=== PATIENT | female | born 1980 | race Caucasian/White ===

== ENCOUNTER 2016-08-12 03:42 | Emergency (ER) | payer MEDICAID, OTHER ==
[2016-08-12] MEDS ORDERED: NORCO 5/325MG TABLET (BULK) As Ordered ONE (04:49)
[2016-08-12] MEDS ORDERED: predniSONE 20 MG TAB As Ordered ONE (04:49)
--- NOTE | 2016-08-12 04:58 | EDDOCDS ---
Nurse's Notes [facility] Name: Angela Garcia Age: 36 yrs Sex: Female : 1980 Arrival Date: 08/12/2016 Time: 03:42 Bed 15 Private MD: No Pcp Diagnosis: Low back pain Presentation: 08/12 03:46 Presenting complaint: Patient states: out of allergy medication, states has been sls1 sneezing and thinks she pulled a muscle, reports pain to center of her back. Acute neurological deficits are not present. Mechanism of Injury: No Mechanism of Injury. Adult Sepsis Screening: The patient does not have new or worsening altered mentation. Patient's respiratory rate is less than 22. Systolic blood pressure is greater than 100. Patient has a qSOFA score of 0- Negative Sepsis Screen. Suicide/Homicide risk assessment- the patient denies having any suicidal and/or homicidal ideations and does not present with any other emotional, behavioral or mental health complaints. 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 Transition of care: patient was not received from another setting of care. 03:46 Acuity: EVERETTE Level 4 sls1 03:46 Method Of Arrival: Walkin/Carried/Asstd sls1 Triage Assessment: 03:50 General: Appears in no apparent distress, Behavior is appropriate for age, cooperative. sls1 Pain: Location: back Pain currently is 8 out of 10 on a pain scale. Pt Declines HIV testing. Neurological: No deficits noted. Respiratory: No deficits noted. 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 tyelnol as needed (Last dose: 08/12/2016 00:00) - PMHx: Seizures; PTSD; Schizophrenia; Depression; - PSHx: Hysterectomy; - Social history: Smoking status: Patient uses tobacco products, current every day smoker. No barriers to communication noted, The patient speaks fluent British. - Family history: Not pertinent. - : The pt / caregiver states he / she is not on anticoagulants. Home medication list is obtained from the patient. 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 Screenin:35 Screening information is obtained from the patient. Fall risk: No risks identified. tm5 Assistance ADL's: requires no assistance with activities of daily living. Abuse/DV Screen: The patient / caregiver reports he/she is: not in a situation that causes fear, pain or injury. Nutritional screening: No deficits noted. Advance Directives: Currently, there is no health care proxy. There is no active DNR order. home support is adequate. Assessment: 04:36 General: Appears in no apparent distress, Behavior is appropriate for age, cooperative. tm5 Pain: Location: left low back, left mid back, right mid back and right low back Pain currently is 9 out of 10 on a pain scale. Quality of pain is described as shooting, throbbing. Neurological: Level of Consciousness is awake, alert, Oriented to person, place, time. Respiratory: Airway is patent Respiratory effort is even, unlabored, Respiratory pattern is regular, symmetrical. GI: No deficits noted. : No deficits noted. Derm: Skin is pink, warm & dry. normal. Musculoskeletal: Reports pain in lumbar area, left low back, left mid back, right mid back and right low back. Vital Signs: 03:50 Pulse 86; Resp 20; Temp 97.8; Pulse Ox 99% ; Weight 68.04 kg (R); Height 5 ft. 5 in. sls1 (165.10 cm); Pain 8/10; 03:54 BP 140 / 93; sls1 03:50 Body Mass Index 24.96 (68.04 kg, 165.10 cm) [facility] Vitals: 03:50 Log In Time: August 12, 2016 at 03:42. [facility] ED Course: 03:44 Patient visited by Shan Simon Reg. pm4 03:44 Patient moved to Waiting pm4 03:45 No Pcp is Private Physician. pm4 03:47 Triage Initiated sls1 03:52 Patient moved to 15 sls1 04:15 Lj Torrez DO is Attending Physician. mm11 04:15 Patient visited by Lj Torrez DO. mm11 04:35 ED physician to see patient. tm5 04:36 The patient / caregiver is instructed regarding the plan of care and ED course. tm5 04:39 Patient visited by Lj Torrez DO. mm11 04:44 [facility] is Referral Physician. mm11 04:57 No IV's were initiated during this patient's visit. No procedures done that require tm5 assistance. Administered Medications: 04:55 Drug: predniSONE 40 mg [prednisone 20 mg tablet (2 tabs)] Route: PO; tm5 04:56 Follow up: Response: Pt left department before re-evaluation is appropriate tm5 04:56 Drug: HYDROcodone-acetaminophen 4 pack- 1 packets [hydrocodone 5 mg-acetaminophen 325 tm5 mg tablet (1 tabs)] {Co-Signature: sls1 (Sabrina Haines RN).} Route: PO; 04:56 Follow up: Response: Med's dispensed home tm5 Order Results: There are currently no results for this order. Outcome: 04:44 Discharge ordered by Provider. mm11 04:57 Discharge Assessment: Patient awake, alert and oriented x 3. No cognitive and/or tm5 functional deficits noted. Patient verbalized understanding of disposition instructions. patient administered narcotics - no. The following High Risk Discharge criteria are identified: None. Discharged to home ambulatory. Condition: good Condition: stable. Discharge instructions given to patient, Instructed on discharge instructions, follow up and referral plans. medication usage, no driving heavy equipment, Demonstrated understanding of instructions, medications, Pt was receptive of discharge instructions/ teaching. Prescriptions given X 3. No special radiology studies were completed. Property :Personal belongings accompany Pt. 04:57 Patient left the ED. tm5 Signatures: Lj Torrez DO DO mm11 Sabrina Haines RN RN sls1 Raquel Bustos RN RN tm5 Shan Simon, Reg Reg pm4 Sabrina Haines RN sls1 JUNIOR
--- NOTE | 2016-08-12 04:58 | EDDOCDS ---
Physician Documentation [facility] Name: Angela Garcia Age: 36 yrs Sex: Female : 1980 Arrival Date: 08/12/2016 Time: 03:42 Bed 15 Private MD: No Pcp Disposition: 08/12/16 04:44 Discharged to Home/Self Care. Impression: Low back pain. - Condition is Stable. - Discharge Instructions: Back Pain, Adult, Musculoskeletal Pain, Back Pain, Adult, [id number]. - Prescriptions for [place] 5- 325 mg Oral Tablet - take 1 tablet by ORAL route every 6 hours As needed MDD: 4 tabs; 6 tablet. Prednisone 20 mg Oral Tablet - take 2 tablet by ORAL route once daily for 5 days; 10 tablet. Cyclobenzaprine 10 mg Oral Tablet - take 1 tablet by ORAL route 3 times per day As needed; 15 tablet. - Medication Reconciliation, Local Pharmacy Hours form. - Follow up: [facility]; When: Call to arrange an appointment; Reason: To establish care. - Problem is an acute exacerbation. - Symptoms have improved. Historical: - Allergies: Amoxicillin; Bactrim; Sudafed; Ibuprofen; Penicillins; Pyridium; - Home Meds: 1. tyelnol as needed (Last dose: 08/12/2016 00:00) - PMHx: Seizures; PTSD; Schizophrenia; Depression; - PSHx: Hysterectomy; - Social history: Smoking status: Patient uses tobacco products, current every day smoker. No barriers to communication noted, The patient speaks fluent Malay. - Family history: Not pertinent. - : The pt / caregiver states he / she is not on anticoagulants. Home medication list is obtained from the patient. 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 5 in. (165.10 cm); Pain 8/10; 03:54 BP 140 / 93; sls1 03:50 Body Mass Index 24.96 (68.04 kg, 165.10 cm) sls1 MDM: 04:45 predniSONE 40 mg PO once; administer with food or milk ordered. mm11 04:45 HYDROcodone-acetaminophen 4 pack- 5 mg-325 mg 1 packets PO Per package directions; mm11 Dispense with patient. 1 po q4h prn for pain ordered. 04:55 Financial registration complete. hs2 Administered Medications: 04:55 Drug: predniSONE 40 mg [prednisone 20 mg tablet (2 tabs)] Route: PO; tm5 04:56 Follow up: Response: Pt left department before re-evaluation is appropriate tm5 04:56 Drug: HYDROcodone-acetaminophen 4 pack- 1 packets [hydrocodone 5 mg-acetaminophen 325 tm5 mg tablet (1 tabs)] {Co-Signature: henny1 (Sabrina Haines RN).} Route: PO; 04:56 Follow up: Response: Med's dispensed home tm5 Signatures: Lj Torrez, DO mm11 Sabrina Haines RN RN sls1 Isabel Kyle, Reg Reg hs2 Raquel Bustos RN RN tm5 Sabrina Haines RN sls1 MTDD
--- NOTE | 2016-08-14 05:58 | EDDOCDS ---
Physician Documentation [facility] Name: Angela Garcia Age: 36 yrs Sex: Female : 1980 Arrival Date: 08/12/2016 Time: 03:42 Bed 15 Private MD: No Pcp Disposition: 08/12/16 04:44 Discharged to Home/Self Care. Impression: Low back pain. - Condition is Stable. - Discharge Instructions: Back Pain, Adult, Musculoskeletal Pain, Back Pain, Adult, [id number]. - Prescriptions for [place] 5- 325 mg Oral Tablet - take 1 tablet by ORAL route every 6 hours As needed MDD: 4 tabs; 6 tablet. Prednisone 20 mg Oral Tablet - take 2 tablet by ORAL route once daily for 5 days; 10 tablet. Cyclobenzaprine 10 mg Oral Tablet - take 1 tablet by ORAL route 3 times per day As needed; 15 tablet. - Medication Reconciliation, Local Pharmacy Hours form. - Follow up: [facility]; When: Call to arrange an appointment; Reason: To establish care. - Problem is an acute exacerbation. - Symptoms have improved. Historical: - Allergies: Amoxicillin; Bactrim; Sudafed; Ibuprofen; Penicillins; Pyridium; - Home Meds: 1. tyelnol as needed (Last dose: 08/12/2016 00:00) - PMHx: Seizures; PTSD; Schizophrenia; Depression; - PSHx: Hysterectomy; - Social history: Smoking status: Patient uses tobacco products, current every day smoker. No barriers to communication noted, The patient speaks fluent Spanish. - Family history: Not pertinent. - : The pt / caregiver states he / she is not on anticoagulants. Home medication list is obtained from the patient. 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 5 in. (165.10 cm); Pain 8/10; 03:54 BP 140 / 93; sls1 03:50 Body Mass Index 24.96 (68.04 kg, 165.10 cm) sls1 MDM: 04:45 predniSONE 40 mg PO once; administer with food or milk ordered. mm11 04:45 HYDROcodone-acetaminophen 4 pack- 5 mg-325 mg 1 packets PO Per package directions; mm11 Dispense with patient. 1 po q4h prn for pain ordered. 04:55 Financial registration complete. hs2 05:03 [facility] Payment Agreement was scanned into [employer] and attached to record. hs2 12:29 T-Sheet-- Draft Copy was scanned into [employer] and attached to record. gb Administered Medications: 04:55 Drug: predniSONE 40 mg [prednisone 20 mg tablet (2 tabs)] Route: PO; tm5 04:56 Follow up: Response: Pt left department before re-evaluation is appropriate tm5 04:56 Drug: HYDROcodone-acetaminophen 4 pack- 1 packets [hydrocodone 5 mg-acetaminophen 325 tm5 mg tablet (1 tabs)] {Co-Signature: igor (Sabrina Haines RN).} Route: PO; 04:56 Follow up: Response: Med's dispensed home tm5 Signatures: Tamela Mariee, Reg Reg gb Lj Torrez, DO mm11 Sabrina Haines RN RN sls1 Isabel Kyle, Reg Reg hs2 Raquel Bustos RN RN tm5 Sabrina Haines RN sls1 The chart was reviewed and I authenticate all verbal orders and agree with the evaluation and treatment provided.Attachments: 05:03 [facility] Payment Agreement hs2 12:29 T-Sheet-- Draft Copy gb Chart Complete MTDD
--- NOTE | 2016-08-14 05:58 | EDDOCDS ---
Nurse's Notes [facility] Name: Angela Garcia Age: 36 yrs Sex: Female : 1980 Arrival Date: 08/12/2016 Time: 03:42 Bed 15 Private MD: No Pcp Diagnosis: Low back pain Presentation: 08/12 03:46 Presenting complaint: Patient states: out of allergy medication, states has been sls1 sneezing and thinks she pulled a muscle, reports pain to center of her back. Acute neurological deficits are not present. Mechanism of Injury: No Mechanism of Injury. Adult Sepsis Screening: The patient does not have new or worsening altered mentation. Patient's respiratory rate is less than 22. Systolic blood pressure is greater than 100. Patient has a qSOFA score of 0- Negative Sepsis Screen. Suicide/Homicide risk assessment- the patient denies having any suicidal and/or homicidal ideations and does not present with any other emotional, behavioral or mental health complaints. 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 Transition of care: patient was not received from another setting of care. 03:46 Acuity: EVERETTE Level 4 sls1 03:46 Method Of Arrival: Walkin/Carried/Asstd sls1 Triage Assessment: 03:50 General: Appears in no apparent distress, Behavior is appropriate for age, cooperative. sls1 Pain: Location: back Pain currently is 8 out of 10 on a pain scale. Pt Declines HIV testing. Neurological: No deficits noted. Respiratory: No deficits noted. 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 tyelnol as needed (Last dose: 08/12/2016 00:00) - PMHx: Seizures; PTSD; Schizophrenia; Depression; - PSHx: Hysterectomy; - Social history: Smoking status: Patient uses tobacco products, current every day smoker. No barriers to communication noted, The patient speaks fluent Rwandan. - Family history: Not pertinent. - : The pt / caregiver states he / she is not on anticoagulants. Home medication list is obtained from the patient. 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 Screenin:35 Screening information is obtained from the patient. Fall risk: No risks identified. tm5 Assistance ADL's: requires no assistance with activities of daily living. Abuse/DV Screen: The patient / caregiver reports he/she is: not in a situation that causes fear, pain or injury. Nutritional screening: No deficits noted. Advance Directives: Currently, there is no health care proxy. There is no active DNR order. home support is adequate. Assessment: 04:36 General: Appears in no apparent distress, Behavior is appropriate for age, cooperative. tm5 Pain: Location: left low back, left mid back, right mid back and right low back Pain currently is 9 out of 10 on a pain scale. Quality of pain is described as shooting, throbbing. Neurological: Level of Consciousness is awake, alert, Oriented to person, place, time. Respiratory: Airway is patent Respiratory effort is even, unlabored, Respiratory pattern is regular, symmetrical. GI: No deficits noted. : No deficits noted. Derm: Skin is pink, warm & dry. normal. Musculoskeletal: Reports pain in lumbar area, left low back, left mid back, right mid back and right low back. Vital Signs: 03:50 Pulse 86; Resp 20; Temp 97.8; Pulse Ox 99% ; Weight 68.04 kg (R); Height 5 ft. 5 in. sls1 (165.10 cm); Pain 8/10; 03:54 BP 140 / 93; sls1 03:50 Body Mass Index 24.96 (68.04 kg, 165.10 cm) [facility] Vitals: 03:50 Log In Time: August 12, 2016 at 03:42. [facility] ED Course: 03:44 Patient visited by Shan Simon Reg. pm4 03:44 Patient moved to Waiting pm4 03:45 No Pcp is Private Physician. pm4 03:47 Triage Initiated sls1 03:52 Patient moved to 15 sls1 04:15 Lj Torrez DO is Attending Physician. mm11 04:15 Patient visited by Lj Torrez DO. mm11 04:35 ED physician to see patient. tm5 04:36 The patient / caregiver is instructed regarding the plan of care and ED course. tm5 04:39 Patient visited by Lj Torrez DO. mm11 04:44 [facility] is Referral Physician. mm11 04:57 No IV's were initiated during this patient's visit. No procedures done that require tm5 assistance. 05:03 [facility] Payment Agreement was scanned into [employer] and attached to record. hs2 12:29 T-Sheet-- Draft Copy was scanned into [employer] and attached to record. gb Administered Medications: 04:55 Drug: predniSONE 40 mg [prednisone 20 mg tablet (2 tabs)] Route: PO; tm5 04:56 Follow up: Response: Pt left department before re-evaluation is appropriate tm5 04:56 Drug: HYDROcodone-acetaminophen 4 pack- 1 packets [hydrocodone 5 mg-acetaminophen 325 tm5 mg tablet (1 tabs)] {Co-Signature: sls1 (Sabrina Haines RN).} Route: PO; 04:56 Follow up: Response: Med's dispensed home tm5 Order Results: There are currently no results for this order. Outcome: 04:44 Discharge ordered by Provider. mm11 04:57 Discharge Assessment: Patient awake, alert and oriented x 3. No cognitive and/or tm5 functional deficits noted. Patient verbalized understanding of disposition instructions. patient administered narcotics - no. The following High Risk Discharge criteria are identified: None. Discharged to home ambulatory. Condition: good Condition: stable. Discharge instructions given to patient, Instructed on discharge instructions, follow up and referral plans. medication usage, no driving heavy equipment, Demonstrated understanding of instructions, medications, Pt was receptive of discharge instructions/ teaching. Prescriptions given X 3. No special radiology studies were completed. Property :Personal belongings accompany Pt. 04:57 Patient left the ED. tm5 Signatures: Tamela Mariee, Reg Reg gb Lj Torrez, DO mm11 Sabrina Haines RN RN sls1 Isabel Kyle, Reg Reg hs2 Raquel Bustos RN RN tm5 Shan Simon, Reg Reg pm4 Sabrina Haines RN sls1 Chart Complete MTDD
--- NOTE | 2016-08-14 05:58 | EDDOCDS ---
Physician Documentation [facility] Name: Angela Garcia Age: 36 yrs Sex: Female : 1980 Arrival Date: 08/12/2016 Time: 03:42 Bed 15 Private MD: No Pcp Disposition: 08/12/16 04:44 Discharged to Home/Self Care. Impression: Low back pain. - Condition is Stable. - Discharge Instructions: Back Pain, Adult, Musculoskeletal Pain, Back Pain, Adult, [id number]. - Prescriptions for [place] 5- 325 mg Oral Tablet - take 1 tablet by ORAL route every 6 hours As needed MDD: 4 tabs; 6 tablet. Prednisone 20 mg Oral Tablet - take 2 tablet by ORAL route once daily for 5 days; 10 tablet. Cyclobenzaprine 10 mg Oral Tablet - take 1 tablet by ORAL route 3 times per day As needed; 15 tablet. - Medication Reconciliation, Local Pharmacy Hours form. - Follow up: [facility]; When: Call to arrange an appointment; Reason: To establish care. - Problem is an acute exacerbation. - Symptoms have improved. Historical: - Allergies: Amoxicillin; Bactrim; Sudafed; Ibuprofen; Penicillins; Pyridium; - Home Meds: 1. tyelnol as needed (Last dose: 08/12/2016 00:00) - PMHx: Seizures; PTSD; Schizophrenia; Depression; - PSHx: Hysterectomy; - Social history: Smoking status: Patient uses tobacco products, current every day smoker. No barriers to communication noted, The patient speaks fluent Greek. - Family history: Not pertinent. - : The pt / caregiver states he / she is not on anticoagulants. Home medication list is obtained from the patient. 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 5 in. (165.10 cm); Pain 8/10; 03:54 BP 140 / 93; sls1 03:50 Body Mass Index 24.96 (68.04 kg, 165.10 cm) sls1 MDM: 04:45 predniSONE 40 mg PO once; administer with food or milk ordered. mm11 04:45 HYDROcodone-acetaminophen 4 pack- 5 mg-325 mg 1 packets PO Per package directions; mm11 Dispense with patient. 1 po q4h prn for pain ordered. 04:55 Financial registration complete. hs2 05:03 [facility] Payment Agreement was scanned into [employer] and attached to record. hs2 12:29 T-Sheet-- Draft Copy was scanned into [employer] and attached to record. gb Administered Medications: 04:55 Drug: predniSONE 40 mg [prednisone 20 mg tablet (2 tabs)] Route: PO; tm5 04:56 Follow up: Response: Pt left department before re-evaluation is appropriate tm5 04:56 Drug: HYDROcodone-acetaminophen 4 pack- 1 packets [hydrocodone 5 mg-acetaminophen 325 tm5 mg tablet (1 tabs)] {Co-Signature: igor (Sabrina Haines RN).} Route: PO; 04:56 Follow up: Response: Med's dispensed home tm5 Signatures: Tamela Mariee, Reg Reg gb Lj Torrez, DO mm11 Sabrina Haines RN RN sls1 Isabel Kyle, Reg Reg hs2 Raquel Bustos RN RN tm5 Sabrina Haines RN sls1 The chart was reviewed and I authenticate all verbal orders and agree with the evaluation and treatment provided.Attachments: 05:03 [facility] Payment Agreement hs2 12:29 T-Sheet-- Draft Copy gb Chart Complete MTDD
== END 2016-08-12 04:57 | disposition home or self-care (01) ==
LOC: M ED 03:42
DX: K52.9 Noninfective gastroenteritis and colitis, unspecified (principal)

== ENCOUNTER 2016-08-18 23:38 | Emergency (ER) | payer OTHER ==
[2016-08-19] MEDS ORDERED: ONDANSETRON 4 MG ORAL DISINTEGRATING TAB (S0181) As Ordered ONE (00:03)
--- NOTE | 2016-08-19 00:11 | EDDOCDS ---
Nurse's Notes [facility] Name: Angela Garcia Age: 36 yrs Sex: Female : 1980 Arrival Date: 08/18/2016 Time: 23:38 Bed I5 / M5 Private MD: No PCP Diagnosis: Low back pain-recheck Presentation: 08/18 23:48 Presenting complaint: Patient states: Back pain that began on 08/12 . Pt reports she was lf1 diagnosed with back sprain after moving heavy furniture and given pain meds and muscle relaxers. Pt. states she has not taken the pain meds because they make her nauseated. Pt states pain is currently 7/10. Acute neurological deficits are not present. Mechanism of Injury: Bending. Adult Sepsis Screening: The patient does not have new or worsening altered mentation. Patient's respiratory rate is less than 22. Systolic blood pressure is greater than 100. Patient has a qSOFA score of 0- Negative Sepsis Screen. Suicide/Homicide risk assessment- the patient denies having any suicidal and/or homicidal ideations and does not present with any other emotional, behavioral or mental health complaints. Status: Patient is not a environmental services attendant or dependent. Transition of care: patient was not received from another setting of care. 23:48 Acuity: EVERETTE Level 4 lf1 23:48 Method Of Arrival: Walkin/Carried/Asstd lf1 Triage Assessment: 23:54 General: Appears uncomfortable, Behavior is anxious, restless. Pain: Location: back lf1 Pain currently is 7 out of 10 on a pain scale. HIV screening NA for this visit Offered previously. Neurological: Level of Consciousness is awake, alert, Oriented to person, place, time. Respiratory: Respiratory effort is even, unlabored. GI: Denies nausea, vomiting. Derm: Skin is normal. 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 Tylenol 325 mg Oral tab 2 tabs every 4-6 hours - PMHx: Depression; PTSD; Schizophrenia; Seizures; - PSHx: Hysterectomy; - Social history: Smoking status: Patient uses tobacco products, current every day smoker. No barriers to communication noted, The patient speaks fluent German, Speaks appropriately for age, Preferred Language: German. - Family history: Not pertinent. - : The pt / caregiver states he / she is not on anticoagulants. Home medication list is obtained from the patient. 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 Screenin/25 00:09 Screening information is obtained from the patient. Fall risk: No risks identified. ko2 Assistance ADL's: requires no assistance with activities of daily living. Abuse/DV Screen: The patient / caregiver reports he/she is: not in a situation that causes fear, pain or injury. Nutritional screening: No deficits noted. Advance Directives: Currently, there is no health care proxy. There is no active DNR order. There is no living will. There is no Power of Jumpbasting Machine Operator. home support is adequate. Assessment: 00:08 General: Appears in no apparent distress, comfortable, Behavior is appropriate for age, ko2 cooperative. Pain: Location: back. Neurological: Level of Consciousness is awake, alert. Respiratory: Airway is patent Respiratory effort is even, unlabored. Derm: Skin is normal. Vital Signs: 08/18 23:39 BP 127 / 68; Pulse 88; Resp 18 S; Temp 98.0(O); Pulse Ox 96% on R/A; Weight 88.45 kg dd6 (R); Height 5 ft. 5 in. (165.10 cm) (R); 23:39 Body Mass Index 32.45 (88.45 kg, 165.10 cm) dd6 Vitals: 23:39 Log In Time: August 18, 2016 at 23:37. dd6 ED Course: 23:39 Patient visited by Zachariah Dorsey PCA. dd6 23:39 No PCP is Private Physician. dd6 23:39 Patient moved to Waiting dd6 23:41 Patient moved to Pre RCE dd6 23:53 Triage Initiated lf1 23:54 Gonzalez Waldron PA-C is PHCP. cc10 23:54 Jesus Mccord MD is Attending Physician. cc10 23:55 Patient moved to I5 / lf1 23:58 Patient visited by Gonzalez Waldron PA-C. cc10 23:58 Patient visited by Gonzalez Waldron PA-C. cc10 08/19 00:02 [facility] is Referral Physician. cc10 00:09 The patient / caregiver is instructed regarding the plan of care and ED course. ko2 00:10 No IV's were initiated during this patient's visit. No procedures done that require ko2 assistance. Administered Medications: 00:07 Drug: Ondansetron ODT 4 mg [ondansetron 4 mg disintegrating tablet (1 tabs)] Route: PO; ko2 Order Results: There are currently no results for this order. Outcome: 00:02 Discharge ordered by Provider. cc10 00:10 Discharge Assessment: Patient awake, alert and oriented x 3. No cognitive and/or ko2 functional deficits noted. Patient verbalized understanding of disposition instructions. patient administered narcotics - no. The following High Risk Discharge criteria are identified: None. Discharged to home ambulatory. Condition: stable. Discharge instructions given to patient, Instructed on discharge instructions, follow up and referral plans. medication usage, Demonstrated understanding of instructions, medications, Pt was receptive of discharge instructions/ teaching. Prescriptions given X 1. No special radiology studies were completed. Property sent home with patient. 00:11 Patient left the ED. ko2 Signatures: Amy Gomez,RN RN lf1 Zachariah Dorsey, BIOCHEMISTRY TECHNOLOGIST BIOCHEMISTRY TECHNOLOGIST dd6 Gonzalez Waldron PABaljinderC PA-C cc10 Lisa Lassiter,RN RN ko2 MTDD
--- NOTE | 2016-08-19 00:11 | EDDOCDS ---
Physician Documentation [facility] Name: Angela Garcia Age: 36 yrs Sex: Female : 1980 Arrival Date: 08/18/2016 Time: 23:38 Bed I5 / M5 Private MD: No PCP Disposition: 08/19/16 00:02 Discharged to Home/Self Care. Impression: Low back pain - recheck. - Condition is Stable. - Prescriptions for ZOFRAN ODT 4 mg - dissolve 1 tablet by ORAL route 4 times per day As needed do not chew, do not swallow whole; 10 tablet. - Medication Reconciliation form. - Follow up: Emergency Department; When: As needed. [facility]; When: Call to arrange an appointment; Reason: Recheck today's complaints, Continuance of care, To establish care. - Problem is chronic. - Symptoms are unchanged. Historical: - Allergies: Amoxicillin; Bactrim; Ibuprofen; PENICILLINS; Pyridium; Sudafed; - Home Meds: 1. Tylenol 325 mg Oral tab 2 tabs every 4-6 hours - PMHx: Depression; PTSD; Schizophrenia; Seizures; - PSHx: Hysterectomy; - Social history: Smoking status: Patient uses tobacco products, current every day smoker. No barriers to communication noted, The patient speaks fluent Yi, Speaks appropriately for age, Preferred Language: Yi. - Family history: Not pertinent. - : The pt / caregiver states he / she is not on anticoagulants. Home medication list is obtained from the patient. 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 5 in. (165.10 cm) (R); 23:39 Body Mass Index 32.45 (88.45 kg, 165.10 cm) dd6 MDM: 08/19 00:01 Ondansetron ODT Oral Disintegrating Tablet 4 mg PO once ordered. cc10 Administered Medications: 00:07 Drug: Ondansetron ODT 4 mg [ondansetron 4 mg disintegrating tablet (1 tabs)] Route: PO; ko2 Signatures: Amy GomezRN RN lf1 Gonzalez Waldron, BRADYC PABaljinderC cc10 Lisa Lassiter,SCARLETT RN ko2 MTDD
--- NOTE | 2016-08-21 01:12 | EDDOCDS ---
Nurse's Notes [facility] Name: Angela Garcia Age: 36 yrs Sex: Female : 1980 Arrival Date: 08/18/2016 Time: 23:38 Bed I5 / M5 Private MD: No PCP Diagnosis: Low back pain-recheck Presentation: 08/18 23:48 Presenting complaint: Patient states: Back pain that began on 08/12 . Pt reports she was lf1 diagnosed with back sprain after moving heavy furniture and given pain meds and muscle relaxers. Pt. states she has not taken the pain meds because they make her nauseated. Pt states pain is currently 7/10. Acute neurological deficits are not present. Mechanism of Injury: Bending. Adult Sepsis Screening: The patient does not have new or worsening altered mentation. Patient's respiratory rate is less than 22. Systolic blood pressure is greater than 100. Patient has a qSOFA score of 0- Negative Sepsis Screen. Suicide/Homicide risk assessment- the patient denies having any suicidal and/or homicidal ideations and does not present with any other emotional, behavioral or mental health complaints. Status: Patient is not a business services tech or dependent. Transition of care: patient was not received from another setting of care. 23:48 Acuity: EVERETTE Level 4 lf1 23:48 Method Of Arrival: Walkin/Carried/Asstd lf1 Triage Assessment: 23:54 General: Appears uncomfortable, Behavior is anxious, restless. Pain: Location: back lf1 Pain currently is 7 out of 10 on a pain scale. HIV screening NA for this visit Offered previously. Neurological: Level of Consciousness is awake, alert, Oriented to person, place, time. Respiratory: Respiratory effort is even, unlabored. GI: Denies nausea, vomiting. Derm: Skin is normal. 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 Tylenol 325 mg Oral tab 2 tabs every 4-6 hours - PMHx: Depression; PTSD; Schizophrenia; Seizures; - PSHx: Hysterectomy; - Social history: Smoking status: Patient uses tobacco products, current every day smoker. No barriers to communication noted, The patient speaks fluent Yakut, Speaks appropriately for age, Preferred Language: Yakut. - Family history: Not pertinent. - : The pt / caregiver states he / she is not on anticoagulants. Home medication list is obtained from the patient. 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 Screenin/25 00:09 Screening information is obtained from the patient. Fall risk: No risks identified. ko2 Assistance ADL's: requires no assistance with activities of daily living. Abuse/DV Screen: The patient / caregiver reports he/she is: not in a situation that causes fear, pain or injury. Nutritional screening: No deficits noted. Advance Directives: Currently, there is no health care proxy. There is no active DNR order. There is no living will. There is no Power of Business Office Assistant. home support is adequate. Assessment: 00:08 General: Appears in no apparent distress, comfortable, Behavior is appropriate for age, ko2 cooperative. Pain: Location: back. Neurological: Level of Consciousness is awake, alert. Respiratory: Airway is patent Respiratory effort is even, unlabored. Derm: Skin is normal. Vital Signs: 08/18 23:39 BP 127 / 68; Pulse 88; Resp 18 S; Temp 98.0(O); Pulse Ox 96% on R/A; Weight 88.45 kg dd6 (R); Height 5 ft. 5 in. (165.10 cm) (R); 23:39 Body Mass Index 32.45 (88.45 kg, 165.10 cm) dd6 Vitals: 23:39 Log In Time: August 18, 2016 at 23:37. dd6 ED Course: 23:39 Patient visited by Zachariah Dorsey PCA. dd6 23:39 No PCP is Private Physician. dd6 23:39 Patient moved to Waiting dd6 23:41 Patient moved to Pre RCE dd6 23:53 Triage Initiated lf1 23:54 Gonzalez Waldron PA-C is PHCP. cc10 23:54 Jesus Mccord MD is Attending Physician. cc10 23:55 Patient moved to I5 / lf1 23:58 Patient visited by Gonzalez Waldron PA-C. cc10 23:58 Patient visited by Gonzalez Waldron PA-C. cc10 08/19 00:02 [facility] is Referral Physician. cc10 00:09 The patient / caregiver is instructed regarding the plan of care and ED course. ko2 00:10 No IV's were initiated during this patient's visit. No procedures done that require ko2 assistance. 00:36 Patient name changed from Angela\S\L\S\Garcia\S\ to Angela\S\Chapin\S\Garcia. EDMS 00:37 [facility] Payment Agreement was scanned into [employer] and attached to record. pm4 02:22 T-Sheet-- Draft Copy was scanned into [employer] and attached to record. hs2 Administered Medications: 00:07 Drug: Ondansetron ODT 4 mg [ondansetron 4 mg disintegrating tablet (1 tabs)] Route: PO; ko2 Order Results: There are currently no results for this order. Outcome: 00:02 Discharge ordered by Provider. cc10 00:10 Discharge Assessment: Patient awake, alert and oriented x 3. No cognitive and/or ko2 functional deficits noted. Patient verbalized understanding of disposition instructions. patient administered narcotics - no. The following High Risk Discharge criteria are identified: None. Discharged to home ambulatory. Condition: stable. Discharge instructions given to patient, Instructed on discharge instructions, follow up and referral plans. medication usage, Demonstrated understanding of instructions, medications, Pt was receptive of discharge instructions/ teaching. Prescriptions given X 1. No special radiology studies were completed. Property sent home with patient. 00:11 Patient left the ED. ko2 Signatures: [facility] Amy Gomez RN RN lf1 Zachariah Dorsey, PATIENT SITTER PATIENT SITTER dd6 Gonzalez Waldron, PA-C PA-C cc10 Lisa Lassiter RN RN ko2 Isabel Kyle, Reg Reg hs2 Shan Simon, Reg Reg pm4 Chart Complete MTDD
--- NOTE | 2016-08-21 01:12 | EDDOCDS ---
Physician Documentation [facility] Name: Angela Garcia Age: 36 yrs Sex: Female : 1980 Arrival Date: 08/18/2016 Time: 23:38 Bed I5 / M5 Private MD: No PCP Disposition: 08/19/16 00:02 Discharged to Home/Self Care. Impression: Low back pain - recheck. - Condition is Stable. - Prescriptions for ZOFRAN ODT 4 mg - dissolve 1 tablet by ORAL route 4 times per day As needed do not chew, do not swallow whole; 10 tablet. - Medication Reconciliation form. - Follow up: Emergency Department; When: As needed. Follow [facility]: [facility]; When: Call to arrange an appointment; Reason: Recheck today's complaints, Continuance of care, To establish care. - Problem is chronic. - Symptoms are unchanged. Historical: - Allergies: Amoxicillin; Bactrim; Ibuprofen; PENICILLINS; Pyridium; Sudafed; - Home Meds: 1. Tylenol 325 mg Oral tab 2 tabs every 4-6 hours - PMHx: Depression; PTSD; Schizophrenia; Seizures; - PSHx: Hysterectomy; - Social history: Smoking status: Patient uses tobacco products, current every day smoker. No barriers to communication noted, The patient speaks fluent Arabic, Speaks appropriately for age, Preferred Language: Arabic. - Family history: Not pertinent. - : The pt / caregiver states he / she is not on anticoagulants. Home medication list is obtained from the patient. 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 5 in. (165.10 cm) (R); 23:39 Body Mass Index 32.45 (88.45 kg, 165.10 cm) dd6 MDM: 08/19 00:01 Ondansetron ODT Oral Disintegrating Tablet 4 mg PO once ordered. cc10 00:37 [facility] Payment Agreement was scanned into [employer] and attached to record. pm4 02:22 T-Sheet-- Draft Copy was scanned into [employer] and attached to record. hs2 Administered Medications: 00:07 Drug: Ondansetron ODT 4 mg [ondansetron 4 mg disintegrating tablet (1 tabs)] Route: PO; ko2 Signatures: Amy Gomez RN RN lf1 Gonzalez Waldron, SEDA PAErin cc10 Lisa Lassiter RN RN ko2 Isabel Kyle, Reg Reg hs2 Shan Simon, Reg Reg pm4 The chart was reviewed and I authenticate all verbal orders and agree with the evaluation and treatment provided.Attachments: 00:37 [facility] Payment Agreement pm4 02:22 T-Sheet-- Draft Copy hs2 Chart Complete MTDD
--- NOTE | 2016-08-21 01:12 | EDDOCDS ---
Physician Documentation [facility] Name: Angela Garcia Age: 36 yrs Sex: Female : 1980 Arrival Date: 08/18/2016 Time: 23:38 Bed I5 / M5 Private MD: No PCP Disposition: 08/19/16 00:02 Discharged to Home/Self Care. Impression: Low back pain - recheck. - Condition is Stable. - Prescriptions for ZOFRAN ODT 4 mg - dissolve 1 tablet by ORAL route 4 times per day As needed do not chew, do not swallow whole; 10 tablet. - Medication Reconciliation form. - Follow up: Emergency Department; When: As needed. [facility]: [facility]; When: Call to arrange an appointment; Reason: Recheck today's complaints, Continuance of care, To establish care. - Problem is chronic. - Symptoms are unchanged. Historical: - Allergies: Amoxicillin; Bactrim; Ibuprofen; PENICILLINS; Pyridium; Sudafed; - Home Meds: 1. Tylenol 325 mg Oral tab 2 tabs every 4-6 hours - PMHx: Depression; PTSD; Schizophrenia; Seizures; - PSHx: Hysterectomy; - Social history: Smoking status: Patient uses tobacco products, current every day smoker. No barriers to communication noted, The patient speaks fluent Romanian, Speaks appropriately for age, Preferred Language: Romanian. - Family history: Not pertinent. - : The pt / caregiver states he / she is not on anticoagulants. Home medication list is obtained from the patient. 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 5 in. (165.10 cm) (R); 23:39 Body Mass Index 32.45 (88.45 kg, 165.10 cm) dd6 MDM: 08/19 00:01 Ondansetron ODT Oral Disintegrating Tablet 4 mg PO once ordered. cc10 00:37 [facility] Payment Agreement was scanned into [employer] and attached to record. pm4 02:22 T-Sheet-- Draft Copy was scanned into [employer] and attached to record. hs2 Administered Medications: 00:07 Drug: Ondansetron ODT 4 mg [ondansetron 4 mg disintegrating tablet (1 tabs)] Route: PO; ko2 Signatures: Amy Gomez RN RN lf1 Gonzalez Waldron, SEDA PAErin cc10 Lisa Lassiter RN RN ko2 Isabel Kyle, Reg Reg hs2 Shan Simon, Reg Reg pm4 The chart was reviewed and I authenticate all verbal orders and agree with the evaluation and treatment provided.Attachments: 00:37 [facility] Payment Agreement pm4 02:22 T-Sheet-- Draft Copy hs2 Chart Complete MTDD
== END 2016-08-19 00:11 | disposition home or self-care (01) ==
LOC: M ED 23:38
DX: M54.5 Low back pain (principal); F32.9 Major depressive disorder, single episode, unspecified; F43.10 Post-traumatic stress disorder, unspecified; F20.9 Schizophrenia, unspecified; R56.9 Unspecified convulsions; F17.210 Nicotine dependence, cigarettes, uncomplicated; Z88.0 Allergy status to penicillin; Z88.2 Allergy status to sulfonamides; Z88.6 Allergy status to analgesic agent; Z88.8 Allergy status to other drugs, medicaments and biological substances

== ENCOUNTER 2016-09-01 03:57 | Emergency (ER) | payer OTHER | END 2016-09-01 05:39 | disposition left against medical advice (07) | LOC: M ED 03:57 | DX: M54.6 Pain in thoracic spine (principal); F32.9 Major depressive disorder, single episode, unspecified; F43.10 Post-traumatic stress disorder, unspecified; F20.9 Schizophrenia, unspecified; R56.9 Unspecified convulsions; Z85.41 Personal history of malignant neoplasm of cervix uteri; F17.210 Nicotine dependence, cigarettes, uncomplicated; Z79.3 Long term (current) use of hormonal contraceptives; Z88.0 Allergy status to penicillin; Z88.2 Allergy status to sulfonamides; Z88.6 Allergy status to analgesic agent; Z88.8 Allergy status to other drugs, medicaments and biological substances; Z53.21 Procedure and treatment not carried out due to patient leaving prior to being seen by health care provider ==

== ENCOUNTER 2016-09-18 17:59 | Emergency (ER) | payer OTHER ==
[2016-09-18] MEDS ORDERED: NORCO, ANEXSIA 5/325MG TABLET (HYDROcodone/ACETAMINOPHEN) As Ordered ONE (18:19)
[2016-09-18] MEDS ORDERED: ONDANSETRON 4 MG ORAL DISINTEGRATING TAB (S0181) As Ordered ONE (18:19)
--- NOTE | 2016-09-18 18:37 | REP ---
Clinical: Trauma. Technique: AP, lateral, bilateral oblique views right second and third digits . Findings: The osseous structures and joint spaces are intact and normal. There is no evidence for acute fracture or dislocation. Surrounding soft tissues are unremarkable. No subcutaneous emphysema or radiodense foreign body. Impression: No acute fracture or dislocation. Signed by Miguel Merida MD 09/18/2016 06:29 P
[2016-09-18] MEDS ORDERED: NORCO 5/325MG TABLET (BULK) As Ordered ONE (18:40)
--- NOTE | 2016-09-18 18:58 | EDDOCDS ---
Nurse's Notes [facility] Name: Angela Garcia Age: 36 yrs Sex: Female : 1980 Arrival Date: 09/18/2016 Time: 17:59 Bed TR7 Private MD: No PCP Diagnosis: Crushing injury of right index finger;Abrasion of right index finger Presentation: 09/18 18:09 Presenting complaint: Patient states: right index finger got stuck between metal runner srm pole and and metal piece of leash. abrasion to first knuckle. Adult Sepsis Screening: The patient does not have new or worsening altered mentation. Patient's respiratory rate is less than 22. Systolic blood pressure is greater than 100. Patient has a qSOFA score of 0- Negative Sepsis Screen. Suicide/Homicide risk assessment- the patient denies having any suicidal and/or homicidal ideations and does not present with any other emotional, behavioral or mental health complaints. 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 Transition of care: patient was not received from another setting of care. 18:09 Acuity: EVERETTE Level 4 srm 18:09 Method Of Arrival: Walkin/Carried/Asstd [facility] Triage Assessment: 18:12 General: Appears in no apparent distress, Behavior is anxious, appropriate for age, srm cooperative. Pain: Pain currently is 10 out of 10 on a pain scale. HIV screening NA for this visit Offered previously. Musculoskeletal: Reports pain right index finger. 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 Depo-Provera IM 2. Tylenol 325 mg Oral tab 2 tabs every 4-6 hours - PMHx: cervical cancer; Depression; PTSD; Schizophrenia; Seizures; oral cancer; - PSHx: Partial Hysterectomy; two tumors removed from roof of mouth; - Social history: Smoking status: Patient uses tobacco products, current every day smoker. No barriers to communication noted, The patient speaks fluent Upper Sorbian, Speaks appropriately for age. - Family history: No immediate family members are acutely ill. - : The pt / caregiver states he / she is not on anticoagulants. Home medication list is obtained from family members. 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 Screenin:47 Screening information is obtained from the patient. Fall risk: No risks identified. mb9 Assistance ADL's: requires no assistance with activities of daily living. Abuse/DV Screen: The patient / caregiver reports he/she is: not in a situation that causes fear, pain or injury. Nutritional screening: No deficits noted. Advance Directives: There is no active DNR order. home support is adequate. Assessment: 18:47 General: Appears in no apparent distress, Behavior is cooperative, inappropriate for mb9 age. Pain: Location: dorsal aspect of middle phalanx of right index finger and dorsal aspect of middle phalanx of right middle finger Pain currently is 5 out of 10 on a pain scale. Injury Description: Abrasion sustained to dorsal aspect of middle phalanx of right index finger and dorsal aspect of middle phalanx of right middle finger is was sustained 30-60 minutes ago. Vital Signs: 18:01 BP 138 / 83; Pulse 72; Resp 18; Temp 97.2; Pulse Ox 100% on R/A; Weight 79.38 kg; dem1 Height 5 ft. 5 in. (165.10 cm); Pain 9/10; 18:01 Body Mass Index 29.12 (79.38 kg, 165.10 cm) [facility] Vitals: 18:01 Log In Time: September 18, 2016 at 17:56. [facility] ED Course: 18:00 Patient visited by Constantino Abdul. dem1 18:00 No PCP is Private Physician. dem1 18:00 Patient moved to Waiting dem1 18:02 Patient moved to Pre RCE dem1 18:10 Triage Initiated srm 18:12 Patient moved to Triage 1 srm 18:13 Sergio Yanes PA is PHCP. mo1 18:13 Tony Yu MD is Attending Physician. mo1 18:19 Patient visited by Sergio Yanes PA. mo1 18:24 Patient moved to PR2 / 26 srm 18:24 Patient moved to Radiology srm 18:29 Patient moved to PR2 / 26 mb9 18:30 Wound care to abrasion, was soaked in Hibiclens solution, Patient tolerated poorly. jb5 screamed. 18:31 Patient visited by Nola Giron PCA. jb5 18:36 [facility] is Referral Physician. mo1 18:47 The patient / caregiver is instructed regarding the plan of care and ED course. mb9 18:47 No IV's were initiated during this patient's visit. No procedures done that require mb9 assistance. 18:50 Patient moved to TR7 mb9 18:55 Fingers Returned. EDMS Administered Medications: 18:22 Drug: HYDROcodone-acetaminophen 1 tabs [hydrocodone 5 mg-acetaminophen 325 mg tablet (1 mb9 tabs)] Route: PO; 18:50 Follow up: Response: Confirmed pt not driving.; Pain is decreased mb9 18:22 Drug: Ondansetron ODT 4 mg [ondansetron 4 mg disintegrating tablet (1 tabs)] Route: PO; mb9 18:56 Drug: HYDROcodone-acetaminophen 4 pack- 1 packets [hydrocodone 5 mg-acetaminophen 325 mb9 mg tablet (1 tabs)] {Co-Signature: srm (Sheri Denson RN).} Route: PO; Order Results: Radiology Order: Fingers Test: Fingers REASON FOR EXAMINATION: trauma, right 2-3rd; Clinical: Trauma.; ; Technique: AP, lateral, bilateral oblique views right second and third digits .; ; Findings: The osseous structures and joint spaces are intact and normal. There; is no evidence for acute fracture or dislocation. Surrounding soft tissues are; unremarkable. No subcutaneous emphysema or radiodense foreign body.; ; Impression:; No acute fracture or dislocation.; ; ; Signed by; Miguel Merida MD 09/18/2016 06:29 P; Outcome: 18:37 Discharge ordered by Provider. mo1 18:47 Discharge Assessment: Patient awake, alert and oriented x 3. No cognitive and/or mb9 functional deficits noted. Patient verbalized understanding of disposition instructions. patient administered narcotics - yes. Pt provided with safe discharge. The following High Risk Discharge criteria are identified: None. Discharged to home ambulatory. Condition: good Condition: stable Condition: improved. Discharge instructions given to patient, Instructed on discharge instructions, follow up and referral plans. medication usage, no driving heavy equipment, wound care, Demonstrated understanding of instructions, medications, Pt was receptive of discharge instructions/ teaching. No special radiology studies were completed. Property :Personal belongings accompany Pt. 18:56 Patient left the ED. mb9 Signatures: Dispatcher [employer] EDMS Sheri Denson, RN RN srm Giron, Nola, SUPERVISOR CORE SHOP SUPERVISOR CORE SHOP jb5 Constantino Abdul1 Sergio Yanes PA PA mo1 Sergio Beckman,SCARLETT RN mb9 Sheri Denson RN srm JACQUESD
--- NOTE | 2016-09-18 18:58 | EDDOCDS ---
Physician Documentation [facility] Name: Angela Garcia Age: 36 yrs Sex: Female : 1980 Arrival Date: 09/18/2016 Time: 17:59 Bed TR7 Private MD: No PCP Disposition: 09/18/16 18:37 Discharged to Home/Self Care. Impression: Crushing injury of right index finger, Abrasion of right index finger. - Condition is Stable. - Discharge Instructions: Abrasion, Crush Injury, Fingers or Toes, [id number]. - Medication Reconciliation, Local Pharmacy Hours form. - Follow up: [facility]; When: Call to arrange an appointment; Reason: Recheck today's complaints, Continuance of care. - Problem is new. - Symptoms are unchanged. Historical: - Allergies: Amoxicillin (Swelling); Bactrim (Swelling); Ibuprofen (Hives); Pyridium (Unknown); PENICILLINS (Hives); Sudafed (Unknown); - Home Meds: 1. Depo-Provera IM 2. Tylenol 325 mg Oral tab 2 tabs every 4-6 hours - PMHx: cervical cancer; Depression; PTSD; Schizophrenia; Seizures; oral cancer; - PSHx: Partial Hysterectomy; two tumors removed from roof of mouth; - Social history: Smoking status: Patient uses tobacco products, current every day smoker. No barriers to communication noted, The patient speaks fluent Canadian, Speaks appropriately for age. - Family history: No immediate family members are acutely ill. - : The pt / caregiver states he / she is not on anticoagulants. Home medication list is obtained from family members. 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 5 in. (165.10 cm); Pain 9/10; 18:01 Body Mass Index 29.12 (79.38 kg, 165.10 cm) dem1 MDM: 18:17 HYDROcodone-acetaminophen 5 mg-325 mg 1 tabs PO once ordered. mo1 18:17 Ondansetron ODT Oral Disintegrating Tablet 4 mg PO once ordered. mo1 18:17 Dressing ordered. mo1 18:18 Fingers Ordered. EDMS 18:36 HYDROcodone-acetaminophen 4 pack- 5 mg-325 mg 1 packets PO Per package directions; mo1 Dispense with patient. 1 po q4h prn for pain ordered. 18:48 Financial registration complete. kf3 Administered Medications: 18:22 Drug: HYDROcodone-acetaminophen 1 tabs [hydrocodone 5 mg-acetaminophen 325 mg tablet (1 mb9 tabs)] Route: PO; 18:50 Follow up: Response: Confirmed pt not driving.; Pain is decreased mb9 18:22 Drug: Ondansetron ODT 4 mg [ondansetron 4 mg disintegrating tablet (1 tabs)] Route: PO; 9 18:56 Drug: HYDROcodone-acetaminophen 4 pack- 1 packets [hydrocodone 5 mg-acetaminophen 325 mb9 mg tablet (1 tabs)] {Co-Signature: srm (Sheri Denson RN).} Route: PO; Signatures: Dispatcher [employer] EDSheri Yadav, SCARLETT RN srm FiddlerFrank, Reg Reg kf3 Sergio Yaens PA PA mo1 Sergio Beckman RN RN mb9 Sheri Denson RN srm MTDD
--- NOTE | 2016-09-20 19:57 | EDDOCDS ---
Physician Documentation [facility] Name: Angela Garcia Age: 36 yrs Sex: Female : 1980 Arrival Date: 09/18/2016 Time: 17:59 Bed TR7 Private MD: No PCP Disposition: 09/18/16 18:37 Discharged to Home/Self Care. Impression: Crushing injury of right index finger, Abrasion of right index finger. - Condition is Stable. - Discharge Instructions: Abrasion, Crush Injury, Fingers or Toes, [id number]. - Medication Reconciliation, Local Pharmacy Hours form. - Follow up: [facility]; When: Call to arrange an appointment; Reason: Recheck today's complaints, Continuance of care. - Problem is new. - Symptoms are unchanged. Historical: - Allergies: Amoxicillin (Swelling); Bactrim (Swelling); Ibuprofen (Hives); Pyridium (Unknown); PENICILLINS (Hives); Sudafed (Unknown); - Home Meds: 1. Depo-Provera IM 2. Tylenol 325 mg Oral tab 2 tabs every 4-6 hours - PMHx: cervical cancer; Depression; PTSD; Schizophrenia; Seizures; oral cancer; - PSHx: Partial Hysterectomy; two tumors removed from roof of mouth; - Social history: Smoking status: Patient uses tobacco products, current every day smoker. No barriers to communication noted, The patient speaks fluent Indian, Speaks appropriately for age. - Family history: No immediate family members are acutely ill. - : The pt / caregiver states he / she is not on anticoagulants. Home medication list is obtained from family members. 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 5 in. (165.10 cm); Pain 9/10; 18:01 Body Mass Index 29.12 (79.38 kg, 165.10 cm) dem1 MDM: 18:17 HYDROcodone-acetaminophen 5 mg-325 mg 1 tabs PO once ordered. mo1 18:17 Ondansetron ODT Oral Disintegrating Tablet 4 mg PO once ordered. mo1 18:17 Dressing ordered. mo1 18:18 Fingers Ordered. EDMS 18:36 HYDROcodone-acetaminophen 4 pack- 5 mg-325 mg 1 packets PO Per package directions; mo1 Dispense with patient. 1 po q4h prn for pain ordered. 18:48 Financial registration complete. kf3 19:01 [facility] Payment Agreement was scanned into [employer] and attached to record. kf3 21:00 T-Sheet-- Draft Copy was scanned into [employer] and attached to record. klr Administered Medications: 18:22 Drug: HYDROcodone-acetaminophen 1 tabs [hydrocodone 5 mg-acetaminophen 325 mg tablet (1 mb9 tabs)] Route: PO; 18:50 Follow up: Response: Confirmed pt not driving.; Pain is decreased mb9 18:22 Drug: Ondansetron ODT 4 mg [ondansetron 4 mg disintegrating tablet (1 tabs)] Route: PO; mb9 18:56 Drug: HYDROcodone-acetaminophen 4 pack- 1 packets [hydrocodone 5 mg-acetaminophen 325 mb9 mg tablet (1 tabs)] {Co-Signature: srm (Sheri Denson RN).} Route: PO; Signatures: Dispatcher [employer] EDMS Sheri Denson RN RN srm Frank Noe, Reg Reg kf3 Sergio Yanes PA PA mo1 Sergio Beckman RN RN mb9 Rosa Jin klr Sheri avalos The chart was reviewed and I authenticate all verbal orders and agree with the evaluation and treatment provided.Attachments: 19:01 [facility] Payment Agreement kf3 21:00 T-Sheet-- Draft Copy klr Chart Complete MTDD
--- NOTE | 2016-09-20 19:57 | EDDOCDS ---
Physician Documentation [facility] Name: Angela Garcia Age: 36 yrs Sex: Female : 1980 Arrival Date: 09/18/2016 Time: 17:59 Bed TR7 Private MD: No PCP Disposition: 09/18/16 18:37 Discharged to Home/Self Care. Impression: Crushing injury of right index finger, Abrasion of right index finger. - Condition is Stable. - Discharge Instructions: Abrasion, Crush Injury, Fingers or Toes, [id number]. - Medication Reconciliation, Local Pharmacy Hours form. - Follow up: [facility]; When: Call to arrange an appointment; Reason: Recheck today's complaints, Continuance of care. - Problem is new. - Symptoms are unchanged. Historical: - Allergies: Amoxicillin (Swelling); Bactrim (Swelling); Ibuprofen (Hives); Pyridium (Unknown); PENICILLINS (Hives); Sudafed (Unknown); - Home Meds: 1. Depo-Provera IM 2. Tylenol 325 mg Oral tab 2 tabs every 4-6 hours - PMHx: cervical cancer; Depression; PTSD; Schizophrenia; Seizures; oral cancer; - PSHx: Partial Hysterectomy; two tumors removed from roof of mouth; - Social history: Smoking status: Patient uses tobacco products, current every day smoker. No barriers to communication noted, The patient speaks fluent Bruneian, Speaks appropriately for age. - Family history: No immediate family members are acutely ill. - : The pt / caregiver states he / she is not on anticoagulants. Home medication list is obtained from family members. 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 5 in. (165.10 cm); Pain 9/10; 18:01 Body Mass Index 29.12 (79.38 kg, 165.10 cm) dem1 MDM: 18:17 HYDROcodone-acetaminophen 5 mg-325 mg 1 tabs PO once ordered. mo1 18:17 Ondansetron ODT Oral Disintegrating Tablet 4 mg PO once ordered. mo1 18:17 Dressing ordered. mo1 18:18 Fingers Ordered. EDMS 18:36 HYDROcodone-acetaminophen 4 pack- 5 mg-325 mg 1 packets PO Per package directions; mo1 Dispense with patient. 1 po q4h prn for pain ordered. 18:48 Financial registration complete. kf3 19:01 [facility] Payment Agreement was scanned into [employer] and attached to record. kf3 21:00 T-Sheet-- Draft Copy was scanned into [employer] and attached to record. klr Administered Medications: 18:22 Drug: HYDROcodone-acetaminophen 1 tabs [hydrocodone 5 mg-acetaminophen 325 mg tablet (1 mb9 tabs)] Route: PO; 18:50 Follow up: Response: Confirmed pt not driving.; Pain is decreased mb9 18:22 Drug: Ondansetron ODT 4 mg [ondansetron 4 mg disintegrating tablet (1 tabs)] Route: PO; mb9 18:56 Drug: HYDROcodone-acetaminophen 4 pack- 1 packets [hydrocodone 5 mg-acetaminophen 325 mb9 mg tablet (1 tabs)] {Co-Signature: srm (Sheri Denson RN).} Route: PO; Signatures: Dispatcher [employer] EDMS Sheri Denson RN RN srm Frank Noe, Reg Reg kf3 Sergio Yanes PA PA mo1 Sergio Beckman RN RN mb9 Rosa Jin klr Sheri avalos The chart was reviewed and I authenticate all verbal orders and agree with the evaluation and treatment provided.Attachments: 19:01 [facility] Payment Agreement kf3 21:00 T-Sheet-- Draft Copy klr Chart Complete MTDD
--- NOTE | 2016-09-20 19:57 | EDDOCDS ---
Nurse's Notes [facility] Name: Angela Garcia Age: 36 yrs Sex: Female : 1980 Arrival Date: 09/18/2016 Time: 17:59 Bed TR7 Private MD: No PCP Diagnosis: Crushing injury of right index finger;Abrasion of right index finger Presentation: 09/18 18:09 Presenting complaint: Patient states: right index finger got stuck between metal runner srm pole and and metal piece of leash. abrasion to first knuckle. Adult Sepsis Screening: The patient does not have new or worsening altered mentation. Patient's respiratory rate is less than 22. Systolic blood pressure is greater than 100. Patient has a qSOFA score of 0- Negative Sepsis Screen. Suicide/Homicide risk assessment- the patient denies having any suicidal and/or homicidal ideations and does not present with any other emotional, behavioral or mental health complaints. 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 Transition of care: patient was not received from another setting of care. 18:09 Acuity: EVERETTE Level 4 srm 18:09 Method Of Arrival: Walkin/Carried/Asstd [facility] Triage Assessment: 18:12 General: Appears in no apparent distress, Behavior is anxious, appropriate for age, srm cooperative. Pain: Pain currently is 10 out of 10 on a pain scale. HIV screening NA for this visit Offered previously. Musculoskeletal: Reports pain right index finger. 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 Depo-Provera IM 2. Tylenol 325 mg Oral tab 2 tabs every 4-6 hours - PMHx: cervical cancer; Depression; PTSD; Schizophrenia; Seizures; oral cancer; - PSHx: Partial Hysterectomy; two tumors removed from roof of mouth; - Social history: Smoking status: Patient uses tobacco products, current every day smoker. No barriers to communication noted, The patient speaks fluent Hebrew, Speaks appropriately for age. - Family history: No immediate family members are acutely ill. - : The pt / caregiver states he / she is not on anticoagulants. Home medication list is obtained from family members. 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 Screenin:47 Screening information is obtained from the patient. Fall risk: No risks identified. mb9 Assistance ADL's: requires no assistance with activities of daily living. Abuse/DV Screen: The patient / caregiver reports he/she is: not in a situation that causes fear, pain or injury. Nutritional screening: No deficits noted. Advance Directives: There is no active DNR order. home support is adequate. Assessment: 18:47 General: Appears in no apparent distress, Behavior is cooperative, inappropriate for mb9 age. Pain: Location: dorsal aspect of middle phalanx of right index finger and dorsal aspect of middle phalanx of right middle finger Pain currently is 5 out of 10 on a pain scale. Injury Description: Abrasion sustained to dorsal aspect of middle phalanx of right index finger and dorsal aspect of middle phalanx of right middle finger is was sustained 30-60 minutes ago. Vital Signs: 18:01 BP 138 / 83; Pulse 72; Resp 18; Temp 97.2; Pulse Ox 100% on R/A; Weight 79.38 kg; dem1 Height 5 ft. 5 in. (165.10 cm); Pain 9/10; 18:01 Body Mass Index 29.12 (79.38 kg, 165.10 cm) [facility] Vitals: 18:01 Log In Time: September 18, 2016 at 17:56. [facility] ED Course: 18:00 Patient visited by Constantino Abdul. dem1 18:00 No PCP is Private Physician. dem1 18:00 Patient moved to Waiting dem1 18:02 Patient moved to Pre RCE dem1 18:10 Triage Initiated srm 18:12 Patient moved to Triage 1 srm 18:13 Sergio Yanes PA is PHCP. mo1 18:13 Tony Yu MD is Attending Physician. mo1 18:19 Patient visited by Sergio Yanes PA. mo1 18:24 Patient moved to PR2 / 26 srm 18:24 Patient moved to Radiology srm 18:29 Patient moved to PR2 / 26 mb9 18:30 Wound care to abrasion, was soaked in Hibiclens solution, Patient tolerated poorly. jb5 screamed. 18:31 Patient visited by Nola Giron PCA. jb5 18:36 [facility] is Referral Physician. mo1 18:47 The patient / caregiver is instructed regarding the plan of care and ED course. mb9 18:47 No IV's were initiated during this patient's visit. No procedures done that require mb9 assistance. 18:50 Patient moved to TR7 mb9 18:55 Fingers Returned. EDMS 19:01 [facility] Payment Agreement was scanned into [employer] and attached to record. kf3 21:00 T-Sheet-- Draft Copy was scanned into [employer] and attached to record. klr Administered Medications: 18:22 Drug: HYDROcodone-acetaminophen 1 tabs [hydrocodone 5 mg-acetaminophen 325 mg tablet (1 mb9 tabs)] Route: PO; 18:50 Follow up: Response: Confirmed pt not driving.; Pain is decreased mb9 18:22 Drug: Ondansetron ODT 4 mg [ondansetron 4 mg disintegrating tablet (1 tabs)] Route: PO; mb9 18:56 Drug: HYDROcodone-acetaminophen 4 pack- 1 packets [hydrocodone 5 mg-acetaminophen 325 mb9 mg tablet (1 tabs)] {Co-Signature: srm (Sheri Denson RN).} Route: PO; Order Results: Radiology Order: Fingers Test: Fingers REASON FOR EXAMINATION: trauma, right 2-3rd; Clinical: Trauma.; ; Technique: AP, lateral, bilateral oblique views right second and third digits .; ; Findings: The osseous structures and joint spaces are intact and normal. There; is no evidence for acute fracture or dislocation. Surrounding soft tissues are; unremarkable. No subcutaneous emphysema or radiodense foreign body.; ; Impression:; No acute fracture or dislocation.; ; ; Signed by; Miguel Merida MD 09/18/2016 06:29 P; Outcome: 18:37 Discharge ordered by Provider. mo1 18:47 Discharge Assessment: Patient awake, alert and oriented x 3. No cognitive and/or mb9 functional deficits noted. Patient verbalized understanding of disposition instructions. patient administered narcotics - yes. Pt provided with safe discharge. The following High Risk Discharge criteria are identified: None. Discharged to home ambulatory. Condition: good Condition: stable Condition: improved. Discharge instructions given to patient, Instructed on discharge instructions, follow up and referral plans. medication usage, no driving heavy equipment, wound care, Demonstrated understanding of instructions, medications, Pt was receptive of discharge instructions/ teaching. No special radiology studies were completed. Property :Personal belongings accompany Pt. 18:56 Patient left the ED. [place] Signatures: Dispatcher [employer] EDSheri Yadav RN RN srm Baker, Janet, PCA SIDE BOSS jb5 Frank Noe, Reg Reg kf3 Constantino Abdul1 Sergio Yanes PA PA mo1 Sergio Beckman RN RN mb9 Redder, Kathie klr Staci Michelson RN [facility] Chart Complete [facility]
== END 2016-09-18 18:56 | disposition home or self-care (01) ==
LOC: M ED 17:59
DX: S60.410A Abrasion of right index finger, initial encounter (principal); S60.412A Abrasion of right middle finger, initial encounter; W23.1XXA Caught, crushed, jammed, or pinched between stationary objects, initial encounter; Y92.018 Other place in single-family (private) house as the place of occurrence of the external cause; Y93.K9 Activity, other involving animal care; Y99.8 Other external cause status; F31.9 Bipolar disorder, unspecified; F43.10 Post-traumatic stress disorder, unspecified; F20.9 Schizophrenia, unspecified; Z85.41 Personal history of malignant neoplasm of cervix uteri; Z85.819 Personal history of malignant neoplasm of unspecified site of lip, oral cavity, and pharynx; R56.9 Unspecified convulsions; Z79.3 Long term (current) use of hormonal contraceptives; Z88.0 Allergy status to penicillin; Z88.1 Allergy status to other antibiotic agents; Z88.6 Allergy status to analgesic agent; Z88.8 Allergy status to other drugs, medicaments and biological substances; F17.210 Nicotine dependence, cigarettes, uncomplicated

== ENCOUNTER 2016-09-20 23:17 | Emergency (ER) | payer OTHER ==
[2016-09-21] MEDS ORDERED: METHOCARBAMOL 500 MG TAB As Ordered ONE (00:04)
--- NOTE | 2016-09-21 00:54 | REP ---
Clinical: Trauma. Technique: AP, lateral, bilateral oblique views right hand . Findings: The osseous structures and joint spaces are intact and normal. There is no evidence for acute fracture or dislocation. Surrounding soft tissues are unremarkable. No subcutaneous emphysema or radiodense foreign body. Impression: No acute fracture or dislocation. Signed by Miguel Merida MD 09/21/2016 12:45 A
--- NOTE | 2016-09-21 00:55 | REP ---
Clinical: Trauma. Deformity/swelling. Technique: AP, lateral, flexion/extension, bilateral oblique, and open-mouth views. Findings: Alignment and lordosis is maintained. There is no evidence for acute fracture / compression injury or subluxation. Minimal age-related changes at the C3-4 and C4-5 levels suggested. Oblique views demonstrate patent neural foramen. Open mouth view demonstrates normal C1-C2 articulation and odontoid process. Impression: Essentially age-appropriate cervical spine series. No acute fracture / compression injury or subluxation. Signed by Miguel Merida MD 09/21/2016 12:47 A
--- NOTE | 2016-09-21 01:18 | EDDOCDS ---
Physician Documentation [facility] Name: Angela Garcia Age: 36 yrs Sex: Female : 1980 Arrival Date: 09/20/2016 Time: 23:17 Bed PR Private MD: Disposition: 09/21/16 00:31 Discharged to Home/Self Care. Impression: Contusion of finger without damage to nail - RIGHT INDEX, Radiculopathy, cervical region. - Condition is Stable. - Discharge Instructions: Contusion, Cervical Radiculopathy. - Prescriptions for Robaxin 500 mg Oral Tablet - take 2 tablet by ORAL route every 6 hours As needed; 40 tablet. Tramadol 50 mg Oral Tablet - take 0.5 tablet by ORAL route 4 times per day MDD: 2 tabs; 12 tablet. - Medication Reconciliation, Local Pharmacy Hours form. - Follow up: [facility]; When: 1 - 2 days; Reason: Recheck today's complaints, Continuance of care. - Problem is new. - Symptoms have improved. - Notes: CONTINUE WITH ULTRAM AT HOME, START ROBAXIN, USE ICE TO THE FINGERS, FOLLOW UP WITH [facility], CALL TOMORROW FOR AN APPOINTMENT Historical: - Allergies: Amoxicillin (Swelling); Bactrim (Swelling); Ibuprofen (Hives); PENICILLINS (Hives); Pyridium (Unknown); Sudafed (Unknown); - Home Meds: 1. Depo-Provera IM 2. 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 - Family history: Not pertinent. - : The pt / caregiver states he / she is not on anticoagulants. Home medication list is obtained from the patient. 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 5 in. (165.10 cm) (R); Pain 04/04; 09/21 00:57 BP 136 / 72; Pulse 80; Resp 18; Temp 98.4; Pulse Ox 97% ; jlm 09/20 23:19 Body Mass Index 33.28 (90.72 kg, 165.10 cm) lr2 MDM: 00:00 Methocarbamol 1 grams PO once ordered. ck7 00:01 Spine, Cervical Ordered. EDMS 00:02 Hand, Complete Ordered. EDMS Administered Medications: 00:09 Drug: Methocarbamol 1 grams [methocarbamol 500 mg tablet (2 tabs)] Route: PO; lf1 Signatures: Dispatcher [employer] EDDenisse PorrasRN RN jo3 Amy Gomez RN RN lf1 Brady Mcmillan, RPA-C RPA-Cck7 JACQUESD
--- NOTE | 2016-09-21 01:18 | EDDOCDS ---
Nurse's Notes [facility] Name: Angela Garcia Age: 36 yrs Sex: Female : 1980 Arrival Date: 09/20/2016 Time: 23:17 Bed PR Private MD: Diagnosis: Contusion of finger without damage to nail-RIGHT INDEX;Radiculopathy, cervical region Presentation: 09/20 23:25 Presenting complaint: Patient states: Pt injured right index and middle fingers on 09/18 jo3 and had XR done here. Pt initially stated that she couldn't feel her fingers but when this field underwriter asked her to take off bandage so that this field underwriter could assess fingers she screamed stating that it hurt when this field underwriter scarcely touched middle finger. This field underwriter then stated, "I thought they were numb". She then stated that the other finger is numb. Pt continued that she is is pain from her neck to her fingers. Adult Sepsis Screening: The patient does not have new or worsening altered mentation. Patient's respiratory rate is less than 22. Systolic blood pressure is greater than 100. Patient has a qSOFA score of 0- Negative Sepsis Screen. Suicide/Homicide risk assessment- the patient denies having any suicidal and/or homicidal ideations and does not present with any other emotional, behavioral or mental health complaints. Status: Patient is not a telephone answering service operator or dependent. Transition of care: patient was not received from another setting of care. 23:25 Acuity: EVERETTE Level 5 jo3 23:25 Method Of Arrival: Walkin/Carried/Asstd jo3 Triage Assessment: 23:31 General: Appears in no apparent distress, Behavior is anxious, cooperative. Pain: Pain jo3 currently is 10 out of 10 on a pain scale. HIV screening NA for this visit. Neurological: Level of Consciousness is awake, alert. 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 Depo-Provera IM 2. 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 - Family history: Not pertinent. - : The pt / caregiver states he / she is not on anticoagulants. Home medication list is obtained from the patient. 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 Screenin/27 01:14 Screening information is obtained from the patient. Fall risk: No risks identified. lf1 Assistance ADL's: requires no assistance with activities of daily living. Abuse/DV Screen: The patient / caregiver reports he/she is: not in a situation that causes fear, pain or injury. Nutritional screening: No deficits noted. Advance Directives: Currently, there is no health care proxy. home support is adequate. Assessment: 00:06 Adult Sepsis Screening: The patient does not have new or worsening altered mentation. lf1 Patient's respiratory rate is less than 22. Systolic blood pressure is greater than 100. Patient has a qSOFA score of 0- Negative Sepsis Screen. General: Appears in no apparent distress, comfortable, Behavior is cooperative. Pain: Location: right neck and right hand Pain currently is 9 out of 10 on a pain scale. Neurological: Level of Consciousness is awake, alert, Oriented to person, place, time. EENT: No deficits noted. Cardiovascular: Chest pain is denied. Respiratory: Respiratory effort is even, unlabored. GI: Denies nausea, vomiting. Derm: Reports pain that is 8 out of 10 on a pain scale. Musculoskeletal: Reports pain in right neck and right hand. 01:14 General: Appears in no apparent distress, comfortable, Behavior is cooperative. Pain: lf1 Location: right neck and right hand Pain currently is 10 out of 10 on a pain scale. Neurological: Level of Consciousness is awake, alert. Respiratory: Respiratory effort is even, unlabored. GI: Denies nausea, vomiting. Derm: Skin is normal. Vital Signs: 09/20 23:19 BP 156 / 93; Pulse 47; Resp 18; Temp 96.5; Pulse Ox 100% ; Weight 90.72 kg (R); Height lr2 5 ft. 5 in. (165.10 cm) (R); Pain 9/10; 09/21 00:57 BP 136 / 72; Pulse 80; Resp 18; Temp 98.4; Pulse Ox 97% ; jlm 09/20 23:19 Body Mass Index 33.28 (90.72 kg, 165.10 cm) lr2 Vitals: 09/20 23:19 Log In Time: September 20, 2016 at 23:17. lr2 ED Course: 23:19 Patient visited by Alondra Lamb. lr2 23:19 Patient moved to Waiting lr2 23:20 Patient moved to Pre RCE lr2 23:30 Triage Initiated jo3 23:32 Patient visited by Denisse Hodge RN. jo3 23:45 Patient moved to Triage 3 jo3 23:56 Brady Mcmillan RPA-C is PHCP. ck7 23:56 Phillip Vivas DO is Attending Physician. ck7 23:56 Patient visited by Brady Mcmillan RPA-C. ck7 09/21 00:06 Patient visited by Amy Gomez RN. lf1 00:09 Patient visited by Amy Gomez RN. lf1 00:11 Patient moved to TR1 jo3 00:31 [facility] is Referral Physician. ck7 00:50 Patient moved to PR1 / 25 jo3 01:01 Hand, Complete Returned. EDMS 01:01 Spine, Cervical Returned. EDMS 01:14 The patient / caregiver is instructed regarding the plan of care and ED course. lf1 01:14 No IV's were initiated during this patient's visit. No procedures done that require lf1 assistance. Administered Medications: 00:09 Drug: Methocarbamol 1 grams [methocarbamol 500 mg tablet (2 tabs)] Route: PO; lf1 Order Results: Radiology Order: Spine, Cervical Test: Spine, Cervical REASON FOR EXAMINATION: Deformity/Swelling; Clinical: Trauma. Deformity/swelling.; ; Technique: AP, lateral, flexion/extension, bilateral oblique, and open-mouth; views.; ; Findings:; Alignment and lordosis is maintained. There is no evidence for acute fracture /; compression injury or subluxation. Minimal age-related changes at the C3-4 and; C4-5 levels suggested. Oblique views demonstrate patent neural foramen. Open; mouth view demonstrates normal C1-C2 articulation and odontoid process.; ; Impression:; Essentially age-appropriate cervical spine series.; No acute fracture / compression injury or subluxation.; ; ; Signed by; Miguel Merida MD 09/21/2016 12:47 A; Radiology Order: Hand, Complete Test: Hand, Complete REASON FOR EXAMINATION: Deformity/Swelling; Clinical: Trauma.; ; Technique: AP, lateral, bilateral oblique views right hand .; ; Findings: The osseous structures and joint spaces are intact and normal. There; is no evidence for acute fracture or dislocation. Surrounding soft tissues are; unremarkable. No subcutaneous emphysema or radiodense foreign body.; ; Impression:; No acute fracture or dislocation.; ; ; Signed by; Miguel Merida MD 09/21/2016 12:45 A; Outcome: 00:31 Discharge ordered by Provider. ck7 01:14 Discharge Assessment: Patient awake, alert and oriented x 3. No cognitive and/or lf1 functional deficits noted. Patient verbalized understanding of disposition instructions. Patient awake and alert. Oriented to person, place and time. Patient verbalized understanding of disposition instructions. Patient has no functional deficits. patient administered narcotics - no. The following High Risk Discharge criteria are identified: None. Discharged to home ambulatory. Condition: unchanged. Discharge instructions given to patient, Instructed on discharge instructions, follow up and referral plans. medication usage, Demonstrated understanding of instructions, medications, Pt was receptive of discharge instructions/ teaching. Prescriptions given X 2. No special radiology studies were completed. Property :Personal belongings accompany Pt. 01:17 Patient left the ED. lf1 Signatures: Dispatcher [employer] EDDenisse PorrasRN Amy Gomez RN RN lf1 Brady Mcmillan, JULIET-C RPA-Cck7 Rosey George, Stretching Press Operator Unit Alondra Zaman JUNIOR
--- NOTE | 2016-09-23 02:19 | EDDOCDS ---
Physician Documentation [facility] Name: Angela Garcia Age: 36 yrs Sex: Female : 1980 Arrival Date: 09/20/2016 Time: 23:17 Bed PR Private MD: Disposition: 09/21/16 00:31 Discharged to Home/Self Care. Impression: Contusion of finger without damage to nail - RIGHT INDEX, Radiculopathy, cervical region. - Condition is Stable. - Discharge Instructions: Contusion, Cervical Radiculopathy. - Prescriptions for Robaxin 500 mg Oral Tablet - take 2 tablet by ORAL route every 6 hours As needed; 40 tablet. Tramadol 50 mg Oral Tablet - take 0.5 tablet by ORAL route 4 times per day MDD: 2 tabs; 12 tablet. - Medication Reconciliation, Local Pharmacy Hours form. - Follow up: [facility]; When: 1 - 2 days; Reason: Recheck today's complaints, Continuance of care. - Problem is new. - Symptoms have improved. - Notes: CONTINUE WITH ULTRAM AT HOME, START ROBAXIN, USE ICE TO THE FINGERS, FOLLOW UP WITH [facility], CALL TOMORROW FOR AN APPOINTMENT Historical: - Allergies: Amoxicillin (Swelling); Bactrim (Swelling); Ibuprofen (Hives); PENICILLINS (Hives); Pyridium (Unknown); Sudafed (Unknown); - Home Meds: 1. Depo-Provera IM 2. 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 - Family history: Not pertinent. - : The pt / caregiver states he / she is not on anticoagulants. Home medication list is obtained from the patient. 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 5 in. (165.10 cm) (R); Pain 04/04; 09/21 00:57 BP 136 / 72; Pulse 80; Resp 18; Temp 98.4; Pulse Ox 97% ; jlm 09/20 23:19 Body Mass Index 33.28 (90.72 kg, 165.10 cm) lr2 MDM: 00:00 Methocarbamol 1 grams PO once ordered. ck7 00:01 Spine, Cervical Ordered. EDMS 00:02 Hand, Complete Ordered. EDMS 01:25 [facility] Payment Agreement was scanned into [employer] and attached to record. hs2 10:15 T-Sheet-- Draft Copy was scanned into [employer] and attached to record. gb Administered Medications: 00:09 Drug: Methocarbamol 1 grams [methocarbamol 500 mg tablet (2 tabs)] Route: PO; lf1 Signatures: Dispatcher [employer] EDMS Tamela Mariee, Reg Reg gb Denisse HodgeRN SCARLETT jo3 Amy Gomez RN RN lf1 Brady Mcmillan, RPA-C RPA-Cck7 Isabel Kyle, Reg Reg hs2 The chart was reviewed and I authenticate all verbal orders and agree with the evaluation and treatment provided.Attachments: 01:25 [facility] Payment Agreement hs2 10:15 T-Sheet-- Draft Copy gb Chart Complete MTDD
--- NOTE | 2016-09-23 02:19 | EDDOCDS ---
Physician Documentation [facility] Name: Angela Garcia Age: 36 yrs Sex: Female : 1980 Arrival Date: 09/20/2016 Time: 23:17 Bed PR Private MD: Disposition: 09/21/16 00:31 Discharged to Home/Self Care. Impression: Contusion of finger without damage to nail - RIGHT INDEX, Radiculopathy, cervical region. - Condition is Stable. - Discharge Instructions: Contusion, Cervical Radiculopathy. - Prescriptions for Robaxin 500 mg Oral Tablet - take 2 tablet by ORAL route every 6 hours As needed; 40 tablet. Tramadol 50 mg Oral Tablet - take 0.5 tablet by ORAL route 4 times per day MDD: 2 tabs; 12 tablet. - Medication Reconciliation, Local Pharmacy Hours form. - Follow up: [facility]; When: 1 - 2 days; Reason: Recheck today's complaints, Continuance of care. - Problem is new. - Symptoms have improved. - Notes: CONTINUE WITH ULTRAM AT HOME, START ROBAXIN, USE ICE TO THE FINGERS, FOLLOW UP WITH [facility], CALL TOMORROW FOR AN APPOINTMENT Historical: - Allergies: Amoxicillin (Swelling); Bactrim (Swelling); Ibuprofen (Hives); PENICILLINS (Hives); Pyridium (Unknown); Sudafed (Unknown); - Home Meds: 1. Depo-Provera IM 2. 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 - Family history: Not pertinent. - : The pt / caregiver states he / she is not on anticoagulants. Home medication list is obtained from the patient. 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 5 in. (165.10 cm) (R); Pain 04/04; 09/21 00:57 BP 136 / 72; Pulse 80; Resp 18; Temp 98.4; Pulse Ox 97% ; jlm 09/20 23:19 Body Mass Index 33.28 (90.72 kg, 165.10 cm) lr2 MDM: 00:00 Methocarbamol 1 grams PO once ordered. ck7 00:01 Spine, Cervical Ordered. EDMS 00:02 Hand, Complete Ordered. EDMS 01:25 [facility] Payment Agreement was scanned into [employer] and attached to record. hs2 10:15 T-Sheet-- Draft Copy was scanned into [employer] and attached to record. gb Administered Medications: 00:09 Drug: Methocarbamol 1 grams [methocarbamol 500 mg tablet (2 tabs)] Route: PO; lf1 Signatures: Dispatcher [employer] EDMS Tamela Mariee, Reg Reg gb Denisse HodgeRN SCARLETT jo3 Amy Gomez RN RN lf1 Brady Mcmillan, RPA-C RPA-Cck7 Isabel Kyle, Reg Reg hs2 The chart was reviewed and I authenticate all verbal orders and agree with the evaluation and treatment provided.Attachments: 01:25 [facility] Payment Agreement hs2 10:15 T-Sheet-- Draft Copy gb Chart Complete MTDD
--- NOTE | 2016-09-23 02:20 | EDDOCDS ---
Nurse's Notes [facility] Name: Angela Garcia Age: 36 yrs Sex: Female : 1980 Arrival Date: 09/20/2016 Time: 23:17 Bed PR Private MD: Diagnosis: Contusion of finger without damage to nail-RIGHT INDEX;Radiculopathy, cervical region Presentation: 09/20 23:25 Presenting complaint: Patient states: Pt injured right index and middle fingers on 09/18 jo3 and had XR done here. Pt initially stated that she couldn't feel her fingers but when this junior technical writer asked her to take off bandage so that this junior technical writer could assess fingers she screamed stating that it hurt when this junior technical writer scarcely touched middle finger. This junior technical writer then stated, "I thought they were numb". She then stated that the other finger is numb. Pt continued that she is is pain from her neck to her fingers. Adult Sepsis Screening: The patient does not have new or worsening altered mentation. Patient's respiratory rate is less than 22. Systolic blood pressure is greater than 100. Patient has a qSOFA score of 0- Negative Sepsis Screen. Suicide/Homicide risk assessment- the patient denies having any suicidal and/or homicidal ideations and does not present with any other emotional, behavioral or mental health complaints. Status: Patient is not a resident services manager or dependent. Transition of care: patient was not received from another setting of care. 23:25 Acuity: EVERETTE Level 5 jo3 23:25 Method Of Arrival: Walkin/Carried/Asstd jo3 Triage Assessment: 23:31 General: Appears in no apparent distress, Behavior is anxious, cooperative. Pain: Pain jo3 currently is 10 out of 10 on a pain scale. HIV screening NA for this visit. Neurological: Level of Consciousness is awake, alert. PATIENT FINANCIAL COORDINATOR: 23:31 LMP N/A - control method jo3 Historical: - Allergies: Amoxicillin (Swelling); Bactrim (Swelling); Ibuprofen (Hives); PENICILLINS (Hives); Pyridium (Unknown); Sudafed (Unknown); - Home Meds: 1. Depo-Provera IM 2. Tylenol 325 mg Oral tab 2 tabs every 4-6 hours - PMHx: cervical cancer; Depression; oral cancer; PTSD; Schizophrenia; Seizures; - PSHx: Partial Hysterectomy; two tumors removed from roof of mouth; - Social history: No barriers to communication noted, The patient speaks fluent Luxembourgish, Speaks appropriately for age, Smoking status: Patient uses tobacco products, heavy tobacco smoker. - Family history: Not pertinent. - : The pt / caregiver states he / she is not on anticoagulants. Home medication list is obtained from the patient. 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 Screenin/27 01:14 Screening information is obtained from the patient. Fall risk: No risks identified. lf1 Assistance ADL's: requires no assistance with activities of daily living. Abuse/DV Screen: The patient / caregiver reports he/she is: not in a situation that causes fear, pain or injury. Nutritional screening: No deficits noted. Advance Directives: Currently, there is no health care proxy. home support is adequate. Assessment: 00:06 Adult Sepsis Screening: The patient does not have new or worsening altered mentation. lf1 Patient's respiratory rate is less than 22. Systolic blood pressure is greater than 100. Patient has a qSOFA score of 0- Negative Sepsis Screen. General: Appears in no apparent distress, comfortable, Behavior is cooperative. Pain: Location: right neck and right hand Pain currently is 9 out of 10 on a pain scale. Neurological: Level of Consciousness is awake, alert, Oriented to person, place, time. EENT: No deficits noted. Cardiovascular: Chest pain is denied. Respiratory: Respiratory effort is even, unlabored. GI: Denies nausea, vomiting. Derm: Reports pain that is 8 out of 10 on a pain scale. Musculoskeletal: Reports pain in right neck and right hand. 01:14 General: Appears in no apparent distress, comfortable, Behavior is cooperative. Pain: lf1 Location: right neck and right hand Pain currently is 10 out of 10 on a pain scale. Neurological: Level of Consciousness is awake, alert. Respiratory: Respiratory effort is even, unlabored. GI: Denies nausea, vomiting. Derm: Skin is normal. Vital Signs: 09/20 23:19 BP 156 / 93; Pulse 47; Resp 18; Temp 96.5; Pulse Ox 100% ; Weight 90.72 kg (R); Height lr2 5 ft. 5 in. (165.10 cm) (R); Pain 9/10; 09/21 00:57 BP 136 / 72; Pulse 80; Resp 18; Temp 98.4; Pulse Ox 97% ; jlm 09/20 23:19 Body Mass Index 33.28 (90.72 kg, 165.10 cm) lr2 Vitals: 09/20 23:19 Log In Time: September 20, 2016 at 23:17. lr2 ED Course: 23:19 Patient visited by Alondra Lamb. lr2 23:19 Patient moved to Waiting lr2 23:20 Patient moved to Pre RCE lr2 23:30 Triage Initiated jo3 23:32 Patient visited by Denisse Hodge RN. jo3 23:45 Patient moved to Triage 3 jo3 23:56 Brady Mcmillan RPA-C is PHCP. ck7 23:56 Phillip Vivas DO is Attending Physician. ck7 23:56 Patient visited by Brady Mcmillan RPA-C. ck7 09/21 00:06 Patient visited by Amy Gomez RN. lf1 00:09 Patient visited by Amy Gomez RN. lf1 00:11 Patient moved to TR1 jo3 00:31 [facility] is Referral Physician. ck7 00:50 Patient moved to PR1 / 25 jo3 01:01 Hand, Complete Returned. EDMS 01:01 Spine, Cervical Returned. EDMS 01:14 The patient / caregiver is instructed regarding the plan of care and ED course. lf1 01:14 No IV's were initiated during this patient's visit. No procedures done that require lf1 assistance. 01:25 [facility] Payment Agreement was scanned into [employer] and attached to record. hs2 10:15 T-Sheet-- Draft Copy was scanned into [employer] and attached to record. gb Administered Medications: 00:09 Drug: Methocarbamol 1 grams [methocarbamol 500 mg tablet (2 tabs)] Route: PO; lf1 Order Results: Radiology Order: Spine, Cervical Test: Spine, Cervical REASON FOR EXAMINATION: Deformity/Swelling; Clinical: Trauma. Deformity/swelling.; ; Technique: AP, lateral, flexion/extension, bilateral oblique, and open-mouth; views.; ; Findings:; Alignment and lordosis is maintained. There is no evidence for acute fracture /; compression injury or subluxation. Minimal age-related changes at the C3-4 and; C4-5 levels suggested. Oblique views demonstrate patent neural foramen. Open; mouth view demonstrates normal C1-C2 articulation and odontoid process.; ; Impression:; Essentially age-appropriate cervical spine series.; No acute fracture / compression injury or subluxation.; ; ; Signed by; Miguel Merida MD 09/21/2016 12:47 A; Radiology Order: Hand, Complete Test: Hand, Complete REASON FOR EXAMINATION: Deformity/Swelling; Clinical: Trauma.; ; Technique: AP, lateral, bilateral oblique views right hand .; ; Findings: The osseous structures and joint spaces are intact and normal. There; is no evidence for acute fracture or dislocation. Surrounding soft tissues are; unremarkable. No subcutaneous emphysema or radiodense foreign body.; ; Impression:; No acute fracture or dislocation.; ; ; Signed by; Miguel Merida MD 09/21/2016 12:45 A; Outcome: 00:31 Discharge ordered by Provider. ck7 01:14 Discharge Assessment: Patient awake, alert and oriented x 3. No cognitive and/or lf1 functional deficits noted. Patient verbalized understanding of disposition instructions. Patient awake and alert. Oriented to person, place and time. Patient verbalized understanding of disposition instructions. Patient has no functional deficits. patient administered narcotics - no. The following High Risk Discharge criteria are identified: None. Discharged to home ambulatory. Condition: unchanged. Discharge instructions given to patient, Instructed on discharge instructions, follow up and referral plans. medication usage, Demonstrated understanding of instructions, medications, Pt was receptive of discharge instructions/ teaching. Prescriptions given X 2. No special radiology studies were completed. Property :Personal belongings accompany Pt. 01:17 Patient left the ED. lf1 Signatures: Dispatcher [employer] EDMS Tamela Mariee, Reg Reg gb Denisse HodgeRN RN Amy Wade RN RN lf1 Brady Mcmillan, RPA-C RPA-Cck7 Rosey George, Marketing Underwriter Unit Isabel Garcia, Reg Reg hs2 Alondra Lamb2 Chart Complete MTDD
== END 2016-09-21 01:17 | disposition home or self-care (01) ==
LOC: M ED 23:17
DX: M54.12 Radiculopathy, cervical region (principal); S60.021A Contusion of right index finger without damage to nail, initial encounter; X58.XXXA Exposure to other specified factors, initial encounter; Y92.018 Other place in single-family (private) house as the place of occurrence of the external cause; Y93.89 Activity, other specified; Y99.8 Other external cause status; F32.9 Major depressive disorder, single episode, unspecified; F43.10 Post-traumatic stress disorder, unspecified; F20.9 Schizophrenia, unspecified; R56.9 Unspecified convulsions; Z85.41 Personal history of malignant neoplasm of cervix uteri; Z85.819 Personal history of malignant neoplasm of unspecified site of lip, oral cavity, and pharynx; Z79.3 Long term (current) use of hormonal contraceptives; Z88.0 Allergy status to penicillin; Z88.1 Allergy status to other antibiotic agents; Z88.6 Allergy status to analgesic agent; Z88.8 Allergy status to other drugs, medicaments and biological substances; F17.210 Nicotine dependence, cigarettes, uncomplicated

== ENCOUNTER 2016-10-05 20:25 | Emergency (ER) | payer OTHER ==
[~2016-10-05] VITALS: Ht 165.1 cm; Wt 87.1 kg
[2016-10-05 20:27] VITALS: BP 135/82
== END 2016-10-05 21:55 | disposition left against medical advice (07) ==
LOC: M ED 21:34
DX: N39.0 Urinary tract infection, site not specified (principal); Z53.21 Procedure and treatment not carried out due to patient leaving prior to being seen by health care provider

== ENCOUNTER 2016-10-13 23:23 | Emergency (ER) | payer OTHER ==
[~2016-10-13] VITALS: Ht 165.1 cm; Wt 86.2 kg
[2016-10-13] MEDS ORDERED: CLON0.5T (23:54)
[2016-10-13] MEDS ORDERED: TRAM50TA2 (23:54)
[2016-10-14] MEDS ORDERED: diazePAM 5 MG TAB PO ONE (00:15)
[2016-10-14] MEDS ORDERED: NORCO 5/325MG TABLET (BULK) PO ONE (00:15)
[2016-10-14 00:25] VITALS: BP 125/81
== END 2016-10-14 00:40 | disposition home or self-care (01) ==
LOC: M ED 10-14 00:24
DX: G89.29 Other chronic pain (principal); R56.9 Unspecified convulsions; F17.210 Nicotine dependence, cigarettes, uncomplicated; Z88.8 Allergy status to other drugs, medicaments and biological substances; Z88.2 Allergy status to sulfonamides; Z88.0 Allergy status to penicillin

== ENCOUNTER 2016-10-20 10:00 | Outpatient (RCR) | payer OTHER ==
[~2016-10-20 10:00] MED LIST: CLON0.5T; TRAM50TA2
== END 2016-10-23 ==
LOC: M PT 10:00
PROVIDERS: ATTEND Orthopaedic Surgery
DX: Z51.89 Encounter for other specified aftercare (principal); M54.2 Cervicalgia

== ENCOUNTER 2016-11-05 23:55 | Emergency (ER) | payer OTHER ==
[~2016-11-05] VITALS: Ht 165.1 cm; Wt 88.5 kg
[2016-11-06] MEDS ORDERED: RISP0.5T3 PO (00:10)
[2016-11-06] MEDS ORDERED: CITA20TA4 PO ×2 (00:10→01:19)
[2016-11-06] MEDS ORDERED: KLON0.5T PO ×2 (01:19→01:21)
[2016-11-06 01:45] VITALS: BP 123/70
== END 2016-11-06 02:08 | disposition home or self-care (01) ==
LOC: M ED 11-06 01:17
DX: Z76.0 Encounter for issue of repeat prescription (principal); F43.10 Post-traumatic stress disorder, unspecified; F17.200 Nicotine dependence, unspecified, uncomplicated; Z79.899 Other long term (current) drug therapy; Z88.6 Allergy status to analgesic agent; Z88.0 Allergy status to penicillin; Z88.8 Allergy status to other drugs, medicaments and biological substances

== ENCOUNTER → 2016-11-06 | Outpatient (REF) | payer OTHER ==
[~2016-11-06] MED LIST changes: +CITA20TA4 PO; +KLON0.5T PO; +RISP0.5T3 PO
[2016-11-06 15:33] LABS: BASO % 0.7 % (0.0-1.0); EOS # 0.1 K/mm3 (0.0-0.50); LARGE UNSTAINED CELL # 0.1 K/mm3 (0.0-0.4); LYMPH # 1.9 K/mm3 (1.5-4.5); LYMPH % 38.9 % (24.0-44.0); MEAN CORPUSCULAR HGB CONC 35.4 g/dl (32.0-36.5); MEAN CORPUSCULAR VOLUME 90.3 fl (80.0-96.0); MONO # 0.2 K/mm3 (0.0-0.8); NEUTROPHILS # 2.5 K/mm3 (1.8-7.7); NEUTROPHILS % 52.4 % (36.0-66.0); PLATELET COUNT, AUTOMATED 179 k/mm3 (150-450); RED CELL DISTRIBUTION WIDTH 12.8 % (11.5-14.5); WHITE BLOOD COUNT 4.7 K/mm3 (4.0-10.0)
[2016-11-06 15:49] LABS: ALBUMIN 3.9 GM/DL (3.2-5.2); ALBUMIN/GLOBULIN RATIO 1.39 (1.00-1.93); ALKALINE PHOSPHATASE 64 U/L (45-117); ALT/SGPT 19 U/L (12-78); ANION GAP 7 MEQ/L (8-16); AST/SGOT 9 U/L (15-37); BILIRUBIN,TOTAL 0.6 MG/DL (0.2-1.0); BLOOD UREA NITROGEN 7 MG/DL (7-18); CALCIUM LEVEL 8.7 MG/DL (8.5-10.1); CARBON DIOXIDE LEVEL 28 MEQ/L (21-32); CHLORIDE LEVEL 107 MEQ/L (98-107); CHOLESTEROL LEVEL 225 MG/DL (<200); CREATININE FOR GFR 0.85 MG/DL (0.55-1.02); GLOMERULAR FILTRATION RATE > 60.0 (>60); GLUCOSE, FASTING 122 MG/DL (70-105); POTASSIUM SERUM 4.2 MEQ/L (3.5-5.1); SODIUM LEVEL 142 MEQ/L (136-145); TOTAL PROTEIN 6.7 GM/DL (6.4-8.2); TRIGLYCERIDES LEVEL 122 MG/DL (<150)
== END ==
LOC: M SFHCPLAZ 12:38
PROVIDERS: ATTEND Physician Assistant Medical
DX: M50.30 Other cervical disc degeneration, unspecified cervical region (principal); E66.9 Obesity, unspecified

== ENCOUNTER 2016-12-06 22:56 | Emergency (ER) | payer OTHER ==
[~2016-12-06] VITALS: Ht 165.1 cm; Wt 88.0 kg
[2016-12-06 22:57] VITALS: BP 104/63
[2016-12-06] MEDS ORDERED: GABA-283 PO (23:15)
[2016-12-06] MEDS ORDERED: TIZA2CAP3 PO (23:15)
== END 2016-12-07 02:29 | disposition left against medical advice (07) ==
LOC: M ED 12-07 02:20
DX: Z53.21 Procedure and treatment not carried out due to patient leaving prior to being seen by health care provider (principal)

== ENCOUNTER → 2017-01-12 | Outpatient (CLI) | payer OTHER ==
[~2017-01-12] MED LIST changes: +GABA-283 PO; +TIZA2CAP3 PO
== END ==
LOC: M RAD 13:29
PROVIDERS: ATTEND Physician Assistant Medical
DX: M54.41 Lumbago with sciatica, right side (principal)

== ENCOUNTER 2017-11-19 23:40 | Emergency (ER) | payer OTHER, SELFPAY ==
[2017-11-20 01:36] LABS: KETONE, URINE AUTO RFX NEGATIVE (NEGATIVE); MUCUS, URINE RFX SMALL (NEGATIVE); NITRITE, URINE AUTO RFX NEGATIVE (NEGATIVE); RBC, URINE AUTO RFX 59 /HPF (0-3); SPECIFIC GRAVITY UR AUTO RFX 1.009 (1.002-1.035); SQUAM EPITHELIAL CELL UR AURFX 8 /HPF (0-6)
[2017-11-20 01:42] LABS: BASO % 0.5 % (0.0-1.0); EOS # 0.1 10^3/uL (0.0-0.50); HEMATOCRIT 38.9 % (36.0-47.0); HEMOGLOBIN 13.9 g/dl (12.0-15.5); IMMATURE GRANULOCYTE % 0.1 % (0-3.0); LYMPH % 34.4 % (24.0-44.0); MEAN CORPUSCULAR HGB CONC 35.7 g/dl (32.0-36.5); MEAN CORPUSCULAR VOLUME 86.8 fl (80.0-96.0); MONO # 0.5 10^3/uL (0.0-0.8); MONO % 6.2 % (0.0-5.0); NEUTROPHILS # 5.1 10^3/uL (1.8-7.7); NEUTROPHILS % 57.8 % (36.0-66.0); PLATELET COUNT, AUTOMATED 187 10^3/uL (150-450); RED BLOOD COUNT 4.48 10^6/uL (4.00-5.40); RED CELL DISTRIBUTION WIDTH 12.9 % (11.5-14.5); WHITE BLOOD COUNT 8.8 10^3/uL (4.0-10.0)
[2017-11-20] MEDS: ACETAMINOPHEN TAB 650MG DOSE (2X325MG) PO ×2 (01:43)
[2017-11-20 01:52] LABS: CONTROL LINE HCG INT CTR LINE PRESENT; HCG, SERUM QUALITATIVE NEGATIVE (NEGATIVE)
[2017-11-20 02:00] LABS: ALBUMIN 3.8 GM/DL (3.2-5.2); ALBUMIN/GLOBULIN RATIO 1.12 (1.00-1.93); ALKALINE PHOSPHATASE 62 U/L (45-117); ALT/SGPT 15 U/L (12-78); ANION GAP 5 MEQ/L (8-16); AST/SGOT 10 U/L (7-37); BILIRUBIN,DIRECT < 0.1 MG/DL (0.0-0.2); BILIRUBIN,TOTAL 0.4 MG/DL (0.2-1.0); BLOOD UREA NITROGEN 8 MG/DL (7-18); CALCIUM LEVEL 8.6 MG/DL (8.5-10.1); CARBON DIOXIDE LEVEL 27 MEQ/L (21-32); CHLORIDE LEVEL 108 MEQ/L (98-107); GLOMERULAR FILTRATION RATE > 60.0 (>60); GLUCOSE, FASTING 93 MG/DL (70-100); LIPASE 112 U/L (73-393); POTASSIUM SERUM 3.6 MEQ/L (3.5-5.1); SODIUM LEVEL 140 MEQ/L (136-145); TOTAL PROTEIN 7.2 GM/DL (6.4-8.2)
[2017-11-20 02:08] LABS: LEUKOCYTE ESTERASE UR AUTO RFX 3+ (NEGATIVE); WBC, URINE AUTO RFX 119 /HPF (0-3)
[2017-11-20 02:59] LABS: CHLAMYDIA DNA AMPLIFICATION NEGATIVE (NEGATIVE); GC DNA AMPLIFICATION NEGATIVE (NEGATIVE)
[2017-11-20] MEDS: KETOROLAC 30 MG/ML VIAL (J1885) IV ×2 (03:00)
[2017-11-20] MEDS: metroNIDAZOLE (FLAGYL) 500 MG TAB PO ×2 (03:51)
[2017-11-20] MEDS: CIPROFLOXACIN 500 MG TAB PO ×2 (03:51)
[2017-11-20] MEDS: NORCO, ANEXSIA 5/325MG TABLET (HYDROcodone/ACETAMINOPHEN) PO ×2 (03:52)
== END 2017-11-20 04:51 | disposition home or self-care (01) ==
LOC: M ED 23:40
DX: N39.0 Urinary tract infection, site not specified (principal); A59.01 Trichomonal vulvovaginitis; F17.210 Nicotine dependence, cigarettes, uncomplicated; Z88.8 Allergy status to other drugs, medicaments and biological substances; Z88.0 Allergy status to penicillin; Z79.899 Other long term (current) drug therapy
CPT/HCPCS: 83690

== ENCOUNTER 2017-12-06 23:57 | Emergency (ER) | payer OTHER ==
[2017-12-07] MEDS: ACETAMINOPHEN 325 MG TAB PO ×2 (03:31)
== END 2017-12-07 04:00 | disposition home or self-care (01) ==
LOC: M ED 23:57
DX: S39.012A Strain of muscle, fascia and tendon of lower back, initial encounter (principal); W10.9XXA Fall (on) (from) unspecified stairs and steps, initial encounter; Y92.89 Other specified places as the place of occurrence of the external cause; G89.29 Other chronic pain; F17.200 Nicotine dependence, unspecified, uncomplicated; Z88.8 Allergy status to other drugs, medicaments and biological substances; Z88.1 Allergy status to other antibiotic agents; Z88.2 Allergy status to sulfonamides; Z88.0 Allergy status to penicillin
CPT/HCPCS: 72100

== ENCOUNTER 2018-01-06 21:39 | Inpatient (IN) | payer OTHER, SELFPAY ==
[2018-01-06 22:54] LABS: HEMATOCRIT 38.2 % (36.0-47.0); HEMOGLOBIN 13.9 g/dl (12.0-15.5); MEAN CORPUSCULAR HEMOGLOBIN 30.9 pg (27.0-33.0); MEAN CORPUSCULAR HGB CONC 36.4 g/dl (32.0-36.5); MEAN CORPUSCULAR VOLUME 84.9 fl (80.0-96.0); PLATELET COUNT, AUTOMATED 159 10^3/uL (150-450); RED CELL DISTRIBUTION WIDTH 12.6 % (11.5-14.5); WHITE BLOOD COUNT 6.2 10^3/uL (4.0-10.0)
[2018-01-06 23:12] LABS: CONTROL LINE HCG INT CTR LINE PRESENT; HCG, SERUM QUALITATIVE NEGATIVE (NEGATIVE)
[2018-01-06 23:29] LABS: ALBUMIN 3.5 GM/DL (3.2-5.2); ALKALINE PHOSPHATASE 71 U/L (45-117); ALT/SGPT 16 U/L (12-78); ANION GAP 6 MEQ/L (8-16); AST/SGOT 6 U/L (7-37); BILIRUBIN,DIRECT < 0.1 MG/DL (0.0-0.2); BILIRUBIN,TOTAL 0.3 MG/DL (0.2-1.0); BLOOD UREA NITROGEN 9 MG/DL (7-18); CARBON DIOXIDE LEVEL 24 MEQ/L (21-32); CHLORIDE LEVEL 111 MEQ/L (98-107); CREATININE FOR GFR 0.78 MG/DL (0.55-1.30); ETHYL ALCOHOL (ETHANOL) < 0.003 % (0.000-0.010); GLOMERULAR FILTRATION RATE > 60.0 (>60); GLUCOSE, FASTING 106 MG/DL (70-100); POTASSIUM SERUM 3.8 MEQ/L (3.5-5.1); SALICYLATE LEVEL 3.2 MG/DL (5.0-30.0); SODIUM LEVEL 141 MEQ/L (136-145); TOTAL PROTEIN 6.2 GM/DL (6.4-8.2)
[2018-01-06 23:32] LABS: ACETAMINOPHEN LEVEL < 2.0 UG/ML (10.0-30.0)
[2018-01-07] MEDS ORDERED: traZODone 50 MG TAB PO (02:00)
[2018-01-07] MEDS ORDERED: MAALOX 30 ML SUSP *UDC PO (02:00)
[2018-01-07 02:03] LABS: AMPHETAMINES LEVEL URINE NEGATIVE (NEGATIVE); BARBITURATES URINE NEGATIVE (NEGATIVE); BENZODIAZEPINES URINE NEGATIVE (NEGATIVE); CANNABINOIDS URINE NEGATIVE (NEGATIVE); COCAINE METABOLITE URINE NEGATIVE (NEGATIVE); METHADONE URINE NEGATIVE (NEGATIVE); OPIATES URINE NEGATIVE (NEGATIVE); PHENCYCLIDINE URINE NEGATIVE (NEGATIVE)
[2018-01-07] MEDS: ACETAMINOPHEN TAB 650MG DOSE (2X325MG) PO ×2 (09:53→20:42)
[2018-01-07 09:55] LABS: KETONE, URINE AUTO RFX NEGATIVE (NEGATIVE); LEUKOCYTE ESTERASE UR AUTO RFX NEGATIVE (NEGATIVE); MUCUS, URINE RFX SMALL (NEGATIVE); NITRITE, URINE AUTO RFX NEGATIVE (NEGATIVE); RBC, URINE AUTO RFX 3 /HPF (0-3); SPECIFIC GRAVITY UR AUTO RFX 1.017 (1.002-1.035); SQUAM EPITHELIAL CELL UR AURFX 9 /HPF (0-6); WBC, URINE AUTO RFX 1 /HPF (0-3)
[2018-01-07] MEDS: ESCITALOPRAM OXALATE 10 MG TAB (LEXAPRO) PO (12:20)
[2018-01-07] MEDS: busPIRone 5 MG TAB PO ×3 (12:20→20:42)
[2018-01-07] MEDS: NICOTINE 21MG/24HR 1 EA TRANSDERMAL TD (12:21)
[2018-01-07] MEDS: DOXEPIN 10 MG CAP PO (20:42)
[2018-01-07] MEDS: ALBUTEROL 90 MCG/ACT 8GM HFA INHALER INH (21:46)
[2018-01-08] MEDS: NICOTINE 21MG/24HR 1 EA TRANSDERMAL TD (08:32)
[2018-01-08] MEDS: ACETAMINOPHEN TAB 650MG DOSE (2X325MG) PO ×2 (08:32→20:06)
[2018-01-08] MEDS: busPIRone 5 MG TAB PO ×3 (08:33→20:06)
[2018-01-08] MEDS: ESCITALOPRAM OXALATE 10 MG TAB (LEXAPRO) PO (08:33)
[2018-01-08] MEDS: ALBUTEROL 90 MCG/ACT 8GM HFA INHALER INH (10:31)
[2018-01-08] MEDS: DOXEPIN 10 MG CAP PO (20:05)
[2018-01-09] MEDS: ACETAMINOPHEN TAB 650MG DOSE (2X325MG) PO (06:45)
[2018-01-09] MEDS: ESCITALOPRAM OXALATE 10 MG TAB (LEXAPRO) PO (08:02)
[2018-01-09] MEDS: NICOTINE 21MG/24HR 1 EA TRANSDERMAL TD (08:02)
[2018-01-09] MEDS: busPIRone 5 MG TAB PO ×3 (08:02→20:52)
[2018-01-09] MEDS: ALBUTEROL 90 MCG/ACT 8GM HFA INHALER INH (09:00)
[2018-01-09] MEDS: MOM 30ML SUSPENSION UDC PO (20:19)
[2018-01-09] MEDS: DOXEPIN 10 MG CAP PO (20:52)
[2018-01-10] MEDS: busPIRone 5 MG TAB PO (08:21)
[2018-01-10] MEDS: ESCITALOPRAM OXALATE 10 MG TAB (LEXAPRO) PO (08:21)
[2018-01-10] MEDS: NICOTINE 21MG/24HR 1 EA TRANSDERMAL TD (08:21)
== END 2018-01-10 11:20 | disposition home or self-care (01) | DRG 755 ==
LOC: M ED INP 01-07 01:50 → M PSY 01-08 19:55 → M ED 21:39
DX: F43.10 Post-traumatic stress disorder, unspecified (principal); F32.2 Major depressive disorder, single episode, severe without psychotic features; F20.0 Paranoid schizophrenia; Z79.899 Other long term (current) drug therapy; Z88.0 Allergy status to penicillin; Z88.1 Allergy status to other antibiotic agents; Z88.6 Allergy status to analgesic agent; Z88.8 Allergy status to other drugs, medicaments and biological substances; M51.36 Other intervertebral disc degeneration, lumbar region; M54.2 Cervicalgia; M79.7 Fibromyalgia; F17.200 Nicotine dependence, unspecified, uncomplicated

== ENCOUNTER 2018-01-16 21:05 | Inpatient (IN) | payer OTHER ==
[2018-01-16] MEDS: DOXEPIN 10 MG CAP PO (21:00)
[2018-01-16 21:52] LABS: HEMOGLOBIN 14.1 g/dl (12.0-15.5); MEAN CORPUSCULAR HEMOGLOBIN 30.7 pg (27.0-33.0); MEAN CORPUSCULAR HGB CONC 36.2 g/dl (32.0-36.5); MEAN CORPUSCULAR VOLUME 84.8 fl (80.0-96.0); PLATELET COUNT, AUTOMATED 192 10^3/uL (150-450); RED CELL DISTRIBUTION WIDTH 12.9 % (11.5-14.5); WHITE BLOOD COUNT 6.4 10^3/uL (4.0-10.0)
[2018-01-16 21:54] LABS: KETONE, URINE AUTO RFX NEGATIVE (NEGATIVE); MUCUS, URINE RFX SMALL (NEGATIVE); NITRITE, URINE AUTO RFX NEGATIVE (NEGATIVE); RBC, URINE AUTO RFX 4 /HPF (0-3); SPECIFIC GRAVITY UR AUTO RFX 1.016 (1.002-1.035); SQUAM EPITHELIAL CELL UR AURFX 7 /HPF (0-6)
[2018-01-16 21:55] LABS: LEUKOCYTE ESTERASE UR AUTO RFX 2+ (NEGATIVE); WBC, URINE AUTO RFX 17 /HPF (0-3)
[2018-01-16 22:06] LABS: CONTROL LINE HCG INT CTR LINE PRESENT; HCG, SERUM QUALITATIVE NEGATIVE (NEGATIVE)
[2018-01-16 22:11] LABS: AMPHETAMINES LEVEL URINE NEGATIVE (NEGATIVE); BARBITURATES URINE NEGATIVE (NEGATIVE); BENZODIAZEPINES URINE NEGATIVE (NEGATIVE); CANNABINOIDS URINE NEGATIVE (NEGATIVE); COCAINE METABOLITE URINE NEGATIVE (NEGATIVE); METHADONE URINE NEGATIVE (NEGATIVE); OPIATES URINE NEGATIVE (NEGATIVE); PHENCYCLIDINE URINE NEGATIVE (NEGATIVE)
[2018-01-16 22:26] LABS: ALBUMIN 3.7 GM/DL (3.2-5.2); ALBUMIN/GLOBULIN RATIO 1.23 (1.00-1.93); ALKALINE PHOSPHATASE 74 U/L (45-117); ALT/SGPT 16 U/L (12-78); ANION GAP 7 MEQ/L (8-16); AST/SGOT 7 U/L (7-37); BILIRUBIN,DIRECT < 0.1 MG/DL (0.0-0.2); BILIRUBIN,TOTAL 0.4 MG/DL (0.2-1.0); BLOOD UREA NITROGEN 8 MG/DL (7-18); CALCIUM LEVEL 8.2 MG/DL (8.5-10.1); CARBON DIOXIDE LEVEL 27 MEQ/L (21-32); CHLORIDE LEVEL 108 MEQ/L (98-107); CREATININE FOR GFR 0.91 MG/DL (0.55-1.30); ETHYL ALCOHOL (ETHANOL) < 0.003 % (0.000-0.010); GLOMERULAR FILTRATION RATE > 60.0 (>60); GLUCOSE, FASTING 92 MG/DL (70-100); POTASSIUM SERUM 4.2 MEQ/L (3.5-5.1); SALICYLATE LEVEL 2.3 MG/DL (5.0-30.0); SODIUM LEVEL 142 MEQ/L (136-145); TOTAL PROTEIN 6.7 GM/DL (6.4-8.2)
[2018-01-16 22:28] LABS: ACETAMINOPHEN LEVEL < 2.0 UG/ML (10.0-30.0)
[2018-01-16] MEDS: NITROFURANTOIN (MACROBID) 100 MG CAP PO (23:12)
[2018-01-16] MEDS: FLUCONAZOLE 50MG TABLET PO (23:12)
[2018-01-16 23:31] LABS: CHLAMYDIA DNA AMPLIFICATION NEGATIVE (NEGATIVE); GC DNA AMPLIFICATION NEGATIVE (NEGATIVE)
[2018-01-16] MEDS ORDERED: MOM 30ML SUSPENSION UDC PO (23:45)
[2018-01-17] MEDS: traZODone 50 MG TAB PO (01:23)
[2018-01-17] MEDS: CLOTRIMAZOLE 1% TOPICAL CREAM 30GM TOP ×2 (10:50→20:30)
[2018-01-17] MEDS: ACETAMINOPHEN TAB 650MG DOSE (2X325MG) PO ×2 (11:36→21:32)
[2018-01-17] MEDS: NICOTINE 21MG/24HR 1 EA TRANSDERMAL TD (11:37)
[2018-01-17] MEDS: ARIPiprazole 10 MG TAB PO ×2 (13:50→20:32)
[2018-01-17] MEDS: ESCITALOPRAM OXALATE 10 MG TAB (LEXAPRO) PO (13:50)
[2018-01-17] MEDS: busPIRone 5 MG TAB PO ×2 (16:26→20:32)
[2018-01-17] MEDS: CIPROFLOXACIN 500 MG TAB PO (17:44)
[2018-01-17] MEDS: DOXEPIN 10 MG CAP PO (20:32)
[2018-01-18] MEDS: CIPROFLOXACIN 500 MG TAB PO ×2 (06:15→17:28)
[2018-01-18] MEDS: ESCITALOPRAM OXALATE 10 MG TAB (LEXAPRO) PO (09:39)
[2018-01-18] MEDS: CLOTRIMAZOLE 1% TOPICAL CREAM 30GM TOP ×2 (09:39→20:13)
[2018-01-18] MEDS: busPIRone 5 MG TAB PO ×3 (09:39→20:12)
[2018-01-18] MEDS: ARIPiprazole 10 MG TAB PO ×2 (09:39→20:12)
[2018-01-18] MEDS: NICOTINE 21MG/24HR 1 EA TRANSDERMAL TD (12:22)
[2018-01-18] MEDS: ARIPiprazole MONOHYDRATE 400 MG INJ (ABILIFY)(J0401) IM (15:37)
[2018-01-18] MEDS: ALBUTEROL 90 MCG/ACT 8GM HFA INHALER INH (20:13)
[2018-01-18] MEDS: DOXEPIN 10 MG CAP PO (20:13)
[2018-01-18] MEDS: hydrOXYzine 50 MG TAB PO (22:00)
[2018-01-18] MEDS: MAALOX 30 ML SUSP *UDC PO (22:01)
[2018-01-19] MEDS: CIPROFLOXACIN 500 MG TAB PO (06:02)
[2018-01-19] MEDS: CLOTRIMAZOLE 1% TOPICAL CREAM 30GM TOP (08:23)
[2018-01-19] MEDS: busPIRone 5 MG TAB PO (08:26)
[2018-01-19] MEDS: ESCITALOPRAM OXALATE 10 MG TAB (LEXAPRO) PO (08:26)
[2018-01-19] MEDS: NICOTINE 21MG/24HR 1 EA TRANSDERMAL TD (08:26)
[2018-01-19] MEDS: ARIPiprazole 10 MG TAB PO (08:26)
== END 2018-01-19 10:30 | disposition home or self-care (01) | DRG 751 ==
LOC: M ED INP 21:53 → M PSY 01-17 00:48 → M ED 21:05 → M PSY 01-17 16:17
DX: F32.2 Major depressive disorder, single episode, severe without psychotic features (principal); B35.8 Other dermatophytoses; F20.0 Paranoid schizophrenia; F43.10 Post-traumatic stress disorder, unspecified; F17.200 Nicotine dependence, unspecified, uncomplicated; B37.3 Candidiasis of vulva and vagina; Z79.899 Other long term (current) drug therapy; Z88.0 Allergy status to penicillin; Z88.5 Allergy status to narcotic agent; Z88.6 Allergy status to analgesic agent; Z88.2 Allergy status to sulfonamides; J45.909 Unspecified asthma, uncomplicated; M79.7 Fibromyalgia; M54.2 Cervicalgia

== ENCOUNTER 2018-02-09 01:19 | Emergency (ER) | payer MEDICAID, OTHER ==
[2018-02-09 04:34] LABS: BASO % 0.4 % (0.0-1.0); EOS # 0.1 10^3/uL (0.0-0.50); EOS % 1.5 % (0.0-3.0); HEMATOCRIT 43.3 % (36.0-47.0); HEMOGLOBIN 15.2 g/dl (12.0-15.5); IMMATURE GRANULOCYTE % 0.3 % (0-3.0); LYMPH # 2.5 10^3/uL (1.5-4.5); LYMPH % 37.8 % (24.0-44.0); MEAN CORPUSCULAR HEMOGLOBIN 30.8 pg (27.0-33.0); MEAN CORPUSCULAR HGB CONC 35.1 g/dl (32.0-36.5); MEAN CORPUSCULAR VOLUME 87.8 fl (80.0-96.0); MONO # 0.4 10^3/uL (0.0-0.8); MONO % 5.5 % (0.0-5.0); NEUTROPHILS # 3.6 10^3/uL (1.8-7.7); NEUTROPHILS % 54.5 % (36.0-66.0); PLATELET COUNT, AUTOMATED 187 10^3/uL (150-450); RED BLOOD COUNT 4.93 10^6/uL (4.00-5.40); RED CELL DISTRIBUTION WIDTH 13.1 % (11.5-14.5); WHITE BLOOD COUNT 6.7 10^3/uL (4.0-10.0)
[2018-02-09 04:38] LABS: APPEARANCE, URINE HAZY (CLEAR); BACTERIA, URINE AUTO NEGATIVE (NEGATIVE); BILIRUBIN, URINE AUTO NEGATIVE (NEGATIVE); BLOOD, URINE BLOOD 1+ (NEGATIVE); COLOR, URINE YELLOW (YELLOW); GLUCOSE, URINE (UA) AUTO NEGATIVE (NEGATIVE); KETONE, URINE AUTO NEGATIVE (NEGATIVE); LEUKOCYTE ESTERASE, URINE AUTO NEGATIVE (NEGATIVE); NITRITE, URINE AUTO NEGATIVE (NEGATIVE); PROTEIN, URINE AUTO NEGATIVE (NEGATIVE); RBC, URINE AUTO 4 /HPF (0-3); SPECIFIC GRAVITY URINE AUTO 1.009 (1.002-1.035); SQUAMOUS EPITHELIAL CELL UR AU 7 /HPF (0-6); UROBILINOGEN, URINE AUTO 0.2 mg/dL (0.0-2.0); WBC, URINE AUTO 2 /HPF (0-3)
[2018-02-09] MEDS: GASTROGRAFIN SOLUTION 30ML PO ×2 (04:48→05:10)
[2018-02-09 04:51] LABS: CONTROL LINE HCG INT CTR LINE PRESENT; HCG, SERUM QUALITATIVE NEGATIVE (NEGATIVE)
[2018-02-09 04:58] LABS: ALBUMIN 3.7 GM/DL (3.2-5.2); ALBUMIN/GLOBULIN RATIO 1.06 (1.00-1.93); ALKALINE PHOSPHATASE 77 U/L (45-117); ALT/SGPT 25 U/L (12-78); ANION GAP 5 MEQ/L (8-16); AST/SGOT 20 U/L (7-37); BILIRUBIN,DIRECT < 0.1 MG/DL (0.0-0.2); BILIRUBIN,TOTAL 0.3 MG/DL (0.2-1.0); BLOOD UREA NITROGEN 11 MG/DL (7-18); CALCIUM LEVEL 8.5 MG/DL (8.5-10.1); CARBON DIOXIDE LEVEL 27 MEQ/L (21-32); CHLORIDE LEVEL 109 MEQ/L (98-107); CREATININE FOR GFR 0.83 MG/DL (0.55-1.30); GLOMERULAR FILTRATION RATE > 60.0 (>60); GLUCOSE, FASTING 100 MG/DL (70-100); LIPASE 90 U/L (73-393); POTASSIUM SERUM 4.1 MEQ/L (3.5-5.1); SODIUM LEVEL 141 MEQ/L (136-145); TOTAL PROTEIN 7.2 GM/DL (6.4-8.2)
[2018-02-09] MEDS: KETOROLAC 30 MG/ML VIAL (J1885) IV (05:46)
[2018-02-09] MEDS ORDERED: ISOVUE-370 76% 100ML VIAL (Q9967) As Ordered (05:58)
== END 2018-02-09 06:52 | disposition home or self-care (01) ==
LOC: M ED 01:19
DX: N83.202 Unspecified ovarian cyst, left side (principal); F31.9 Bipolar disorder, unspecified; F10.10 Alcohol abuse, uncomplicated; F19.10 Other psychoactive substance abuse, uncomplicated; G89.29 Other chronic pain; Z79.899 Other long term (current) drug therapy; Z88.0 Allergy status to penicillin; Z88.2 Allergy status to sulfonamides; Z88.5 Allergy status to narcotic agent; Z88.8 Allergy status to other drugs, medicaments and biological substances; Z91.018 Allergy to other foods; F17.210 Nicotine dependence, cigarettes, uncomplicated
CPT/HCPCS: Q9963

== ENCOUNTER 2018-02-13 03:11 | Emergency (ER) | payer MEDICAID ==
[2018-02-13] MEDS: ONDANSETRON 4 MG ORAL DISINTEGRATING TAB (Q0162 PER 1MG) PO (06:17)
[2018-02-13] MEDS: PERCOCET 5MG/325MG TAB PO (06:17)
[2018-02-13 06:43] LABS: KETONE, URINE AUTO RFX NEGATIVE (NEGATIVE); LEUKOCYTE ESTERASE UR AUTO RFX NEGATIVE (NEGATIVE); NITRITE, URINE AUTO RFX NEGATIVE (NEGATIVE); RBC, URINE AUTO RFX 2 /HPF (0-3); SPECIFIC GRAVITY UR AUTO RFX 1.013 (1.002-1.035); SQUAM EPITHELIAL CELL UR AURFX 1 /HPF (0-6); WBC, URINE AUTO RFX 0 /HPF (0-3)
== END 2018-02-13 07:53 | disposition home or self-care (01) ==
LOC: M ED 03:11
DX: N83.292 Other ovarian cyst, left side (principal); I10 Essential (primary) hypertension; E66.9 Obesity, unspecified; Z72.0 Tobacco use; Z79.899 Other long term (current) drug therapy; Z88.6 Allergy status to analgesic agent; Z88.0 Allergy status to penicillin; Z88.5 Allergy status to narcotic agent; Z88.8 Allergy status to other drugs, medicaments and biological substances; Z91.018 Allergy to other foods
CPT/HCPCS: Q0162

== ENCOUNTER 2018-02-24 16:02 | Inpatient (IN) | payer MEDICAID ==
[2018-02-24 17:22] LABS: HEMATOCRIT 40.8 % (36.0-47.0); HEMOGLOBIN 14.6 g/dl (12.0-15.5); MEAN CORPUSCULAR HEMOGLOBIN 31.1 pg (27.0-33.0); MEAN CORPUSCULAR HGB CONC 35.8 g/dl (32.0-36.5); MEAN CORPUSCULAR VOLUME 86.8 fl (80.0-96.0); PLATELET COUNT, AUTOMATED 198 10^3/uL (150-450); RED CELL DISTRIBUTION WIDTH 12.6 % (11.5-14.5); WHITE BLOOD COUNT 6.5 10^3/uL (4.0-10.0)
[2018-02-24 17:44] LABS: CONTROL LINE HCG INT CTR LINE PRESENT; HCG, SERUM QUALITATIVE NEGATIVE (NEGATIVE)
[2018-02-24 18:01] LABS: ALBUMIN 3.8 GM/DL (3.2-5.2); ALBUMIN/GLOBULIN RATIO 1.19 (1.00-1.93); ALKALINE PHOSPHATASE 71 U/L (45-117); ALT/SGPT 18 U/L (12-78); ANION GAP 8 MEQ/L (8-16); AST/SGOT 9 U/L (7-37); BILIRUBIN,DIRECT 0.1 MG/DL (0.0-0.2); BILIRUBIN,TOTAL 0.5 MG/DL (0.2-1.0); BLOOD UREA NITROGEN 9 MG/DL (7-18); CALCIUM LEVEL 8.6 MG/DL (8.5-10.1); CARBON DIOXIDE LEVEL 26 MEQ/L (21-32); CHLORIDE LEVEL 107 MEQ/L (98-107); CREATININE FOR GFR 0.85 MG/DL (0.55-1.30); ETHYL ALCOHOL (ETHANOL) < 0.003 % (0.000-0.010); GLOMERULAR FILTRATION RATE > 60.0 (>60); GLUCOSE, FASTING 100 MG/DL (70-100); POTASSIUM SERUM 3.9 MEQ/L (3.5-5.1); SALICYLATE LEVEL 3.1 MG/DL (5.0-30.0); SODIUM LEVEL 141 MEQ/L (136-145)
[2018-02-24 18:24] LABS: ACETAMINOPHEN LEVEL < 2.0 UG/ML (10.0-30.0)
[2018-02-24 18:44] LABS: AMPHETAMINES LEVEL URINE NEGATIVE (NEGATIVE); BARBITURATES URINE NEGATIVE (NEGATIVE); BENZODIAZEPINES URINE NEGATIVE (NEGATIVE); CANNABINOIDS URINE NEGATIVE (NEGATIVE); COCAINE METABOLITE URINE NEGATIVE (NEGATIVE); METHADONE URINE NEGATIVE (NEGATIVE); OPIATES URINE NEGATIVE (NEGATIVE); PHENCYCLIDINE URINE NEGATIVE (NEGATIVE)
[2018-02-24] MEDS ORDERED: MOM 30ML SUSPENSION UDC PO (19:30)
[2018-02-24] MEDS ORDERED: MAALOX 30 ML SUSP *UDC PO (19:30)
[2018-02-24] MEDS ORDERED: hydrOXYzine 50 MG TAB PO (19:30)
[2018-02-24] MEDS: ARIPiprazole 10 MG TAB PO (21:00)
[2018-02-24] MEDS: traZODone 50 MG TAB PO (21:15)
[2018-02-24] MEDS: busPIRone 5 MG TAB PO (21:15)
[2018-02-25] MEDS: ARIPiprazole 10 MG TAB PO (07:59)
[2018-02-25] MEDS: busPIRone 5 MG TAB PO (08:00)
[2018-02-25] MEDS: ESCITALOPRAM OXALATE 10 MG TAB (LEXAPRO) PO (08:00)
[2018-02-25] MEDS: METAMUCIL (PSYLLIUM) PACKET PO (09:00)
[2018-02-25] MEDS: NICOTINE 21MG/24HR 1 EA TRANSDERMAL TD (09:29)
[2018-02-25] MEDS ORDERED: ALBUTEROL 90 MCG/ACT 8GM HFA INHALER INH (10:00)
[2018-02-25] MEDS ORDERED: tiZANidine 4 MG TAB PO (10:00)
[2018-02-25] MEDS: ARIPiprazole MONOHYDRATE 400 MG INJ (ABILIFY)(J0401) IM (13:32)
== END 2018-02-25 13:50 | disposition home or self-care (01) | DRG 885 ==
LOC: M ED 16:02 → M ED INP 19:29 → M PSY 20:13
DX: F32.2 Major depressive disorder, single episode, severe without psychotic features (principal); R45.851 Suicidal ideations; F43.10 Post-traumatic stress disorder, unspecified; F70 Mild intellectual disabilities; Z91.5 Personal history of self-harm; Z79.899 Other long term (current) drug therapy; Z88.1 Allergy status to other antibiotic agents; Z88.0 Allergy status to penicillin; Z88.2 Allergy status to sulfonamides; Z88.6 Allergy status to analgesic agent; Z91.048 Other nonmedicinal substance allergy status; Z88.8 Allergy status to other drugs, medicaments and biological substances; J45.909 Unspecified asthma, uncomplicated; M54.2 Cervicalgia; M54.5 Low back pain; M79.7 Fibromyalgia; K59.09 Other constipation; F17.210 Nicotine dependence, cigarettes, uncomplicated; N83.202 Unspecified ovarian cyst, left side

== ENCOUNTER 2018-03-27 01:25 | Emergency (ER) | payer OTHER, MEDICAID ==
[2018-03-27 02:16] LABS: CONTROL LINE HCG INT CTR LINE PRESENT; HCG, SERUM QUALITATIVE NEGATIVE (NEGATIVE)
[2018-03-27 02:21] LABS: HEMATOCRIT 40.1 % (36.0-47.0); HEMOGLOBIN 14.4 g/dl (12.0-15.5); MEAN CORPUSCULAR HEMOGLOBIN 31.2 pg (27.0-33.0); MEAN CORPUSCULAR HGB CONC 35.9 g/dl (32.0-36.5); MEAN CORPUSCULAR VOLUME 86.8 fl (80.0-96.0); PLATELET COUNT, AUTOMATED 191 10^3/uL (150-450); RED BLOOD COUNT 4.62 10^6/uL (4.00-5.40); RED CELL DISTRIBUTION WIDTH 12.3 % (11.5-14.5); WHITE BLOOD COUNT 7.1 10^3/uL (4.0-10.0)
[2018-03-27 02:26] LABS: AMPHETAMINES LEVEL URINE NEGATIVE (NEGATIVE); BARBITURATES URINE NEGATIVE (NEGATIVE); BENZODIAZEPINES URINE NEGATIVE (NEGATIVE); CANNABINOIDS URINE NEGATIVE (NEGATIVE); COCAINE METABOLITE URINE NEGATIVE (NEGATIVE); METHADONE URINE NEGATIVE (NEGATIVE); OPIATES URINE NEGATIVE (NEGATIVE); PHENCYCLIDINE URINE NEGATIVE (NEGATIVE)
[2018-03-27 02:33] LABS: ALBUMIN 3.8 GM/DL (3.2-5.2); ALBUMIN/GLOBULIN RATIO 1.15 (1.00-1.93); ALKALINE PHOSPHATASE 70 U/L (45-117); ALT/SGPT 18 U/L (12-78); ANION GAP 6 MEQ/L (8-16); AST/SGOT 11 U/L (7-37); BILIRUBIN,DIRECT < 0.1 MG/DL (0.0-0.2); BILIRUBIN,TOTAL 0.3 MG/DL (0.2-1.0); BLOOD UREA NITROGEN 10 MG/DL (7-18); CALCIUM LEVEL 8.8 MG/DL (8.5-10.1); CARBON DIOXIDE LEVEL 24 MEQ/L (21-32); CHLORIDE LEVEL 110 MEQ/L (98-107); CREATININE FOR GFR 0.75 MG/DL (0.55-1.30); ETHYL ALCOHOL (ETHANOL) 0.003 % (0.000-0.010); GLOMERULAR FILTRATION RATE > 60.0 (>60); GLUCOSE, FASTING 103 MG/DL (70-100); POTASSIUM SERUM 3.9 MEQ/L (3.5-5.1); SALICYLATE LEVEL 3.5 MG/DL (5.0-30.0); SODIUM LEVEL 140 MEQ/L (136-145); TOTAL PROTEIN 7.1 GM/DL (6.4-8.2)
[2018-03-27 02:36] LABS: ACETAMINOPHEN LEVEL < 2.0 UG/ML (10.0-30.0)
== END 2018-03-27 05:02 | disposition home or self-care (01) ==
LOC: M ED 01:25
DX: F43.9 Reaction to severe stress, unspecified (principal); F17.200 Nicotine dependence, unspecified, uncomplicated
CPT/HCPCS: 80320

== ENCOUNTER 2018-04-15 16:29 | Inpatient (IN) | payer MEDICAID, OTHER ==
[2018-04-15 17:13] LABS: HEMATOCRIT 38.7 % (36.0-47.0); HEMOGLOBIN 13.7 g/dl (12.0-15.5); MEAN CORPUSCULAR HEMOGLOBIN 30.8 pg (27.0-33.0); MEAN CORPUSCULAR HGB CONC 35.4 g/dl (32.0-36.5); PLATELET COUNT, AUTOMATED 197 10^3/uL (150-450); RED BLOOD COUNT 4.45 10^6/uL (4.00-5.40); RED CELL DISTRIBUTION WIDTH 12.4 % (11.5-14.5); WHITE BLOOD COUNT 7.1 10^3/uL (4.0-10.0)
[2018-04-15 17:29] LABS: CONTROL LINE HCG INT CTR LINE PRESENT; HCG, SERUM QUALITATIVE NEGATIVE (NEGATIVE)
[2018-04-15 17:47] LABS: ACETAMINOPHEN LEVEL < 2.0 UG/ML (10.0-30.0); ALBUMIN 3.6 GM/DL (3.2-5.2); ALBUMIN/GLOBULIN RATIO 1.29 (1.00-1.93); ALKALINE PHOSPHATASE 59 U/L (45-117); ALT/SGPT 19 U/L (12-78); ANION GAP 7 MEQ/L (8-16); AST/SGOT 8 U/L (7-37); BILIRUBIN,DIRECT < 0.1 MG/DL (0.0-0.2); BILIRUBIN,TOTAL 0.3 MG/DL (0.2-1.0); BLOOD UREA NITROGEN 6 MG/DL (7-18); CALCIUM LEVEL 8.1 MG/DL (8.5-10.1); CARBON DIOXIDE LEVEL 25 MEQ/L (21-32); CHLORIDE LEVEL 110 MEQ/L (98-107); CREATININE FOR GFR 0.86 MG/DL (0.55-1.30); ETHYL ALCOHOL (ETHANOL) < 0.003 % (0.000-0.010); GLOMERULAR FILTRATION RATE > 60.0 (>60); GLUCOSE, FASTING 86 MG/DL (70-100); POTASSIUM SERUM 3.7 MEQ/L (3.5-5.1); SALICYLATE LEVEL 2.6 MG/DL (5.0-30.0); SODIUM LEVEL 142 MEQ/L (136-145); TOTAL PROTEIN 6.4 GM/DL (6.4-8.2)
[2018-04-15 18:03] LABS: AMPHETAMINES LEVEL URINE NEGATIVE (NEGATIVE); BARBITURATES URINE NEGATIVE (NEGATIVE); BENZODIAZEPINES URINE NEGATIVE (NEGATIVE); CANNABINOIDS URINE NEGATIVE (NEGATIVE); COCAINE METABOLITE URINE NEGATIVE (NEGATIVE); METHADONE URINE NEGATIVE (NEGATIVE); OPIATES URINE NEGATIVE (NEGATIVE); PHENCYCLIDINE URINE NEGATIVE (NEGATIVE)
[2018-04-15] MEDS ORDERED: MAALOX 30 ML SUSP *UDC PO (19:00)
[2018-04-15] MEDS ORDERED: traZODone 50 MG TAB PO (19:00)
[2018-04-16] MEDS: ESCITALOPRAM OXALATE 10 MG TAB (LEXAPRO) PO (11:30)
[2018-04-16] MEDS: busPIRone 5 MG TAB PO ×3 (11:30→21:22)
[2018-04-16] MEDS: ARIPiprazole MONOHYDRATE 400 MG INJ (ABILIFY)(J0401) IM (11:34)
[2018-04-16] MEDS: ACETAMINOPHEN TAB 650MG DOSE (2X325MG) PO (12:17)
[2018-04-16] MEDS: NICOTINE 21MG/24HR 1 EA TRANSDERMAL TD (12:18)
[2018-04-16] MEDS ORDERED: tiZANidine 4 MG TAB PO (22:00)
[2018-04-17] MEDS: ESCITALOPRAM OXALATE 10 MG TAB (LEXAPRO) PO (08:06)
[2018-04-17] MEDS: busPIRone 5 MG TAB PO ×3 (08:06→21:58)
[2018-04-17] MEDS: NICOTINE 21MG/24HR 1 EA TRANSDERMAL TD (08:07)
[2018-04-17] MEDS: MIRALAX *UNIT DOSE* 17GM PACKET PO (08:08)
[2018-04-17] MEDS: hydrOXYzine 50 MG TAB PO (12:17)
[2018-04-17] MEDS: MOM 30ML SUSPENSION UDC PO (15:57)
[2018-04-17] MEDS: ACETAMINOPHEN TAB 650MG DOSE (2X325MG) PO (15:57)
[2018-04-18] MEDS: NICOTINE 21MG/24HR 1 EA TRANSDERMAL TD (08:02)
[2018-04-18] MEDS: busPIRone 5 MG TAB PO ×3 (08:02→21:06)
[2018-04-18] MEDS: ESCITALOPRAM OXALATE 10 MG TAB (LEXAPRO) PO (08:03)
[2018-04-18] MEDS: MOM 30ML SUSPENSION UDC PO (08:03)
[2018-04-18] MEDS: MIRALAX *UNIT DOSE* 17GM PACKET PO (08:03)
[2018-04-18] MEDS: hydrOXYzine 50 MG TAB PO (13:01)
[2018-04-18] MEDS: ACETAMINOPHEN TAB 650MG DOSE (2X325MG) PO (13:01)
[2018-04-18] MEDS: PRAZOSIN 1 MG CAP PO (21:06)
[2018-04-19] MEDS: NICOTINE 21MG/24HR 1 EA TRANSDERMAL TD (08:00)
[2018-04-19] MEDS: busPIRone 5 MG TAB PO (08:00)
[2018-04-19] MEDS: ESCITALOPRAM OXALATE 10 MG TAB (LEXAPRO) PO (08:00)
[2018-04-19] MEDS: MIRALAX *UNIT DOSE* 17GM PACKET PO (08:01)
== END 2018-04-19 10:10 | disposition home or self-care (01) | DRG 751 ==
LOC: M ED 16:29 → M ED INP 18:53 → M PSY 19:36
DX: F32.3 Major depressive disorder, single episode, severe with psychotic features (principal); R45.851 Suicidal ideations; F17.210 Nicotine dependence, cigarettes, uncomplicated; F41.9 Anxiety disorder, unspecified; J45.909 Unspecified asthma, uncomplicated; F43.10 Post-traumatic stress disorder, unspecified; M54.2 Cervicalgia; M54.5 Low back pain; M79.7 Fibromyalgia; K59.09 Other constipation; N83.202 Unspecified ovarian cyst, left side; Z88.0 Allergy status to penicillin; Z88.5 Allergy status to narcotic agent; Z88.6 Allergy status to analgesic agent; Z88.1 Allergy status to other antibiotic agents; Z88.2 Allergy status to sulfonamides; Z91.018 Allergy to other foods; Z79.899 Other long term (current) drug therapy

== ENCOUNTER → 2018-05-02 | Outpatient (CLI) | payer OTHER ==
[~2018-05-02] MED LIST changes: -CITA20TA4 PO; -CLON0.5T; -GABA-283 PO; -KLON0.5T PO; +PROHANCE 279.3MG/ML 15ML VIAL (A9576) As Ordered; +PROHANCE 279.3MG/ML 5ML VIAL (A9576) As Ordered; -RISP0.5T3 PO; -TIZA2CAP3 PO; -TRAM50TA2
== END ==
LOC: M RAD 15:45
DX: D35.02 Benign neoplasm of left adrenal gland (principal)
CPT/HCPCS: A9576

== ENCOUNTER 2018-05-15 00:27 | Emergency (ER) | payer OTHER, MEDICAID ==
[2018-05-15] MEDS: BENZONATATE 100 MG CAP PO (03:09)
[2018-05-15] MEDS: ALBUTEROL 90 MCG/ACT 8GM HFA INHALER INH (03:09)
[2018-05-15] MEDS: predniSONE 20 MG TAB PO (03:09)
== END 2018-05-15 03:14 | disposition home or self-care (01) ==
LOC: M ED 00:27
DX: J20.8 Acute bronchitis due to other specified organisms (principal); Z79.899 Other long term (current) drug therapy; F17.210 Nicotine dependence, cigarettes, uncomplicated
CPT/HCPCS: 99284

== ENCOUNTER 2018-07-06 05:28 | Emergency (ER) | payer OTHER, MEDICAID ==
[2018-07-06] MEDS: IPRATROPIUM 0.5MG/ALBUTEROL 2.5MG INH SOL UD 3ML (DUONEB)(J7620) NEB (07:13)
== END 2018-07-06 08:05 | disposition home or self-care (01) ==
LOC: M ED 05:28
DX: J20.9 Acute bronchitis, unspecified (principal); J44.0 Chronic obstructive pulmonary disease with (acute) lower respiratory infection; J45.909 Unspecified asthma, uncomplicated; R56.9 Unspecified convulsions; M79.7 Fibromyalgia; F33.9 Major depressive disorder, recurrent, unspecified; F41.9 Anxiety disorder, unspecified; F43.10 Post-traumatic stress disorder, unspecified; F20.0 Paranoid schizophrenia; Z79.899 Other long term (current) drug therapy; Z88.0 Allergy status to penicillin; Z88.5 Allergy status to narcotic agent; Z88.8 Allergy status to other drugs, medicaments and biological substances; Z91.018 Allergy to other foods
CPT/HCPCS: 71046

== ENCOUNTER 2018-07-19 20:55 | Inpatient (IN) | payer OTHER ==
[~2018-07-19] VITALS: Ht 165.1 cm; Wt 106.6 kg
[~2018-07-19 20:55] MED LIST changes: +ABIL400I IM; +ARIP5TA PO; +BENZ200C70 PO; +BUSP5TA PO; +CHAN1PAK11 PO; +CIPR-249 PO; +CITA20TA4 PO; +CLON0.5T8; +CYCL10TA PO; +DOXE10CA PO; +ESCI10TA2 PO; +ESCI20TA PO; +FLAG500T PO; +GABA-845 PO; +HYDR50TA70 PO; +HYDRO50TAB PO; +KETO10TAB PO; +KLON0.5T PO; +META0.52 PO; +META28.32 PO; +MINI1CAP PO; +MUCI600T37 PO; +NICO21PAT TD; +OXYC1TAB23 PO; +POLY33502 PO; +PRED20TA PO; -PROHANCE 279.3MG/ML 15ML VIAL (A9576) As Ordered; -PROHANCE 279.3MG/ML 5ML VIAL (A9576) As Ordered; +RISP0.5T3 PO; +SERO50TA PO; +TESS100C PO; +TIZA2CAP PO; +TIZA4CAP PO; +TRAM50TA2; +TRAZO50TA PO; +VENTAER INH; +ZOFR4TAB14 PO
[2018-07-19 22:18] LABS: HEMATOCRIT 40.4 % (36.0-47.0); HEMOGLOBIN 14.4 g/dl (12.0-15.5); MEAN CORPUSCULAR HEMOGLOBIN 30.8 pg (27.0-33.0); MEAN CORPUSCULAR HGB CONC 35.6 g/dl (32.0-36.5); MEAN CORPUSCULAR VOLUME 86.3 fl (80.0-96.0); PLATELET COUNT, AUTOMATED 174 10^3/uL (150-450); RED BLOOD COUNT 4.68 10^6/uL (4.00-5.40); WHITE BLOOD COUNT 6.7 10^3/uL (4.0-10.0)
[2018-07-19 22:35] LABS: HCG, SERUM QUALITATIVE NEGATIVE (NEGATIVE)
[2018-07-19 22:37] LABS: ACETAMINOPHEN LEVEL < 2.0 UG/ML (10.0-30.0); ALBUMIN 3.7 GM/DL (3.2-5.2); ALT/SGPT 17 U/L (12-78); BILIRUBIN,DIRECT < 0.1 MG/DL (0.0-0.2); BILIRUBIN,TOTAL 0.4 MG/DL (0.2-1.0); BLOOD UREA NITROGEN 8 MG/DL (7-18); CALCIUM LEVEL 8.1 MG/DL (8.5-10.1); CARBON DIOXIDE LEVEL 27 MEQ/L (21-32); CHLORIDE LEVEL 107 MEQ/L (98-107); CREATININE FOR GFR 0.86 MG/DL (0.55-1.30); ETHYL ALCOHOL (ETHANOL) < 0.003 % (0.000-0.010); GLOMERULAR FILTRATION RATE > 60.0 (>60); GLUCOSE, FASTING 94 MG/DL (70-100); POTASSIUM SERUM 4.4 MEQ/L (3.5-5.1); SALICYLATE LEVEL 2.8 MG/DL (5.0-30.0); SODIUM LEVEL 139 MEQ/L (136-145); TOTAL PROTEIN 6.3 GM/DL (6.4-8.2)
[2018-07-19 22:41] LABS: AMPHETAMINES LEVEL URINE NEGATIVE (NEGATIVE); BARBITURATES URINE NEGATIVE (NEGATIVE); BENZODIAZEPINES URINE NEGATIVE (NEGATIVE); CANNABINOIDS URINE POSITIVE (NEGATIVE); COCAINE METABOLITE URINE NEGATIVE (NEGATIVE); METHADONE URINE NEGATIVE (NEGATIVE); OPIATES URINE NEGATIVE (NEGATIVE); PHENCYCLIDINE URINE NEGATIVE (NEGATIVE)
[2018-07-19] MEDS ORDERED: VENTAER INH (23:13)
[2018-07-19] MEDS ORDERED: PHEN15CA PO (23:13)
[2018-07-19] MEDS ORDERED: SERO50TA PO (23:13)
[2018-07-19] MEDS ORDERED: TIZA-208 PO (23:13)
[2018-07-19] MEDS ORDERED: ESCI10TA2 PO (23:13)
[2018-07-19] MEDS ORDERED: BUSP10TA PO (23:13)
[2018-07-19] MEDS ORDERED: PRAZ2CAP PO (23:13)
[2018-07-19] MEDS ORDERED: MAALOX 30 ML SUSP *UDC PO PRN (23:15)
[2018-07-20 00:16] VITALS: BP 134/85
[2018-07-20 06:33] VITALS: BP 114/57
[2018-07-20] MEDS: busPIRone 10 MG TAB PO SCH ×3 (12:06→21:09)
[2018-07-20] MEDS ORDERED: NICOTINE 21MG/24HR 1 EA TRANSDERMAL TD ONE (13:00)
[2018-07-20] MEDS: OLANZapine ORAL DISINTEGRATING TAB 5MG PO PRN (15:20)
[2018-07-20 18:17] VITALS: BP 118/66
[2018-07-20] MEDS: PRAZOSIN 1 MG CAP PO SCH (21:09)
[2018-07-20] MEDS: PALIPERIDONE 3 MG ER TAB (INVEGA) PO SCH (21:09)
[2018-07-21 06:52] VITALS: BP 106/54
[2018-07-21] MEDS: busPIRone 10 MG TAB PO SCH ×3 (09:13→19:59)
[2018-07-21] MEDS: NICOTINE 21MG/24HR 1 EA TRANSDERMAL TD SCH (09:13)
--- NOTE | 2018-07-21 10:26 | HPEPDOC ---
[facility] Medical History & Physical Date of Admission Jul 20, 2018 History and Physical PCP: Merissa MESA ATTENDING: Dr. Thelma Flaherty HPI: 38yoF admitted to [facility] for schizophrenia, being medically examined today. Patient denies any recent medical issues. Patient reports no dysuria, hematuria, urgency, abdominal pain, fevers or chills. Denies any weakness, fatigue, LUTZ, CP, SOB, cough, palpitations, N/V/D or changes in bowel habits. PMHx: Anxiety Depression Asthma Paranoid schizophrenia PTSD Chronic neck pain/chronic low back pain/degenerative disc disease Fibromyalgia Ovarian cyst Chronic constipation PSHX: Denies SOCHX: Resides in: [facility]. Marital Status: Kids: 2 Employment: Unemployed Tobacco use: One pack per day ETOH: Denies Illicit Drugs: States he does not use any substances and 11 years, previous history of cocaine IV Drug Use: Denies Tattoos done unprofessionally: Denies FAMHX: Mother: Alive, diabetes, hypertension, heart disease Father: Unknown Siblings: 6 sisters, 2 brothers Alive, unknown Children: Alive, well Unexpected deaths due to medical reasons: None. ROS: As noted in HPI, otherwise 11pt ROS of systems reviewed and remarkable only for LMP unknown. PE: GEN: 38 yo F, appears stated age. Appears unkept. No acute distress. Alert and oriented x 3. Avoids eye contact, provide short 1-2 word answers. HEENT: Normocephalic, atraumatic. Pupils are equal, round, and reactive to light. Extraocular movements are intact. No nystagmus appreciated. Sclera are nonicteric. Conjunctiva without injection. Nose midline. Nasal turbinates without bogginess. EACs both patent BL. TMs both visualized and gandhi with good cone of light, no bulging or erythema. No facial asymmetry. Moist mucous membranes. Edentulous. Pharynx pink and moist, no cobblestoning. Neck supple, trachea midline. No lymphadenopathy or thyromegaly appreciated. CHEST: Regular rate and rhythm, +S1, +S2 LUNGS: Clear to auscultation bilaterally. No wheezes, rales, or rhonchi. Breathing appears symmetric and easy. Patient is speaking in full sentences. No accessory muscle use. ABD: Round, soft, non-tender, non-distended. +Bowel sounds throughout. No rebound or guarding. No costovertebral angle tenderness. EXT: Pulses 2+ bilaterally dorsalis pedis and radial. No lower extremity edema appreciated. SKIN: [place], dry, warm. Capillary refill <2sec. no rashes noted. NEURO: Alert and oriented x 3. Cranial nerves III-XII are intact. No focal deficits appreciated. EKG: SINUS RHYTHM STTW ABN NO PRIOR Electronically Signed On 01-07-2018 17:50:13 EDT by Georgette Tadeo A&P: 38yoF admitted to [facility] for schizophrenia. 1. Psych. Plan per Psychiatry. EKG on file. 2. Nicotine dependence. Patch available. 3. Follow up with PCP on discharge. 4. Fibromyalgia/chronic pain. Tylenol 650 mg every 6 hours as needed. 5. Asthma. Continue albuterol 2 puffs every 4 hours as needed. 6. Obesity. PMI noted to be 41.5. Complicates care. Blood sugar noted within normal limits on admission. TSH noted within normal limits. 7. Staff member Keily PANTOJA present throughout exam. Vital Signs Vital Signs Date Time Temp Pulse Resp B/P (MAP) Pulse Ox O2 Delivery O2 Flow Rate FiO2 07/21/18 06:52 97.6 78 14 106/54 (71) Room Air 07/19/18 20:56 96 Laboratory Data Labs 24H Item Value Date Time White Blood Count 6.7 10^3/uL 07/19/182201 Red Blood Count 4.68 10^6/uL 07/19/182201 Hemoglobin 14.4 g/dl 07/19/182201 Hematocrit 40.4 % 07/19/182201 Mean Corpuscular Volume 86.3 fl 07/19/182201 Mean Corpuscular Hemoglobin 30.8 pg 07/19/182201 Mean Corpuscular Hemoglobin Concent 35.6 g/dl 07/19/182201 Red Cell Distribution Width 12.5 % 07/19/182201 Platelet Count 174 10^3/uL 07/19/182201 Sodium Level 139 MEQ/L 07/19/182201 Potassium Level 4.4 MEQ/L 07/19/182201 Chloride Level 107 MEQ/L 07/19/182201 Carbon Dioxide Level 27 MEQ/L 12/25/18 2202 Anion Gap 5 MEQ/L L 07/19/182201 Blood Urea Nitrogen 8 MG/DL 07/19/182201 Creatinine 0.86 MG/DL 07/19/182201 Glomerular Filtration Rate > 60.0 07/19/182201 Fasting Glucose 94 MG/DL 07/19/182201 Calcium Level 8.1 MG/DL L 07/19/182201 Total Bilirubin 0.4 MG/DL 07/19/182201 Direct Bilirubin < 0.1 MG/DL 07/19/182201 Aspartate Amino Transf (AST/SGOT) 9 U/L 07/19/182201 Alanine Aminotransferase (ALT/SGPT) 17 U/L 07/19/182201 Alkaline Phosphatase 60 U/L 07/19/182201 Total Protein 6.3 GM/DL L 07/19/182201 Albumin 3.7 GM/DL 07/19/182201 Albumin/Globulin Ratio 1.42 07/19/182201 Thyroid Stimulating Hormone (TSH) 1.690 uIU/ML 07/19/182201 Human Chorionic Gonadotropin, Qual NEGATIVE 07/19/182201 Salicylates Level 2.8 MG/DL L 07/19/182201 Urine Opiates Screen NEGATIVE 07/19/182201 Urine Methadone Screen NEGATIVE 07/19/182201 Acetaminophen Level < 2.0 UG/ML L 07/19/182201 Urine Barbiturates Screen NEGATIVE 07/19/182201 Urine Phencyclidine Screen NEGATIVE 07/19/182201 Urine Amphetamines Screen NEGATIVE 07/19/182201 Urine Benzodiazepines Screen NEGATIVE 07/19/182201 Urine Cocaine Metabolite Screen NEGATIVE 07/19/182201 Urine Cannabinoids Screen POSITIVE H 07/19/182201 Ethyl Alcohol Level < 0.003 % 07/19/182201 Home Medications Scheduled (Phentermine HCl) 15 Mg Cap, 15 MG PO DAILY Buspirone HCl (Buspirone HCl) 10 Mg Tab, 10 MG PO TID Escitalopram Oxalate (Escitalopram Oxalate) 10 Mg Tab, 15 MG PO DAILY Prazosin Hcl (Prazosin HCl) 2 Mg Cap, 2 MG PO QHS Quetiapine Fumerate (Seroquel) 50 Mg Tab, 50 MG PO QHS Scheduled PRN Albuterol Sulfate (Ventolin Hfa) 108 Mcg/Act Aer, 2 PUFFS INH Q4H PRN for SHORTNESS OF BREATH Tizanidine Hydrochloride (Tizanidine Hydrochloride) 4 Mg Tab, 8 MG PO TID PRN for MUSCLE SPASMS Allergies Coded Allergies: PICKLES (Verified Allergy, Severe, anaphylaxis, 04/15/18) Amoxicillin (Verified Allergy, Intermediate, hives, 04/15/18) Ibuprofen (Verified Allergy, Intermediate, hives, 04/15/18) Penicillins (Verified Allergy, Intermediate, SWELLING/HIVES, 04/15/18) Penicillins Cross Reactors (Verified Allergy, Intermediate, SWELLING/HIVES, 04/15/18) Phenazopyridine (Verified Allergy, Intermediate, swelling, 04/15/18) Sulfamethoxazole w/Trimethoprim (Verified Allergy, Intermediate, swelling, 04/15/18) Acetaminophen (Verified Allergy, Unknown, 07/06/18) Pseudoephedrine (Verified Allergy, Unknown, doesn't know, 04/15/18) Hydrocodone (Verified Adverse Reaction, Mild, vomiting, 04/15/18) Natalie Kwon Jul 21, 2018 10:26
[2018-07-21] MEDS ORDERED: ALBUTEROL 90 MCG/ACT 8GM HFA INHALER INH PRN (10:30)
[2018-07-21] MEDS: OLANZapine ORAL DISINTEGRATING TAB 5MG PO PRN ×2 (11:24→20:00)
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
[2018-07-21 18:00] VITALS: BP 98/52
[2018-07-21] MEDS: tiZANidine 4 MG TAB PO PRN (19:58)
[2018-07-21] MEDS: PALIPERIDONE 3 MG ER TAB (INVEGA) PO SCH (19:59)
[2018-07-21] MEDS: PRAZOSIN 1 MG CAP PO SCH (19:59)
[2018-07-22 06:28] VITALS: BP 96/49
[2018-07-22] MEDS: tiZANidine 4 MG TAB PO PRN ×2 (08:17→18:06)
[2018-07-22] MEDS: busPIRone 10 MG TAB PO SCH ×3 (08:17→20:29)
[2018-07-22] MEDS: NICOTINE 21MG/24HR 1 EA TRANSDERMAL TD SCH (08:17)
--- NOTE | 2018-07-22 09:47 | MHIPN ---
DATE: 07/21/2018 SUBJECTIVE: "I am doing fine. I am not depressed". OBJECTIVE: She is a 38-year-old female who has a history of schizoaffective disorder, became noncompliant with her medication and slowly started getting depressed and came to the hospital for medications. Initially, patient was on Abilify Maintena. Her medication was changed to Risperidone Consta, which she became noncompliant with and we are in the process of placing her on Invega Sustenna. The patient currently is on oral Invega type medication. After a couple of days, I will place her on injection. She has been improving. MENTAL STATUS EXAMINATION: Casually dressed with good personal hygiene. Cooperative. Made good eye contact. Psychomotor activity is normal. Speech rate, rhythm and volume are good. Mood is mildly depressed. Affect is appropriate for mood. Thought process: Linear, goal directed. Though content: Denied any suicidal or homicidal ideas. Denied any delusions. Insight and judgment are fair. Cognition and memory intact. VITAL SIGNS: Temperature 97.6, pulse 78, respiration 14, blood pressure 106/54. REVIEW OF SYSTEMS: Denies chest pain, palpitation. Denied abdominal pain, dysuria. Denied cough or shortness of breath. Denied tingling, numbness, dizziness and her gait is normal. LABS: CBC, CMP within normal limits. HCG is negative. Toxicology was positive for cannabis. ASSESSMENT: Schizoaffective disorder. PLAN: The plan is to continue current medication and consider placing her on Invega Sustenna. Continue individual and group therapy. The coordination of care was done with nursing staff and social service. Estimated length of stay 2-3 days.
[2018-07-22] MEDS ORDERED: PALIPERIDONE PALMITATE 234 MG/1.5 ML INJ (INVEGA SUSTENNA)(J2426) IM ONE (13:00)
[2018-07-22] MEDS: guaiFENesin DM LIQ 10ML UD PO PRN ×2 (13:01→20:31)
[2018-07-22] MEDS: OLANZapine ORAL DISINTEGRATING TAB 5MG PO PRN (14:35)
[2018-07-22 18:00] VITALS: BP 129/77
[2018-07-22] MEDS: PRAZOSIN 1 MG CAP PO SCH (20:30)
[2018-07-22] MEDS: QUEtiapine FUMARATE 50 MG TAB PO PRN (21:46)
[2018-07-22] MEDS: MOM 30ML SUSPENSION UDC PO PRN (23:02)
[2018-07-23 06:33] VITALS: BP 110/55
[2018-07-23] MEDS: busPIRone 10 MG TAB PO SCH ×3 (09:15→20:13)
[2018-07-23] MEDS: NICOTINE 21MG/24HR 1 EA TRANSDERMAL TD SCH (09:15)
[2018-07-23] MEDS: tiZANidine 4 MG TAB PO PRN ×2 (09:29→20:12)
--- NOTE | 2018-07-23 09:31 | MHIPN ---
DATE: 07/22/2018 SUBJECTIVE: "I am doing fine, I want to go home." OBJECTIVE: She is a 38-year-old female who has a history of schizoaffective disorder, became noncompliant with her medication and slowly started getting depressed. Came to the hospital with suicidal thoughts, initially the patient was on Abilify Maintena. Her medication was changed to Risperdal Consta, which she became noncompliant with. Our plan is to place her on Invega Sustenna. Currently, she is on oral Invega. MENTAL STATUS EXAMINATION: She is dressed in hospital clothes, cooperative. Made good eye contact. Psychomotor activity is mildly retarded. Speech rate, rhythm and volume are good. Mood is mildly depressed. Affect is appropriate to the mood. Thought process is linear and goal directed. Thought conent: Denied any suicidal or homicidal ideas. Denies any delusions. Insight and judgment are fair. Cognition: Alert, oriented to time, place and person. Memory is intact. VITAL SIGNS: Temperature 98, pulse 67, respirations 16, blood pressure 96/49. CURRENT MEDICATIONS: - prazosin 2 mg at night - buspirone 10 mg three times a day - paliperidone 3 mg at night REVIEW OF SYSTEMS: Denied chest pain, palpitations. Denied abdominal pain. Denied any dysuria. Denied cough or shortness of breath. Denied tingling, numbness and dizziness. DIAGNOSIS: 1. Schizoaffective disorder, bipolar type. PLAN: Discontinue oral Invega and place her on Invega Sustenna 324 mg intramuscularly today and after first dose she will get second dose of Invega and can be discharged them. Continue individual and group therapy.
[2018-07-23] MEDS: guaiFENesin DM LIQ 10ML UD PO PRN ×2 (13:17→20:12)
--- NOTE | 2018-07-23 16:38 | MHIPN ---
DATE: 07/23/2018 SUBJECTIVE: "I'm doing fine. I don't have any hallucinations. I have no side effects from the medication." OBJECTIVE: She is a 38-year-old female who has a history of schizoaffective disorder. Became noncompliant with her medication. Slowly started getting depressed and came to the hospital for medications. Initially patient was on Abilify Maintena, which was changed to Risperdal Consta. She became noncompliant, as for Thanksgiving she was out of town. Currently patient has been placed on Invega Sustenna with no side effects of the medication. MENTAL STATUS EXAMINATION: Casually dressed with good personal hygiene, cooperative. Made good eye contact. Psychomotor activity is normal. Speech rate, rhythm, volume are good. Mood is mildly depressed. Affect is appropriate for the mood. Thought process linear, goal directed. Thought content: Denied any suicidal or homicidal ideas. Denied any delusions. Insight and judgment are fair. Cognition and memory are intact. VITAL SIGNS: Temperature 97.9, pulse is 66, respiratory rate is 16, blood pressure is 110/55. REVIEW OF SYSTEMS: Denied abdominal pain, dysuria. Denied shortness of breath or cough. Denied chest pain or palpitations. Denied tingling, numbness, dizziness. Her gait is normal. LABORATORY DATA: CBC, CMP within normal limits. HCG is negative. Toxicology was positive for cannabis. ASSESSMENT: Schizoaffective disorder. PLAN: Continue current medications. She will get her Invega Sustenna, the followup injection, on July 26. Continue individual and group therapy.
[2018-07-23 18:00] VITALS: BP 133/78
[2018-07-23] MEDS: QUEtiapine FUMARATE 50 MG TAB PO PRN (20:13)
[2018-07-23] MEDS: PRAZOSIN 1 MG CAP PO SCH (20:13)
[2018-07-24 06:36] VITALS: BP 145/65
[2018-07-24] MEDS: busPIRone 10 MG TAB PO SCH ×3 (08:15→20:11)
[2018-07-24] MEDS: NICOTINE 21MG/24HR 1 EA TRANSDERMAL TD SCH (08:15)
[2018-07-24] MEDS: guaiFENesin DM LIQ 10ML UD PO PRN (10:56)
[2018-07-24] MEDS: MOM 30ML SUSPENSION UDC PO PRN (17:13)
--- NOTE | 2018-07-24 17:21 | MHIPN ---
DATE: 07/24/2018 SUBJECTIVE: "I am doing fine, I do not hear any voices. Waiting for Wednesday to get my second injection." OBJECTIVE: She is a 38-year-old female who has a history of schizoaffective disorder became noncompliant with her medication. She slowly started getting depressed and had auditory hallucinations. The patient had her first dose of Invega Sustenna on Wednesday. She reports that she had no side effects from the medication. MENTAL STATUS EXAMINATION: Casually dressed with good personal hygiene. Cooperative. Made good eye contact. Psychomotor activity is normal. Speech rate, rhythm and volume are good. Mood is euthymic. Affect is appropriate to the mood. Thought process is linear, goal directed. Thought content: Denied any suicidal or homicidal ideas. Denied any delusions. Denied any auditory or visual hallucinations. Her insight and judgment are good. Cognition and memory are intact. VITAL SIGNS: Temperature 97.5, pulse is 68, respiratory rate is 14, blood pressure is 145/65. REVIEW OF SYSTEMS: Denied chest pain, palpitations. Denied abdominal pain, dysuria. Denied cough or shortness of breath. Denied tingling, numbness, dizziness. Gait is normal. LABORATORIES: Complete blood count (CBC) and CMP within normal limits. Toxicology is negative. DIAGNOSIS: Schizoaffective disorder, bipolar type. PLAN: Continue current medications. She will get her Invega Sustenna second injection on 07/26/2018.
[2018-07-24 18:00] VITALS: BP 126/71
[2018-07-24] MEDS: QUEtiapine FUMARATE 50 MG TAB PO PRN (20:11)
[2018-07-24] MEDS: tiZANidine 4 MG TAB PO PRN (20:11)
[2018-07-24] MEDS: PRAZOSIN 1 MG CAP PO SCH (20:11)
[2018-07-24] MEDS: OLANZapine ORAL DISINTEGRATING TAB 5MG PO PRN (20:12)
[2018-07-24] MEDS: ANUSOL HC 25MG SUPP PR SCH (20:54)
[2018-07-25 06:18] VITALS: BP 105/55
[2018-07-25] MEDS: busPIRone 10 MG TAB PO SCH ×3 (08:17→20:07)
[2018-07-25] MEDS: OLANZapine ORAL DISINTEGRATING TAB 5MG PO PRN (08:17)
[2018-07-25] MEDS: NICOTINE 21MG/24HR 1 EA TRANSDERMAL TD SCH (08:17)
[2018-07-25] MEDS: guaiFENesin DM LIQ 10ML UD PO PRN ×2 (08:42→20:07)
[2018-07-25 18:00] VITALS: BP 118/73
[2018-07-25] MEDS: tiZANidine 4 MG TAB PO PRN (18:43)
[2018-07-25] MEDS: QUEtiapine FUMARATE 50 MG TAB PO PRN (19:53)
[2018-07-25 20:07] VITALS: BP 128/82
[2018-07-25] MEDS: PRAZOSIN 1 MG CAP PO SCH (20:07)
[2018-07-25] MEDS: ANUSOL HC 25MG SUPP PR SCH (21:00)
[2018-07-26 06:40] VITALS: BP 99/59
[2018-07-26] MEDS: NICOTINE 21MG/24HR 1 EA TRANSDERMAL TD SCH (08:01)
[2018-07-26] MEDS: busPIRone 10 MG TAB PO SCH (08:01)
--- NOTE | 2018-07-26 08:14 | MHIPN ---
DATE: 07/25/2018 SUBJECTIVE: "I am doing well. I have no suicidal thoughts". OBJECTIVE: She is a 38-year-old female who has history of schizoaffective disorder who became noncompliant with her medication. She became more and more depressed. She came to the hospital for suicidal thoughts. In the hospital, she has been started on Invega and she had her first Invega Sustenna injection on Wednesday. She will have the next injection tomorrow on 07/26/2018. MENTAL STATUS EXAMINATION: She is casually dressed, cooperative, good personal hygiene, made good eye contact. Psychomotor activity is normal. Speech rate, rhythm and volume are good. Mood is euthymic. Affect is appropriate for the mood. Thought process linear and goal directed. Thought content: Denied any suicidal or homicidal ideas. Denied delusions. Insight and judgment are fair. Cognition: Alert, oriented to time, place and person. Memory remote and recent are good. VITAL SIGNS: Temperature 98.6, pulse 61, respiratory rate 14, blood pressure 105/55. DIAGNOSES: Schizophrenia. Post traumatic stress disorder. Cannabis use disorder. Fibromyalgia. Sciatica. Bulging disk of the neck. PLAN: To continue current medications. Consider discharging her tomorrow after observing her for 24 hours. She will have her next Invega injection tomorrow.
[2018-07-26] MEDS ORDERED: INVE156I IM (08:40)
[2018-07-26] MEDS ORDERED: PALIPERIDONE PALMITATE 156 MG/1ML INJ(INVEGA SUSTENNA)(J2426) IM ONE (10:00)
[2018-07-26] MEDS ORDERED: MINI1CAP PO (10:14)
[2018-07-26] MEDS ORDERED: BUSP10TA PO (10:14)
[2018-07-26] MEDS ORDERED: QUET5TAB PO (10:15)
--- NOTE | 2018-07-26 14:45 | MHDS ---
DATE OF ADMISSION: 07/19/2018 DATE OF DISCHARGE: 07/26/2018 DIAGNOSES: 1. Schizophrenia. 2. Posttraumatic stress disorder. 3. Cannabis use disorder. 4. Fibromyalgia. 5. Sciatica. 6. Bulging disc in the neck. IDENTIFYING DATA: She is a 38-year-old female living with her boyfriend, supported by Social Security Disability, was self-referred, as she became symptomatic due to noncompliance with medication. For history of present illness (HPI), past psychiatric history, personal history, family history, substance abuse history, please refer to the initial evaluation. COURSE IN THE HOSPITAL: Patient initially was depressed and she was complaining of auditory hallucinations. She became noncompliant with injection Risperdal Consta. Initially, she was placed on oral Invega and later on it was changed to Invega Sustenna. Patient made gradual recovery. She started attending groups. She was continued with individual, group and milieu therapy. She actively participated in activities. Her self-esteem improved and her isolation decreased. Her mood improved. She related well with the staff. There were no behavioral problems on the unit. There were no side effects from the medication. No current suicidal or homicidal ideas. Patient was stable at the time of discharge. MENTAL STATUS EXAMINATION: Casually dressed in clean hospital clothes and personal hygiene is good. Made good eye contact. Psychomotor activity is normal. Speech rate, rhythm, volume are good. Mood is euthymic. Affect is appropriate for the mood. Thought process linear, goal-directed. Thought content: Denied any suicidal, homicidal ideas. Denied any delusions. Cognition: Alert, oriented to time, place and person. Denied any preoccupation. Her insight and judgment are fair. VITAL SIGNS: Temperature 96.9, pulse 82, respiratory rate 18, blood pressure 99/59. REVIEW OF SYSTEMS: Denied chest pain, palpitations. Denied abdominal pain, dysuria. Denied cough, shortness of breath. Denied tingling, numbness and dizziness. Patient is ambulating on the unit. MEDICATIONS: - prazosin 2 mg at night - She is also given quetiapine 50 mg as needed for sleep, which I have continued, as patient reports she is not able to sleep without it - BuSpar 10 mg three times a day - She will have Invega Sustenna injection 156 mg on 08/24/2018 PLAN: Patient will go home, [facility]
== END 2018-07-26 10:00 | disposition home or self-care (01) | DRG 750 ==
LOC: M ED 20:55 → M ED INP 23:03 → M PSY 07-20 00:10
PROVIDERS: ADMIT Psychiatry & Neurology Psychiatry; ATTEND Psychiatry & Neurology Psychiatry
DX: F20.0 Paranoid schizophrenia (principal); Z68.41 Body mass index [BMI] 40.0-44.9, adult; F43.10 Post-traumatic stress disorder, unspecified; F12.90 Cannabis use, unspecified, uncomplicated; M79.7 Fibromyalgia; F41.9 Anxiety disorder, unspecified; J45.909 Unspecified asthma, uncomplicated; K59.00 Constipation, unspecified; M54.2 Cervicalgia; M54.5 Low back pain; M51.36 Other intervertebral disc degeneration, lumbar region; N83.299 Other ovarian cyst, unspecified side; F17.200 Nicotine dependence, unspecified, uncomplicated; E66.9 Obesity, unspecified

== ENCOUNTER → 2018-09-08 | Outpatient (REF) | payer OTHER ==
[~2018-09-08] MED LIST changes: +BUSP10TA PO; +INVE156I IM; +PHEN15CA PO; +POLY1POW38 PO; -POLY33502 PO; +PRAZ2CAP PO; +QUET5TAB PO; +TIZA-208 PO
[2018-09-08 16:11] LABS: BASO % 0.6 % (0.0-1.0); EOS # 0.1 10^3/uL (0.0-0.50); EOS % 1.5 % (0.0-3.0); HEMATOCRIT 43.1 % (36.0-47.0); HEMOGLOBIN 15.4 g/dl (12.0-15.5); LYMPH # 1.8 10^3/uL (1.5-4.5); LYMPH % 33.2 % (24.0-44.0); MEAN CORPUSCULAR HEMOGLOBIN 30.9 pg (27.0-33.0); MEAN CORPUSCULAR HGB CONC 35.7 g/dl (32.0-36.5); MEAN CORPUSCULAR VOLUME 86.4 fl (80.0-96.0); MONO # 0.4 10^3/uL (0.0-0.8); MONO % 6.5 % (0.0-5.0); NEUTROPHILS # 3.1 10^3/uL (1.8-7.7); NEUTROPHILS % 57.8 % (36.0-66.0); PLATELET COUNT, AUTOMATED 180 10^3/uL (150-450); RED BLOOD COUNT 4.99 10^6/uL (4.00-5.40); WHITE BLOOD COUNT 5.4 10^3/uL (4.0-10.0)
[2018-09-08 16:29] LABS: HEMOGLOBIN A1c 5.4 %
[2018-09-08 16:45] LABS: ALBUMIN 4.1 GM/DL (3.2-5.2); ALT/SGPT 19 U/L (12-78); BILIRUBIN,TOTAL 0.6 MG/DL (0.2-1.0); BLOOD UREA NITROGEN 7 MG/DL (7-18); CALCIUM LEVEL 8.5 MG/DL (8.5-10.1); CARBON DIOXIDE LEVEL 26 MEQ/L (21-32); CHLORIDE LEVEL 105 MEQ/L (98-107); CHOLESTEROL LEVEL 217 MG/DL (<200); CHOLESTEROL RISK RATIO 5.564 (<5); CREATININE FOR GFR 0.78 MG/DL (0.55-1.30); FREE T4 1.13 NG/DL (0.76-1.46); GLOMERULAR FILTRATION RATE > 60.0 (>60); GLUCOSE, FASTING 94 MG/DL (70-100); HDL CHOLESTEROL 39 MG/DL (>40); LDL CHOLESTEROL 152 MG/DL (<100); NON-HDL-C 178 MG/DL; POTASSIUM SERUM 4.3 MEQ/L (3.5-5.1); SODIUM LEVEL 138 MEQ/L (136-145); TRIGLYCERIDES LEVEL 131 MG/DL (<150)
== END ==
LOC: M SFHCPLAZ 14:41
PROVIDERS: ATTEND Physician Assistant Medical
DX: K21.0 Gastro-esophageal reflux disease with esophagitis (principal); E66.9 Obesity, unspecified

== ENCOUNTER → 2018-11-08 | Outpatient (REF) | payer OTHER ==
[~2018-11-08] MED LIST changes: +ARIP1TAB6 PO; -ARIP5TA PO; -CITA20TA4 PO; +CITA20TA6 PO; +OMEP40CA2 PO; -TIZA-208 PO; +TIZA4TAB4 PO
== END ==
LOC: M SFHCPLAZ 09:07
PROVIDERS: ATTEND Physician Assistant Medical
DX: R73.9 Hyperglycemia, unspecified (principal)

== ENCOUNTER 2018-11-18 02:23 | Emergency (ER) | payer OTHER ==
[~2018-11-18] VITALS: Ht 165.1 cm; Wt 113.6 kg
[2018-11-18 02:23] VITALS: BP 122/68
[2018-11-18] MEDS ORDERED: ROBA500T PO (04:19)
[2018-11-18] MEDS ORDERED: PRED20TA PO (04:19)
[2018-11-18] MEDS ORDERED: predniSONE 20 MG TAB PO ONE (04:30)
[2018-11-18] MEDS ORDERED: METHOCARBAMOL 750 MG TAB PO ONE (04:30)
== END 2018-11-18 04:39 | disposition home or self-care (01) ==
LOC: M ED 02:23
DX: M54.5 Low back pain (principal); K21.9 Gastro-esophageal reflux disease without esophagitis; F41.9 Anxiety disorder, unspecified; F32.9 Major depressive disorder, single episode, unspecified; Z72.0 Tobacco use; Z79.899 Other long term (current) drug therapy; Z88.0 Allergy status to penicillin; Z88.6 Allergy status to analgesic agent; Z88.5 Allergy status to narcotic agent; Z88.8 Allergy status to other drugs, medicaments and biological substances; Z91.018 Allergy to other foods

== ENCOUNTER → 2018-11-29 | Outpatient (REF) | payer OTHER ==
[~2018-11-29] MED LIST changes: +ROBA500T PO
[2018-11-29 10:27] LABS: ALBUMIN 3.7 GM/DL (3.2-5.2); ALT/SGPT 23 U/L (12-78); BILIRUBIN,TOTAL 0.4 MG/DL (0.2-1.0); BLOOD UREA NITROGEN 9 MG/DL (7-18); CALCIUM LEVEL 8.3 MG/DL (8.5-10.1); CARBON DIOXIDE LEVEL 28 MEQ/L (21-32); CHLORIDE LEVEL 108 MEQ/L (98-107); CHOLESTEROL LEVEL 217 MG/DL (<200); CREATININE FOR GFR 0.87 MG/DL (0.55-1.30); GLOMERULAR FILTRATION RATE > 60.0 (>60); GLUCOSE, FASTING 106 MG/DL (70-100); HDL CHOLESTEROL 31 MG/DL (>40); LDL CHOLESTEROL 132 MG/DL (<100); NON-HDL-C 186 MG/DL; POTASSIUM SERUM 4.1 MEQ/L (3.5-5.1); SODIUM LEVEL 140 MEQ/L (136-145); TOTAL PROTEIN 7.1 GM/DL (6.4-8.2); TRIGLYCERIDES LEVEL 272 MG/DL (<150)
[2018-11-29 11:11] LABS: HEMOGLOBIN A1c 5.5 %
== END ==
LOC: M SFHCPLAZ 07:58
PROVIDERS: ATTEND Physician Assistant Medical
DX: R73.9 Hyperglycemia, unspecified (principal)

== ENCOUNTER 2019-03-21 15:18 | Emergency (ER) | payer OTHER ==
[~2019-03-21] VITALS: Ht 165.1 cm; Wt 106.4 kg
[~2019-03-21 15:18] MED LIST changes: +HYDR1TAB33 PO; -HYDRO50TAB PO; +TRAZ1TAB10 PO; -TRAZO50TA PO
[2019-03-21] MEDS ORDERED: ARIP1TAB6 PO (15:31)
[2019-03-21] MEDS ORDERED: HYDR-643 (15:31)
[2019-03-21] MEDS ORDERED: METHOCARBAMOL 500 MG TAB PO ONE (17:00)
[2019-03-21 17:03] VITALS: BP 130/78
[2019-03-21] MEDS ORDERED: METH1TAB40 PO (17:13)
== END 2019-03-21 17:19 | disposition home or self-care (01) ==
LOC: M ED 15:18
DX: M62.830 Muscle spasm of back (principal); M54.5 Low back pain; Z91.81 History of falling; J44.9 Chronic obstructive pulmonary disease, unspecified; R51 Headache; R56.9 Unspecified convulsions; F43.10 Post-traumatic stress disorder, unspecified; F41.9 Anxiety disorder, unspecified; F32.9 Major depressive disorder, single episode, unspecified; Z88.0 Allergy status to penicillin; Z88.5 Allergy status to narcotic agent; Z88.6 Allergy status to analgesic agent; Z88.2 Allergy status to sulfonamides; Z91.018 Allergy to other foods; Z79.899 Other long term (current) drug therapy

== ENCOUNTER 2019-04-11 09:49 | Inpatient (IN) | payer MEDICARE, OTHER ==
[~2019-04-11] VITALS: Ht 165.1 cm; Wt 113.6 kg
[~2019-04-11 09:49] MED LIST changes: +HYDR-643; +METH1TAB40 PO
[2019-04-11] MEDS ORDERED: BACL10TA2 PO (10:00)
[2019-04-11] MEDS ORDERED: CLON-412 PO (10:00)
[2019-04-11] MEDS ORDERED: MELO7.5T35 PO (10:00)
[2019-04-11] MEDS ORDERED: MELOXICAM (MOBIC) 7.5 MG TAB PO STA (10:24)
[2019-04-11 10:29] LABS: HEMATOCRIT 40.9 % (36.0-47.0); HEMOGLOBIN 14.4 g/dl (12.0-15.5); MEAN CORPUSCULAR HEMOGLOBIN 31.1 pg (27.0-33.0); MEAN CORPUSCULAR HGB CONC 35.2 g/dl (32.0-36.5); MEAN CORPUSCULAR VOLUME 88.3 fl (80.0-96.0); PLATELET COUNT, AUTOMATED 174 10^3/uL (150-450); RED BLOOD COUNT 4.63 10^6/uL (4.00-5.40); WHITE BLOOD COUNT 5.5 10^3/uL (4.0-10.0)
[2019-04-11] MEDS ORDERED: NICOTINE 21MG/24HR 1 EA TRANSDERMAL TD ONE (10:30)
[2019-04-11] MEDS ORDERED: OMEPRAZOLE 20 MG CAP PO ONE (10:30)
[2019-04-11] MEDS ORDERED: BACLOFEN 10 MG TAB PO ONE (10:30)
[2019-04-11 10:51] LABS: AMPHETAMINES LEVEL URINE NEGATIVE (NEGATIVE); BARBITURATES URINE NEGATIVE (NEGATIVE); BENZODIAZEPINES URINE NEGATIVE (NEGATIVE); CANNABINOIDS URINE NEGATIVE (NEGATIVE); COCAINE METABOLITE URINE NEGATIVE (NEGATIVE); METHADONE URINE NEGATIVE (NEGATIVE); OPIATES URINE NEGATIVE (NEGATIVE); PHENCYCLIDINE URINE NEGATIVE (NEGATIVE)
[2019-04-11 11:00] LABS: ACETAMINOPHEN LEVEL < 2.0 UG/ML (10.0-30.0); ALBUMIN 3.6 GM/DL (3.2-5.2); ALT/SGPT 21 U/L (12-78); BILIRUBIN,DIRECT < 0.1 MG/DL (0.0-0.2); BILIRUBIN,TOTAL 0.4 MG/DL (0.2-1.0); BLOOD UREA NITROGEN 8 MG/DL (7-18); CALCIUM LEVEL 8.7 MG/DL (8.5-10.1); CARBON DIOXIDE LEVEL 24 MEQ/L (21-32); CHLORIDE LEVEL 109 MEQ/L (98-107); CREATININE FOR GFR 0.89 MG/DL (0.55-1.30); ETHYL ALCOHOL (ETHANOL) < 0.003 % (0.000-0.010); GLOMERULAR FILTRATION RATE > 60.0 (>60); GLUCOSE, FASTING 98 MG/DL (70-100); POTASSIUM SERUM 4.5 MEQ/L (3.5-5.1); SALICYLATE LEVEL 4.3 MG/DL (5.0-30.0); SODIUM LEVEL 141 MEQ/L (136-145); TOTAL PROTEIN 6.1 GM/DL (6.4-8.2)
[2019-04-11 11:08] LABS: HCG, SERUM QUALITATIVE NEGATIVE (NEGATIVE)
[2019-04-11] MEDS ORDERED: NYST10CR TOP (14:06)
[2019-04-11] MEDS ORDERED: BENA25CA4 PO (14:06)
[2019-04-11] MEDS ORDERED: LIDO1CRE2 TOP (14:06)
[2019-04-11] MEDS ORDERED: NYSTATIN CREAM 15 GM TOP PRN (15:45)
[2019-04-11] MEDS ORDERED: MAALOX 30 ML SUSP *UDC PO PRN (15:45)
[2019-04-11] MEDS ORDERED: MOM 30ML SUSPENSION UDC PO PRN (15:45)
[2019-04-11 17:22] VITALS: BP 130/84
[2019-04-11] MEDS: BACLOFEN 10 MG TAB PO SCH ×2 (17:29→21:12)
[2019-04-11] MEDS ORDERED: cloNIDine 0.2 MG TAB PO SCH (21:00)
[2019-04-11] MEDS: MELOXICAM (MOBIC) 7.5 MG TAB PO SCH (21:12)
[2019-04-11] MEDS: diphenhydrAMINE 25 MG CAP PO SCH (21:12)
[2019-04-11 21:13] VITALS: BP 134/86
[2019-04-11] MEDS: OMEPRAZOLE 20 MG CAP PO SCH (21:14)
[2019-04-12 06:30] VITALS: BP 106/62
[2019-04-12] MEDS: MELOXICAM (MOBIC) 7.5 MG TAB PO SCH (08:30)
[2019-04-12] MEDS: diphenhydrAMINE 25 MG CAP PO SCH (08:30)
[2019-04-12] MEDS: BACLOFEN 10 MG TAB PO SCH ×2 (08:30→15:06)
[2019-04-12] MEDS: OMEPRAZOLE 20 MG CAP PO SCH (08:31)
[2019-04-12] MEDS ORDERED: NICOTINE 21MG/24HR 1 EA TRANSDERMAL TD SCH (09:00)
--- NOTE | 2019-04-12 09:21 | MHHPEPDOC ---
[facility] History & Physical History and Physical Date of Service: 04/12/2019 Chief Complaint "I don't know why they admitted me." History of Present Illness Patient, a 39-year old woman with a reported history of schizophrenia and PTSD, presents to the emergency room reportedly after calling the crisis line and had noted that she was dealing with grief of a recent loss of her cousin and father. She reportedly had seen one of her friends walk in and had made a joking threat towards her. Subsequently the crisis dragline mechanic referred the patient to the ER and had the patient picked up for evaluation. She was evaluated in the ER where she denied any suicidal or homicidal ideation, by her report. The ER notes that she has had some irritability, moodiness, but she describes she was unclear as to why she was admitted, as she tried to explain the situation was merely ingest. When the patient was met with, she reported that she was doing quite well on her medications and had otherwise had no major problems. She reports that she wishes to leave as she does not feel she has a significant amount of problems to work through and that she has been doing well in her outpatient setting. Review Of Systems Depression: Notes some mild mood irritation with previous episodes of depression, but none currently. Anxiety: Previous episodes of anxiety, but none currently. Nkechi: The patient denies any episodes of euphoria/dysphoria associated with decreased need for sleep, hedonism, talkatively or impulsivity lasting longer than 5 days. Psychotic: Episodes in the past, but denies any current psychotic symptoms. Trauma: Past trauma, but no current active symptoms. Borderline: Did not screen at this juncture. Past Psychiatric History Patient has been admitted last in June 2018 where she was diagnosed with schizophrenia and PTSD. She was started on Invega Sustenna, however she reports that she has been recently changed to Abilify 5 mg, which she notes is effective for her symptoms. She reports that she has been attending her outpatient fairly regularly. She reports having suicide attempts in the past with trying to slit her wrist and going into traffic in the distant past. Allergies Please see below. Family Psychiatric History She reports she has had family members with mental health problems that have received treatment. It was unclear about the exact nature. Reports history of various substance abuse in the family, but no suicides. Social History Patient reports that she was adopted by her aunt and uncle. She does not have continuous contact with them since she left them. She reports that her biological father had recently from a terminal illness. She reports that she lives with her significant other who is employed. She receives SSI first of the month and has an IEP diploma. She currently does not work. She is from a previous and resides in home with her spouse. Has no children. Reports a history of trauma in the past. Denies any ownership of guns. Substance Abuse History Patient reports having a history of cannabis use, but has not been using recently. Denies any illicit drug use or significant alcohol use recently. Reports smoking 5 or more cigarettes a day. Medical History History of a congenital heart murmur and fibromyalgia. Mental Status Examination General: Well dressed with good hygiene Speech: Spontaneous and fluid Thought processes: Linear and logical MSK: Smooth and coordinated gait, no signs of tremors or involuntary orofacial movements Thought content: Future orientated Abstract reasoning, and computation: Intact Description of associations: Intact Description of abnormal or psychotic thoughts: Denies any suicidal or homicidal ideation. Denies any auditory or visual hallucinations. Does not appear to be responding to internal stimuli. Does not appear to be endorsing any bizarre or paranoid ideation. Judgment: fair Insight: fair Orientation: Alert and orientated 3 Cognition: Grossly normal Recent and remote memory: Intact Attention span and concentration: Intact Fund of knowledge: Adequate Mood: "okay" Affect: Euthymic with a full range Diagnoses Mental health evaluation as requested by authority. Assessment and Plan Patient, a 39-year-old woman with a history of reported schizophrenia, presents to [facility]. She reports doing quite well in her mental status. Reports that she is fairly euthymic without signs or symptoms of a major mental illness presenting. She reportedly has been admitted in the past. Her collateral information from her friend indicates that the patient likely had made an off- color joke and subsequently was referred for evaluation and admitted. I don't know of abundance of caution, however observation on our unit suggests that she's not a danger to herself or others as she has frankly denied any suicidal or homicidal ideation and appears to be able to attend to her needs well. She requests discharge and at this time does not meet involuntary criteria in my clinical judgment due to the aforementioned factors. She declines further voluntary admission and will need to be discharged in good melanie. Disposition Same-day discharge. Problem List None. Initial Treatment Plan 1. Patient was admitted on a 9.39 legal status. 2. Complete history was obtained. 3. With patients permission, family will be contacted and database will be expanded. 4. Patients medication regimen will be reviewed and changed accordingly. 5. Patient will be provided with protected environment. 6. Patient will be treated with individual, group, and milieu therapies. 7. Patient will receive supportive psych-education. 8. Discharge planning will commence immediately. 9. Outpatient follow-up treatment will be strongly recommended. 10. The initial treatment plan will focus initially on:restarting home medications Estimated Length Of Stay 1 day. Time Spent 30 minutes. Wednesday Vital Signs Vital Signs Date Time Temp Pulse Resp B/P (MAP) Pulse Ox O2 Delivery O2 Flow Rate FiO2 04/12/19 06:30 98.6 58 12 106/62 (77) 04/11/19 17:22 95 04/11/19 09:49 Room Air Laboratory Data 24H Labs Laboratory Tests 2 04/11/19 10:18: Nucleated Red Blood Cells % (auto) 0.0, Anion Gap 8, Glomerular Filtration Rate > 60.0, Calcium Level 8.7, Aspartate Amino Transf (AST/SGOT) 14, Alanine A minotransferase (ALT/SGPT) 21, Alkaline Phosphatase 67, Total Bilirubin 0.4, Direct Bilirubin < 0.1, Total Protein 6.1L, Albumin 3.6, Albumin/Globulin Ratio 1.44, Thyroid Stimulating Hormone (TSH) 2.320, Human Chorionic Gonadotropin, Qual NEGATIVE, Salicylates Level 4.3L, Urine Amphetamines Screen NEGATIVE, Urine Benzodiazepines Screen NEGATIVE, Urine Opiates Screen NEGATIVE, Urine Methadone Screen NEGATIVE, Acetaminophen Level < 2.0L, Urine Barbiturates Screen NEGATIVE, Urine Phencyclidine Screen NEGATIVE, Urine Cocaine Metabolite Screen NEGATIVE, Urine Cannabinoids Screen NEGATIVE, Ethyl Alcohol Level < 0.003 CBC/BMP Laboratory Tests 04/11/19 10:18 Red Blood Count 4.63, Mean Corpuscular Volume 88.3, Mean Corpuscular Hemoglobin 31.1, Mean Corpuscular Hemoglobin Concent 35.2, Red Cell Distribution Width 12.8 Medications Scheduled Aripiprazole (Aripiprazole) 5 Mg Tablet, 5 MG PO QHS, (Reported) Baclofen (Baclofen) 10 Mg Tablet, 10 MG PO TID, (Reported) Clonidine HCl (Clonidine HCl) 0.1 Mg Tablet, 0.2 MG PO QHS, (Reported) Diphenhydramine HCl (Benadryl) 25 Mg Capsule, 25 MG PO BID, (Reported) Meloxicam (Meloxicam) 7.5 Mg Tablet, 7.5 MG PO BID, (Reported) Nicotine (Nicotine Patch) 21 Mg Patch.td24, 1 PATCH TD DAILY for tobacco Omeprazole (Omeprazole) 40 Mg Cap, 40 MG PO BID, (Reported) Scheduled PRN Lidocaine (Lidocaine) 5 Gm Cream..g., 1 DOSE TOP TID PRN for PAIN, (Reported) APPLY TO RIGHT SHOULDER Nicotine Polacrilex (Nicotine Gum) 2 Mg Gum, 2 MG PO Q2HP PRN for NICOTINE WITHDRAWAL Nystatin (Nystatin) 15 Gm Cream..g., 1 DOSE TOP TID PRN for RASH/ITCHING, (Reported) APPLY TO ABDOMINAL FOLDS Allergies Coded Allergies: PICKLES (Verified Allergy, Unknown, 10/26/18) Penicillins (Verified Allergy, Unknown, 10/26/18) acetaminophen (Verified Allergy, Unknown, 10/26/18) amoxicillin (Verified Allergy, Unknown, 10/26/18) hydrocodone (Verified Allergy, Unknown, 10/26/18) ibuprofen (Verified Allergy, Unknown, 10/26/18) phenazopyridine (Verified Allergy, Unknown, 10/26/18) pseudoephedrine (Verified Allergy, Unknown, 10/26/18) sulfamethoxazole (Verified Allergy, Unknown, 10/26/18) trimethoprim (Verified Allergy, Unknown, 10/26/18) DELTA ALFRED DO Apr 12, 2019 09:21
[2019-04-12] MEDS ORDERED: IPRATROPIUM 0.5MG/ALBUTEROL 2.5MG INH SOL UD 3ML (DUONEB)(J7620) NEB PRN (13:15)
[2019-04-12] MEDS ORDERED: LIDOCAINE 5% OINT 30 GM TOP SCH (13:45)
[2019-04-12] MEDS ORDERED: NYSTATIN OINTMENT 15 GM TOP SCH (13:45)
[2019-04-12] MEDS ORDERED: NICOTINE POLACRILEX 2 MG GUM PO PRN (14:00)
--- NOTE | 2019-04-12 14:38 | HPE ---
DATE OF ADMISSION: 04/11/2019 CHIEF COMPLAINT: Psychotic disorder. HISTORY OF PRESENT ILLNESS: 38-year-old female with history of schizophrenia, anxiety, depression, posttraumatic stress disorder, chronic neck and low back pain, fibromyalgia, ovarian cysts and chronic constipation admitted to inpatient mental health unit for unspecified psychotic disorder to improve her condition. Hospitalist service was called for medical management of her chronic illness. The patient still complains of right shoulder pain for which she uses Lidocaine. She also complains of erythematous pruritic rash underneath her abdominal pannus. She denies any shortness of breath, wheezing with prior history of asthma, chronic obstructive pulmonary disease (COPD). She continues to smoke 5-6 cigarettes daily and is not ready for smoking cessation. She otherwise denies fever or chills, shortness of breath, chest pain, pressure tightness, nausea, vomiting, decreased appetite, changes in weight, upper or lower extremity weakness. No other issues per nursing. PAST MEDICAL HISTORY: Fibromyalgia. Anxiety. Chronic constipation. Ovarian cysts. Depression. Chronic neck, low back pain. Degenerative disc disease. Frozen shoulder on the right. Paranoid schizophrenia. Posttraumatic stress disorder (PTSD). Asthma. Chronic obstructive pulmonary disease (COPD) PAST SURGICAL HISTORY: Denies. ALLERGIES: Pickles, PENICILLIN, ACETAMINOPHEN, AMOXICILLIN, HYDROCODONE, IBUPROFEN, PHENAZOPYRIDINE, PSEUDOEPHEDRINE, SULFAMETHOXAZOLE, TRIMETHOPRIM. HOSPITAL MEDICATIONS: - DuoNeb as needed - Mylanta as needed - Abilify - Baclofen - Clonidine - diphenhydramine - lidocaine ointment - Mobic - Milk of Magnesia - nicotine patch - nystatin ointment - Prilosec SOCIAL HISTORY: Resides in [place]. Previously smoked a pack a day, currently smokes 5 cigarettes a day. Unemployed with two children. No recreational drug use currently but previously used cocaine. FAMILY HISTORY: Mother with diabetes, hypertension, heart disease, alive. REVIEW OF SYSTEMS: 10-point system negative aside from positive findings on history of present illness (HPI). PHYSICAL EXAMINATION: Vital signs: Temperature 98.6, pulse 58, respiratory rate 12, blood pressure 106/62, 95% on room air. Generally, patient is awake, alert, oriented times three answering questions appropriately. Patient has no cervical or thoracic spine tenderness. Able to flex and extend her neck without difficulty. Laterally extended both to the left and right. Patient has no weakness. Motor function is 5/5 bilateral upper extremities. No sensory changes down the arm into the hand. Deep tendon reflexes (DTRs) are intact. Patient does have some point tenderness in the right shoulder above the scapular area. She has limited external rotation. Lungs are clear to auscultation. No wheezing, rales or rhonchi. Heart: S1, S2, sinus rhythm. Abdomen is obese, soft, nontender, nondistended. Positive bowel sounds. No hepatosplenomegaly. Patient does have erythematous scaly well demarcated nonindurated lesions underneath the abdominal pannus. Extremities: No cyanosis, clubbing or pitting edema. LABORATORY DATA: 04/11/2019: White count 5.5, hemoglobin 14, hematocrit 40, platelet count 174. Sodium 141, potassium 4.5, chloride 109, bicarbonate 24, BUN 8, creatinine 0.89, glucose 98, calcium 8.7. Total bilirubin 0.4, direct bilirubin less than 0.1, AST 14, ALT 21, alkaline phosphatase 67, albumin 3.6. TSH 2.32, hCG is negative. Tox screen 4.3 salicylate, less than 2 acetaminophen, ethyl alcohol less than 0.003. Otherwise negative. IMAGING STUDIES: None. ASSESSMENT/PLAN: This is a 39-year-old female with anxiety, depression, asthma, paranoid schizophrenia, PTSD, asthma, COPD, chronic neck and back pain with degenerative disc disease, right frozen shoulder, fibromyalgia, ovarian cysts and chronic constipation admitted to the inpatient mental health unit. Current issues are as follows: 1. Abdominal fold fungal infection: Patient will be given Nystatin for 10 days. 2. Chronic obstructive pulmonary disease (COPD)/asthma: No wheezing on examination. As needed DuoNebs. 3. Right frozen shoulder: As needed lidocaine. Physical therapy, occupational therapy as outpatient for 6-8 weeks. If no significant improvement may improve from steroid injections and orthopaedic followup. 4. Anxiety/depression, paranoid schizophrenia, posttraumatic stress disorder deferred to patient psychiatrist for adjustment of medications . 5. Chronic constipation: Currently on a bowel regimen. 6. Active tobacco use: Tobacco cessation and counseling have been provided, about 10 minutes. Patent does not want to quit cigarettes at this time. She is currently on a nicotine patch with nicotine gum as needed in between. 7. Reflux disease: On Prilosec 40 mg twice a day. 8. Deep venous thrombosis (DVT) prophylaxis: Encouraged ambulation. Patient [facility] staff was present during the entire interview and physical examination. JUNIOR
[2019-04-12] MEDS ORDERED: NICO2GUM PO (15:17)
[2019-04-12] MEDS ORDERED: NICO21PAT TD (15:17)
[2019-04-12 16:38] VITALS: BP 138/71
[2019-04-12 16:42] VITALS: BP 126/78
--- NOTE | 2019-04-24 08:22 | MHDSPDOC ---
[facility] Discharge Summary Discharge Summary DATE OF ADMISSION: Apr 11, 2019 at 15:38 DATE OF DISCHARGE: Apr 12, 2019 at 17:45 Please see H/P for summary of assessment and clinical course for admission, same day d/c Medications Scheduled Aripiprazole (Aripiprazole) 5 Mg Tablet, 5 MG PO QHS, (Reported) Baclofen (Baclofen) 10 Mg Tablet, 10 MG PO TID, (Reported) Clonidine HCl (Clonidine HCl) 0.1 Mg Tablet, 0.2 MG PO QHS, (Reported) Diphenhydramine HCl (Benadryl) 25 Mg Capsule, 25 MG PO BID, (Reported) Meloxicam (Meloxicam) 7.5 Mg Tablet, 7.5 MG PO BID, (Reported) Nicotine (Nicotine Patch) 21 Mg Patch.td24, 1 PATCH TD DAILY for tobacco for 30 Days, #30 Omeprazole (Omeprazole) 40 Mg Cap, 40 MG PO BID, (Reported) Scheduled PRN Lidocaine (Lidocaine) 5 Gm Cream..g., 1 DOSE TOP TID PRN for PAIN, (Reported) APPLY TO RIGHT SHOULDER Nicotine Polacrilex (Nicotine Gum) 2 Mg Gum, 2 MG PO Q2HP PRN for NICOTINE WITHDRAWAL for 30 Days, #1 Nystatin (Nystatin) 15 Gm Cream..g., 1 DOSE TOP TID PRN for RASH/ITCHING, (Reported) APPLY TO ABDOMINAL FOLDS Allergies Coded Allergies: PICKLES (Verified Allergy, Unknown, 10/26/18) Penicillins (Verified Allergy, Unknown, 10/26/18) acetaminophen (Verified Allergy, Unknown, 10/26/18) amoxicillin (Verified Allergy, Unknown, 10/26/18) hydrocodone (Verified Allergy, Unknown, 10/26/18) ibuprofen (Verified Allergy, Unknown, 10/26/18) phenazopyridine (Verified Allergy, Unknown, 10/26/18) pseudoephedrine (Verified Allergy, Unknown, 10/26/18) sulfamethoxazole (Verified Allergy, Unknown, 10/26/18) trimethoprim (Verified Allergy, Unknown, 10/26/18) DELTA ALFRED DO Apr 24, 2019 08:22
== END 2019-04-12 17:45 | disposition home or self-care (01) | DRG 951 ==
LOC: M ED 09:49 → M ED INP 15:38 → M PSY 16:49
PROVIDERS: ADMIT Psychiatry & Neurology Addiction Medicine; ATTEND Psychiatry & Neurology Addiction Medicine
DX: Z04.6 Encounter for general psychiatric examination, requested by authority (principal); F20.0 Paranoid schizophrenia; F43.10 Post-traumatic stress disorder, unspecified; R01.1 Cardiac murmur, unspecified; F17.210 Nicotine dependence, cigarettes, uncomplicated; M79.7 Fibromyalgia; F41.9 Anxiety disorder, unspecified; K59.09 Other constipation; N83.209 Unspecified ovarian cyst, unspecified side; F32.9 Major depressive disorder, single episode, unspecified; M54.2 Cervicalgia; M54.5 Low back pain; M75.01 Adhesive capsulitis of right shoulder; J45.909 Unspecified asthma, uncomplicated; J44.9 Chronic obstructive pulmonary disease, unspecified; Z79.899 Other long term (current) drug therapy; Z88.0 Allergy status to penicillin; Z88.8 Allergy status to other drugs, medicaments and biological substances; K21.9 Gastro-esophageal reflux disease without esophagitis; Z91.018 Allergy to other foods; B37.2 Candidiasis of skin and nail

== ENCOUNTER 2019-05-05 23:18 | Emergency (ER) | payer MEDICARE, OTHER ==
[~2019-05-05] VITALS: Ht 165.1 cm; Wt 106.8 kg
[2019-05-05 23:18] VITALS: BP 117/78
[~2019-05-05 23:18] MED LIST changes: +BACL10TA2 PO; +BENA25CA4 PO; +CLON-412 PO; +LIDO1CRE2 TOP; +MELO7.5T35 PO; +NICO2GUM PO; +NYST10CR TOP
[2019-05-05] MEDS ORDERED: ARIP1TAB PO (23:40)
[2019-05-05] MEDS ORDERED: CLONI1TA PO (23:40)
[2019-05-06] MEDS ORDERED: PRED20TA PO (00:34)
[2019-05-06] MEDS ORDERED: predniSONE 20 MG TAB PO ONE (00:45)
== END 2019-05-06 00:44 | disposition home or self-care (01) ==
LOC: M ED 23:18
DX: M25.511 Pain in right shoulder (principal); F43.10 Post-traumatic stress disorder, unspecified; F20.9 Schizophrenia, unspecified; F41.9 Anxiety disorder, unspecified; F32.9 Major depressive disorder, single episode, unspecified; F60.0 Paranoid personality disorder; R51 Headache; M79.7 Fibromyalgia; M54.9 Dorsalgia, unspecified; K58.9 Irritable bowel syndrome, unspecified; K21.9 Gastro-esophageal reflux disease without esophagitis; J44.9 Chronic obstructive pulmonary disease, unspecified; Z85.41 Personal history of malignant neoplasm of cervix uteri; R01.1 Cardiac murmur, unspecified; Z79.899 Other long term (current) drug therapy; Z91.018 Allergy to other foods; Z88.0 Allergy status to penicillin; Z88.6 Allergy status to analgesic agent; Z88.5 Allergy status to narcotic agent; Z88.8 Allergy status to other drugs, medicaments and biological substances

== ENCOUNTER 2019-06-20 19:35 | Observation (INO) | payer OTHER ==
[~2019-06-20] VITALS: Ht 165.1 cm; Wt 110.0 kg
[~2019-06-20 19:35] MED LIST changes: +ARIP1TAB PO; +CLON0.5T2; -CLON0.5T8; +CLONI1TA PO; -OMEP40CA2 PO; +OMEP40CA97 PO
[2019-06-20] MEDS ORDERED: LORA-674 PO (19:45)
[2019-06-20] MEDS ORDERED: LARI1TAB PO (19:45)
[2019-06-20] MEDS ORDERED: DULO1CAP4 PO (19:45)
[2019-06-20] MEDS ORDERED: ONDANSETRON 4MG/2ML VIAL (J2405) IV ONE (21:15)
--- NOTE | 2019-06-20 21:17 | REPVR ---
PROCEDURE INFORMATION: Exam: US Duplex Left Lower Extremity Veins, Limited Exam date and time: 06/20/2019 8:51 PM Age: 39 years old Clinical history: Pain; Leg, upper and leg, lower; Left; Additional info: Left leg pain, dvt R/O TECHNIQUE: Imaging protocol: Real-time Duplex ultrasound of the Left Lower Extremity with 2-D gandhi scale, color Doppler flow and spectral waveform analysis with image documentation. Limited exam focused on the left lower extremity veins. COMPARISON: No relevant prior studies available. FINDINGS: Left deep veins: Heterogeneously hypoechoic, nonocclusive thrombus in the popliteal vein. The common femoral, proximal profunda femoral and femoral veins are patent without thrombus. Left superficial veins: Unremarkable. Saphenofemoral junction is patent without thrombus. Soft tissues: Unremarkable. IMPRESSION: Heterogeneously hypoechoic, nonocclusive thrombus in the popliteal vein. Electronically signed by: Sergio Graham On 06/20/2019 21:17:09 PM
[2019-06-20] MEDS: fentaNYL 100 MCG/2 ML INJECTION (J3010) IV ONE ×2 (21:43→21:52)
[2019-06-20 22:21] LABS: BASO % 0.3 % (0.0-1.0); EOS # 0.1 10^3/uL (0.0-0.5); EOS % 0.6 % (0.0-3.0); HEMATOCRIT 40.6 % (36.0-47.0); LYMPH # 1.9 10^3/uL (1.5-5.0); LYMPH % 19.3 % (24.0-44.0); MEAN CORPUSCULAR HEMOGLOBIN 31.3 pg (27.0-33.0); MEAN CORPUSCULAR HGB CONC 34.5 g/dl (32.0-36.5); MEAN CORPUSCULAR VOLUME 90.8 fl (80.0-96.0); MONO # 0.5 10^3/uL (0.0-0.8); MONO % 5.4 % (0.0-5.0); NEUTROPHILS # 7.3 10^3/uL (1.5-8.5); PLATELET COUNT, AUTOMATED 170 10^3/uL (150-450); RED BLOOD COUNT 4.47 10^6/uL (4.00-5.40); WHITE BLOOD COUNT 9.9 10^3/uL (4.0-10.0)
[2019-06-20 22:30] LABS: CK-MB VALUE MASS < 1.0 NG/ML (<3.6); CPK CREATINE PHOSPHOKINASE 49 U/L (26-192); MB/CK RELATIVE INDEX 2.04 (< OR =4); TROPONIN I < 0.02 NG/ML (< 0.10)
[2019-06-20] MEDS ORDERED: NS 1,000 ML IV ONE (22:30)
[2019-06-20] MEDS ORDERED: fentaNYL 100 MCG/2 ML INJECTION (J3010) IV ONE ×2 (22:30→23:45)
[2019-06-20] MEDS ORDERED: ISOVUE-370 76% 100ML VIAL (Q9967) As Ordered ONE (22:36)
--- NOTE | 2019-06-20 23:20 | REPVR ---
PROCEDURE INFORMATION: Exam: CT Angiography Chest With Contrast Exam date and time: 06/20/2019 10:49 PM Age: 39 years old Clinical history: Chest pain; Additional info: R/O pe TECHNIQUE: Imaging protocol: Computed tomographic angiography of the chest with intravenous contrast. Axial, coronal and sagittal reformatted images were created and reviewed. 3D rendering: MIP reconstructed images were created and reviewed. Radiation optimization: All CT scans at this facility use at least one of these dose optimization techniques: automated exposure control; mA and/or kV adjustment per patient size (includes targeted exams where dose is matched to clinical indication); or iterative reconstruction. Contrast material: ISOVUE 370; Contrast volume: 75 ml; Contrast route: IV; COMPARISON: CR Chest, 2 view PA, Lat 07/06/2018 7:20 AM FINDINGS: Pulmonary arteries: Contrast opacification satisfactory. Bilateral pulmonary emboli, extending from the distal main pulmonary arteries into the lobar, segmental and subsegmental branches diffusely. Aorta: Unremarkable. No aneurysm or dissection. Lungs: Minimal subsegmental consolidation in the right middle lobe and lingula, likely due to atelectasis. No mass. Pleural space: Unremarkable. No pneumothorax. No pleural effusion. Heart: Subtle leftward bowing of the interventricular septum, suggesting developing right heart strain. No cardiomegaly. No pericardial effusion. Lymph nodes: No pathologically enlarged lymph nodes. Bones/joints: No acute osseous abnormality. Soft tissues: Unremarkable. IMPRESSION: 1. Bilateral pulmonary emboli, as described above. 2. Subtle leftward bowing of the interventricular septum, suggesting developing right heart strain. 3. Additional findings, as above. Electronically signed by: Sergio Graham On 06/20/2019 23:19:37 PM
[2019-06-20 23:34] LABS: INR 1.09; PROTHROMBIN TIME 13.8 SECONDS (11.8-14.0)
[2019-06-20 23:35] LABS: PARTIAL THROMBOPLASTIN TIME 27.8 SECONDS (25.0-38.4)
[2019-06-20] MEDS ORDERED: HEPARIN DRIP 25,000 UNITS in IV 1 EA IV SCH (23:42)
[2019-06-20] MEDS ORDERED: HEPARIN SOD (PORCINE) 5000 UNITS/ML VIAL IV ONE (23:45)
[2019-06-21] MEDS ORDERED: RIVAROXABAN 15 MG TAB (XARELTO) PO ONE (00:45)
--- NOTE | 2019-06-21 00:50 | HPEPDOC ---
General Date of Admission 06/21/19 Date of Service: Jun 21, 2019 Chief Complaint The patient is a 39-year-old female admitted with a reason for visit of Extremity Pain/Injury. Source: Patient Exam Limitations: No limitations Timing/Duration: 24 hours Severity: Mild Associated Symptoms: Shortness of breath History of Present Illness Patient is 39 years old female with past medical history of unprovoked DVT in 2001, paranoid schizophrenia presented to the hospital with left leg pain, shortness of breath. Patient stated that she has been having these symptoms for past 2 days. In emergency room patient was found to have on chest CTA bilateral pulmonary emboli, subtle leftward bowing of the interventricular septum, suggesting developing right heart strain. Doppler ultrasound showed heterogeneously hypoechoic, nonocclusive thrombus in the left popliteal vein. Heparin drip started. Of note patient is active smoker and she takes control pills. Patient denied fever, chills, nausea, vomiting, palpitations, chest pain, diarrhea or dysuria Home Medications Scheduled Aripiprazole (Aripiprazole) 10 Mg Tablet, 10 MG PO QHS, (Reported) Clonidine Hcl (Clonidine HCl) 0.1 Mg Tablet, 0.2 MG PO QHS, (Reported) Duloxetine Hcl (Duloxetine HCl) 20 Mg Capsule.dr, 20 MG PO DAILY, (Reported) Loratadine (Loratadine) 10 Mg Tablet, 10 MG PO DAILY, (Reported) Norethindrone-E.estradiol-Iron (Thomas Fe 1.5-30 Tablet) 1 Each Tablet, 1 TAB PO DAILY, (Reported) Omeprazole (Omeprazole) 40 Mg Cap, 40 MG PO BID, (Reported) Allergies Coded Allergies: PICKLES (Verified Allergy, Unknown, 06/20/19) Penicillins (Verified Allergy, Unknown, 06/20/19) acetaminophen (Verified Allergy, Unknown, 06/20/19) amoxicillin (Verified Allergy, Unknown, 06/20/19) hydrocodone (Verified Allergy, Unknown, 06/20/19) ibuprofen (Verified Allergy, Unknown, 06/20/19) phenazopyridine (Verified Allergy, Unknown, 06/20/19) pseudoephedrine (Verified Allergy, Unknown, 06/20/19) sulfamethoxazole (Verified Allergy, Unknown, 06/20/19) trimethoprim (Verified Allergy, Unknown, 06/20/19) Past Medical History Medical History unprovoked DVT in 2001, paranoid schizophrenia Family History Patient was adopted, she doesn't know her family history Social History * Smoker: current smoker Alcohol: Denies Drugs: other (used crack in the past, 15 years ago) A-FIB/CHADSVASC A-FIB History Current/History of A-Fib/PAF?: No Current PO Anticoag Therapy: No Review of Systems Constitutional: Denies: Chills Eyes: Denies: Pain, Vision change ENT: Denies: Head Aches, Ear Pain Skin: Denies: Rash, Lesions Pulmonary: Reports: Dyspnea, Pleuritic Chest Pain Cardiovascular: Denies: Chest Pain, Palpitations Gastrointestinal: Denies: Nausea Genitourinary: Denies: Dysuria, Frequency Hematologic: Denies: Bruising, Bleeding Excessively Endocrine: Denies: Polydipsia, Polyphagia Musculoskeletal: Denies: Neck Pain, Back Pain Neurological: Denies: Weakness, Numbness Psych: Reports: Mood Normal Physical Examination General Exam: Positive: Alert, Cooperative Eye Exam: Positive: PERRLA ENT Exam: Positive: Atraumatic, Mucous membr. moist/pink Neck Exam: Positive: Supple; Negative: JVD Chest Exam: Positive: Clear to auscultation Heart Exam: Positive: Rate Normal Telemetry: Positive: No significant arrhythmia Abdomen Exam: Positive: Normal bowel sounds Extremity Exam: Negative: Clubbing, Cyanosis Skin Exam: Positive: Nl turgor and temperature Neuro Exam: Positive: Normal Gait Psych Exam: Positive: Mental status NL Vital Signs Vital Signs Date Time Temp Pulse Resp B/P (MAP) Pulse Ox O2 Delivery O2 Flow Rate FiO2 06/21/19 00:04 18 06/20/19 23:20 83 94 Room Air 06/20/19 23:15 116/56 (76) 06/20/19 19:36 96.3 Laboratory Data Labs 24H Laboratory Tests 2 06/20/19 21:53: Immature Granulocyte % (Auto) 0.4, Neutrophils (%) (Auto) 74.0H, Lymphocytes (%) (Auto) 19.3L, Monocytes (%) (Auto) 5.4H, Eosinophils (%) (Auto) 0.6, Basophils (%) (Auto) 0.3, Neutrophils # (Auto) 7.3, Lymphocytes # (Auto) 1.9, Monocytes # (Auto) 0.5, Eosinophils # (Auto) 0.1, Basophils # (Auto) 0.0, Nucleated Red Blood Cells % (auto) 0.0, Prothrombin Time 13.8, Prothromb Time International Ratio 1.09, Activated Partial Thromboplast Time 27.8, Total Creatine Kinase 49, Creatine Kinase MB < 1.0, Creatine Kinase MB Relative Index 2.04, Troponin I < 0.02 06/20/19 22:17: POC Glucose (Misc Panel) 121H, POC Sodium (Misc Panel) 136, POC Potassium (Misc Panel) 3.9, POC Chloride (Misc Panel) 105, POC Total CO2 (Misc Panel) 18.0L, POC Blood Urea Nitrogen (Misc Panel < 3L, POC Ionized Calcium (Misc Panel) 4.4L, POC Creatinine (Misc Panel) 0.9, POC Hematocrit (Misc Panel) 39.0 CBC/BMP Laboratory Tests 06/20/19 21:53 Assessment/Plan Patient is 39 years old female with past medical history of unprovoked DVT in 2001, paranoid schizophrenia presented to the hospital with left leg pain, shortness of breath. Patient stated that she has been having these symptoms for past 2 days. In emergency room patient was found to have on chest CTA bilateral pulmonary emboli, subtle leftward bowing of the interventricular septum, suggesting developing right heart strain. Doppler ultrasound showed heterogeneously hypoechoic, nonocclusive thrombus in the left popliteal vein. Heparin drip started. Of note patient is active smoker and she takes control pills. Problems (1) Bilateral pulmonary embolism Status: Acute Problem Text: Second episode of blood clots Patient is on control pills and she is an active smoker Recommended to stop control pills and smoking I will stop heparin drip. Xarelto 15 mg twice a day. 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
[2019-06-21 01:03] LABS: C REACTIVE PROTEIN QUANTITATIV 2.76 MG/DL (0.00-0.30)
[2019-06-21 01:26] VITALS: BP 119/71
[2019-06-21] MEDS: ARIPiprazole 10 MG TAB PO SCH ×2 (01:54→20:56)
[2019-06-21] MEDS: OMEPRAZOLE 20 MG CAP PO SCH ×3 (01:54→20:55)
[2019-06-21] MEDS: cloNIDine 0.2 MG TAB PO SCH ×2 (01:55→20:57)
[2019-06-21] MEDS: traMADol 50 MG TAB PO PRN ×4 (02:54→20:57)
[2019-06-21 06:00] VITALS: BP 103/61
[2019-06-21] MEDS: LORATADINE 10 MG TAB PO SCH (08:51)
[2019-06-21] MEDS: DULoxetine 20 MG CAP (CYMBALTA) PO SCH (08:51)
[2019-06-21] MEDS: RIVAROXABAN 15 MG TAB (XARELTO) PO SCH ×2 (08:52→20:56)
--- NOTE | 2019-06-21 08:59 | ECGEPIP ---
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
[2019-06-21 09:00] LABS: BASO % 0.5 % (0.0-1.0); EOS # 0.1 10^3/uL (0.0-0.5); EOS % 1.5 % (0.0-3.0); HEMATOCRIT 38.3 % (36.0-47.0); HEMOGLOBIN 13.3 g/dl (12.0-15.5); LYMPH # 1.7 10^3/uL (1.5-5.0); LYMPH % 29.7 % (24.0-44.0); MEAN CORPUSCULAR HEMOGLOBIN 31.6 pg (27.0-33.0); MEAN CORPUSCULAR HGB CONC 34.7 g/dl (32.0-36.5); MONO # 0.4 10^3/uL (0.0-0.8); MONO % 7.2 % (0.0-5.0); NEUTROPHILS # 3.5 10^3/uL (1.5-8.5); NEUTROPHILS % 60.6 % (36.0-66.0); PLATELET COUNT, AUTOMATED 148 10^3/uL (150-450); RED BLOOD COUNT 4.21 10^6/uL (4.00-5.40); WHITE BLOOD COUNT 5.8 10^3/uL (4.0-10.0)
--- NOTE | 2019-06-21 09:24 | IPNPDOC ---
Subjective Date Seen The patient was seen on 06/21/19. Subjective Chief Complaint/HPI PE/DVT Events since last encounter Admitted for PE/LLE DVT. C/o pain with deep inspiration. Given Tramadol with minimal relief. + CHILDERS Constitutional: Denies: Chills, Fever, Night Sweats Pulmonary: Reports: Dyspnea Cardiovascular: Denies: Chest Pain, Palpitations, Orthopnea, Paroxysmal Noc. Dyspnea, Lt Headedness Gastrointestinal: Denies: Nausea, Vomiting, Abdominal Pain, Diarrhea, Constipation Objective Physical Examination General Exam: Positive: Alert, Cooperative Eye Exam: Positive: PERRLA ENT Exam: Positive: Atraumatic, Mucous membr. moist/pink Neck Exam: Positive: Supple; Negative: JVD Chest Exam: Positive: Clear to auscultation Heart Exam: Positive: Rate Normal Telemetry: Positive: No significant arrhythmia Abdomen Exam: Positive: Normal bowel sounds Extremity Exam: Negative: Clubbing, Cyanosis Skin Exam: Positive: Nl turgor and temperature Neuro Exam: Positive: Normal Gait Psych Exam: Positive: Mental status NL Assessment /Plan Problems (1) Bilateral pulmonary embolism Status: Acute Problem Text: Most likely provoked from OCP and smoking in 39 yo female. Echo pending. She is hypoxic with exertion. Will monitor. Xarelto 15 mg po bid. PT ordered. Will provide pain control. (2) Left leg DVT Status: Acute (3) Schizoaffective disorder Status: Chronic Problem Text: Recent [facility] stay 04/2019. Moods are currently stable. Plan/VTE VTE Prophylaxis Ordered?: Yes VS, I&O, 24H, Fishbone Vital Signs/I&O Vital Signs Date Time Temp Pulse Resp B/P (MAP) Pulse Ox O2 Delivery O2 Flow Rate FiO2 06/21/19 08:52 18 06/21/19 06:00 98.9 75 103/61 (75) 93 Room Air I&O- Last 24 Hours up to 6 AM 06/21/19 06:00 Intake Total 0 ml Output Total 0 ml Balance 0 ml Laboratory Data 24H LABS Laboratory Tests 2 06/20/19 21:53: Immature Granulocyte % (Auto) 0.4, Neutrophils (%) (Auto) 74.0H, Lymphocytes (%) (Auto) 19.3L, Monocytes (%) (Auto) 5.4H, Eosinophils (%) (Auto) 0.6, Basophils (%) (Auto) 0.3, Neutrophils # (Auto) 7.3, Lymphocytes # (Auto) 1.9, Monocytes # (Auto) 0.5, Eosinophils # (Auto) 0.1, Basophils # (Auto) 0.0, Nucleated Red Blood Cells % (auto) 0.0, Prothrombin Time 13.8, Prothromb Time International Ratio 1.09, Activated Partial Thromboplast Time 27.8, Total Creatine Kinase 49, Creatine Kinase MB < 1.0, Creatine Kinase MB Relative Index 2.04, Troponin I < 0.02, C-Reactive Protein, Quantitative 2.76H 06/20/19 22:17: POC Glucose (Misc Panel) 121H, POC Sodium (Misc Panel) 136, POC Potassium (Misc Panel) 3.9, POC Chloride (Misc Panel) 105, POC Total CO2 (Misc Panel) 18.0L, POC Blood Urea Nitrogen (Misc Panel < 3L, POC Ionized Calcium (Misc Panel) 4.4L, POC Creatinine (Misc Panel) 0.9, POC Hematocrit (Misc Panel) 39.0 06/21/19 08:12: Immature Granulocyte % (Auto) 0.5, Neutrophils (%) (Auto) 60.6, Lymphocytes (%) (Auto) 29.7, Monocytes (%) (Auto) 7.2H, Eosinophils (%) (Auto) 1.5, Basophils (%) (Auto) 0.5, Neutrophils # (Auto) 3.5, Lymphocytes # (Auto) 1.7, Monocytes # (Auto) 0.4, Eosinophils # (Auto) 0.1, Basophils # (Auto) 0.0, Nucleated Red Blood Cells % (auto) 0.0 CBC/BMP Laboratory Tests 06/20/19 21:53 06/21/19 08:12 Randa Huynh [facility] Jun 21, 2019 09:24
[2019-06-21 09:31] LABS: ALBUMIN 3.1 GM/DL (3.2-5.2); ALT/SGPT 29 U/L (12-78); BILIRUBIN,TOTAL 0.7 MG/DL (0.2-1.0); BLOOD UREA NITROGEN 5 MG/DL (7-18); CALCIUM LEVEL 8.1 MG/DL (8.5-10.1); CARBON DIOXIDE LEVEL 24 MEQ/L (21-32); CHLORIDE LEVEL 108 MEQ/L (98-107); CREATININE FOR GFR 0.83 MG/DL (0.55-1.30); GLOMERULAR FILTRATION RATE > 60.0 (>60); GLUCOSE, FASTING 94 MG/DL (70-100); POTASSIUM SERUM 3.8 MEQ/L (3.5-5.1); SODIUM LEVEL 138 MEQ/L (136-145); TOTAL PROTEIN 6.9 GM/DL (6.4-8.2)
[2019-06-21] MEDS ORDERED: XARE15TA PO (11:41)
[2019-06-21 20:00] VITALS: BP 122/67
[2019-06-21 20:57] VITALS: BP 122/67
--- NOTE | 2019-06-21 21:35 | ECHO ---
DATE OF PROCEDURE: 06/21/2019 Date of : 1980 Age: 39 REFERRING PHYSICIAN: Alberto Dasilva DO PATIENT LOCATION: Room 4207 REASON FOR ECHOCARDIOGRAM: Shortness of breath. 2D MEASUREMENTS: IVS: 1.2 cm LV: 4.1 cm LVPW: 1.2 cm LA: 3.8 cm Aorta: 3.0 cm DOPPLER MEASUREMENTS: Peak velocity across the aortic valve: 1.1 m/s Peak velocity across the LVOT: 0.9 m/s Mitral E: 0.91, Mitral A: 0.57, with a ratio of 1.6 2D COMMENTS: 1. Normal left ventricular size, wall thickness, and normal global left ventricular systolic function. The estimated left ventricular systolic ejection fraction is 60-65%. 2. Normal left atrium. Normal right atrium and right ventricle. 3. The atrial septum appeared to be normal without evidence of defect or shunt. 4. Normal aortic root. 4. No pericardial effusion seen. 5. The aortic valve, mitral valve, tricuspid valve appeared to be normal. The pulmonic valve and proximal pulmonary artery branches were not well visualized. 6. The inferior vena cava was not well visualized. DOPPLER: Only trace mitral regurgitation detected. Assessment of the left ventricular diastolic function appeared to be normal. IMPRESSION 1. Normal global left ventricular systolic and diastolic function. 2. Trace mitral regurgitation. 3. The pulmonic valve and proximal pulmonary artery branches were not well visualized. The inferior vena cava as well was not visualized.
[2019-06-21 22:00] VITALS: BP 122/67
[2019-06-22] MEDS: traMADol 50 MG TAB PO PRN ×2 (04:25→11:01)
[2019-06-22 06:00] VITALS: BP 121/67
[2019-06-22 06:20] LABS: HEMATOCRIT 36.2 % (36.0-47.0); HEMOGLOBIN 12.7 g/dl (12.0-15.5); MEAN CORPUSCULAR HEMOGLOBIN 31.7 pg (27.0-33.0); MEAN CORPUSCULAR HGB CONC 35.1 g/dl (32.0-36.5); MEAN CORPUSCULAR VOLUME 90.3 fl (80.0-96.0); PLATELET COUNT, AUTOMATED 153 10^3/uL (150-450); RED BLOOD COUNT 4.01 10^6/uL (4.00-5.40); WHITE BLOOD COUNT 5.8 10^3/uL (4.0-10.0)
[2019-06-22 06:43] LABS: BLOOD UREA NITROGEN 5 MG/DL (7-18); CALCIUM LEVEL 8.3 MG/DL (8.5-10.1); CARBON DIOXIDE LEVEL 27 MEQ/L (21-32); CHLORIDE LEVEL 106 MEQ/L (98-107); CREATININE FOR GFR 0.84 MG/DL (0.55-1.30); GLOMERULAR FILTRATION RATE > 60.0 (>60); GLUCOSE, FASTING 93 MG/DL (70-100); POTASSIUM SERUM 3.9 MEQ/L (3.5-5.1); SODIUM LEVEL 137 MEQ/L (136-145)
[2019-06-22] MEDS: OMEPRAZOLE 20 MG CAP PO SCH (07:25)
[2019-06-22] MEDS: DULoxetine 20 MG CAP (CYMBALTA) PO SCH (07:25)
[2019-06-22] MEDS: RIVAROXABAN 15 MG TAB (XARELTO) PO SCH (07:25)
[2019-06-22] MEDS: LORATADINE 10 MG TAB PO SCH (07:25)
[2019-06-22] MEDS ORDERED: TRAM50TA2 PO (10:56)
--- NOTE | 2019-06-23 15:52 | DSES ---
DATE OF ADMISSION: 06/20/2019 DATE OF DISCHARGE: 06/22/2019 PRIMARY CARE PHYSICIAN: MOSHE Rondon HISTORY: This is a 39-year-old female, obese, smoker, who presented to [facility] Emergency Room with shortness of breath who has a history of unprovoked deep vein thrombosis (DVT) in 2001, paranoid schizophrenic. She also had left leg pain. Symptoms were present for 2 days prior to her presentation. In the recovery room, she was found to have bilateral pulmonary emboli, and ultrasound suggested nonocclusive thrombus of the left popliteal vein. The patient was started on heparin drip. She was admitted to the hospital for further management and monitoring. Heparin drip was ultimately discontinued. She was started on Xarelto 15 mg twice daily. Her oral control pills have been discontinued. She has been counseled on smoking cessation. Patient did require some supplemental oxygen for hypoxemia, although is doing well at this time without. She is eager to return home. Anticoagulants have been sent to the pharmacy to ensure coverage. Patient will continue Xarelto 15 mg daily times 21 days. She should them transition to 20 mg daily on day 22. She is aware of this. She will need prescription for the 20 mg from her primary. She is taking Tramadol as needed for breakthrough pain. We counseled on utilizing this only as needed. She was given a 5-days supply with 15 tablets. DISCHARGE MEDICATIONS: - Xarelto 15 mg twice daily times 21 days - tramadol 50 mg every 6 hours as needed for breakthrough pain - aripiprazole 10 mg by mouth at bedtime - clonidine 0.2 mg by mouth at bedtime - duloxetine 20 mg daily - loratadine 10 mg daily - omeprazole 40 mg by mouth twice a day DISCHARGE DIAGNOSES: 1. Pulmonary emboli. 2. Left lower extremity deep vein thrombosis. 3. Morbid obesity. 4. Nicotine dependent. 5. Schizoaffective disorder. DISCHARGE PLAN: Followup with her primary care physician (PCP) in 1 week. Activity should be as tolerated. Diet is regular. Smoking cessation counseling done.
[2019-06-27 00:07] LABS: ANTI THROMBIN 3 ANTIGEN IMMUNO 73 % (72-124); ANTI THROMBIN 3 FUNCT ACTIVITY 119 % (75-135); ANTINUCLEAR ANTIBODIES DIRECT Negative (Negative); CARDIOLIPIN IGA ANTIBODY <9 APL U/mL (0-11); CARDIOLIPIN IGG ANTIBODY <9 GPL U/mL (0-14); CARDIOLIPIN IGM ANTIBODY 13 MPL U/mL (0-12); PROTEIN C FUNCTIONAL ACTIVITY 124 % (73-180); PROTEIN S FUNCTIONAL ACTIVITY 110 % (63-140)
[2019-06-27 09:51] LABS: DRVV SCREEN 119.9 SEC
[2019-06-27 10:00] LABS: PTT LUPUS TYPE ANTICOAG SCREEN 2.9 (0-1.2)
[2019-06-27 10:07] LABS: DRVV CONFIRM 57.5 SEC; LUPUS CONFIRM RATIO 1.5
[2019-06-27 10:13] LABS: NORMALIZED RATIO 1.93 (0.00-1.20)
== END 2019-06-22 12:48 | disposition home or self-care (01) ==
LOC: M ED 19:35 → M ED INP 19:36 → M MSPAV 06-21 01:08
PROVIDERS: ADMIT Internal Medicine; ATTEND Family Medicine
DX: I26.99 Other pulmonary embolism without acute cor pulmonale (principal); I82.432 Acute embolism and thrombosis of left popliteal vein; E66.01 Morbid (severe) obesity due to excess calories; Z68.41 Body mass index [BMI] 40.0-44.9, adult; F17.210 Nicotine dependence, cigarettes, uncomplicated; F25.9 Schizoaffective disorder, unspecified; R09.02 Hypoxemia; M79.605 Pain in left leg; Z79.899 Other long term (current) drug therapy; Z79.01 Long term (current) use of anticoagulants; Z86.718 Personal history of other venous thrombosis and embolism; Z88.0 Allergy status to penicillin; Z88.6 Allergy status to analgesic agent; Z88.5 Allergy status to narcotic agent; Z88.8 Allergy status to other drugs, medicaments and biological substances; Z88.2 Allergy status to sulfonamides; Z91.018 Allergy to other foods
CPT/HCPCS: 36415; 71275; 80047; 80048; 80053; 81240; 82550; 82553; 85025; 85027; 85300; 85301; 85303; 85305; 85598; 85610; 85613; 85730; 86038; 86140; 86147; 93005; 93041; 93306; 93971; 94760; 96361; 96374; 96375; 96376; 99285; J2405; J3010; Q9967

== ENCOUNTER 2019-06-26 20:40 | Observation (INO) | payer OTHER ==
[~2019-06-26] VITALS: Ht 165.1 cm; Wt 103.7 kg
[~2019-06-26 20:40] MED LIST changes: +DULO1CAP4 PO; +LARI1TAB PO; +LORA-674 PO; +TRAM50TA2 PO; +XARE15TA PO
[2019-06-26] MEDS ORDERED: traMADol 50 MG TAB PO ONE (21:30)
[2019-06-26] MEDS ORDERED: RIVAROXABAN 15 MG TAB (XARELTO) PO ONE (21:30)
[2019-06-26 21:38] LABS: BASO % 0.5 % (0.0-1.0); EOS # 0.2 10^3/uL (0.0-0.5); EOS % 2.3 % (0.0-3.0); HEMATOCRIT 37.3 % (36.0-47.0); HEMOGLOBIN 13.3 g/dl (12.0-15.5); LYMPH # 2.4 10^3/uL (1.5-5.0); LYMPH % 29.9 % (24.0-44.0); MEAN CORPUSCULAR HEMOGLOBIN 31.8 pg (27.0-33.0); MEAN CORPUSCULAR HGB CONC 35.7 g/dl (32.0-36.5); MEAN CORPUSCULAR VOLUME 89.2 fl (80.0-96.0); MONO # 0.5 10^3/uL (0.0-0.8); NEUTROPHILS # 4.8 10^3/uL (1.5-8.5); NEUTROPHILS % 60.8 % (36.0-66.0); PLATELET COUNT, AUTOMATED 229 10^3/uL (150-450); RED BLOOD COUNT 4.18 10^6/uL (4.00-5.40); WHITE BLOOD COUNT 7.9 10^3/uL (4.0-10.0)
[2019-06-26 22:01] LABS: BLOOD UREA NITROGEN 3 MG/DL (7-18); CALCIUM LEVEL 7.2 MG/DL (8.5-10.1); CARBON DIOXIDE LEVEL 22 MEQ/L (21-32); CHLORIDE LEVEL 111 MEQ/L (98-107); CREATININE FOR GFR 0.77 MG/DL (0.55-1.30); GLOMERULAR FILTRATION RATE > 60.0 (>60); GLUCOSE, FASTING 72 MG/DL (70-100); POTASSIUM SERUM 3.3 MEQ/L (3.5-5.1); SODIUM LEVEL 141 MEQ/L (136-145)
[2019-06-26 22:02] LABS: INR 1.05; PROTHROMBIN TIME 13.4 SECONDS (11.8-14.0)
[2019-06-26 22:03] LABS: PARTIAL THROMBOPLASTIN TIME 26.4 SECONDS (25.0-38.4)
[2019-06-26] MEDS ORDERED: TRAM50TA2 PO (22:19)
[2019-06-26] MEDS ORDERED: NICO2GUM MT (22:19)
[2019-06-26] MEDS ORDERED: NICO21DI9 TD (22:19)
[2019-06-26] MEDS ORDERED: ISOVUE-370 76% 100ML VIAL (Q9967) As Ordered ONE (22:33)
--- NOTE | 2019-06-26 23:36 | REPVR ---
PROCEDURE INFORMATION: Exam: CT Angiography Chest With Contrast Exam date and time: 06/26/2019 11:07 PM Age: 39 years old Clinical history: Chest pain; Additional info: Increased pain, known pes TECHNIQUE: Imaging protocol: Computed tomographic angiography of the chest with intravenous contrast. 3D rendering: MIP reconstructed images were created and reviewed. Radiation optimization: All CT scans at this facility use at least one of these dose optimization techniques: automated exposure control; mA and/or kV adjustment per patient size (includes targeted exams where dose is matched to clinical indication); or iterative reconstruction. Contrast material: ISOVUE 370; Contrast volume: 75 ml; Contrast route: IV; COMPARISON: CT ANGIO CHEST 2019-06-20 22:39 FINDINGS: Pulmonary arteries: Mildly improved burden of pulmonary emboli since the recent comparison study. Aorta: Unremarkable. No aortic aneurysm. No aortic dissection. Lungs: Slightly larger small focal opacity in the lingula adjacent to the fissure, question small pulmonary infarct or atelectasis. Pleural space: Unremarkable. No pneumothorax. No pleural effusion. Heart: Unremarkable. No cardiomegaly. No pericardial effusion. Liver: Hepatic steatosis. Pancreas: Pancreatic calcifications compatible with chronic pancreatitis. Spleen: Splenomegaly. Lymph nodes: Unremarkable. No enlarged lymph nodes. Bones/joints: Unremarkable. No acute fracture. Soft tissues: Unremarkable. IMPRESSION: 1. Mildly improved burden of pulmonary emboli since the recent comparison study. 2. Slightly larger small focal opacity in the lingula adjacent to the fissure, question small pulmonary infarct or atelectasis. Electronically signed by: Jeremías Vazquez On 06/26/2019 23:36:09 PM
--- NOTE | 2019-06-26 23:57 | HPEPDOC ---
[facility] Medical History & Physical Date of Admission Jun 26, 2019 Date of Service: Jun 26, 2019 Primary Care Physician: Fatimah De La Garza Attending Physician: Margarito Dillard MD History and Physical TIME OF SERVICE: 11:59 PM CHIEF COMPLAINT: Chest pain HISTORY OF PRESENT ILLNESS: This is a 39 year old female who presents with complaints of 10 /10 in severity chest pain that is made worse by breathing & didn't improve despite receiving tramadol. Associated symptoms include vomiting which she attributes to the chest pain. She was diagnosed bilateral PE and left lower extremity DVT last week and started on Xarelto. Because of insurance issues, she was unable to get the m edications. She last took Xarelto on Wednesday and was given a dose in the ER. Due to the risk that she may not follow-up because of her psychiatric history the requested admission pending completion of the prior authorization paperwork. REVIEW OF SYSTEMS: 12 point review of systems negative except as listed in HPI PAST MEDICAL/ SURGICAL HISTORY: Provoked DVT in 2001 Bilateral PE/left lower extremity DVT diagnosed on June 21 Paranoid schizophrenia SOCIAL HISTORY: Current smoker. Remote history of crack cocaine use FAMILY HISTORY: Unknown because patient was adopted ALLERGIES: Please see below. HOME MEDICATIONS: Please see below. PHYSICAL EXAMINATION: VITAL SIGNS: Please see below. GENERAL APPEARANCE: Well nourished, well-developed, slightly anxious HEENT: Normocephalic, atraumatic. Mucous membranes moist and pink CARDIOVASCULAR: Rate and rhythm. No murmurs, rubs or gallops LUNGS: Clear to auscultation bilaterally on room air MUSCULOSKELETAL:.Motion intact in all 4 extremities. Left lower extremity swollen and tender with palpation NEUROLOGICAL: Cranial nerves II-12 are grossly intact. Speech is not dysarthric PSYCHIATRIC: Alert and oriented, able to understand and follow commands LABORATORY DATA: See below. IMAGING: CT chest " IMPRESSION: 1. Mildly improved burden of pulmonary emboli since the recent comparison study. 2. Slightly larger small focal opacity in the lingula adjacent to the fissure, question small pulmonary infarct or atelectasis" Chest x-ray report pending ASSESSMENT: is a 39-year-old with a past medical paranoid schizophrenia, recurrent DVTs and PE will be admitted for management of hypokalemia and resumption of her NOAC pending completion prior authorization paper work. PLAN: 1. Chest pain likely secondary to DVT/PE. This was initially diagnosed on June 21. Her risk factors for DVT and PE include obesity, OCP use, and smoking. The patient has not taken her medication since Wednesday. CT report reviewed. Today, her blood pressure and heart rate are within normal limits. EKG showed sinus rhythm with a heart rate of 78 without S1, Q 3, or T3 or ST elevation or depression Plan: Admit to medical floor/telemetry / follow-up troponin & BNP /continue Xarelto 15mg Q12H / Tramadol for chest pain 2. Hypokalemia secondary to emesis Plan: Replete potassium/ Follow-up electrolytes & bHCG / PO Zofran PRN 3. Tobacco abuse. Plan: Smoking cessation education/nicotine patch 4 Obesity BMI is 38.8 Plan: Follow-up A1c/ She can f/u w PCP for STOP BANG questionnaire hardware test engineer consult / recommend cardiovascular exercise for 40 min 4-5 days a week 5. Paranoid schizophrenia. Plan: Resume home meds DVT prophylaxis as she is on Xarelto Disposition likely home after less than one midnight stay / PFS consult has be en placed Vital Signs Vital Signs Date Time Temp Pulse Resp B/P (MAP) Pulse Ox O2 Delivery O2 Flow Rate FiO2 06/26/19 22:30 73 20 110/69 (83) 96 Room Air 06/26/19 20:52 97.3 Laboratory Data Labs 24H Laboratory Tests 2 06/26/19 21:18: Immature Granulocyte % (Auto) 0.5, Neutrophils (%) (Auto) 60.8, Lymphocytes (%) (Auto) 29.9, Monocytes (%) (Auto) 6.0H, Eosinophils (%) (Auto) 2.3, Basophils (%) (Auto) 0.5, Neutrophils # (Auto) 4.8, Lymphocytes # (Auto) 2.4, Monocytes # (Auto) 0.5, Eosinophils # (Auto) 0.2, Basophils # (Auto) 0.0, Nucleated Red Blood Cells % (auto) 0.0, Anion Gap 8, Glomerular Filtration Rate > 60.0, Calcium Level 7.2L 06/26/19 21:23: Prothrombin Time 13.4, Prothromb Time International Ratio 1.05, Activated Partial Thromboplast Time 26.4 CBC/BMP Laboratory Tests 06/26/19 21:18 Home Medications Scheduled Apixaban (Eliquis) 5 Mg Tablet, 10 MG PO BID Apixaban (Eliquis) 5 Mg Tablet, 5 MG PO BID Aripiprazole (Aripiprazole) 10 Mg Tablet, 10 MG PO QHS Clonidine Hcl (Clonidine HCl) 0.1 Mg Tablet, 0.2 MG PO QHS Duloxetine Hcl (Duloxetine HCl) 20 Mg Capsule.dr, 20 MG PO DAILY Loratadine (Loratadine) 10 Mg Tablet, 10 MG PO DAILY Nicotine (Nicotine Patch) 21 Mg/24 Hr Patch.td24, 21 MG TD DAILY Omeprazole (Omeprazole) 40 Mg Cap, 40 MG PO BID Scheduled PRN Nicotine Polacrilex (Nicotine Gum) 2 Mg Gum, 2 MG MT Q2H PRN for NICOTINE WITHDRAWAL Tramadol HCl (Tramadol HCl) 50 Mg Tablet, 50 MG PO Q6H PRN for PAIN Allergies Coded Allergies: PICKLES (Verified Allergy, Unknown, 06/26/19) Penicillins (Verified Allergy, Unknown, 06/26/19) acetaminophen (Verified Allergy, Unknown, 06/26/19) amoxicillin (Verified Allergy, Unknown, 06/26/19) ibuprofen (Verified Allergy, Unknown, 06/26/19) phenazopyridine (Verified Allergy, Unknown, 06/26/19) pseudoephedrine (Verified Allergy, Unknown, 06/26/19) sulfamethoxazole (Verified Allergy, Unknown, 06/26/19) trimethoprim (Verified Allergy, Unknown, 06/26/19) A-FIB/CHADSVASC A-FIB History Current/History of A-Fib/PAF?: No Current PO Anticoag Therapy: No ETHAN DOSHI MD Jun 26, 2019 23:57
[2019-06-27] MEDS ORDERED: POTASSIUM CHLORIDE 10 MEQ SR TABLET PO ONE
[2019-06-27 00:10] LABS: NT-PRO BNP 105 PG/ML (<125)
[2019-06-27] MEDS ORDERED: ONDANSETRON 4MG/2ML VIAL (J2405) IV PRN (00:30)
[2019-06-27] MEDS ORDERED: traMADol ER 100MG TABLET (ULTRAM ER) PO PRN (00:30)
[2019-06-27] MEDS ORDERED: ONDANSETRON 4 MG TAB (S0181) PO PRN (00:30)
[2019-06-27 00:46] LABS: URINE PREG TEST NEGATIVE (NEGATIVE)
[2019-06-27 00:50] LABS: TROPONIN I < 0.02 NG/ML (< 0.10)
[2019-06-27 01:25] VITALS: BP 133/76
[2019-06-27 01:28] LABS: HEMOGLOBIN A1c 5.2 %
[2019-06-27] MEDS ORDERED: ARIPiprazole 10 MG TAB PO SCH (02:00)
[2019-06-27 06:00] VITALS: BP 127/74
[2019-06-27 06:19] LABS: MEAN CORPUSCULAR HEMOGLOBIN 31.8 pg (27.0-33.0); MEAN CORPUSCULAR HGB CONC 36.1 g/dl (32.0-36.5); PLATELET COUNT, AUTOMATED 220 10^3/uL (150-450); RED BLOOD COUNT 4.09 10^6/uL (4.00-5.40); WHITE BLOOD COUNT 6.2 10^3/uL (4.0-10.0)
[2019-06-27 06:35] LABS: POTASSIUM SERUM 3.9 MEQ/L (3.5-5.1)
--- NOTE | 2019-06-27 07:49 | REP ---
Clinical: Chest pain . Comparison: 07/06/2018 . Findings: The mediastinum and cardiac silhouette are stable and within normal limits for portable technique. The lung starkey are clear without acute consolidation, effusion, or pneumothorax. Skeletal structures are intact. Impression: No acute cardiopulmonary process appreciated. Electronically Signed by Miguel Merida MD 06/27/2019 07:40 A
--- NOTE | 2019-06-27 08:46 | IPNPDOC ---
Subjective Date Seen The patient was seen on 06/27/19. Subjective Chief Complaint/HPI Pt states that she wasn't able to get a hold of anyone on Wednesday when the pharmacy told her that her prior auth wasn't completed. This was submitted on Wed. She called the office on Wednesday but hadn't heard back from anyone when she went to the ED. She states that her last dose of medication was Wednesday morning. General: Denies: Fatigue Constitutional: Denies: Fever Pulmonary: Reports: Dyspnea Cardiovascular: Reports: Chest Pain Gastrointestinal: Denies: Nausea, Vomiting, Diarrhea Neurological: Denies: Weakness Psych: Reports: Mood Normal Objective Physical Examination General Exam: Positive: Alert, No Acute Distress ENT Exam: Positive: Mucous membr. moist/pink Neck Exam: Positive: Supple Chest Exam: Positive: Clear to auscultation, Normal air movement Heart Exam: Positive: Rate Normal, Normal S1, Normal S2 Abdomen Exam: Positive: Normal bowel sounds, Soft; Negative: Tenderness Extremity Exam: Negative: Edema Skin Exam: Positive: Nl turgor and temperature Neuro Exam: Positive: Normal Speech Assessment /Plan Problems (1) Bilateral pulmonary embolism Status: Acute Response to Treatment: Stable, Controlled Discussed With: Nurse, Patient Problem Specific Plan: Monitor Clinically Problem Text: Pt was d/c on , I spoke with her nurse that day who had spoke with the pharmacy and with the Charge nurse from the day before and reported to me that the auth had been submitted and would likely hear a response on Wednesday. Her insurance in my experience has covered Xarelto in the past. The pt was given her dose of med for evening and Wednesday morning and d/c. She was advised that if she was unable to obtain her prescription by 12 pm on Wednesday she was to call the oncall service for the office. According to her nurse the change nurse was going to follow up on the Auth on Wednesday. I spoke with the change nurse this morning, she will be in touch with the pharmacy and find out the status of the auth, once this is completed Angela can be d/c. (2) Schizoaffective disorder Status: Chronic Plan/VTE VTE Prophylaxis Ordered?: Yes VS, I&O, 24H, Fishbone Vital Signs/I&O Vital Signs Date Time Temp Pulse Resp B/P (MAP) Pulse Ox O2 Delivery O2 Flow Rate FiO2 06/27/19 06:00 98.7 66 18 127/74 (91) 93 Room Air I&O- Last 24 Hours up to 6 AM 06/27/19 06:00 Intake Total 240 ml Output Total 600 ml Balance -360 ml Laboratory Data 24H LABS Laboratory Tests 2 06/26/19 21:18: Immature Granulocyte % (Auto) 0.5, Neutrophils (%) (Auto) 60.8, Lymphocytes (%) (Auto) 29.9, Monocytes (%) (Auto) 6.0H, Eosinophils (%) (Auto) 2.3, Basophils (%) (Auto) 0.5, Neutrophils # (Auto) 4.8, Lymphocytes # (Auto) 2.4, Monocytes # (Auto) 0.5, Eosinophils # (Auto) 0.2, Basophils # (Auto) 0.0, Nucleated Red Blood Cells % (auto) 0.0, Anion Gap 8, Glomerular Filtration Rate > 60.0, Estimated Mean Plasma Glucose 103, Hemoglobin A1c 5.2, Calcium Level 7.2L, Troponin I < 0.02, EY-Rji-M-Type Natriuretic Peptide 105 06/26/19 21:23: Prothrombin Time 13.4, Prothromb Time International Ratio 1.05, Activated Partial Thromboplast Time 26.4 06/26/19 21:42: Urine Test NEGATIVE 06/27/19 05:37: Nucleated Red Blood Cells % (auto) 0.0, Magnesium Level 2.0 CBC/BMP Laboratory Tests 06/26/19 21:18 06/27/19 05:37 LOIS SANTO PA-C Jun 27, 2019 08:46
[2019-06-27] MEDS ORDERED: RIVAROXABAN 15 MG TAB (XARELTO) PO SCH (09:00)
[2019-06-27] MEDS ORDERED: RIVAROXABAN 10 MG TAB (XARELTO) PO SCH (09:00)
[2019-06-27] MEDS ORDERED: APIXABAN 5 MG TAB (ELIQUIS) PO SCH (09:00)
[2019-06-27] MEDS ORDERED: ELIQ5TAB PO (13:28)
--- NOTE | 2019-06-27 16:44 | ECGEPIP ---
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
[2019-07-04] MEDS ORDERED: APIXABAN 5 MG TAB (ELIQUIS) PO SCH (09:00)
== END 2019-06-27 14:40 | disposition home or self-care (01) ==
LOC: M ED 20:40 → M ED INP 06-27 00:09 → M MSPAV 06-27 01:20
PROVIDERS: ADMIT Internal Medicine; ATTEND Family Medicine
DX: I26.99 Other pulmonary embolism without acute cor pulmonale (principal); F25.9 Schizoaffective disorder, unspecified; E87.6 Hypokalemia; E66.9 Obesity, unspecified; Z88.0 Allergy status to penicillin; Z88.8 Allergy status to other drugs, medicaments and biological substances; Z88.2 Allergy status to sulfonamides; F17.218 Nicotine dependence, cigarettes, with other nicotine-induced disorders; Z79.899 Other long term (current) drug therapy
CPT/HCPCS: 36415; 71045; 71275; 80048; 83036; 83735; 83880; 84132; 84703; 85025; 85027; 85610; 85730; 93005; 93041; 94760; 99285; Q9967

== ENCOUNTER 2019-07-18 00:14 | Emergency (ER) | payer OTHER ==
[~2019-07-18] VITALS: Ht 165.1 cm; Wt 111.4 kg
[~2019-07-18 00:14] MED LIST changes: +ELIQ5TAB PO; +NICO21DI9 TD; +NICO2GUM MT
[2019-07-18] MEDS ORDERED: SERO1TAB3 PO ×2 (00:51→03:42)
[2019-07-18 02:03] LABS: HEMATOCRIT 41.6 % (36.0-47.0); HEMOGLOBIN 13.8 g/dl (12.0-15.5); MEAN CORPUSCULAR HGB CONC 33.2 g/dl (32.0-36.5); MEAN CORPUSCULAR VOLUME 90.4 fl (80.0-96.0); PLATELET COUNT, AUTOMATED 185 10^3/uL (150-450); WHITE BLOOD COUNT 6.4 10^3/uL (4.0-10.0)
[2019-07-18 02:21] LABS: INR 1.1
[2019-07-18 02:22] LABS: PARTIAL THROMBOPLASTIN TIME 27.5 SECONDS (25.0-38.4)
[2019-07-18 02:27] LABS: AMPHETAMINES LEVEL URINE NEGATIVE (NEGATIVE); BARBITURATES URINE NEGATIVE (NEGATIVE); BENZODIAZEPINES URINE NEGATIVE (NEGATIVE); CANNABINOIDS URINE NEGATIVE (NEGATIVE); COCAINE METABOLITE URINE NEGATIVE (NEGATIVE); METHADONE URINE NEGATIVE (NEGATIVE); OPIATES URINE NEGATIVE (NEGATIVE); PHENCYCLIDINE URINE NEGATIVE (NEGATIVE)
[2019-07-18 02:32] LABS: HCG, SERUM QUALITATIVE NEGATIVE (NEGATIVE)
[2019-07-18 02:40] LABS: ACETAMINOPHEN LEVEL < 2.0 UG/ML (10.0-30.0); ALBUMIN 3.5 GM/DL (3.2-5.2); ALT/SGPT 17 U/L (12-78); BILIRUBIN,DIRECT < 0.1 MG/DL (0.0-0.2); BILIRUBIN,TOTAL 0.4 MG/DL (0.2-1.0); BLOOD UREA NITROGEN 8 MG/DL (7-18); CALCIUM LEVEL 8.3 MG/DL (8.5-10.1); CARBON DIOXIDE LEVEL 25 MEQ/L (21-32); CHLORIDE LEVEL 107 MEQ/L (98-107); CREATININE FOR GFR 0.92 MG/DL (0.55-1.30); ETHYL ALCOHOL (ETHANOL) < 0.003 % (0.000-0.010); GLOMERULAR FILTRATION RATE > 60.0 (>60); GLUCOSE, FASTING 105 MG/DL (70-100); POTASSIUM SERUM 3.9 MEQ/L (3.5-5.1); SALICYLATE LEVEL 2.9 MG/DL (5.0-30.0); SODIUM LEVEL 139 MEQ/L (136-145); TOTAL PROTEIN 6.6 GM/DL (6.4-8.2)
[2019-07-18] MEDS ORDERED: TRAM50TA2 PO (03:42)
[2019-07-18] MEDS ORDERED: ELIQ5TAB PO (03:42)
[2019-07-18] MEDS ORDERED: NICO21DI37 TD (03:45)
[2019-07-18] MEDS ORDERED: diphenhydrAMINE 25 MG CAP PO ONE (04:00)
--- NOTE | 2019-07-18 05:44 | ECGEPIP ---
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
[2019-07-18] MEDS ORDERED: OMEPRAZOLE 20 MG CAP PO ONE (08:15)
[2019-07-18] MEDS ORDERED: APIXABAN 5 MG TAB (ELIQUIS) PO ONE (08:15)
[2019-07-18 18:25] VITALS: BP 138/80
== END 2019-07-18 18:28 ==
LOC: M ED 00:14
DX: F20.9 Schizophrenia, unspecified (principal); F23 Brief psychotic disorder; F43.10 Post-traumatic stress disorder, unspecified; Z86.718 Personal history of other venous thrombosis and embolism; F17.200 Nicotine dependence, unspecified, uncomplicated; Z79.01 Long term (current) use of anticoagulants; Z79.899 Other long term (current) drug therapy; Z91.018 Allergy to other foods; Z88.0 Allergy status to penicillin; Z88.6 Allergy status to analgesic agent; Z88.8 Allergy status to other drugs, medicaments and biological substances
CPT/HCPCS: 80048; 80076; 80307; 81001; 84443; 84703; 85027; 85610; 85730; 93005; 99285; G0480

== ENCOUNTER 2019-10-13 20:42 | Emergency (ER) | payer OTHER ==
[~2019-10-13] VITALS: Ht 165.1 cm; Wt 107.0 kg
[~2019-10-13 20:42] MED LIST changes: +NICO21DI37 TD; +SERO1TAB3 PO
[2019-10-13] MEDS ORDERED: SERO1TAB PO (20:59)
[2019-10-13] MEDS ORDERED: FLUTISP INH (20:59)
[2019-10-13] MEDS ORDERED: ALBU8.5H INH (20:59)
[2019-10-13] MEDS ORDERED: QUET5TAB PO (20:59)
[2019-10-13] MEDS ORDERED: OMEP-221 (20:59)
[2019-10-13 21:44] LABS: BASO % 0.3 % (0.0-1.0); EOS # 0.1 10^3/uL (0.0-0.5); EOS % 1.7 % (0.0-3.0); HEMOGLOBIN 13.5 g/dl (12.0-15.5); LYMPH # 1.9 10^3/uL (1.5-5.0); LYMPH % 27.1 % (24.0-44.0); MEAN CORPUSCULAR HEMOGLOBIN 30.4 pg (27.0-33.0); MEAN CORPUSCULAR HGB CONC 34.6 g/dl (32.0-36.5); MEAN CORPUSCULAR VOLUME 87.8 fl (80.0-96.0); MONO # 0.4 10^3/uL (0.0-0.8); MONO % 5.4 % (0.0-5.0); NEUTROPHILS # 4.7 10^3/uL (1.5-8.5); NEUTROPHILS % 65.4 % (36.0-66.0); PLATELET COUNT, AUTOMATED 178 10^3/uL (150-450); RED BLOOD COUNT 4.44 10^6/uL (4.00-5.40); WHITE BLOOD COUNT 7.2 10^3/uL (4.0-10.0)
--- NOTE | 2019-10-13 22:00 | REPVR ---
PROCEDURE INFORMATION: Exam: US Duplex Right Lower Extremity Veins, Limited Exam date and time: 10/13/2019 9:49 PM Age: 39 years old Clinical indication: Pain; Leg, lower; Right; Additional info: Calf pain, HX dvt TECHNIQUE: Imaging protocol: Real-time Duplex ultrasound of the Right Lower Extremity with 2-D gandhi scale, color Doppler flow and spectral waveform analysis with image documentation. Limited exam was focused on the right lower extremity veins. COMPARISON: No relevant prior studies available. FINDINGS: Right deep veins: Unremarkable. The common femoral, femoral, proximal profunda femoral and popliteal veins are patent without thrombus. Normal Doppler waveforms. Normal compressibility and/or augmentation response. Right superficial veins: Unremarkable. Saphenofemoral junction is patent without thrombus. Soft tissues: Unremarkable. IMPRESSION: No sonographic evidence of deep vein thrombosis. Electronically signed by: Sergio Graham On 10/13/2019 21:59:27 PM
[2019-10-13] MEDS ORDERED: LIDOCAINE 4% CREAM 5GM (LMX4) TOP ONE (22:30)
[2019-10-13] MEDS ORDERED: FLUT1INH2 INH (22:33)
[2019-10-13] MEDS ORDERED: BACL10TA2 PO (22:33)
[2019-10-13] MEDS ORDERED: LARI1TAB PO (22:33)
[2019-10-13 22:41] VITALS: BP 129/72
== END 2019-10-13 22:53 | disposition home or self-care (01) ==
LOC: M ED 20:42
DX: M79.604 Pain in right leg (principal); R60.0 Localized edema; Z86.711 Personal history of pulmonary embolism; Z86.718 Personal history of other venous thrombosis and embolism; Z91.14 Patient's other noncompliance with medication regimen; J45.909 Unspecified asthma, uncomplicated; K58.9 Irritable bowel syndrome, unspecified; Z87.440 Personal history of urinary (tract) infections; M79.7 Fibromyalgia; M54.30 Sciatica, unspecified side; Z87.42 Personal history of other diseases of the female genital tract; F17.200 Nicotine dependence, unspecified, uncomplicated; Z79.899 Other long term (current) drug therapy; Z88.0 Allergy status to penicillin; Z88.6 Allergy status to analgesic agent; Z91.018 Allergy to other foods

== ENCOUNTER 2019-10-20 09:32 | Emergency (ER) | payer OTHER ==
[~2019-10-20] VITALS: Ht 165.1 cm; Wt 106.4 kg
[~2019-10-20 09:32] MED LIST changes: +ALBU8.5H INH; +FLUT1INH2 INH; +FLUTISP INH; +OMEP-221; +SERO1TAB PO
[2019-10-20] MEDS ORDERED: MORPHINE 2 MG/ML 1ML VIAL (J2270) IV ONE (10:45)
[2019-10-20 10:51] LABS: BASO % 0.3 % (0.0-1.0); EOS # 0.1 10^3/uL (0.0-0.5); HEMATOCRIT 41.6 % (36.0-47.0); HEMOGLOBIN 14.2 g/dl (12.0-15.5); LYMPH # 1.1 10^3/uL (1.5-5.0); LYMPH % 16.1 % (24.0-44.0); MEAN CORPUSCULAR HEMOGLOBIN 30.2 pg (27.0-33.0); MEAN CORPUSCULAR HGB CONC 34.1 g/dl (32.0-36.5); MEAN CORPUSCULAR VOLUME 88.5 fl (80.0-96.0); MONO # 0.4 10^3/uL (0.0-0.8); MONO % 5.7 % (0.0-5.0); NEUTROPHILS # 5.3 10^3/uL (1.5-8.5); NEUTROPHILS % 75.6 % (36.0-66.0); PLATELET COUNT, AUTOMATED 204 10^3/uL (150-450)
[2019-10-20 11:02] LABS: INR 0.95; PROTHROMBIN TIME 12.4 SECONDS (11.8-14.0)
[2019-10-20 11:03] LABS: PARTIAL THROMBOPLASTIN TIME 29.8 SECONDS (25.0-38.4)
--- NOTE | 2019-10-20 11:04 | REP ---
DUPLEX EXTREMITY VENOUS ULTRASOUND: RIGHT LOWER EXTREMITY. HISTORY: Right leg swelling. Comparison study October 13, 2019. FINDINGS: Today's study demonstrates a new finding of occlusive and extensive deep venous thrombosis in the right lower extremity from proximal femoral vein distally through the popliteal vein. Common femoral vein segment is clear. IMPRESSION: Positive study for extensive occlusive deep vein thrombosis in the right femoral vein and right popliteal vein. Electronically Signed by Rojelio Riggins MD 10/20/2019 11:33 A
[2019-10-20 11:14] LABS: BLOOD UREA NITROGEN 5 MG/DL (7-18); CALCIUM LEVEL 8.3 MG/DL (8.5-10.1); CARBON DIOXIDE LEVEL 25 MEQ/L (21-32); CHLORIDE LEVEL 107 MEQ/L (98-107); CREATININE FOR GFR 0.71 MG/DL (0.55-1.30); GLOMERULAR FILTRATION RATE > 60.0 (>60); GLUCOSE, FASTING 107 MG/DL (70-100); POTASSIUM SERUM 3.8 MEQ/L (3.5-5.1); SODIUM LEVEL 139 MEQ/L (136-145)
[2019-10-20] MEDS ORDERED: ISOVUE-370 76% 100ML VIAL (Q9967) As Ordered ONE (11:48)
--- NOTE | 2019-10-20 14:24 | REP ---
CT PULMONARY ANGIOGRAM: WITH IV CONTRAST. HISTORY: Bilateral pulmonary embolus May 2019. Right lower extremity DVT on today's sonography. Comparison CT pulmonary angiogram June 26, 2019. Contrast dose: 75 mL of Isovue [address] TECHNIQUE: Helical scanning is acquired and overlapping 1.5 mm and contiguous 3 mm axial images are reformatted. In addition, maximum intensity projection and multiplanar re-formation images are generated in sagittal and coronal imaging projections. CT PULMONARY ANGIOGRAPHIC FINDINGS: There is good opacification of the pulmonary arterial tree. There are small linear filling defects in several pulmonary arterial branches consistent with pulmonary embolism. These include right upper lobe, right middle lobe, and right lower lobe thrombi. There is a small filling defect in the in the left lower lobe pulmonary arterial tree. These are different in appearance and location when compared to the June 26, 2019 and are consistent with recurrent pulmonary emboli. There is a peripheral pleural-based infiltrate in the right lower lobe anteriorly abutting the base of the minor fissure which it is a new infiltrate compatible with small pulmonary infarction. No other pulmonary infiltrate is seen. No hilar or mediastinal mass is seen. No adenopathy is observed. No adrenal lesion is seen. Visualized upper abdominal structures are unremarkable. IMPRESSION: Findings consistent with recurrent but multiple bilateral small pulmonary emboli, new from the recent prior study of June 26, 2019. There is a small peripheral infiltrate in the right lower lobe consistent with a small pulmonary infarction. Electronically Signed by Rojelio Riggins MD 10/20/2019 02:50 P
[2019-10-20] MEDS ORDERED: ELIQ5TAB PO (15:02)
[2019-10-20] MEDS ORDERED: APIXABAN 5 MG TAB (ELIQUIS) PO ONE (15:15)
[2019-10-20 15:19] VITALS: BP 142/76
--- NOTE | 2019-10-21 08:44 | ECGEPIP ---
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
--- NOTE | 2019-10-23 07:41 | ED PDOC ---
Post-Departure Follow-Up [facility] faxed formal report of cta chest for fu Sofia Gates MD Oct 23, 2019 07:41
--- NOTE | 2019-10-23 07:46 | ED PDOC ---
Post-Departure Follow-Up us lower extremity also faxed to [facility] for fu Sofia Gates MD Oct 23, 2019 07:46
[2019-10-24] MEDS ORDERED: SERO200T PO (15:53)
== END 2019-10-20 15:25 | disposition home or self-care (01) ==
LOC: M ED 09:32
DX: I26.99 Other pulmonary embolism without acute cor pulmonale (principal); I80.201 Phlebitis and thrombophlebitis of unspecified deep vessels of right lower extremity; I80.211 Phlebitis and thrombophlebitis of right iliac vein; I80.11 Phlebitis and thrombophlebitis of right femoral vein; I80.221 Phlebitis and thrombophlebitis of right popliteal vein; Z86.711 Personal history of pulmonary embolism; F17.200 Nicotine dependence, unspecified, uncomplicated; Z79.01 Long term (current) use of anticoagulants; Z79.899 Other long term (current) drug therapy; Z88.0 Allergy status to penicillin; Z88.6 Allergy status to analgesic agent; Z88.8 Allergy status to other drugs, medicaments and biological substances; Z91.018 Allergy to other foods
CPT/HCPCS: 71275; 80048; 85025; 85610; 85730; 93005; 93971; 96374; 99284; J2270; Q9967

== ENCOUNTER 2019-10-24 23:29 | Observation (INO) | payer OTHER ==
[~2019-10-24] VITALS: Ht 165.1 cm; Wt 104.3 kg
[~2019-10-24 23:29] MED LIST changes: +SERO200T PO
[2019-10-25] VITALS (11 sets, daily range): BP systolic 103–122; BP diastolic 55–72
[2019-10-25] MEDS ORDERED: MORPHINE 4 MG/ML 1ML VIAL/SYRINGE (J2270) IV PRN (00:15)
[2019-10-25] MEDS ORDERED: ONDANSETRON 4MG/2ML VIAL (J2405) IV ONE (00:15)
[2019-10-25] MEDS ORDERED: MORPHINE 2 MG/ML 1ML VIAL (J2270) IV PRN (01:00)
[2019-10-25] MEDS ORDERED: ONDANSETRON 4MG/2ML VIAL (J2405) IV PRN (01:00)
[2019-10-25] MEDS ORDERED: NICO2GUM MT (01:06)
[2019-10-25] MEDS ORDERED: LIDO4CRE4 EXT (01:06)
[2019-10-25] MEDS ORDERED: OMEP-221 PO (01:06)
[2019-10-25] MEDS ORDERED: ELIQ5TAB PO (01:06)
[2019-10-25] MEDS ORDERED: PROAAER10 INH (01:06)
[2019-10-25] MEDS ORDERED: FLON1SPR (01:06)
[2019-10-25] MEDS ORDERED: DEXTROSE 50% 50 ML SYRINGE IV PRN (01:15)
[2019-10-25] MEDS ORDERED: GLUCOSE 4 GM CHEW TABLET PO PRN (01:15)
[2019-10-25] MEDS ORDERED: NICOTINE POLACRILEX 2 MG GUM MT PRN (01:15)
[2019-10-25] MEDS ORDERED: BACLOFEN 10 MG TAB PO PRN (01:15)
[2019-10-25] MEDS ORDERED: ALBUTEROL 90 MCG/ACT 8GM HFA INHALER INH PRN (01:15)
[2019-10-25] MEDS ORDERED: GLUCAGON FOR INJ 1 MG VIAL (J1610) SC PRN (01:15)
[2019-10-25] MEDS ORDERED: NICOTINE 21MG/24HR 1 EA TRANSDERMAL TD PRN (01:15)
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
[2019-10-25] MEDS: traMADol 50 MG TAB PO PRN ×3 (02:30→20:14)
[2019-10-25 05:48] LABS: HEMATOCRIT 37.2 % (36.0-47.0); HEMOGLOBIN 12.9 g/dl (12.0-15.5); MEAN CORPUSCULAR HEMOGLOBIN 30.5 pg (27.0-33.0); MEAN CORPUSCULAR HGB CONC 34.7 g/dl (32.0-36.5); MEAN CORPUSCULAR VOLUME 87.9 fl (80.0-96.0); PLATELET COUNT, AUTOMATED 229 10^3/uL (150-450); RED BLOOD COUNT 4.23 10^6/uL (4.00-5.40); WHITE BLOOD COUNT 5.7 10^3/uL (4.0-10.0)
[2019-10-25 06:12] LABS: BLOOD UREA NITROGEN 7 MG/DL (7-18); CALCIUM LEVEL 8.4 MG/DL (8.5-10.1); CARBON DIOXIDE LEVEL 27 MEQ/L (21-32); CHLORIDE LEVEL 107 MEQ/L (98-107); CREATININE FOR GFR 0.74 MG/DL (0.55-1.30); GLOMERULAR FILTRATION RATE > 60.0 (>60); GLUCOSE, FASTING 101 MG/DL (70-100); POTASSIUM SERUM 3.5 MEQ/L (3.5-5.1); SODIUM LEVEL 138 MEQ/L (136-145)
[2019-10-25] MEDS: HumaLOG INSULIN (NovoLOG) PER UNIT SC SCH ×3 (07:30→17:17)
[2019-10-25] MEDS: OMEPRAZOLE 20 MG CAP PO SCH ×2 (08:22→20:53)
[2019-10-25] MEDS: APIXABAN 5 MG TAB (ELIQUIS) PO SCH ×2 (08:23→20:53)
--- NOTE | 2019-10-25 11:46 | CR.PDOC ---
General Date of Consultation: Oct 25, [address] Barboza HPI: 39 year old F with a past medical history significant for DVT, PE, history of factor V Leiden, abnormal lupus anticoagulant, ongoing tobacco use and on OCP for history of menorrhagia. The patient had been prescribed Eliquis anticoagulation however according to the patient she stopped it about 2 months ago because she did not call for a refill on her prescription. The patient was seen in the emergency department 10/20/19 with imaging indicating right lower extremity DVT and CTA chest indicating pulmonary emboli. The patient was restarted on her Eliquis anticoagulation. The patient was scheduled to follow-up with her primary care provider 10/23/19 however the patient apparently no showed the appointment. The patient was scheduled with vascular surgery for IVC filter placement 10/25/[address] Barboza. The patient reported to the emergency department 10/24/19 with intractable pain and was admitted as per the hospitalist service. Vascular surgery is consulted. Denies any fevers, chills, weakness, fatigue, Headache, Chest Pain, Shortness of breath, cough, palpitations, abdominal pain, N/V/D or changes in bowel or bladder habits. PAST MEDICAL HISTORY: 1. Deep vein thrombosis and history of bilateral pulmonary embolism 2. History of factor V Leiden deficiency 3. Diabetes mellitus type 2 4. Hypertension 5. Hyperlipidemia 6. Fibromyalgia 7. Sciatica 8. Depression 9. PTSD 10. Paranoia schizophrenia 11. Anxiety. PAST SURGICAL HISTORY: 1. Salpingectomy. 2. Colposcopy 3. section. SOCIAL HISTORY: She is a current smoker. 1 pack per day. History of substance use. She stated that she used to snort cocaine. She denies any history of IV drug use. FAMILY HISTORY: Patient is adopted ROS: As noted in HPI, otherwise 11pt ROS of systems reviewed and unremarkable. States she is no longer taking OCP. PE: GEN: 39 yo F, appears stated age. Alert and oriented x 3. HEENT: Normocephalic, atraumatic. Moist mucous membranes. CHEST: Regular rate and rhythm, +S1, +S2 LUNGS: Clear to auscultation bilaterally. No wheezes, rales, or rhonchi. ABD: Round, soft, non-tender, non-distended. +Bowel sounds throughout. EXT: Pedal pulses are palpable. Good capillary refill. Mild edema noted of the right lower extremity however no erythema, tenderness, cording. No phlegmasia. NEURO: Alert and oriented x 3. No focal deficits appreciated. DUPLEX EXTREMITY VENOUS ULTRASOUND: RIGHT LOWER EXTREMITY. HISTORY: Right leg swelling. Comparison study October 13, 2019. FINDINGS: Today's study demonstrates a new finding of occlusive and extensive deep venous thrombosis in the right lower extremity from proximal femoral vein distally through the popliteal vein. Common femoral vein segment is clear. IMPRESSION: Positive study for extensive occlusive deep vein thrombosis in the right femoral vein and right popliteal vein. Electronically Signed by Rojelio Riggins MD 10/20/2019 11:33 A CTA chest IMPRESSION: Findings consistent with recurrent but multiple bilateral small pulmonary emboli, new from the recent prior study of June 26, 2019. There is a small peripheral infiltrate in the right lower lobe consistent with a small pulmonary infarction. Electronically Signed by Rojelio Riggins MD 10/20/2019 02:50 P A&P: 1. Recurrent DVT/PE. The patient is also known to have history of abnormal lupus anticoagulant and factor V Leiden. Patient is a smoker and had been on OCP related to menorrhagia. The patient is also noncompliant with anticoagulation and had apparently stopped it approximately 2 months ago stating she did not call for a refill on her prescription. The patient is currently restarted on Eliquis anticoagulation. The patient is scheduled for IVC filter placement with Dr. Barboza. The procedure, risks, benefits and alternatives are reviewed with the patient. The patient verbalizes understanding and agreement and would like to proceed. Informed consent is obtained and placed on the chart. 2. Noncompliance. The patient admits to recent noncompliance with anticoagulation. She reports to me today that she had stopped Eliquis approximately 2 months ago and did not call for refill on her prescription. I have reinforced the importance of compliance with taking Eliquis as prescribed and to not skip doses or discontinue the medication on her own. Vital Signs/I&O Vital Signs Date Time Temp Pulse Resp B/P (MAP) Pulse Ox O2 Delivery O2 Flow Rate FiO2 10/25/19 08:59 18 10/25/19 06:00 97.1 76 110/63 (79) 92 Room Air I&O- Last 24 Hours up to 6 AM 10/25/19 06:00 Intake Total 300 ml Output Total 0 ml Balance 300 ml Laboratory Data Labs 24H Laboratory Tests 2 10/25/19 02:21: Bedside Glucose (Misc Panel) 111H 10/25/19 05:37: Nucleated Red Blood Cells % (auto) 0.0, Anion Gap 4L, Glomerular Filtration Rate > 60.0, Calcium Level 8.4L 10/25/19 11:15: Bedside Glucose (Misc Panel) 108H CBC/BMP Laboratory Tests 10/25/19 05:37 Allergies Coded Allergies: PICKLES (Verified Allergy, Unknown, 10/24/19) Penicillins (Verified Allergy, Unknown, 10/24/19) acetaminophen (Verified Allergy, Unknown, 10/24/19) amoxicillin (Verified Allergy, Unknown, 10/24/19) ibuprofen (Verified Allergy, Unknown, 10/24/19) phenazopyridine (Verified Allergy, Unknown, 10/24/19) pseudoephedrine (Verified Allergy, Unknown, 10/24/19) sulfamethoxazole (Verified Allergy, Unknown, 10/24/19) trimethoprim (Verified Allergy, Unknown, 10/24/19) Home Medications Scheduled Apixaban (Eliquis) 5 Mg Tablet, 5 MG PO ASDIRECTED, (Reported) 10MG BID FOR 7 DAYS (STARTED 10/20) THEN 5MG BID FOR REMAINDER Aripiprazole (Aripiprazole) 10 Mg Tablet, 10 MG PO QHS, (Reported) Clonidine Hcl (Clonidine HCl) 0.1 Mg Tablet, 0.2 MG PO QHS, (Reported) Duloxetine Hcl (Duloxetine HCl) 20 Mg Capsule.dr, 20 MG PO QHS, (Reported) Fluticasone Propion/Salmeterol (Fluticasone-Salmeterol 113-14) 1 Each Aer.pow.ba, 1 PUFF INH BID, (Reported) Fluticasone Propionate (Flonase Allergy Relief) 9.9 Ml [place].susp, 1 SPRAY NA QHS, (Reported) Loratadine (Loratadine) 10 Mg Tablet, 10 MG PO QHS, (Reported) Omeprazole (Omeprazole) 40 Mg Capsule.dr, 40 MG PO BID, (Reported) Quetiapine Fumarate (Seroquel) 200 Mg Tablet, 200 MG PO QHS, (Reported) Scheduled PRN Albuterol Sulfate (Proair Hfa) 8.5 Gm Hfa.aer.ad, 2 PUFF INH Q4H PRN for SHORTNESS OF BREATH, (Reported) Baclofen (Baclofen) 10 Mg Tablet, 30 MG PO QHS PRN for MUSCLE SPASMS, (Reported) Lidocaine (Lidocaine) 15 Gm Cream..g., 1 DOSE EXT TID PRN for PAIN, (Reported) APPLIES TO LOWER BACK NEEDED FOR PAIN Nicotine (Nicotine Patch) 21 Mg Patch.td24, 21 MG TD DAILY PRN for SMOKING CESSATION, (Reported) Nicotine Polacrilex (Nicotine Gum) 2 Mg Gum, 2 MG MT Q2H PRN for SMOKING CESSATION, (Reported) Tramadol HCl (Tramadol HCl) 50 Mg Tablet, 50 MG PO Q6H PRN for PAIN, (Reported) Natalie Kwon Oct 25, 2019 11:46
[2019-10-25] MEDS ORDERED: LIDOCAINE 1% MDV 20ML VIAL As Ordered ONE (16:09)
[2019-10-25] MEDS ORDERED: ISOVUE-300 61% 50ML VIAL (Q9967) As Ordered ONE (16:09)
[2019-10-25] MEDS ORDERED: MIDAZOLAM INJ 2 MG/2 ML VIAL (J2250) As Ordered ONE (16:22)
[2019-10-25] MEDS ORDERED: fentaNYL 100 MCG/2 ML INJECTION (J3010) As Ordered ONE (16:22)
--- NOTE | 2019-10-25 17:28 | IPNPDOC ---
Date Seen The patient was seen on 10/25/19. Progress Note SUBJECTIVE: Pt seen and examined at beside. Patient's hip pain down to 4-5 with tramadol. Patient I am other symptoms of fevers, chills, chest pain, difficulty breathing, nausea, vomiting, abdominal pain, diarrhea, leg swelling OBJECTIVE PHYSICAL EXAMINATION: VITAL SIGNS: Please see below. GENERAL: Laying in bed in no acute distress, pleasant on interview CARDIOVASCULAR: RRR, normal S1/2, no murmur. RESPIRATORY: CTA B/L, no W/R/R. ABDOMINAL: Soft, nontender, nondistended, obese EXTREMITIES:. No edema, intact distal pulses NEUROLOGICAL:. No focal deficits, normal speech PSYCHOLOGICAL: AAO 3, appropriate LABORATORY DATA, IMAGING STUDIES, MICROBIOLOGY: Please see below. ASSESSMENT AND PLAN: he is a 39-year-old female with extensive medical history including DVT/PE, factor V Leiden deficiency, DM 2, hypertension, hyperlipidemia, fibromyalgia, sciatica, depression, PTSD, paranoid jermain izophrenia, anxiety who presented to [facility] with complaint of worsening right extremity pain with a recent diagnosis of right-sided DVT and bilateral pulmonary embolism. Patient to get IVC filter placed today. Report patient in the past has taken tramadol with good effect but ran out of pills at home PROBLEMS: 1. Right-sided extremity pain, likely secondary to fibromyalgia versus pulmonary embolism. -Patient presented complaining of right-sided extremity pain mostly located i n the hip on the right side. She was recently diagnosed with a deep vein thrombosis of the right femoral vein and right popliteal vein. She has been started on anticoagulation. Today she notes worsening pain in the hip. This is unlikely to be due to her deep vein thrombosis, more likely due to her f ibromyalgia. Patient states that she takes tramadol at home for this. However, has recently ran out of this medication -Placed on observation -Patient has received IV morphine for pain management in the emergency department provide 2 mg IV morphine every 6 hours for extreme pain. Morphine DC'd in preparation for discharge home, tramadol seems to be working Morphine every 6 when necessary, will DC with prescription 2. Deep vein thrombosis with bilateral small pulmonary emboli -Patient has deep vein thrombosis of the right femoral vein and right popliteal vein as well as small bilateral pulmonary emboli. She has been started on Eliquis outpatient. Patient is currently scheduled for IVC filter placement with vascular 10/25/2019. -She currently denies any shortness of breath or pleuritic chest pain -Will continue her Eliquis while in hospital Will likely discharge tomorrow on Eliquis 3. Hypertension -Currently stable 4. Depression, anxiety, PTSD and paranoid schizophrenia -Currently stable. Will continue patient's home medications including clonidine, Abilify, Cymbalta -Continue Seroquel 200 mg daily at bedtime 5. Fibromyalgia -Continue patient's tramadol 50 mg every 6 hours when necessary for pain -Continue Cymbalta -Continue baclofen 30 mg daily at bedtime when necessary for muscle spasms 6. Allergies -Continue Claritin 10 mg daily at bedtime -Flonase 7. Gastroesophageal reflux disease -Continue Prilosec 40 mg twice a day by mouth 8. Diabetes mellitus type 2 -Patient states she has borderline diabetes, currently not on medication. Will cover with sliding scale insulin before meals and at bedtime 9. Tobacco Abuse -Continue Patients home nicotine patch and gum 10. DVT Prophylaxis -Patient chronically on Eliquis DISPOSITION: Can likely discharge home tomorrow after IVC filter placement today. VS, I&O, 24H, Fishbone Vital Signs/I&O Vital Signs Date Time Temp Pulse Resp B/P (MAP) Pulse Ox O2 Delivery O2 Flow Rate FiO2 10/25/19 16:00 97.8 68 16 92 Room Air 10/25/19 14:00 103/55 (71) I&O- Last 24 Hours up to 6 AM 10/25/19 06:00 Intake Total 300 ml Output Total 0 ml Balance 300 ml Laboratory Data 24H LABS Laboratory Tests 2 10/25/19 02:21: Bedside Glucose (Misc Panel) 111H 10/25/19 05:37: Nucleated Red Blood Cells % (auto) 0.0, Anion Gap 4L, Glomerular Filtration Rate > 60.0, Calcium Level 8.4L 10/25/19 11:15: Bedside Glucose (Misc Panel) 108H CBC/BMP Laboratory Tests 10/25/19 05:37 CAMI DOMINGUEZ MD Oct 25, 2019 17:28
--- NOTE | 2019-10-25 19:01 | ROOPDOC ---
[facility] Report Of Operation Report of Operation DATE OF PROCEDURE: 10/25/19 PREPROCEDURE DIAGNOSES: DVT and PE, hypercoagulable state, poor compliance with anticoagulation POSTPROCEDURE DIAGNOSES: Same PROCEDURE: 1. Ultrasound-guided access right basilic vein 2. Vena cava gram 3. Placement of an option infrarenal IVC filter 4. Completion vena cava gram SURGEON: Damaris Barboza MD ANESTHESIA: Local anesthesia 7 mL lidocaine. Moderate intravenous conscious sedation was supervised by Dr. Barboza. The patient was independently monitored by a registered nurse and signed of the department of radiology using automated blood pressure, EKG, and pulse oximetry. The detailed sedation record is permanently stored in the hospital information system. The following is a brief sedation record: Start time 16:55, stop time 17:13, Versed 0.5 mg IV, fentanyl 25 g IV. INDICATION FOR PROCEDURE: This is a very pleasant 39-year-old patient with a hypercoagulable state, recurrent DVT, PE, tobacco use, taking OCP, and poor compliance with anticoagulation. She has very high risk for complications associated with DVT, including further PE, despite being on anticoagulation now. The patient has a long-standing history of being poorly compliant with her medications, and for stopping her anticoagulation due to increased bleeding during her periods in the past. She has been extensively counseled on the importance of lifelong anticoagulation, but after discussion with her primary care physician, there is a great concern that the patient will not be consistently compliant. Therefore, we discussed the risks benefits and alternat mitul to an IVC filter placement. I think it is reasonable to place a filter in this high-risk patient. She was extensively counseled also about the importance of continuing anticoagulation, the importance of smoking cessation, and general medical compliance. She is very receptive to this discussion, and says she actually did try to quit smoking and has not smoked in a few days. This is very encouraging. We made sure to give her a great deal of praise for that decision. After an extensive conversation the patient was agreeable to proceed and informed consent was obtained. INTERPRETATION: 1. The vena cava is free from thrombosis in the renal veins were identified and marked. An Option IVC filter was successfully deployed with no significant tilt infrarenal. Completion arteriogram showed the filter to be in good position, the renal veins flowing freely proximal to the filter, and no extravasation noted. REPORT OF OPERATION: we The patient was brought to the angiographic suite in stable condition. Her right upper extremity was prepped and draped in a sterile fashion. A timeout was performed. Local anesthesia was administered to the skin and subcutaneous tissue over the basilic vein. A microneedle was used to access the vein under ultrasound guidance. A wire was passed through this access in the needle was removed. A 4 [place] sheath was placed and flushed with saline. We then advanced a Glidewire and glide cath into the central system under fluoroscopic guidance. Following this, we placed the sheath for the IVC filter over the wire into the distal vena cava just above the iliac veins. A vena cava gram was performed. Please interpretation above. We then advanced the IVC filter into the distal aspect of the sheath and retracted the sheath in order to deploy the filter just below the renal veins. The filter was deployed and was in good position with no significant tilt. We then replaced the Glidewire through the sheath and advanced the sheath into the distal IVC near the iliac veins. A second vena cava gram was performed to confirm placement of the filter, and we noted the filter in good position below the renal veins with free flow from the renal veins bilaterally, no extravasation from filter placement. We then removed the sheath and held pressure for 10 minutes for good hemostasis. Sterile dressings were applied and the patient was taken back to her hospital room in stable condition. She tolerated the procedure and the sedation very well. ESTIMATED BLOOD LOSS: Approximately 2 mL. COMPLICATIONS: None. PLAN: It is okay to resume her preoperative diet and medications. It is okay to remove the dressing from the right arm after 24 hours. The patient may experience a little bruising in that area since she is on eliquis. 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 The patient should continue anticoagulation. We would be happy to see her back in clinic in 3 months with a repeat lower extremity venous duplex to follow-up her DVT, if she desires. Although this is a removable filter, we will have to have a discussion with her primary doctor and the patient to decide if it is best to leave the filter in place indefinitely due to her high risk for recurrent DVT and PE. We appreciate the opportunity to participate in the care of this patient. DAMARIS BARBOZA MD Oct 25, 2019 19:01
[2019-10-25] MEDS ORDERED: FLUTICASONE PROP 0.05% NASAL SPRAY 16 GM (FLONASE) SCH (21:00)
[2019-10-25] MEDS ORDERED: QUEtiapine FUMARATE 200 MG TAB PO SCH (21:00)
[2019-10-25] MEDS ORDERED: HumaLOG INSULIN (NovoLOG) PER UNIT SC SCH (21:00)
[2019-10-25] MEDS ORDERED: ARIPiprazole 10 MG TAB PO SCH (21:00)
[2019-10-25] MEDS ORDERED: DULoxetine 20 MG CAP (CYMBALTA) PO SCH (21:00)
[2019-10-25] MEDS ORDERED: cloNIDine 0.2 MG TAB PO SCH (21:00)
[2019-10-25] MEDS ORDERED: LORATADINE 10 MG TAB PO SCH (21:00)
[2019-10-26 02:00] VITALS: BP 109/62
[2019-10-26 06:00] VITALS: BP 106/61
[2019-10-26] MEDS: HumaLOG INSULIN (NovoLOG) PER UNIT SC SCH (07:30)
[2019-10-26] MEDS: APIXABAN 5 MG TAB (ELIQUIS) PO SCH (08:59)
[2019-10-26] MEDS: traMADol 50 MG TAB PO PRN (08:59)
[2019-10-26] MEDS: OMEPRAZOLE 20 MG CAP PO SCH (08:59)
[2019-10-26] MEDS ORDERED: TRAM50TA2 PO (09:58)
--- NOTE | 2019-10-26 10:13 | DS.PDOC ---
Discharge Summary General Date of Admission Oct 24, 2019 at 23:30 Date of Discharge 10/26/19 Attending Physician: CAMI DOMINGUEZ MD Specialist/Consultants Involve: DAMARIS CHAPARRO MD Discharge Summary PROCEDURES PERFORMED DURING STAY: IVF filter placement ADMITTING DIAGNOSES: 1. Right hip intractable pain DISCHARGE DIAGNOSES: 1. Right hip intractable pain 2. Deep vein thrombosis and history of bilateral pulmonary embolism 3. History of factor V Leiden deficiency 4. Diabetes mellitus type 2 5. Hypertension 6. Hyperlipidemia 7. Fibromyalgia 8. Sciatica 9. Depression 10. PTSD 11. Paranoia schizophrenia 12. Anxiety. COMPLICATIONS/CHIEF COMPLAINT: Intractable right hip Pain. HISTORY OF PRESENT ILLNESS: Patient is a 39-year-old female who presented to [facility], emergency department with a complaint of worsening right sided extremity pain. On 10/20/2019, the patient had originally presented to the emergency department with pleuritic chest pain and right-sided leg pain and was found to have a DVT as well as recurrent multiple bilateral small pulmonary emboli and a peripheral infiltrate in the right lower lobe consistent with a small pulmonary infarction. Patient was vitally stable in the emergency room and was discharged on Eliquis. Patient was scheduled for elective thrombectomy with interventional radiology on 10/25/2019 at 1300. She states that tonight she developed worsening pain in her right leg, but states that the pain is mostly in her hip. She denies any worsening shortness of breath. She denies any worsening of her calf pain. She states that she normally takes tramadol at home and has recently run out of that. She presented to the emergency department for management of her intractable pain In the emergency room and the patient was vitally stable. She received 4 mg of morphine and Zofran and noted improvement in her pain. Hospitalist service was consulted for further evaluation and management of the patient. HOSPITAL COURSE: Pt was started on tramadol for pain as well as morphine for breakthrough. Patient did well with tramadol and pain resolving under discharge. Due to newly diagnosed DVT with some small PEs patient had previously scheduled IVC filter placed on 10/25/19. Patient tolerated procedure well. Patient seen and examined on day of discharge doing well, only complaining of mild right hip pain. She denies other symptoms of fevers, chills, chest pain, difficulty breathing, nausea, vomiting, abdominal pain, dysuria, diarrhea, leg swelling. Patient able to ambulate on right hip. Plan for patient to go home on tramadol and a follow with primary care doctor at her previously scheduled upcoming appointment. Plan discussed with patient and she is in agreement. DISCHARGE MEDICATIONS: Please see below. ALLERGIES: Please see below. PHYSICAL EXAMINATION ON DISCHARGE: VITAL SIGNS: Please see below. GENERAL: Laying in bed in no acute distress, pleasant, eager to go home CARDIOVASCULAR: RRR, normal S1/2, no murmur. RESPIRATORY: CTA B/L, no W/R/R. ABDOMINAL: Soft, nontender, nondistended, obese EXTREMITIES:. No edema, intact distal pulses, mild pain on movement of right hip NEUROLOGICAL:. No focal deficits, normal speech PSYCHOLOGICAL: AAO 3, appropriate LABORATORY DATA: Please see below. PROGNOSIS: Good ACTIVITY: As tolerated. DIET: Diabetic cardiac DISCHARGE PLAN: Plan to discharge home with follow-up with primary care physician DISCHARGE INSTRUCTIONS: 1. Please follow-up with your primary care physician please ITEMS TO FOLLOWUP ON ON OUTPATIENT: 1. Please assess for other causes of hip pain and decide on pain control regimen DISCHARGE CONDITION: Stable. TIME SPENT ON DISCHARGE: 32 minutes. Vital Signs/I&Os Vital Signs Date Time Temp Pulse Resp B/P (MAP) Pulse Ox O2 Delivery O2 Flow Rate FiO2 10/26/19 09:29 18 10/26/19 06:00 98.6 80 106/61 (76) 96 Room Air 10/25/19 17:15 2 I&O- Last 24 Hours up to 6 AM 10/26/19 06:00 Intake Total 1365 ml Output Total 1500 ml Balance -135 ml Laboratory Data Labs 24H Laboratory Tests 2 10/25/19 11:15: Bedside Glucose (Misc Panel) 108H 10/25/19 16:37: Bedside Glucose (Misc Panel) 105 10/25/19 20:25: Bedside Glucose (Misc Panel) 185H 10/26/19 06:07: Bedside Glucose (Misc Panel) 103 FSBS Laboratory Tests Test 10/25/19 11:15 10/25/19 16:37 10/25/19 20:25 10/26/19 06:07 Range/Units Bedside Glucose (Misc Panel) 108 105 185 103 70-105 MG/DL Discharge Medications Scheduled Apixaban (Eliquis) 5 Mg Tablet, 5 MG PO ASDIRECTED, (Reported) 10MG BID FOR 7 DAYS (STARTED 10/20) THEN 5MG BID FOR REMAINDER Aripiprazole (Aripiprazole) 10 Mg Tablet, 10 MG PO QHS, (Reported) Clonidine Hcl (Clonidine HCl) 0.1 Mg Tablet, 0.2 MG PO QHS, (Reported) Duloxetine Hcl (Duloxetine HCl) 20 Mg Capsule.dr, 20 MG PO QHS, (Reported) Fluticasone Propion/Salmeterol (Fluticasone-Salmeterol 113-14) 1 Each Aer.pow.ba, 1 PUFF INH BID, (Reported) Fluticasone Propionate (Flonase Allergy Relief) 9.9 Ml [place].susp, 1 SPRAY NA QHS, (Reported) Loratadine (Loratadine) 10 Mg Tablet, 10 MG PO QHS, (Reported) Omeprazole (Omeprazole) 40 Mg Capsule.dr, 40 MG PO BID, (Reported) Quetiapine Fumarate (Seroquel) 200 Mg Tablet, 200 MG PO QHS, (Reported) Scheduled PRN Albuterol Sulfate (Proair Hfa) 8.5 Gm Hfa.aer.ad, 2 PUFF INH Q4H PRN for SHORTNESS OF BREATH, (Reported) Baclofen (Baclofen) 10 Mg Tablet, 30 MG PO QHS PRN for MUSCLE SPASMS, (Reported) Lidocaine (Lidocaine) 15 Gm Cream..g., 1 DOSE EXT TID PRN for PAIN, (Reported) APPLIES TO LOWER BACK NEEDED FOR PAIN Nicotine (Nicotine Patch) 21 Mg Patch.td24, 21 MG TD DAILY PRN for SMOKING CESSATION, (Reported) Nicotine Polacrilex (Nicotine Gum) 2 Mg Gum, 2 MG MT Q2H PRN for SMOKING CESSATION, (Reported) Tramadol HCl (Tramadol HCl) 50 Mg Tablet, 50 MG PO Q6H PRN for PAIN Allergies Coded Allergies: PICKLES (Verified Allergy, Unknown, 10/24/19) Penicillins (Verified Allergy, Unknown, 10/24/19) acetaminophen (Verified Allergy, Unknown, 10/24/19) amoxicillin (Verified Allergy, Unknown, 10/24/19) ibuprofen (Verified Allergy, Unknown, 10/24/19) phenazopyridine (Verified Allergy, Unknown, 10/24/19) pseudoephedrine (Verified Allergy, Unknown, 10/24/19) sulfamethoxazole (Verified Allergy, Unknown, 10/24/19) trimethoprim (Verified Allergy, Unknown, 10/24/19) CAMI DOMINGUEZ MD Oct 26, 2019 10:13
[2019-10-28] MEDS ORDERED: APIXABAN 5 MG TAB (ELIQUIS) PO SCH (09:00)
== END 2019-10-26 11:48 | disposition home or self-care (01) ==
LOC: M ED 23:29 → M ED INP 23:30 → ENRESERV 10-25 01:43 → M MSPAV 10-25 02:11
PROVIDERS: ADMIT Internal Medicine; ATTEND Internal Medicine
DX: I82.411 Acute embolism and thrombosis of right femoral vein (principal); I82.431 Acute embolism and thrombosis of right popliteal vein; I26.99 Other pulmonary embolism without acute cor pulmonale; M25.551 Pain in right hip; Z86.718 Personal history of other venous thrombosis and embolism; Z86.711 Personal history of pulmonary embolism; E11.9 Type 2 diabetes mellitus without complications; I10 Essential (primary) hypertension; E78.5 Hyperlipidemia, unspecified; M79.7 Fibromyalgia; M54.30 Sciatica, unspecified side; D68.61 Antiphospholipid syndrome; F32.9 Major depressive disorder, single episode, unspecified; F43.10 Post-traumatic stress disorder, unspecified; F41.9 Anxiety disorder, unspecified; F20.0 Paranoid schizophrenia; K21.9 Gastro-esophageal reflux disease without esophagitis; J30.89 Other allergic rhinitis; D68.2 Hereditary deficiency of other clotting factors; F17.210 Nicotine dependence, cigarettes, uncomplicated; Z91.14 Patient's other noncompliance with medication regimen; Z79.899 Other long term (current) drug therapy; Z79.01 Long term (current) use of anticoagulants; Z79.3 Long term (current) use of hormonal contraceptives; Z91.018 Allergy to other foods; Z88.0 Allergy status to penicillin; Z88.6 Allergy status to analgesic agent; Z88.8 Allergy status to other drugs, medicaments and biological substances; Z88.2 Allergy status to sulfonamides
CPT/HCPCS: 36415; 37191; 80048; 85027; 96374; 96375; 96376; 99152; 99153; 99284; C1769; C1880; C1887; C1894; J1644; J2250; J2270; J2405; J3010; Q9967

== ENCOUNTER → 2019-10-31 | Outpatient (REF) | payer OTHER ==
[~2019-10-31] MED LIST changes: +FLON1SPR; +LIDO4CRE4 EXT; +OMEP-221 PO; +PROAAER10 INH
== END ==
LOC: M SFHCPLAZ 10:38
PROVIDERS: ATTEND Physician Assistant Medical
DX: Z53.9 Procedure and treatment not carried out, unspecified reason (principal); I82.461 Acute embolism and thrombosis of right calf muscular vein; E66.9 Obesity, unspecified

== ENCOUNTER → 2020-01-09 | Outpatient (REF) | payer OTHER ==
[~2020-01-09] MED LIST changes: +ARIP1TAB10 PO; +CYCL-707 PO; -CYCL10TA PO; +ESCI10TA16 PO; -ESCI10TA2 PO; -ESCI20TA PO; +ESCI20TA16 PO; +METH-1164 PO; -METH1TAB40 PO; +QUET50TA3 PO; -QUET5TAB PO; +RISP-7 PO; -RISP0.5T3 PO; +ROBA750T4 PO; +ULTR50TA8 PO
[2020-01-09 18:03] LABS: BASO % 0.3 % (0.0-1.0); EOS # 0.1 10^3/uL (0.0-0.5); HEMATOCRIT 45.1 % (36.0-47.0); HEMOGLOBIN 15.5 g/dl (12.0-15.5); LYMPH % 32.9 % (24.0-44.0); MEAN CORPUSCULAR HEMOGLOBIN 30.9 pg (27.0-33.0); MEAN CORPUSCULAR HGB CONC 34.4 g/dl (32.0-36.5); MEAN CORPUSCULAR VOLUME 89.8 fl (80.0-96.0); MONO # 0.3 10^3/uL (0.0-0.8); MONO % 5.4 % (0.0-5.0); NEUTROPHILS # 3.6 10^3/uL (1.5-8.5); NEUTROPHILS % 60.2 % (36.0-66.0); PLATELET COUNT, AUTOMATED 200 10^3/uL (150-450); RED BLOOD COUNT 5.02 10^6/uL (4.00-5.40)
[2020-01-09 18:14] LABS: ALBUMIN 4.3 GM/DL (3.2-5.2); ALT/SGPT 20 U/L (12-78); BILIRUBIN,TOTAL 0.7 MG/DL (0.2-1.0); BLOOD UREA NITROGEN 7 MG/DL (7-18); CARBON DIOXIDE LEVEL 25 MEQ/L (21-32); CHLORIDE LEVEL 106 MEQ/L (98-107); CREATININE FOR GFR 0.88 MG/DL (0.55-1.30); GLOMERULAR FILTRATION RATE > 60.0 (>60); GLUCOSE, FASTING 122 MG/DL (70-100); POTASSIUM SERUM 4.5 MEQ/L (3.5-5.1); SODIUM LEVEL 136 MEQ/L (136-145); TOTAL PROTEIN 7.3 GM/DL (6.4-8.2)
[2020-01-09 18:17] LABS: HEMOGLOBIN A1c 5.3 %
[2020-01-09 19:29] LABS: APPEARANCE, URINE HAZY (CLEAR); BACTERIA, URINE AUTO NEGATIVE (NEGATIVE); BILIRUBIN, URINE AUTO NEGATIVE (NEGATIVE); BLOOD, URINE BLOOD 1+ (NEGATIVE); COLOR, URINE STRAW (YELLOW); GLUCOSE, URINE (UA) AUTO NEGATIVE (NEGATIVE); KETONE, URINE AUTO NEGATIVE (NEGATIVE); LEUKOCYTE ESTERASE, URINE AUTO TRACE (NEGATIVE); NITRITE, URINE AUTO NEGATIVE (NEGATIVE); PROTEIN, URINE AUTO NEGATIVE (NEGATIVE); RBC, URINE AUTO 1 /HPF (0-3); SPECIFIC GRAVITY URINE AUTO 1.004 (1.002-1.035); SQUAMOUS EPITHELIAL CELL UR AU 3 /HPF (0-6); UROBILINOGEN, URINE AUTO 0.2 mg/dL (0.0-2.0); WBC, URINE AUTO 2 /HPF (0-3)
== END ==
LOC: M SFHCPLAZ 14:18
PROVIDERS: ATTEND Physician Assistant Medical
DX: E66.9 Obesity, unspecified (principal); I82.461 Acute embolism and thrombosis of right calf muscular vein

== ENCOUNTER 2020-01-17 23:48 | Emergency (ER) | payer OTHER ==
[~2020-01-17] VITALS: Ht 165.1 cm; Wt 100.0 kg
[2020-01-17 23:48] VITALS: BP 121/66
[~2020-01-17 23:48] MED LIST changes: -ARIP1TAB10 PO; -ROBA750T4 PO; -ULTR50TA8 PO
[2020-01-18] MEDS ORDERED: ALPRAZolam 0.5 MG TAB PO ONE (01:00)
== END 2020-01-18 01:19 | disposition home or self-care (01) ==
LOC: M ED 23:48
DX: F41.9 Anxiety disorder, unspecified (principal)

== ENCOUNTER 2020-01-20 23:43 | Emergency (ER) | payer OTHER ==
[~2020-01-20] VITALS: Ht 165.1 cm; Wt 102.3 kg
[~2020-01-20 23:43] MED LIST changes: -ESCI10TA16 PO; +ESCI10TA2 PO; +ESCI20TA PO; -ESCI20TA16 PO; -METH-1164 PO; +METH1TAB40 PO; -QUET50TA3 PO; +QUET5TAB PO; -RISP-7 PO; +RISP0.5T3 PO
[2020-01-21 00:30] VITALS: BP 119/77
[2020-01-21] MEDS ORDERED: NS 1,000 ML IV ONE (00:30)
[2020-01-21] MEDS ORDERED: ONDANSETRON 4MG/2ML VIAL IV ONE (00:30)
[2020-01-21 00:46] LABS: BASO % 0.3 % (0.0-1.0); EOS # 0.1 10^3/uL (0.0-0.5); EOS % 1.4 % (0.0-3.0); HEMATOCRIT 40.6 % (36.0-47.0); LYMPH # 2.6 10^3/uL (1.5-5.0); LYMPH % 44.4 % (24.0-44.0); MEAN CORPUSCULAR HEMOGLOBIN 30.5 pg (27.0-33.0); MEAN CORPUSCULAR HGB CONC 34.5 g/dl (32.0-36.5); MEAN CORPUSCULAR VOLUME 88.5 fl (80.0-96.0); MONO # 0.3 10^3/uL (0.0-0.8); MONO % 5.3 % (0.0-5.0); NEUTROPHILS # 2.9 10^3/uL (1.5-8.5); NEUTROPHILS % 48.4 % (36.0-66.0); PLATELET COUNT, AUTOMATED 180 10^3/uL (150-450); RED BLOOD COUNT 4.59 10^6/uL (4.00-5.40); WHITE BLOOD COUNT 5.9 10^3/uL (4.0-10.0)
[2020-01-21 00:56] LABS: INR 0.97; PROTHROMBIN TIME 12.6 SECONDS (11.8-14.0)
[2020-01-21 00:57] LABS: PARTIAL THROMBOPLASTIN TIME 29.2 SECONDS (25.0-38.4)
[2020-01-21 01:12] LABS: ALBUMIN 3.6 GM/DL (3.2-5.2); ALT/SGPT 16 U/L (12-78); BILIRUBIN,DIRECT < 0.1 MG/DL (0.0-0.2); BILIRUBIN,TOTAL 0.2 MG/DL (0.2-1.0); LIPASE 109 U/L (73-393); TOTAL PROTEIN 6.7 GM/DL (6.4-8.2)
--- NOTE | 2020-01-21 01:14 | REPVR ---
PROCEDURE INFORMATION: Exam: CT Abdomen And Pelvis Without Contrast Exam date and time: 01/21/2020 1:00 AM Age: 40 years old Clinical indication: Abdominal pain; Flank; Left; Additional info: Left flank pain, hematuria TECHNIQUE: Imaging protocol: Computed tomography of the abdomen and pelvis without contrast. Axial, coronal and sagittal reformatted images were created and reviewed. Radiation optimization: All CT scans at this facility use at least one of these dose optimization techniques: automated exposure control; mA and/or kV adjustment per patient size (includes targeted exams where dose is matched to clinical indication); or iterative reconstruction. COMPARISON: CT ABD/PELVIS W/ & W/O CONTRAST - OUTSIDE PRIOR 03/31/2018 10:12 AM FINDINGS: Lungs: Mild peribronchial thickening, suggestive of airway inflammation. Liver: Mild hepatomegaly. Gallbladder and bile ducts: Contracted gallbladder without radiodense gallstones. Pancreas: Coarse calcifications in the pancreatic head, suggestive of chronic pancreatitis. Spleen: Unremarkable. Adrenals: Unchanged 1.2 cm low-density left adrenal nodule, compatible with a benign adenoma (no follow-up is indicated based on the imaging appearance). Kidneys and ureters: No mass. No radiodense calculi. No hydronephrosis. Stomach and bowel: Moderate amount of retained stool in the colon. No obstruction. No bowel wall thickening. No pneumatosis. Appendix: Normal. Intraperitoneal space: No free fluid. No organized fluid collection. No free air. Vasculature: IVC filter in place. No aortic aneurysm. Lymph nodes: No pathologically enlarged lymph nodes. Bladder: Unremarkable. Reproductive: Unremarkable. Bones/joints: No acute osseous abnormality. Soft tissues: Unremarkable. IMPRESSION: 1. Limited noncontrast examination without CT evidence of acute intra-abdominal or pelvic pathology. 2. Additional findings, as above. Electronically signed by: Sergio Graham On 01/21/2020 01:14:28 AM
[2020-01-21] MEDS: MORPHINE 4 MG/ML 1ML VIAL/SYRINGE (J2270) IV PRN ×2 (01:19→03:55)
[2020-01-21] MEDS ORDERED: ROBA750T4 PO (04:33)
[2020-01-21] MEDS ORDERED: methocarbamoL 750 MG TAB PO ONE (04:45)
[2020-01-21 05:57] LABS: CHLAMYDIA DNA AMPLIFICATION NEGATIVE (NEGATIVE); GC DNA AMPLIFICATION NEGATIVE (NEGATIVE)
== END 2020-01-21 04:47 | disposition home or self-care (01) ==
LOC: M ED 23:43 → EDBD 23:43 → M ED 01-21 04:47
DX: R10.9 Unspecified abdominal pain (principal); F41.1 Generalized anxiety disorder; D68.59 Other primary thrombophilia; F14.21 Cocaine dependence, in remission; Z72.0 Tobacco use; K59.00 Constipation, unspecified; E27.9 Disorder of adrenal gland, unspecified; K86.89 Other specified diseases of pancreas; Z79.01 Long term (current) use of anticoagulants; Z79.899 Other long term (current) drug therapy; Z88.0 Allergy status to penicillin; Z88.6 Allergy status to analgesic agent; Z88.8 Allergy status to other drugs, medicaments and biological substances; Z91.018 Allergy to other foods
CPT/HCPCS: 74176; 80047; 80076; 81001; 83690; 85025; 85610; 85730; 87661; 93041; 96361; 96374; 96375; 96376; 99284; J2270; J2405

== ENCOUNTER 2020-04-08 20:36 | Emergency (ER) | payer OTHER ==
[~2020-04-08] VITALS: Ht 165.1 cm; Wt 97.7 kg
[~2020-04-08 20:36] MED LIST changes: +ROBA750T4 PO
[2020-04-08] MEDS ORDERED: ARIP1TAB10 PO (21:01)
[2020-04-08 22:05] LABS: BASO % 0.4 % (0.0-1.0); EOS # 0.1 10^3/uL (0.0-0.5); EOS % 1.8 % (0.0-3.0); HEMATOCRIT 39.3 % (36.0-47.0); LYMPH # 1.8 10^3/uL (1.5-5.0); LYMPH % 36.1 % (24.0-44.0); MEAN CORPUSCULAR HEMOGLOBIN 31.9 pg (27.0-33.0); MEAN CORPUSCULAR HGB CONC 35.6 g/dl (32.0-36.5); MEAN CORPUSCULAR VOLUME 89.5 fl (80.0-96.0); MONO # 0.3 10^3/uL (0.0-0.8); MONO % 5.7 % (0.0-5.0); NEUTROPHILS # 2.8 10^3/uL (1.5-8.5); NEUTROPHILS % 55.8 % (36.0-66.0); PLATELET COUNT, AUTOMATED 191 10^3/uL (150-450); RED BLOOD COUNT 4.39 10^6/uL (4.00-5.40); WHITE BLOOD COUNT 5.1 10^3/uL (4.0-10.0)
[2020-04-08] MEDS ORDERED: traMADol 50 MG TAB PO ONE (22:15)
[2020-04-08 22:16] LABS: INR 0.98; PROTHROMBIN TIME 13.2 SECONDS (11.8-14.0)
[2020-04-08 22:17] LABS: PARTIAL THROMBOPLASTIN TIME 27.9 SECONDS (25.0-38.4)
--- NOTE | 2020-04-08 22:24 | REPVR ---
PROCEDURE INFORMATION: Exam: US Duplex Right Lower Extremity Veins, Limited Exam date and time: 04/08/2020 10:14 PM Age: 40 years old Clinical indication: Pain; Leg, upper and leg, lower; Right; Additional info: Rle pain R/O dvt TECHNIQUE: Imaging protocol: Real-time Duplex ultrasound of the Right Lower Extremity with 2-D gandhi scale, color Doppler flow and spectral waveform analysis with image documentation. Limited exam was focused on the right lower extremity veins. COMPARISON: US Duplex, Ext,LOWER veins,unilat RIGHT 10/20/2019 10:12 AM FINDINGS: Right deep veins: Nonocclusive thrombus demonstrated from the proximal femoral vein to the popliteal vein. Prior study demonstrated occlusive thrombus in these vessels suggesting finding represents early recanalization. Remaining deep vessels unremarkable. Right superficial veins: Unremarkable. Saphenofemoral junction is patent without thrombus. Soft tissues: Unremarkable. IMPRESSION: Nonocclusive thrombus demonstrated from the proximal femoral vein to the popliteal vein. Prior study demonstrated occlusive thrombus in these vessels suggesting finding represents early recanalization. Electronically signed by: Shan Rollins On 04/08/2020 22:24:33 PM
[2020-04-08 22:28] LABS: ALBUMIN 3.9 GM/DL (3.2-5.2); ALT/SGPT 19 U/L (12-78); BILIRUBIN,DIRECT < 0.1 MG/DL (0.0-0.2); BILIRUBIN,TOTAL 0.4 MG/DL (0.2-1.0); BLOOD UREA NITROGEN 7 MG/DL (7-18); CALCIUM LEVEL 8.3 MG/DL (8.5-10.1); CARBON DIOXIDE LEVEL 28 MEQ/L (21-32); CHLORIDE LEVEL 109 MEQ/L (98-107); CK-MB VALUE MASS < 1.0 NG/ML (<3.6); CPK CREATINE PHOSPHOKINASE 94 U/L (26-192); CREATININE FOR GFR 0.82 MG/DL (0.55-1.30); GLOMERULAR FILTRATION RATE > 60.0 (>58); GLUCOSE, FASTING 92 MG/DL (70-100); LIPASE 96 U/L (73-393); MB/CK RELATIVE INDEX 1.06 (< OR =4); POTASSIUM SERUM 3.9 MEQ/L (3.5-5.1); SODIUM LEVEL 139 MEQ/L (136-145); TOTAL PROTEIN 6.8 GM/DL (6.4-8.2); TROPONIN I < 0.02 NG/ML (< 0.10)
[2020-04-08] MEDS ORDERED: ISOVUE-370 76% 100ML VIAL As Ordered ONE (22:35)
--- NOTE | 2020-04-08 23:02 | REPVR ---
PROCEDURE INFORMATION: Exam: CT Angiography Chest With Contrast Exam date and time: 04/08/2020 10:51 PM Age: 40 years old Clinical indication: Chest pain; Additional info: R/O pe TECHNIQUE: Imaging protocol: Computed tomographic angiography of the chest with intravenous contrast. 3D rendering (Not supervised by radiologist): MIP and/or 3D reconstructed images were created by the technologist. Radiation optimization: All CT scans at this facility use at least one of these dose optimization techniques: automated exposure control; mA and/or kV adjustment per patient size (includes targeted exams where dose is matched to clinical indication); or iterative reconstruction. Contrast material: ISOVUE 370; Contrast volume: 75 ml; Contrast route: INTRAVENOUS (IV); COMPARISON: CT ANGIO CHEST 10/20/2019 11:59 AM FINDINGS: Pulmonary arteries: There are no pulmonary emboli. Aorta: There is no aortic dissection or aneurysm. Lungs: 3 mm noncalcified nodule left upper lobe likely postinflammatory. No follow-up suggested. Lungs otherwise clear. Pleural space: Unremarkable. No pneumothorax. No pleural effusion. Heart: Unremarkable. No cardiomegaly. No pericardial effusion. Lymph nodes: Unremarkable. No enlarged lymph nodes. Bones/joints: Unremarkable. No acute fracture. Soft tissues: Unremarkable. IMPRESSION: 1. There is no aortic dissection or aneurysm. 2. There are no pulmonary emboli. 3. No acute pulmonary parenchymal infiltrates. Electronically signed by: Shan Rollins On 04/08/2020 23:02:26 PM
[2020-04-08 23:16] VITALS: BP 103/55
--- NOTE | 2020-04-26 08:59 | ECGEPIP ---
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
== END 2020-04-08 23:51 | disposition home or self-care (01) ==
LOC: M ED 20:36
DX: I82.501 Chronic embolism and thrombosis of unspecified deep veins of right lower extremity (principal); R07.9 Chest pain, unspecified; Z86.718 Personal history of other venous thrombosis and embolism; Z86.711 Personal history of pulmonary embolism; Z95.828 Presence of other vascular implants and grafts; E11.9 Type 2 diabetes mellitus without complications; I10 Essential (primary) hypertension; M79.7 Fibromyalgia; M54.30 Sciatica, unspecified side; F32.9 Major depressive disorder, single episode, unspecified; F41.9 Anxiety disorder, unspecified; D68.51 Activated protein C resistance; F17.200 Nicotine dependence, unspecified, uncomplicated; Z79.01 Long term (current) use of anticoagulants; Z79.899 Other long term (current) drug therapy; Z88.0 Allergy status to penicillin; Z88.6 Allergy status to analgesic agent; Z88.1 Allergy status to other antibiotic agents; Z88.8 Allergy status to other drugs, medicaments and biological substances; Z91.018 Allergy to other foods
CPT/HCPCS: 71275; 80048; 80076; 82550; 82553; 83690; 85025; 85610; 85730; 93005; 93041; 93971; 94760; 99285; Q9967

== ENCOUNTER → 2020-04-10 | Outpatient (CLI) | payer OTHER ==
[~2020-04-10] MED LIST changes: +ARIP1TAB10 PO
--- NOTE | 2020-04-25 17:19 | REP ---
DIGITAL DIAGNOSTIC BILATERAL MAMMOGRAPHY WITH CAD, 3D TOMOGRAPHY AND FOCUSED OR TARGETED RIGHT BREAST ULTRASOUND: HISTORY: Right nipple cyst. The patient reports a nodule or cyst in the right nipple present times the last 2 weeks. She denies discharge. There is a positive family history of breast carcinoma in maternal grandmother and mother. COMPARISON: No comparison breast imaging. MAMMOGRAPHIC FINDINGS: Scattered fibroglandular elements are seen. Routine views of the right breast are augmented by magnified focal spot compression images. A skin marker is affixed to the nipple at the site of the nodule for two of the views. The nipples are not retracted on either side. No protruding mass or nodule is seen from the silhouette of either nipple mammographically. The subareolar tissue is unremarkable mammographically. No spiculated lesion, architectural distortion, microcalcification, mass or worrisome skin change is appreciated mammographically and no mammographically abnormality. SONOGRAPHIC FINDINGS: Targeted sonography is performed of the right nipple using Standoff Gel and the right subareolar soft tissues. There are 2 slightly hypoechoic subtle nodular areas within the right nipple. These measure 0.4 x 0.6 x0.3 cm and 0.4 x 0.3 x 0.3 cm. I do not see a contour abnormality in the edge of the nipple on any sonographic image. There is no lesion extending into or outward from the subareolar tissue visible sonographically. No other abnormality. IMPRESSION: BI-RADS category 0 incomplete evaluation. Two hypoechoic nodules are visible in the right nipple on sonography. The mammogram is negative. There may be a contribution role for breast MRI scanning and this should be considered. Small lesions within the nipple are usually benign. Abscess versus papilloma. Malignancy cannot be completely excluded. Biopsy may be warranted. Bilateral breast MRI study suggested. Patient letter M0. This patient's acoustic estimate of lifetime breast cancer risk is 19.5%. This study was read with the assistance of an FDA approved computer aided detection device. The patient reports her last clinical breast examination was more than one year ago. JACQUESD
== END ==
LOC: M WHC 07:24
PROVIDERS: ATTEND Family Medicine
DX: R92.8 Other abnormal and inconclusive findings on diagnostic imaging of breast (principal)
CPT/HCPCS: 76642; 77066; G0279

== ENCOUNTER → 2020-05-10 | Outpatient (CLI) | payer OTHER ==
[2020-05-10 14:32] LABS: BASO % 0.5 % (0.0-1.0); EOS # 0.1 10^3/uL (0.0-0.5); EOS % 1.2 % (0.0-3.0); HEMATOCRIT 43.1 % (36.0-47.0); HEMOGLOBIN 14.7 g/dl (12.0-15.5); LYMPH # 2.1 10^3/uL (1.5-5.0); LYMPH % 35.2 % (24.0-44.0); MEAN CORPUSCULAR HEMOGLOBIN 30.9 pg (27.0-33.0); MEAN CORPUSCULAR HGB CONC 34.1 g/dl (32.0-36.5); MEAN CORPUSCULAR VOLUME 90.5 fl (80.0-96.0); MONO # 0.4 10^3/uL (0.0-0.8); MONO % 5.9 % (0.0-5.0); NEUTROPHILS # 3.4 10^3/uL (1.5-8.5); NEUTROPHILS % 56.9 % (36.0-66.0); PLATELET COUNT, AUTOMATED 187 10^3/uL (150-450); RED BLOOD COUNT 4.76 10^6/uL (4.00-5.40)
[2020-05-10 15:10] LABS: HEMOGLOBIN A1c 5.1 %
[2020-05-10 15:12] LABS: ALBUMIN 3.8 GM/DL (3.2-5.2); ALT/SGPT 15 U/L (12-78); BILIRUBIN,TOTAL 0.5 MG/DL (0.2-1.0); BLOOD UREA NITROGEN 7 MG/DL (7-18); CALCIUM LEVEL 8.8 MG/DL (8.5-10.1); CARBON DIOXIDE LEVEL 27 MEQ/L (21-32); CHLORIDE LEVEL 107 MEQ/L (98-107); CHOLESTEROL LEVEL 214 MG/DL (<200); CHOLESTEROL RISK RATIO 5.944 (<5); CREATININE FOR GFR 0.86 MG/DL (0.55-1.30); FREE T4 1.08 NG/DL (0.76-1.46); GLOMERULAR FILTRATION RATE > 60.0 (>58); GLUCOSE, FASTING 96 MG/DL (70-100); HDL CHOLESTEROL 36 MG/DL (>40); LDL CHOLESTEROL 142 MG/DL (<100); NON-HDL-C 178 MG/DL; POTASSIUM SERUM 4.4 MEQ/L (3.5-5.1); SODIUM LEVEL 138 MEQ/L (136-145); TOTAL PROTEIN 6.7 GM/DL (6.4-8.2); TRIGLYCERIDES LEVEL 181 MG/DL (<150)
== END ==
LOC: M PLALAB 10:48
PROVIDERS: ATTEND Physician Assistant Medical
DX: E66.9 Obesity, unspecified (principal); F20.0 Paranoid schizophrenia; D68.61 Antiphospholipid syndrome; J45.30 Mild persistent asthma, uncomplicated; R16.1 Splenomegaly, not elsewhere classified; R73.9 Hyperglycemia, unspecified; J30.1 Allergic rhinitis due to pollen

== ENCOUNTER → 2020-05-27 | Outpatient (CLI) | payer OTHER ==
[~2020-05-27] MED LIST changes: +PROHANCE 279.3MG/ML 15ML VIAL As Ordered ONE; +PROHANCE 279.3MG/ML 5ML VIAL As Ordered ONE
--- NOTE | 2020-05-27 10:28 | REP ---
INDICATION: BREAST NODULE RIGHT FILE ROOM. COMPARISON: Mammogram and right breast ultrasound 04/10/2020. TECHNIQUE: Three Rasheeda MRI imaging was performed with a dedicated breast coil. Axial, coronal, and sagittal T1 and T2 weighted scans were obtained with and without fat saturation in the usual fashion. The study includes dynamically acquired post gadolinium-enhanced imaging with image subtraction. Maximum intensity projection and multi planar reformation imaging is included as well. This study is interpreted with the aid of [employer] The DoctorD, an FDA approved computer aided detection (CAD) software program, on a dedicated breast MRI workstation. The gadolinium enhancement dose is 20 mL of intravenous ProHance. FINDINGS: There is mild to moderate fibroglandular tissue scattered symmetrically bilaterally. There is moderate background parenchymal enhancement symmetrically bilaterally. Few tiny cysts are seen bilaterally. Largest on the right is at 12 o'clock in the mid 3rd of the right breast measuring approximately 7 mm in maximum diameter. Largest on the left is in the anterior upper outer quadrant and measures approximately the 11 mm in maximum diameter, oval in shape. No axillary adenopathy is seen. I see no suspicious enhancing mass or morphologic abnormality. On prior ultrasound of 04/10/2020, 2 subtle hypoechoic nodular areas were seen in the right nipple. On today's MRI there is a subtle 4 mm nodular structure in the medial aspect of the right nipple. It is hypointense on both T1 and T2 with a thin rim of hyperintensity on the T2 weighted images. Following the intravenous administration of gadolinium there is no central enhancement. There is thin rim enhancement which does not appear suspicious. No other nodule is seen. IMPRESSION: BI-RADS category 2 benign breast MRI. In the right nipple at the site of the prior ultrasound findings there is a 4 mm nodular structure or which is hypointense on both T1 and T2 centrally with no central enhancement. There is a thin rim of hyperintensity on T2 weighted images and there is thin rim enhancement of this structure. The imaging findings are benign, this likely represents a small complex cyst or benign solid nodule. <Electronically signed by Brad Atkins > 05/27/20 102
== END ==
LOC: M RAD 08:05
PROVIDERS: ATTEND Physician Assistant Medical
DX: N63.0 Unspecified lump in unspecified breast (principal)
CPT/HCPCS: A9576; C8908

== ENCOUNTER → 2020-06-18 | Outpatient (CLI) | payer OTHER ==
[~2020-06-18] MED LIST changes: -PROHANCE 279.3MG/ML 15ML VIAL As Ordered ONE; -PROHANCE 279.3MG/ML 5ML VIAL As Ordered ONE; +RISP-7 PO; -RISP0.5T3 PO
[2020-06-18 10:29] LABS: BASO % 0.6 % (0.0-1.0); EOS # 0.1 10^3/uL (0.0-0.5); EOS % 1.5 % (0.0-3.0); HEMATOCRIT 42.2 % (36.0-47.0); HEMOGLOBIN 14.3 g/dl (12.0-15.5); LYMPH # 2.5 10^3/uL (1.5-5.0); LYMPH % 36.4 % (24.0-44.0); MEAN CORPUSCULAR HEMOGLOBIN 30.5 pg (27.0-33.0); MEAN CORPUSCULAR HGB CONC 33.9 g/dl (32.0-36.5); MONO # 0.5 10^3/uL (0.0-0.8); MONO % 7.2 % (0.0-5.0); NEUTROPHILS # 3.7 10^3/uL (1.5-8.5); PLATELET COUNT, AUTOMATED 182 10^3/uL (150-450); RED BLOOD COUNT 4.69 10^6/uL (4.00-5.40); WHITE BLOOD COUNT 6.8 10^3/uL (4.0-10.0)
[2020-06-18 11:02] LABS: ALBUMIN 3.8 GM/DL (3.2-5.2); ALT/SGPT 18 U/L (12-78); BILIRUBIN,DIRECT 0.1 MG/DL (0.0-0.2); BILIRUBIN,TOTAL 0.5 MG/DL (0.2-1.0); BLOOD UREA NITROGEN 14 MG/DL (7-18); CALCIUM LEVEL 8.8 MG/DL (8.5-10.1); CARBON DIOXIDE LEVEL 27 MEQ/L (21-32); CHLORIDE LEVEL 106 MEQ/L (98-107); CHOLESTEROL LEVEL 234 MG/DL (<200); CREATININE FOR GFR 0.88 MG/DL (0.55-1.30); GLOMERULAR FILTRATION RATE > 60.0 (>58); GLUCOSE, FASTING 112 MG/DL (70-100); HDL CHOLESTEROL 36 MG/DL (>40); LDL CHOLESTEROL 152 MG/DL (<100); NON-HDL-C 198 MG/DL; PHOSPHORUS LEVEL 3.3 MG/DL (2.5-4.9); POTASSIUM SERUM 4.3 MEQ/L (3.5-5.1); SODIUM LEVEL 138 MEQ/L (136-145); TOTAL PROTEIN 6.8 GM/DL (6.4-8.2); TRIGLYCERIDES LEVEL 232 MG/DL (<150)
[2020-06-18 11:03] LABS: TOTAL 25(OH) VITAMIN D 22.6 NG/ML (30.0-100.0)
[2020-06-18 11:26] LABS: HEMOGLOBIN A1c 5.1 %
== END ==
LOC: M PLALAB 08:37
PROVIDERS: ATTEND Registered Nurse
DX: F20.9 Schizophrenia, unspecified (principal); Z51.81 Encounter for therapeutic drug level monitoring; Z13.9 Encounter for screening, unspecified; Z79.899 Other long term (current) drug therapy

== ENCOUNTER → 2020-07-04 | Outpatient (CLI) | payer OTHER ==
[~2020-07-04] MED LIST changes: +ULTR50TA8 PO
== END ==
LOC: M LABSMTC 11:15
PROVIDERS: ATTEND Anesthesiology
DX: Z01.812 Encounter for preprocedural laboratory examination (principal); Z20.828 Contact with and (suspected) exposure to other viral communicable diseases

== ENCOUNTER → 2020-07-05 | Outpatient (REF) | payer OTHER ==
[2020-07-05 13:02] LABS: HEMATOCRIT 43.4 % (36.0-47.0); HEMOGLOBIN 14.6 g/dl (12.0-15.5); MEAN CORPUSCULAR HEMOGLOBIN 29.9 pg (27.0-33.0); MEAN CORPUSCULAR HGB CONC 33.6 g/dl (32.0-36.5); MEAN CORPUSCULAR VOLUME 88.9 fl (80.0-96.0); PLATELET COUNT, AUTOMATED 190 10^3/uL (150-450); RED BLOOD COUNT 4.88 10^6/uL (4.00-5.40); WHITE BLOOD COUNT 5.3 10^3/uL (4.0-10.0)
[2020-07-05 13:21] LABS: BLOOD UREA NITROGEN 6 MG/DL (7-18); CALCIUM LEVEL 9.2 MG/DL (8.5-10.1); CARBON DIOXIDE LEVEL 28 MEQ/L (21-32); CHLORIDE LEVEL 107 MEQ/L (98-107); CREATININE FOR GFR 0.91 MG/DL (0.55-1.30); GLOMERULAR FILTRATION RATE > 60.0 (>58); GLUCOSE, FASTING 140 MG/DL (70-100); POTASSIUM SERUM 3.9 MEQ/L (3.5-5.1); SODIUM LEVEL 138 MEQ/L (136-145)
== END ==
LOC: M SFHCPLAZ 11:28
PROVIDERS: ATTEND Family Medicine
DX: Z01.818 Encounter for other preprocedural examination (principal)

== ENCOUNTER → 2020-07-05 | Outpatient (CLI) | payer OTHER ==
--- NOTE | 2020-07-05 14:03 | REPPI ---
INDICATION: PRE OP. COMPARISON: June 26, 2019. TECHNIQUE: Two views.. FINDINGS: The lungs are well inflated and free of infiltrate. The pleural angles are sharp. The heart size is normal. Pulmonary vasculature is not increased. No significant bony abnormality is seen. IMPRESSION: Negative chest x-ray. <Electronically signed by Fernando Riggins > 07/05/20 [id number]
== END ==
LOC: M PLAIMG 11:28
PROVIDERS: ATTEND Family Medicine
DX: Z01.818 Encounter for other preprocedural examination (principal); J45.30 Mild persistent asthma, uncomplicated

== ENCOUNTER 2020-07-09 08:02 | Day surgery (SDC) | payer OTHER ==
[~2020-07-09] VITALS: Ht 167.6 cm; Wt 104.3 kg
[~2020-07-09 08:02] MED LIST changes: +CLINDAMYCIN 900 MG in IV 1 EA IV ONE; +HEPARIN SOD (PORCINE) 5000UNITS/ML 1ML VIAL/SYRINGE SQ ONE; +LIDOCAINE 1% MDV 20ML VIAL SQ PRN; +LR 1,000 ML IV ONE; +NS 1,000 ML IV SCH; -ULTR50TA8 PO
[2020-07-09] MEDS ORDERED: dexameTHASONE 4 MG/ML 1ML VIAL (J1100 PER 1MG) As Ordered ONE (08:20)
[2020-07-09] MEDS ORDERED: LIDOCAINE 2% 100MG/5ML SDV (FOR ANES.) As Ordered ONE (08:20)
[2020-07-09] MEDS ORDERED: propofoL 200 MG/20 ML VIAL As Ordered ONE (08:20)
[2020-07-09] MEDS ORDERED: ONDANSETRON 4MG/2ML VIAL As Ordered ONE (08:20)
[2020-07-09] MEDS ORDERED: fentaNYL 100 MCG/2 ML INJECTION (J3010) As Ordered ONE ×2 (08:21→10:16)
[2020-07-09] MEDS ORDERED: MIDAZOLAM INJ 2MG/2ML VIAL (J2250 PER 1MG) As Ordered ONE (08:21)
[2020-07-09] MEDS ORDERED: BUPIVACAINE HCL 0.25% 30ML VIAL As Ordered ONE (08:49)
[2020-07-09] MEDS ORDERED: LIDOCAINE 1% SDV 30ML VIAL As Ordered ONE (08:49)
[2020-07-09] MEDS ORDERED: SCOPOLAMINE 1MG TRANSDERMAL PATCH TOP ONE (09:00)
[2020-07-09] MEDS ORDERED: ePHEDrine SULFATE 25 MG/5 ML(5MG/ML) SYRINGE As Ordered ONE (09:43)
[2020-07-09] MEDS ORDERED: ULTR50TA8 PO (10:25)
[2020-07-09] MEDS ORDERED: fentaNYL 100 MCG/2 ML INJECTION (J3010) IV PRN (11:00)
[2020-07-09] MEDS ORDERED: METOCLOPRAMIDE INJ 10MG/2ML VIAL (J2765 PER 1) IV PRN (11:00)
[2020-07-09] MEDS ORDERED: MEPERIDINE INJ 25 MG/ML VIAL (J2175) IV PRN (11:00)
[2020-07-09] MEDS ORDERED: ONDANSETRON 4MG/2ML VIAL IV PRN (11:00)
[2020-07-09] MEDS ORDERED: HYDROMORPHONE HCL 0.5 MG/ 0.5 ML SYRINGE (J1170 PER 1) IV PRN (11:00)
[2020-07-09] MEDS ORDERED: LR 1,000 ML IV SCH (11:00)
[2020-07-09 12:05] VITALS: BP 139/87
--- NOTE | 2020-07-11 14:14 | ROOPDOC ---
[facility] Report Of Operation Report of Operation DATE OF PROCEDURE: 07/09/20 PREPROCEDURE DIAGNOSES: Right nipple and right areolar abnormality. POSTPROCEDURE DIAGNOSES: same PROCEDURE: excisional biopsy of the right nipple and right areolar abnormality SURGEON: Melinda Rodriguez ANESTHESIA: general ESTIMATED BLOOD LOSS: Approximately 5 mL. COMPLICATIONS: none REMARKS: nipple nodule contained caseous material DESCRIPTION OF PROCEDURE: INDICATIONS: Ms. Garcia is a 40-year-old woman who presented with painful right nipple nodule and right areolar nodule. The complaint was evaluated with diagnostic imaging which did not show suspicious lesions. Due to pain, patient was offered excisional biopsy of right nipple nodule and right areolar nodule. Since she is on Eliquis and would not be able to tolerated the procedure in the office, the procedure was scheduled in the operating room. She was medically cleared for surgery by her primary care doctor. Risks and possible complications of surgical procedure including bleeding, infection and injury to surrounding structures were explained to the patient and she wished to proceed. Consent was signed. My initials were placed on the operative site. Right nipple nodule and right areolar nodule were marked by me and confirmed by patient preoperatively. Subcutaneous injection of 5000 units of heparin was done in intraop. DETAILS: Patient was taken to the operating room and placed on the operating room table. A sign in was called stating patients name, date of and the procedure to be done. Preoperative antibiotics were infused. Smooth induction of general anesthesia was done. Patients hands were extended on arm rests. Care was taken not to over extend the arms. Pillow was placed under the knees and a foam was placed under the heels. Sequential compression devices were placed and assured to function correctly. Next, patients right breast was prepped and draped in the usual fashion. Appropriate time out was done. Patients name, date of , and the procedure to be done were confirmed. At this time, a nipple block was done using local anesthetic using 1% lidocaine and 0.25 % Marcaine 50/50 mix. Procedure was started with excisional biopsy of the nodule in the right areola located medial to the nipple. Small elliptical incision was made with scalpel number 15. The incision was carried to subcutaneous tissues. The nodule was not entered. The specimen was labeled with patients name and right areolar excisional biopsy and sent to pathology unoriented due to very small size. Adequate hemostasis was assured. Wound was irrigated and additional local anesthetic was injected. The wound was approximated with the 3-0 Monocryl interrupted stitches. Dermabond glue was applied to the incision site at the end of the procedure. Next, my attention was turned toward the right nipple nodule. An elliptical small incision was made to incorporate the nodule. Dissection was carried into the subcutaneous tissue to allow excision of the nodule and to minimize excision of nipple tissue. Upon rotation of the nodule, the capsule was ruptured at one small area and caseous material came out. Leak was minimal and the nodule with its content was successfully excised as a whole. This specimen was called right nipple excisional biopsy and was sent to pathology after being labeled with patients information. At this time, the wound was irrigated thoroughly and adequate hemostasis was assured. Additional local anesthetic was injected into surrounding tissues. The nipple defect was repaired with 3-0 Monocryl in the interrupted fashion. The nipple edges were approximated with 5-0 Chromic suture. Dermabond glue was then placed over the incision. Patient emerged from the anesthesia without any problems. Fluffs were placed over the operative site and patients chest was wrapped snuggly in the SAMPSON wrap. Sponge and instrument counts were done and were correct. Patient tolerated procedure well and was taken to recovery unit in stable cond ition. MELINDA VENTURA DO Jul 11, 2020 14:14
== END 2020-07-09 12:09 | disposition home or self-care (01) ==
LOC: M SDC 08:02
PROVIDERS: ATTEND Surgery
DX: N60.01 Solitary cyst of right breast (principal); N64.89 Other specified disorders of breast; D68.51 Activated protein C resistance; D68.61 Antiphospholipid syndrome; E78.00 Pure hypercholesterolemia, unspecified; F17.210 Nicotine dependence, cigarettes, uncomplicated; F20.0 Paranoid schizophrenia; F32.9 Major depressive disorder, single episode, unspecified; F41.9 Anxiety disorder, unspecified; F43.10 Post-traumatic stress disorder, unspecified; G47.33 Obstructive sleep apnea (adult) (pediatric); I49.9 Cardiac arrhythmia, unspecified; J44.9 Chronic obstructive pulmonary disease, unspecified; J45.30 Mild persistent asthma, uncomplicated; N60.02 Solitary cyst of left breast; R01.1 Cardiac murmur, unspecified; Z79.01 Long term (current) use of anticoagulants; Z85.41 Personal history of malignant neoplasm of cervix uteri; Z86.711 Personal history of pulmonary embolism; Z86.718 Personal history of other venous thrombosis and embolism; Z91.89 Other specified personal risk factors, not elsewhere classified; Z92.21 Personal history of antineoplastic chemotherapy; Z92.3 Personal history of irradiation; Z98.51 Tubal ligation status
CPT/HCPCS: 11042; 36415; 81025; 86850; 86900; 86901; 88305; J1100; J1644; J2250; J2405; J3010

== ENCOUNTER 2020-07-20 23:29 | Emergency (ER) | payer OTHER ==
[~2020-07-20] VITALS: Ht 165.1 cm; Wt 109.1 kg
[~2020-07-20 23:29] MED LIST changes: -CLINDAMYCIN 900 MG in IV 1 EA IV ONE; -HEPARIN SOD (PORCINE) 5000UNITS/ML 1ML VIAL/SYRINGE SQ ONE; -LIDOCAINE 1% MDV 20ML VIAL SQ PRN; -LR 1,000 ML IV ONE; -NS 1,000 ML IV SCH; +ULTR50TA8 PO
[2020-07-21 01:15] VITALS: BP 105/77
[2020-07-21] MEDS ORDERED: TRAM50TA2 PO (02:04)
[2020-07-21] MEDS ORDERED: ULTR50TA8 PO (02:06)
[2020-07-21] MEDS ORDERED: traMADol 50 MG TAB (BULK 4 TAB ED) PO ONE (02:15)
[2020-07-21] MEDS ORDERED: LIDOCAINE 5% (LIDODERM) PATCH TD ONE (02:15)
[2020-07-21] MEDS ORDERED: **NOTE PATIENT COMMENT** MISC XX SCH (21:00)
== END 2020-07-21 02:28 | disposition home or self-care (01) ==
LOC: M ED 23:29
DX: G89.18 Other acute postprocedural pain (principal); J45.909 Unspecified asthma, uncomplicated; Z86.711 Personal history of pulmonary embolism; Z86.718 Personal history of other venous thrombosis and embolism; F17.200 Nicotine dependence, unspecified, uncomplicated; Z79.01 Long term (current) use of anticoagulants; Z79.899 Other long term (current) drug therapy; Z88.0 Allergy status to penicillin; Z88.6 Allergy status to analgesic agent; Z88.5 Allergy status to narcotic agent; Z88.8 Allergy status to other drugs, medicaments and biological substances

== ENCOUNTER → 2020-09-23 | Outpatient (REF) | payer OTHER ==
[~2020-09-23] MED LIST changes: +ESCI10TA16 PO; -ESCI10TA2 PO; -ESCI20TA PO; +ESCI20TA16 PO; +METH-1164 PO; -METH1TAB40 PO; +QUET50TA3 PO; -QUET5TAB PO
== END ==
LOC: M SFHCPLAZ 13:01
PROVIDERS: ATTEND Physician Assistant Medical
DX: J06.9 Acute upper respiratory infection, unspecified (principal)

== ENCOUNTER → 2020-09-24 | Outpatient (REF) | payer OTHER ==
[2020-09-24 15:28] LABS: APPEARANCE, URINE CLEAR (CLEAR); BACTERIA, URINE AUTO 1+ (NEGATIVE); BILIRUBIN, URINE AUTO NEGATIVE (NEGATIVE); BLOOD, URINE BLOOD 1+ (NEGATIVE); COLOR, URINE YELLOW (YELLOW); GLUCOSE, URINE (UA) AUTO NEGATIVE (NEGATIVE); KETONE, URINE AUTO NEGATIVE (NEGATIVE); LEUKOCYTE ESTERASE, URINE AUTO NEGATIVE (NEGATIVE); MUCUS, URINE SMALL (NEGATIVE); NITRITE, URINE AUTO NEGATIVE (NEGATIVE); PROTEIN, URINE AUTO NEGATIVE (NEGATIVE); RBC, URINE AUTO 2 /HPF (0-3); SPECIFIC GRAVITY URINE AUTO 1.006 (1.002-1.035); SQUAMOUS EPITHELIAL CELL UR AU 3 /HPF (0-6); UROBILINOGEN, URINE AUTO 0.2 mg/dL (0.0-2.0); WBC, URINE AUTO 1 /HPF (0-3)
== END ==
LOC: M SFHCPLAZ 14:32
PROVIDERS: ATTEND Physician Assistant Medical
DX: R30.0 Dysuria (principal)

== ENCOUNTER → 2020-10-09 | Outpatient (REF) | payer OTHER ==
[2020-10-09 13:36] LABS: HEMATOCRIT 43.4 % (36.0-47.0); HEMOGLOBIN 14.8 g/dl (12.0-15.5); MEAN CORPUSCULAR HEMOGLOBIN 30.3 pg (27.0-33.0); MEAN CORPUSCULAR HGB CONC 34.1 g/dl (32.0-36.5); MEAN CORPUSCULAR VOLUME 88.8 fl (80.0-96.0); PLATELET COUNT, AUTOMATED 193 10^3/uL (150-450); RED BLOOD COUNT 4.89 10^6/uL (4.00-5.40); WHITE BLOOD COUNT 5.7 10^3/uL (4.0-10.0)
[2020-10-09 14:43] LABS: FREE T4 1.05 NG/DL (0.76-1.46); THYROID STIMULATING HORMONE 1.68 uIU/ML (0.358-3.740)
== END ==
LOC: M PLALAB 11:08
PROVIDERS: ATTEND Advanced Practice Midwife
DX: N92.1 Excessive and frequent menstruation with irregular cycle (principal); Z11.3 Encounter for screening for infections with a predominantly sexual mode of transmission

== ENCOUNTER → 2020-11-04 | Outpatient (CLI) | payer OTHER ==
--- NOTE | 2020-11-04 10:27 | REP ---
INDICATION: N92.1 MENORRHAGIA WITH IRREGULAR CYCLE COMPARISON: 02/13/2018 TECHNIQUE: Transabdominal pelvic ultrasound with color Doppler evaluation of the ovaries. FINDINGS: Bladder is unremarkable and measures 11.7 x 10.0 x 5.8 cm (355 cc). Heterogeneous anteverted uterus measures 11.8 x 5.1 x 6.1 cm. The endometrial complex measures 6.4 mm thickness. No discrete uterine or endometrial abnormalities are appreciated. Bilateral ovaries are normal in appearance and vascularity without evidence for torsion. Right ovary measures 3.4 x 1.8 x 1.8 cm; R I = 0.45. Left ovary measures 5.8 x 4.1 x 3.5 cm with 4.1 cm septated presumed physiologic cyst; R I = 0.51. No pelvic fluid or adnexal mass lesion IMPRESSION: 1. Mildly enlarged heterogeneous uterus without discrete abnormality. 2. 4.1 cm septated left renal cyst likely physiologic. Consider follow-up examination in 4-6 weeks if the patient remains symptomatic. <Electronically signed by Miguel Merida > 11/04/20 1020
== END ==
LOC: M WHC 08:27
PROVIDERS: ATTEND Advanced Practice Midwife
DX: N92.1 Excessive and frequent menstruation with irregular cycle (principal); N83.202 Unspecified ovarian cyst, left side; N85.2 Hypertrophy of uterus

== ENCOUNTER → 2020-11-08 | Outpatient (REF) | payer OTHER | LOC: M SFHCWAGY 12:54 | PROVIDERS: ATTEND Advanced Practice Midwife | DX: N92.1 Excessive and frequent menstruation with irregular cycle (principal) ==

== ENCOUNTER 2020-11-23 21:30 | Emergency (ER) | payer OTHER ==
[2020-11-23] MEDS ORDERED: LIDOCAINE 5% (LIDODERM) PATCH TD ONE (21:50)
[2020-11-23] MEDS ORDERED: HYDR-3363 (21:53)
--- NOTE | 2020-11-23 22:38 | REPVR ---
PROCEDURE INFORMATION: Exam: XR Right Ribs with PA Chest Exam date and time: 11/23/2020 10:12 PM Age: 40 years old Clinical indication: Other: Right lateral rib pain TECHNIQUE: Imaging protocol: XR Right ribs with PA chest. Views: 3 views COMPARISON: CT ANGIO CHEST 04/08/2020 10:38 PM FINDINGS: Lungs: There is mild streaky appearance of the right infrahilar region and possibly atelectasis and infiltrate. Pleural spaces: There is no evidence of pneumothorax or pleural effusion. Heart/Mediastinum: The heart is normal in size. Bones/joints: There is no evidence of fracture. IMPRESSION: No evidence of fracture. Mild infiltrate atelectasis right lung base. Electronically signed by: Collin Merchant On 11/23/2020 22:37:43 PM
[2020-11-23] MEDS ORDERED: AZITHROMYCIN 250MG TABLET PO ONE (22:45)
[2020-11-23] MEDS ORDERED: AZIT500T5 PO (22:58)
[2020-11-23] MEDS ORDERED: TESS100C PO (22:58)
[2020-11-23] MEDS ORDERED: LIDO5DIS41 TOP (22:58)
[2020-11-23 23:02] VITALS: BP 124/72
[2020-11-24] MEDS ORDERED: **NOTE PATIENT COMMENT** MISC XX SCH (21:00)
== END 2020-11-23 23:02 | disposition home or self-care (01) ==
LOC: M ED 21:30
DX: J18.9 Pneumonia, unspecified organism (principal); R07.81 Pleurodynia; E11.9 Type 2 diabetes mellitus without complications; J44.9 Chronic obstructive pulmonary disease, unspecified; F43.10 Post-traumatic stress disorder, unspecified; F20.9 Schizophrenia, unspecified; F17.200 Nicotine dependence, unspecified, uncomplicated; Z79.01 Long term (current) use of anticoagulants; Z79.899 Other long term (current) drug therapy; Z88.0 Allergy status to penicillin; Z88.6 Allergy status to analgesic agent; Z88.2 Allergy status to sulfonamides

== ENCOUNTER 2020-12-13 14:35 | Emergency (ER) | payer OTHER ==
[~2020-12-13] VITALS: Ht 165.1 cm; Wt 107.8 kg
[2020-12-13 14:35] VITALS: BP 126/77
[~2020-12-13 14:35] MED LIST changes: +ATOR1TAB21 PO; +AZIT500T5 PO; +GABA-283 PO; -GABA-845 PO; +HYDR-3363; +LIDO5DIS41 TOP
== END 2020-12-13 16:10 | disposition left against medical advice (07) ==
LOC: M ED 14:35
DX: Z53.21 Procedure and treatment not carried out due to patient leaving prior to being seen by health care provider (principal)

== ENCOUNTER 2020-12-15 00:48 | Emergency (ER) | payer OTHER ==
[~2020-12-15] VITALS: Ht 165.1 cm; Wt 108.4 kg
[2020-12-15] MEDS ORDERED: MORPHINE 4 MG/ML 1ML VIAL/SYRINGE (J2270) IV ONE (01:50)
[2020-12-15] MEDS ORDERED: NS 1,000 ML IV ONE (01:50)
[2020-12-15] MEDS ORDERED: MORPHINE 2 MG/ML 1ML VIAL (J2270) IV ONE (01:50)
[2020-12-15 02:42] LABS: BASO % 0.4 % (0.0-1.0); EOS # 0.1 10^3/uL (0.0-0.5); EOS % 1.4 % (0.0-3.0); HEMATOCRIT 39.5 % (36.0-47.0); HEMOGLOBIN 13.8 g/dl (12.0-15.5); LYMPH # 2.6 10^3/uL (1.5-5.0); LYMPH % 35.1 % (24.0-44.0); MEAN CORPUSCULAR HEMOGLOBIN 31.1 pg (27.0-33.0); MEAN CORPUSCULAR HGB CONC 34.9 g/dl (32.0-36.5); MONO # 0.4 10^3/uL (0.0-0.8); NEUTROPHILS # 4.2 10^3/uL (1.5-8.5); NEUTROPHILS % 56.8 % (36.0-66.0); PLATELET COUNT, AUTOMATED 199 10^3/uL (150-450); RED BLOOD COUNT 4.44 10^6/uL (4.00-5.40); WHITE BLOOD COUNT 7.3 10^3/uL (4.0-10.0)
[2020-12-15 03:11] LABS: ALBUMIN 3.6 GM/DL (3.2-5.2); ALT/SGPT 16 U/L (12-78); BILIRUBIN,DIRECT < 0.1 MG/DL (0.0-0.2); BILIRUBIN,TOTAL 0.3 MG/DL (0.2-1.0); BLOOD UREA NITROGEN 12 MG/DL (7-18); CALCIUM LEVEL 8.4 MG/DL (8.5-10.1); CARBON DIOXIDE LEVEL 25 MEQ/L (21-32); CHLORIDE LEVEL 110 MEQ/L (98-107); CREATININE FOR GFR 0.84 MG/DL (0.55-1.30); GLOMERULAR FILTRATION RATE > 60.0 (>58); GLUCOSE, FASTING 98 MG/DL (70-100); LIPASE 104 U/L (73-393); POTASSIUM SERUM 3.7 MEQ/L (3.5-5.1); SODIUM LEVEL 140 MEQ/L (136-145); TOTAL PROTEIN 6.7 GM/DL (6.4-8.2)
[2020-12-15] MEDS ORDERED: ISOVUE-370 76% 100ML VIAL As Ordered ONE (03:43)
[2020-12-15] MEDS: GASTROGRAFIN SOLUTION 30ML PO SCH ×2 (03:54→04:20)
--- NOTE | 2020-12-15 04:37 | REPVR ---
PROCEDURE INFORMATION: Exam: US Duplex Artery or Vein of the Abdominal and/or Reproductive Organs, Limited Ovaries Exam date and time: 12/15/2020 2:35 AM Age: 40 years old Clinical indication: Pelvic pain; Patient HX: Dx'ed with cervical cancer 3 weeks ago, prior c section TECHNIQUE: Imaging protocol: Real-time duplex ultrasound scan of the arterial or venous flow with gandhi scale, color Doppler flow and spectral waveform analysis with image documentation. Limited duplex exam focused on the ovaries. Duplex images required to evaluate for torsion and other vascular conditions. COMPARISON: PELVIS NON-OB COMPLETE US 11/04/2020 9:38 AM FINDINGS: Right adnexa: Normal duplex of the ovary. Normal Doppler waveforms and color flow. No evidence of ovarian torsion. Peak systolic velocity of 9.4 cm/s with resistive index of 0.64 is noted to the right ovary. Left adnexa: Normal duplex of the ovary. Normal Doppler waveforms and color flow. No evidence of ovarian torsion. Peak systolic velocity of 7.4 cm/s with resistive index of 0.65 is noted the left ovary. IMPRESSION: No evidence of right or left ovarian torsion. PROCEDURE INFORMATION: Exam: US Pelvis Complete, Transabdominal and US Pelvis, Transvaginal Exam date and time: 12/15/2020 2:35 AM Age: 40 years old Clinical indication: Pelvic pain; Patient HX: Dx'ed with cervical cancer 3 weeks ago, prior c section TECHNIQUE: Imaging protocol: Real-time transabdominal and transvaginal pelvic ultrasound (complete) with image documentation. Transvaginal imaging was used for better evaluation of the endometrium, adnexa, and/or cervix. COMPARISON: PELVIS NON-OB COMPLETE US 11/04/2020 9:38 AM FINDINGS: Uterus/cervix: The uterus is anteverted measuring 10.7 x 7.6 x 5.1 centimetres. The uterine parenchyma is heterogeneous with a scar in the lower anterior uterine segment. The uterus contains 2 small intramural mildly hypoechoic lesions , 1st in the right uterine fundus posteriorly measuring 0.8 x 1.0 x 0.8 cm and the 2nd is in the lower uterine segment measuring 1.0 x 0.7 x 0.6 cm. There is a complex cystic structure in the anterior lower uterine segment measuring 1.0 x 0.5 x 0.7 centimetres. Multiple cervical nabothian cyst seen the largest measures 1.0 x 0.7 x 0.6 cm. The endometrium is normal in thickness measuring 7 mm. Right adnexa: The right ovary measures 4.3 x 2.4 x 3.2 cm containing a 2.1 x 2.0 x 1.8 cm hypoechoic lesion with internal echoes and thick vascular rim. Left adnexa: The left ovary measures 4.4 x 2.0 x 2.7 cm containing a 2.6 x 1.5 x 1.5 cm hypoechoic cyst. Intraperitoneal space: No intraperitoneal fluid. Urinary bladder: Normal. IMPRESSION: 1. Heterogeneous uterus with a see scar at the anterior lower uterine segment containing small hypoechoic lesions statistically likely fibroids. 2. Unremarkable ultrasound of the endometrium. 3. Cervical nabothian cysts some are complex with low-level internal echoes which could be secondary to internal blood products or super infection. 4. 2.1 x 2.0 x 1.8 cm complex right ovarian cyst possibly hemorrhagic cyst in addition to a 2.6 x 1.5 x 1.5 cm left ovarian follicular cyst. Electronically signed by: New Smalls On 12/15/2020 04:36:47 AM
--- NOTE | 2020-12-15 05:33 | REPVR ---
PROCEDURE INFORMATION: Exam: CT Abdomen And Pelvis With Contrast Exam date and time: 12/15/2020 5:18 AM Age: 40 years old Clinical indication: Abdominal pain; Localized; Right lower quadrant (rlq); Additional info: Rlq/pelvic pain TECHNIQUE: Imaging protocol: Computed tomography of the abdomen and pelvis with contrast. Radiation optimization: All CT scans at this facility use at least one of these dose optimization techniques: automated exposure control; mA and/or kV adjustment per patient size (includes targeted exams where dose is matched to clinical indication); or iterative reconstruction. Contrast material: ISOVUE 370; Contrast volume: 100 ml; Contrast route: INTRAVENOUS (IV); Other contrast: Oral, gastrographin; COMPARISON: CT ABD PELVIS W/O CONTRAST 01/21/2020 12:47 AM FINDINGS: Lungs: Atelectatic changes versus scarring seen in the right middle lobe and lingula. Liver: Normal. No mass. Gallbladder and bile ducts: Normal. No calcified stones. No ductal dilation. Pancreas: Multiple small calcifications seen in the pancreatic uncinate process. Spleen: The spleen is enlarged measuring up to 16.2 cm in maximum dimensions. Adrenal glands: There is 1.5 cm left adrenal gland nodule on series 201, image 36 . Kidneys and ureters: Normal. No hydronephrosis. Stomach and bowel: There is questionable mild thickening of the right colon. Appendix: No evidence of appendicitis. Intraperitoneal space: Unremarkable. No free air. No significant fluid collection. Vasculature: Unremarkable. No abdominal aortic aneurysm. Lymph nodes: There is suggestion of some small bowel fold thickening coupled with some shotty lymph nodes. Urinary bladder: Unremarkable as visualized. Reproductive: There is 2.2 cm left ovarian cyst. There is a 2 cm right ovarian cyst with mild enhancing rim. There is a nonspecific 1 cm cyst in the anterior lower uterine segment. Bones/joints: IVC filter seen with its tip at L1 vertebral body. Soft tissues: Unremarkable. IMPRESSION: 1. No CT evidence of acute appendicitis. 2. Questionable thickening of some small bowel folds in addition to questionable mild thickening of the right colonic wall coupled with shotty small mesenteric lymph nodes. Correlate clinically for mild enterocolitis. 3. Bilateral ovarian cysts with the right ovarian cyst likely hemorrhagic. Additionally seen is a small complex anterior lower uterine segment cyst measuring 1 cm. This could be the sequela of . These were seen on ultrasound performed earlier. Follow-up with of the lower uterine segment cyst with ultrasound is suggested in few months. 4. IVC filter in place. 5. Multiple small calcifications in the pancreatic uncinate process likely the sequela of old pancreatitis or chronic pancreatitis. Correlate with clinical history and symptoms. If further evaluation of the pancreas is warranted, MRI may be considered on a nonemergent basis. COMMENTS: For patients with an IVC filter, recommend assessment for a management plan for the patient's IVC filter. If there is no established management plan, recommend referral to an interventional clinician on a nonemergent basis for evaluation. Electronically signed by: New Smalls On 12/15/2020 05:33:03 AM
[2020-12-15] MEDS ORDERED: TYLE650T38 PO (05:44)
[2020-12-15 06:37] VITALS: BP 116/61
[2020-12-15] MEDS ORDERED: OXYC-517 PO (06:38)
== END 2020-12-15 06:40 | disposition home or self-care (01) ==
LOC: M ED 00:48
DX: N83.201 Unspecified ovarian cyst, right side (principal)
CPT/HCPCS: 74177; 76830; 76856; 80048; 80076; 81001; 83690; 85025; 93976; 96374; 99284; J2270; Q9963; Q9967

== ENCOUNTER → 2020-12-22 | Outpatient (CLI) | payer OTHER ==
[~2020-12-22] MED LIST changes: +OXYC-517 PO; +TYLE650T38 PO
== END ==
LOC: M LABSMTC 08:02
PROVIDERS: ATTEND Anesthesiology
DX: Z01.812 Encounter for preprocedural laboratory examination (principal); Z20.822 Contact with and (suspected) exposure to COVID-19

== ENCOUNTER 2020-12-24 19:28 | Emergency (ER) | payer OTHER ==
[~2020-12-24] VITALS: Ht 165.1 cm; Wt 107.3 kg
[2020-12-24] MEDS ORDERED: DICYCLOMINE INJ 20MG/2ML (J0500) IM ONE (21:00)
[2020-12-24 21:41] LABS: BASO % 0.5 % (0.0-1.0); EOS # 0.1 10^3/uL (0.0-0.5); EOS % 1.2 % (0.0-3.0); HEMATOCRIT 39.4 % (36.0-47.0); HEMOGLOBIN 13.8 g/dl (12.0-15.5); LYMPH # 2.1 10^3/uL (1.5-5.0); LYMPH % 35.5 % (24.0-44.0); MEAN CORPUSCULAR HEMOGLOBIN 30.7 pg (27.0-33.0); MEAN CORPUSCULAR VOLUME 87.8 fl (80.0-96.0); MONO # 0.4 10^3/uL (0.0-0.8); NEUTROPHILS # 3.4 10^3/uL (1.5-8.5); NEUTROPHILS % 56.6 % (36.0-66.0); PLATELET COUNT, AUTOMATED 185 10^3/uL (150-450); RED BLOOD COUNT 4.49 10^6/uL (4.00-5.40)
[2020-12-24 22:12] LABS: ALBUMIN 3.6 GM/DL (3.2-5.2); ALT/SGPT 17 U/L (12-78); BILIRUBIN,DIRECT 0.1 MG/DL (0.0-0.2); BILIRUBIN,TOTAL 0.6 MG/DL (0.2-1.0); BLOOD UREA NITROGEN 6 MG/DL (7-18); CALCIUM LEVEL 8.3 MG/DL (8.5-10.1); CARBON DIOXIDE LEVEL 26 MEQ/L (21-32); CHLORIDE LEVEL 109 MEQ/L (98-107); CREATININE FOR GFR 0.85 MG/DL (0.55-1.30); GLOMERULAR FILTRATION RATE > 60.0 (>58); GLUCOSE, FASTING 111 MG/DL (70-100); LIPASE 88 U/L (73-393); POTASSIUM SERUM 3.9 MEQ/L (3.5-5.1); SODIUM LEVEL 140 MEQ/L (136-145); TOTAL PROTEIN 6.4 GM/DL (6.4-8.2)
[2020-12-24 22:14] LABS: HCG, SERUM QUALITATIVE NEGATIVE (NEGATIVE)
[2020-12-24 22:15] VITALS: BP 111/66
== END 2020-12-24 22:38 | disposition home or self-care (01) ==
LOC: M ED 19:28
DX: R10.9 Unspecified abdominal pain (principal); R19.7 Diarrhea, unspecified; E11.9 Type 2 diabetes mellitus without complications; F20.9 Schizophrenia, unspecified; K58.9 Irritable bowel syndrome, unspecified; F43.10 Post-traumatic stress disorder, unspecified; Z86.718 Personal history of other venous thrombosis and embolism; F17.200 Nicotine dependence, unspecified, uncomplicated; Z88.0 Allergy status to penicillin; Z88.6 Allergy status to analgesic agent; Z88.2 Allergy status to sulfonamides; Z88.8 Allergy status to other drugs, medicaments and biological substances
CPT/HCPCS: 80048; 80076; 83690; 84703; 85025; 93041; 96372; 99284; J0500

== ENCOUNTER 2020-12-27 06:10 | Day surgery (SDC) | payer OTHER ==
[~2020-12-27] VITALS: Ht 165.1 cm; Wt 107.5 kg
[~2020-12-27 06:10] MED LIST changes: +ARIP10TA32 PO; -ARIP1TAB PO; +LIDOCAINE 1% MDV 20ML VIAL SQ PRN; +LR 1,000 ML IV ONE; +OMEP40CA4 PO; -OMEP40CA97 PO
[2020-12-27 06:46] LABS: HEMATOCRIT 41.4 % (36.0-47.0); HEMOGLOBIN 14.4 g/dl (12.0-15.5); MEAN CORPUSCULAR HEMOGLOBIN 30.6 pg (27.0-33.0); MEAN CORPUSCULAR HGB CONC 34.8 g/dl (32.0-36.5); MEAN CORPUSCULAR VOLUME 87.9 fl (80.0-96.0); PLATELET COUNT, AUTOMATED 199 10^3/uL (150-450); RED BLOOD COUNT 4.71 10^6/uL (4.00-5.40); WHITE BLOOD COUNT 6.6 10^3/uL (4.0-10.0)
[2020-12-27] MEDS ORDERED: BUPIVACAINE HCL 0.25% 10ML VIAL As Ordered ONE (07:16)
[2020-12-27] MEDS ORDERED: propofoL 200 MG/20 ML VIAL As Ordered ONE (07:28)
[2020-12-27] MEDS ORDERED: ROCURONIUM BROMIDE 50 MG/5 ML VIAL As Ordered ONE ×2 (07:28→09:24)
[2020-12-27] MEDS ORDERED: ONDANSETRON 4MG/2ML VIAL As Ordered ONE (07:28)
[2020-12-27] MEDS ORDERED: LIDOCAINE 2% 100MG/5ML SDV (FOR ANES.) As Ordered ONE (07:28)
[2020-12-27] MEDS ORDERED: dexameTHASONE 4 MG/ML 1ML VIAL (J1100 PER 1MG) As Ordered ONE (07:28)
[2020-12-27] MEDS ORDERED: MIDAZOLAM INJ 2MG/2ML VIAL (J2250 PER 1MG) As Ordered ONE (07:29)
[2020-12-27] MEDS ORDERED: fentaNYL 250 MCG/5 ML INJECTION (J3010) As Ordered ONE (07:29)
[2020-12-27] MEDS ORDERED: SEVOFLURANE INHAL SOLN 250 ML BTL As Ordered ONE (07:42)
[2020-12-27] MEDS ORDERED: KETOROLAC 60MG 2ML VIAL As Ordered ONE ×2 (07:48→09:28)
[2020-12-27] MEDS ORDERED: SUGAMMADEX SODIUM 500 MG/5 ML VIAL (BRIDION) As Ordered ONE (07:48)
[2020-12-27] MEDS ORDERED: HYDROmorphone HCL 2 MG/ML 1ML VIAL (J1170) As Ordered ONE (07:48)
[2020-12-27] MEDS ORDERED: LACRILUBE (AKWA TEARS) OPHTH OINT 3.5 GM As Ordered ONE (07:51)
[2020-12-27] MEDS ORDERED: ceFAZolin SOD 2 GM in IV 1 EA IV ONE (08:10)
[2020-12-27] MEDS ORDERED: ALBUTEROL 6.7GM INHALER **FOR ANES. CART/OMNICELL ONLY As Ordered ONE (08:51)
[2020-12-27] MEDS ORDERED: DOCUSATE SODIUM 100MG CAPSULE PO SCH (09:00)
[2020-12-27] MEDS ORDERED: METOCLOPRAMIDE INJ 10MG/2ML VIAL (J2765 PER 1) As Ordered ONE (09:34)
--- NOTE | 2020-12-27 10:22 | ROOPDOC ---
[facility] Report Of Operation Report of Operation DATE OF PROCEDURE: 12/27/20 OPERATIVE REPORT: Preoperative diagnosis: Menorrhagia. Postoperative diagnosis: Same. Procedure: Robotic-assisted laparoscopic hysterectomy, cystoscopy. Surgeon: Shane Howe M.D. Ed Transporter: Jory Salguero NP Findings: Mildly enlarged uterus, surgically absent fallopian tubes. Normal ovaries. Adhesions of the bladder to the lower uterine segment. Normal upper abdomen. EBL: 200 mL's. Urine output: 100 mL's. Operative summary: Patient was taken to the operating room where general endotracheal anesthesia was induced. She was prepped and draped in sterile fashion in the dorsal lithotomy position. A Garcia Catheter was placed. A V care uterine manipulator was placed. A Periumbilical incision was made with a scalpel. A Veress needle was placed through this incision. Intra-abdominal location of Veress needle was assessed with saline filled syringe. A pneumoperitoneum was created. The Veress needle was removed. An 8 mm trocar using the Visiport was inserted through this incision. Three 8 mm suprapubic ports were placed under direct visualization The patient was placed in Trendelenburg position. The da Daja surgical robot was docked to the ports. Using the fenestrated bipolar instrument and vessel sealer, the utero-ovarian ligaments and broad ligaments were coagulated and incised. The round ligaments were coagulated and incised. The anterior and posterior leaves of the broad ligament were . Bladder flap was created. The uterine vessels were coagulated and incised using monopolar Endo Heath. A colpotomy was created in the upper vagina at the level of the V care Cup. The specimen including the uterus and cervix was removed through the vagina. The vaginal cuff was closed with #1 V lock suture in running fashion. Cystoscopy was performed using a 70 cystoscope. Bilateral ureteral jets were identified. No evidence of injury to the bladder. The cystoscope was removed. All instruments removed. The skin was closed with 4-0 Monocryl subcuticular sutures. Jory Salguero NP assisted with all aspects of the procedure. She helped position the patient. She helped insert the ports and manipulate the uterus. She removed the specimen. SHANE HOWE MD Dec 27, 2020 10:22
[2020-12-27] MEDS ORDERED: oxyCODONE 5MG TAB PO PRN ×3 (10:30→15:10)
[2020-12-27] MEDS ORDERED: ONDANSETRON 4MG/2ML VIAL IV PRN ×2 (10:30→10:35)
[2020-12-27] MEDS ORDERED: LR 1,000 ML IV SCH ×2 (10:30→12:15)
[2020-12-27] MEDS ORDERED: METOCLOPRAMIDE INJ 10MG/2ML VIAL (J2765 PER 1) IV PRN (10:30)
[2020-12-27] MEDS ORDERED: fentaNYL 100 MCG/2 ML INJECTION (J3010) IV PRN (10:30)
[2020-12-27] MEDS ORDERED: MORPHINE 4 MG/ML 1ML VIAL/SYRINGE (J2270) IV PRN (10:35)
[2020-12-27] MEDS: HYDROMORPHONE HCL 0.5 MG/ 0.5 ML SYRINGE (J1170 PER 1) IV PRN ×2 (10:39→10:51)
[2020-12-27] MEDS ORDERED: KETOROLAC 30 MG/ML 1ML VIAL IV PRN (10:40)
[2020-12-27] MEDS ORDERED: PERCOCET 5MG/325MG TAB PO PRN ×2 (10:40)
[2020-12-27 11:30] VITALS: BP 121/69
[2020-12-27 12:00] VITALS: BP_SYST 120; BP_DIAS 60; BP_DIAS 69
[2020-12-27 13:00] VITALS: BP 118/72
[2020-12-27 14:00] VITALS: BP 117/69
[2020-12-27 15:00] VITALS: BP 115/67
[2020-12-27 16:00] VITALS: BP 138/62
[2020-12-27] MEDS ORDERED: OXYC-1 PO (17:34)
[2020-12-28] MEDS ORDERED: UNRESOLVED CLARIFICATION ENTRY XX SCH (00:01)
[2021-01-08] MEDS ORDERED: HYDR-3713 PO (18:40)
== END 2020-12-27 18:45 | disposition home or self-care (01) ==
LOC: M SDC 06:10 → M MS5PR 11:25 → M SDC 18:45
PROVIDERS: ATTEND Specialist
DX: N92.0 Excessive and frequent menstruation with regular cycle (principal); D25.9 Leiomyoma of uterus, unspecified; N72 Inflammatory disease of cervix uteri; J44.9 Chronic obstructive pulmonary disease, unspecified; E78.00 Pure hypercholesterolemia, unspecified; Z86.711 Personal history of pulmonary embolism; G47.33 Obstructive sleep apnea (adult) (pediatric); Z88.0 Allergy status to penicillin; Z88.8 Allergy status to other drugs, medicaments and biological substances; Z88.1 Allergy status to other antibiotic agents; K21.9 Gastro-esophageal reflux disease without esophagitis; F41.9 Anxiety disorder, unspecified; F32.9 Major depressive disorder, single episode, unspecified; F17.218 Nicotine dependence, cigarettes, with other nicotine-induced disorders
CPT/HCPCS: 36415; 58570; 81025; 85027; 86850; 86900; 86901; 88307; 96374; J0690; J1100; J1170; J1885; J2250; J2405; J2765; J3010; S2900

== ENCOUNTER 2020-12-29 03:05 | Emergency (ER) | payer OTHER ==
[~2020-12-29] VITALS: Ht 167.6 cm; Wt 107.7 kg
[~2020-12-29 03:05] MED LIST changes: -ARIP10TA32 PO; +ARIP1TAB PO; -LIDOCAINE 1% MDV 20ML VIAL SQ PRN; -LR 1,000 ML IV ONE; -OMEP40CA4 PO; +OMEP40CA97 PO; +OXYC-1 PO
[2020-12-29] MEDS ORDERED: ONDANSETRON 4MG/2ML VIAL IV ONE (05:55)
[2020-12-29] MEDS ORDERED: MORPHINE 4 MG/ML 1ML VIAL/SYRINGE (J2270) IV ONE (05:55)
[2020-12-29 06:44] LABS: BASO % 0.1 % (0.0-1.0); EOS # 0.1 10^3/uL (0.0-0.5); EOS % 0.9 % (0.0-3.0); HEMATOCRIT 36.9 % (36.0-47.0); HEMOGLOBIN 12.6 g/dl (12.0-15.5); LYMPH # 2.6 10^3/uL (1.5-5.0); LYMPH % 34.7 % (24.0-44.0); MEAN CORPUSCULAR HEMOGLOBIN 30.9 pg (27.0-33.0); MEAN CORPUSCULAR HGB CONC 34.1 g/dl (32.0-36.5); MEAN CORPUSCULAR VOLUME 90.4 fl (80.0-96.0); MONO # 0.4 10^3/uL (0.0-0.8); MONO % 5.9 % (2.0-8.0); NEUTROPHILS # 4.3 10^3/uL (1.5-8.5); NEUTROPHILS % 58.1 % (36.0-66.0); PLATELET COUNT, AUTOMATED 174 10^3/uL (150-450); RED BLOOD COUNT 4.08 10^6/uL (4.00-5.40); WHITE BLOOD COUNT 7.4 10^3/uL (4.0-10.0)
[2020-12-29 07:03] LABS: ALBUMIN 3.3 GM/DL (3.2-5.2); ALT/SGPT 17 U/L (12-78); BILIRUBIN,DIRECT < 0.1 MG/DL (0.0-0.2); BILIRUBIN,TOTAL 0.3 MG/DL (0.2-1.0); LIPASE 58 U/L (73-393); TOTAL PROTEIN 5.9 GM/DL (6.4-8.2)
[2020-12-29] MEDS ORDERED: MIRA3350 PO (07:11)
[2020-12-29] MEDS ORDERED: COLA100C5 PO (07:11)
[2020-12-29 07:15] VITALS: BP 101/58
== END 2020-12-29 07:36 | disposition home or self-care (01) ==
LOC: M ED 03:05
DX: K59.00 Constipation, unspecified (principal); G89.18 Other acute postprocedural pain; R10.9 Unspecified abdominal pain; J44.9 Chronic obstructive pulmonary disease, unspecified; K21.9 Gastro-esophageal reflux disease without esophagitis; F17.200 Nicotine dependence, unspecified, uncomplicated; Z88.0 Allergy status to penicillin; Z88.1 Allergy status to other antibiotic agents; Z88.8 Allergy status to other drugs, medicaments and biological substances
CPT/HCPCS: 80047; 80076; 83690; 85025; 93041; 96374; 96375; 99285; J2270; J2405

== ENCOUNTER 2021-01-05 02:12 | Emergency (ER) | payer OTHER ==
[~2021-01-05] VITALS: Ht 165.1 cm; Wt 106.4 kg
[~2021-01-05 02:12] MED LIST changes: +COLA100C5 PO; +MIRA3350 PO
[2021-01-05] MEDS ORDERED: ABIL20TA5 PO (03:19)
[2021-01-05 04:17] LABS: BASO % 0.5 % (0.0-1.0); EOS # 0.2 10^3/uL (0.0-0.5); EOS % 2.9 % (0.0-3.0); HEMATOCRIT 38.3 % (36.0-47.0); HEMOGLOBIN 13.6 g/dl (12.0-15.5); LYMPH # 2.4 10^3/uL (1.5-5.0); LYMPH % 28.2 % (24.0-44.0); MEAN CORPUSCULAR HGB CONC 35.5 g/dl (32.0-36.5); MEAN CORPUSCULAR VOLUME 87.2 fl (80.0-96.0); MONO # 0.5 10^3/uL (0.0-0.8); MONO % 6.4 % (2.0-8.0); NEUTROPHILS # 5.2 10^3/uL (1.5-8.5); NEUTROPHILS % 61.6 % (36.0-66.0); PLATELET COUNT, AUTOMATED 208 10^3/uL (150-450); RED BLOOD COUNT 4.39 10^6/uL (4.00-5.40); WHITE BLOOD COUNT 8.4 10^3/uL (4.0-10.0)
[2021-01-05 04:39] LABS: ALBUMIN 3.6 GM/DL (3.2-5.2); BILIRUBIN,DIRECT 0.1 MG/DL (0.0-0.2); BILIRUBIN,TOTAL 0.5 MG/DL (0.2-1.0); TOTAL PROTEIN 6.6 GM/DL (6.4-8.2)
[2021-01-05 05:27] VITALS: BP 123/78
[2021-01-08] MEDS ORDERED: HYDR-3713 PO (18:40)
== END 2021-01-05 06:04 | disposition left against medical advice (07) ==
LOC: M ED 02:12
DX: R10.9 Unspecified abdominal pain (principal); Z53.21 Procedure and treatment not carried out due to patient leaving prior to being seen by health care provider

== ENCOUNTER 2021-02-18 12:47 | Emergency (ER) | payer OTHER ==
[~2021-02-18] VITALS: Ht 165.1 cm; Wt 106.8 kg
[~2021-02-18 12:47] MED LIST changes: +ABIL20TA5 PO; +ARIP10TA32 PO; -ARIP1TAB PO; +HYDR-3713 PO; +OMEP40CA4 PO; -OMEP40CA97 PO
[2021-02-18 12:48] VITALS: BP 152/82
[2021-02-18] MEDS ORDERED: AZIT-12 PO (13:20)
[2021-02-18] MEDS ORDERED: METH4PACK PO (13:20)
== END 2021-02-18 13:45 | disposition left against medical advice (07) ==
LOC: M ED 12:47
DX: Z53.21 Procedure and treatment not carried out due to patient leaving prior to being seen by health care provider (principal)

== ENCOUNTER 2021-04-07 02:05 | Emergency (ER) | payer OTHER ==
[~2021-04-07] VITALS: Ht 165.1 cm; Wt 102.4 kg
[~2021-04-07 02:05] MED LIST changes: -ABIL10TA9 PO
[2021-04-07 02:06] VITALS: BP 120/66
[2021-04-07] MEDS ORDERED: ABIL10TA9 PO (02:12)
== END 2021-04-07 04:19 | disposition left against medical advice (07) ==
LOC: M ED 02:05
DX: Z53.21 Procedure and treatment not carried out due to patient leaving prior to being seen by health care provider (principal)

== ENCOUNTER → 2021-04-07 | Outpatient (REF) | payer OTHER ==
[~2021-04-07] MED LIST changes: +ABIL10TA9 PO; +AZIT-12 PO; +METH4PACK PO; -QUET50TA3 PO; +QUET50TA4 PO
[2021-04-08 12:30] LABS: GC DNA AMPLIFICATION NEGATIVE (NEGATIVE)
== END ==
LOC: M SFHCWAGY 10:10
PROVIDERS: ATTEND Obstetrics & Gynecology
DX: Z11.3 Encounter for screening for infections with a predominantly sexual mode of transmission (principal)

== ENCOUNTER 2021-04-30 17:44 | Emergency (ER) | payer OTHER ==
[~2021-04-30] VITALS: Ht 165.1 cm; Wt 113.6 kg
[2021-04-30 17:44] VITALS: BP 111/69
[~2021-04-30 17:44] MED LIST changes: +ABIL10TA9 PO
== END 2021-04-30 18:48 | disposition left against medical advice (07) ==
LOC: M ED 17:44
DX: Z53.21 Procedure and treatment not carried out due to patient leaving prior to being seen by health care provider (principal)

== ENCOUNTER 2021-05-16 01:59 | Emergency (ER) | payer OTHER ==
[~2021-05-16] VITALS: Ht 165.1 cm; Wt 104.5 kg
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
--- OUTSIDE RECORDS SUMMARY | 2021-05-16 02:04 | CCD ---
Author Author [facility] Organization [facility] Address Unknown Phone Unavailable Care Team Providers Care [employer] Emergency Services Dispatcher Name Role Phone Misty Oconnell Unavailable PROBLEMS Type Condition ICD9-CM Code XQU19-LL Code Onset Dates Condition S tatus W/U Status Risk SNOMED Code Notes Problem Degenerative disc disease, cervical M50.30 Acti ve confirmed 44783801 Problem Post traumatic stress disorder (PTSD) F43.10 Ac tive confirmed 40211730 Problem Cervical cancer screening Z12.4 Active confirmed 513411995 Problem Family history of breast cancer Z80.3 Active confi rmed 597387431 Problem Mild persistent asthma without complication J45.30 Active confirmed 699797524 Problem Factor 5 Leiden mutation, heterozygous D68.51 A ctive confirmed 586598241 Problem Gastroesophageal reflux disease with esophagitis K 21.0 Active confirmed 474672691 Problem Constipation, unspecified constipation type K59.00 Active confirmed 74408342 Problem Splenomegaly R16.1 Active confirmed 1746480 9 Problem Seasonal allergic rhinitis due to pollen J30.1 Active confirmed 16300300 Problem Anti-phospholipid syndrome D68.61 Active confirmed 21867588 Problem Adenoma of left adrenal gland D35.02 Active confirm ed 713610755 Problem Nicotine use disorder F17.200 Active confirmed 11151796 Problem Complex cyst of left ovary N83.292 Active confi rmed 98141641550940541 Problem Non-compliant behavior R46.89 Active confirmed 338351779 Problem History of pulmonary embolus (PE) Z86.711 Active confirmed 261081793 Problem Obesity (BMI 30-39.9) E66.9 Active confirmed 483294957 Problem Chronic anticoagulation Z79.01 Active confirmed 021021494 Problem Lumbago with sciatica, right side M54.41 Active confirmed 631728328 Problem Smoker F17.200 Active confirmed 65195091 Problem Paranoid schizophrenia F20.0 Active confirmed 21208312 Problem Menorrhagia with irregular cycle N92.1 Active conf irmed 477536849 Problem Hyperlipidemia, mixed E78.2 Active confirmed 620226088 Problem H/O deep venous thrombosis Z86.718 Active confirmed 474088976 Problem Mild persistent asthma with acute exacerbation J45 .31 Active confirmed 647346267413572 Problem Hx pulmonary embolism Z86.711 Active confirmed 602907768 ALLERGIES Allergen (clinical drug ingredient) Drug/Non Drug Allergy do cumented on EMR Reaction Allergy Type Onset Date Status acetaminophen Acetaminophen(ND Code:[address]-83) swelling Drug A llergy Active Penicillin (For Allergies Use Only) swelling Drug Allerg y Active Amoxicillin amoxicillin swelling Non Drug Allergy Active Sudafed([facility] Code:[address]-28) ? Drug Allergy Active Ibuprofen ibuprofen ? Non Drug Allergy Active bactrim swelling Non Drug Allergy Active gabapentin Gabapentin(ND Code:[address]-80) swelling Drug Allergy Active phenazopyridine Pyridium(ND Code:[address]-37) swelling Drug Nick rgy Active ENCOUNTERS from 1980 to 2021-04-07 Encounter Location Date Provider Diagnosis [facility] [facility] [phone] [place] [address] 13 Mar, 2021 [facility] IMMUNIZATIONS No Information SOCIAL HISTORY Tobacco Use: Social History Observation Description Date Details (start date - stop date) Current Smoker Sex Assigned At : Social History Observation Description Sex Assigned At Unknown Audit Question Answer Notes Total Score: 0 Interpretation: Alcohol Education Language: Question Answer Notes Languages spoken: Puerto Rican Adventist: Question Answer Notes Adventist 08 Gnosticism Drug and Alcohol Question Answer Notes Total [...] Notes Start Da te End Date Status May Have - cane daily daily dx m54.41 for 99 days Aug Not-Taking guaiFENesin AC 100-10 MG/5ML 10 ml as needed Orally every 4 hrs for 5 day(s) Jan, Not-Taking Heparin Sodium (Porcine) 5000 unit/mL as directed Inje ction subcuticular every 12 hrs for 3 days November, Not-Taking Clobetasol Prop Emollient Base 0.05 % apply a thin lay er to groin Externally Twice a day for 7 day(s) Sep, Not-Suman ing Eliquis 5 MG 1 tab Orally bid for 30 days Active Nystatin 273559 UNIT/GM 1 application Externally to groin Twice a day for 10 day(s) Oct, Not-Taking Methocarbamol 750 MG TAKE ONE TABLET BY MOUTH THREE TIMES A DAY for 3 0 Not-Taking Diflucan 150 MG 1 tablet Orally once for 1 days If sympt oms persist 72 hours after initial dosing, take second dose. Mar, Active HYDROcodone-Acetaminophen 5-325 MG 1 tablet as needed Orally every 6 hrs for 10 days Dec, Not-Taking Claritin 10 MG 1 tablet Orally Once a day Not-Taking Albuterol Sulfate HFA 108 (90 Base) MCG/ACT 2 puffs as needed Inhalation every 6 hrs Active HYDROcodone Bitartrate ER 10 MG 1 capsule Orally every 12 hrs fo r 5 days Dec, Not-Taking AirDuo RespiClick 113/14 113-14 MCG/ACT 1 puff Inhalation Twice a day Active Abilify 10 MG 1 tablet Orally Daily Active Atorvastatin Calcium 20 MG 1 tablet Orally Once a day for 30 Days Not-Taking Heparin Sodium (Porcine) 5000 UNIT/ML 1 ml Injection every 1 2 hrs for 5 day(s) Dec, Not-Taking Fluticasone Propionate 50 MCG/ACT 1 spray in each nost ril Nasally Once a day for 30 Not-Taking PROCEDURES No Information RESULTS No Results REASON FOR VISIT gynecology concerns MEDICAL (GENERAL) HISTORY Type Description Date Medical History Paranoid Schizophrenia, PTSD treated in [place] previously-follows c Dr. 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 for malignancy 2013 Surgical History PE Screen 10/2019 Surgical History R nipple/areola breast excisional biopsy 06/2020 Surgical History [facility] 12/27/2020 Hospitalization History [facility] 07/19/2018-07/26 [facility] Hospitalization History B PE, LLE DVT-+ apixaban, ma ed OCP, encouragedd to dc nicotine 06/20- Hospitalization History DVT, PE 10/20/2019 Goals Section No Information Health Concerns No Information MEDICAL EQUIPMENT No Information MENTAL STATUS No Information FUNCTIONAL STATUS No Information ASSESSMENTS No Information PLAN OF TREATMENT Medication Medication Name Sig Start Date Stop Date Diflucan 150 MG 1 tablet Orally once for 1 days Mar, Next Appt Details Provider Name:Fatimah De La Garza, 04-11 10:45:00 AM, [address] [facility], , [place], [address], Provider Name:Steph Roberts, 15-04-24 08:30:00 AM, [address] [facility], , [place], [address], Insurance Providers Payer Name Payer Address Payer Phone Insured Name Patient Relati onship to Insured Coverage Start Date Coverage End Date [facility] COMM[facility] PLAN [facility] [address] [facility] [phone] ELGIN KOO self
--- OUTSIDE RECORDS SUMMARY | 2021-05-16 02:04 | CCD ---
Author Author [facility] Organization [facility] Address Unknown Phone Unavailable Care Team Providers Care Automotive Engineering Teacher Name Role Phone aFtimah De La Garza Unavailable PROBLEMS Type Condition ICD9-CM Code LVB70-PX Code Onset Dates Condition S tatus W/U Status Risk SNOMED Code Notes Problem Degenerative disc disease, cervical M50.30 Acti ve confirmed 11201440 Problem Post traumatic stress disorder (PTSD) F43.10 Ac tive confirmed 38707204 Problem Cervical cancer screening Z12.4 Active confirmed 857759267 Problem Family history of breast cancer Z80.3 Active confi rmed 618867081 Problem Mild persistent asthma without complication J45.30 Active confirmed 461547625 Problem Factor 5 Leiden mutation, heterozygous D68.51 A ctive confirmed 350149414 Problem Gastroesophageal reflux disease with esophagitis K 21.0 Active confirmed 518303907 Problem Constipation, unspecified constipation type K59.00 Active confirmed 64444145 Problem Splenomegaly R16.1 Active confirmed 2112429 9 Problem Seasonal allergic rhinitis due to pollen J30.1 Active confirmed 54190253 Problem Anti-phospholipid syndrome D68.61 Active confirmed 24112557 Problem Adenoma of left adrenal gland D35.02 Active confirm ed 914995770 Problem Nicotine use disorder F17.200 Active confirmed 92363338 Problem Complex cyst of left ovary N83.292 Active confi rmed 04594223041732120 Problem Non-compliant behavior R46.89 Active confirmed 145971017 Problem History of pulmonary embolus (PE) Z86.711 Active confirmed 907309532 Problem Obesity (BMI 30-39.9) E66.9 Active confirmed 751618932 Problem Chronic anticoagulation Z79.01 Active confirmed 875315937 Problem Lumbago with sciatica, right side M54.41 Active confirmed 184675816 Problem Smoker F17.200 Active confirmed 69217146 Problem Paranoid schizophrenia F20.0 Active confirmed 33584994 Problem Menorrhagia with irregular cycle N92.1 Active conf irmed 888219337 Problem Hyperlipidemia, mixed E78.2 Active confirmed 117899726 Problem H/O deep venous thrombosis Z86.718 Active confirmed 111153919 Problem Mild persistent asthma with acute exacerbation J45 .31 Active confirmed 039198050493647 Problem Hx pulmonary embolism Z86.711 Active confirmed 167295894 ALLERGIES Allergen (clinical drug ingredient) Drug/Non Drug Allergy do cumented on EMR Reaction Allergy Type Onset Date Status acetaminophen Acetaminophen(ND Code:[address]-57) swelling Drug A llergy Active Penicillin (For Allergies Use Only) swelling Drug Allerg y Active Amoxicillin amoxicillin swelling Non Drug Allergy Active Sudafed([facility] Code:[address]-41) ? Drug Allergy Active Ibuprofen ibuprofen ? Non Drug Allergy Active bactrim swelling Non Drug Allergy Active gabapentin Gabapentin(ND Code:[address]-88) swelling Drug Allergy Active phenazopyridine Pyridium(ND Code:[address]-91) swelling Drug Nick rgy Active ENCOUNTERS from 1980 to 2021-03-12 Encounter Location Date Provider Diagnosis [place] [address] [facility] [phone] [place] [address] 18 Feb, 2021 Fatimah De La Garza IMMUNIZATIONS No Information SOCIAL HISTORY Tobacco Use: Social History Observation Description Date Details (start date - stop date) Current Smoker Sex Assigned At : Social History Observation Description Sex Assigned At Unknown Audit Question Answer Notes Total Score: 0 Interpretation: Alcohol Education Language: Question Answer Notes Languages spoken: Chadian Holiness: Question Answer Notes Holiness 08 Baptist Sexual Hx: Question Answer Notes Had sex [...] tablet Orally Once a day Active Nystatin 898648 UNIT/GM 1 application Externally to groin Twice [...] Information RESULTS No Results REASON FOR VISIT no show MEDICAL (GENERAL) HISTORY Type Description Date Medical History Paranoid Schizophrenia, PTSD treated in [place] previously-follows c Dr. Ward 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 for malignancy 2013 Surgical History PE Screen 10/2019 Surgical History R nipple/areola breast excisional biopsy 06/2020 Surgical History [facility] 12/27/2020 Hospitalization History [facility] 07/19/2018-07/26 Hospitalization History [facility] 04/2019 Hospitalization History B PE, LLE DVT-+ [...] De La Garza, 04-11 10:45:00 AM, [address] [facility], , [place], [address], Provider Name:Steph Roberts, 15-04-24 08:30:00 AM, [address] [facility], , [place], [address], Insurance Providers Payer Name Payer Address Payer Phone Insured Name Patient Relati onship to Insured Coverage Start Date Coverage End Date [facility] [employer] [address] [facility] [phone] EL[place] KOO self
--- OUTSIDE RECORDS SUMMARY | 2021-05-16 02:04 | CCD ---
Author Author [facility] Organization [facility] Address Unknown Phone Unavailable Care Team Providers Care Loom Tuner Name Role Phone Fatimah De La Garza Unavailable PROBLEMS Type Condition ICD9-CM Code [id number] Code Onset Dates Condition S tatus W/U Status Risk SNOMED Code Notes Problem Degenerative disc disease, cervical M50.30 Acti ve confirmed 19800764 Problem Post traumatic stress disorder (PTSD) F43.10 Ac tive confirmed 49873214 Problem Cervical cancer screening Z12.4 Active confirmed 180064002 Problem Family history of breast cancer Z80.3 Active confi rmed 985918716 Problem Mild persistent asthma without complication J45.30 Active confirmed 841846515 Problem Factor 5 Leiden mutation, heterozygous D68.51 A ctive confirmed 320812833 Problem Gastroesophageal reflux disease with esophagitis K 21.0 Active confirmed 636899851 Problem Constipation, unspecified constipation type K59.00 Active confirmed 57911652 Problem Splenomegaly R16.1 Active confirmed 0423260 9 Problem Seasonal allergic rhinitis due to pollen J30.1 Active confirmed 35411337 Problem Anti-phospholipid syndrome D68.61 Active confirmed 82754745 Problem Adenoma of left adrenal gland D35.02 Active confirm ed 699837249 Problem Nicotine use disorder F17.200 Active confirmed 73718820 Problem Complex cyst of left ovary N83.292 Active confi rmed 27141862899112222 Problem Non-compliant behavior R46.89 Active confirmed 047014017 Problem History of pulmonary embolus (PE) Z86.711 Active confirmed 904085321 Problem Obesity (BMI 30-39.9) E66.9 Active confirmed 207137814 Problem Chronic anticoagulation Z79.01 Active confirmed 191996552 Problem Lumbago with sciatica, right side M54.41 Active confirmed 317198844 Problem Smoker F17.200 Active confirmed 34160114 Problem Paranoid schizophrenia F20.0 Active confirmed 54768132 Problem Menorrhagia with irregular cycle N92.1 Active conf irmed 153346834 Problem Hyperlipidemia, mixed E78.2 Active confirmed 734334654 Problem H/O deep venous thrombosis Z86.718 Active confirmed 074726397 Problem Mild persistent asthma with acute exacerbation J45 .31 Active confirmed 530057217080625 Problem Hx pulmonary embolism Z86.711 Active confirmed 612598422 ALLERGIES Allergen (clinical drug ingredient) Drug/Non Drug Allergy do cumented on EMR Reaction Allergy Type Onset Date Status acetaminophen Acetaminophen(ND Code:[address]-46) swelling Drug A llergy Active Penicillin (For Allergies Use Only) swelling Drug Allerg y Active Amoxicillin amoxicillin swelling Non Drug Allergy Active Sudafed([facility] Code:[address]-73) ? Drug Allergy Active Ibuprofen ibuprofen ? Non Drug Allergy Active bactrim swelling Non Drug Allergy Active gabapentin Gabapentin(ND Code:[address]-47) swelling Drug Allergy Active phenazopyridine Pyridium(ND Code:[address]-00) swelling Drug Nick rgy Active ENCOUNTERS from 1980 to 2021-04-30 Encounter Location Date Provider Diagnosis [place] [id number] [facility] [phone] [place] [address] 05 Apr, 2021 Fatimah De La Garza IMMUNIZATIONS No Information SOCIAL HISTORY Tobacco Use: Social History Observation Description Date Details (start date - stop date) Current Smoker Sex Assigned At : Social History Observation Description Sex Assigned At Unknown Audit Question Answer Notes Total Score: 0 Interpretation: Alcohol Education Language: Question Answer Notes Languages spoken: Maltese Restorationism: Question Answer Notes Restorationism 08 Sikhism Drug and Alcohol Question Answer Notes Total [...] Orally bid for 30 days Active Nystatin 511396 UNIT/GM 1 application Externally to groin Twice [...] Information RESULTS No Results REASON FOR VISIT sore throat, upper back/side hurts MEDICAL (GENERAL) HISTORY Type Description Date Medical History Paranoid Schizophrenia, PTSD treated [place] previously-follows c Dr. 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 for malignancy 2013 Surgical History PE Screen 10/2019 Surgical History R nipple/areola breast excisional biopsy 06/2020 Surgical History [facility] 12/27/2020 Hospitalization History [facility] 07/19/2018-[facility] Hospitalization History B PE, LLE DVT-+ [...] 1 days Mar, Next Appt Details Provider Name:Steph Roberts, 20 21-11- 09:00:00 AM, [address] [facility], , [place], [place], [facility], Insurance Providers Payer Name Payer Address Payer Phone Insured Name Patient Relati onship to Insured Coverage Start Date Coverage End Date [facility] [address] [facility] [phone] ELGIN KOO self
--- OUTSIDE RECORDS SUMMARY | 2021-05-16 02:04 | CCD ---
Author Author [facility] Organization [facility] Address Unknown Phone Unavailable Care Team Providers Care Panel Fitter Name Role Phone Charlotte Holm Unavailable PROBLEMS Type Condition ICD9-CM Code TAY13-UJ Code Onset Dates Condition S tatus W/U Status Risk SNOMED Code Notes Problem Degenerative disc disease, cervical M50.30 Acti ve confirmed 34774658 Problem Post traumatic stress disorder (PTSD) F43.10 Ac tive confirmed 20947251 Problem Cervical cancer screening Z12.4 Active confirmed 372923616 Problem Family history of breast cancer Z80.3 Active confi rmed 754240849 Problem Mild persistent asthma without complication J45.30 Active confirmed 140508267 Problem Factor 5 Leiden mutation, heterozygous D68.51 A ctive confirmed 962714220 Problem Gastroesophageal reflux disease with esophagitis K 21.0 Active confirmed 865194655 Problem Constipation, unspecified constipation type K59.00 Active confirmed 30063945 Problem Splenomegaly R16.1 Active confirmed 1864537 9 Problem Seasonal allergic rhinitis due to pollen J30.1 Active confirmed 85740919 Problem Anti-phospholipid syndrome D68.61 Active confirmed 53675348 Problem Adenoma of left adrenal gland D35.02 Active confirm ed 066876691 Problem Nicotine use disorder F17.200 Active confirmed 43711782 Problem Complex cyst of left ovary N83.292 Active confi rmed 09156109843253030 Problem Non-compliant behavior R46.89 Active confirmed 767905915 Problem History of pulmonary embolus (PE) Z86.711 Active confirmed 809123784 Problem Obesity (BMI 30-39.9) E66.9 Active confirmed 613690784 Problem Chronic anticoagulation Z79.01 Active confirmed 091177534 Problem Lumbago with sciatica, right side M54.41 Active confirmed 778273538 Problem Smoker F17.200 Active confirmed 55659526 Problem Paranoid schizophrenia F20.0 Active confirmed 57692621 Problem Menorrhagia with irregular cycle N92.1 Active conf irmed 420886512 Problem Hyperlipidemia, mixed E78.2 Active confirmed 404832722 Problem H/O deep venous thrombosis Z86.718 Active confirmed 317884563 Problem Mild persistent asthma with acute exacerbation J45 .31 Active confirmed 175448991150564 Problem Hx pulmonary embolism Z86.711 Active confirmed 911133382 ALLERGIES Allergen (clinical drug ingredient) Drug/Non Drug Allergy do cumented on EMR Reaction Allergy Type Onset Date Status acetaminophen Acetaminophen(ND Code:[address]-08) swelling Drug A llergy Active Penicillin (For Allergies Use Only) swelling Drug Allerg y Active Amoxicillin amoxicillin swelling Non Drug Allergy Active Sudafed([facility] Code:[address]-15) ? Drug Allergy Active Ibuprofen ibuprofen ? Non Drug Allergy Active bactrim swelling Non Drug Allergy Active gabapentin Gabapentin(NDC Code:[address]-43) swelling Drug Allergy Active phenazopyridine Pyridium(NDC Code:[address]-31) swelling Drug Nick rgy Active ENCOUNTERS from 1980 to 2021-04-30 Encounter Location Date Provider Diagnosis [facility] [address] [facility] [phone] [place] [address] 13 Mar, 2021 Charlotte Arceonam Dysuria R30.0 ; Vagi nitis N76.0 ; Candidiasis of vulva and vagina B37.3 and Screening for STD (sexually transmitted disease) Z11.3 IMMUNIZATIONS No Information SOCIAL HISTORY Tobacco Use: Social History Observation Description Date Details (start date - stop date) Current Smoker Sex Assigned At : Social History Observation Description Sex Assigned At Unknown Audit Question Answer Notes Total Score: 0 Interpretation: Alcohol Education Language: Question Answer Notes Languages spoken: Senegalese Episcopal: Question Answer Notes Episcopal 08 Hinduism Drug and Alcohol Question Answer Notes Total [...] REASON FOR REFERRAL No Information VITAL SIGNS Weight 226 lbs Mar, Height 65.5 in Mar, BMI 37.03 kg/m2 Mar, Blood pressure systolic 122 mm Hg Mar, Blood pressure diastolic 72 mm Hg Mar, MEDICATIONS Medication SIG (Take, Route, Frequency, Duration) [...] Orally bid for 30 days Active Nystatin 569429 UNIT/GM 1 application Externally to groin Twice [...] for 30 Not-Taking PROCEDURES No Information RESULTS Component Value Reference Range CHLAMYDIA & GC DNA AMPLIFICAT Reviewed date:04/18/2021 15:55:16 Interpretation: Performing Lab:Formerly [facility], [facility] [address] [facility] [id number] , ,[place] [address] CHLAMYDIA DNA AMPLIFICATION NEGATIVE NEGATIVE GC DNA AMPLIFICATION NEGATIVE NEGATIVE REASON FOR VISIT STD testing MEDICAL (GENERAL) HISTORY Type Description Date Medical History Paranoid Schizophrenia, [place] previously-follows c Dr. 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 for malignancy 2013 Surgical History PE Screen 10/2019 Surgical History R nipple/areola breast excisional biopsy 06/2020 Surgical History [facility] 12/27/2020 Hospitalization History [facility] 07/19/2018-07/26 Hospitalization History IN[facility] 04/2019 Hospitalization History B PE, LLE DVT-+ apixaban, dc ed OCP, encouragedd to dc nicotine 06/20- Hospitalization History DVT, PE 10/20/2019 Goals Section No Information Health Concerns No Information MEDICAL EQUIPMENT No Information MENTAL STATUS No Information FUNCTIONAL STATUS No Information ASSESSMENTS Encounter Date Diagnosis Assessment Notes Treatment Notes Treatm ent Clinical Notes Mar, Dysuria (ICD-10 - R30.0) Mar, Vaginitis (ICD-10 - N76.0) Mar, Candidiasis of vulva and vagina (ICD-10 - B37.3) Mar, Screening for STD (sexually transmitted disease) (ICD-10 - Z11.3) PLAN OF TREATMENT Medication Medication Name Sig Start Date Stop Date Diflucan 150 MG 1 tablet Orally once for 1 days Mar, Treatment Notes Test Name Order Date SYPHILIS ANTIBODY (RPR SCREEN) 2021-04-07 HIV 1and2 ANTIBODY SCREEN 2021-04-07 HEPATITIS B CORE ANTIBODY IGM 2021-04-07 HEPATITIS A ANTIBODY IGM 2021-04-07 HEPATITIS B SURFACE ANTIGEN 2021-04-07 HEPATITIS C ANTIBODY INDEX 2021-04-07 UA URINALYSIS 2021-04-07 Next Appt Details Provider Name:Steph Roberts, 20 15-06-12 09:00:00 AM, [address] [facility], , [place], [address], Insurance Providers Payer Name Payer Address Payer Phone Insured Name Patient Relati onship to Insured Coverage Start Date Coverage End Date [facility] [address] [facility] [phone] ELGIN KOO self
--- OUTSIDE RECORDS SUMMARY | 2021-05-16 02:04 | CCD ---
Author Author [facility] Organization [facility] Address Unknown Phone Unavailable Care Team Providers Care Artisan Plasterer Name Role Phone Steph Roberts Unavailable PROBLEMS Type Condition ICD9-CM Code PTJ20-IV Code Onset Dates Condition S tatus W/U Status Risk SNOMED Code Notes Problem Degenerative disc disease, cervical M50.30 Acti ve confirmed 04278088 Problem Post traumatic stress disorder (PTSD) F43.10 Ac tive confirmed 52163794 Problem Cervical cancer screening Z12.4 Active confirmed 619630110 Problem Family history of breast cancer Z80.3 Active confi rmed 485320748 Problem Mild persistent asthma without complication J45.30 Active confirmed 453364012 Problem Factor 5 Leiden mutation, heterozygous D68.51 A ctive confirmed 316920440 Problem Gastroesophageal reflux disease with esophagitis K 21.0 Active confirmed 178761436 Problem Constipation, unspecified constipation type K59.00 Active confirmed 87456179 Problem Splenomegaly R16.1 Active confirmed 3888116 9 Problem Seasonal allergic rhinitis due to pollen J30.1 Active confirmed 52812782 Problem Anti-phospholipid syndrome D68.61 Active confirmed 09541444 Problem Adenoma of left adrenal gland D35.02 Active confirm ed 118411611 Problem Nicotine use disorder F17.200 Active confirmed 86397847 Problem Complex cyst of left ovary N83.292 Active confi rmed 42445512018449086 Problem Non-compliant behavior R46.89 Active confirmed 211146065 Problem History of pulmonary embolus (PE) Z86.711 Active confirmed 303035966 Problem Obesity (BMI 30-39.9) E66.9 Active confirmed 445271130 Problem Chronic anticoagulation Z79.01 Active confirmed 332234455 Problem Lumbago with sciatica, right side M54.41 Active confirmed 517340884 Problem Smoker F17.200 Active confirmed 19246278 Problem Paranoid schizophrenia F20.0 Active confirmed 51489926 Problem Menorrhagia with irregular cycle N92.1 Active conf irmed 389904755 Problem Hyperlipidemia, mixed E78.2 Active confirmed 671853937 Problem H/O deep venous thrombosis Z86.718 Active confirmed 791553136 Problem Mild persistent asthma with acute exacerbation J45 .31 Active confirmed 637331541960895 Problem Hx pulmonary embolism Z86.711 Active confirmed 823262495 ALLERGIES Allergen (clinical drug ingredient) Drug/Non Drug Allergy do cumented on EMR Reaction Allergy Type Onset Date Status acetaminophen Acetaminophen(ND Code:[address]-97) swelling Drug A llergy Active Penicillin (For Allergies Use Only) swelling Drug Allerg y Active Amoxicillin amoxicillin swelling Non Drug Allergy Active Sudafed([facility] Code:[address]-05) ? Drug Allergy Active Ibuprofen ibuprofen ? Non Drug Allergy Active bactrim swelling Non Drug Allergy Active gabapentin Gabapentin(ND Code:[address]-04) swelling Drug Allergy Active phenazopyridine Pyridium(ND Code:[address]-21) swelling Drug Nick rgy Active ENCOUNTERS from 1980 to 2021-04-17 Encounter Location Date Provider Diagnosis [facility] [address] [place] [address] [place] [address] Mar, Steph Dombrowska IMMUNIZATIONS No Information SOCIAL HISTORY Tobacco Use: Social History Observation Description Date Details (start date - stop date) Current Smoker Sex Assigned At : Social History Observation Description Sex Assigned At Unknown Audit Question Answer Notes Total Score: 0 Interpretation: Alcohol Education Language: Question Answer Notes Languages spoken: Iranian Holiness: Question Answer Notes Holiness 08 Orthodoxy Drug and Alcohol Question Answer Notes Total [...] Orally bid for 30 days Active Nystatin 561009 UNIT/GM 1 application Externally to groin Twice [...] Information RESULTS No Results REASON FOR VISIT r/s appt MEDICAL (GENERAL) HISTORY Type Description Date Medical History Paranoid Schizophrenia, PTSD treated [place] previously-follows c Dr. 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 for malignancy 2013 Surgical History PE Screen 10/2019 Surgical History R nipple/areola breast excisional biopsy 06/2020 Surgical History [facility] 12/27/2020 Hospitalization History [facility] 07/19/2018-07/26 [facility] Hospitalization History B PE, LLE DVT-+ [...] Name:Steph Roberts, 20 21-11- 09:00:00 AM, [address] [facility], , [place], [place], [facility], Insurance Providers Payer Name Payer Address Payer Phone Insured Name Patient Relati onship to Insured Coverage Start Date Coverage End Date [facility] [address] [facility] [phone] ELGIN KOO self
--- OUTSIDE RECORDS SUMMARY | 2021-05-16 02:04 | CCD ---
Author Author Angela Hayes Organization [facility] Address Unknown Phone Unavailable Care Team Providers Care Disbursing Officer Name Role Phone Leatha Hayes PCP Unavailable Allergies, Adverse Reactions, Alerts Allergy Substance Code C odeSystem Reaction Severity Critic ality Status Start Date amoxicillin (bulk) Unknown: Happened as a small child Moderate Active penicillin Unknown: Happened as a small child Moderate Active ibuprofen (bulk) lips swelled Moderate Active Bactrim DS 499769 RxNorm swellng in mouth Moderate Active Medications Medication Medication Code Medication CodeSystem Start Date Stop Date Route Dose Status Fill Instructions RxNorm Problems Problem Name Code CodeSy stem Alternate Code Alternate CodeSystem Start Date End Date Status Narrative Schizophrenia, unspecified 68056688 SNOMED- CT 2018-09-05 Active Post-traumatic stress disorder, unspecified 27117848 SNOMED-CT 2018-09-05 Active Relevant diagnostic tests/laboratory data Narrative No Information Procedures Procedure Name Code Code System Target Site Date of Procedure Status Service Delivery Location Device Cod e Device Name Device UID Psychotherapy, 45 minutes with patient [id number] SNOMED-CT () 2019-08-[address], [id number] Psychotherapy, 45 minutes with patient 66502813 SNOMED-CT () 2019-09-[address], [id number] Initial Psychiatric Evaluation 604498967 SNOMED-CT () 2018-12-[address], [id number] Health Monitoring / Risk Reduction Counseling - Brief [id number] SNOMED-CT () 2018-09-[address], 748887913 [id number] Est. Patient - E&M Intermediate 488992989 SNOMED-CT () 2019-03-[address], [id number] [phone] Est. Patient - E&M Intermediate [id number] SNOMED-CT () 2019-04-[address], 378911911 [id number] Est. Patient - E&M Intermediate 046059189 SNOMED-CT () 2019-05-[address], [id number] [id number] Est. Patient - E&M Intermediate [id number] SNOMED-CT () 2019-06-[address], [id number] [id number] Est. Patient - E&M Intermediate [id number] SNOMED-CT () 2019-08-[address], 277931896 [id number] Est. Patient - E&M Intermediate [id number] SNOMED-CT () 2019-09-[address], 236810065 [id number] Est. Patient - E&M Intermediate [id number] SNOMED-CT () 2020-10-[address], 939323926 [phone] Est. Patient - E&M Intermediate [id number] SNOMED-CT () 2021-01-[address], 863421885 [id number] Est. Patient - E&M Intermediate [id number] SNOMED-CT () 2021-03-[address], [id number] [id number] Est. Patient - E&M Brief 487752679 SNOMED-CT () 2018-12-[address], [id number] [phone] Est. Patient - E&M Brief 101472662 SNOMED-CT () 2020-01-[address], [id number] [id number] Est. Patient - E&M Brief 433243556 SNOMED-CT () 2020-03-[address], 160250345 [phone] Est. Patient - E&M Brief [id number] SNOMED-CT () 2020-04-[address], 935754973 [phone] Est. Patient - E&M Brief [id number] SNOMED-CT () 2020-06-[address], 511829981 [id number] Est. Patient - E&M Brief [id number] SNOMED-CT () 2020-08-[address], [id number] [id number] Est. Patient - E&M Brief [id number] SNOMED-CT () 2020-09-[address], 055936871 [phone] Est. Patient - E&M Expanded [id number] SNOMED-CT () 2020-11-[address], 896793558 [phone] Individual Psychotherapy [id number] SNOMED-CT () 2018-08-[address], 800621298 [id number] Individual Psychotherapy 90757489 SNOMED-CT () 2018-09-[address], 117432724 [id number] Individual Psychotherapy [id number] SNOMED-CT () 2018-11-[address], 267670092 [phone] Individual Psychotherapy [id number] SNOMED-CT () 2019-04-[address], 301978500 [phone] Individual Psychotherapy [id number] SNOMED-CT () 2019-06-[address], 647797252 [id number] Individual Psychotherapy 94035154 SNOMED-CT () 2019-07-[address], 196497238 [id number] Individual Psychotherapy 54255598 SNOMED-CT () 2021-01-[address], 070859921 [phone] Individual Psychotherapy 08596424 SNOMED-CT () 2021-03-[address], 120414533 [phone] Individual Psychotherapy [id number] SNOMED-CT () 2020-03-[address], 132841131 [phone] Individual Psychotherapy 89991084 SNOMED-CT () 2020-09-[address], 507587572 [id number] Individual Psychotherapy [id number] SNOMED-CT () 2020-09-[address], 480033224 [id number] Individual Psychotherapy 09806213 SNOMED-CT () 2020-10-[address], 366453392 [phone] Individual Psychotherapy [id number] SNOMED-CT () 2020-11-[address], 804401877 [id number] Individual Psychotherapy 11090938 SNOMED-CT () 2020-12-[address], 824388907 [id number] Individual Psychotherapy [id number] SNOMED-CT () 2019-11-[address], 502866425 [id number] Individual Psychotherapy 95646024 SNOMED-CT () 2019-12-[address], 085878368 [phone] Individual Psychotherapy [id number] SNOMED-CT () 2020-01-[address], 787777897 [phone] Individual Psychotherapy [id number] SNOMED-CT () 2020-01-[address], 598127606 [id number] Individual Psychotherapy 65818575 SNOMED-CT () 2020-02-[address], 852585713 [id number] Individual Psychotherapy 63602415 SNOMED-CT () 2020-02-[address], 827439736 [id number] Individual Psychotherapy [id number] SNOMED-CT () 2019-08-[address], 814588528 [phone] Individual Psychotherapy [id number] SNOMED-CT () 2019-09-[address], [id number] [phone] Psychiatric Diagnostic Evaluation without medical serv ices [id number] SNOMED-CT () 2018-09-[address], [id number] [phone] Encounters/Encounter Diagnoses Encounter Name Encounter Code Diagnosis Code Diagnosis Name Diagnosis CodeSystem Date of Diagnosis Service Delivery L ocation Telehealth Medication Therapy Low Complexity 58873 [id number] Schizophrenia, unspecified SNOMED-CT 2021-03-12 [facility] [address] [place] [address], [id number] Vital Signs Code CodeSystem Vitals Date Value 8480-6 [facility] Blood Press ure-Systolic 2019-09-08 86 mm[HG] 8462-4 [facility] Blood Press ure-Diastolic 2019-09-08 124 mm[HG] 15502-8 [facility] BMI 2019-09-08 38.67 (lb/in2) 8302-2 [facility] Height 2019-09-08 65.5 [in_i] 84550-5 [facility] Weight 2019-09-08 236 [lb_av] 8867-4 [facility] Heart Rate 2019-09-08 80 /min Social History Element Description Description Start Date End Date Code CodeSystem AdditionalInfo SexAssignedAtBirth Female 1980 F AdministrativeGender Hospital Discharge Instructions * Reason For Referral Medical Equipment * FDA Assessments * Goals Section Goals Planned DateTime Angela will increase ability to regulate her moods 2018-09-09
--- OUTSIDE RECORDS SUMMARY | 2021-05-16 02:05 | CCD ---
Author Author [facility] [employer] Organization [facility] [employer] [facility] [employer] Address Unknown Phone Unavailable Care Team Providers Care Cpr Ambulance Driver Name Role Phone Fatimah De La Garza Unavailable PROBLEMS ALLERGIES ENCOUNTERS from 1980 to 2021-02-20 IMMUNIZATIONS No Information SOCIAL HISTORY REASON FOR REFERRAL No Information VITAL SIGNS MEDICATIONS PROCEDURES No Information RESULTS No Results REASON FOR VISIT MEDICAL (GENERAL) HISTORY Goals Section Health Concerns MEDICAL EQUIPMENT No Information MENTAL STATUS FUNCTIONAL STATUS ASSESSMENTS PLAN OF TREATMENT Insurance Providers
--- OUTSIDE RECORDS SUMMARY | 2021-05-16 02:05 | CCD ---
Author Author [facility] [employer] Organization [facility] [employer] Address Unknown Phone Unavailable Care Team Providers Care [employer] Liqu[employer] Sales Representative Name Role Phone Steph Roberts Unavailable PROBLEMS Type Condition ICD9-CM Code BRG01-LT Code Onset Dates Condition S tatus W/U Status Risk SNOMED Code Notes Problem Degenerative disc disease, cervical M50.30 Acti ve confirmed 91979608 Problem Post traumatic stress disorder (PTSD) F43.10 Ac tive confirmed 85143573 Problem Cervical cancer screening Z12.4 Active confirmed 076465428 Problem Family history of breast cancer Z80.3 Active confi rmed 122856828 Problem Mild persistent asthma without complication J45.30 Active confirmed 819935058 Problem Factor 5 Leiden mutation, heterozygous D68.51 A ctive confirmed 690201985 Problem Gastroesophageal reflux disease with esophagitis K 21.0 Active confirmed 571848799 Problem Constipation, unspecified constipation type K59.00 Active confirmed 00709920 Problem Splenomegaly R16.1 Active confirmed 8202640 9 Problem Seasonal allergic rhinitis due to pollen J30.1 Active confirmed 80836901 Problem Anti-phospholipid syndrome D68.61 Active confirmed 81169010 Problem Adenoma of left adrenal gland D35.02 Active confirm ed 172187016 Problem Nicotine use disorder F17.200 Active confirmed 18139463 Problem Complex cyst of left ovary N83.292 Active confi rmed 40014370777195717 Problem Non-compliant behavior R46.89 Active confirmed 425964606 Problem History of pulmonary embolus (PE) Z86.711 Active confirmed 046677259 Problem Obesity (BMI 30-39.9) E66.9 Active confirmed 492040667 Problem Chronic anticoagulation Z79.01 Active confirmed 488612942 Problem Lumbago with sciatica, right side M54.41 Active confirmed 238674424 Problem Smoker F17.200 Active confirmed 21277023 Problem Paranoid schizophrenia F20.0 Active confirmed 19011996 Problem Menorrhagia with irregular cycle N92.1 Active conf irmed 763752754 Problem Hyperlipidemia, mixed E78.2 Active confirmed 142380175 Problem H/O deep venous thrombosis Z86.718 Active confirmed 276645143 Problem Mild persistent asthma with acute exacerbation J45 .31 Active confirmed 627619855975198 Problem Hx pulmonary embolism Z86.711 Active confirmed 920590630 ALLERGIES Allergen (clinical drug ingredient) Drug/Non Drug Allergy do cumented on EMR Reaction Allergy Type Onset Date Status acetaminophen Acetaminophen(ND Code:[address]-68) swelling Drug A llergy Active Penicillin (For Allergies Use Only) swelling Drug Allerg y Active Amoxicillin amoxicillin swelling Non Drug Allergy Active Sudafed([facility] Code:[address]-31) ? Drug Allergy Active Ibuprofen ibuprofen ? Non Drug Allergy Active bactrim swelling Non Drug Allergy Active gabapentin Gabapentin(NDC Code:[address]-38) swelling Drug Allergy Active phenazopyridine Pyridium(NDC Code:[address]-41) swelling Drug Nick rgy Active ENCOUNTERS from 1980 to 2021-02-27 Encounter Location Date Provider Diagnosis [facility] [address] [place] [address] [place] [address] Jan, Steph Alejandra IMMUNIZATIONS No Information SOCIAL HISTORY Tobacco Use: Social History Observation Description Date Details (start date - stop date) Current Smoker Sex Assigned At : Social History Observation Description Sex Assigned At Unknown Audit Question Answer Notes Total Score: 0 Interpretation: Alcohol Education Language: Question Answer Notes Languages spoken: Swiss Zoroastrianism: Question Answer Notes Zoroastrianism 08 Restoration Sexual Hx: Question Answer Notes Had sex [...] tablet Orally Once a day Active Nystatin 372274 UNIT/GM 1 application Externally to groin Twice [...] Information RESULTS No Results REASON FOR VISIT March appt - breast MEDICAL (GENERAL) HISTORY Type Description Date Medical History Paranoid Schizophrenia, PTSD treated in [place] previously-follows c Dr. 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 for malignancy 2013 Surgical History PE Screen 10/2019 Surgical History R nipple/areola breast excisional biopsy 06/2020 Surgical History [facility] 12/27/2020 Hospitalization History [facility] 07/19/2018-07/26 Hospitalization History [facility] 04/2019 Hospitalization History B PE, LLE DVT-+ apixaban, de ed OCP, encouragedd to dc nicotine 06/20- [...] Appt Details Provider Name:Fatimah De La Garza, 2020-02-28 10:00:00 AM, [address] [facility], , [place], [address], Provider Name:Fatimah De La Garza, 2020-0 04-11 10:45:00 AM, [address] [place] [address], , [place], [address], Provider Name:Steph Roberts, 15-04-24 08:30:00 AM, [address] [place] [address], , [place], [address], Insurance Providers Payer Name Payer Address Payer Phone Insured Name Patient Relati onship to Insured Coverage Start Date Coverage End Date [facility] [place] [address] [facility] [phone] ELGIN KOO self
--- OUTSIDE RECORDS SUMMARY | 2021-05-16 02:06 | CCD ---
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 Name Role Phone Balaji Garcia MD Unavailable Unavailable Balaji Garcia MD Unavailable Unavailable Balaji Garcia MD Unavailable Unavailable Balaji Garcia MD Unavailable Unavailable Balaji Garcia MD Unavailable Unavailable Balaji Garcia MD Unavailable Unavailable JAYCE JACQUI Unavailable Unavailable TURRIN, JACQUI Unavailable Unavailable TURRIN, JACQUI Unavailable Unavailable TURRIN, JACQUI Unavailable Unavailable Swatsworth, R Fatimah PA Unavailable Unavailable Swatsworth, R Fatimah PA Unavailable Unavailable Swatsworth, R Fatimah PA Unavailable Unavailable Swatsworth, R Fatimah PA Unavailable Unavailable Swatsworth, R Fatimah PA Unavailable Unavailable Swatsworth, R Fatimah PA Unavailable Unavailable Swatsworth, R Fatimah PA Unavailable Unavailable Swatsworth, R Fatimah PA Unavailable Unavailable Swatsworth, R Fatimah PA Unavailable Unavailable Swatsworth, R Fatimah PA Unavailable Unavailable Swatsworth, R Fatimah PA Unavailable Unavailable Swatsworth, R Fatimah PA Unavailable Unavailable Swatsworth, R Fatimah PA Unavailable Unavailable Swatsworth, R Fatimah PA Unavailable Unavailable Swatsworth, R Fatimah PA Unavailable Unavailable Swatsworth, R Fatimah PA Unavailable Unavailable Swatsworth, R Fatimah PA Unavailable Unavailable Swatsworth, R Fatimah PA Unavailable Unavailable Swatsworth, R Fatimah PA Unavailable Unavailable Swatsworth, R Fatimah PA Unavailable Unavailable Swatsworth, R Fatimah PA Unavailable Unavailable Swatsworth, R Fatimah PA Unavailable Unavailable Swatsworth, R Fatimah PA Unavailable Unavailable Swatsworth, R Fatimah PA Unavailable Unavailable Swatsworth, R Fatimah PA Unavailable Unavailable Swatsworth, R Fatimah PA Unavailable Unavailable Swatsworth, R Fatimah PA Unavailable Unavailable Swatsworth, R Fatimah PA Unavailable Unavailable Swatsworth, R Fatimah PA Unavailable Unavailable Swatsworth, R Fatimah PA Unavailable Unavailable Swatsworth, R Fatimah PA Unavailable Unavailable Swatsworth, R Fatimah PA Unavailable Unavailable Swatsworth, R Fatimah PA Unavailable Unavailable Swatsworth, R Fatimah PA Unavailable Unavailable Swatsworth, R Fatimah PA Unavailable Unavailable Swatsworth, R Fatimah PA Unavailable Unavailable Swatsworth, R Fatimah PA Unavailable Unavailable Swatsworth, R Fatimah PA Unavailable Unavailable Swatsworth, R Fatimah PA Unavailable Unavailable Swatsworth, R Fatimah PA Unavailable Unavailable Swatsworth, R Fatimah PA Unavailable Unavailable Swatsworth, R Fatimah PA Unavailable Unavailable Swatsworth, R Fatimah PA Unavailable Unavailable Swatsworth, R Fatimah PA Unavailable Unavailable Swatsworth, R Fatimah PA Unavailable Unavailable Swatsworth, R Fatimah PA Unavailable Unavailable Swatsworth, R Fatimah PA Unavailable Unavailable Swatsworth, R Fatimah PA Unavailable Unavailable Swatsworth, R Fatimah PA Unavailable Unavailable DOMINIC, L LINDA MD Unavailable Unavailable DOMINIC, L LINDA MD Unavailable Unavailable DOMINIC, L LINDA MD Unavailable Unavailable DOMINIC, L LINDA MD Unavailable Unavailable DOMINIC, L LINDA MD Unavailable Unavailable DOMINIC, L LINDA MD Unavailable Unavailable DOMINIC, L LINDA MD Unavailable Unavailable DOMINIC, L LINDA MD Unavailable Unavailable DOMINIC, L LINDA MD Unavailable Unavailable DOMINIC, L LINDA MD Unavailable Unavailable DOMINIC, L LINDA MD Unavailable Unavailable DOMINIC, L LINDA MD Unavailable Unavailable DOMINIC, L LINDA MD Unavailable Unavailable DOMINIC, L LINDA MD Unavailable Unavailable DOMINIC, L LINDA MD Unavailable Unavailable DOMINIC, L LINDA MD Unavailable Unavailable DOMINIC, L LINDA MD Unavailable Unavailable DOMINIC, L LINDA MD Unavailable Unavailable DOMINIC, L LINDA MD Unavailable Unavailable DOMINIC, L LINDA MD Unavailable Unavailable Re-disclosure Warning The records that you are about to access may contain information from federally-assisted alcohol or drug abuse programs. If such information is present, then the following federally mandated warning applies: This information has been disclosed to you from records protected by federal confidentiality rules (42 CFR part 2). The federal rules prohibit you from making any further disclosure of this information unless further disclosure is expressly permitted by the written consent of the person to whom it pertains or as otherwise permitted by 42 CFR part 2. A general authorization for the release of medical or other information is NOT sufficient for this purpose. The Federal rules restrict any use of the information to criminally investigate or prosecute any alcohol or drug abuse patient.The records that you are about to access may contain highly sensitive health information, the redisclosure of which is protected by Article 27-F of the [facility] Public Health law. If you continue you may have access to information: Regarding HIV / AIDS; Provided by facilities licensed or operated by the [facility] Office of Mental Health; or Provided by the [facility] Office for People With Developmental Disabilities. If such information is present, then the following [facility] mandated warning applies: This information has been disclosed to you from confidential records which are protected by state law. State law prohibits you from making any further disclosure of this information without the specific written consent of the person to whom it pertains, or as otherwise permitted by law. Any unauthorized further disclosure in violation of state law may result in a fine or [place] [facility] sentence or both. A general authorization for the release of medical or other information is NOT sufficient authorization for further disc losure. Allergies and Adverse Reactions Type Description Substance Reaction Status Data Source(s ) Drug allergy pyridium pyridium [facility] Drug allergy penicillin penicillin [facility] Drug allergy bactrim bactrim [facility] Drug allergy Drug allergy [id number] [facility] Propensity to adverse reactions SUDAFED PE COLD & COUGH SUDAFED PE COLD & COUGH [facility] Drug allergy AMOXICILLIN AMOXICILLIN [facility] Family History Family Member Name Family Member Gender Family Member Status Date o f Status Description Data Source(s) Unknown Male Problem [facility] ([facility]) Encounters Encounter Providers Location Date Indications Data Source(s ) Unknown [address] [facility] [id number] 04/29/2021 12:00:00 AM EDT [facility] Unknown [address] [facility] [address] 04/16/2021 12:00:00 AM EDT [facility] Outpatient [address] [facility] [place] [address] 04/07/2021 12:00:00 AM EDT eCW1 ([facility]) Unknown [address] [facility] [place] [address] 04/07/2021 12:00:00 AM EDT eCW1 ([facility]) [facility] 03/12/2021 12:00:00 AM EDT [employer] ([facility]) Unknown [address] [facility] [place] [address] 03/12/2021 12:00:00 AM EDT eCW1 ([facility]) Unknown [address] [facility] Y [address] 02/28/2021 12:00:00 AM EDT [facility]CW1 [facility]) Emergency Attender: Balaji Garcia MDConsultant: Fatimah MESA 02/18/2021 02:36:00 PM EDT - 02/18/2021 04:45:00 PM EDT [facility] Patient discharged. [place] [address] [facility] [place] [address] 02/18/2021 12:00:00 AM EDT eCW1 ([facility]) Emergency Attender: JACQUI EDUARDOConsultant: Fatimah MESA 02/17/2021 08:20:00 PM EDT - 02/17/2021 10:10:00 PM EDT [facility] Patient discharged. Emergency Attender: LINDA BLACK MDConsultant: Fatimah MESA 02/10/2021 11:55:00 PM EDT - 02/11/2021 02:57:00 AM EDT [facility] Patient discharged. 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 [address] [place] [address] 01/07/2021 12:00:00 AM EDT eCW1 (Counts include 234 beds at the [facility]) [place] [address] [facility] [place] [address] 01/02/2021 12:00:00 AM EDT eCW1 (Counts include 234 beds at the [facility]) Telehealth Physchotherapy 30 Minutes with Patient [facility] 01/02/2021 12:00:00 AM EDT [employer] ([facility]) Unknown [address] [facility] [place] [address] 12/31/2020 12:00:00 AM EDT eCW1 (Counts include 234 beds at the [facility]) [place] [address] [facility] [place] [address] 12/31/2020 12:00:00 AM EDT [facility]CW1 [facility] Unknown [address] [facility] [address] 12/24/2020 12:00:00 AM EDT eCW1 [facility]) Unknown [address] [facility] [address] 12/24/2020 12:00:00 AM EDT eCW1 [facility]) Unknown [address] [facility] [address] 12/20/2020 12:00:00 AM EDT eCW1 ([facility]) (WC 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 Telehealth Physchotherapy 30 Minutes with Patient [facility] 11/18/2020 12:00:00 AM EDT [employer] ([facility]) Unknown [address] [facility] [address] 11/18/2020 12:00:00 AM EDT eCW1 [facility]) Unknown [address] [facility] [address] 11/14/2020 12:00:00 AM EDT eCW1 [facility]) Outpatient [address] [facility] [address] 11/13/2020 12:00:00 AM EDT eCW1 [facility]) Outpatient [address] [facility] [address] 11/11/2020 12:00:00 AM EDT eCW1 [facility]) (WC PROC) MELVAenter Procedure [address] [place] [address] 11/08/2020 12:00:00 AM EDT eCW1 ([facility]) Outpatient [address] [facility] [place] [address] 10/09/2020 12:00:00 AM EDT eCW1 ([facility]) Outpatient [address] [facility] [place] [address] 09/24/2020 12:00:00 AM EST eCW1 ([facility]) Unknown [address] [facility] [place] [address] 09/24/2020 12:00:00 AM EST eCW1 ([facility]) Outpatient [address] [facility] [place] [address] 09/23/2020 12:00:00 AM EST eCW1 ([facility]) Unknown [address] [facility] [place] [address] 09/20/2020 12:00:00 AM EST eCW1 ([facility]) Unknown [address] [facility] [place] [address] 09/10/2020 12:00:00 AM EST eCW1 ([facility]) (BC FU) Breast Center Follow Up [address] [place] [address] 08/23/2020 12:00:00 AM EST eCW1 ([facility]) Outpatient [address] [facility] [place] [address] 08/20/2020 12:00:00 AM EST eCW1 ([facility]) Unknown [address] [facility] [place] [address] 08/12/2020 12:00:00 AM EST eCW1 ([facility]) Unknown [address] [facility] [place] [address] 08/05/2020 12:00:00 AM EST eCW1 ([facility]) (BC FU) Breast Center Follow Up [facility] [place] [address] 07/11/2020 12:00:00 AM EST eCW1 ([facility]) [place] [address] [facility] [place] [address] 07/10/2020 12:00:00 AM EST [facility]CW1 [facility] [place] [address] [facility] [place] [address] 07/10/2020 12:00:00 AM EST [facility]CW1 [facility]) [place] [address] [facility] [place] [address] 07/05/2020 12:00:00 AM EST eCW1 ([facility]) [place]patient [address] [facility] [place] [address] 07/05/2020 12:00:00 AM EST eCW1 [facility]) [place] [address] [facility] [place] [address] 07/01/2020 12:00:00 AM EST eCW1 ([facility]) [place]patient [address] [facility] [place] [address] 06/28/2020 12:00:00 AM EST eCW1 ([facility]) [place]patient [address] [facility] [place] [address] 05/30/2020 12:00:00 AM EST eCW1 ([facility]) [place] [address] [facility] [place] [address] 05/28/2020 12:00:00 AM EST eCW1 ([facility]) [place]patient [address] [facility] [place] [address] 05/10/2020 12:00:00 AM EDT eCW1 ([facility]) [place] [address] [facility] [place] [address] 04/29/2020 12:00:00 AM EDT eCW1 ([facility]) [place] [address] [facility] [place] [address] 04/29/2020 12:00:00 AM EDT eCW1 ([facility]) Immunizations Vaccine Date Status Description Data Source(s) INFLUENZA VIRUS VACCINE QUADRIVALENT (6 MOS AN D UP) 08/23/2020 12:00:00 AM EST completed [facility] Medications Medication Brand Name Start Date Product Form Dose Route Admi nistrative Instructions Pharmacy Instructions Status Indications Reaction Description Data Source(s) 20 mg 05/08/2021 12:00:00 AM EDT tablet 30 TAKE 1 TABLET BY MOUTH DAILY TAKE 1 TABLET BY MOUTH DAILY SOLD: 05/13/2021 [facility] 20 mg 04/11/2021 12:00:00 AM EDT tablet 30 TAKE ONE TABLET BY MOUTH ONCE DAILY TAKE ONE TABLET BY MOUTH ONCE DAILY SOLD: 04/14/2021 [facility] 50 mg 04/10/2021 12:00:00 AM EDT tablet 30 TAKE ONE-HALF TABLET BY MOUTH EVERY DAY AT BEDTIME NEEDED FOR SLEEP TAKE ONE-HALF TABLET BY MOUTH EVERY DAY AT BEDTIME NEEDED FOR SLEEP SOLD: 04/11/2021 [facility] 150 mg 04/07/2021 12:00:00 AM EDT tablet 1 TAKE ONE TABLET BY MOUTH ONCE - IF SYMPTOMS PERSIST 72 HOURS AFTER 1ST DOSE THEN TAKE 2ND DOSE TAKE ONE TABLET BY MOUTH ONCE - IF SYMPTOMS PERSIST 72 HOURS AFTER 1ST DOSE THEN TAKE 2ND DOSE SOLD: 04/11/2021 [facility] 150 mg 04/07/2021 12:00:00 AM EDT tablet 1 TAKE ONE TABLET BY MOUTH ONCE - IF SYMPTOMS PERSIST 72 HOURS AFTER 1ST DOSE THEN TAKE 2ND DOSE TAKE ONE TABLET BY MOUTH ONCE - IF SYMPTOMS PERSIST 72 HOURS AFTER 1ST DOSE THEN TAKE 2ND DOSE SOLD: 04/07/2021 [facility] Fluconazole 150 MG Oral Tablet [Diflucan] Diflucan 150 MG Di flucan 150 MG 04/07/2021 12:00:00 AM EDT 1.0 {tablet} active Diflucan 150 MG eCW1 ([facility]) Fluconazole 150 MG Oral Tablet [Diflucan] Diflucan 150 MG Di flucan 150 MG 04/07/2021 12:00:00 AM EDT 1.0 {tablet} active Diflucan 150 MG eCW1 ([facility]) Fluconazole 150 MG Oral Tablet [Diflucan] Diflucan 150 MG Di flucan 150 MG 04/07/2021 12:00:00 AM EDT 1.0 {tablet} active Diflucan 150 MG eCW1 ([facility]) Fluconazole 150 MG Oral Tablet [Diflucan] Diflucan 150 MG Di flucan 150 MG 04/07/2021 12:00:00 AM EDT 1.0 {tablet} active Diflucan 150 MG eCW1 ([facility]) 20 mg 03/17/2021 12:00:00 AM EDT tablet 30 TAKE ONE TABLET BY MOUTH EVERY DAY TAKE ONE TABLET BY MOUTH EVERY DAY SOLD: 03/21/2021 [facility] 10 mg 03/13/2021 12:00:00 AM EDT tablet 60 TAKE ONE TABLET BY MOUTH TWICE A DAY NEEDED ANXIETY/SLEEP TAKE ONE TABLET BY MOUTH TWICE A DAY NEEDED ANXIETY/SLEEP SOLD: 03/14/2021 [facility] 10 mg 03/13/2021 12:00:00 AM EDT tablet 30 TAKE ONE TABLET BY MOUTH EVERY DAY AT BEDTIME TAKE ONE TABLET BY MOUTH EVERY DAY AT BEDTIME SOLD: 03/14/2021 [facility] Codeine Phosphate 2 MG/ML / Guaifenesin 20 MG/ML Oral Solution guaiFENesin AC 100-10 MG/5ML guaiFENesin AC 100-10 MG/5ML 02/19/2021 12:00:00 AM EDT 10.0 {ml_as_needed} active guaiFENesin AC 10 0-10 MG/5ML eCW1 ([facility]) Codeine Phosphate 2 MG/ML / Guaifenesin 20 MG/ML Oral Solution guaiFENesin AC 100-10 MG/5ML guaiFENesin AC 100-10 MG/5ML 02/19/2021 12:00:00 AM EDT 10.0 {ml_as_needed} active eCW1 ([facility]) Codeine Phosphate 2 MG/ML / Guaifenesin 20 MG/ML Oral Solution guaiFENesin AC 100-10 MG/5ML guaiFENesin AC 100-10 MG/5ML 02/19/2021 12:00:00 AM EDT 10.0 {ml_as_needed} active guaiFENesin AC 10 0-10 MG/5ML eCW1 ([facility]) Codeine Phosphate 2 MG/ML / Guaifenesin 20 MG/ML Oral Solution guaiFENesin AC 100-10 MG/5ML guaiFENesin AC 100-10 MG/5ML 02/19/2021 12:00:00 AM EDT 10.0 {ml_as_needed} suspended guaiFENesin AC 100-10 MG/5ML eCW1 ([facility]) Codeine Phosphate 2 MG/ML / Guaifenesin 20 MG/ML Oral Solution guaiFENesin AC 100-10 MG/5ML guaiFENesin AC 100-10 MG/5ML 02/19/2021 12:00:00 AM EDT 10.0 {ml_as_needed} suspended guaiFENesin AC 100-10 MG/5ML eCW1 ([facility]) Codeine Phosphate 2 MG/ML / Guaifenesin 20 MG/ML Oral Solution guaiFENesin AC 100-10 MG/5ML guaiFENesin AC 100-10 MG/5ML 02/19/2021 12:00:00 AM EDT 10.0 {ml_as_needed} suspended guaiFENesin AC 100-10 MG/5ML eCW1 ([facility]) Codeine Phosphate 2 MG/ML / Guaifenesin 20 MG/ML Oral Solution guaiFENesin AC 100-10 MG/5ML guaiFENesin AC 100-10 MG/5ML 02/19/2021 12:00:00 AM EDT 10.0 {ml_as_needed} suspended guaiFENesin AC 100-10 MG/5ML eCW1 ([facility]) Codeine Phosphate 2 MG/ML / Guaifenesin 20 MG/ML Oral Solution guaiFENesin AC 100-10 MG/5ML guaiFENesin AC 100-10 MG/5ML 02/19/2021 12:00:00 AM EDT 10.0 {ml_as_needed} active guaiFENesin AC 10 0-10 MG/5ML eCW1 ([facility]) 4 mg 02/18/2021 12:00:00 AM EDT tablets,dose pack 21 TAKE BY MOUTH DIRECTED TAKE BY MOUTH DIRECTED SOLD: 02/18/2021 [facility] 250 mg 02/18/2021 12:00:00 AM EDT tablet 4 TAKE ONE TABLET BY MOUTH EVERY DAY FOR 4 DAYS TAKE ONE TABLET BY MOUTH EVERY DAY FOR 4 DAYS SOLD: 02/18/2021 [facility] 90 mcg/actuation 02/18/2021 12:00:00 AM EDT HFA aerosol inha ler 8 INHALE 2 PUFFS BY MOUTH FOUR TIMES A DAY INHALE 2 PUFFS BY MOUTH FOUR TIMES A DAY SOLD: 02/18/2021 [facility] 20 mg 02/18/2021 12:00:00 AM EDT tablet 30 TAKE ONE TABLET BY MOUTH ONCE DAILY TAKE ONE TABLET BY MOUTH ONCE DAILY SOLD: 02/18/2021 [facility] 500 mg 02/11/2021 12:00:00 AM EDT tablet 20 TAKE ONE TABLET BY MOUTH TWO TIMES A DAY DIRECTED TAKE ONE TABLET BY MOUTH TWO TIMES A DAY DIRECTED SOLD: 02/12/2021 [facility] 500 mg 02/11/2021 12:00:00 AM EDT tablet 20 TAKE ONE TABLET BY MOUTH TWO TIMES A DAY TAKE ONE TABLET BY MOUTH TWO TIMES A DAY SOLD: 02/12/2021 [facility] Acetaminophen 325 MG / Hydrocodone Bitartrate 5 MG Ora l Tablet 5-325 mg HYDROCODONE/ACETAMINOPHEN 01/08/2021 12:00:00 AM EDT tablet 15 TAKE ONE TABLET BY MOUTH THREE TIMES A DAY NEEDED FOR PAIN, MAXIMUM DAILY DOSE = 3 TABETS TAKE ONE TABLET BY MOUTH THREE TIMES A DAY NEEDED FOR PAIN, MAXIMUM DAILY DOSE = 3 TABETS SOLD: 01/08/2021 [facility] HYDROcodone Bitartrate ER 10 MG HYDROcodone Bitartrate ER 10 MG 12/31/2020 12:00:00 AM EDT 1.0 {capsule} active HYDROcodone Bitartrate ER 10 MG eCW1 ([facility]) Acetaminophen 325 MG / Hydrocodone Bee trate 5 MG Oral Tablet HYDROcodone- Acetaminophen 5-325 MG HYDROcodone-Acetaminophen 5-325 MG 12/31/2020 12:00:00 AM EDT 1.0 {tablet_as_needed} suspended HYDROcodone-Acetaminophen 5- 325 MG eCW1 ([facility]) Acetaminophen 325 MG / Hydrocodone Bee trate 5 MG Oral Tablet HYDROcodone- Acetaminophen 5-325 MG HYDROcodone-Acetaminophen 5-325 MG 12/31/2020 12:00:00 AM EDT 1.0 {tablet_as_needed} active HYDROcodone-Acetaminophen 5-325 MG eCW1 ([facility]) Acetaminophen 325 MG / Hydrocodone Bee trate 5 MG Oral Tablet HYDROcodone- Acetaminophen 5-325 MG HYDROcodone-Acetaminophen 5-325 MG 12/31/2020 12:00:00 AM EDT 1.0 {tablet_as_needed} active HYDROcodone-Acetaminophen 5-325 MG eCW1 ([facility]) HYDROcodone Bitartrate ER 10 MG HYDROcodone Bitartrate ER 10 MG 12/31/2020 12:00:00 AM EDT 1.0 {capsule} suspended HYDROcodone Bitartrate ER 10 MG eCW1 ([facility]) Acetaminophen 325 MG / Hydrocodone Bee trate 5 MG Oral Tablet HYDROcodone- Acetaminophen 5-325 MG HYDROcodone-Acetaminophen 5-325 MG 12/31/2020 12:00:00 AM EDT 1.0 {tablet_as_needed} suspended HYDROcodone-Acetaminophen 5- 325 MG eCW1 ([facility]) HYDROcodone Bitartrate ER 10 MG HYDROcodone Bitartrate ER 10 MG 12/31/2020 12:00:00 AM EDT 1.0 {capsule} active HYDROcodone Bitartrate ER 10 MG eCW1 ([facility]) Acetaminophen 325 MG / Hydrocodone Bee trate 5 MG Oral Tablet HYDROcodone- Acetaminophen 5-325 MG HYDROcodone-Acetaminophen 5-325 MG 12/31/2020 12:00:00 AM EDT 1.0 {tablet_as_needed} active HYDROcodone-Acetaminophen 5-325 MG eCW1 ([facility]) HYDROcodone Bitartrate ER 10 MG HYDROcodone Bitartrate ER 10 MG 12/31/2020 12:00:00 AM EDT 1.0 {capsule} active HYDROcodone Bitartrate ER 10 MG eCW1 ([facility]) HYDROcodone Bitartrate ER 10 MG HYDROcodone Bitartrate ER 10 MG 12/31/2020 12:00:00 AM EDT 1.0 {capsule} suspended HYDROcodone Bitartrate ER 10 MG eCW1 ([facility]) Acetaminophen 325 MG / Hydrocodone Bee trate 5 MG Oral Tablet HYDROcodone- Acetaminophen 5-325 MG HYDROcodone-Acetaminophen 5-325 MG 12/31/2020 12:00:00 AM EDT 1.0 {tablet_as_needed} active HYDROcodone-Acetaminophen 5-325 MG eCW1 ([facility]) HYDROcodone Bitartrate ER 10 MG HYDROcodone Bitartrate ER 10 MG 12/31/2020 12:00:00 AM EDT 1.0 {capsule} active HYDROcodone Bitartrate ER 10 MG eCW1 ([facility]) HYDROcodone Bitartrate ER 10 MG HYDROcodone Bitartrate ER 10 MG 12/31/2020 12:00:00 AM EDT 1.0 {capsule} suspended HYDROcodone Bitartrate ER 10 MG eCW1 ([facility]) Acetaminophen 325 MG / Hydrocodone Bee trate 5 MG Oral Tablet HYDROcodone- Acetaminophen 5-325 MG HYDROcodone-Acetaminophen 5-325 MG 12/31/2020 12:00:00 AM EDT 1.0 {tablet_as_needed} active HYDROcodone-Acetaminophen 5-325 MG eCW1 ([facility]) Acetaminophen 325 MG / Hydrocodone Bee trate 5 MG Oral Tablet HYDROcodone- Acetaminophen 5-325 MG HYDROcodone-Acetaminophen 5-325 MG 12/31/2020 12:00:00 AM EDT 1.0 {tablet_as_needed} active HYDROcodone-Acetaminophen 5-325 MG eCW1 ([facility]) HYDROcodone Bitartrate ER 10 MG HYDROcodone Bitartrate ER 10 MG 12/31/2020 12:00:00 AM EDT 1.0 {capsule} active HYDROcodone Bitartrate ER 10 MG eCW1 ([facility]) HYDROcodone Bitartrate ER 10 MG HYDROcodone Bitartrate ER 10 MG 12/31/2020 12:00:00 AM EDT 1.0 {capsule} active HYDROcodone Bitartrate ER 10 MG eCW1 ([facility]) Acetaminophen 325 MG / Hydrocodone Bee trate 5 MG Oral Tablet HYDROcodone- Acetaminophen 5-325 MG HYDROcodone-Acetaminophen 5-325 MG 12/31/2020 12:00:00 AM EDT 1.0 {tablet_as_needed} active eCW1 ([facility]) Acetaminophen 325 MG / Hydrocodone Bee trate 5 MG Oral Tablet HYDROcodone- Acetaminophen 5-325 MG HYDROcodone-Acetaminophen 5-325 MG 12/31/2020 12:00:00 AM EDT 1.0 {tablet_as_needed} suspended HYDROcodone-Acetaminophen 5- 325 MG eCW1 ([facility]) Acetaminophen 325 MG / Hydrocodone Bee trate 5 MG Oral Tablet HYDROcodone- Acetaminophen 5-325 MG HYDROcodone-Acetaminophen 5-325 MG 12/31/2020 12:00:00 AM EDT 1.0 {tablet_as_needed} active HYDROcodone-Acetaminophen 5-325 MG eCW1 ([facility]) Acetaminophen 325 MG / Hydrocodone Bee trate 5 MG Oral Tablet HYDROcodone- Acetaminophen 5-325 MG HYDROcodone-Acetaminophen 5-325 MG 12/31/2020 12:00:00 AM EDT 1.0 {tablet_as_needed} suspended HYDROcodone-Acetaminophen 5- 325 MG eCW1 ([facility]) HYDROcodone Bitartrate ER 10 MG HYDROcodone Bitartrate ER 10 MG 12/31/2020 12:00:00 AM EDT 1.0 {capsule} active HYDROcodone Bitartrate ER 10 MG eCW1 ([facility]) HYDROcodone Bitartrate ER 10 MG HYDROcodone Bitartrate ER 10 MG 12/31/2020 12:00:00 AM EDT 1.0 {capsule} active eCW1 ([facility]) HYDROcodone Bitartrate ER 10 MG HYDROcodone Bitartrate ER 10 MG 12/31/2020 12:00:00 AM EDT 1.0 {capsule} suspended HYDROcodone Bitartrate ER 10 MG eCW1 ([facility]) HYDROcodone Bitartrate ER 10 MG HYDROcodone Bitartrate ER 10 MG 12/31/2020 12:00:00 AM EDT 1.0 {capsule} active HYDROcodone Bitartrate ER 10 MG eCW1 ([facility]) Acetaminophen 325 MG / Hydrocodone Bee trate 5 MG Oral Tablet HYDROcodone- Acetaminophen 5-325 MG HYDROcodone-Acetaminophen 5-325 MG 12/31/2020 12:00:00 AM EDT 1.0 {tablet_as_needed} active HYDROcodone-Acetaminophen 5-325 MG eCW1 ([facility]) Acetaminophen 325 MG / Hydrocodone Bitartrate 5 MG Ora l Tablet 5-325 mg HYDROCODONE/ACETAMINOPHEN 12/31/2020 12:00:00 AM EDT tablet 20 TAKE ONE TABLET BY MOUTH EVERY 6 HOURS NEEDED, MAXIMUM DAILY DOSE = FOUR TABLETS TAKE ONE TABLET BY MOUTH EVERY 6 HOURS NEEDED, MAXIMUM DAILY DOSE = FOUR TABLETS SOLD: 12/31/2020 [facility] Acetaminophen 325 MG / Hydrocodone Bee trate 5 MG Oral Tablet HYDROcodone- Acetaminophen 5-325 MG HYDROcodone-Acetaminophen 5-325 MG 12/31/2020 12:00:00 AM EDT 1.0 {tablet_as_needed} active HYDROcodone-Acetaminophen 5-325 MG eCW1 ([facility]) HYDROcodone Bitartrate ER 10 MG HYDROcodone Bitartrate ER 10 MG 12/31/2020 12:00:00 AM EDT 1.0 {capsule} active HYDROcodone Bitartrate ER 10 MG eCW1 ([facility]) 100 mg 12/29/2020 12:00:00 AM EDT capsule 60 TAKE ONE CAPSULE BY MOUTH TWO TIMES A DAY TAKE ONE CAPSULE BY MOUTH TWO TIMES A DAY SOLD: 12/29/2020 [facility] 17 gram/dose 12/29/2020 12:00:00 AM EDT powder 238 TAKE 17 GRAMS BY MOUTH DAILY DISSOLVED IN 4-8 OUNCES OF FLUID TAKE 17 GRAMS BY MOUTH DAILY DISSOLVED I N 4-8 OUNCES OF FLUID SOLD: 12/29/2020 [facility] 15 mg 12/27/2020 12:00:00 AM EDT tablet 20 TAKE ONE TABLET BY MOUTH FOUR TIMES A DAY NEEDED FOR PAIN MAXIMUM DAILY DOSE = FOUR TABLETS TAKE ONE TABLET BY MOUTH FOUR TIMES A DAY NEEDED FOR PAIN MAXIMUM DAILY DOSE = FOUR TABLETS SOLD: 12/27/2020 [facility] 5,000 unit/mL 12/25/2020 12:00:00 AM EDT solution 10 INJECT 1ML UNDER THE SKIN EVERY 12 HOURS FOR 5 DAYS INJECT 1ML UNDER THE SKIN EVERY 12 HOURS FOR 5 DAYS SOLD: 12/25/2020 [facility] heparin sodium, porcine 5000 UNT/ML Inje ctable Solution Heparin Sodium (Porcine) 5000 UNIT/ML Heparin Sodium (Porcine) 5000 UNIT/ML 12/24/2020 12:00:00 AM EDT 1.0 {ml} active Heparin Sodium (Porcine) 5000 UNIT/ML eCW1 ([facility]) heparin sodium, porcine 5000 UNT/ML Inje ctable Solution Heparin Sodium (Porcine) 5000 UNIT/ML Heparin Sodium (Porcine) 5000 UNIT/ML 12/24/2020 12:00:00 AM EDT 1.0 {ml} suspended Heparin Sodiu m (Porcine) 5000 UNIT/ML eCW1 ([facility]) heparin sodium, porcine 5000 UNT/ML Inje ctable Solution Heparin Sodium (Porcine) 5000 UNIT/ML Heparin Sodium (Porcine) 5000 UNIT/ML 12/24/2020 12:00:00 AM EDT 1.0 {ml} active Heparin Sodium (Porcine) 5000 UNIT/ML eCW1 ([facility]) heparin sodium, porcine 5000 UNT/ML Inje ctable Solution Heparin Sodium (Porcine) 5000 UNIT/ML Heparin Sodium (Porcine) 5000 UNIT/ML 12/24/2020 12:00:00 AM EDT 1.0 {ml} suspended Heparin Sodiu m (Porcine) 5000 UNIT/ML eCW1 ([facility]) heparin sodium, porcine 5000 UNT/ML Inje ctable Solution Heparin Sodium (Porcine) 5000 UNIT/ML Heparin Sodium (Porcine) 5000 UNIT/ML 12/24/2020 12:00:00 AM EDT 1.0 {ml} active Heparin Sodium (Porcine) 5000 UNIT/ML eCW1 ([facility]) heparin sodium, porcine 5000 UNT/ML Inje ctable Solution Heparin Sodium (Porcine) 5000 UNIT/ML Heparin Sodium (Porcine) 5000 UNIT/ML 12/24/2020 12:00:00 AM EDT 1.0 {ml} suspended Heparin Sodiu m (Porcine) 5000 UNIT/ML eCW1 ([facility]) heparin sodium, porcine 5000 UNT/ML Inje ctable Solution Heparin Sodium (Porcine) 5000 UNIT/ML Heparin Sodium (Porcine) 5000 UNIT/ML 12/24/2020 12:00:00 AM EDT 1.0 {ml} active Heparin Sodium (Porcine) 5000 UNIT/ML eCW1 ([facility]) heparin sodium, porcine 5000 UNT/ML Inje ctable Solution Heparin Sodium (Porcine) 5000 UNIT/ML Heparin Sodium (Porcine) 5000 UNIT/ML 12/24/2020 12:00:00 AM EDT 1.0 {ml} active Heparin Sodium (Porcine) 5000 UNIT/ML eCW1 ([facility]) heparin sodium, porcine 5000 UNT/ML Inje ctable Solution Heparin Sodium (Porcine) 5000 UNIT/ML Heparin Sodium (Porcine) 5000 UNIT/ML 12/24/2020 12:00:00 AM EDT 1.0 {ml} active Heparin Sodium (Porcine) 5000 UNIT/ML eCW1 ([facility]) heparin sodium, porcine 5000 UNT/ML Inje ctable Solution Heparin Sodium (Porcine) 5000 UNIT/ML Heparin Sodium (Porcine) 5000 UNIT/ML 12/24/2020 12:00:00 AM EDT 1.0 {ml} active Heparin Sodium (Porcine) 5000 UNIT/ML eCW1 ([facility]) heparin sodium, porcine 5000 UNT/ML Inje ctable Solution Heparin Sodium (Porcine) 5000 UNIT/ML Heparin Sodium (Porcine) 5000 UNIT/ML 12/24/2020 12:00:00 AM EDT 1.0 {ml} active eCW1 ([facility]) heparin sodium, porcine 5000 UNT/ML Inje ctable Solution Heparin Sodium (Porcine) 5000 UNIT/ML Heparin Sodium (Porcine) 5000 UNIT/ML 12/24/2020 12:00:00 AM EDT 1.0 {ml} active Heparin Sodium (Porcine) 5000 UNIT/ML eCW1 ([facility]) heparin sodium, porcine 5000 UNT/ML Inje ctable Solution Heparin Sodium (Porcine) 5000 UNIT/ML Heparin Sodium (Porcine) 5000 UNIT/ML 12/24/2020 12:00:00 AM EDT 1.0 {ml} active Heparin Sodium (Porcine) 5000 UNIT/ML eCW1 ([facility]) heparin sodium, porcine 5000 UNT/ML Inje ctable Solution Heparin Sodium (Porcine) 5000 UNIT/ML Heparin Sodium (Porcine) 5000 UNIT/ML 12/24/2020 12:00:00 AM EDT 1.0 {ml} active Heparin Sodium (Porcine) 5000 UNIT/ML eCW1 ([facility]) heparin sodium, porcine 5000 UNT/ML Inje ctable Solution Heparin Sodium (Porcine) 5000 UNIT/ML Heparin Sodium (Porcine) 5000 UNIT/ML 12/24/2020 12:00:00 AM EDT 1.0 {ml} suspended Heparin Sodiu m (Porcine) 5000 UNIT/ML eCW1 ([facility]) heparin sodium, porcine 5000 UNT/ML Inje ctable Solution Heparin Sodium (Porcine) 5000 UNIT/ML Heparin Sodium (Porcine) 5000 UNIT/ML 12/24/2020 12:00:00 AM EDT 1.0 {ml} active Heparin Sodium (Porcine) 5000 UNIT/ML eCW1 ([facility]) heparin sodium, porcine 5000 UNT/ML Inje ctable Solution Heparin Sodium (Porcine) 5000 UNIT/ML Heparin Sodium (Porcine) 5000 UNIT/ML 12/24/2020 12:00:00 AM EDT 1.0 {ml} active Heparin Sodium (Porcine) 5000 UNIT/ML eCW1 ([facility]) Heparin Sodium (Porcine) 5000 unit/mL [facility] 12/18/2020 12:00:00 AM EDT active Heparin Sodium (Porcine) 5000 un it/mL eCW1 ([facility]) Heparin Sodium (Porcine) 5000 unit/mL [facility] 12/18/2020 12:00:00 AM EDT active eCW1 ([facility]) Heparin Sodium (Porcine) 5000 unit/mL [facility] 12/18/2020 12:00:00 AM EDT suspended Heparin Sodium (Porcine) 5000 un it/mL eCW1 ([facility]) Heparin Sodium (Porcine) 5000 unit/mL [facility] 12/18/2020 12:00:00 AM EDT active Heparin Sodium (Porcine) 5000 un it/mL eCW1 ([facility]) Heparin Sodium (Porcine) 5000 unit/mL [facility] 12/18/2020 12:00:00 AM EDT suspended Heparin Sodium (Porcine) 5000 un it/mL eCW1 ([facility]) Heparin Sodium (Porcine) 5000 unit/mL [facility] 12/18/2020 12:00:00 AM EDT active Heparin Sodium (Porcine) 5000 un it/mL eCW1 ([facility]) Heparin Sodium (Porcine) 5000 unit/mL [facility] 12/18/2020 12:00:00 AM EDT active Heparin Sodium (Porcine) 5000 un it/mL eCW1 ([facility]) Heparin Sodium (Porcine) 5000 unit/mL K 12/18/2020 12:00:00 AM EDT active Heparin Sodium (Porcine) 5000 un it/mL eCW1 ([facility]) Heparin Sodium (Porcine) 5000 unit/mL K 12/18/2020 12:00:00 AM EDT active Heparin Sodium (Porcine) 5000 un it/mL eCW1 ([facility]) Heparin Sodium (Porcine) 5000 unit/mL K 12/18/2020 12:00:00 AM EDT suspended Heparin Sodium (Porcine) 5000 un it/mL eCW1 ([facility]) Heparin Sodium (Porcine) 5000 unit/mL [facility] 12/18/2020 12:00:00 AM EDT active Heparin Sodium (Porcine) 5000 un it/mL eCW1 ([facility]) Heparin Sodium (Porcine) 5000 unit/mL [facility] 12/18/2020 12:00:00 AM EDT active Heparin Sodium (Porcine) 5000 un it/mL eCW1 ([facility]) Heparin Sodium (Porcine) 5000 unit/mL [facility] 12/18/2020 12:00:00 AM EDT active Heparin Sodium (Porcine) 5000 un it/mL eCW1 ([facility]) Heparin Sodium (Porcine) 5000 unit/mL K 12/18/2020 12:00:00 AM EDT active Heparin Sodium (Porcine) 5000 un it/mL eCW1 ([facility]) Heparin Sodium (Porcine) 5000 unit/mL K 12/18/2020 12:00:00 AM EDT active Heparin Sodium (Porcine) 5000 un it/mL eCW1 ([facility]) Heparin Sodium (Porcine) 5000 unit/mL K 12/18/2020 12:00:00 AM EDT active Heparin Sodium (Porcine) 5000 un it/mL eCW1 ([facility]) Heparin Sodium (Porcine) 5000 unit/mL K 12/18/2020 12:00:00 AM EDT suspended Heparin Sodium (Porcine) 5000 un it/mL eCW1 ([facility]) Heparin Sodium (Porcine) 5000 unit/mL K 12/18/2020 12:00:00 AM EDT active Heparin Sodium (Porcine) 5000 un it/mL eCW1 ([facility]) 750 mg 12/17/2020 12:00:00 AM EDT tablet 90 TAKE ONE TABLET BY MOUTH THREE TIMES A DAY TAKE ONE TABLET BY MOUTH THREE TIMES A DAY SOLD: 12/17/2020 [facility] 5 mg 12/15/2020 12:00:00 AM EDT tablet 6 TAKE ONE TABLET BY MOUTH EVERY 8 HOURS NEEDED FOR PAIN MAXIMUM DAILY DOSE = 2 TABLETS TAKE ONE TABLET BY MOUTH EVERY 8 HOURS NEEDED FOR PAIN MAXIMUM DAILY DOSE = 2 TABLETS SOLD: 12/15/2020 [facility] benzonatate 100 MG Oral Capsule BENZONATATE 11/24/2020 12:00:00 AM EDT capsule 30 TAKE ONE CAPSULE BY MOUTH THREE TIMES A DAY FOR COUGH TAKE ONE CAPSULE BY MOUTH THREE TIMES A DAY FOR COUGH SOLD: 11/26/2020 [facility] 500 mg 11/24/2020 12:00:00 AM EDT tablet 4 TAKE ONE TABLET BY MOUTH ONCE DAILY TAKE ONE TABLET BY MOUTH ONCE DAILY SOLD: 11/26/2020 [facility] 20 mg 11/20/2020 12:00:00 AM EDT tablet 30 TAKE ONE TABLET BY MOUTH AT BEDTIME TAKE ONE TABLET BY MOUTH AT BEDTIME SOLD: 11/26/2020 [facility] 20 mg 11/20/2020 12:00:00 AM EDT tablet 30 TAKE ONE TABLET BY MOUTH AT BEDTIME TAKE ONE TABLET BY MOUTH AT BEDTIME SOLD: 01/07/2021 [facility] 25 mg 11/20/2020 12:00:00 AM EDT tablet 30 TAKE ONE TABLET BY MOUTH EVERY DAY NEEDED FOR ANXIETY TAKE ONE TABLET BY MOUTH EVERY DAY NE EDED FOR ANXIETY SOLD: 11/26/2020 [facility] 10 mg 11/13/2020 12:00:00 AM EDT tablet 60 TAKE ONE TABLET BY MOUTH TWICE A DAY NEEDED FOR ANXIETY TAKE ONE TABLET BY MOUTH TWICE A DAY NEEDED FOR ANXIETY SOLD: 11/18/2020 [facility] 5 mg 11/11/2020 12:00:00 AM EDT tablet 60 TAKE ONE TABLET BY MOUTH TWICE A DAY TAKE ONE TABLET BY MOUTH TWICE A DAY SOLD: 04/11/2021 [facility] 5 mg 11/11/2020 12:00:00 AM EDT tablet 60 TAKE ONE TABLET BY MOUTH TWICE A DAY TAKE ONE TABLET BY MOUTH TWICE A DAY SOLD: 11/13/2020 [facility] atorvastatin 20 MG Oral Tablet ATORVASTATIN CALCIUM 11/11/2020 1 2:00:00 AM EDT tablet 30 TAKE ONE TABLET BY MOUTH EVERY D AY TAKE ONE TABLET BY MOUTH EVERY DAY SOLD: 11/13/2020 [facility] 5 mg 11/11/2020 12:00:00 AM EDT tablet 60 TAKE ONE TABLET BY MOUTH TWICE A DAY TAKE ONE TABLET BY MOUTH TWICE A DAY SOLD: 01/07/2021 [facility] 5 mg 11/11/2020 12:00:00 AM EDT tablet 60 TAKE ONE TABLET BY MOUTH TWICE A DAY TAKE ONE TABLET BY MOUTH TWICE A DAY SOLD: 05/13/2021 [facility] atorvastatin 20 MG Oral Tablet ATORVASTATIN CALCIUM 11/11/2020 1 2:00:00 AM EDT tablet 30 TAKE ONE TABLET BY MOUTH EVERY D AY TAKE ONE TABLET BY MOUTH EVERY DAY SOLD: 01/07/2021 [facility] 5 mg 11/11/2020 12:00:00 AM EDT tablet 60 TAKE ONE TABLET BY MOUTH TWICE A DAY TAKE ONE TABLET BY MOUTH TWICE A DAY SOLD: 02/18/2021 [facility] 5 mg 11/11/2020 12:00:00 AM EDT tablet 60 TAKE ONE TABLET BY MOUTH TWICE A DAY TAKE ONE TABLET BY MOUTH TWICE A DAY SOLD: 03/21/2021 [facility] Nystatin 100 UNT/MG Topical Powder Nystatin 100222 UNI T/GM Nystatin 172229 UNIT/GM 11/08/2020 12:00:00 AM EDT 1.0 {application} active Nystatin 604166 UNIT/GM eCW1 ([facility]) Nystatin 100 UNT/MG Topical Powder Nystatin 830703 UNI T/GM Nystatin 867819 UNIT/GM 11/08/2020 12:00:00 AM EDT 1.0 {application} active Nystatin 585556 UNIT/GM eCW1 ([facility]) Nystatin 100 UNT/MG Topical Powder Nystatin 397928 UNI T/GM Nystatin 508857 UNIT/GM 11/08/2020 12:00:00 AM EDT 1.0 {application} active Nystatin [id number] UNIT/GM eCW1 ([facility]) Nystatin 100 UNT/MG Topical Powder Nystatin 983836 UNI T/GM Nystatin 021926 UNIT/GM 11/08/2020 12:00:00 AM EDT 1.0 {application} act ash eCW1 ([facility]) Nystatin 100 UNT/MG Topical Powder Nystatin 228492 UNI T/GM Nystatin 371705 UNIT/GM 11/08/2020 12:00:00 AM EDT 1.0 {application} active Nystatin 240381 UNIT/GM eCW1 ([facility]) Nystatin 100 UNT/MG Topical Powder Nystatin 238933 UNI T/GM Nystatin 172936 UNIT/GM 11/08/2020 12:00:00 AM EDT 1.0 {application} suspended Nystatin 554193 UNIT/GM eCW1 ([facility]) Nystatin 100 UNT/MG Topical Powder Nystatin 701000 UNI T/GM Nystatin 611859 UNIT/GM 11/08/2020 12:00:00 AM EDT 1.0 {application} active Nystatin 761991 UNIT/GM eCW1 ([facility]) Nystatin 100 UNT/MG Topical Powder Nystatin 880735 UNI T/GM Nystatin 256362 UNIT/GM 11/08/2020 12:00:00 AM EDT 1.0 {application} active Nystatin 817198 UNIT/GM eCW1 ([facility]) Nystatin 100 UNT/MG Topical Powder Nystatin 701555 UNI T/GM Nystatin 907554 UNIT/GM 11/08/2020 12:00:00 AM EDT 1.0 {application} active Nystatin 436250 UNIT/GM eCW1 ([facility]) Nystatin 100 UNT/MG Topical Powder Nystatin 125028 UNI T/GM Nystatin 375347 UNIT/GM 11/08/2020 12:00:00 AM EDT 1.0 {application} active Nystatin 266609 UNIT/GM eCW1 ([facility]) Nystatin 100 UNT/MG Topical Powder Nystatin 156777 UNI T/GM Nystatin 050352 UNIT/GM 11/08/2020 12:00:00 AM EDT 1.0 {application} active Nystatin 541511 UNIT/GM eCW1 ([facility]) Nystatin 100 UNT/MG Topical Powder Nystatin 236878 UNI T/GM Nystatin 739578 UNIT/GM 11/08/2020 12:00:00 AM EDT 1.0 {application} active Nystatin [id number] UNIT/GM eCW1 ([facility]) Nystatin 100 UNT/MG Topical Powder Nystatin 910601 UNI T/GM Nystatin 250903 UNIT/GM 11/08/2020 12:00:00 AM EDT 1.0 {application} active Nystatin 670749 UNIT/GM eCW1 ([facility]) Nystatin 100 UNT/MG Topical Powder Nystatin 862976 UNI T/GM Nystatin 280228 UNIT/GM 11/08/2020 12:00:00 AM EDT 1.0 {application} active Nystatin 744683 UNIT/GM eCW1 ([facility]) Nystatin 100 UNT/MG Topical Powder Nystatin 091422 UNI T/GM Nystatin 430595 UNIT/GM 11/08/2020 12:00:00 AM EDT 1.0 {application} active Nystatin 432244 UNIT/GM eCW1 ([facility]) Nystatin 100 UNT/MG Topical Powder Nystatin 523105 UNI T/GM Nystatin 239282 UNIT/GM 11/08/2020 12:00:00 AM EDT 1.0 {application} suspended Nystatin 335853 UNIT/GM eCW1 ([facility]) Nystatin 100 UNT/MG Topical Powder Nystatin 473872 UNI T/GM Nystatin 232846 UNIT/GM 11/08/2020 12:00:00 AM EDT 1.0 {application} suspended Nystatin 744643 UNIT/GM eCW1 ([facility]) Nystatin 100 UNT/MG Topical Powder Nystatin 901195 UNI T/GM Nystatin 619867 UNIT/GM 11/08/2020 12:00:00 AM EDT 1.0 {application} active Nystatin [id number] UNIT/GM eCW1 ([facility]) Nystatin 100 UNT/MG Topical Powder Nystatin 398088 UNI T/GM Nystatin 241925 UNIT/GM 11/08/2020 12:00:00 AM EDT 1.0 {application} active Nystatin [id number] UNIT/GM eCW1 ([facility]) Nystatin 100 UNT/MG Topical Powder Nystatin 801607 UNI T/GM Nystatin 360432 UNIT/GM 11/08/2020 12:00:00 AM EDT 1.0 {application} suspended Nystatin 840756 UNIT/GM eCW1 ([facility]) Nystatin 100 UNT/MG Topical Powder Nystatin 048381 UNI T/GM Nystatin 561380 UNIT/GM 11/08/2020 12:00:00 AM EDT 1.0 {application} active Nystatin [id number] UNIT/GM eCW1 ([facility]) Nystatin 100 UNT/MG Topical Powder Nystatin 219096 UNI T/GM Nystatin 967788 UNIT/GM 11/08/2020 12:00:00 AM EDT 1.0 {application} active Nystatin [id number] UNIT/GM eCW1 ([facility]) Nystatin 100 UNT/MG Topical Powder Nystatin 877427 UNI T/GM Nystatin 939808 UNIT/GM 11/08/2020 12:00:00 AM EDT 1.0 {application} active Nystatin [id number] UNIT/GM eCW1 ([facility]) 25 mg 10/25/2020 12:00:00 AM EDT tablet 30 TAKE ONE TABLET BY MOUTH ONCE DAILY NEEDED FOR ANXIETY TAKE ONE TABLET BY MOUTH ONCE DAILY N EEDED FOR ANXIETY SOLD: 10/25/2020 [facility] Clobetasol Prop Emollient Base 0.05 % Clobetasol Prop Emolli ent Base 0.05 % 10/09/2020 12:00:00 AM EDT active Clobetasol Prop Emollient Base 0.05 % eCW1 ([facility]) Clobetasol Prop Emollient Base 0.05 % Clobetasol Prop Emolli ent Base 0.05 % 10/09/2020 12:00:00 AM EDT active Clobetasol Prop Emollient Base 0.05 % eCW1 ([facility]) Clobetasol Prop Emollient Base 0.05 % Clobetasol Prop Emolli ent Base 0.05 % 10/09/2020 12:00:00 AM EDT active Clobetasol Prop Emollient Base 0.05 % eCW1 ([facility]) Clobetasol Prop Emollient Base 0.05 % Clobetasol Prop Emolli ent Base 0.05 % 10/09/2020 12:00:00 AM EDT suspended Clobetasol Prop Emollient Base 0.05 % eCW1 ([facility]) Clobetasol Prop Emollient Base 0.05 % Clobetasol Prop Emolli ent Base 0.05 % 10/09/2020 12:00:00 AM EDT active Clobetasol Prop Emollient Base 0.05 % eCW1 ([facility]) Clobetasol Prop Emollient Base 0.05 % Clobetasol Prop Emolli ent Base 0.05 % 10/09/2020 12:00:00 AM EDT active Clobetasol Prop Emollient Base 0.05 % eCW1 ([facility]) Clobetasol Prop Emollient Base 0.05 % Clobetasol Prop Emolli ent Base 0.05 % 10/09/2020 12:00:00 AM EDT active eCW1 ([facility]) Clobetasol Prop Emollient Base 0.05 % Clobetasol Prop Emolli ent Base 0.05 % 10/09/2020 12:00:00 AM EDT suspended Clobetasol Prop Emollient Base 0.05 % eCW1 ([facility]) Clobetasol Prop Emollient Base 0.05 % Clobetasol Prop Emolli ent Base 0.05 % 10/09/2020 12:00:00 AM EDT suspended Clobetasol Prop Emollient Base 0.05 % eCW1 ([facility]) Clobetasol Prop Emollient Base 0.05 % Clobetasol Prop Emolli ent Base 0.05 % 10/09/2020 12:00:00 AM EDT active Clobetasol Prop Emollient Base 0.05 % eCW1 ([facility]) Clobetasol Prop Emollient Base 0.05 % Clobetasol Prop Emolli ent Base 0.05 % 10/09/2020 12:00:00 AM EDT active Clobetasol Prop Emollient Base 0.05 % eCW1 ([facility]) Clobetasol Prop Emollient Base 0.05 % Clobetasol Prop Emolli ent Base 0.05 % 10/09/2020 12:00:00 AM EDT active Clobetasol Prop Emollient Base 0.05 % eCW1 ([facility]) Clobetasol Prop Emollient Base 0.05 % Clobetasol Prop Emolli ent Base 0.05 % 10/09/2020 12:00:00 AM EDT active Clobetasol Prop Emollient Base 0.05 % eCW1 ([facility]) Clobetasol Prop Emollient Base 0.05 % Clobetasol Prop Emolli ent Base 0.05 % 10/09/2020 12:00:00 AM EDT active Clobetasol Prop Emollient Base 0.05 % eCW1 ([facility]) Clobetasol Prop Emollient Base 0.05 % Clobetasol Prop Emolli ent Base 0.05 % 10/09/2020 12:00:00 AM EDT active Clobetasol Prop Emollient Base 0.05 % eCW1 ([facility]) Clobetasol Prop Emollient Base 0.05 % Clobetasol Prop Emolli ent Base 0.05 % 10/09/2020 12:00:00 AM EDT active Clobetasol Prop Emollient Base 0.05 % eCW1 ([facility]) Clobetasol Prop Emollient Base 0.05 % Clobetasol Prop Emolli ent Base 0.05 % 10/09/2020 12:00:00 AM EDT active Clobetasol Prop Emollient Base 0.05 % eCW1 ([facility]) Clobetasol Prop Emollient Base 0.05 % Clobetasol Prop Emolli ent Base 0.05 % 10/09/2020 12:00:00 AM EDT active Clobetasol Prop Emollient Base 0.05 % eCW1 ([facility]) Clobetasol Prop Emollient Base 0.05 % Clobetasol Prop Emolli ent Base 0.05 % 10/09/2020 12:00:00 AM EDT active Clobetasol Prop Emollient Base 0.05 % eCW1 ([facility]) Clobetasol Prop Emollient Base 0.05 % Clobetasol Prop Emolli ent Base 0.05 % 10/09/2020 12:00:00 AM EDT active Clobetasol Prop Emollient Base 0.05 % eCW1 ([facility]) Clobetasol Prop Emollient Base 0.05 % Clobetasol Prop Emolli ent Base 0.05 % 10/09/2020 12:00:00 AM EDT active Clobetasol Prop Emollient Base 0.05 % eCW1 ([facility]) Clobetasol Prop Emollient Base 0.05 % Clobetasol Prop Emolli ent Base 0.05 % 10/09/2020 12:00:00 AM EDT active Clobetasol Prop Emollient Base 0.05 % eCW1 ([facility]) 0.05 % 10/09/2020 12:00:00 AM EDT cream 15 APPLY A THIN LAYER TO GROIN TWO TIMES A DAY FOR 7 DAYS APPLY A THIN LAYER TO GROIN TWO TIMES A DAY FOR 7 DAYS SOLD: 10/10/2020 [facility] Clobetasol Prop Emollient Base 0.05 % Clobetasol Prop Emolli ent Base 0.05 % 10/09/2020 12:00:00 AM EDT suspended Clobetasol Prop Emollient Base 0.05 % eCW1 ([facility]) Clobetasol Prop Emollient Base 0.05 % Clobetasol Prop Emolli ent Base 0.05 % 10/09/2020 12:00:00 AM EDT active Clobetasol Prop Emollient Base 0.05 % eCW1 ([facility]) Levaquin 750 MG UNK 09/24/2020 12:00:00 AM EST 1.0 {tablet} active Levaquin 750 MG eCW1 ([facility]) Levaquin 750 MG UNK 09/24/2020 12:00:00 AM EST 1.0 {tablet} active Levaquin 750 MG eCW1 ([facility]) Levaquin 750 MG UNK 09/24/2020 12:00:00 AM EST 1.0 {tablet} active Levaquin 750 MG eCW1 ([facility]) Levaquin 750 MG UNK 09/24/2020 12:00:00 AM EST 1.0 {tablet} active Levaquin 750 MG eCW1 ([facility]) 750 mg 09/24/2020 12:00:00 AM EST tablet 10 TAKE ONE TABLET BY MOUTH EVERY DAY FOR 10 DAYS TAKE ONE TABLET BY MOUTH EVERY DAY FOR 10 DAYS SOLD: 021 [facility] Levaquin 750 MG UNK 09/24/2020 12:00:00 AM EST 1.0 {tablet} active Levaquin 750 MG eCW1 ([facility]) 10-100 mg/5 mL 09/23/2020 12:00:00 AM EST liquid 180 TAKE 10ML BY MOUTH EVERY 4 HOURS NEEDED , MAXIMUM DAILY DOSE = 60ML TAKE 10ML BY MOUTH EVERY 4 HOURS NEEDED , MAXIMUM DAILY DOSE = 60ML SOLD: 09/23/2020 [facility] Cheratussin AC 100-10 MG/5ML UNK 09/23/2020 12:00:00 AM ES T 10.0 {ml_as_needed} active Cheratussin AC 10 0-10 MG/5ML eCW1 ([facility]) Cheratussin AC 100-10 MG/5ML UNK 09/23/2020 12:00:00 AM ES T 10.0 {ml_as_needed} active Cheratussin AC 10 0-10 MG/5ML eCW1 ([facility]) Cheratussin AC 100-10 MG/5ML UNK 09/23/2020 12:00:00 AM ES T 10.0 {ml_as_needed} active Cheratussin AC 10 0-10 MG/5ML eCW1 ([facility]) Cheratussin AC 100-10 MG/5ML UNK 09/23/2020 12:00:00 AM ES T 10.0 {ml_as_needed} active Cheratussin AC 10 0-10 MG/5ML eCW1 ([facility]) Cheratussin AC 100-10 MG/5ML UNK 09/23/2020 12:00:00 AM ES T 10.0 {ml_as_needed} active Cheratussin AC 10 0-10 MG/5ML eCW1 ([facility]) 20 mg 09/16/2020 12:00:00 AM EST tablet 30 TAKE ONE TABLET BY MOUTH EVERY DAY AT BEDTIME TAKE ONE TABLET BY MOUTH EVERY DAY AT BEDTIME SOLD: 09/17/2020 [facility] 20 mg 09/16/2020 12:00:00 AM EST tablet 30 TAKE ONE TABLET BY MOUTH EVERY DAY AT BEDTIME TAKE ONE TABLET BY MOUTH EVERY DAY AT BEDTIME SOLD: 10/25/2020 [facility] Clonidine Hydrochloride 0.1 MG Oral Tablet CLONIDINE HCL 09/16/2020 12:00:00 AM EST tablet 15 TAKE ONE-HALF TABLET BY MOUT H EVERY DAY NEEDED FOR ANGER TAKE ONE-HALF TABLET BY MOUTH EVERY DAY NEEDED FOR ANGER SOLD: 09/17/2020 [facility] 5 mg 09/11/2020 12:00:00 AM EST tablet 60 TAKE ONE TABLET BY MOUTH TWO TIMES A DAY TAKE ONE TABLET BY MOUTH TWO TIMES A DAY SOLD: 10/25/2020 [facility] 5 mg 09/11/2020 12:00:00 AM EST tablet 60 TAKE ONE TABLET BY MOUTH TWO TIMES A DAY TAKE ONE TABLET BY MOUTH TWO TIMES A DAY SOLD: 09/11/2020 [facility] 750 mg 09/11/2020 12:00:00 AM EST tablet 90 TAKE ONE TABLET BY MOUTH THREE TIMES A DAY TAKE ONE TABLET BY MOUTH THREE TIMES A DAY SOLD: 09/11/2020 [facility] 50 mcg/actuation 09/11/2020 12:00:00 AM EST spray,suspension 16 USE 1 SPRAY IN EACH NOSTRIL ONCE A DAY USE 1 SPRAY IN EACH NOSTRIL ONCE A DAY SOLD: 10/25/2020 [facility] 750 mg 09/11/2020 12:00:00 AM EST tablet 90 TAKE ONE TABLET BY MOUTH THREE TIMES A DAY TAKE ONE TABLET BY MOUTH THREE TIMES A DAY SOLD: 10/25/2020 [facility] 50 mcg/actuation 09/11/2020 12:00:00 AM EST spray,suspension 16 USE 1 SPRAY IN EACH NOSTRIL ONCE A DAY USE 1 SPRAY IN EACH NOSTRIL ONCE A DAY SOLD: 09/11/2020 [facility] May Have - UNK 09/10/2020 12:00:00 AM EST active May Have - eCW1 ([facility]) May Have - UNK 09/10/2020 12:00:00 AM EST active May Have - eCW1 ([facility]) May Have - UNK 09/10/2020 12:00:00 AM EST active May Have - eCW1 ([facility]) May Have - UNK 09/10/2020 12:00:00 AM EST suspend ed May Have - eCW1 ([facility]) May Have - UNK 09/10/2020 12:00:00 AM EST active May Have - eCW1 ([facility]) May Have - UNK 09/10/2020 12:00:00 AM EST active May Have - eCW1 ([facility]) May Have - UNK 09/10/2020 12:00:00 AM EST suspend ed May Have - eCW1 ([facility]) May Have - UNK 09/10/2020 12:00:00 AM EST active May Have - eCW1 ([facility]) May Have - UNK 09/10/2020 12:00:00 AM EST active May Have - eCW1 ([facility]) May Have - UNK 09/10/2020 12:00:00 AM EST active May Have - eCW1 ([facility]) May Have - UNK 09/10/2020 12:00:00 AM EST active May Have - eCW1 ([facility]) May Have - UNK 09/10/2020 12:00:00 AM EST active May Have - eCW1 ([facility]) May Have - UNK 09/10/2020 12:00:00 AM EST suspend ed May Have - eCW1 ([facility]) May Have - UNK 09/10/2020 12:00:00 AM EST active May Have - eCW1 ([facility]) May Have - UNK 09/10/2020 12:00:00 AM EST active May Have - eCW1 ([facility]) May Have - UNK 09/10/2020 12:00:00 AM EST active May Have - eCW1 ([facility]) May Have - UNK 09/10/2020 12:00:00 AM EST suspend ed May Have - eCW1 ([facility]) May Have - UNK 09/10/2020 12:00:00 AM EST active May Have - eCW1 ([facility]) May Have - UNK 09/10/2020 12:00:00 AM EST active May Have - eCW1 ([facility]) May Have - UNK 09/10/2020 12:00:00 AM EST active eCW1 ([facility]) May Have - UNK 09/10/2020 12:00:00 AM EST active May Have - eCW1 ([facility]) May Have - UNK 09/10/2020 12:00:00 AM EST active May Have - eCW1 ([facility]) May Have - UNK 09/10/2020 12:00:00 AM EST active May Have - eCW1 ([facility]) May Have - UNK 09/10/2020 12:00:00 AM EST active May Have - eCW1 ([facility]) May Have - UNK 09/10/2020 12:00:00 AM EST active May Have - eCW1 ([facility]) May Have - UNK 09/10/2020 12:00:00 AM EST active May Have - eCW1 ([facility]) May Have - UNK 09/10/2020 12:00:00 AM EST active May Have - eCW1 ([facility]) May Have - UNK 09/10/2020 12:00:00 AM EST active May Have - eCW1 ([facility]) May Have - UNK 09/10/2020 12:00:00 AM EST active May Have - eCW1 ([facility]) 25 mg 08/29/2020 12:00:00 AM EST tablet 60 TAKE 1/2 TO 1 TABLET BY MOUTH TWO TIMES A DAY NEEDED FOR ANXIETY TAKE 1/2 TO 1 TABLET BY MOUTH TWO TIMES A DAY NEEDED FOR ANXIETY SOLD: 08/30/2020 [address] [facility] [employer] atorvastatin 20 MG Oral Tablet ATORVASTATIN CALCIUM 08/20/2020 1 2:00:00 AM EST tablet 30 TAKE ONE TABLET BY MOUTH EVERY D AY TAKE ONE TABLET BY MOUTH EVERY DAY SOLD: 08/21/2020 [facility] 90 mcg/actuation 08/20/2020 12:00:00 AM EST HFA aerosol inha ler 18 INHALE 2 PUFFS BY MOUTH EVERY 6 HOURS NEEDED INHALE 2 PUFFS BY MOUTH EVERY 6 HOURS NEEDED SOLD: 09/23/2020 [facility] 90 mcg/actuation 08/20/2020 12:00:00 AM EST HFA aerosol inha ler 18 INHALE 2 PUFFS BY MOUTH EVERY 6 HOURS NEEDED INHALE 2 PUFFS BY MOUTH EVERY 6 HOURS NEEDED SOLD: 05/13/2021 [facility] 90 mcg/actuation 08/20/2020 12:00:00 AM EST HFA aerosol inha ler 18 INHALE 2 PUFFS BY MOUTH EVERY 6 HOURS NEEDED INHALE 2 PUFFS BY MOUTH EVERY 6 HOURS NEEDED SOLD: 08/21/2020 [facility] 50 mg 07/21/2020 12:00:00 AM EST tablet 8 TAKE ONE TABLET BY MOUTH EVERY 6 HOURS NEEDED FOR PAIN, MAXIMUM DAILY DOSE = FOUR TABLETS TAKE ONE TABLET BY MOUTH EVERY 6 HOURS NEEDED FOR PAIN, MAXIMUM DAILY DOSE = FOUR TABLETS SOLD: 07/22/2020 [facility] Acetaminophen 325 MG / Oxycodone Hydroch loride 5 MG Oral Tablet Oxycodone- Acetaminophen 5-325 MG Oxycodone-Acetaminophen 5-325 MG 07/10/2020 12:00:00 A M EST 1.0 {tablet_as_needed} active O xycodone-Acetaminophen 5-325 MG eCW1 ([facility]) Acetaminophen 325 MG / Oxycodone Hydroch loride 5 MG Oral Tablet Oxycodone- Acetaminophen 5-325 MG Oxycodone-Acetaminophen 5-325 MG 07/10/2020 12:00:00 A M EST 1.0 {tablet_as_needed} active O xycodone-Acetaminophen 5-325 MG eCW1 ([facility]) Acetaminophen 325 MG / Oxycodone Hydroch loride 5 MG Oral Tablet Oxycodone- Acetaminophen 5-325 MG Oxycodone-Acetaminophen 5-325 MG 07/10/2020 12:00:00 A M EST 1.0 {tablet_as_needed} active O xycodone-Acetaminophen 5-325 MG eCW1 ([facility]) Acetaminophen 325 MG / Oxycodone Hydroch loride 5 MG Oral Tablet Oxycodone- Acetaminophen 5-325 MG Oxycodone-Acetaminophen 5-325 MG 07/10/2020 12:00:00 A M EST 1.0 {tablet_as_needed} active O xycodone-Acetaminophen 5-325 MG eCW1 ([facility]) Acetaminophen 325 MG / Oxycodone Hydroch loride 5 MG Oral Tablet Oxycodone- Acetaminophen 5-325 MG Oxycodone-Acetaminophen 5-325 MG 07/10/2020 12:00:00 A M EST 1.0 {tablet_as_needed} active O xycodone-Acetaminophen 5-325 MG eCW1 ([facility]) Acetaminophen 325 MG / Oxycodone Hydroch loride 5 MG Oral Tablet Oxycodone- Acetaminophen 5-325 MG Oxycodone-Acetaminophen 5-325 MG 07/10/2020 12:00:00 A M EST 1.0 {tablet_as_needed} active O xycodone-Acetaminophen 5-325 MG eCW1 ([facility]) 5-325 mg 07/10/2020 12:00:00 AM EST tablet 5 TAKE ONE TABLET BY MOUTH EVERY 6 HOURS NEEDED , MAXIMUM DAILY DOSE = 4 TABLETS TAKE ONE TABLET BY MOUTH EVERY 6 HOURS NEEDED , MAXIMUM DAILY DOSE = 4 TABLETS SOLD: 07/10/2020 [facility] Acetaminophen 325 MG / Oxycodone Hydroch loride 5 MG Oral Tablet Oxycodone- Acetaminophen 5-325 MG Oxycodone-Acetaminophen 5-325 MG 07/10/2020 12:00:00 A M EST 1.0 {tablet_as_needed} active O xycodone-Acetaminophen 5-325 MG eCW1 ([facility]) Acetaminophen 325 MG / Oxycodone Hydroch loride 5 MG Oral Tablet Oxycodone- Acetaminophen 5-325 MG Oxycodone-Acetaminophen 5-325 MG 07/10/2020 12:00:00 A M EST 1.0 {tablet_as_needed} active O xycodone-Acetaminophen 5-325 MG eCW1 ([facility]) tramadol hydrochloride 50 MG Oral Tablet TRAMADOL HCL 07/09/2020 12:00:00 AM EST tablet 8 TAKE ONE TABLET BY MOUTH CHRIS RY 6 HOURS, MAXIMUM DAILY DOSE = 4 TAKE ONE TABLET BY MOUTH EVERY 6 HOURS, MAXIMUM DAILY DOSE = 4 SOLD: 07/09/2020 [facility] 10 mg 06/06/2020 12:00:00 AM EST tablet 30 TAKE ONE TABLET BY MOUTH EVERY DAY AT BEDTIME TAKE ONE TABLET BY MOUTH EVERY DAY AT BEDTIME SOLD: 07/10/2020 [facility] 10 mg 06/06/2020 12:00:00 AM EST tablet 30 TAKE ONE TABLET BY MOUTH EVERY DAY AT BEDTIME TAKE ONE TABLET BY MOUTH EVERY DAY AT BEDTIME SOLD: 06/09/2020 [facility] 113-14 mcg/actuation 05/30/2020 12:00:00 AM EST aerosol powdr breath activated 1 INHALE ONE PUFF BY MOUTH TWICE A DAY INHA LE ONE PUFF BY MOUTH TWICE A DAY SOLD: 06/01/2020 [facility] benzonatate 100 MG Oral Capsule [Tessalon Perles] Sophia qasim Perles 100 MG Tessalon Perles 100 MG 05/30/2020 12:00:00 AM EST 1.0 {capsule_as_nee ded} active Tessalon Perles 100 MG eCW1 ([facility]) meloxicam 7.5 MG Oral Tablet Meloxicam 7.5 MG Meloxicam 7.5 MG 05/30/2020 12:00:00 AM EST 1.0 {tablet} suspended Meloxicam 7.5 MG eCW1 ([facility]) 113-14 mcg/actuation 05/30/2020 12:00:00 AM EST aerosol powdr breath activated 1 INHALE ONE PUFF BY MOUTH TWICE A DAY INHA LE ONE PUFF BY MOUTH TWICE A DAY SOLD: 07/06/2020 [facility] benzonatate 100 MG Oral Capsule [Tessalon Perles] Sophia qasim Perles 100 MG Tessalon Perles 100 MG 05/30/2020 12:00:00 AM EST 1.0 {capsule_as_nee ded} suspended Tessalon Perles 100 MG eCW1 ([facility]) meloxicam 7.5 MG Oral Tablet Meloxicam 7.5 MG Meloxicam 7.5 MG 05/30/2020 12:00:00 AM EST 1.0 {tablet} suspended Meloxicam 7.5 MG eCW1 ([facility]) benzonatate 100 MG Oral Capsule [Tessalon Perles] Sophia qasim Perles 100 MG Tessalon Perles 100 MG 05/30/2020 12:00:00 AM EST 1.0 {capsule_as_nee ded} suspended Tessalon Perles 100 MG eCW1 ([facility]) benzonatate 100 MG Oral Capsule BENZONATATE 05/30/2020 12:00:00 AM EST capsule 30 TAKE ONE CAPSULE BY MOUTH THREE TIMES A DAY NEEDED TAKE ONE CAPSULE BY MOUTH THREE TIMES A DAY NEEDED SOLD: 06/01/2020 [facility] benzonatate 100 MG Oral Capsule [Tessalon Perles] Sophia qasim Perles 100 MG Tessalon Perles 100 MG 05/30/2020 12:00:00 AM EST 1.0 {capsule_as_nee ded} suspended Tessalon Perles 100 MG eCW1 ([facility]) 113-14 mcg/actuation 05/30/2020 12:00:00 AM EST aerosol powdr breath activated 1 INHALE ONE PUFF BY MOUTH TWICE A DAY INHA LE ONE PUFF BY MOUTH TWICE A DAY SOLD: 10/25/2020 [facility] meloxicam 7.5 MG Oral Tablet Meloxicam 7.5 MG Meloxicam 7.5 MG 05/30/2020 12:00:00 AM EST 1.0 {tablet} suspended Meloxicam 7.5 MG eCW1 ([facility]) benzonatate 100 MG Oral Capsule [Tessalon Perles] Sophia qasim Perles 100 MG Tessalon Perles 100 MG 05/30/2020 12:00:00 AM EST 1.0 {capsule_as_nee ded} suspended Tessalon Perles 100 MG eCW1 ([facility]) meloxicam 7.5 MG Oral Tablet Meloxicam 7.5 MG Meloxicam 7.5 MG 05/30/2020 12:00:00 AM EST 1.0 {tablet} suspended Meloxicam 7.5 MG eCW1 ([facility]) meloxicam 7.5 MG Oral Tablet Meloxicam 7.5 MG Meloxicam 7.5 MG 05/30/2020 12:00:00 AM EST 1.0 {tablet} suspended Meloxicam 7.5 MG eCW1 ([facility]) meloxicam 7.5 MG Oral Tablet Meloxicam 7.5 MG Meloxicam 7.5 MG 05/30/2020 12:00:00 AM EST 1.0 {tablet} suspended Meloxicam 7.5 MG eCW1 ([facility]) benzonatate 100 MG Oral Capsule [Tessalon Perles] Sophia qasim Perles 100 MG Tessalon Perles 100 MG 05/30/2020 12:00:00 AM EST 1.0 {capsule_as_nee ded} suspended Tessalon Perles 100 MG eCW1 ([facility]) 113-14 mcg/actuation 05/30/2020 12:00:00 AM EST aerosol powdr breath activated 1 INHALE ONE PUFF BY MOUTH TWICE A DAY INHA LE ONE PUFF BY MOUTH TWICE A DAY SOLD: 08/13/2020 [facility] benzonatate 100 MG Oral Capsule [Tessalon Perles] Sophia qasim Perles 100 MG Tessalon Perles 100 MG 05/30/2020 12:00:00 AM EST 1.0 {capsule_as_nee ded} suspended Tessalon Perles 100 MG eCW1 ([facility]) benzonatate 100 MG Oral Capsule [Tessalon Perles] Sophia qasim Perles 100 MG Tessalon Perles 100 MG 05/30/2020 12:00:00 AM EST 1.0 {capsule_as_nee ded} suspended Tessalon Perles 100 MG eCW1 ([facility]) meloxicam 7.5 MG Oral Tablet Meloxicam 7.5 MG Meloxicam 7.5 MG 05/30/2020 12:00:00 AM EST 1.0 {tablet} suspended Meloxicam 7.5 MG eCW1 ([facility]) meloxicam 7.5 MG Oral Tablet Meloxicam 7.5 MG Meloxicam 7.5 MG 05/30/2020 12:00:00 AM EST 1.0 {tablet} active Me loxicam 7.5 MG eCW1 ([facility]) atorvastatin 20 MG Oral Tablet Atorvastatin Calcium 20 MG Atorvastatin Calcium 20 MG 05/14/2020 12:00:00 AM EDT 1.0 {tablet} activ e Atorvastatin Calcium 20 MG eCW1 ([facility]) atorvastatin 20 MG Oral Tablet ATORVASTATIN CALCIUM 05/14/2020 1 2:00:00 AM EDT tablet 30 TAKE ONE TABLET BY MOUTH EVERY D AY TAKE ONE TABLET BY MOUTH EVERY DAY SOLD: 05/17/2020 [facility] atorvastatin 20 MG Oral Tablet Atorvastatin Calcium 20 MG Atorvastatin Calcium 20 MG 05/14/2020 12:00:00 AM EDT 1.0 {tablet} suspe nded Atorvastatin Calcium 20 MG eCW1 ([facility]) atorvastatin 20 MG Oral Tablet Atorvastatin Calcium 20 MG Atorvastatin Calcium 20 MG 05/14/2020 12:00:00 AM EDT 1.0 {tablet} suspe nded Atorvastatin Calcium 20 MG eCW1 ([facility]) atorvastatin 20 MG Oral Tablet Atorvastatin Calcium 20 MG Atorvastatin Calcium 20 MG 05/14/2020 12:00:00 AM EDT 1.0 {tablet} suspe nded Atorvastatin Calcium 20 MG eCW1 ([facility]) atorvastatin 20 MG Oral Tablet Atorvastatin Calcium 20 MG Atorvastatin Calcium 20 MG 05/14/2020 12:00:00 AM EDT 1.0 {tablet} suspe nded Atorvastatin Calcium 20 MG eCW1 ([facility]) atorvastatin 20 MG Oral Tablet Atorvastatin Calcium 20 MG Atorvastatin Calcium 20 MG 05/14/2020 12:00:00 AM EDT 1.0 {tablet} suspe nded Atorvastatin Calcium 20 MG eCW1 ([facility]) atorvastatin 20 MG Oral Tablet Atorvastatin Calcium 20 MG Atorvastatin Calcium 20 MG 05/14/2020 12:00:00 AM EDT 1.0 {tablet} suspe nded Atorvastatin Calcium 20 MG eCW1 ([facility]) atorvastatin 20 MG Oral Tablet Atorvastatin Calcium 20 MG Atorvastatin Calcium 20 MG 05/14/2020 12:00:00 AM EDT 1.0 {tablet} activ e Atorvastatin Calcium 20 MG eCW1 ([facility]) atorvastatin 20 MG Oral Tablet Atorvastatin Calcium 20 MG Atorvastatin Calcium 20 MG 05/14/2020 12:00:00 AM EDT 1.0 {tablet} suspe nded Atorvastatin Calcium 20 MG eCW1 ([facility]) atorvastatin 20 MG Oral Tablet Atorvastatin Calcium 20 MG Atorvastatin Calcium 20 MG 05/14/2020 12:00:00 AM EDT 1.0 {tablet} activ e Atorvastatin Calcium 20 MG eCW1 ([facility]) 40 mg 05/10/2020 12:00:00 AM EDT capsule,delayed release (DR/EC) 60 TAKE ONE CAPSULE BY MOUTH TWICE A DAY TAKE ONE CAPSULE BY MOUTH TWICE A DAY SOLD: 10/25/2020 [facility] 10 mg 05/10/2020 12:00:00 AM EDT tablet 30 TAKE ONE TABLET BY MOUTH EVERY DAY TAKE ONE TABLET BY MOUTH EVERY DAY SOLD: 07/06/2020 [facility] 10 mg 05/10/2020 12:00:00 AM EDT tablet 90 TAKE ONE TABLET BY MOUTH THREE TIMES A DAY WITH FOOD OR MILK TAKE ONE TABLET BY MOUTH THREE TIMES A D AY WITH FOOD OR MILK SOLD: 07/06/2020 [facility] Omeprazole 40 MG Delayed Release Oral Capsule OMEPRAZOLE 05/10/2020 12:00:00 AM EDT capsule,delayed release(DR/EC) 60 TAKE ONE C APSULE BY MOUTH TWICE A DAY TAKE ONE CAPSULE BY MOUTH TWICE A DAY SOLD: 05/14/2020 [facility] 10 mg 05/10/2020 12:00:00 AM EDT tablet 30 TAKE ONE TABLET BY MOUTH EVERY DAY TAKE ONE TABLET BY MOUTH EVERY DAY SOLD: 05/14/2020 [facility] 10 mg 05/10/2020 12:00:00 AM EDT tablet 90 TAKE ONE TABLET BY MOUTH THREE TIMES A DAY WITH FOOD OR MILK TAKE ONE TABLET BY MOUTH THREE TIMES A D AY WITH FOOD OR MILK SOLD: 09/10/2020 [facility] 10 mg 05/10/2020 12:00:00 AM EDT tablet 90 TAKE ONE TABLET BY MOUTH THREE TIMES A DAY WITH FOOD OR MILK TAKE ONE TABLET BY MOUTH THREE TIMES A D AY WITH FOOD OR MILK SOLD: 10/25/2020 [facility] 10 mg 05/10/2020 12:00:00 AM EDT tablet 90 TAKE ONE TABLET BY MOUTH THREE TIMES A DAY WITH FOOD OR MILK TAKE ONE TABLET BY MOUTH THREE TIMES A D AY WITH FOOD OR MILK SOLD: 12/16/2020 [facility] 10 mg 05/10/2020 12:00:00 AM EDT tablet 30 TAKE ONE TABLET BY MOUTH EVERY DAY TAKE ONE TABLET BY MOUTH EVERY DAY SOLD: 09/10/2020 [facility] 10 mg 05/10/2020 12:00:00 AM EDT tablet 90 TAKE ONE TABLET BY MOUTH THREE TIMES A DAY WITH FOOD OR MILK TAKE ONE TABLET BY MOUTH THREE TIMES A D AY WITH FOOD OR MILK SOLD: 05/14/2020 [facility] Omeprazole 40 MG Delayed Release Oral Capsule OMEPRAZOLE 05/10/2020 12:00:00 AM EDT capsule,delayed release(DR/EC) 60 TAKE ONE C APSULE BY MOUTH TWICE A DAY TAKE ONE CAPSULE BY MOUTH TWICE A DAY SOLD: 07/06/2020 [facility] 50 mcg/actuation 04/30/2020 12:00:00 AM EDT spray,suspension 16 SPRAY ONE SPRAY IN EACH NOSTRIL EVERY DAY SPRAY ONE SPRAY IN EACH NOSTRIL EVERY DAY SOLD: 07/06/2020 [facility] 50 mcg/actuation 04/30/2020 12:00:00 AM EDT spray,suspension 16 SPRAY ONE SPRAY IN EACH NOSTRIL EVERY DAY SPRAY ONE SPRAY IN EACH NOSTRIL EVERY DAY SOLD: 05/14/2020 [facility] 10 mg 04/26/2020 12:00:00 AM EDT tablet 120 TAKE 1 TO 2 TABLETS BY MOUTH TWO TIMES A DAY NEEDED FOR ANXIETY TAKE 1 TO 2 TABLETS BY MOUTH TWO TIMES A DAY NEEDED FOR ANXIETY SOLD: 04/26/2020 [facility] 20 mg 04/26/2020 12:00:00 AM EDT capsule,delayed release (DR/EC) 60 TAKE TWO CAPSULES BY MOUTH EVERY DAY TAKE TWO CAPSULES BY MOUTH EVERY DAY SOLD: 04/26/2020 [facility] Alprazolam 0.25 MG Oral Tablet ALPRAZOLAM 03/27/2020 12:00:00 AM EDT t ablet 7 TAKE ONE TABLET BY MOUTH EVERY DAY NEEDED FOR ANXIETY, MAXIMUM DAILY DOSE = ONE TABLET TAKE ONE TABLET BY MOUTH EVERY DAY NE EDED FOR ANXIETY, MAXIMUM DAILY DOSE = ONE TABLET SOLD: 03/28/2020 [facility] 20 mg 03/19/2020 12:00:00 AM EDT capsule,delayed release (DR/EC) 60 TAKE ONE CAPSULE BY MOUTH EVERY DAY TAKE ONE CAPSULE BY MOUTH EVERY DAY SOLD: 03/22/2020 [facility] 750 mg 03/01/2020 12:00:00 AM EDT tablet 90 TAKE ONE TABLET BY MOUTH THREE TIMES A DAY TAKE ONE TABLET BY MOUTH THREE TIMES A DAY SOLD: 05/17/2020 [facility] 750 mg 03/01/2020 12:00:00 AM EDT tablet 90 TAKE ONE TABLET BY MOUTH THREE TIMES A DAY TAKE ONE TABLET BY MOUTH THREE TIMES A DAY SOLD: 03/28/2020 [facility] 15 mg 02/25/2020 12:00:00 AM EDT tablet 30 TAKE ONE TABLET BY MOUTH EVERY DAY AT BEDTIME TAKE ONE TABLET BY MOUTH EVERY DAY AT BEDTIME SOLD: 05/14/2020 [facility] 15 mg 02/25/2020 12:00:00 AM EDT tablet 30 TAKE ONE TABLET BY MOUTH EVERY DAY AT BEDTIME TAKE ONE TABLET BY MOUTH EVERY DAY AT BEDTIME SOLD: 03/22/2020 [facility] 10 mg 01/11/2020 12:00:00 AM EDT tablet 30 TAKE ONE TABLET BY MOUTH AT BEDTIME TAKE ONE TABLET BY MOUTH AT BEDTIME SOLD: 08/23/2020 [facility] 5 mg 01/09/2020 12:00:00 AM EDT tablet 60 TAKE ONE TABLET BY MOUTH TWICE A DAY TAKE ONE TABLET BY MOUTH TWICE A DAY SOLD: 05/17/2020 [facility] 5 mg 01/09/2020 12:00:00 AM EDT tablet 60 TAKE ONE TABLET BY MOUTH TWICE A DAY TAKE ONE TABLET BY MOUTH TWICE A DAY SOLD: 03/28/2020 [facility] 5 mg 01/09/2020 12:00:00 AM EDT tablet 60 TAKE ONE TABLET BY MOUTH TWICE A DAY TAKE ONE TABLET BY MOUTH TWICE A DAY SOLD: 07/06/2020 [facility] 5 mg 01/09/2020 12:00:00 AM EDT tablet 60 TAKE ONE TABLET BY MOUTH TWICE A DAY TAKE ONE TABLET BY MOUTH TWICE A DAY SOLD: 08/13/2020 [facility] 40 mg 10/12/2019 12:00:00 AM EDT capsule,delayed release (DR/EC) 60 TAKE ONE CAPSULE BY MOUTH TWICE A DAY TAKE ONE CAPSULE BY MOUTH TWICE A DAY SOLD: 09/10/2020 [facility] 40 mg 10/12/2019 12:00:00 AM EDT capsule,delayed release (DR/EC) 60 TAKE ONE CAPSULE BY MOUTH TWICE A DAY TAKE ONE CAPSULE BY MOUTH TWICE A DAY SOLD: 03/28/2020 [facility] 17 gram/dose 09/20/2019 12:00:00 AM EST powder 510 MIX 17GM (ONE CAPFUL) WITH 8 OUNCES OF FLUID ONCE DAILY MIX 17GM (ONE CAPFUL) WITH 8 OUNCES OF F LUID ONCE DAILY SOLD: 07/06/2020 [facility] 90 mcg/actuation 09/19/2019 12:00:00 AM EST HFA aerosol inha ler 18 INHALE TWO PUFFS BY MOUTH EVERY 6 HOURS NEEDED INHALE TWO PUFFS BY MOUTH EVERY 6 HOURS NEEDED SOLD: 07/06/2020 [facility] 90 mcg/actuation 09/19/2019 12:00:00 AM EST HFA aerosol inha ler 18 INHALE TWO PUFFS BY MOUTH EVERY 6 HOURS NEEDED INHALE TWO PUFFS BY MOUTH EVERY 6 HOURS NEEDED SOLD: 03/22/2020 [facility] Insurance Providers Payer name Policy type / Coverage type Policy ID Covered democrat ID Covered democrat's relationship to dominguez Policy Dominguez Plan Information [facility] COMMUNITY PLAN [id number] SP [id number] [facility] Community Plan Commercial [id number] Self [id number] [facility] [id number] SP [id number] [facility] I [id number] Self [id number] [facility] [id number] SP [id number] [facility]) O [id number] S [id number] [facility]) O [id number] S [id number] MEDICAID [id number] SP [id number] [facility] COMMUNITY PLAN [id number] 18 [id number] [facility]-Medicaid [id number] ANSI-Medicaid [id number] ANSI-Medicaid [id number] ANSI-Medicaid [id number] [facility] [id number] ANSI-Medicaid [id number] ANSI-Medicaid [id number] ANSI-Medicaid [id number] ANSI-Medicaid [id number] ANSI-Medicaid [id number] ANSI-Medicaid [id number] ANSI-Medicaid [id number] ANSI-Medicaid [id number] ANSI-Medicaid [id number] ANSI-Medicaid [id number] [facility] [id number] SP [id number] ANSI-Medicaid [id number] ANSI-Medicaid [id number] ANSI-Medicaid [id number] [facility] PLAN [facility] [id number] SP [id number] ANSI-Medicaid [id number] ANSI-Medicaid [id number] ANSI-Medicaid [id number] ANSI-Medicaid [id number] ANSI-Medicaid [id number] ANSI-Medicaid [id number] ANSI-Medicaid [id number] ANSI-Medicaid [id number] ANSI-Medicaid [id number] ANSI-Medicaid [id number] ANSI-Medicaid [id number] ANSI-Medicaid [id number] ANSI-Medicaid [id number] ANSI-Medicaid [id number] ANSI-Medicaid [id number] ANSI-Medicaid [id number] ANSI-Medicaid [id number] ANSI-Medicaid [id number] ANSI-Medicaid [id number] ANSI-Medicaid [id number] ANSI-Medicaid [id number] ANSI-Medicaid [id number] ANSI-Medicaid [id number] ANSI-Medicaid [id number] ANSI-Medicaid [id number] ANSI-Medicaid [id number] ANSI-Medicaid [id number] ANSI-Medicaid [id number] ANSI-Medicaid [id number] ANSI-Medicaid [id number] ANSI-Medicaid [id number] ANSI-Medicaid [id number] [facility] [id number] SP [id number] ANSI-Medicaid [id number] ANSI-Medicaid [id number] [facility] [id number] SP [id number] [facility] [id number] SP [id number] ANSI-Medicaid [id number] ANSI-Medicaid [id number] ANSI-Medicaid [id number] ANSI-Medicaid [id number] ANSI-Medicaid [id number] ANSI-Medicaid [id number] ANSI-Medicaid [id number] ANSI-Medicaid [id number] ANSI-Medicaid [id number] ANSI-Medicaid [id number] [facility] [id number] ANSI-Medicaid [id number] ANSI-Medicaid [id number] [facility] Medicaid [id number] Self [id number] MEDICAID [facility] [id number] D [id number] UN COMMUNITY PLAN XIX [id number] 18 [id number] ANSI-Medicaid [id number] ANSI-Medicaid [id number] ANSI-Medicaid [id number] ANSI-Medicaid [id number] ANSI-Medicaid [id number] ANSI-Medicaid [id number] ANSI-Medicaid [id number] ANSI-Medicaid [id number] ANSI-Medicaid [id number] ANSI-Medicaid [id number] ANSI-Medicaid [id number] ANSI-Medicaid [id number] MEDICAID [id number] SP [id number] ANSI-Medicaid [id number] ANSI-Medicaid [id number] ANSI-Medicaid [id number] ANSI-Medicaid [id number] MEDICAID -O/P [id number] [facility] [id number] SP [id number] [facility] [id number] SP [id number] [facility] [id number] SP [id number] [facility] [id number] SP [id number] [facility] [id number] SP [id number] SELF PAY ONLY [id number] SP [id number] [facility] [id number] SP [id number] SELF PAY ONLY [id number] SP [id number] Medicaid [facility] Part B [id number] Self [id number] [facility] MEDICAID [facility] HMO [id number] S [id number] MEDICAID BETTY [id number] UNHC AMERICHOICE XIX -O [id number] 18 [id number] MEDICAID -O/P EMERGENCY ROOM [id number] MEDICAID M [id number] S [id number] Medicaid [facility] Part B [id number] Self [id number] MEDICAID [id number] SP [id number] [facility] [id number] SP [id number] [facility] O [id number] S [id number] [facility] COMMUNITY [facility] [id number] 18 [id number] [facility] [id number] SP [id number] [facility] O [id number] S [id number] [facility] [id number] S [id number] Problems, Conditions, and Diagnoses Code Display Name Description Problem Type Effective Dates Data Source(s) E91611 Personal history of other venous thrombo sis and embolism Personal history of other venous thrombosis and embolism Diagnosis 02/18/2021 02:36:00 PM EDT [facility] Z8541 Personal history of malignant neoplasm o f cervix uteri Personal history of malignant neoplasm of cervix uteri Diagnosis 02/18/2021 02:36:00 PM ED T [facility] Z7901 half-way (current) use of anticoagulant s half-way (current) use of anticoagulants Diagnosis 02/18/2021 02:36:00 PM EDT [facility] P17168 Nicotine dependence, cigarettes, uncompl icated Nicotine dependence, cigarettes, uncomplicated Diagnosis 02/18/2021 02:36:00 PM EDT [facility] I10 Essential (primary) hypertension Essential (primary) h ypertension Diagnosis 02/18/2021 02:36:00 PM EDT [facility] 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 Diagnosis 02/18/2021 02:36: 00 PM EDT [facility] I62944 Pain in right ankle and joints of right foot Pain in right ankle and joints of right foot Diagnosis 02/18/2021 02:36:00 PM EDT [facility] L87239 Unspecified asthma, uncomplicated Unspecified as thma, uncomplicated Diagnosis 02/17/2021 08:20:00 PM EDT [facility] J208 Acute bronchitis due to other specified organisms Acute bronchitis due to other specified organisms Diagnosis 02/17/2021 08:20:00 PM EDT [facility] R0600 Dyspnea, unspecified Dyspnea, unspecified Diagnosis 02/17/2021 08:20:00 PM EDT [facility] R1084 Generalized abdominal pain Generalized abdominal pain Diagnosis 02/10/2021 11:55:00 PM EDT [facility] Z6839 Body mass index [BMI] 39.0-39.9, adult B desi mass index [BMI] 39.0-39.9, adult Diagnosis 12/13/2020 04:26:00 PM EDT [facility] E669 Obesity, unspecified Obesity, unspecified Diagnosis 12/13/2020 04:26:00 PM EDT [facility] G8929 Other chronic pain Other chronic pain Diagnosis 04:26:00 PM EDT [facility] R1031 Right lower quadrant pain Right lower quadrant pain Di agnosis 12/13/2020 04:26:00 PM EDT [facility] Z86.711 [id number] Hx pulmonary embolism Problem 07/02/2020 12: 00:00 AM EST eCW1 ([facility]) F17.200 [id number] Smoker Problem 07/02/2020 12:00:00 AM ES T eCW1 ([facility]) Z79.01 [id number] Chronic anticoagulation Problem 07/02/2020 1 2:00:00 AM EST eCW1 ([facility]) J45.31 [id number] Mild persistent asthma with acute exac erbation Problem 05/30/2020 12:00:00 AM EST eCW1 ([facility]) E78.2 675798057 Hyperlipidemia, mixed Problem 05/14/2020 12: 00:00 AM EDT eCW1 ([facility]) Z86.718 [id number] H/O deep venous thrombosis Problem 0 12:00:00 AM EDT eCW1 ([facility]) Surgeries/Procedures Procedure Description Date Indications Data Source(s) Evaluation AND/OR management - established patient (procedur e) 03/12/2021 12:00:00 [facility] Individual psychotherapy (regime/therapy) 03/03/2021 1 2:00:00 AM EDT [facility] ([facility]) Evaluation AND/OR management - established patient (procedur e) 01/14/2021 12:00:00 AM EDT [facility] Individual psychotherapy (regime/therapy) 01/02/2021 1 2:00:00 [facility] Individual psychotherapy (regime/therapy) 01/02/2021 1 2:00:00 AM EDT [facility] ([facility]) Individual psychotherapy (regime/therapy) 12/03/2020 1 2:00:00 AM [facility]) Individual psychotherapy (regime/therapy) 12/03/2020 1 2:00:00 AM EDT [facility] ([facility]) Individual psychotherapy (regime/therapy) 11/18/2020 1 2:00:00 AM [facility] Individual psychotherapy (regime/therapy) 11/18/2020 1 2:00:00 AM EDT [facility] ([facility]) Individual psychotherapy (regime/therapy) 11/18/2020 1 2:00:00 AM EDT [facility] ([facility]) Evaluation AND/OR management - established patient (procedur e) 11/13/2020 12:00:00 AM EDT [facility] Evaluation AND/OR management - established patient (procedur e) 11/13/2020 12:00:00 AM EDT [facility] ([facility] Evaluation AND/OR management - established patient (procedur e) 11/13/2020 12:00:00 AM EDT [facility] ([facility]) Evaluation AND/OR management - established patient (procedur e) 10/16/2020 12:00:00 AM EDT [facility] ([facility]) Evaluation AND/OR management - established patient (procedur e) 10/16/2020 12:00:00 AM EDT [facility] ([facility]) Evaluation AND/OR management - established patient (procedur e) 10/16/2020 12:00:00 AM EDT [facility] ([facility]) Individual psychotherapy (regime/therapy) 10/10/2020 1 2:00:00 AM EDT [facility] ([facility]) Individual psychotherapy (regime/therapy) 10/10/2020 1 2:00:00 AM EDT [facility] ([facility]) Individual psychotherapy (regime/therapy) 10/10/2020 1 2:00:00 AM EDT [facility] ([facility]) Individual psychotherapy (regime/therapy) 09/24/2020 1 2:00:00 AM EST [facility] ([facility]) Individual psychotherapy (regime/therapy) 09/24/2020 1 2:00:00 AM EST [facility] ([facility]) Individual psychotherapy (regime/therapy) 09/24/2020 1 2:00:00 AM EST [facility] ([facility]) Evaluation AND/OR management - established patient (procedur e) 09/16/2020 12:00:00 AM EST [facility] ([facility] Evaluation AND/OR management - established patient (procedur e) 09/16/2020 12:00:00 AM EST [facility] ([facility] Evaluation AND/OR management - established patient (procedur e) 09/16/2020 12:00:00 AM EST [facility] ([facility]) Individual psychotherapy (regime/therapy) 09/03/2020 1 2:00:00 AM EST [facility] ([facility]) Individual psychotherapy (regime/therapy) 09/03/2020 1 2:00:00 AM EST [facility] ([facility]) Individual psychotherapy (regime/therapy) 09/03/2020 1 2:00:00 AM EST [facility] ([facility]) Evaluation AND/OR management - established patient (procedur e) 08/29/2020 12:00:00 AM EST [facility] ([facility]) Evaluation AND/OR management - established patient (procedur e) 08/29/2020 12:00:00 AM EST [facility] ([facility]) Evaluation AND/OR management - established patient (procedur e) 08/29/2020 12:00:00 AM EST [facility] ([facility]) ECG ROUTINE ECG W/LEAST 12 LDS W/I&R 07/05/2020 12:00: 00 AM EST eCW1 ([facility]) Evaluation AND/OR management - established patient (procedur e) 06/05/2020 12:00:00 AM EST [facility] ([facility]) Evaluation AND/OR management - established patient (procedur e) 06/05/2020 12:00:00 AM EST [facility] Evaluation AND/OR management - established patient (procedur e) 06/05/2020 12:00:00 AM EST [facility] Evaluation AND/OR management - established patient (procedur e) 04/25/2020 12:00:00 AM EDT [facility] ([facility]) Evaluation AND/OR management - established patient (procedur e) 04/25/2020 12:00:00 AM EDT [facility] ([facility]) Evaluation AND/OR management - established patient (procedur e) 04/25/2020 12:00:00 AM EDT [facility] ([facility]) Individual psychotherapy (regime/therapy) 03/22/2020 1 2:00:00 AM EDT [facility]) Individual psychotherapy (regime/therapy) 03/22/2020 1 2:00:00 AM EDT [facility] ([facility]) Individual psychotherapy (regime/therapy) 03/22/2020 1 2:00:00 AM EDT [facility] ([facility]) Evaluation AND/OR management - established patient (procedur e) 03/18/2020 12:00:00 AM EDT [facility] ([facility]) Evaluation AND/OR management - established patient (procedur e) 03/18/2020 12:00:00 AM EDT [facility] ([facility]) Evaluation AND/OR management - established patient (procedur e) 03/18/2020 12:00:00 AM EDT [facility] ([facility]) Results ID Date Data Source CHLAMYDIA & GC DNA AMPLIFICAT 04/07/2021 12:00:00 AM EDT [facility] 1 ([facility]) Name Value Range Interpretation Code Description Data Rhonda rce(s) Supporting Document(s) Chlamydia trachomatis rRNA [Presence] in Unspecified specimen by Probe and target amplification method NEGATIVE NEGATIVE CHLAMYDIA DNA AMPLIFICATION [facility] ([facility]) ID Date Data Source [id number] 02/20/2021 10:04:00 [place] [address] PHONE: [phone] FAX: [phone] Name .................. : HANANE El Acct Number.................. : [id number] ROOM. ................. : TR-08 Number ................... : [id number] Stay type ............. : E/R Discharge Date......... ... : 02/18/21 Admit Date ......... : 02/18/21 Admit Phys .................... : SUDHA Denis Date of ....... : 1980 Family Phys ................... : MARA Phone .................. : [phone] Age ................................ : 41 Film# .................. .:[id number] Sex ................................. : F Unsigned transcriptions are preliminary reports and do not represent a medical or legal document [place] [id number] COMPLETE:02/18/21 16:30 KNB [id number] Reason(s): Lower Extremity Tingling RIGHT LOWER EXTREMITY DEEP VENOUS DUPLEX ULTRASOUND WITH DUPLEX AND COLOR FLOW DOPPLER ANALYSIS: INDICATION: Lower extremity tingling. FINDINGS: There is normal compressibility of the deep venous system from the external iliac through the popliteal vein with normal augmentation identified. IMPRESSION: No evidence for any underlying DVT. Examination dictated by MOSHE Goodrich. Examination was reviewed with Rosi Fall MD, radiologist at the time of this dictation. Electronically Reviewed and Signed By ROSI FALL MD , 02/20/21 10:04, [facility] Transcribe Initials: JB , Transcribe Date: 02/18/21 17:48, Dictation Date: Copy for: MARA MATEUSZ via fax Copy for: EMERGENCY DEPT via [facility]erm Copy for: 710 MED REC DISCHARGED Page 1 of 1 Name Value Range Interpretation Code Description Data Rhonda rce(s) Supporting Document(s) ID Date Data Source [id number] 02/18/2021 02:36:00 PM EDT [facility] 1 OrderSheet [facility] Emergency Department [address] [place] [address] Phone #: ext- [phone] 02/18/2021 14:35 [id number] Sex[facility] F : 1980 Age: 41yWEIGHT:104.3 kg (S)ALLERGIES: KOSTA Inhibitors, Acetaminophen, Cephalosporins, Motrin, Penicillins, SudafedCHIEF COMPLAINT: pain, swelling, altered sensation, Rt, feet, in:, Rt, ankles, pain, swelling, alteredsensationDIAGNOSIS: Peripheral venous insufficiencyLAB ORDERSOrder Description Priority Entered Acknowledged InitialedDIAGNOSTIC STUDY ORDERSOrder Description Priority Entered Acknowledged InitialedUS Lower Ext STAT 14:53 02/18/2021 14:53 Kanu Marquez Right Mateusz Carter R.N.(Oxygen?(No)) MOSHE; NOTES: DVT one year ago Reason for Study: Lower Extremity Tingling, Pain, LimbMEDICATION/IV/DRIP/FLUID ORDERSOrder Description Priority Entered Acknowledged InitialedGENERAL ORDERSOrder Description Priority Entered Acknowledged Initialed[Electronically signed by Raul Marquez R.N. (18:47 02/18/2021)][Electronically signed by Mateusz De La Garza (22:29 02/18/2021)][Electronically locked by Raul Marquez R.N. (18:47 02/18/2021)] Name Value Range Interpretation Code Description Data Rhonda rce(s) Supporting Document(s) ID Date Data Source [id number] 02/18/2021 02:36:00 PM EDT [facility] 1 Medication Reconciliation Report [facility] Emergency Department [address] [place] [address] Phone #: ext- [phone] 02/18/2021 14:35 Patient: ELIGN KOO Sex: F : 1980 Age: 41yWeight: 104.3 kgHeight/Length: 65 in.BMI: 38.3ALLERGIES: KOSTA Inhibitors, Acetaminophen, Cephalosporins, Motrin, Penicillins, SudafedThe patient's Home Medications are listed below:CONTINUE TAKING THE FOLLOWING MEDICATIONS: Abilify Oral (5 mg) 1 tablet, daily, last dose: 1999, at bedtime Atorvastatin Calcium Oral (20 mg), daily Benzonatate Oral (100 mg), 3x a day Eliquis Oral (5 mg), 2x a dayThe source(s) of the original Home Medication information:Not obtained.The following Medications were given to the patient in the Emergency Department:None.The following Medications were prescribed to the patient:None. Name Value Range Interpretation Code Description Data Rhonda [facility](s) Supporting Document(s) ID Date Data Source [id number] 02/18/2021 02:36:00 PM EDT [place] [address] Medication Administration Record [facility] Emergency Department [address] [place] [address] Phone #: ext- [phone] 02/18/2021 14:35 [id number] Sex: F : 1980 Age: 41yWeight: 104.3 kgHeight/Length: 65 inBMI: 38.3ALLERGIES: KOSTA Inhibitors, Acetaminophen, Cephalosporins, Motrin, Penicillins, SudafedDate/Time Medication Administered Medication Ordered Name Value Range Interpretation Code Description Data Rhonda rce(s) Supporting Document(s) ID Date Data Source [id number] 02/18/2021 02:36:00 PM EDT [facility] 1 General Instructions [facility] Emergency Department [address] [place] [address] Phone #: ext- [phone] 02/18/2021 14:35 Patient: ELGIN KOO [facility]#: [id number] Sex: F : 1980 Age: 41yChronic venous insufficiency of the right lower extremity with varicose veins and pain.INSTRUCTIONS(Try Compression stockings available at [employer] or [employer]).Warnings: Further evaluation is necessary. It is very important to follow up with a healthcare provider.GENERAL WARNINGS: Return or contact your physician immediately if your condition worsens orchanges unexpectedly, if not improving as expected, or if other problems arise. Specifically return if painworsens.Your Current Medications: Your current home medications have been reviewed.CONTINUE TAKING THE FOLLOWING MEDICATIONS:Abilify Oral : Tablet 5 mg, 1 tablet daily, Last: 1999, at bedtime.Atorvastatin Calcium Oral : Tablet 20 mg, daily.Benzonatate Oral : Capsule 100 mg, 3x a day.Eliquis Oral : Tablet 5 mg, 2x a day.Follow-up:Follow up with your doctor. Call for the next available appointment. Reason for referral: evaluation andtreatment. Summary of care provided to patient.Understanding of the discharge instructions verbalized by patient. ADDITIONAL INFORMATIONPeripheral Artery Disease (PAD)Peripheral artery disease (PAD) occurs when the arteries that carry blood to the limbs are narrowedor blocked. This is usually due to a buildup of a fatty substance called plaque in the dick of thearteries.PAD most often affects the arteries in the legs. When these arteries are narrowed or blocked, bloodflow to the legs is reduced. This can cause leg and foot pain and other symptoms. If severe enough,reduced blood flow to the legs can lead to tissue (gangrene) and the loss of a toe, foot, or leg.Having PAD also makes it more likely that arteries in other body a reas are blocked. For instance,arteries that carry blood to the heart or brain may be affected. This raises the chances of heart attack 2 General Instructions [facility] Emergency Department [address] [place] [address] Phone #: ext- [phone] 02/18/2021 14:35 Patient: ELGIN KOO [facility]#: [id number] Sex: F : 1980 Age: 41yand stroke.Risk factorsCertain factors can make PAD more likely. They include: Smoking Diabetes High blood pressure Unhealthy cholesterol levels Obesity Inactive lifestyle Older age Family history of PADSymptomsMany people with PAD have no symptoms. If symptoms do occur, they can include: Pain in the muscles of the calves, thighs, or hips that gets worse with activity and better with rest (intermittent claudication) Achy, tired, or heavy feeling in the legs Weakness, numbness, tingling, or loss of feeling in the legs Changes in skin color of the legs Sores on the legs and feet Cold leg, feet, or toes Pain the feet or toes even when lying down (rest pain)Home carePAD is a chronic (lifelong) condition. Treatment is focused on managing your condition and loweringyour health risks. This may include doing the following: If you smoke, quit. This helps prevent further damage to your arteries and lowers your health risks. Ask your provider about medicines or products that can help you quit smoking. Also consider joining a stop-smoking program or support group. 3 General Instructions [facility] Emergency Department [address] [place] [address] Phone #: ext- [phone] 02/18/2021 14:35 Patient: ELGIN KOO [facility]#: [id number] Sex: F : 1980 Age: 41y Be more active. This helps you lose weight and manage problems such as high bloo d pressure and unhealthy cholesterol levels. Start a walking program if advised to by your provider. Your provider may also help you form a safe exercise program that is right for your needs. Make healthy eating changes. This includes eating less fat, salt, and sugar. Take medicines for high blood pressure, unhealthy cholesterol levels, and diabetes as directed. Have your blood pressure and cholesterol levels checked as often as directed. If you have diabetes, try to keep your blood sugar well controlled. Test your blood sugar as directed. If you are overweight, talk to your provider about a weight-loss plan. Watch for cuts, scrapes, or open sores on your feet. Poor blood flow to the feet may slow healing and increase the risk of infection from these problems.Follow-up careFollow up with your healthcare provider, or as advised. If imaging tests such as ultrasound weredone, they will be reviewed by a doctor. You will be told the results and any new findings that mayaffect your care.When to seek medical adviceCall your healthcare provider right away if any of these occur: Sudden severe pain in the legs or feet Sudden cold, pale or blue color in the legs or feet Weakness or numbness in the legs or feet that worsens Any sore or wound in the legs or feet that won't heal Weak pulse in your legs or feetKnow the signs of heart attack and strokePeople with PAD are at high risk for heart attack and stroke. Knowing the signs of these problemscan help you protect your health and get help when you need it. Call 911 right away if you have anyof the following: Chest discomfort, such as pain, aching, tightness, or pressure that lasts more than a few 4 General Instructions [facility] Emergency Department [address] [place] [address] Phone #: ext- [phone] 02/18/2021 14:35 Patient: ELGIN KOO Sex: F : 1980 Age: 41y minutes, or that comes and goes Pain or discomfort in the arms, back, shoulders, neck, or jaw Shortness of breath Sweating (often a cold, clammy sweat) Nausea Lightheadedness Sudden numbness or weakness of the face, arms, or legs, especially on one side Sudden confusion or trouble speaking or understanding Sudden trouble seeing in one or both eyes Sudden trouble walking, dizziness, or loss of balance Sudden, severe headache with no known cause [employer]. [address] [place] [address], [place] [address]. All rights reserved. This information is not intended as asubstitute for professional medical care. Always follow your healthcare professional's instructions. You have been given the following additional information: Peripheral Artery Disease (PAD)(Electronically signed by MOSHE Lux 02/18/2021 22:29) Name Value Range Interpretation Code Description Data Rhonda rce(s) Supporting Document(s) ID Date Data Source [id number] 02/18/2021 02:36:00 PM EDT [facility] 1 Clinical Report - Nurses [facility] Emergency Department [address] [place] [address] Phone #: ext- [phone] 02/18/2021 14:35 Patient: ELGIN KOO Sex: F : 1980 Age: 41yTRIAGEArrived by EMS. Historian: patient. Unaccompanied. ( went to [facility] and told there is a 6 hour wait.drove back and called ambulance to come to [facility] for right lower leg blood clots, numbness paresthesia.).Triage time: 14:46 02/18/2021. Acuity: LEVEL 4.Chief Complaint: RIGHT LOWER EXTREMITY PAIN, NUMBNESS and TINGLING. Location ofsymptoms- right leg and right ankle.14:45 02/18/21. Alert. No acute distress.No injury occurred. 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 (wait was too long).SEPSIS SCREEN: SEPSIS SCREEN NEGATIVE. No suspected or confirmed signs of infection present.KAY COMA SCORE: 15- eyes open- spontaneous (4); best verbal response- oriented (5); bestmotor response- obeys commands (6). --14:51 02/18/21 Raul Marquez R.N.14:45 02/18/21. BP: 126/83. MAP: 97. HR: 78. RR: 18. O2 saturation: 96% on room air. Temp: 98.5 F.Pain level now: 12/02. --14:51 02/18/21 Raul Marquez R.N.Weight: 104.3 kg stated. Height/Length: 65 inches. BMI: 38.3. --14:44 02/18/21 Raul Marquez R.N.MedicationsAbilify Oral (Tablet 5 mg) 1 tablet, daily at bedtime, last dose 1999. Atorvastatin Calcium Oral (Tablet 20 mg), daily. Benzonatate Oral (Capsule 100 mg), 3x a day. Eliquis Oral (Tablet 5 mg), 2x a day. --14:49 02/18/21 Raul Marquez R.N.AllergiesACE Inhibitors.Acetaminophen. (SWEELS UP--MUST BE PREMEDICATED WITH BENADRYL)Cephalosporins.Motrin.Penicillins.Sudafed. --14:49 02/18/21 Raul Marquez R.N.PROBLEMS:Bronchitis. 2 Clinical Report - Nurses [facility] Emergency Department [address] [place] [address] Phone #: ext- [phone] 02/18/2021 14:35 Patient: ELGIN KOO Sex: F : 1980 Age: 41ySeizure Disorder: (Stress induced).DVT - Deep Venous Thrombosis.Back Pain.Hypertension.Other Disease.Myofascial Strain.Fibromyalgia.Schizophrenia. --14:49 02/18/21 Raul Marquez R.N.The following entry was modified by Raul Marquez R.N., 14:49 02/18/21Anxiety Reaction. --14:49 02/18/21 Raul Marquez R.N.The following entry was modified by Raul Marquez R.N., 14:02/18/21PTSD. --14:49 02/18/21 Raul Marquez R.N..14:45 02/18/21. Medication/allergy information source: the patient's previous visit record. --14:51 02/18/21SoRaul conde R.N.ADDITIONAL SURGERIES:CERVICAL CANCER..Dental Surgery.Maurice filter.Partial hysterectomy.Previous Abdominal Surgery. --14:49 02/18/21 Raul Marquez R.N.Bthqago14:45 02/18/21.SOCIAL HX: Current every day light tobacco smoker (cigarette)- less than 1/2 a pack per day. No alcoholuse or drug use. She was offered HIV testing but declined and hepatitis C testing but declined. She hasnot traveled outside the [place]Infectious disease exposure: No infectious disease exposure. The patient was not exposed to Coronavirus.SELF HARM ASSESSMENT: Self harm assessment was performed. The patient answered "no" to thequestion(s) "Have you recently felt down, depressed, or hopeless?", "Do you have thoughts of harming orkilling yourself?", "Do you have a plan for harming or killing yourself?" and "Have you recently had thoughtsabout harming or killing others?".ABUSE ASSESSMENT: No report of abuse.NUTRITIONAL RISK ASSESSMENT: The nutritional risk assessment revealed no deficiencies.FUNCTIONAL ASSESSMENT: Functional assessment: no impairments noted.LEARNING NEEDS ASSESSMENT: The learning needs assessment revealed no barriers. 3 Clinical Report - Nurses [facility] Emergency Department [address] [place] [address] Phone #: ext- [phone] 02/18/2021 14:35 Patient: ELGIN KOO Sex: F : 1980 Age: 41y FALL RISK ASSESSMENT: Fall risk assessment completed. No risk factors identified. SKIN INTEGRITY ASSESSMENT: Skin integrity risk assessment completed. No skin integrity risk identified. --14:51 02/18/21 Raul Marquez R.N. Assessment 14:45 02/18/21. She states feels the same. --14:51 02/18/21 Raul Marquez R.N. Interventions 14:45 02/18/21. Identification band on patient. To treatment room. --14:51 02/18/21 Raul Marquez R.N.PHYSICAL [id number]:42 02/18/21. Ambulatory to room.GENERAL / NEURO / PSYCH: Oriented X 4. Alert. Appears in no acute distress. Appears anxious.EXTREMITIES: Extremity pulses are within normal limits. Extremities exhibit normal ROM.Neuro-vascular status intact to the extremity. No lower extremity edema. Normal gait. Right medialankle: tenderness, swelling and ecchym osis. No erythema.SKIN: Skin intact. Skin is warm and dry. --14:52 02/18/21 Raul Marquez R.N.NURSING PROGRESS NOTES14:51 02/18/21. Reassurance given. Two patient identifiers checked. Call light placed in reach. Bedplaced in lowest position. Patient ready for evaluation- ED physician notified. --14:51 02/18/21 Raul Marquez R.N. 15:34 02/18/21. Reassurance given. Reassessment acuity: LEVEL 4. The patient reports no complaints, she is calm and resting quietly and she has had no adverse reaction. Overall patient status is improved- she states feels better. Two patient identifiers checked. Call light placed in reach. Bed placed in lowest position. Brakes of bed on. Patient ready for evaluation- PA notified. Patient waiting for results and (SONO). --15:35 02/18/21 Raul Marquez R.N.DISPOSITION / DISCHARGE 16:10 02/18/21. BP: 126/83. HR: 91. RR: 21. O2 saturation: 98%. Temp: 98.3 F. Pain level now 0/10. --16:11 02/18/21 [employer] [employer] control aideMaximo ER Tech1 16:07 02/18/21. Condition at departure: improved and stable. The goals identified in the patient's plan of care were met. Fall risk assessment completed. No risk factors identified. No learning barriers present. Discharge instructions provided and reviewed with the patient. Reviewed warnings. Reviewed medication(s). Treatments reviewed. Reviewed referral to a primary care physician. Patient verbalized understanding. Written instructions provided in Polish. The patient was discharged by the physician tv production assistant. She was discharged home. She left ambulatory and via taxi. --16:12 02/18/21 Raul Marquez R.N. 4 Clinical Report - Nurses [facility] Emergency Department [address] [place] [address] Phone #: ext- [phone] 02/18/2021 14:35 Patient: ELGIN KOO Sex: F : 1980 Age: 41yLocked/Released at 02/18/2021 18:47 by Raul Marquez R.N. Name Value Range Interpretation Code Description Data Rhonda rce(s) Supporting Document(s) ID Date Data Source [id number] 02/18/2021 02:36:00 PM EDT [facility] 1 Clinical Report - Physicians/Mid Levels [facility] Emergency Department [address] [place] [address] Phone #: ext [phone] 02/18/2021 14:35 Patient: ELGIN KOO Sex: F : 1980 Age: 41y Time Seen: 14:50 02/18/2021. Arrived- By ambulance. Historian- patient and EMS personnel.HISTORY OF PRESENT ILLNESS Chief Complaint: LOWER EXTREMITY PAIN, SWELLING and ALTERED SENSATION and ; PAIN, SWELLING and ALTERED SENSATION IN THE RIGHT ANKLE and RIGHT FOOT. This started today and is still present (went to [facility] and told there is a 6 hour wait. drove back and called ambulance to come to [facility] for right lower leg blood clots, numbness pares thesia.). It was gradual in onset and has been constant. Severity is described as being mild. It has become recently worse. The quality is noted to be aching and "pain". Symptoms located in the area of the right ankle and right foot. The patient has had swelling, but not had redness. She has had difficulty walking. No bladder dysfunction, bowel dysfunction, sensory loss or motor loss. Patient denies an injury. Similar symptoms previously. Patient has had similar symptoms several times. Recent medical care: The patient was seen recently at this facility in the emergency department (seen here last night, no c/o of lower extremity pain, swelling or tingling).REVIEW OF SYSTEMSLast normal menstrual period unknown- partial hysterectomy. No cough, chest pain, difficulty breathing,fever or skin rash. No enlarged lymph nodes, neck pain, back pain, headache or blurred vision. No sorethroat, abdominal pain, vomiting, diarrhea or black stools. No difficulty with urination or bloody stools.PAST HISTO RYProblems:Bronchitis.Seizure Disorder. (Stress induced)DVT - Deep Venous Thrombosis.Back Pain.Hypertension.Other Disease.Myofascial Strain.Fibromyalgia. Additional Surgeries: CERVICAL CANCER. . Dental Surgery. Maurice filter. Partial hysterectomy. 2 Clinical Report - Physicians/Mid Levels [facility] Emergency Department [address] [place] [address] Phone #: ext- [phone] 02/18/2021 14:35 Patient: ELGIN KOO Sex: F : 1980 Age: 41y Previous Abdominal Surgery. Medications: Abilify Oral (Tablet 5 mg) 1 tablet, daily at bedtime, last dose [id number]. Atorvastatin Calcium Oral (Tablet 20 mg), daily. Benzonatate Oral (Capsule 100 mg), 3x a day. Eliquis Oral (Tablet 5 mg), 2x a day. Allergies: KOSTA Inhibitors. Acetaminophen. (SWEELS UP--MUST BE PREMEDICATED WITH BENADRYL) Cephalosporins. Motrin. Penicillins. Sudafed.SOCIAL HISTORYLight tobacco smoker (cigarette)- less than 1/2 a pack per day. No alcohol use or drug use.PHYSICAL EXAMVital Signs: 02/18/2021 14:45 BP: 126/83. MAP: 97. HR: 78. RR: 18. O2 saturation: 96% on room air.Temp: 98.5 F. Pain level now: 12/02. Have been reviewed as normal. Oxygen saturation normal.Appearance: Alert. Oriented X3. No acute distress.Eyes: Pupils equal, round and reactive to light. Eyes normal inspection.ENT: Ears normal. Nose normal.Neck: Neck supple.CVS: Normal heart rate and rhythm. Heart sounds normal.Respiratory: No respiratory distress. Breath sounds normal.Abdomen: Nontender.Back: No tender ness.Skin: Skin intact. Skin warm and dry. Normal skin color. Normal skin turgor.Extremities: Right foot: located in the medial aspect of the foot. Neurovascular intact distally. Noerythema, tenderness, swelling, ecchymosis or deformity. Lower extremities exhibit normal ROM. Nolower extremity edema. No signs of infection involving the lower extremities. No lower extremity edema.No calf tenderness. (varicosity medial heal). Extremities otherwise negative.Gait: No limping gait.Neuro, Vascular and Tendons: No pulse deficit present. Lower extremity capillary refill not prolonged.Neuro: Oriented X 3.LABS, X-RAYS, AND EKGLower Extremity Sonography: Negative exam on the right side. The study was interpreted by theradiologist and contemporaneously by me. Interpretation time: 15:59 02/18/2021.PROGRESS AND PROCEDURESCourse of Care: 16:00 Feb 18 2021. Evaluation after observation. (Discussed neg US and pt needs to 3 Clinical Report - Physicians/Mid Levels [facility] Emergency Department [address] [place] [address] Phone #: ext- [phone] 02/18/2021 14:35 Patient: ELGIN KOO [facility]#: [id number] Sex: F : 1980 Age: 41y follow up with her PCP.). Patient counseled in person regarding the patient's stable condition, test results, diagnosis and need for follow-up. Patient agrees with plan of care. 16:Feb 18 2021. Disposition: Discharged home in good and improved condition (:Feb 18 2021).CLINICAL IMPRESSION Chronic venous insufficiency of the right lower extremity with varicose veins and pain.INSTRUCTIONS (Try Compression stockings available at [employer]). Warnings: Further evaluation is necessary. It is very important to follow up with a healthcare provider. GENERAL WARNINGS: Return or contact your physician immediately if your condition worsens or changes unexpectedly, if not improving as expected, or if other problems arise. Specifically return if pain worsens. Your Current Medications: Your current home medications have been reviewed. CONTINUE TAKING THE FOLLOWING MEDICATIONS: Abilify Oral : Tablet 5 mg, 1 tablet daily, Last: 1999, at bedtime. Atorvastatin Calcium Oral : Tablet 20 mg, daily. Benzonatate Oral : Capsule 100 mg, 3x a day. Eliquis Oral : Tablet 5 mg, 2x a day. Follow-up: Follow up with your doctor. Call for the next available appointment. Reason for referral: evaluation and treatment. Summary of care provided to patient. Understanding of the discharge instructions verbalized by patient.(Electronically signed by MOSHE Lux 02/18/2021 22:29) Name Value Range Interpretation Code Description Data Rhonda rce(s) Supporting Document(s) ID Date Data Source [id number] 02/18/2021 01:22:00 [place] [address] PHONE: [phone] FAX: [phone] Name .................. : HANANE El Acct Number.................. : [id number] ROOM. ................. : TR-03 MR Number ................... : [id number] Stay type ............. : E/R Discharge Date......... ... : 02/17/21 Admit Date ......... : 02/17/21 Admit Phys .................... : JAYCE YE Date of ....... : 1980 Family Phys ................... : Roambi Phone .................. : [phone] Age ................................ : 41 Film# .................. .:[id number] Sex ................................. : F Unsigned transcriptions are preliminary reports and do not represent a medical or legal document CHEST 2 VIEWS [id number] COMPLETE:02/17/21 21:29 MWB [id number] Reason(s): Cough FRONTAL AND LATERAL CHEST, 02/17/21: Prior examination: None available. FINDINGS: There is no acute consolidation. There is bibasilar subsegmental atelectasis and/or scarring. The lungs are mildly hyperexpanded bilaterally. The heart is not enlarged. There is no hilar adenopathy. There are no pleural effusions. There are mild degenerative changes of the spine. IMPRESSION: No evidence of significant acute pulmonary disease. Electronically Reviewed and Signed By Palomo Enciso MD , 02/18/21 13:22, AML Transcribe Initials: SSR, Transcribe Date: 02/18/21 07:15, Dictation Date: Copy for: [facility] SIMMS via fax Copy for: EMERGENCY DEPT via modem Copy for: 710 MED REC DISCHARGED Page 1 of 1 Name Value Range Interpretation Code Description Data Rhonda rce(s) Supporting Document(s) ID Date Data Source [id number] 02/17/2021 08:20:00 PM EDT [facility] 1 OrderSheet [facility] Emergency Department [address] [place] [address] Phone #: ext- [phone] 02/17/2021 20:18 Patient: ELGIN KOO Sex: F : 1980 Age: 41yWEIGHT:104.3 kg HEIGHT:65 inches BMI:38.3ALLERGIES: KOSTA Inhibitors, Acetaminophen, Cephalosporins, Motrin, Penicillins, SudafedCHIEF COMPLAINT: dyspneaDIAGNOSIS: BronchitisLAB ORDERSOrder Description Priority Entered Acknowledged Init ialedUrinalysis (Clean STAT 20:51 02/17/2021 20:53 LeoCatch) Mateusz Tavarez RN PA; Reason for ordering with alerts: Clinical consideration given -- 20:51 02/17/2021 Mateusz De La Garza PARapid Strep Screen STAT 20:51 02/17/2021 20:53 Leo Tavarez RN PA; Reason for ordering with alerts: Clinical consideration given -- 20:51 02/17/2021 Mateusz De La Garza PADIAGNOSTIC STUDY ORDERSOrder Description Sarah ority Entered Acknowledged InitialedChest 2 View STAT 20:51 02/17/2021 20:53 Leo(Oxygen?(No)) Mateusz Tavarez RN PA; Reason for ordering with alerts: Clinical consideration given -- 20:51 0 02/17/2021 Mateusz MESA Reason for Study: CoughMEDICATION/IV/DRIP/FLUID ORDERSOrder Description Priority Entered Acknowledged InitialedNS IV 1000 mL 20:51 02/17/2021 20:59 PeterBolus: : Bolus 1000 Mateusz Tavarez RNmL (X1) PA; Reason for ordering with alerts: Clinical consideration given -- 20:51 02/17/2021 Mateusz De La Garza PASOLU-Medrol 125 20:51 02/17/2021 20:59 Petermg IV X1 Dose: 125 Mateusz Tavarez RNmg (X1) PA; Reason for ordering with alerts: Clinical consideration given -- 20:51 02/17/2021 2 OrderSheet [facility] Department [address] [place] [address] Phone #: ext- [phone] 02/17/2021 20:18 Patient: ELGIN OKO Sex: F : 1980 Age: 41y Mateusz De La Garza PADuoNeb 3 mL X2 20:51 02/17/2021 21:04 PeterDoses (Filtered): 6 Mateusz Tavarez RNmL (3 mL X2 PA;Doses) Reason for ordering with alerts: Clinical consideration given -- 20:51 02/17/2021 Mateusz De La Garza PAPromethazine w 21:48 02/17/2021 Cancelled: Unavailable/Mat/Equip 21:54Codeine PO 10 mL Mateusz MESA PA;Azithromycin PO 21:49 02/17/2021 21:58 Claritza Amezquita500 mg X1 Dose: Mateusz De La Garza R.N.500 mg (NOW x1) PA;Morphine IVP 4 mg 21:54 02/17/2021 Cancelled: Physician Order 21:55 Mateusz(HIGH ALERT Mateusz De La Garza PAMEDICATION) PA;traMADol PO 100 21:55 02/17/2021 21:58 Claritza Amezquitamg Mateusz MESA;GENERAL ORDERSOrder Description Priority Entered Acknowledged Initialed[Electronically signed by Mateusz De La Garza (22:08 02/17/2021)][Electronically signed by Claritza Amezquita R.N. (22:11 02/17/2021)][Electronically locked by Claritza Amezquita R.N. (22:11 02/17/2021)] Name Value Range Interpretation Code Description Data Rhonda rce(s) Supporting Document(s) ID Date Data Source [id number] 02/17/2021 08:20:00 PM EDT [facility] 1 Medication Reconciliation Report [facility] Emergency Department [address] [place] [address] Phone #: ext- [phone] 02/17/2021 20:18 Patient: ELGIN KOO Sex: F : 1980 Age: 41yWeight: 104.3 kgHeight/Length: 65 in.BMI: 38.3ALLERGIES: KOSTA Inhibitors, Acetaminophen, Cephalosporins, Motrin, Penicillins, SudafedThe patient's Home Medications are listed below:CONTINUE TAKING THE FOLLOWING MEDICATIONS: Abilify Oral (5 mg) 1 tablet, daily, last dose: 1999, at bedtime Atorvastatin Calcium Oral (20 mg), daily Benzonatate Oral (100 mg), 3x a day Eliquis Oral (5 mg), 2x a dayThe source(s) of the original Home Medication information:Not obtained.The following Medications were given to the patient in the Emergency Department:NS [IV] IV Fluids bolus 0, then 1000 mL/hr, administered: 20:59 02/17/2021olu-Medrol [IVP] IVP 125 mg, administered: 20:59 1Duoneb [Neb Tx] Neb TX 2 unit dose, administered: 21:04 07/26/2021Azithromycin [PO] PO 500 mg, administered: 21:57 02/17/2021Tramadol [PO] PO 100 mg, administered: 21:58 02/17/2021The following Medications were prescribed to the patient:Medrol (Jevon) 4 mg tablets in a dose pack Take 1 tablet as directed for 6 days -- Dispense 1 pack.Refills: 0. Substitution permitted.[facility] [address] - [address] [place] [address]. FaxNumber: [phone]. 2 Medication Reconciliation Report [facility] Department [address] [place] [address] Phone #: ext- [phone] 02/17/2021 20:18 Patient: ELGIN KOO Sex: F : 1980 Age: 41yazithromycin 250 mg tablet -- Take one tablet daily for 4 days, Dispense 4 tablet. Refills: 0.Substitution permitted.[facility] [address] - [address] [place] [address]. FaxNumber: .albuterol sulfate HFA 90 mcg/actuation aerosol inhaler Inhale 2 puff four times a day -- Dispense 8.5gram. Refills: 0. Substitution permitted.[facility] [address] - [address] [place] [address]. FaxNumber: . -- MOSHE Lux Name Value Range Interpretation Code Description Data Rhonda rce(s) Supporting Document(s) ID Date Data Source [id number] 02/17/2021 08:20:00 PM EDT [facility] 1 Medication Administration Record [facility] Department [address] [place] [address] Phone #: ext- [phone] 02/17/2021 20:18 Patient: ELGIN KOO Sex: F : 1980 Age: 41yWeight: 104.3 kgHeight/Length: 65 inBMI: 38.3ALLERGIES: KOSTA Inhibitors, Acetaminophen, Cephalosporins, Motrin, Penicillins, Sudafed Date/Time Medication Administered Medication OrderedStart NS [IV] NS IV 1000 mL Bolus: : Bolus [id number] 02/17/2021 Dose: IV Fluids mL (X1)Leo Tavarez RN Rate: 1000 mL/hr over 1 hour(s)---- Dispensed: 1000 mL bagStop Site: #1 right AC22:06 02/17/2021Claritza Amezquita RShahidaGiven SOLU-MEDROL [IVP] SOLU-Medrol 125 mg IV X1 Dose:20:59 02/17/2021 (METHYLPREDNISOLONE SODIUM 125 mg (X1)Leo Tavarez RN SUCC) Dose: 125 mg IVP Site: #1 right ACGiven DUONEB [NEB TX] DuoNeb 3 mL X2 Doses (Filtered):21:04 02/17/2021 Dose: 2 unit dose Nebulizer Neb TX 6 mL (3 mL X2 Doses)Leo Tavarez RNGiven AZITHROMYCIN [PO] Azithromycin PO 500 mg X1 Dose:21:57 02/17/2021 Dose: 500 mg Tablets PO 500 mg (NOW x1)Claritza Amezquita R.N.Given TRAMADOL [PO] traMADol PO 100 mg21:58 02/17/2021 Dose: 100 mg Tablets Claritza Bingham R.N. Name Value Range Interpretation Code Description Data Rhonda rce(s) Supporting Document(s) ID Date Data Source [id number] 02/17/2021 08:20:00 PM EDT [facility] 1 General Instructions [facility] Emergency Department [address] [place] [address] Phone #: ext- [phone] 02/17/2021 20:18 [id number] Sex[facility] F : 1980 Age: 41yAcute bacterial bronchitis associated with asthma.INSTRUCTIONSAvoid tobacco smoke.Warnings: Further evaluation is necessary. It is very important to follow up with a healthcare provider.GENERAL WARNINGS: Return or contact your physician immediately if your condition worsens orchanges unexpectedly, if not improving as expected, or if other problems arise. SPECIFICALLY, return ifyou develop chest pain; or if there is worsening of the productive cough or difficulty breathing.Your Current Medications: Your current home medications have been reviewed.CONTINUE TAKING THE FOLLOWING MEDICATIONS:Abilify Oral : Tablet 5 mg, 1 tablet daily, Last: 1999, at bedtime.Atorvastatin Calcium Oral : Tablet 20 mg, daily.Benzonatate Oral : Capsule 100 mg, 3x a day.Eliquis Oral : Tablet 5 mg, 2x a day.Prescription Medications:Medrol (Jevon) 4 mg tablets in a dose pack Take 1 tablet as directed for 6 days -- Dispense 1 pack.Refills: 0. Substitution permitted.[facility] [address] - [address] [place] [address]. FaxNumber: .azithromycin 250 mg tablet -- Take one tablet daily for 4 days, Dispense 4 tablet. Refills: 0.Substitution permitted.[facility] [address] - [address] [facility] ; [place] [address]. FaxNumber: .albuterol sulfate HFA 90 mcg/actuation aerosol inhaler Inhale 2 puff four times a day -- Dispense 8.5gram. Refills: 0. Substitution permitted.[facility] [address] - [address] [facility] [place] [address]. FaxNumber: .Follow-up:Follow up with your doctor in two days. Call for the next available appointment. Reason for referral:evaluation and treatment. Summary of care provided to patient. 2 General Instructions [facility] Department [address] [place] [address] Phone #: ext- [phone] 02/17/2021 20:18 Patient: ELGIN KOO Sex: F : 1980 Age: 41yUnderstanding of the discharge instructions verbalized by patient. ADDITIONAL INFORMATIONBronchitis, Antibiotic Treatment (Adult)Bronchitis is an infection of the air passages (bronchial tubes) in your lungs. It often occurs when youhave a cold. This illness is contagious during the first few days and is spread through the air bycoughing and sneezing, or by direct contact (touching the sick person and then touching your owneyes, nose, or mouth).Symptoms of bronchitis include cough with mucus (phlegm) and low-grade fever. Bronchitis usuallylasts 7 to 14 days. Mild cases can be treated with simple home remedies. More severe infection istreated with an antibiotic. 3 General Instructions [facility] Emergency Department [address] [place] [address] Phone #: [phone]- [phone] 02/17/2021 20:18 Patient: ELGIN KOO Sex: F : 1980 Age: 41yHome careFollow these guidelines when caring for yourself at home: If your symptoms are severe, rest at home for the first 2 to 3 days. When you go back to your usual activities, don't let yourself get too tired. Don't smoke. Also stay away from secondhand smoke. You may use puiw-xal-ehayrua medicines to control fever or pain, unless another medicine was prescribed. If you have chronic liver or kidney disease or have ever had a stomach ulcer or gastrointestinal bleeding, talk with your healthcare provider before using these medicines. Also talk to your provider if you are taking medicine to prevent blood clots. Aspirin should never be given to anyone younger than 18 who is ill with a viral infection or fever. It may cause severe liver or brain damage. Your appetite may be low, so a light diet is fine. Stay well hydrated by drinking 6 to 8 glasses of fluids per day. This includes water, soft drinks, sports drinks, juices, tea, or soup. Extra fluids will help loosen mucus in your nose and lungs. Rgdy-vrh-pevwqgn cough, cold, and sore-throat medicines will not shorten the length of the illness, but they may be helpful to reduce your symptoms. Don't use decongestants if you have high blood pressure. Finish all antibiotic medicine. Do this even if you are feeling better after only a few days.Follow-up careFollow up with your healthcare provider, or as advised. If you had an X-ray or ECG(electrocardiogram), a specialist will review it. You will be told of any new test results that may affectyour care.If you are age 65 or older, if you smoke, or if you have a chronic lung disease or condition that affectsyour immune system, ask your healthcare provider about getting a pneumococcal vaccine and ayearly flu shot (influenza vaccine).When to seek medical adviceCall your healthcare provider right away if any of these occur: Fever of 100.4F (38C) or higher, or as directed by your healthcare provider Coughing up more sputum Weakness, drowsiness, headache, facial pain, ear pain, or a stiff neck 4 General Instructions [facility] Emergency Department [address] [place] [address] Phone #: [phone] ext- [phone] 02/17/2021 20:18 Patient: ELGIN KOO Sex: F : 1980 Age: 41yCall 911Call 911 if any of these occur. Coughing up blood Weakness, drowsiness, headache, or stiff neck that get worse Trouble breathing, wheezing, or pain with breathing [employer]. [address] [place] [address]. All rights reserved. This information is not intended as asubstitute for professional medical care. Always follow your healthcare professional's instructions. You have been given the following additional information: Bronchitis, Antibiotic Treatment (Adult)(Electronically signed by MOSHE Lux 02/17/2021 22:08) Name Value Range Interpretation Code Description Data Rhonda rce(s) Supporting Document(s) ID Date Data Source [id number] 02/17/2021 08:20:00 PM EDT [facility] 1 Clinical Report - Nurses [facility] Emergency Department [address] [place] [address] Phone #: ext- [phone] 02/17/2021 20:18 Patient: ELGIN OKO Sex: F : 1980 Age: 41yTRIAGEArrived by private vehicle. Historian: patient.Chief Complaint: CHEST PAIN.This started today. ( Patient states yesterday she woke up with a sore throat, drank fluids and it wentaway. States today she has thrown up twice and has chest pain since 10am. States she didn't try takinganything for the pain because she's allergic to sudafed and ibuprofen. States she was just at [facility] butdidn't want to wait.).Treatment SALON RECEPTIONIST:None. --20:22 02/17/21 Johnny Powern20:19 02/17/21. BP: 117/64. HR: 87. RR: 14. O2 saturation: 98%. Temp: 99.3 F. Pain level now 6/10.--20:22 02/17/21 Shanell Poweruity: LEVEL 3.Alert. No acute distress.SEPSIS SCREEN: SIRS SCREEN NEGATIVE. SEPSIS SCREEN NEGATIVE. No suspected or confirmedsigns of infection present. --20:23 02/17/21 Elo Power.Weight: 104.3 kg. Height/Length: 65 inches. BMI: 38.3. --20:19 02/17/21 Elo Pwoer.MedicationsAbilify Oral (Tablet 5 mg) 1 tablet, daily at bedtime, last dose 1999. Atorvastatin Calcium Oral (Tablet 20 mg), daily. Benzonatate Oral (Capsule 100 mg), 3x a day. --20:02/17/21 Elo Power Eliquis Oral (Tablet 5 mg), 2x a day. --20:22 02/17/21 Elo Power.AllergiesACE Inhibitors.Acetaminophen. (SWEELS UP--MUST BE PREMEDICATED WITH BENADRYL)Cephalosporins.Motrin.Penicillins.Sudafed. --20:02/17/21 Elo Power.PROBLEMS:Back Pain. 2 Clinical Report - Nurses [facility] Emergency Department [address] [place] [address] Phone #: ext- [phone] 02/17/2021 20:18 Patient: ELGIN KOO Sex: F : 1980 Age: 41ySeizure Disorder: (Stress induced).DVT - Deep Venous Thrombosis.Anxiety Reaction.Hypertension.Fibromyalgia.Other Disease.PTSD.Schizophrenia.Myofascial Strain. --20:22 02/17/21 Elo Power.ADDITIONAL SURGERIES:CERVICAL CANCER.C- Section.Dental Surgery.Aysha filter.Partial hysterectomy.Previous Abdominal Surgery. --20:02/17/21 Elo Power.HistoryPAST MEDICAL HX: The patient has had a hysterectomy. Last oral intake by patient was (Roast beef subjust prior to arrival).SOCIAL HX: Heavy tobacco smoker (cigarette)- 1 pack per day. No alcohol use or drug use. She wasoffered HIV testing but declined. Patient education was provided. She was offered hepatitis C testing butdeclined. Patient education was provided. She has not traveled outside the [place]Infectious disease exposure: No infectious disease exposure. The patient was not exposed to Coronavirus.Patient is not a known carrier of tuberculosis, hepatitis, HIV, MRSA or VRE. Patient is not a known carrierof CRE.SELF HARM ASSESSMENT: Self harm assessment was performed. The patient answered "no" to thequestion(s) "Have you recently felt down, depressed, or hopeless?" and "Do you have thoughts of harmingor killing yourself?".ABUSE ASSESSMENT: Abuse assessment. The patient had positive responses to the question(s) "Do youfeel safe in your home?" and "Are you afraid to go home?". Abuse denied. No suspicion of abuse. Noreport of abuse.NUTRITIONAL RISK ASSESSMENT: The nutritional risk assessment revealed no deficiencies.FUNCTIONAL ASSESSMENT: Functional assessment: no impairments noted.LEARNING NEEDS ASSESSMENT: The learning needs assessment revealed no barriers.FALL RISK ASSESSMENT: Fall risk assessment completed. No risk factors identified. 3 Clinical Report - Nurses [facility] Emergency Department [address] [place] [address] Phone #: ext- [phone] 02/17/2021 20:18 -- [id number] Sex[facility] F : 1980 Age: 41y SKIN INTEGRITY ASSESSMENT: Skin integrity risk assessment completed. No skin integrity risk identified. --20:22 02/17/21 Elo Power. Interventions Identification band on patient. --20:23 02/17/21 Elo Power.PHYSICAL ASSESSMENTAmbulatory to room.GENERAL / NEURO / PSYCH: Alert. Oriented X 4.HEENT: Mucous membranes are pink.RESPIRATORY: Mild respiratory distress. Expiratory wheezes in the right and left lung base anteriorly,mid-lung anteriorly and upper lung anteriorly.CVS: Normal sinus rhythm noted. Heart sounds within normal limits. Pulses within normal limits. ( rightlateral rib pain, pt voices it increases with cough). Capillary refill less than 2 seconds.GI / : Abdomen soft and nontender.EXTREMITIES: No lower extremity edema.SKIN: Skin is warm and dry. Normal skin turgor. Skin is non-tender. --20:27 02/17/21 Leo Tavarez RN.NURSING PROGRESS NOTESMonitoring of patient in place. Patient gowned. Reassurance given. Two patient identifiers checked.Call light placed in reach. Side rails up x 2. Bed placed in lowest position. Brakes of bed on. Patientready for evaluation. --20:02/17/21 Elo Power EKG was performed by a tech and shown to the ED physician. --20:23 02/17/21 Elo Power 20:31 02/17/2021 Site #1 started via IV in the right antecubital space with an 20g angiocath, with aseptic technique and good blood return; one attempt. Saline lock flushed with 10 mL saline. --20:31 02/17/21 Leo Tavarez RN ( pt does have a dry hacking cough along with redness to her posterior throat). --20:42 02/17/21 Leo Tavarez RN 20:56 02/17/21. Patient ID band checked for patient name and birthdate: patient confirmed. Throat swab obtained by PA for rapid strep; labeled in the presence of the patient. --21:06 02/17/21 Leo Tavarez RN 20:59 02/17/2021 Started bag #1 1000 mL IV Fluids NS; at 1000 mL/hr over 1 hour(s) via site #1 via IV pump. Allergies verified and confirmed 5 rights. IV patency established. IV site checked: no pain, redness, or swelling. IV flushed thoroughly pre- and post- medication administration. Information reviewed with patient including reason for taking this medication. Verbalizes understanding. --20:59 02/17/21 Leo Tavarez RN 20:59 02/17/2021 Solu-Medrol (methylPREDNISolone Sodium Succ) IVP 125 mg given over 2 minute(s) via site #1. Allergies verified and confirmed 5 rights. IV patency established. IV site checked: no pain, redness, or swelling. IV flushed thoroughly pre- and post-medication administration. IVP given by RN. 4 Clinical Report - Nurses [facility] Emergency Department [address] [place] [address] Phone #: ext- [phone] 02/17/2021 20:18 Patient: ELGIN KOO Sex: F : 1980 Age: 41y Information reviewed with patient including reason for taking this medication. Verbalizes understanding. --20:59 02/17/21 Leo Tavarez RN 21:04 02/17/2021 Duoneb Neb [place] Nebulizer 2 unit dose given. Given by the nurse. Allergies verified and confirmed 5 rights. Information reviewed with patient including reason for taking this medication. Verbalizes understanding. --21:04 02/17/21 Leo Tavarez RN 21:04 02/17/21. BP: 100/70. MAP: 80. HR: 82. RR: 18. O2 saturation: 100%. --21:05 02/17/21 Leo Tavarez RN ( Pt reports pain that worsens with cough, PA notified.). --21:49 02/17/21 Claritza Amezquita RAshleyNAshley 21:57 02/17/2021 Azithromycin PO Tablets 500 mg given. Allergies verified and confirmed 5 rights. Information reviewed with patient including reason for taking this medication, signs of allergic reaction and precautions. Verbalizes understanding. --21:58 02/17/21 Claritza Amezquita R.N. 21:58 02/17/2021 Tramadol PO Tablets 100 mg given. Allergies verified and confirmed 5 rights. Information reviewed with patient including reason for taking this medication, signs of allergic reaction, precautions and sedative warning. Verbalizes understanding. --21:58 02/17/21 Claritza Amezquita R.N. 22:06 02/17/2021 IV Fluids NS via IV site #1 Discontinued: bag #1 STOPPED upon discharge. Total amount infused: 800 mL. IV patency established. IV site checked: no pain, redness, or swelling. IV flushed thoroughly. --22:11 02/17/21 Claritza Amezquita R.N.DISPOSITION / DISCHARGE 22:06 02/17/2021 Site #1 removed upon discharge. Manual pressure and bandaid applied. --22:08 02/17/21 Claritza Amezquita R.N. [place] Coma Scale: 15- eyes open- spontaneous (4); best verbal response- oriented (5); best motor response- obeys commands (6). Condition at departure: improved and stable. No learning barriers present. Discharge instructions provided and reviewed with the patient and family. Reviewed medication(s) side effects, precautions, dosing and course information. Prescription(s) sent electronically to pharmacy. Reviewed need to stop smoking. Patient verbalized understanding. The patient was discharged by the physician tv production assistant. She was discharged home and accompanied by apprenticeship consultant. She left via private vehicle. Roofing Contractor driving. ( PT instructed not to drive due to receiving tramadol while in ER. Pt verbalizes understanding.). --22:10 02/17/21 Claritza Amezquita R.N. 22:08 02/17/21. BP: 110/59. MAP: 76. HR: 87. RR: 18. O2 saturation: 98%. Temp: 97.9 F. Pain level now: 5/10. Additional comments: pain worsens with cough. --22:10 02/17/21 Claritza Amezquita R.N.Locked/Released at 02/17/2021 22:11 by Claritza Amezquita R.N. 5 Clinical Report - Nurses [facility] Emergency Department [address] [place] [address] Phone #: ext- [phone] 02/17/2021 20:18 Patient: ELGIN KOO Sex: F : 1980 Age: 41y Name Value Range Interpretation Code Description Data Rhonda rce(s) Supporting Document(s) ID Date Data Source [id number] 02/17/2021 08:20:00 PM EDT [facility] 1 Clinical Report - Physicians/Mid Levels [facility] Emergency Department [address] [place] [address] Phone #: ext- [phone] 02/17/2021 20:18 Patient: ELGIN KOO Sex: F : 1980 Age: 41y Time Seen: 20:28 02/17/2021. Arrived- By private vehicle. Historian- patient.HISTORY OF PRESENT ILLNESS Chief Complaint: DYSPNEA and Right sided rib pain. (Patient states yesterday she woke up with a sore throat, drank fluids and it went away. States today she has thrown up twice and has chest pain since 10am. States she didn't try taking anything for the pain because she's allergic to sudafed and ibuprofen. States she was just at [facility] but didn't want to wait). Is still present. It was abrupt in onset and has been constant. The dyspnea is described as mild and is worsened by exertion and cough. The patient has had a cough and chest discomfort. No sputum production, fever, sweating episodes, wheezing or chills. No dyspnea on exertion, chest pain, calf pain, foot swelling or anxiety. No dizziness, tingling, numbness or palpitations. Similar symptoms previously. None. Recent medical care: The patient was seen recently at this facility in the emergency department.REVIEW OF SYSTEMSThe patient has had a sore throat but not had weight loss. No muscle aches, eye irritation, nasaldischarge, sinus drainage or nausea. No abdominal pain, diarrhea, black stools, bloody stools orheadache. No fainting episodes, blurred vision, difficulty with urination, excessive urination or skin rash.No enlarged lymph nodes or joint pain. The patient has had vomiting (Pt ate Roast Beef Sub on the wayhere from [facility]). The vomiting has occurred twice.PAST HISTORYProblems:Back Pain.Seizure Disorder. (Stress induced)DVT - Deep Venous Thrombosis.Hypertension.Fibromyalgia.Other Disease.Myofascial Strain. Additional Surgeries: CERVICAL CANCER. . Dental Surgery. Maurice filter. Partial hysterectomy. Previous Abdominal Surgery. 2 Clinical Report - Physicians/Mid [facility] Emergency Department [address] [place] [address] Phone #: ext- [phone] 02/17/2021 20:18 Patient: ELGIN KOO Sex: F : 1980 Age: 41y Medications: Eliquis Oral (Tablet 5 mg), 2x a day. Abilify Oral (Tablet 5 mg) 1 tablet, daily at bedtime, last dose 1999. Atorvastatin Calcium Oral (Tablet 20 mg), daily. Benzonatate Oral (Capsule 100 mg), 3x a day. Allergies: KOSTA Inhibitors. Acetaminophen. (SWEELS UP--MUST BE PREMEDICATED WITH BENADRYL) Cephalosporins. Motrin. Penicillins. Sudafed.SOCIAL HISTORYHeavy tobacco smoker (cigarette)- 1 pack per day. No alcohol use or drug use.PHYSICAL EXAMVital Signs: 02/17/2021 20:19 BP: 117/64. MAP: 81. HR: 87. RR: 14. O2 saturation: 98%. Temp: 99.3 F.Have been reviewed as normal. Oxygen saturation normal.Appearance: Alert. No acute distress.Eyes: Pupils equal, round and reactive to light. Eyes normal inspection.ENT: Ears normal. Nose normal. Pharynx normal. Uvula midline.Neck: Normal inspection.CVS: Normal heart rate and rhythm. Heart sounds normal.Respiratory: No respiratory distress. Mild right mid- and lower costochondral tenderness and right mid-and lower chest wall tenderness. Expiratory mild bilateral wheezes in the bases.Abdomen: Soft and nontender. No organomegaly.Back: Normal inspection.Skin: Skin warm and dry. Normal skin color. No rash. Normal skin turgor.Extremities: Extremities exhibit normal ROM. No lower extremity edema.Neuro: Oriented X 3.LABS, X-RAYS, AND EKGChest X-ray: No acute disease. Views: PA and lateral. The X-rays were independently viewed by me.Interpretation time: 21:46 02/17/2021.Laboratory Tests: Laboratory tests have been ordered, with results reviewed and considered in themedical decision making process. Urinalysis: (JULI: 02/17/2021 20:50) ( MsgRcvd 02/17/2021 21:13) Final results Test Result Flag Units (Reference) URINALYSIS URINALYSIS SOURCE R COLOR yellow (NORMAL: Yello CLARITY clear (NORMAL: Clear 3 Clinical Report - Physicians/Mid Levels [facility] Emergency Department [address] [place] [address] Phone #: ext- [phone] 02/17/2021 20:18 Patient: ELGIN KOO Sex: F : 1980 Age: 41y SPEC GRAVITY 1.015 (1.001 - 1.030 pH 6 (5 - 9) GLUCOSE NORM (NORMAL: Negat BILIRUBIN NEG (NORMAL: Negat KETONE NEG (NORMAL: Negat PROTEIN NEG (NORMAL: Negat NITRITE NEG (NORMAL: Negat BLOOD 150 A (NORMAL: Negat LEUK EST NEG (NORMAL: Negat UROBILINOGEN NOR (less than 1.0 MICROSCOPIC See Below WBC 1 - 3 (NORMAL: NONE RBC 0 - 1 (NORMAL: NONE EPITHELIAL MANY A (NORMAL: NONE AMORPH SED RARE (NORMAL: NONE Rapid Strep Screen: (JULI: 02/17/2021 20:50) ( MsgRcvd 02/17/2021 21:07) Final results Test Result Flag Units (Reference) RAPID STREP NEGATIVE (NORMAL: NEGAT RAPID STREP REENTER NEGATIVE (NORMAL: NEGAT { PROCEDURAL CONTROL VALID ){ KIT LOT # [id number] ){ KIT EXP DATE 06/07/21 )The Strep A 2 assay utilizes isothermal nucleic acid amplification technology fothe qualitative detection of Group A Strep bacterial nucleic acid in throat swabspecimens.All negative test results no longer need to be confirmed with a culture. Follow-up testing requiring a culture is necessary if clinical symptoms persist, or inthe event of an acute rheumatic fever outbreak. A culture will need to beordered by the Qualified Medical Provider.Negative results do not preclude infection with Group A Strep and should not beused as the sole basis for treatment. Chest 2 View: (JULI: 02/17/2021 20:51) ( MsgRcvd 21:29) In Progress CHEST 2 VIEWS Reason(s): Cough TRANSPORTATION: IV? O2? Oxygen?(No) Room: ED.PROGRESS AND PROCEDURESCourse of Care: Feb 17 2021. Evaluation after observation. (Discussed CXR, exam findings and ptis agreeable with dx and tx plan.). Daughter and friend counseled in person regarding the patient's stable condition, test results, diagnosis and need for follow-up. Daughter and friend agrees with plan of care. :Feb 17 2021. Disposition: Discharged home in good and improved condition (Feb 17 2021).CLINICAL IMPRESSION Acute bacterial bronchitis associated with asthma. 4 Clinical Report - Physicians/Mid Levels [facility] Emergency Department [address] [place] [address] Phone #: ext- [phone] 02/17/2021 20:18 Patient: ELGIN KOO Sex: F : 1980 Age: 41yINSTRUCTIONS Avoid tobacco smoke. Warnings: Further evaluation is necessary. It is very important to follow up with a healthcare provider. GENERAL WARNINGS: Return or contact your physician immediately if your condition worsens or changes unexpectedly, if not improving as expected, or if other problems arise. SPECIFICALLY, return if you develop chest pain; or if there is worsening of the productive cough or difficulty breathing. Your Current Medications: Your current home medications have been reviewed. CONTINUE TAKING THE FOLLOWING MEDICATIONS: Abilify Oral : Tablet 5 mg, 1 tablet daily, Last: 1999, at bedtime. Atorvastatin Calcium Oral : Tablet 20 mg, daily. Benzonatate Oral : Capsule 100 mg, 3x a day. Eliquis Oral : Tablet 5 mg, 2x a day. Prescription Medications: Medrol (Jevon) 4 mg tablets in a dose pack Take 1 tablet as directed for 6 days -- Dispense 1 pack. Refills: 0. Substitution permitted. [facility] [address] [place] [address]. . azithromycin 250 mg tablet -- Take one tablet daily for 4 days, Dispense 4 tablet. Refills: 0. Substitution permitted. [facility] [address] [place] [address]. . albuterol sulfate HFA 90 mcg/actuation aerosol inhaler Inhale 2 puff four times a day -- Dispense 8.5 gram. Refills: 0. Substitution permitted. [facility] # [address] [place] [address] ; [place] [address]. . Follow-up: Follow up with your doctor in two days. Call for the next available appointment. Reason for referral: evaluation and treatment. Summary of care provided to patient. Understanding of the discharge instructions verbalized by patient.(Electronically signed by MOSHE Lux 02/17/2021 22:08) 5Clinical Report - Physicians/Mid Levels [facility] Emergency Department [address] [place] [address] Phone #: ext- [phone] 02/17/2021 20:18 Patient: ELGIN KOO Sex: F : 1980 Age: 41y Name Value Range Interpretation Code Description Data Rhonda rce(s) Supporting Document(s) ID Date Data Source [id number] 02/17/2021 09:13:00 PM EDT [facility] Name Value Range Interpretation Code Description Data Rhonda rce(s) Supporting Document(s) [facility] SOURCE R [facility] COLOR yellow NORMAL: Yellow [facility] CLARITY clear NORMAL: Clear [facility] Specific gravity of Urine by Test strip 1.015 1.001 - 1.030 [facility] pH 6 5 - 9 [facility] al Glucose [Mass/volume] in Urine by Test strip NORM NORMAL: Negat [facility] Bilirubin.total [Presence] in Urine by Test strip NEG NORMAL: Negative [facility] Ketones [Presence] in Urine by Test strip NEG NORMAL: Negative [facility] Protein [Mass/volume] in Urine by Test strip NEG NORMAL: Negat [facility] Nitrite [Presence] in Urine by Test strip NEG NORMAL: Negative [facility] BLOOD 150 NORMAL: Negative A [facility] LEUK EST NEG NORMAL: Negative [facility] Urobilinogen [Mass/volume] in Urine by Test strip NOR less emily n 1.0 mg/dL [facility] MICROSCOPIC See Below [facility] ital WBC 1 - 3 NORMAL: NONE SEEN [facility] Erythrocytes [#/volume] in Urine by Test strip 0 - 1 NORMAL: NON E SEEN [facility] EPITHELIAL MANY NORMAL: NONE SEEN A [facility] Amorphous sediment [Presence] in Urine sediment by Light madi roscopy RARE NORMAL: NONE SEEN [facility] ID Date Data Source [id number] 02/17/2021 09:05:00 PM EDT [facility] Name Value Range Interpretation Code Description Data Rhonda rce(s) Supporting Document(s) RAPID STREP NEGATIVE NORMAL: NEGATIVE [facility] RAPID STREP REENTER NEGATIVE NORMAL: NEGATIVE [facility] { PROCEDURAL CONTROL VALID ){ KIT LOT # [id number] ){ KIT EXP DATE 06/07/21 )The Strep A 2 assay utilizes isothermal nucleic acid amplification technology fothe qualitative detection of Group A Strep bacterial nucleic acid in throat swabspecimens.All negative test results no longer need to be confirmed with a culture. Follow-up testing requiring a culture is necessary if clinical symptoms persist, or inthe event of an acute rheumatic fever outbreak. A culture will need to beordered by the Qualified Medical Provider.Negative results do not preclude infection with Group A Strep and should not beused as the sole basis for treatment. ID Date Data Source [id number] 02/10/2021 11:55:00 PM EDT [facility] 1 OrderSheet [facility] Emergency Department [address] [place] [address] Phone #: ext- [phone] 02/10/2021 23:55 Patient: ELGIN KOO Sex: F : 1980 Age: 41yWEIGHT:106.5 kg (S)ALLERGIES: KOSTA Inhibitors, Acetaminophen, Cephalosporins, Motrin, Penicillins, SudafedCHIEF COMPLAINT: abdominal painDIAGNOSIS: Abdominal pain, ColitisLAB ORDERSOrder Description Priority Entered Acknowledged InitialedCBC w Diff STAT 23:57 02/10/2021 00:15 02/11/2021 Linda Black MD; Raul Marquez R.N.CMP STAT 23:57 02/10/2021 00:15 02/11/2021 Linda Black MD; Raul Marquez R.N.Lactic Acid STAT 23:57 02/10/2021 00:15 02/11/2021 Linda Black MD; Raul Marquez R.N.Lipase STAT 23:57 02/10/2021 00:15 02/11/2021 Linda Black MD; Raul Marquez R.N.Magnesium STAT 23:57 02/10/2021 00:15 02/11/2021 Linda Black MD; Raul Marquez R.N.Urinalysis (Clean STAT 23:57 02/10/2021 00:30 02/11/2021atch) Linda Black MD; Raul Marquez R.N.DIAGNOSTIC STUDY ORDERSOrder Description Priority Entered Acknowledged InitialedCT Abd PEL W/ IV STAT 23:57 02/10/2021 00:00 02/11/2021ontrast Only Linda Balck MD; Raul Marquez(Oxygen?(No)) R.NAshley(IV?(Yes)) NOTES: generalized Reason for Study: Abdominal PainMEDICATION/IV/DRIP/FLUID ORDERSOrder Description Priority Entered Acknowledged InitialedIV NS 1000 mL 23:57 02/10/2021 00:31 02/11/2021 2 OrderSheet [facility] Department [address] [place] [address] Phone #: ext- [phone] 02/10/2021 23:55 Patient: ELGIN KOO Sex: F : 1980 Age: 41yBolus : Bolus 1000 Linda Black MD; Catia Marquez (X1) R.NAshleyDuoNeb Neb Tx 3 00:00 02/11/2021 Cancelled: Physician Order 00:00mL (NOW x1) Linda Black MD; Linda Black MDCipro PO 500 mg 02:27 02/11/2021 02:35 Dominic Marquez Norma MD; Raul PaytonFlagyl PO 500 mg 02:02/11/2021 02:35 Dominic Marquez Norma MD; Raul PaytonGENERAL ORDERSOrder Description Priority Entered Acknowledged Initialed[Electronically signed by Linda Black MD (02:45 02/11/2021)][Electronically signed by Raul Marquez R.N. (03:02/11/2021)][Electronically locked by Raul Marquez R.N. (03:02/11/2021)] Name Value Range Interpretation Code Description Data Rhonda rce(s) Supporting Document(s) ID Date Data Source [id number] 02/10/2021 11:55:00 PM EDT [facility] 1 Medication Reconciliation Report [facility] Emergency Department [address] [place] [address] Phone #: ext- [phone] 02/10/2021 23:55 Patient: ELGIN KOO Sex: F : 1980 Age: 41yWeight: 106.5 kgHeight/Length: 65 in.BMI: 39.1ALLERGIES: KOSTA Inhibitors, Acetaminophen, Cephalosporins, Motrin, Penicillins, SudafedThe patient's Home Medications are listed below:CONTINUE TAKING THE FOLLOWING MEDICATIONS: Abilify Oral (5 mg) 1 tablet, daily, last dose: 1999, at bedtime Atorvastatin Calcium Oral (20 mg), daily Benzonatate Oral (100 mg), 3x a day Eliquis Oral (5 mg), 2x a dayThe source(s) of the original Home Medication information:patientThe following Medications were given to the patient in the Emergency Department:NS [IV] IV Fluids bolus 0, then 1500 mL/hr, administered: 00:31 02/11/2021ipro [PO] PO 500 mg, administered: 02:35 02/11/2021Flagyl [PO] PO 500 mg, administered: 02:35 02/11/2021The following Medications were prescribed to the patient:Flagyl 500 mg tablet Take 1 tablet twice a day -- Dispense 20 tablet. Refills: 0. Substitution permitted.[facility] [employer] #[id number] - [id number] ; [place] [address]. FaxNumber: .Cipro 500 mg tablet Take 1 tablet twice a day as directed for 10 days -- Dispense 20 tablet. Refills: 0.Substitution permitted.[facility] [employer] #[id number] - [id number] ; [place] [address]. FaxNumber: . -- Linda Black MD 2 Medication Reconciliation Report [facility] Emergency Department [address] [place] [address] Phone #: ext- [phone] 02/10/2021 23:55 Patient: ELGIN KOO Sex: Jamaal : 1980 Age: 41y Name Value Range Interpretation Code Description Data Rhonda rce(s) Supporting Document(s) ID Date Data Source [id number] 02/10/2021 11:55:00 PM EDT [facility] 1 Medication Administration Record [facility] Department [address] [place] [address] Phone #: ext- [phone] 02/10/2021 23:55 Patient: ELGIN KOO Sex: F : 1980 Age: 41yWeight: 106.5 kgHeight/Length: 65 inBMI: 39.1ALLERGIES: KOSTA Inhibitors, Acetaminophen, Cephalosporins, Motrin, Penicillins, Sudafed Date/Time Medication Administered Medication OrderedStart NS [IV] IV NS 1000 mL Bolus : Bolus 061811:31 02/11/2021 Dose: IV Fluids mL (X1)Raul Marquez R.NAshley Rate: 1500 mL/hr over 40 minute(s)---- Dispensed: 1000 mL bagStop Site: #1 right AC01:28 02/11/2021Raul hernandez R.N.Given CIPRO [PO] (CIPROFLOXACIN) Cipro PO 500 mg02:35 02/11/2021 Dose: 500 mg Tablets POSorbRaul angel R.N.Given FLAGYL [PO] (METRONIDAZOLE) Flagyl PO 500 mg02:35 02/11/2021 Dose: 500 mg Tablets POSRaul hernandez R.N. Name Value Range Interpretation Code Description Data Rhonda rce(s) Supporting Document(s) ID Date Data Source [id number] 02/10/2021 11:55:00 PM EDT [facility] 1 General Instructions [facility] Emergency Department [address] [place] [address] Phone #: ext- [phone] 02/10/2021 23:55 Patient: ELGIN KOO Sex: F : 1980 Age: 41yAcute generalized abdominal pain.INSTRUCTIONSDrink plenty of fluids.(please follow up with your primary care physician. return if worse or any new symptoms. It is importantto take your antibiotics that have been prescribed to you.).Warnings: Further evaluation is necessary.GENERAL WARNINGS: Return or contact your physician immediately if your condition worsens orchanges unexpectedly, if not improving as expected, or if other problems arise.Your Current Medications: Your current home medications have been reviewed.CONTINUE TAKING THE FOLLOWING MEDICATIONS:Abilify Oral : Tablet 5 mg, 1 tablet daily, Last: 1999, at bedtime.Atorvastatin Calcium Oral : Tablet 20 mg, daily.Benzonatate Oral : Capsule 100 mg, 3x a day.Eliquis Oral : Tablet 5 mg, 2x a day.Prescription Medications:Flagyl 500 mg tablet Take 1 tablet twice a day -- Dispense 20 tablet. Refills: 0. Substitution permitted.[employer] #[id number] - [id number] ; [place] [address]. FaxNumber: .Cipro 500 mg tablet Take 1 tablet twice a day as directed for 10 days -- Dispense 20 tablet. Refills: 0.Substitution permitted.[employer] #33 - [id number] ; [place] [address]. FaxNumber: .Follow-up:Jamaal knapp up with your doctor in two days even if well. Call for an appointment. Reason for referral: evaluation.Summary of care provided to patient via paper.Understanding of the discharge instructions verbalized.Follow-up with: [facility], , , [address] [place] [address], [facility] Follow up in two days even if well. Call for an appointment. Reason for referral: evaluation. Summary of 2 General Instructions [facility] Department [address] [place] [address] Phone #: ext- [phone] 02/10/2021 23:55 Patient: ELGIN KOO Sex: F : 1980 Age: 41ycare provided to patient via paper. ADDITIONAL INFORMATIONUnknown Causes of Abdominal Pain (Female)The exact cause of your belly (abdominal) pain is not clear. This does not mean that this is somethingto worry about. Everyone likes to know the exact cause of the problem. But sometimes with bellypain, there is no clear-cut cause, and this could be a good thing. The good news is that yoursymptoms can be treated, and you will feel better.Your condition does not seem serious now. But sometimes the signs of a serious problem may takemore time to appear. For this reason, it is important for you to watch for any new symptoms,problems, or worsening of your condition.Over the next few days, the abdominal pain may come and go. Or it may be constant. Other commonsymptoms can include nausea and vomiting. Sometimes it can be difficult to tell if you feel nauseous.You may just feel bad and not connect that feeling to nausea. Constipation, diarrhea, and a fever maygo along with the pain.The pain may continue even if treated correctly over the following days. Depending on how things go, 3 General Instructions [facility] Department [address] [place] [address] Phone #: ext- [phone] 02/10/2021 23:55 Patient: ELGIN KOO Sex: F : 1980 Age: 41ysometimes the cause can become clear and may need more or different treatment. Additionalevaluations, medicines, or tests may also be needed.Home careYour healthcare provider may prescribe medicine for pain, symptoms, or an infection. Follow thehealthcare provider's instructions for taking these medicines.General care Rest as much as you can until your next exam. No strenuous activities. Try to find positions that ease discomfort. A small pillow placed on the abdomen may help relieve pain. Something warm on your abdomen (such as a heating pad) may help, but be careful not to burn yourself.Diet Don't force yourself to eat, especially if having cramps, vomiting, or diarrhea. Water is important so you don't get dehydrated. Soup may also be good. Sports drinks may also help, especially if they are not too acidic. Don't drink sugary drinks as this can make things worse. Take liquids in small amounts. Don't guzzle them. Caffeine sometimes makes the pain and cramping worse. Don't take dairy products if you have vomiting or diarrhea. Don't eat large amounts at a time. Wait a few minutes between bites. Eat a diet low in fiber (called a low-residue diet). Foods allowed include refined breads, white rice, fruit and vegetable juices without pulp, tender meats. These foods will pass more easily through the intestine. Don't have whole-grain foods, whole fruits and vegetables, meats, seeds and nuts, fried or fatty foods, dairy, alcohol and spicy foods until your symptoms go away.Follow-up careFollow up with your healthcare provider, or as advised, if your pain does not begin to improve in thenext 24 hours.Call [phone] if any of these occur: 4 General Instructions [facility] Department [address] [place] [address] Phone #: ext- [phone] 02/10/2021 23:55 Patient: ELGIN KOO Sex: F : 1980 Age: 41y Trouble breathing Confusion Fainting or loss of consciousness Rapid heart rate SeizureWhen to seek medical adviceCall your healthcare provider right away if any of these occur: Pain gets worse or moves to the right lower abdomen New or worsening vomiting or diarrhea Swelling of the abdomen Unable to pass stool for more than 3 days Fever of 100.4F (38C) or higher, or as directed by your healthcare provider. Blood in vomit or bowel movements (dark red or black color) Yellow color of eyes and skin (jaundice) Weakness, dizziness Chest, arm, back, neck, or jaw pain Unexpected vaginal bleeding or missed period Can't keep down liquids or water and you are getting dehydrated [id number] [employer]. [address] [place] [id number]. All rights reserved. This information is not intended as asubstitute for professional medical care. Always follow your healthcare professional's instructions.Irritable Bowel Syndrome 5 General Instructions [facility] [place] [address] Phone #: ext- [phone] 02/10/2021 23:55 Patient: ELGIN KOO Sex: F : 1980 Age: 41yIrritable bowel syndrome (IBS) is a disorder of the intestines. It is not a disease, but a group ofsymptoms caused by changes in the way the intestines work including how they move, secrete,absorb, and transit pain sensations. It is fairly common, but the cause is not well understood. Thereare other conditions that cause IBS symptoms, so make sure to speak with your provider to makesure that further evaluation isn't needed.Symptoms of IBS include: Belly pain, discomfort, and cramping Diarrhea Constipation or dry, hard stools Mucous stool Bloating Feeling of incomplete bowel movementsIt usually results in one of 3 patterns of symptoms: Chronic belly pain and constipation Recurring episodes of diarrhea, with belly pain or discomfort Alternating diarrhea and constipationHome careThe goal of treatment is to control and relieve your symptoms, so you can lead a full and active life.There is no cure for IBS. But it can be managed.DietYour diet did not cause your IBS, but it can affect it. Diet and food choices may cause IBS symptomsin some people, but not everyone. No one diet works for everyone. Finding the best foods for youmay take trial and error. Keep a food log to help find what foods made your symptoms worse. Beloware some tips that may help you. 6 General Instructions [facility] Emergency Dep artment [address] [place] [address] Phone #: ext- [phone] 02/10/2021 23:55 [id number] Sex: F : 1980 Age: 41y Eat more slowly. Eat smaller amounts at a time, but more often. Remember, you can always eat more, but cannot eat less once you've eaten too much. In general, fiber is very helpful for both constipation and diarrhea. However, insoluble fiber can worsen bloating, cramping, and gas. Insoluble fiber can be found in wheat bran, certain vegetables, and whole-grains. Soluble fiber is in such foods as oat bran, barley, nuts, seeds, vences, lentils, peas, and some fruits and vegetables. Increase fiber slowly and choose a product that includes soluble fiber. It helps to keep a food diary and write down the symptoms you have with certain foods. Try lactose-free dairy products. many people are intolerant to lactose. Try cutting out foods that are high in fat and fatty meats. You can control bloating or passing excess gas. Be careful with "gassy" vegetables and fruits like beans, cabbage, broccoli, and cauliflower. Other foods called FODMAPs are a type of carbohydrate that can cause these symptoms and diarrhea. They are poorly digestible carbohydrates. Some FODMAP examples include honey, apples, pears, nectarines, reynolds beans, and cabbage. Talk with your provider about how to choose low FODMAP foods if you are sensitive to them. Be careful with carbonated beverages and fruit juices. They can make your bloating and diarrhea worse. Caffeine, alcohol, and stimulants can make symptoms worse. These include coffee, tea, sodas, energy drinks, and chocolate. IBS diet guidelines can be confusing. Ask your provider for a referral to a registered dietitian. This professional can help you make sense of IBS diet suggestions.Lifestyle Look for factors that seem to worsen your symptoms. These include stress and emotions. Although stress does not cause IBS, it may trigger flare-ups. Counseling can help you learn to handle stress. So can self-help measures like exercise, yoga, and meditation. Depression can occur along with IBS. Your healthcare provider may prescribe antidepressant medicine. This may help with diarrhea, constipation, and cramping, as well as with symptoms of depression. Smoking doesn't cause IBS, but can make the symptoms worse.MedicinesYour healthcare provider may prescribe medicines. Take them as directed. For acute flare-ups of 7 General Instructions [facility] Department [address] [place] [address] Phone #: [phone] 02/10/2021 23:55 Patient: ELGIN KOO Sex: F : 1980 Age: 41yyour illness, your provider may give you prescription medicines. Check with your healthcare provider before taking any medicines for diarrhea. Don't take anti-inflammatory medicines like ibuprofen or naproxen. Long-term medicines can be helpful for chronic symptoms If you have lost enough weight to make you need nutritional supplements, talk to your provider. This may point to another more serious condition.Follow-up careFollow up with your healthcare provider, or as advised.When to seek medical adviceCall your healthcare provider right away if any of these occur: Belly pain gets worse or does not improve after a bowel movement Constant belly pain moves to the right-lower belly You can't keep liquids down because of vom iting You have severe, persistent diarrhea You have blood (red or black color) or mucus in your stool You have lost significant weight You feel very weak or dizzy, faint, or have extreme thirst You have a fever of 100.4F (38.0C) or higher, or as directed by your healthcare provider [id number] [employer]. [address] [place] [address], [place] [address]. All rights reserved. This information is not intended as asubstitute for professional medical care. Always follow your healthcare professional's instructions. You have been given the following additional information: Abdominal Pain, Unknown Cause, (Female) Irritable Bowel Syndrome 8 General Instructions [facility] Department [address] [place] [address] Phone #: ext- [phone] 02/10/2021 23:55 Patient: ELGIN KOO Sex: F : 1980 Age: 41y(Electronically signed by Linda Black MD 02/11/2021 02:45) Name Value Range Interpretation Code Description Data Rhonda rce(s) Supporting Document(s) ID Date Data Source [id number] 02/10/2021 11:55:00 PM EDT [facility] 1 Clinical Report - Nurses [facility] [address] [place] [address] Phone #: ext [phone] 02/10/2021 23:55 Patient: ELGIN KOO Sex: F : 1980 Age: 41yTRIAGEArrived by private vehicle. Historian: patient. Unaccompanied. ( presents with colitis flare up perpatient).Triage time: 00:02 02/11/2021. Acuity: LEVEL 3.Chief Complaint: ABDOMINAL PAIN, NAUSEA and DIARRHEA.Alert. 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 No suspected or confirmed signs of infection present.--00:06 02/11/21 Raul Marquez R.N.00:02 02/11/21. BP: 119/74. MAP: 89. HR: 74. RR: 16. O2 saturation: 99%. Temp: 98 F. Pain level now:12/02. --00:06 02/11/21 Raul Marquez R.N.Weight: 106.5 kg stated. Height/Length: 65 inches Per Patient. BMI: 39.1. --00:02 02/11/21 Raul Marquez R.N.MedicationsAbilify Oral (Tablet 5 mg) 1 tablet, daily at bedtime, last dose 1999. Atorvastatin Calcium Oral (Tablet 20 mg), daily. Benzonatate Oral (Capsule 100 mg), 3x a day. Eliquis Oral (Tablet 5 mg), 2x a day. --00:04 02/11/21 Raul Marquez R.N.AllergiesACE Inhibitors.Acetaminophen. (SWEELS UP--MUST BE PREMEDICATED WITH BENADRYL)Cephalosporins.Motrin.Penicillins.Sudafed. --00:04 02/11/21 Raul Marquez R.N.PROBLEMS:Fibromyalgia.Back Pain.DVT - Deep Venous Thrombosis. 2 Clinical Report - Nurses [facility] Department [address] [place] [address] Phone #: ext- [phone] 02/10/2021 23:55 [id number] Sex[facility] F : 1980 Age: 41yHypertension.Seizure Disorder: (Stress induced).Myofascial Strain. --00:04 02/11/21 Raul Marquez R.N.Abdominal Pain: RuleOut. --02:35 02/11/21 Linda Black MDThe following entry was modified by Raul Marquez R.N., 00:04 02/11/21Anxiety Reaction. --00:04 02/11/21 Raul Marquez R.N.The following entry was modified by Linda Black MD, 02:35 02/11/21Abdominal Pain. --00:04 02/11/21 Raul Marquez R.N.The following entry was modified by Raul Marquez R.N., 00:04 02/11/21Schizophrenia. --00:02/11/21 Raul Marquez R.N.The following entry was modified by Raul Marquez R.N., 00:04 02/11/21PTSD. --00:02/11/21 Raul Marquez R.N..Medication/allergy information source: the patient. --00:02/11/21 Raul Marquez R.N.ADDITIONAL SURGERIES:CERVICAL CANCER.C- Section.Dental Surgery.Aysha filter.Partial hysterectomy.Previous Abdominal Surgery. --00:02/11/21 Raul Marquez R.N.HistorySOCIAL HX: Heavy tobacco smoker- less than 1 pack per day. No alcohol use or drug use. No recenttravel. No known contact with a sick individual. She was offered HIV testing but declined and hepatitis Ctesting but declined. She has not traveled outside the [place]Infectious disease exposure: No infectious disease exposure. The patient was not exposed to Coronavirus.SELF HARM ASSESSMENT: Self harm assessment was performed. The patient answered "no" to thequestion(s) "Have you recently felt down, depressed, or hopeless?", "Do you have thoughts of harming orkilling yourself?", "Do you have a plan for harming or killing yourself?" and "Have you recently had thoughtsabout harming or killing others?".ABUSE ASSESSMENT: No report of abuse.FALL RISK ASSESSMENT: Fall risk assessment completed. No risk factors identified. --00:06 02/11/21Raul Marquez R.N.AssessmentThe patient states feels the same. --00:02/11/21 Raul Marquez R.N.Interventions 3 Clinical Report - Nurses [facility] [address] [place] [address] Phone #: ext- [phone] 02/10/2021 23:55 Patient: ELGIN KOO Sex: F : 1980 Age: 41y Identification band on patient. To treatment room. --00:06 02/11/21 Raul Marquez R.N.PHYSICAL KVZMXUSYKR04:02/11/21. Ambulatory to room.GENERAL / NEURO / PSYCH: Alert. Oriented X 4. Appears in no acute distress. HEENT: Mucous membranes are pink.RESPIRATORY: Respirations not labored. Breath sounds within normal limits.CVS: Capillary refill less than 2 seconds.GI / : Abdomen soft and nontender. Bowel sounds within normal limits.SKIN: Skin is warm and dry. --00:02/11/21 Raul Marquez R.N.NURSING PROGRESS NOTES00:02/11/21. Patient gowned. Reassurance given. Two patient identifiers checked. Call lightplaced in reach. Side rails up x 2. Bed placed in lowest position. Brakes of bed on. Patient ready forevaluation- ED physician notified. --00:02/11/21 Raul Marquez R.N. 00:15 02/11/2021 Site #1 started via IV in the right antecubital space with an 20g angiocath, with good blood return; one attempt. Blood drawn: rainbow set. Labeled in the presence of the patient and sent to the lab. Saline lock flushed with 10 mL saline. --00:15 02/11/21 Raul Marquez R.N. 00:31 02/11/2021 Started bag #1 1000 mL IV Fluids NS; at 1500 mL/hr over 40 minute(s) via site #1 via IV pump. Allergies verified and confirmed 5 rights. IV patency established. IV site checked: no pain, redness, or swelling. IV flushed thoroughly pre- and post-medication administration. Information reviewed with patient including reason for taking this medication, signs of allergic reaction and precautions. Verbalizes understanding. --00:02/11/21 Raul Marquez R.N. 01:28 02/11/2021 IV Fluids NS via IV site #1 Discontinued: bag #1 completed. Total amount infused: 1000 mL. IV patency established. IV site checked: no pain, redness, or swelling. IV flushed thoroughly. --01:28 02/11/21 Raul Marquez R.N. 02:35 02/11/2021 Cipro (Ciprofloxacin) PO Tablets 500 mg given. Allergies verified and confirmed 5 rights. Information reviewed with patient including reason for taking this medication, signs of allergic reaction and precautions. Verbalizes understanding. --02:35 02/11/21 Raul Marquez R.N. 02:35 02/11/2021 Flagyl (metroNIDAZOLE) PO Tablets 500 mg given. Allergies verified and confirmed 5 rights. Information reviewed with patient including reason for taking this medication, signs of allergic reaction and precautions. Verbalizes understanding. --02:35 02/11/21 Raul Marquez R.N.DISPOSITION / DISCHARGE 02:54 02/11/21. BP: 128/81. MAP: 96. HR: 78. RR: 12. O2 saturation: 100%. Temp: 98.6 F. Pain level now: 0/10. --02:56 02/11/21 Raul Marquez R.N. 02:46 02/11/2021 Site #1 removed upon discharge. Catheter intact. Bandage applied. --02:56 02/11/21 Raul Marquez R.N. 4 Clinical Report - Nurses [facility] [address] [place] [address] Phone #: ext- [phone] 02/10/2021 23:55 Patient: ELGIN KOO Sex: F : 1980 Age: 41y 02:49 02/11/21. Condition at departure: improved and stable. The goals identified in the patient's plan of care were met. Fall risk assessment completed. No risk factors identified. No learning barriers present. Discharge instructions provided and reviewed with the patient. Reviewed warnings. Reviewed medication(s) side effects, precautions, dosing and course information. Prescription(s) sent electronically to pharmacy. Treatments reviewed. Reviewed referral to a primary care physician. Patient verbalized understanding. Written instructions provided in Polish. The patient was discharged by the physician. She was discharged home. She left ambulatory and via taxi. --02:56 02/11/21 Raul Marquez R.N.Locked/Released at 02/11/2021 03:31 by Raul Marquez R.N. Name Value Range Interpretation Code Description Data Rhonda rce(s) Supporting Document(s) ID Date Data Source [id number] 02/10/2021 11:55:00 PM EDT [facility] 1 Clinical Report - Physicians/Mid Levels [facility] Department [address] [place] [address] Phone #: ext- [phone] 02/10/2021 23:55 Patient: ELGIN KOO Sex: F : 1980 Age: 41y Arrived- By private vehicle. Historian- patient. Disposition decision: 02:33 02/11/2021.HISTORY OF PRESENT ILLNESS Chief Complaint: ABDOMINAL PAIN. It is described as "pain" and it is described as generalized in location. This started today and is still present. The patient has had nausea, vomiting and diarrhea. No loss of appetite. (ABDOMINAL PAIN, NAUSEA and DIARRHEA.). Similar symptoms previously. Recent medical care: Not recently seen/assessed.REVIEW OF SYSTEMSNo constipation, black stools, hematemesis or difficulty with urination or urination. No pain with urination,urinary frequency or urinary frequency, bloody stools or fever. No headache, sore throat or throat orblurred vision. No chest pain or pain, difficulty breathing or cough. No joint pain or pain, skin rash orchills. No back pain or pain, chills, fever or double vision. No ear pain, epistaxis, runny nose, cough ordifficulty breathing. No abnormal bleeding, hematuria, neck pain, headache or easy bruising. The patienthas had abdominal pain, diarrhea, nausea and vomiting but not had weight loss.PAST HISTORYSee nurses notes. Problems: Fibromyalgia. Back Pain. DVT - Deep Venous Thrombosis. Seizure Disorder. (Stress induced). Additional Surgeries: CERVICAL CANCER. . Dental Surgery. Aysha filter. Partial hysterectomy. Previous Abdominal Surgery. Medications: Abilify Oral (Tablet 5 mg) 1 tablet, daily at bedtime, last dose 1999. 2 Clinical Report - Physicians/Mid Levels [facility] Emergency Department [address] [place] [address] Phone #: ext- [phone] 02/10/2021 23:55 Patient: ELGIN KOO Sex: F : 1980 Age: 41y Atorvastatin Calcium Oral (Tablet 20 mg), daily. Benzonatate Oral (Caps ule 100 mg), 3x a day. Eliquis Oral (Tablet 5 mg), 2x a day. Allergies: KOSTA Inhibitors. Acetaminophen. (SWEELS UP--MUST BE PREMEDICATED WITH BENADRYL) Cephalosporins. Motrin. Penicillins. Sudafed.SOCIAL HISTORYNo drug use.ADDITIONAL NOTESThe nursing notes have been reviewed.PHYSICAL EXAMVital Signs: 02/11/2021 00:02 BP: 119/74. MAP: 89. HR: 74. RR: 16. O2 saturation: 99%. Temp: 98 F.Pain level now: 5/10. Have been reviewed and appear to be correct. Blood pressure normal. Meanarterial pressure- normal. Heart rate normal. Respiratory rate normal. Temperature normal. Oxygensaturation normal.Appearance: Alert. Oriented X3. No acute distress.Eyes: Pupils equal, round and reactive to light. Eyes normal inspection.ENT: Nose normal. Pharynx normal.Neck: Normal inspection. Neck supple.CVS: Normal heart rate and rhythm. Heart sounds normal. Pulses normal.Respiratory: No respiratory distress. Painless inspiration. Breath sounds normal. Chest nontender.Abdomen: Soft. Mild tenderness (tender with minimal to almost non palpation). Bowel sounds normal.Back: Normal inspection. No CVA tenderness.Skin: Skin warm and dry. Normal skin color. No rash. Normal skin turgor.Extremities: Extremities exhibit normal ROM. No lower extremity edema.Neuro: Oriented X 3. No motor deficit. No sensory deficit.LABS, X-RAYS, AND EKGLaboratory Tests: CBC w Diff: (JULI: 02/11/2021 00:15) ( MsgRcvd 02/11/2021 00:37) Final results Test Result Flag Units (Reference) CBC W/AUTOMATED DIFF COMPLETE BLOOD COUNT WBC 5.9 10/uL (4.2 - 11.0) RBC 4.59 10/uL (4.20 - 5.40) HEMOGLOBIN 14.2 g/dL (12.0 - 16.0) HEMATOCRIT 39.7 % (37.0 - 47.0) MCV 86.5 fL (81.0 - 101) 3 Clinical Report - Physicians/Mid [facility] Emergency Department [address] [place] [address] Phone #: ext- [phone] 02/10/2021 23:55 Patient: ELGIN KOO Sex: F : 1980 Age: 41y MCH 30.9 pg (27.0 - 34.0) MCHC 35.8 g/dL (31.0 - 36.0) RDW 13.0 % (11.5 - 14.5) PLATELETS 181 10/uL (150 - 450) MPV 9.9 fL (7.4 - 10.4) NEUT 60.6 % (37.0 - 80.0) LYMPH 31.1 % (25.0 - 40.0) MONO 5.6 % (3.0 - 8.0) EOS 2.0 % (0.0 - 7.0) BASO 0.5 % (0.0 - 2.5) %IG 0.2 H % (0.0 - 0.0) %NRBC 0.0 % (0.0 - 0.0) #NEUT 3.58 10/uL (2.00 - 6.90) #LYMPH 1.84 10/uL (0.60 - 3.40) #MONO 0.33 10/uL (0.00 - 0.90) #EOS 0.12 10/uL (0.00 - 0.70) #BASO 0.03 10/uL (0.00 - 0.20) #IG 0.01 10/uL (0.00 - 0.10) #NRBC 0.00 10/uL (0.00 - 0.00) MANUAL DIFF NOT INDICATED RBC MORPH NOT INDICATEDCMP: (JULI: 02/11/2021 00:15) ( MsgRcvd 02/11/2021 00:48) Final results Test Result Flag Units (Reference) COMPREHENSIVE METABOLIC PANEL COMPREHENSIVE METABOLIC PANEL SODIUM 138 mEq/L (134 - 153) POTASSIUM 3.8 mEq/L (3.6 - 5.0) CHLORIDE 106 mEq/L (98 - 107) CO2 25 MEQ/L (22 - 30) GLUCOSE 101 H MG/DL (70 - 99) BUN 6 L MG/DL (7 - 21) CREATININE 0.7 MG/DL (0.7 - 1.5) BUN/CREAT 9 (8 - 27) TOTAL PROTEIN 6.2 L G/DL (6.3 - 8.2) ALBUMIN 4.2 G/DL (3.9 - 5.0) GLOBULIN 2.0 L GM/DL (2.4 - 3.2) A/G RATIO 2.1 H (0.8 - 2.0) CALCIUM 9.0 MG/DL (8.4 - 10.2) TOTAL BILI <0.7 MG/DL (0.2 - 1.3) ALKALINE PHOS 67 U/L (38 - 126) SGOT/AST 11 U/L (5 - 40) SGPT/ALT 9 U/L (7 - 56) ANION GAP 7.0 L mmol/L (8.0 - 16.0) AGE 41 yrs NON-AA GFR >60 mL/min AFR AMER GFR >60 mL/min Male GFR Interprentation 20-49 yrs >60 mL/min Kpwfwp11-56 yrs >56 mL/min Normal 60-69 yrs >49 mL/min Normal 70-79yrs>42 mL/min Normal 80 and above >35 mL/min Normal Female GFRInterpretation 20-39 yrs >60 mL/min Normal 40-49 yrs >58 mL/minNormal 50-59 yrs >51 mL/min Normal 60-69 yrs >45 mL/min Hthles21-34 yrs >39 mL/min Normal 80 and above >32 mL/min NormalLactic Acid: (JULI: 02/11/2021 00:15) ( MsgRcvd 02/11/2021 00:32) Final results Test Result Flag Units (Reference) LACTIC ACID 1.6 MMOL/L (0.2 - 2.2) 4 Clinical Report - Physicians/Mid [facility] Emergency Department [address] [place] [address] Phone #: ext- [phone] 02/10/2021 23:55 [id number] Sex: F : 1980 Age: 41yLipase: (JULI: 02/11/2021 00:15) ( MsgRcvd 02/11/2021 00:43) Final results Test Result Flag Units (Reference) LIPASE 22 U/L (13 - 60)Magnesium: (JULI: 02/11/2021 00:15) ( MsgRcvd 02/11/2021 00:43) Final results Test Result Flag Units (Reference) MAGNESIUM 1.8 MG/DL (1.7 - 2.2)Urinalysis: (JULI: 02/11/2021 00:25) ( [facility] 02/11/2021 00:37) Final results Test Result Flag Units (Reference) URINALYSIS URINALYSIS SOURCE R COLOR yellow (NORMAL: Yello CLARITY hazy (NORMAL: Clear SPEC GRAVITY 1.010 (1.001 - 1.030 pH 6 (5 - 9) GLUCOSE NORM (NORMAL: Negat BILIRUBIN NEG (NORMAL: Negat KETONE NEG (NORMAL: Negat PROTEIN NEG (NORMAL: Negat NITRITE NEG (NORMAL: Negat BLOOD 25 A (NORMAL: Negat LEUK EST 25 (NORMAL: Negat UROBI LINOGEN NOR (less than 1.0 MICROSCOPIC See Below WBC 3 - 5 (NORMAL: NONE RBC 1 - 3 (NORMAL: NONE EPITHELIAL MODERATE A (NORMAL: NONE BACTERIA 1+ SMALL (NORMAL: NONE MUCOUS 1+ (NORMAL: NONECT Abd PEL W/ IV Contrast Only: (JULI: 02/10/2021 23:57) ( [facility] 02/11/2021 02:21) Finalresults Exam CT ABD //T// PELVIS W/ [place] [address] ---------NAME--------- NUMBER SEX AGE ADMIT DISC. XRAY# F/C TYPE HANANE El [id number] F 41 02/10/21 [id number] [id number] E/R DATE OF : 1980 M/R# [id number] #: [id number] TR-04 LOCATION: EMERGENCY DEPT TRANSCRIBED: 02/11/21 2:[address] ABD //T// PELVIS W/ IV ONLY [id number] COMPLETED:02/11/21 1:02 [facility] [address] Reason(s): Abdominal Pain PHYS ICIAN: COONEYNORM R A D I O L O G Y R E P O R T PATIENT HISTORY: Fazal avalos Joshua - 02/11/2021 12:52:46 AM abd pain accumulated dlp 1298.4 mGy*cm est dlp 1287.5 mGy*cm Isovue 370 75mL lot [id number] NOVEMBER 2022, HYSTERECTOMY 12/27/2020. Time Out performed. Correct patient with 2 identifiers, type and amount of 5 Clinical Report - Physicians/Mid Levels [facility] Emergency Department [address] [place] [address] Phone #: ext- [phone] 02/10/2021 23:55 Patient: ELGIN KOO Sex: F : 1980 Age: 41ycontrast used, correct body part and side all verified prior to examination.-JJH/ ABD/PEL (DICOM Hx)EXAM: CT Abdomen and Pelvis with IV contrastCLINICAL HISTORY: Fazal Avalos Joshua - 02/11/2021 12:52:46 AMabd pain accumulated dlp 1298.4 mGy*cm est dlp 1287.5 mGy*cm Isovue 370 75mL [id number] NOVEMBER 2022, HYSTERECTOMY 12/27/2020. Time Out performed. Correct patientwith 2 identifiers, type and amount of contrast used, correct body part and sideall verified prior to examination.- JJHTECHNIQUE: Axial computed tomography images of the abdomen and pelvis withintravenous contrast. / All CT scans at this facility use dose modulation,iterative reconstruction, and/or weight-based dosing when appropriate to reduceradiation dose to as low as reasonably achievable.CONTRAST: with intravenous contrast. With; Isovue 370 75mL lot [id number]: None provided.FINDINGS:LUNG BASES: The lung bases appear clear. No pleural effusions are seen.LIVER: Unremarkable.GALLBLADDER AND BILE DUCTS: The gallbladder appears within normal limits. Noradioopaque gallstones are seen. No biliary ductal dilatation is evident.PANCREAS: Unremarkable.SPLEEN: Unremarkable.ADRENAL GLANDS: Unremarkable.KIDNEYS, URETERS, AND BLADDER: The kidneys appear within normal limits. There isno hydronephrosis or hydroureter. No urinary calculi are seen.STOMACH AND BOWEL: Mild colonic wall thickening.APPENDIX: No evidence of acute appendicitis on CT examination.PERITONEUM: No free fluid. No free air. LYMPH NODES: No lymphadenopathy is evident.REPRODUCTIVE: Unremarkable as visualized.VASCULATURE: No evidence of abdominal aortic aneurysm. IVC filter.BONES: No aggressive appearing osseous lesion. No acute osseous pathologyevident.IMPRESSIONS:Mild colonic wall thickening suggesting colitis.IVC filter.While performing the above CT examination, radiation dose reduction wasaccomplished utilizing automated exposure control, adjusting of the mA and kVbased on the patient's body size and/or the use of imperative reconstructivetechniques. 6 Clinical Report - Physicians/Mid Levels [facility] Emergency Department [address] [place] [address] Phone #: ext- [phone] 02/10/2021 23:55 Patient: ELGIN KOO Sex: F : 1980 Age: 41y Electronically Signed By: Mykel Trivedi M.D. , Radiologist Date/Time: 02/11/21 02:20.PROGRESS AND PROCEDURESPatient/family counseled. Disposition: Discharged. Condition: good and stable.CLINICAL IMPRESSION Acute generalized abdominal pain. Possible acute inflammatory colitis.INSTRUCTIONS Drink plenty of fluids. (please follow up with your primary care physician. return if worse or any new symptoms. It is important to take your antibiotics that have been prescribed to you.). Susanne ngs: Further evaluation is necessary. GENERAL WARNINGS: Return or contact your physician immediately if your condition worsens or changes unexpectedly, if not improving as expected, or if other problems arise. Your Current Medications: Your current home medications have been reviewed. CONTINUE TAKING THE FOLLOWING MEDICATIONS: Abilify Oral : Tablet 5 mg, 1 tablet daily, Last: 1999, at bedtime. Atorvastatin Calcium Oral : Tablet 20 mg, daily. Benzonatate Oral : Capsule 100 mg, 3x a day. Eliquis Oral : Tablet 5 mg, 2x a day. Prescription Medications: Flagyl 500 mg tablet Take 1 tablet twice a day -- Dispense 20 tablet. Refills: 0. Substitution permitted. [facility] # [address] [place] [address]. . Cipro 500 mg tablet Take 1 tablet twice a day as directed for 10 days -- Dispense 20 tablet. Refills: 0. Substitution permitted. [facility] # [facility] [place] [address]. 7 Clinical Report - Physicians/Mid Levels [facility] Emergency Department [address] [place] [address] Phone #: ext- [phone] 02/10/2021 23:55 Patient: ELGIN KOO Sex: F : 1980 Age: 41y . Follow-up: Follow up with your doctor in two days even if well. Call for an appointment. Reason for referral: evaluation. Summary of care provided to patient via paper. Understanding of the discharge instructions verbalized. Follow-up with: [facility], , , [address] [place] [address], [id number] Follow up in two days even if well. Call for an appointment. Reason for referral: evaluation. Summary of care provided to patient via paper.(Electronically signed by Linda Black MD 02/11/2021 02:45) Name Value Range Interpretation Code Description Data Rhonda rce(s) Supporting Document(s) ID Date Data Source [id number] 02/11/2021 02:20:00 AM EDT [address] [address] ---------NAME--------- NUMBER SEX AGE ADMIT DISC. XRAY# F/C TYPE HANANE El [id number] F 41 02/10/21 [id number] X6B E/R DATE OF : 1980 M/R# [id number] #: [id number] TR-04 LOCATION: EMERGENCY DEPT TRANSCRIBED: 02/11/21 2:[address] ABD //T// PELVIS W/ IV ONLY [id number] COMPLETED:02/11/21 1:02 [facility] [address] Reason(s): Abdominal Pain PHYSICIAN: ASHOK======= R A D I O L O G Y R E P O R T PATIENT HISTORY:Fazal avalos Joshua - 02/11/2021 12:52:46 AMabd pain accumulated dlp 1298.4 mGy*cm est dlp 1287.5 mGy*cm Isovue 370 75mL [id number] NOVEMBER 2022, HYSTERECTOMY 12/27/2020.Time Out performed. Correct patient with 2 identifiers, type and amount ofcontrast used, correct body part and side all verified prior to examination.-JJH/ ABD/PEL (DICOM Hx)EXAM: CT Abdomen and Pelvis with IV contrastCLINICAL HISTORY: Fazal Avalos Joshua - 02/11/2021 12:52:46 AMabd pain accumulated dlp 1298.4 mGy*cm est dlp 1287.5 mGy*cm Isovue 370 75mL [id number] NOVEMBER 2022, HYSTERECTOMY 12/27/2020. Time Out performed. Correct patientwith 2 identifiers, type and amount of contrast used, correct body part and sideall verified prior to examination.-JJHTECHNIQUE: Axial computed tomography images of the abdomen and pelvis withintravenous contrast. / All CT scans at this facility use dose modulation,iterative reconstruction, and/or weight-based dosing when appropriate to reduceradiation dose to as low as reasonably achievable.CONTRAST: with intravenous contrast. With; Isovue 370 75mL lot [id number] NovemberOMPARISON: None provided.FINDINGS:LUNG BASES: The lung bases appear clear. No pleural effusions are seen.LIVER: Unremarkable.GALLBLADDER AND BILE DUCTS: The gallbladder appears within normal limits. Noradioopaque gallstones are seen. No biliary ductal dilatation is evident.PANCREAS: Unremarkable.SPLEEN: Unremarkable.ADRENAL GLANDS: Unremarkable.KIDNEYS, URETERS, AND BLADDER: The kidneys appear within normal limits. There isno hydronephrosis or hydroureter. No urinary calculi are seen.STOMACH AND BOWEL: Mild colonic wall thickening.APPENDIX: No evidence of acute appendicitis on CT examination.PERITONEUM: No free fluid. No free air.LYMPH NODES: No lymphadenopathy is evident.REPRODUCTIVE: Unremarkable as vis ualized.VASCULATURE: No evidence of abdominal aortic aneurysm. IVC filter.BONES: No aggressive appearing osseous lesion. No acute osseous pathologyevident.IMPRESSIONS:Mild colonic wall thickening suggesting colitis.IVC filter.While performing the above CT examination, radiation dose reduction wasaccomplished utilizing automated exposure control, adjusting of the mA and kVbased on the patient's body size and/or the use of imperative reconstructivetechniques.Electronically Signed By:Mykel Farooq, M.D. , RadiologistDate/Time: 02/11/21 02:20 Name Value Range Interpretation Code Description Data Rhonda rce(s) Supporting Document(s) ID Date Data Source [id number] 02/11/2021 12:36:00 AM EDT [facility] Name Value Range Interpretation Code Description Data Rhonda rce(s) Supporting Document(s) [facility] SOURCE R [facility] COLOR yellow NORMAL: Yellow [facility] CLARITY hazy NORMAL: Clear [facility] Specific gravity of Urine by Test strip 1.010 1.001 - 1.030 [facility] pH 6 5 - 9 [facility] al Glucose [Mass/volume] in Urine by Test strip NORM NORMAL: Negat [facility] Bilirubin.total [Presence] in Urine by Test strip NEG NORMAL: Negative [facility] Ketones [Presence] in Urine by Test strip NEG NORMAL: Negative [facility] Protein [Mass/volume] in Urine by Test strip NEG NORMAL: Negat [facility] Nitrite [Presence] in Urine by Test strip NEG NORMAL: Negative [facility] BLOOD 25 NORMAL: Negative [facility] LEUK EST 25 NORMAL: Negative [facility] Urobilinogen [Mass/volume] in Urine by Test strip NOR less emily n 1.0 mg/dL [facility] MICROSCOPIC See Below [facility] ital WBC 3 - 5 NORMAL: NONE SEEN [facility] Erythrocytes [#/volume] in Urine by Test strip 1 - 3 NORMAL: NON E SEEN [facility] EPITHELIAL MODERATE NORMAL: NONE SEEN [facility] Bacteria [Presence] in Urine sediment by Light microscopy 1+ SMALL NORMAL: NONE SEEN [facility] Mucus [Presence] in Urine sediment by Light microscopy 1+ NOR MAL: NONE SEEN [facility] ID Date Data Source [id number] 02/11/2021 12:47:00 AM EDT [facility] Name Value Range Interpretation Code Description Data Rhonda rce(s) Supporting Document(s) COMPREHENSIVE METABOLIC PANEL [facility] COMPREHENSIVE METABOLIC PANEL Sodium [Moles/volume] in Serum or Plasma 138 mEq/L 134 - 153 [facility] Potassium [Moles/volume] in Serum or Plasma 3.8 mEq/L 3.6 - 5.0 [facility] Chloride [Moles/volume] in Serum or Plasma 106 mEq/L 98 - 107 [facility] Carbon dioxide, total [Moles/volume] in Serum or Plasma 25 MEQ/L 22 - 30 [facility] Glucose [Mass/volume] in Serum or Plasma 101 MG/DL 70 - 99 H [facility] BUN 6 MG/DL 7 - 21 L [facility] al Creatinine [Mass/volume] in Serum or Plasma 0.7 MG/DL 0.7 - 1.5 [facility] BUN/CREAT 9 8 - 27 [facility] Protein [Mass/volume] in Serum or Plasma 6.2 G/DL 6.3 - 8.2 L [facility] Albumin [Mass/volume] in Serum or Plasma 4.2 G/DL 3.9 - 5.0 [facility] Globulin [Mass/volume] in Serum by calculation 2.0 GM/DL 2.4 - 3.2 L [facility] A/G RATIO 2.1 0.8 - 2.0 H [facility] Calcium [Mass/volume] in Serum or Plasma 9.0 MG/DL 8.4 - 10.2 [facility] Bilirubin.total [Mass/volume] in Serum or Plasma <0.7 MG/DL 0.2 - 1.3 [facility] Alkaline phosphatase [Enzymatic activity/volume] in Serum or Plasma 67 U/L 38 - 126 [facility] Aspartate aminotransferase [Enzymatic activity/volume] in Serum or Plasma 11 U/L 5 - 40 [facility] Alanine aminotransferase [Enzymatic activity/volume] in Seru m or Plasma 9 U/L 7 - 56 [facility] Anion gap 3 in Serum or Plasma 7.0 mmol/L 8.0 - 16.0 L [facility] AGE 41 yrs [facility] al NON-AA GFR >60 mL/min [facility] ital AFR AMER GFR >60 mL/min [facility] Male GFR In terprentation 20-49 yrs >60 mL/min Normal 50-59 yrs >56 mL/min Normal 60-69 yrs >49 mL/min Normal 70-79yrs >42 mL/min Normal 80 and above >35 mL/min Normal Female GFR Interpretation 20-39 yrs >60 mL/min Normal 40-49 yrs >58 mL/min Normal 50-59 yrs >51 mL/min Normal 60-69 yrs >45 mL/min Normal 70-79 yrs >39 mL/min Normal 80 and above >32 mL/min Normal ID Date Data Source [id number] 02/11/2021 12:43:00 AM EDT [facility] Name Value Range Interpretation Code Description Data Rhonda rce(s) Supporting Document(s) Magnesium [Mass/volume] in Serum or Plasma 1.8 MG/DL 1.7 - 2.2 [facility] ID Date Data Source [id number] 02/11/2021 12:43:00 AM EDT [facility] Name Value Range Interpretation Code Description Data Rhonda rce(s) Supporting Document(s) Lipase [Enzymatic activity/volume] in Serum or Plasma 22 U/L 13 - 60 [facility] ID Date Data Source [id number] 02/11/2021 12:37:00 AM EDT [facility] Name Value Range Interpretation Code Description Data Rhonda rce(s) Supporting Document(s) CBC W/AUTOMATED DIFF [facility] COMPLETE BLOOD COUNT Leukocytes [#/volume] in Blood by Automated count 5.9 10^3/uL 4.2 - 1 1.0 [facility] Erythrocytes [#/volume] in Blood by Automated count 4.59 10^6/uL 4. 20 - 5.40 [facility] Hemoglobin [Mass/volume] in Blood 14.2 g/dL 12.0 - 16.0 [facility] Hematocrit [Volume Fraction] of Blood by Automated count 39.7 % 3 7.0 - 47.0 [facility] Erythrocyte mean corpuscular volume [Entitic volume] by Auto mated count 86.5 fL 81.0 - 101 [facility] Erythrocyte mean corpuscular hemoglobin [Entitic mass] by Automated count 30.9 pg 27.0 - 34.0 [facility] Erythrocyte mean corpuscular hemoglobin concentration [Mass/volume] by Automated count 35.8 g/dL 31.0 - 36.0 [facility] Erythrocyte distribution width [Ratio] by Automated count 13.0 % 11.5 - 14.5 [facility] Platelets [#/volume] in Blood by Automated count 181 10^3/uL 150 - 45 0 [facility] Platelet mean volume [Entitic volume] in Blood by Automated count 9.9 fL 7.4 - 10.4 [facility] Neutrophils/100 leukocytes in Blood by Automated count 60.6 % 37. 0 - 80.0 [facility] Lymphocytes/100 leukocytes in Blood by Manual count 31.1 % 25.0 - 40.0 [facility] Monocytes/100 leukocytes in Blood by Automated count 5.6 % 3.0 - 8.0 [facility] Eosinophils/100 leukocytes in Blood by Automated count 2.0 % 0.0 - 7.0 [facility] Basophils/100 leukocytes in Blood by Automated count 0.5 % 0.0 - 2.5 [facility] %IG 0.2 % 0.0 - 0.0 H [facility] %NRBC 0.0 % 0.0 - 0.0 [facility] al Neutrophils [#/volume] in Blood by Automated count 3.58 10^3/uL 2.00 - 6.90 [facility] Lymphocytes [#/volume] in Blood by Automated count 1.84 10^3/uL 0.60 - 3.40 [facility] Monocytes [#/volume] in Blood by Automated count 0.33 10^3/uL 0.00 - 0.90 [facility] Eosinophils [#/volume] in Blood by Automated count 0.12 10^3/uL 0.00 - 0.70 [facility] Basophils [#/volume] in Blood by Automated count 0.03 10^3/uL 0.00 - 0.20 [facility] #IG 0.01 10^3/uL 0.00 - 0.10 [facility] #NRBC 0.00 10^3/uL 0.00 - 0.00 [facility] MANUAL DIFF NOT INDICATED [facility] RBC MORPH NOT INDICATED [facility] ID Date Data Source [id number] 02/11/2021 12:32:00 AM EDT [facility] Name Value Range Interpretation Code Description Data Rhonda rce(s) Supporting Document(s) Lactate [Moles/volume] in Serum or Plasma 1.6 MMOL/L 0.2 - 2.2 [facility] ID Date Data Source [id number] 12/22/2020 08:20:00 AM EDT [facility] Name Value Range Interpretation Code Description Data Rhonda rce(s) Supporting Document(s) SARS-CoV-2 (COVID-19) RNA [Presence] in Respiratory specimen by MARTA with probe detection Not Detected [facility] This lab was ordered by [facility] and reported by [employer]. ID Date Data Source [id number] 12/13/2020 04:26:00 PM EDT [facility] 1 OrderSheet [facility] Emergency Department [address] [place] [address] Phone #: ext- [phone] 12/13/2020 16:23 Patient: ELGIN KOO Sex: F : 1980 Age: 40yWEIGHT:107.5 kg (S) HEIGHT:65 inches (S) BMI:39.5ALLERGIES: KOSTA Inhibitors, Acetaminophen, Cephalosporins, Motrin, Penicillins, SudafedCHIEF COMPLAINT: abdominal painDIAGNOSIS: Abdominal painLAB ORDERSOrder Description Priority Entered Acknowledged InitialedUrinalysis (Clean STAT 16:39 12/13/2020 16:39 Gaurav Resendez) Deanna Resendez R.N.; R.N. Verbal order per; Balaji GarciaBeta-HCG, Qual STAT 17:03 12/13/2020 17:06 Rick Resendez Jack ; R.NAshleyCBC w Diff STAT 17:03 12/13/2020 17:32 Deanna Resendez Jack ; R.N.BMP STAT 17:03 12/13/2020 17:32 Deanna Resendez Jack ; R.N.Urine Drug Screen STAT 17:06 12/13/2020 17:12 Deanna Resendez Jack ; R.N.DIAGNOSTIC STUDY ORDERSOrder Description Priority Entered Acknowledged InitialedUS PELVIC STAT 17:03 12/13/2020 Initialed: 17:35 Balaji GarciaCOMPLETE W TV Balaji Garcia ; Cancelled: Physician Order 17:35 Sudha,IF NEEDED Balaji(Oxygen?(No))(IV?(Yes)) Reason for Study: pelvic painMEDICATION/IV/DRIP/FLUID ORDERSOrder Description Priority Entered Acknowledged InitialedMorphine IVP 4 mg 17:06 12/13/2020 17:11 Deanna Resendez(NOW x1, HIGH Balaji Garcia ; R.N.ALERTMEDICATION)GENERAL ORDERSOrder Description Priority Entered Acknowledged Initialed 2 OrderSheet [facility] Emergency Department [address] [place] [address] Phone #: ext- [phone] 12/13/2020 16:23 Patient: ELGIN KOO Sex: F : 1980 Age: 40y[Electronically signed by Deanna Resendez R.N. (18:24 12/13/2020)][Electronically signed by Balaji Garcia (19:47 12/13/2020)][Electronically locked by Deanna Resendez R.N. (18:24 12/13/2020)] Name Value Range Interpretation Code Description Data Rhonda rce(s) Supporting Document(s) ID Date Data Source [id number] 12/13/2020 04:26:00 PM EDT [facility] 1 Medication Reconciliation Report [facility] Emergency Department [address] [place] [address] Phone #: ext- [phone] 12/13/2020 16:23 Patient: ELGIN KOO Sex: F : 1980 Age: 40yWeight: 107.5 kgHeight/Length: 65 in.BMI: 39.5ALLERGIES: KOSTA Inhibitors, Acetaminophen, Cephalosporins, Motrin, Penicillins, SudafedThe patient's Home Medications are listed below:THE FOLLOWING MEDICATIONS NEED TO BE RECONCILED: Abilify Oral (5 mg) 1 tablet, daily, last dose: 1999, at bedtime Atorvastatin Calcium Oral (20 mg), daily Benzonatate Oral (100 mg), 3x a day Eliquis Oral (5 mg), 2x a dayThe source(s) of the original Home Medication information:Not obtained.The following Medications were given to the patient in the Emergency Department:Morphine [IVP] IVP 4 mg, administered: 17:11 12/13/2020The following Medications were prescribed to the patient:None. Name Value Range Interpretation Code Description Data Rhonda rce(s) Supporting Document(s) ID Date Data Source [id number] 12/13/2020 04:26:00 PM EDT [facility] 1 Medication Administration Record [facility] Emergency Department [address] [place] [address] Phone #: ext- [phone] 12/13/2020 16:23 Patient: ELGIN KOO Sex: F : 1980 Age: 40yWeight: 107.5 kgHeight/Length: 65 inBMI: 39.5ALLERGIES: KOSTA Inhibitors, Acetaminophen, Cephalosporins, Motrin, Penicillins, Sudafed Date/Time Medication Administered Medication OrderedGiven MORPHINE [IVP] Morphine IVP 4 mg (NOW x1, HIGH17:11 12/13/2020 Dose: 4 mg IVP ALERT MEDICATION)Deanna Resendez R.N. Site: #1 right AC Name Value Range Interpretation Code Description Data Rhonda rce(s) Supporting Document(s) ID Date Data Source [id number] 12/13/2020 04:26:00 PM EDT [facility] 1 General Instructions [facility] Emergency Department [address] [place] [address] Phone #: rkn- [phone] 12/13/2020 16:23 Patient: ELGIN KOO Sex: F : 1980 Age: 40yChronic right lower quadrant abdominal pain.INSTRUCTIONSWarnings: Further evaluation is necessary.GENERAL WARNINGS: Return or contact your physician immediately if your condition worsens orchanges unexpectedly, if not improving as expected, or if other problems arise.Follow-up:Follow up with your healthcare provider Wednesday in three days if not well. Call for an appointment.Understanding of the discharge instructions verbalized by patient. ADDITIONAL INFORMATIONUnknown Causes of Abdominal Pain (Female) 2 General Instructions [facility] Emergency Department [address] [place] [address] Phone #: ext- [phone] 12/13/2020 16:23 Patient: ELGIN KOO Sex: F : 1980 Age: 40yThe exact cause of your belly (abdominal) pain is not clear. This does not mean that this is somethingto worry about. Everyone likes to know the exact cause of the problem. But sometimes with bellypain, there is no clear-cut cause, and this cou ld be a good thing. The good news is that yoursymptoms can be treated, and you will feel better.Your condition does not seem serious now. But sometimes the signs of a serious problem may takemore time to appear. For this reason, it is important for you to watch for any new symptoms,problems, or worsening of your condition.Over the next few days, the abdominal pain may come and go. Or it may be constant. Other commonsymptoms can include nausea and vomiting. Sometimes it can be difficult to tell if you feel nauseous.You may just feel bad and not connect that feeling to nausea. Constipation, diarrhea, and a fever maygo along with the pain.The pain may continue even if treated correctly over the following days. Depending on how things go,sometimes the cause can become clear and may need more or different treatment. Additionalevaluations, medicines, or tests may also be needed.Home careYour healthcare provider may prescribe medicine for pain, symptoms, or an infection. Follow thehealthcare provider's instructions for taking these medicines. 3 General Instructions [facility] Emergency Department [address] [place] [address] Phone #: ext- [phone] 12/13/2020 16:23 [id number] Sex: F : 1980 Age: 40y[facility] Rest as much as you can until your next exam. No strenuous activities. Try to find positions that ease discomfort. A small pillow placed on the abdomen may help relieve pain. Something warm on your abdomen (such as a heating pad) may help, but be careful not to burn yourself.Diet Don't force yourself to eat, especially if having cramps, vomiting, or diarrhea. Water is important so you don't get dehydrated. Soup may also be good. Sports drinks may also help, especially if they are not too acidic. Don't drink sugary drinks as this can make things worse. Take liquids in small amounts. Don't guzzle them. Caffeine sometimes makes the pain and cramping worse. Don't take dairy products if you have vomiting or diarrhea. Don't eat large amounts at a time. Wait a few minutes between bites. Eat a diet l ow in fiber (called a low-residue diet). Foods allowed include refined breads, white rice, fruit and vegetable juices without pulp, tender meats. These foods will pass more easily through the intestine. Don't have whole-grain foods, whole fruits and vegetables, meats, seeds and nuts, fried or fatty foods, dairy, alcohol and spicy foods until your symptoms go away.Follow-up careFollow up with your healthcare provider, or as advised, if your pain does not begin to improve in thenext 24 hours.Call [phone] if any of these occur: Trouble breathing Confusion Fainting or loss of consciousness Rapid heart rate 4 General Instructions [facility] Emergency Department [address] [place] [address] Phone #: ext- [phone] 12/13/2020 16:23 Patient: ELGIN KOO Sex: F : 1980 Age: 40y SeizureWhen to seek medical adviceCall your healthcare provider right away if any of these occur: Pain gets worse or moves to the right lower abdomen New or worsening vomiting or diarrhea Swelling of the abdomen Unable to pass stool for more than 3 days Fever of 100.4F (38C) or higher, or as directed by your healthcare provider. Blood in vomit or bowel movements (dark red or black color) Yellow color of eyes and skin (jaundice) Weakness, dizziness Chest, arm, back, neck, or jaw pain Unexpected vaginal bleeding or missed period Can't keep down liquids or water and you are getting dehydrated [id number] [employer]. [address] [place] [address]. All rights reserved. This information is not intended as asubstitute for professional medical care. Always follow your healthcare professional's instructions. You have been given the following additional information: Abdominal Pain, Unknown Cause, (Female)(Electronically signed by Garcia Balaji 12/13/2020 19:47) Name Value Range Interpretation Code Description Data Rhonda rce(s) Supporting Document(s) ID Date Data Source [id number] 12/13/2020 04:26:00 PM EDT [facility] 1 Clinical Report - Nurses [facility] Department [address] [place] [address] Phone #: ext- [phone] 12/13/2020 16:23 Patient: ELGIN KOO Sex: F : 1980 Age: 40yTRIAGEArrived by private vehicle. Historian: patient. Unaccompanied. ( 3 days ago started with lower right,was at the ED for 2 hours and left and came here, surgery schedule for december 27 for hysterectomy, has hadthis edis before called surgeon today and was told to go to ED).Acuity: LEVEL 3.Chief Complaint: ABDOMINAL PAIN.Alert.Onset. (3 dyas). She has had abdominal pain. The pain is described as located in the RLQ.Treatment SALON RECEPTIONIST:None.SEPSIS SCREEN: SIRS SCREEN NEGATIVE. SEPSIS SCREEN NEGATIVE. No suspected or confirmedsigns of infection present. --16:37 12/13/20 Deanna Resendez R.N.16:29 12/13/20. BP: 127/59. MAP: 81. HR: 79. RR: 18. O2 saturation: 97%. Temp: 98.8 F (oral). Painlevel now: 01/02. --16:37 12/13/20 Deanna Resendez R.N.Weight: 107.5 kg stated. Height/Length: 65 inches Per Patient. BMI: 39.5. --16:29 12/13/20 Deanna Resendez R.N.MedicationsAbilify Oral (Tablet 5 mg) 1 tablet, daily at bedtime, last dose [id number] 1999. --16:33 12/13/20 Deanna Resendez R.N. Benzonatate Oral (Capsule 100 mg), 3x a day. --16:33 12/13/20 Deanna Resendez R.N. Atorvastatin Calcium Oral (Tablet 20 mg), daily. --16:33 12/13/20 Deanna Resendez R.N. Eliquis Oral (Tablet 5 mg), 2x a day. --16:34 12/13/20 Deanna Resendez R.N.AllergiesACE Inhibitors.Acetaminophen. (SWEELS UP--MUST BE PREMEDICATED WITH BENADRYL)Cephalosporins.Motrin.Penicillins.Sudafed. --16:33 12/13/20 Deanna Resendez R.N.PROBLEMS:DVT - Deep Venous Thrombosis.Fibromyalgia. 2 Clinical Report - Nurses [facility] Department [address] [place] [address] Phone #: ext- [phone] 12/13/2020 16:23 [id number] Sex[facility] F : 1980 Age: 40yBack Pain.Myofascial Strain.Seizure Disorder: (Stress induced). --16:35 12/13/20 Deanna Resendez R.N.The following entry was modified by Deanna Resendez R.N., 16:35 12/13/20Schizophrenia. --16:34 12/13/20 Deanna Resendez R.N.The following entry was modified by Deanna Resendez R.N., 16:35 12/13/20PTSD. --16:34 12/13/20 Deanna Resendez R.N..ADDITIONAL SURGERIES:CERVICAL CANCER..Dental Surgery.Aysha filter. --16:35 12/13/20 Deanna Resendez R.N.Partial hysterectomy. --16:35 12/13/20 Deanna Resendez R.N.HistoryPAST MEDICAL HX: Immunizations: up-to-date. Last normal menstrual period- 1 weeks ago.SOCIAL HX: Heavy tobacco smoker- 1 pack per day. No alcohol use or drug use. No recent travel. Noknown contact with a sick individual. She was offered HIV testing but declined and hepatitis C testing butdeclined. She has not traveled outside the [place]Infectious disease exposure: No infectious disease exposure. Patient is not a known carrier of tuberculosis,hepatitis, HIV, MRSA or VRE. Patient is not a known carrier of CRE.SELF HARM ASSESSMENT: Self harm assessment was performed. The patient answered "no" to thequestion(s) "Have you recently felt down, depressed, or hopeless?", "Do you have thoughts of harming orkilling yourself?", "Do you have a plan for harming or killing yourself?", "Have you recently had thoughtsabout harming or killing others?", "Do you have any dangerous items in your possession?", "Have younoticed less interest or pleasure in doing things?", "Are you here because you tried to hurt yourself?" and"Have you ever tried to hurt yourself before today?".ABUSE ASSESSMENT: Abuse assessment. Abuse denied. No suspicion of abuse. No report of abuse.NUTRITIONAL RISK ASSESSMENT: The nutritional risk assessment revealed no deficiencies.FUNCTIONAL ASSESSMENT: Functional assessment: no impairments noted.LEARNING NEEDS ASSESSMENT: The learning needs assessment revealed no barriers.FALL RISK ASSESSMENT: Fall risk assessment completed. No risk factors identified.SKIN INTEGRITY ASSESSMENT: Skin integrity risk assessment completed. No skin integrity riskidentified. --16:37 12/13/20 Deanna Resendez R.N.FAMILY HX: 3 Clinical Report - Nurses [facility] Department [address] [place] [address] Phone #: ext- [phone] 12/13/2020 16:23 Patient: ELGIN KOO [facility]#: [id number] Sex: F : 1980 Age: 40y Mother: Acute Coronary Syndrome. --17:11 12/13/20 Balaji Garcia Father: Diabetes Mellitus. --17:11 12/13/20 Sudha Balaji. Interventions Identification band on patient. To treatment room. --16:37 12/13/20 Deanna Resendez R.N.PHYSICAL ASSESSMENTGENERAL / NEURO / PSYCH: Alert. Oriented X 4.HEENT: Mucous membranes are pink.RESPIRATORY: Respirations not labored. Breath sounds within normal limits.CVS: Normal sinus rhythm noted. Capillary refill less than 2 seconds.GI / : Abdomen soft. Abdominal tenderness in the right lower quadrant. Guarding present. Bowelsounds within normal limits.SKIN: Skin is warm and dry. --16:38 12/13/20 Deanna Resendez R.N.NURSING PROGRESS NOTESPatient gowned. Reassurance given. Two patient identifiers checked. Call light placed in reach. Siderails up x 2. Bed placed in lowest position. Brakes of bed on. Patient ready for evaluation. --16: Deanna Resendez R.N. Patient ID band checked for patient name: patient confirmed. Clean catch urine collected; sample sent to lab for urinalysis. Specimen labeled in the presence of the patient. --16:39 12/13/20 Deanna Cruz R.N. 16:51 12/13/2020 Site #1 started via IV in the right antecubital space with an 18g angiocath, with aseptic technique and good blood return; one attempt. --16:52 12/13/20 Deanna Resendez R.N. 17:11 12/13/2020 Morphine IVP 4 mg given over 2 minute(s) via site #1. Allergies verified and confirmed 5 rights. IV patency established. IV site checked: no pain, redness, or swelling. IV flushed thoroughly pre- and post-medication administration. IVP given by RN. Information reviewed with patient including reason for taking this medication, signs of allergic reaction, precautions and sedative warning. Verbalizes understanding. --17:12 12/13/20 Deanna Resendez R.N. 17:20 12/13/20. BP: 120/76. MAP: 90. HR: 77. RR: 16. O2 saturation: 95%. --17:54 12/13/20 Deanna Resendez R.N. late entry - 17:20 12/13/20. ( resting quietly). --17:54 12/13/20 Deanna Resendez R.N. 18:22 12/13/2020 Site #1 removed upon discharge. Pressure dressing applied. --18:22 12/13/20 Deanna Resendez R.N.DISPOSITION / DISCHARGE Condition at departure: improved. No learning barriers present. Patient verbalized understanding. Written instructions provided in Polish. The patient was discharged home and unaccompanied at time of discharge. She left ambulatory and via private vehicle. Patient driving. --18:24 12/13/20 Deanna Resendez R.N. 4 Clinical Report - Nurses [facility] Department [address] [place] [address] Phone #: ext- [phone] 12/13/2020 16:23 [id number] Sex[facility] F : 1980 Age: 40y 18:23 12/13/20. BP: 120/74. MAP: 89. HR: 75. RR: 18. O2 saturation: 100%. Temp: 98.6 F. Pain level now: 11/02. --18:24 12/13/20 Deanna Resendez R.N. Departure time: 18:24 12/13/2020. --18:24 12/13/20 Deanna Resendez R.N.Locked/Released at 12/13/2020 18:24 by Deanna Resendez R.N. Name Value Range Interpretation Code Description Data Rhonda rce(s) Supporting Document(s) ID Date Data Source [id number] 12/13/2020 04:26:00 PM EDT [facility] 1 Clinical Report - Physicians/Mid Levels [facility] Emergency Department [address] [place] [address] Phone #: ext- [phone] 12/13/2020 16:23 Patient: ELGIN KOO Sex: F : 1980 Age: 40y Time Seen: 17:04 12/13/2020. Arrived- By private vehicle. Historian- patient.HISTORY OF PRESENT ILLNESS Chief Complaint: ABDOMINAL PAIN. This started 4 months and is still present (worse 3 days). It is described as sharp and well localized. No radiation. It is described as located in the right lower quadrant and right pelvis. At its maximum, severity described as moderate. When seen in the E.D., severity described as moderate. Modifying factors- worsened by movement. No nausea, loss of appetite, vomiting or diarrhea. No additional abdominal pain. (She is scheduled for total hysterectomy and oophorectomy in two weeks. She has been dealing with right lower pelvic pain for months. Left ovary removed and had a partial hysterectomy in 2013. Despite surgery, she still has heavy periods.). Similar symptoms previously. Patient has had similar symptoms many times. Recent medical care: The patient was seen recently by a health care provider. ( Went to [facility] ED but waited too long so she left).REVIEW OF SYSTEMSLast normal menstrual period- about 1 weeks ago. No constipation, difficulty with urination, pain withurination, headache or difficulty breathing. No skin rash or back pain. Denies current . Allother systems reviewed and are negative.PAST HISTORYSee nurses notes. No history of gallstones. Problems: Anxiety Reaction. Schizophrenia. DVT - Deep Venous Thrombosis. Fibromyalgia. UTI - Urinary Tract Infection [Resolved]. Surg eries: Prior abdominal surgery. Additional Surgeries: CERVICAL CANCER. C- Section. Maurice filter. Partial hysterectomy. 2 Clinical Report - Physicians/Mid Levels [facility] Department [address] [place] [address] Phone #: ext- [phone] 12/13/2020 16:23 [id number] Sex[facility] F : 1980 Age: 40y Medications: Eliquis Oral (Tablet 5 mg), 2x a day. Atorvastatin Calcium Oral (Tablet 20 mg), daily. Benzonatate Oral (Capsule 100 mg), 3x a day. Abilify Oral (Tablet 5 mg) 1 tablet, daily at bedtime, last dose 1999. Allergies: KOSTA Inhibitors. Acetaminophen. (SWEELS UP--MUST BE PREMEDICATED WITH BENADRYL) Cephalosporins. Motrin. Penicillins. Sudafed.SOCIAL HISTORYCurrent every day smoker.FAMILY HISTORYMother: Acute Coronary Syndrome.Father: Diabetes Mellitus.ADDITIONAL NOTESThe nursing notes have been reviewed.PHYSICAL EXAMVital Signs: 12/13/2020 16:29 BP: 127/59. MAP: 81. HR: 79. RR: 18. O2 saturation: 97%. Temp: 98.8 F.Pain level now: 6/10.Appearance: Alert. Oriented X3. Appears to be in pain.Eyes: Pupils equal, round and reactive to light. Eyes normal inspection.ENT: Nose normal. Pharynx normal.Neck: Normal inspection. Neck supple.CVS: Normal heart rate and rhythm. Heart sounds normal.Respiratory: No respiratory distress. Breath sounds normal. Chest nontender.Abdomen: Soft. Moderate tenderness in the right lower quadrant. Bowel sounds normal. Noorganomegaly. Femoral pulses equal. Obese. No rebound tenderness.Back: Normal inspection. No CVA tenderness.Skin: Skin warm and dry. Normal skin color. No rash. Normal skin turgor.Extremities: Extremities exhibit normal ROM. No lower extremity edema.Neuro: Oriented X 3. No motor deficit. No sensory deficit.LABS, X-RAYS, AND EKGLaboratory Tests: Drug Screen-Urine: (JULI: 12/13/2020 16:40) ( MsgRcvd 12/13/2020 18:05) Final results Test Result Flag Units (Reference) 3 Clinical Report - Physicians/Mid Levels [facility] Department [address] [place] [address] Phone #: ext- [phone] 12/13/2020 16:23 Patient: ELGIN KOO Sex: F : 1980 Age: 40y DRUG SCREEN URINE URINE DRUG SCREEN AMPHETAMINES NEGATIVE (NORMAL: NEGAT BARBITURATES NEGATIVE (NORMAL: NEGAT BENZO NEGATIVE (NORMAL: NEGAT COCAINE NEGATIVE (NORMAL: NEGAT THC NEGATIVE (NORMAL: NEGAT OPIATES NEGATIVE (NORMAL: NEGAT PCP NEGATIVE (NORMAL: NEGAT \\BLDo\\URINE DRUG SCREEN INTERPRETATION\\BLDx\\ THE CUTOFFF LEVELS FORDETECTION ARE FOLLOWS: AMPHETAMINES 1000 ng/mlBARBITUARATES 200 ng/ml BENZODIAZEPINES 100 ng/mlTHC 50 ng/ml PHENCYCLIDINE 25 ng/mlOPIATES 300 ng/ml COCAINE 300 ng/mlALL POSITIVES ARE CONSIDERED PRESUMPTIVE POSITIVE CONFIRMATION WILL BE PERFORMED AT [facility].Beta-HCG, Qual Urine: (JULI: 12/13/2020 16:40) ( CagRcvd 12/13/2020 17:38) Final results Test Result Flag Units (Reference) HCG URINE QUAL NEGATIVE (NORMAL: NEGAT HCG URINE QL REENTER NEGATIVE (NORMAL: NEGAT { KIT LOT # [id number] ){ KIT EXP [id number] ){ PROCEDURAL CONTROL VALID)CBC w Diff: (JULI: 12/13/2020 17:20) ( CagRcvd 12/13/2020 17:39) Final results Test Result Flag Units (Reference) CBC W/AUTOMATED DIFF COMPLETE BLOOD COUNT WBC 5.2 10/uL (4.2 - 11.0) RBC 4.30 10/uL (4.20 - 5.40) HEMOGLOBIN 13.6 g/dL (12.0 - 16.0) HEMATOCRIT 37.9 % (37.0 - 47.0) MCV 88.1 fL (81.0 - 101) MCH 31.6 pg (27.0 - 34.0) MCHC 35.9 g/dL (31.0 - 36.0) RDW 13.2 % (11.5 - 14.5) PLATELETS 187 10/uL (150 - 450) MPV 9.4 fL (7.4 - 10.4) NEUT 57.6 % (37.0 - 80.0) LYMPH 33.8 % (25.0 - 40.0) MONO 6.2 % (3.0 - 8.0) EOS 1.6 % (0.0 - 7.0) BASO 0.6 % (0.0 - 2.5) %IG 0.2 H % (0.0 - 0.0) %NRBC 0.0 % (0.0 - 0.0) #NEUT 2.97 10/uL (2.00 - 6.90) #LYMPH 1.74 10/uL (0.60 - 3.40) #MONO 0.32 10/uL (0.00 - 0.90) #EOS 0.08 10/uL (0.00 - 0.70) #BASO 0.03 10/uL (0.00 - 0.20) #IG 0.01 10/uL (0.00 - 0.10) #NRBC 0.00 10/uL (0.00 - 0.00) MANUAL DIFF NOT INDICATED RBC MORPH NOT INDICATED 4 Clinical Report - Physicians/Mid Levels [facility] Department [address] [place] [address] Phone #: ext- [phone] 12/13/2020 16:23 Patient: ELGIN KOO [facility]#: [id number] Sex: F : 1980 Age: 40y BMP: (JULI: 12/13/2020 17:20) ( MsgRcvd 12/13/2020 18:05) Final results Test Result Flag Units (Reference) BASIC METABOLIC PANEL BASIC METABOLIC PANEL SODIUM 138 mEq/L (134 - 153) POTASSIUM 4.0 mEq/L (3.6 - 5.0) CHLORIDE 105 mEq/L (98 - 107) CO2 25 MEQ/L (22 - 30) GLUCOSE 104 H MG/DL (70 - 99) BUN 8 MG/DL (7 - 21) CREATININE 0.7 MG/DL (0.7 - 1.5) BUN/CREAT 11 (8 - 27) CALCIUM 9.0 MG/DL (8.4 - 10.2) ANION GAP 8.0 mmol/L (8.0 - 16.0) AGE 40 yrs AFR AMER GFR >60 mL/min NON-AA GFR >60 mL/min Male GFR Interprentation 20-49 yrs >60 mL/min Normal 50-59 yrs >56 mL/min Normal 60-69 yrs >49 mL/min Normal 70-79yrs >42 mL/min Normal 80 and above >35 mL/min Normal Female GFR Interpretation 20-39 yrs >60 mL/min Normal 40-49 yrs >58 mL/min Normal 50-59 yrs >51 mL/min Normal 60-69 yrs >45 mL/min Normal 70-79 yrs >39 mL/min Normal 80 and above >32 mL/min Normal US PELVIC COMPLETE W TV IF NEEDED: (JULI: 12/13/2020 17:03) ( MsgRcvd 12/13/2020 17:35) Canceled Reason(s): pelvic pain Reason(s): pelvic pain TRANSPORTATION: S IV? IV?(Yes) O2? Oxygen?(No) Ro Urinalysis: (JULI: 12/13/2020 16:40) ( MsgRcvd 12/13/2020 16:56) Final results Test Result Flag Units (Reference) URINALYSIS URINALYSIS SOURCE Clean Catch COLOR yellow (NORMAL: Yello CLARITY clear (NORMAL: Clear SPEC GRAVITY 1.015 (1.001 - 1.030 pH 6.5 (5 - 9) GLUCOSE NORM (NORMAL: Negat BILIRUBIN NEG (NORMAL: Negat KETONE N EG (NORMAL: Negat PROTEIN NEG (NORMAL: Negat NITRITE NEG (NORMAL: Negat BLOOD 50 A (NORMAL: Negat LEUK EST 25 (NORMAL: Negat UROBILINOGEN NOR (less than 1.0 MICROSCOPIC See Below WBC 1 - 3 (NORMAL: NONE RBC 3 - 5 (NORMAL: NONE EPITHELIAL MODERATE A (NORMAL: NONE BACTERIA Trace (NORMAL: NONE. 5 Clinical Report - Physicians/Mid Levels [facility] Emergency Department [address] [place] [address] Phone #: ext- [phone] 12/13/2020 16:23 Patient: ELGIN KOO Sex: F : 1980 Age: 40yPROGRESS AND PROCEDURESCourse of Care: 17:16 12/13/20. Right pelvic pain appears to be ongoing for over 3 months. Multipleallergies but she states she hasn't taken anything for pain. Ultrasound done 11/04 shows enlarged uteruswith left renal cyst. normal bilateral ovarian cysts 17:44 12/13/20. Records from [facility] indicate she never had hysterectomy, and in 2013 she had hydrosalphinx with laparoscopy where bilateral salpinectomy was done. No signs of leukocytosis. No signs of urinary tract infection. Old ED records ordered. Patient has had multiple ED visits. Disposition: Discharged. Condition: stable.CLINICAL IMPRESSION Chronic right lower quadrant abdominal pain.INSTRUCTIONS Warnings: Further evaluation is necessary. GENERAL WARNINGS: Return or contact your physician immediately if your condition worsens or changes unexpectedly, if not improving as expected, or if other problems arise. Follow-up: Follow up with your healthcare provider Wednesday in three days if not well. Call for an appointment. Understanding of the discharge instructions verbalized by patient.(Electronically signed by Balaji Garcia 12/13/2020 19:47) Name Value Range Interpretation Code Description Data Rhonda rce(s) Supporting Document(s) ID Date Data Source [id number] 12/13/2020 05:56:00 PM EDT [facility] Name Value Range Interpretation Code Description Data Rhonda rce(s) Supporting Document(s) BASIC METABOLIC PANEL [facility] BASIC METABOLIC PANEL Sodium [Moles/volume] in Serum or Plasma 138 mEq/L 134 - 153 [facility] Potassium [Moles/volume] in Serum or Plasma 4.0 mEq/L 3.6 - 5.0 [facility] Chloride [Moles/volume] in Serum or Plasma 105 mEq/L 98 - 107 [facility] Carbon dioxide, total [Moles/volume] in Serum or Plasma 25 MEQ/L 22 - 30 [facility] Glucose [Mass/volume] in Serum or Plasma 104 MG/DL 70 - 99 H [facility] BUN 8 MG/DL 7 - 21 [facility] Creatinine [Mass/volume] in Serum or Plasma 0.7 MG/DL 0.7 - 1.5 [facility] BUN/CREAT 11 8 - 27 [facility] Calcium [Mass/volume] in Serum or Plasma 9.0 MG/DL 8.4 - 10.2 [facility] Anion gap 3 in Serum or Plasma 8.0 mmol/L 8.0 - 16.0 [facility] AGE 40 yrs [facility] al AFR AMER GFR >60 mL/min [facility] Ho spital NON-AA GFR >60 mL/min [facility] ital Male GFR Inter prentation 20-49 yrs >60 mL/min Normal 50-59 yrs >56 mL/min Normal 60-69 yrs >49 mL/min Normal 70-79yrs >42 mL/min Normal 80 and above >35 mL/min Normal Female GFR Interpretation 20-39 yrs >60 mL/min Normal 40-49 yrs >58 mL/min Normal 50-59 yrs >51 mL/min Normal 60-69 yrs >45 mL/min Normal 70-79 yrs >39 mL/min Normal 80 and above >32 mL/min Normal ID Date Data Source [id number] 12/13/2020 05:38:00 PM EDT [facility] Name Value Range Interpretation Code Description Data Rhonda rce(s) Supporting Document(s) CBC W/AUTOMATED DIFF [facility] COMPLETE BLOOD COUNT Leukocytes [#/volume] in Blood by Automated count 5.2 10^3/uL 4.2 - 1 1.0 [facility] Erythrocytes [#/volume] in Blood by Automated count 4.30 10^6/uL 4. 20 - 5.40 [facility] Hemoglobin [Mass/volume] in Blood 13.6 g/dL 12.0 - 16.0 [facility] Hematocrit [Volume Fraction] of Blood by Automated count 37.9 % 3 7.0 - 47.0 [facility] Erythrocyte mean corpuscular volume [Entitic volume] by Auto mated count 88.1 fL 81.0 - 101 [facility] Erythrocyte mean corpuscular hemoglobin [Entitic mass] by Automated count 31.6 pg 27.0 - 34.0 [facility] Erythrocyte mean corpuscular hemoglobin concentration [Mass/volume] by Automated count 35.9 g/dL 31.0 - 36.0 [facility] Erythrocyte distribution width [Ratio] by Automated count 13.2 % 11.5 - 14.5 [facility] Platelets [#/volume] in Blood by Automated count 187 10^3/uL 150 - 45 0 [facility] Platelet mean volume [Entitic volume] in Blood by Automated count 9.4 fL 7.4 - 10.4 [facility] Neutrophils/100 leukocytes in Blood by Automated count 57.6 % 37. 0 - 80.0 [facility] Lymphocytes/100 leukocytes in Blood by Manual count 33.8 % 25.0 - 40.0 [facility] Monocytes/100 leukocytes in Blood by Automated count 6.2 % 3.0 - 8.0 [facility] Eosinophils/100 leukocytes in Blood by Automated count 1.6 % 0.0 - 7.0 [facility] Basophils/100 leukocytes in Blood by Automated count 0.6 % 0.0 - 2.5 [facility] %IG 0.2 % 0.0 - 0.0 [facility] %NRBC 0.0 % 0.0 - 0.0 [facility] Neutrophils [#/volume] in Blood by Automated count 2.97 10^3/uL 2.00 - 6.90 [facility] Lymphocytes [#/volume] in Blood by Automated count 1.74 10^3/uL 0.60 - 3.40 [facility] Monocytes [#/volume] in Blood by Automated count 0.32 10^3/uL 0.00 - 0.90 [facility] Eosinophils [#/volume] in Blood by Automated count 0.08 10^3/uL 0.00 - 0.70 [facility] Basophils [#/volume] in Blood by Automated count 0.03 10^3/uL 0.00 - 0.20 [facility] #IG 0.01 10^3/uL 0.00 - 0.10 [facility] ospital #NRBC 0.00 10^3/uL 0.00 - 0.00 [facility] ospital MANUAL DIFF NOT INDICATED [facility] RBC MORPH NOT INDICATED [facility] spital ID Date Data Source [id number] 12/13/2020 06:04:00 PM EDT [facility] Name Value Range Interpretation Code Description Data Rhonda rce(s) Supporting Document(s) DRUG SCREEN URINE [facility] URINE DRUG SCREEN Amphetamine [Presence] in Urine by Screen method NEGATIVE NORMAL: N EGATIVE [facility] BARBITURATES NEGATIVE NORMAL: NEGATIVE [facility] BENZO NEGATIVE NORMAL: NEGATIVE [facility] COCAINE NEGATIVE NORMAL: NEGATIVE [facility] Tetrahydrocannabinol [Presence] in Urine NEGATIVE NORMAL: NEGATIVE [facility] OPIATES NEGATIVE NORMAL: NEGATIVE [facility] Phencyclidine [Presence] in Urine by Screen method NEGATIVE NOR MAL: NEGATIVE [facility] \\BLDo\\URINE DRUG SCR EEN INTERPRETATION\\BLDx\\ THE CUTOFFF LEVELS FOR DETECTION ARE FOLLOWS: AMPHETAMINES 1000 ng/ml BARBITUARATES 200 ng/ml BENZODIAZEPINES 100 ng/ml THC 50 ng/ml PHENCYCLIDINE 25 ng/ml OPIATES 300 ng/ml COCAINE 300 ng/ml ALL POSITIVES ARE CONSIDERED PRESUMPTIVE POSITIVE CONFIRMATION WILL BE PERFORMED AT PHYSICIAN REQUEST. ID Date Data Source [id number] 12/13/2020 05:38:00 PM EDT [facility] Name Value Range Interpretation Code Description Data Rhonda rce(s) Supporting Document(s) HCG URINE QUAL NEGATIVE NORMAL: NEGATIVE [facility] HCG URINE QL REENTER NEGATIVE NORMAL: NEGATIVE [facility] { KIT LOT # [id number] ){ KIT EXP DATE 05-25-22 ){ PROCEDURAL CONTROL VALID ) ID Date Data Source [id number] 12/13/2020 04:56:00 PM EDT [facility] Name Value Range Interpretation Code Description Data Rhonda rce(s) Supporting Document(s) [facility] S[facility] Clean Catch [facility] ital COLOR yellow NORMAL: Yellow [facility] H ospital CLARITY clear NORMAL: Clear [facility] sp[facility] Specific gravity of Urine by Test strip 1.015 1.001 - 1.030 [facility] pH 6.5 5 - 9 [facility] Glucose [Mass/volume] in Urine by Test strip NORM NORMAL: Negat [facility] Bilirubin.total [Presence] in Urine by Test strip NEG NORMAL: Negative [facility] Ketones [Presence] in Urine by Test strip NEG NORMAL: Negative [facility] Protein [Mass/volume] in Urine by Test strip NEG NORMAL: Negat [facility] Nitrite [Presence] in Urine by Test strip NEG NORMAL: Negative [facility] BLOOD 50 NORMAL: Negative [facility] Leukocyte esterase [Presence] in Urine by Test strip 25 LINDA L: Negative [facility] Urobilinogen [Mass/volume] in Urine by Test strip NOR less emily n 1.0 mg/dL [facility] MICROSCOPIC See Below [facility] ital WBC 1 - 3 NORMAL: NONE SEEN [facility] Erythrocytes [#/volume] in Urine by Test strip 3 - 5 NORMAL: NON E SEEN [facility] EPITHELIAL MODERATE NORMAL: NONE SEEN [facility] Bacteria [Presence] in Urine sediment by Light microscopy Tr kosta NORMAL: NONE SEEN [facility] ID Date Data Source Pathology Request For Service 11/08/2020 12:00:00 AM EDT eCW 1 ([facility]) Name Value Range Interpretation Code Description Data Rhonda rce(s) Supporting Document(s) GENITOURINARY eCW1 ([facility]) ID Date Data Source [facility] Pelvis non-OB COMPLETE US 11/04/2020 12:00:00 AM EDT eC W1 ([facility]) Name Value Range Interpretation Code Description Data Rhonda rce(s) Supporting Document(s) [facility] non-OB COMPLETE US eCW1 ([facility]) ID Date Data Source CHLAMYDIA, GC & TRICH AMP 10/09/2020 12:00:00 AM EDT eCW1 ([facility]) Name Value Range Interpretation Code Description Data Rhonda rce(s) Supporting Document(s) NOT DETECTED NEGATIVE Trichomonas vaginalis ( AMP) eCW1 ([facility]) ID Date Data Source PAP REQUEST FOR SERVICE 10/09/2020 12:00:00 AM EDT eCW1 ([facility]) Name Value Range Interpretation Code Description Data Rhonda rce(s) Supporting Document(s) PAP REQUEST FOR SERVICE eCW1 ( [facility]) ID Date Data Source FREE T4 & TSH PANEL 10/09/2020 12:00:00 AM EDT eCW1 ([facility]) Name Value Range Interpretation Code Description Data Rhonda rce(s) Supporting Document(s) 1.680 0.358-3.740 THYROID STIMULATING HORM ONE eCW1 ([facility]) 1.05 0.76-1.46 FREE T4 eCW1 ([facility]) ID Date Data Source CBC - Complete Blood Count 10/09/2020 12:00:00 AM EDT eCW1 ( [facility]) Name Value Range Interpretation Code Description Data Rhonda rce(s) Supporting Document(s) 5.7 4.0-10.0 WHITE BLOOD COUNT eCW1 ([facility]) 14.8 12.0-15.5 HEMOGLOBIN eCW1 ([facility]) 4.89 4.00-5.40 RED BLOOD COUNT eCW1 ([facility]) 43.4 36.0-47.0 HEMATOCRIT eCW1 ([facility]) 30.3 27.0-33.0 MEAN CORPUSCULAR HEMOGLOB IN eCW1 ([facility]) 88.8 80.0-96.0 MEAN CORPUSCULAR VOLUME e CW1 ([facility]) 34.1 32.0-36.5 MEAN CORPUSCULAR HGB CONC eCW1 ([facility]) 12.9 11.5-14.5 RED CELL DISTRIBUTION WID TH eCW1 ([facility]) 193 150-450 PLATELET COUNT, AUTOMATED eCW1 ([facility]) ID Date Data Source URINE CULTURE 09/24/2020 12:00:00 AM EST eCW1 ([facility]) Name Value Range Interpretation Code Description Data Rhonda rce(s) Supporting Document(s) URINE CULTURE eCW1 ([facility]) ID Date Data Source UA URINALYSIS 09/24/2020 12:00:00 AM EST eCW1 ([facility]) Name Value Range Interpretation Code Description Data Rhonda rce(s) Supporting Document(s) UA URINALYSIS eCW1 ([facility]) ID Date Data Source [id number] 09/23/2020 11:34:00 AM EST [facility] Name Value Range Interpretation Code Description Data Rhonda rce(s) Supporting Document(s) SARS-CoV-2 (COVID 19) NEGATIVE - SARS-CoV-2 (COVID19) [facility] This lab was ordered by [facility] a nd reported by [facility]. ID Date Data Source RESPIRATORY PANEL 09/23/2020 12:00:00 AM EST eCW1 ([facility]) Name Value Range Interpretation Code Description Data Rhonda rce(s) Supporting Document(s) This respiratory PCR panel detects Influenza A H1, H3 and RESPIRATORY PANEL eCW1 ([facility]) ID Date Data Source Basic Metabolic Profile (BMP) 07/05/2020 12:00:00 AM EST eCW 1 ([facility]) Name Value Range Interpretation Code Description Data Rhonda rce(s) Supporting Document(s) 0.91 0.55-1.30 CREATININE FOR GFR eCW1 ([facility]) 6 7-18 BLOOD UREA NITROGEN eCW1 (On license of [facility]) 140 70-100 GLUCOSE, FASTING eCW1 ([facility]) > 60.0 >58 GLOMERULAR FILTRATION RATE eCW 1 ([facility]) 107 98-107 CHLORIDE LEVEL eCW1 ([facility]) 138 136-145 SODIUM LEVEL eCW1 ([facility]) 3.9 3.5-5.1 POTASSIUM SERUM eCW1 ([facility]) 28 21-32 CARBON DIOXIDE LEVEL eCW1 ([facility]) 9.2 8.5-10.1 CALCIUM LEVEL eCW1 ([facility]) ID Date Data Source [id number] 07/04/2020 10:00:00 AM EST [facility] Name Value Range Interpretation Code Description Data Rhonda rce(s) Supporting Document(s) SARS coronavirus 2 RNA [facility] This lab was ordered by [facility] and reported by [facility]. Procedure Social History Code Duration Value Status Description Data Source(s ) Smoking 04/07/2021 12:00:00 AM EDT Current Smoker completed Curre nt Smoker eCW1 ([facility]) Smoking 04/07/2021 12:00:00 AM EDT Current Smoker completed Curre nt Smoker eCW1 ([facility]) Smoking 04/07/2021 12:00:00 AM EDT Current Smoker completed Curre nt Smoker eCW1 ([facility]) Smoking 04/07/2021 12:00:00 AM EDT Current Smoker completed Curre nt Smoker eCW1 ([facility]) Smoking 01/28/2021 12:00:00 AM EDT Current Smoker completed Curre nt Smoker eCW1 ([facility]) Smoking 01/28/2021 12:00:00 AM EDT Current Smoker completed Curre nt Smoker eCW1 ([facility]) Smoking 01/28/2021 12:00:00 AM EDT Current Smoker completed Curre nt Smoker eCW1 ([facility]) Smoking 01/28/2021 12:00:00 AM EDT Current Smoker completed Curre nt Smoker eCW1 ([facility]) Smoking 01/28/2021 12:00:00 AM EDT Current Smoker completed Curre nt Smoker eCW1 ([facility]) Smoking 01/28/2021 12:00:00 AM EDT Current Smoker completed Curre nt Smoker eCW1 ([facility]) Smoking 01/02/2021 12:00:00 AM EDT Current Smoker completed Curre nt Smoker eCW1 ([facility]) Smoking 01/02/2021 12:00:00 AM EDT Current Smoker completed Curre nt Smoker eCW1 ([facility]) Smoking 12/16/2020 12:00:00 AM EDT Current Smoker completed Curre nt Smoker eCW1 ([facility]) Smoking 12/16/2020 12:00:00 AM EDT Current Smoker completed Curre nt Smoker eCW1 ([facility]) Smoking 12/16/2020 12:00:00 AM EDT Current Smoker completed Curre nt Smoker eCW1 ([facility]) Smoking 12/16/2020 12:00:00 AM EDT Current Smoker completed Curre nt Smoker eCW1 ([facility]) Smoking 12/16/2020 12:00:00 AM EDT Current Smoker completed Curre nt Smoker eCW1 ([facility]) Smoking 12/16/2020 12:00:00 AM EDT Current Smoker completed Curre nt Smoker eCW1 ([facility]) Smoking 11/13/2020 12:00:00 AM EDT Current Smoker completed Curre nt Smoker eCW1 ([facility]) Smoking 11/13/2020 12:00:00 AM EDT Current Smoker completed Curre nt Smoker eCW1 ([facility]) Smoking 11/13/2020 12:00:00 AM EDT Current Smoker completed Curre nt Smoker eCW1 ([facility]) Smoking 11/13/2020 12:00:00 AM EDT Current Smoker completed Curre nt Smoker eCW1 ([facility]) Smoking 11/13/2020 12:00:00 AM EDT Current Smoker completed Curre nt Smoker eCW1 ([facility]) Smoking 10/07/2020 12:00:00 AM EDT Current Smoker completed Curre nt Smoker eCW1 ([facility]) Smoking 09/24/2020 12:00:00 AM EST Current Smoker completed Curre nt Smoker eCW1 ([facility]) Smoking 09/24/2020 12:00:00 AM EST Current Smoker completed Curre nt Smoker eCW1 ([facility]) Smoking 09/24/2020 12:00:00 AM EST Current Smoker completed Curre nt Smoker eCW1 ([facility]) Smoking 09/24/2020 12:00:00 AM EST Current Smoker completed Curre nt Smoker eCW1 ([facility]) Smoking 09/03/2020 12:00:00 AM EST Current Smoker completed Curre nt Smoker eCW1 ([facility]) Smoking 09/03/2020 12:00:00 AM EST Current Smoker completed Curre nt Smoker eCW1 ([facility]) Smoking 08/23/2020 12:00:00 AM EST Current Smoker completed Curre nt Smoker eCW1 ([facility]) Smoking 08/23/2020 12:00:00 AM EST Current Smoker completed Curre nt Smoker eCW1 ([facility]) Smoking 08/23/2020 12:00:00 AM EST Current Smoker completed Curre nt Smoker eCW1 ([facility]) Smoking 07/11/2020 12:00:00 AM EST Current Smoker completed Curre nt Smoker eCW1 ([facility]) Smoking 07/11/2020 12:00:00 AM EST Current Smoker completed Curre nt Smoker eCW1 ([facility]) Smoking 07/11/2020 12:00:00 AM EST Current Smoker completed Curre nt Smoker eCW1 ([facility]) Smoking 07/05/2020 12:00:00 AM EST Current Smoker completed Curre nt Smoker eCW1 ([facility]) Smoking 07/05/2020 12:00:00 AM EST Current Smoker completed Curre nt Smoker eCW1 ([facility]) Smoking 07/05/2020 12:00:00 AM EST Current Smoker completed Curre nt Smoker eCW1 ([facility]) Smoking 06/28/2020 12:00:00 AM EST Current Smoker completed Curre nt Smoker eCW1 ([facility]) Smoking 05/30/2020 12:00:00 AM EST Current Smoker completed Curre nt Smoker eCW1 ([facility]) Smoking 05/10/2020 12:00:00 AM EDT Current Smoker completed Curre nt Smoker eCW1 ([facility]) Smoking 05/10/2020 12:00:00 AM EDT Current Smoker completed Curre nt Smoker eCW1 ([facility]) Vital Signs ID Date Data Source UNK Name Value Range Interpretation Code Description Data Source(s) Body weight 226 [lb_av] 226 [lb_av] eCW1 ([facility]) Body height 65.5 [in_i] 65.5 [in_i] eCW1 ([facility]) Body mass index (BMI) [Ratio] 37.03 kg/m2 37.03 kg/m2 W1 ([facility]) Systolic blood pressure 122 mm[Hg] 122 mm[Hg] e CW1 ([facility]) Diastolic blood pressure 72 mm[Hg] 72 mm[Hg] eCW1 ([facility]) Body weight 238 [lb_av] 238 [lb_av] eCW1 ([facility]) Body height 65.5 [in_i] 65.5 [in_i] eCW1 ([facility]) Body mass index (BMI) [Ratio] 39 kg/m2 39 kg/ m2 eCW1 ([facility]) Systolic blood pressure 122 mm[Hg] 122 mm[Hg] e CW1 ([facility]) Diastolic blood pressure 78 mm[Hg] 78 mm[Hg] eCW1 ([facility]) Body mass index (BMI) [Ratio] 38.31 kg/m2 38.31 kg/m2 eCW1 ([facility]) Body weight 233.8 [lb_av] 233.8 [lb_av] eCW1 ([facility]) Body height 65.5 [in_i] 65.5 [in_i] eCW1 ([facility]) Heart rate 106 /min 106 /min eCW1 ([facility]) Respiratory rate 18 /min 18 /min eCW1 ([facility]) Body temperature 97.1 [degF] 97.1 [degF] eCW1 ( [facility]) Systolic blood pressure 110 mm[Hg] 110 mm[Hg] e CW1 ([facility]) Diastolic blood pressure 68 mm[Hg] 68 mm[Hg] eCW1 ([facility]) Body weight 237.8 [lb_av] 237.8 [lb_av] eCW1 ([facility]) Body height 65.5 [in_i] 65.5 [in_i] eCW1 ([facility]) Body mass index (BMI) [Ratio] 38.97 kg/m2 38.97 kg/m2 eCW1 ([facility]) Systolic blood pressure 118 mm[Hg] 118 mm[Hg] e CW1 ([facility]) Diastolic blood pressure 78 mm[Hg] 78 mm[Hg] eCW1 ([facility]) Body weight 238.4 [lb_av] 238.4 [lb_av] eCW1 ([facility]) Body height 65.5 [in_i] 65.5 [in_i] eCW1 ([facility]) Body mass index (BMI) [Ratio] 39.06 kg/m2 39.06 kg/m2 eCW1 ([facility]) Systolic blood pressure 118 mm[Hg] 118 mm[Hg] e CW1 ([facility]) Diastolic blood pressure 68 mm[Hg] 68 mm[Hg] eCW1 ([facility]) Heart rate 89 /min 89 /min eCW1 ([facility]) Body weight 239.2 [lb_av] 239.2 [lb_av] eCW1 ([facility]) Body height 65.5 [in_i] 65.5 [in_i] eCW1 ([facility]) Body mass index (BMI) [Ratio] 39.20 kg/m2 39.20 kg/m2 eCW1 ([facility]) Respiratory rate 19 /min 19 /min eCW1 ([facility]) Body temperature 97.0 [degF] 97.0 [degF] eCW1 ( [facility]) Systolic blood pressure 130 mm[Hg] 130 mm[Hg] e CW1 ([facility]) Diastolic blood pressure 50 mm[Hg] 50 mm[Hg] eCW1 ([facility]) Body weight 239.4 [lb_av] 239.4 [lb_av] eCW1 ([facility]) Body height 65.5 [in_i] 65.5 [in_i] eCW1 ([facility]) Body mass index (BMI) [Ratio] 39.23 kg/m2 39.23 kg/m2 eCW1 ([facility]) Systolic blood pressure 112 mm[Hg] 112 mm[Hg] e CW1 ([facility]) Diastolic blood pressure 70 mm[Hg] 70 mm[Hg] eCW1 ([facility]) Systolic blood pressure 110 mm[Hg] 110 mm[Hg] e CW1 ([facility]) Diastolic blood pressure 66 mm[Hg] 66 mm[Hg] eCW1 ([facility]) Body weight 234.2 [lb_av] 234.2 [lb_av] eCW1 ([facility]) Body height 65.5 [in_i] 65.5 [in_i] eCW1 ([facility]) Body mass index (BMI) [Ratio] 38.38 kg/m2 38.38 kg/m2 eCW1 ([facility]) Body weight 241 [lb_av] 241 [lb_av] eCW1 ([facility]) Body height 65.5 [in_i] 65.5 [in_i] eCW1 ([facility]) Body mass index (BMI) [Ratio] 39.49 kg/m2 39.49 kg/m2 W1 ([facility]) Heart rate 90 /min 90 /min eCW1 ([facility]) Respiratory rate 20 /min 20 /min eCW1 ([facility]) Body temperature 96.9 [degF] 96.9 [degF] eCW1 ( [facility]) Systolic blood pressure 118 mm[Hg] 118 mm[Hg] e CW1 ([facility]) Diastolic blood pressure 72 mm[Hg] 72 mm[Hg] eCW1 ([facility]) Body weight 239.8 [lb_av] 239.8 [lb_av] eCW1 ([facility]) Body height 65.5 [in_i] 65.5 [in_i] eCW1 ([facility]) Body mass index (BMI) [Ratio] 39.29 kg/m2 39.29 kg/m2 eCW1 ([facility]) Heart rate 90 /min 90 /min eCW1 ([facility]) Respiratory rate 18 /min 18 /min eCW1 ([facility]) Body temperature 97.2 [degF] 97.2 [degF] eCW1 ( [facility]) Systolic blood pressure 110 mm[Hg] 110 mm[Hg] e CW1 ([facility]) Diastolic blood pressure 66 mm[Hg] 66 mm[Hg] eCW1 ([facility]) Body weight 238 [lb_av] 238 [lb_av] eCW1 ([facility]) Body weight 107.95 kg 107.95 kg eCW1 ([facility]) Body height 65.5 [in_i] 65.5 [in_i] eCW1 ([facility]) Body mass index (BMI) [Ratio] 39 kg/m2 39 kg/ m2 eCW1 ([facility]) Heart rate 85 /min 85 /min eCW1 ([facility]) Respiratory rate 18 /min 18 /min eCW1 ([facility]) Body temperature 97.0 [degF] 97.0 [degF] eCW1 ( [facility]) Systolic blood pressure 102 mm[Hg] 102 mm[Hg] e CW1 ([facility]) Diastolic blood pressure 66 mm[Hg] 66 mm[Hg] eCW1 ([facility]) Systolic blood pressure 128 mm[Hg] 128 mm[Hg] e CW1 ([facility]) Body temperature 97.4 [degF] 97.4 [degF] eCW1 ( [facility]) Body weight 238 [lb_av] 238 [lb_av] eCW1 ([facility]) Body height 65.5 [in_i] 65.5 [in_i] eCW1 ([facility]) Body mass index (BMI) [Ratio] 39.00 kg/m2 39.00 kg/m2 eCW1 ([facility]) Heart rate 91 /min 91 /min eCW1 ([facility]) Respiratory rate 18 /min 18 /min eCW1 ([facility]) Diastolic blood pressure 7 mm[Hg] 7 mm[Hg] eCW1 ([facility]) Body weight 241 [lb_av] 241 [lb_av] eCW1 ([facility]) Body weight 109.32 kg 109.32 kg eCW1 ([facility]) Body height 65.5 [in_i] 65.5 [in_i] eCW1 ([facility]) Body mass index (BMI) [Ratio] 39.49 kg/m2 39.49 kg/m2 eCW1 ([facility]) Heart rate 66 /min 66 /min eCW1 ([facility]) Respiratory rate 18 /min 18 /min eCW1 ([facility]) Body temperature 97.2 [degF] 97.2 [degF] eCW1 ( [facility]) Systolic blood pressure 130 mm[Hg] 130 mm[Hg] e CW1 ([facility]) Diastolic blood pressure 68 mm[Hg] 68 mm[Hg] eCW1 ([facility]) Body temperature 96.4 [degF] 96.4 [degF] eCW1 ( [facility]) Systolic blood pressure 128 mm[Hg] 128 mm[Hg] e CW1 ([facility]) Diastolic blood pressure 70 mm[Hg] 70 mm[Hg] eCW1 ([facility]) Body weight 237 [lb_av] 237 [lb_av] eCW1 ([facility]) Body height 65.5 [in_i] 65.5 [in_i] eCW1 ([facility]) Body mass index (BMI) [Ratio] 38.83 kg/m2 38.83 kg/m2 eCW1 ([facility]) Heart rate 100 /min 100 /min eCW1 ([facility]) Respiratory rate 18 /min 18 /min eCW1 ([facility]) Body weight 240 [lb_av] 240 [lb_av] eCW1 ([facility]) Systolic blood pressure 124 mm[Hg] 124 mm[Hg] e CW1 ([facility]) Diastolic blood pressure 68 mm[Hg] 68 mm[Hg] eCW1 ([facility]) Body weight 108.86 kg 108.86 kg eCW1 ([facility]) Body height 65.5 [in_i] 65.5 [in_i] eCW1 ([facility]) Body mass index (BMI) [Ratio] 39.33 kg/m2 39.33 kg/m2 eCW1 ([facility]) Heart rate 80 /min 80 /min eCW1 ([facility]) Respiratory rate 18 /min 18 /min eCW1 ([facility]) Body temperature 97.9 [degF] 97.9 [degF] eCW1 ( [facility]) Body weight 237 [lb_av] 237 [lb_av] eCW1 ([facility]) Body height 65.5 [in_i] 65.5 [in_i] eCW1 ([facility]) Body mass index (BMI) [Ratio] 38.83 kg/m2 38.83 kg/m2 eCW1 ([facility]) Heart rate 92 /min 92 /min eCW1 ([facility]) Respiratory rate 18 /min 18 /min eCW1 ([facility]) Body temperature 96.7 [degF] 96.7 [degF] eCW1 ( [facility]) Systolic blood pressure 120 mm[Hg] 120 mm[Hg] e CW1 ([facility]) Diastolic blood pressure 78 mm[Hg] 78 mm[Hg] eCW1 ([facility]) Body weight 232.4 [lb_av] 232.4 [lb_av] eCW1 ([facility]) Body height 65.5 [in_i] 65.5 [in_i] eCW1 ([facility]) Body mass index (BMI) [Ratio] 38.08 kg/m2 38.08 kg/m2 eCW1 ([facility]) Heart rate 80 /min 80 /min eCW1 ([facility]) Respiratory rate 17 /min 17 /min eCW1 ([facility]) Body temperature 97.1 [degF] 97.1 [degF] eCW1 ( [facility]) Systolic blood pressure 120 mm[Hg] 120 mm[Hg] e CW1 ([facility]) Diastolic blood pressure 76 mm[Hg] 76 mm[Hg] eCW1 ([facility]) Patient Treatment Plan of Care Planned Activity Planned Date Details Description Data Source (s) Fluconazole 150 MG Oral Tablet [Diflucan] 04/07/2021 12:00:00 AM ED T eCW1 ([facility]) Fluconazole 150 MG Oral Tablet [Diflucan] 04/07/2021 12:00:00 AM ED T eCW1 ([facility]) Fluconazole 150 MG Oral Tablet [Diflucan] 04/07/2021 12:00:00 AM ED T eCW1 ([facility]) Fluconazole 150 MG Oral Tablet [Diflucan] 04/07/2021 12:00:00 AM ED T eCW1 ([facility]) Codeine Phosphate 2 MG/ML / Guaifenesin 20 MG/ML Oral Solution 02/19/2021 12:00:00 AM EDT eCW1 ([facility]) Codeine Phosphate 2 MG/ML / Guaifenesin 20 MG/ML Oral Solution 02/19/2021 12:00:00 AM EDT eCW1 ([facility]) Codeine Phosphate 2 MG/ML / Guaifenesin 20 MG/ML Oral Solution 02/19/2021 12:00:00 AM EDT eCW1 ([facility]) Codeine Phosphate 2 MG/ML / Guaifenesin 20 MG/ML Oral Solution 02/19/2021 12:00:00 AM EDT eCW1 ([facility]) Acetaminophen 325 MG / Hydrocodone Bitartrate 5 MG Ora l Tablet 12/31/2020 12:00:00 AM EDT eCW1 ([facility]) HYDROcodone Bitartrate ER 10 MG 12/31/2020 12:00:00 AM EDT eCW1 ([facility]) Acetaminophen 325 MG / Hydrocodone Bitartrate 5 MG Ora l Tablet 12/31/2020 12:00:00 AM EDT eCW1 ([facility]) HYDROcodone Bitartrate ER 10 MG 12/31/2020 12:00:00 AM EDT eCW1 ([facility]) heparin sodium, porcine 5000 UNT/ML Injectable Solutio n 12/24/2020 12:00:00 AM EDT eCW1 ([facility]) heparin sodium, porcine 5000 UNT/ML Injectable Solutio n 12/24/2020 12:00:00 AM EDT eCW1 ([facility]) heparin sodium, porcine 5000 UNT/ML Injectable Solutio n 12/24/2020 12:00:00 AM EDT eCW1 ([facility]) heparin sodium, porcine 5000 UNT/ML Injectable Solutio n 12/24/2020 12:00:00 AM EDT eCW1 ([facility]) heparin sodium, porcine 5000 UNT/ML Injectable Solutio n 12/24/2020 12:00:00 AM EDT eCW1 ([facility]) Heparin Sodium (Porcine) 5000 unit/mL 12/18/2020 12:00:00 AM EDT eCW1 ([facility]) Heparin Sodium (Porcine) 5000 unit/mL 12/18/2020 12:00:00 AM EDT eCW1 ([facility]) Heparin Sodium (Porcine) 5000 unit/mL 12/18/2020 12:00:00 AM EDT eCW1 ([facility]) Heparin Sodium (Porcine) 5000 unit/mL 12/18/2020 12:00:00 AM EDT eCW1 ([facility]) Heparin Sodium (Porcine) 5000 unit/mL 12/18/2020 12:00:00 AM EDT eCW1 ([facility]) Heparin Sodium (Porcine) 5000 unit/mL 12/18/2020 12:00:00 AM EDT eCW1 ([facility]) Clobetasol Prop Emollient Base 0.05 % 10/09/2020 12:00:00 AM EDT eCW1 ([facility]) Levaquin 750 MG 09/24/2020 12:00:00 AM EST eCW1 ([facility]) Levaquin 750 MG 09/24/2020 12:00:00 AM EST eCW1 ([facility]) Levaquin 750 MG 09/24/2020 12:00:00 AM EST eCW1 ([facility]) Levaquin 750 MG 09/24/2020 12:00:00 AM EST eCW1 ([facility]) May Have - 09/10/2020 12:00:00 AM EST e CW1 ([facility]) benzonatate 100 MG Oral Capsule [Qiana Ivey] 05/30/2020 12: 00:00 AM EST eCW1 ([facility]) meloxicam 7.5 MG Oral Tablet 05/30/2020 12:00:00 AM EST eCW1 ([facility]) atorvastatin 20 MG Oral Tablet 05/14/2020 12:00:00 AM EDT eCW1 ([facility]) atorvastatin 20 MG Oral Tablet 05/14/2020 12:00:00 AM EDT eCW1 ([facility]) atorvastatin 20 MG Oral Tablet 05/14/2020 12:00:00 AM EDT eCW1 ([facility])
--- OUTSIDE RECORDS SUMMARY | 2021-05-16 03:10 | CCD ---
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 If you continue you may have access to information: Regarding HIV / AIDS; Provided by facilities licensed or operated by the [facility] Office of Mental Health; or Provided by the [facility] Office for People With Developmental Disabilities. If such information is present, then the following [facility] mandated warning applies: This information has [...] law may result in a fine or fdc sentence or both. A general authorization for the release of medical or other information is NOT sufficient authorization for further disc losure. Allergies and Adverse Reactions Type Description Substance Reaction Status Data Source(s ) Drug allergy pyridium pyridium [facility] Drug allergy penicillin penicillin [facility] Drug allergy bactrim bactrim [facility] Drug allergy Drug allergy [id number] [facility] Propensity to adverse reactions SUDAFED PE COLD & COUGH SUDAFED PE COLD & COUGH [facility] Drug allergy AMOXICILLIN AMOXICILLIN [facility] Family History Family Member Name Family Member Gender Family Member Status Date o f Status Description Data Source(s) Unknown Male Problem [facility] ([facility]) Encounters Encounter Providers Location Date Indications Data Source(s ) Unknown [address] [facility] [id number] 04/29/2021 12:00:00 AM EDT eCW1 ([facility]) Unknown [address] [facility] [address] 04/16/2021 12:00:00 AM EDT [facility]) Outpatient [address] [facility] [place] [address] 04/07/2021 12:00:00 AM EDT eCW1 ([facility]) Unknown [address] [facility] [place] [address] 04/07/2021 12:00:00 AM EDT eCW1 ([facility]) [facility] 03/12/2021 12:00:00 AM EDT [employer] ([facility]) Unknown [address] [facility] [place] [address] 03/12/2021 12:00:00 AM EDT eCW1 ([facility]) Unknown [address] [facility] [place] [address] 02/28/2021 12:00:00 AM EDT eCW1 ([facility]) Emergency Attender: Balaji Garcia MDConsultant: Fatimah MESA 02/18/2021 02:36:00 PM EDT - 02/18/2021 04:45:00 PM EDT [facility] Patient discharged. Unknown [address] [facility] [place] [address] 02/18/2021 12:00:00 AM EDT eCW1 ([facility]) Emergency Attender: JACQUI EDUARDOConsultant: Fatimah MESA 02/17/2021 08:20:00 PM EDT - 02/17/2021 10:10:00 PM EDT [facility] Patient discharged. Emergency Attender: LINDA BLACK MDConsultant: Fatimah MESA 02/10/2021 11:55:00 PM EDT - 02/11/2021 02:57:00 AM EDT [facility] Patient discharged. 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 [address] [place] [address] 01/07/2021 12:00:00 AM EDT eCW1 ([facility]) Outpatient [address] [facility] [place] [address] 01/02/2021 12:00:00 AM EDT eCW1 ([facility]) Telehealth Physchotherapy 30 Minutes with Patient [facility] 01/02/2021 12:00:00 AM EDT [employer] ([facility]) Unknown [address] [facility] [place] [address] 12/31/2020 12:00:00 AM EDT eCW1 ([facility]) Unknown [address] [facility] [place] [address] 12/31/2020 12:00:00 AM EDT eCW1 ([facility]) Unknown [address] [facility] [id number] 12/24/2020 12:00:00 AM EDT eCW1 ([facility]) Unknown [address] [facility] [address] 12/24/2020 12:00:00 AM EDT eCW1 ([facility]) Unknown [address] [facility] [address] 12/20/2020 12:00:00 AM EDT eCW1 ([facility]) (WC 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 Telehealth Physchotherapy 30 Minutes with Patient [facility] 11/18/2020 12:00:00 AM EDT [employer] ([facility]) Unknown [address] [facility] [id number] 11/18/2020 12:00:00 AM EDT eCW1 ([facility]) Unknown [address] [facility] [address] 11/14/2020 12:00:00 AM EDT eCW1 ([facility]) Outpatient [address] [facility] [address] 11/13/2020 12:00:00 AM EDT eCW1 ([facility]) Outpatient [address] [facility] [address] 11/11/2020 12:00:00 AM EDT eCW1 ([facility]) (WC PROC) [facility] Procedure [address] [place] [address] 11/08/2020 12:00:00 AM EDT eCW1 ([facility]) Outpatient [address] [facility] [place] [address] 10/09/2020 12:00:00 AM EDT eCW1 ([facility]) Outpatient [address] [facility] [place] [address] 09/24/2020 12:00:00 AM EST eCW1 ([facility]) Unknown [address] [facility] [place] [address] 09/24/2020 12:00:00 AM EST eCW1 ([facility]) Outpatient [address] [facility] [place] [address] 09/23/2020 12:00:00 AM EST eCW1 ([facility]) Unknown [address] [facility] [address] [address] 09/20/2020 12:00:00 AM EST eCW1 ([facility]) Unknown [address] [facility] [place] [address] 09/10/2020 12:00:00 AM EST eCW1 ([facility]) (BC FU) Breast Center Follow Up [address] [place] [address] 08/23/2020 12:00:00 AM EST eCW1 ([facility]) Outpatient [address] [facility] [place] [address] 08/20/2020 12:00:00 AM EST eCW1 ([facility]) Unknown [address] [facility] [place] [address] 08/12/2020 12:00:00 AM EST eCW1 ([facility]) Unknown [address] [facility] [place] [address] 08/05/2020 12:00:00 AM EST eCW1 ([facility]) (BC FU) Breast Center Follow Up [facility] [place] [address] 07/11/2020 12:00:00 AM EST eCW1 ([facility]) Unknown [address] [facility] [place] [address] 07/10/2020 12:00:00 AM EST eCW1 ([facility]) Unknown [address] [facility] [place] [address] 07/10/2020 12:00:00 AM EST eCW1 ([facility]) Unknown [address] [facility] [place] [address] 07/05/2020 12:00:00 AM EST eCW1 ([facility]) Outpatient [address] [facility] [place] [address] 07/05/2020 12:00:00 AM EST eCW1 ([facility]) Unknown [address] [facility] [place] [address] 07/01/2020 12:00:00 AM EST eCW1 ([facility]) Outpatient [address] [facility] [place] [address] 06/28/2020 12:00:00 AM EST eCW1 ([facility]) Outpatient [address] [facility] [place] [address] 05/30/2020 12:00:00 AM EST eCW1 ([facility]) Unknown [address] [facility] [place] [address] 05/28/2020 12:00:00 AM EST eCW1 ([facility]) Outpatient [address] [facility] [place] [address] 05/10/2020 12:00:00 AM EDT eCW1 ([facility]) Unknown [address] [facility] [place] [address] 04/29/2020 12:00:00 AM EDT eCW1 ([facility]) Unknown [address] [facility] [place] [address] 04/29/2020 12:00:00 AM EDT eCW1 ([facility]) Immunizations Vaccine Date Status Description [...] 1.0 {tablet} active Diflucan 150 MG eCW1 ([facility]) Fluconazole 150 MG Oral Tablet [Diflucan] Diflucan 150 MG Di flucan 150 MG 04/07/2021 12:00:00 AM EDT 1.0 {tablet} active Diflucan 150 MG eCW1 ([facility]) Fluconazole 150 MG Oral Tablet [Diflucan] Diflucan 150 MG Di flucan 150 MG 04/07/2021 12:00:00 AM EDT 1.0 {tablet} active Diflucan 150 MG eCW1 ([facility]) Fluconazole 150 MG Oral Tablet [Diflucan] Diflucan 150 MG Di flucan 150 MG 04/07/2021 12:00:00 AM EDT 1.0 {tablet} active Diflucan 150 MG eCW1 ([facility]) 20 mg 03/17/2021 12:00:00 AM EDT tablet [...] active guaiFENesin AC 10 0-10 MG/5ML eCW1 ([facility]) Codeine Phosphate 2 MG/ML / Guaifenesin 20 MG/ML Oral Solution guaiFENesin AC 100-10 MG/5ML guaiFENesin AC 100-10 MG/5ML 02/19/2021 12:00:00 AM EDT 10.0 {ml_as_needed} active eCW1 ([facility]) Codeine Phosphate 2 MG/ML / Guaifenesin 20 MG/ML Oral Solution guaiFENesin AC 100-10 MG/5ML guaiFENesin AC 100-10 MG/5ML 02/19/2021 12:00:00 AM EDT 10.0 {ml_as_needed} active guaiFENesin AC 10 0-10 MG/5ML eCW1 ([facility]) Codeine Phosphate 2 MG/ML / Guaifenesin 20 MG/ML Oral Solution guaiFENesin AC 100-10 MG/5ML guaiFENesin AC 100-10 MG/5ML 02/19/2021 12:00:00 AM EDT 10.0 {ml_as_needed} suspended guaiFENesin AC 100-10 MG/5ML eCW1 ([facility]) Codeine Phosphate 2 MG/ML / Guaifenesin 20 MG/ML Oral Solution guaiFENesin AC 100-10 MG/5ML guaiFENesin AC 100-10 MG/5ML 02/19/2021 12:00:00 AM EDT 10.0 {ml_as_needed} suspended guaiFENesin AC 100-10 MG/5ML eCW1 ([facility]) Codeine Phosphate 2 MG/ML / Guaifenesin 20 MG/ML Oral Solution guaiFENesin AC 100-10 MG/5ML guaiFENesin AC 100-10 MG/5ML 02/19/2021 12:00:00 AM EDT 10.0 {ml_as_needed} suspended guaiFENesin AC 100-10 MG/5ML eCW1 ([facility]) Codeine Phosphate 2 MG/ML / Guaifenesin 20 MG/ML Oral Solution guaiFENesin AC 100-10 MG/5ML guaiFENesin AC 100-10 MG/5ML 02/19/2021 12:00:00 AM EDT 10.0 {ml_as_needed} suspended guaiFENesin AC 100-10 MG/5ML eCW1 ([facility]) Codeine Phosphate 2 MG/ML / Guaifenesin 20 MG/ML Oral Solution guaiFENesin AC 100-10 MG/5ML guaiFENesin AC 100-10 MG/5ML 02/19/2021 12:00:00 AM EDT 10.0 {ml_as_needed} active guaiFENesin AC 10 0-10 MG/5ML eCW1 ([facility]) 4 mg 02/18/2021 12:00:00 AM EDT tablets,dose [...] active HYDROcodone Bitartrate ER 10 MG eCW1 ([facility]) Acetaminophen 325 MG / Hydrocodone Bee trate 5 MG Oral Tablet HYDROcodone- Acetaminophen 5-325 MG HYDROcodone-Acetaminophen 5-325 MG 12/31/2020 12:00:00 AM EDT 1.0 {tablet_as_needed} suspended HYDROcodone-Acetaminophen 5- 325 MG eCW1 ([facility]) Acetaminophen 325 MG / Hydrocodone Bee trate 5 MG Oral Tablet HYDROcodone- Acetaminophen 5-325 MG HYDROcodone-Acetaminophen 5-325 MG 12/31/2020 12:00:00 AM EDT 1.0 {tablet_as_needed} active HYDROcodone-Acetaminophen 5-325 MG eCW1 ([facility]) Acetaminophen 325 MG / Hydrocodone Bee trate 5 MG Oral Tablet HYDROcodone- Acetaminophen 5-325 MG HYDROcodone-Acetaminophen 5-325 MG 12/31/2020 12:00:00 AM EDT 1.0 {tablet_as_needed} active HYDROcodone-Acetaminophen 5-325 MG eCW1 ([facility]) HYDROcodone Bitartrate ER 10 MG HYDROcodone Bitartrate ER 10 MG 12/31/2020 12:00:00 AM EDT 1.0 {capsule} suspended HYDROcodone Bitartrate ER 10 MG eCW1 ([facility]) Acetaminophen 325 MG / Hydrocodone Bee trate 5 MG Oral Tablet HYDROcodone- Acetaminophen 5-325 MG HYDROcodone-Acetaminophen 5-325 MG 12/31/2020 12:00:00 AM EDT 1.0 {tablet_as_needed} suspended HYDROcodone-Acetaminophen 5- 325 MG eCW1 ([facility]) HYDROcodone Bitartrate ER 10 MG HYDROcodone Bitartrate ER 10 MG 12/31/2020 12:00:00 AM EDT 1.0 {capsule} active HYDROcodone Bitartrate ER 10 MG eCW1 ([facility]) Acetaminophen 325 MG / Hydrocodone Bee trate 5 MG Oral Tablet HYDROcodone- Acetaminophen 5-325 MG HYDROcodone-Acetaminophen 5-325 MG 12/31/2020 12:00:00 AM EDT 1.0 {tablet_as_needed} active HYDROcodone-Acetaminophen 5-325 MG eCW1 ([facility]) HYDROcodone Bitartrate ER 10 MG HYDROcodone Bitartrate ER 10 MG 12/31/2020 12:00:00 AM EDT 1.0 {capsule} active HYDROcodone Bitartrate ER 10 MG eCW1 ([facility]) HYDROcodone Bitartrate ER 10 MG HYDROcodone Bitartrate ER 10 MG 12/31/2020 12:00:00 AM EDT 1.0 {capsule} suspended HYDROcodone Bitartrate ER 10 MG eCW1 ([facility]) Acetaminophen 325 MG / Hydrocodone Bee trate 5 MG Oral Tablet HYDROcodone- Acetaminophen 5-325 MG HYDROcodone-Acetaminophen 5-325 MG 12/31/2020 12:00:00 AM EDT 1.0 {tablet_as_needed} active HYDROcodone-Acetaminophen 5-325 MG eCW1 ([facility]) HYDROcodone Bitartrate ER 10 MG HYDROcodone Bitartrate ER 10 MG 12/31/2020 12:00:00 AM EDT 1.0 {capsule} active HYDROcodone Bitartrate ER 10 MG eCW1 ([facility]) HYDROcodone Bitartrate ER 10 MG HYDROcodone Bitartrate ER 10 MG 12/31/2020 12:00:00 AM EDT 1.0 {capsule} suspended HYDROcodone Bitartrate ER 10 MG eCW1 ([facility]) Acetaminophen 325 MG / Hydrocodone Bee trate 5 MG Oral Tablet HYDROcodone- Acetaminophen 5-325 MG HYDROcodone-Acetaminophen 5-325 MG 12/31/2020 12:00:00 AM EDT 1.0 {tablet_as_needed} active HYDROcodone-Acetaminophen 5-325 MG eCW1 ([facility]) Acetaminophen 325 MG / Hydrocodone Bee trate 5 MG Oral Tablet HYDROcodone- Acetaminophen 5-325 MG HYDROcodone-Acetaminophen 5-325 MG 12/31/2020 12:00:00 AM EDT 1.0 {tablet_as_needed} active HYDROcodone-Acetaminophen 5-325 MG eCW1 ([facility]) HYDROcodone Bitartrate ER 10 MG HYDROcodone Bitartrate ER 10 MG 12/31/2020 12:00:00 AM EDT 1.0 {capsule} active HYDROcodone Bitartrate ER 10 MG eCW1 ([facility]) HYDROcodone Bitartrate ER 10 MG HYDROcodone Bitartrate ER 10 MG 12/31/2020 12:00:00 AM EDT 1.0 {capsule} active HYDROcodone Bitartrate ER 10 MG eCW1 ([facility]) Acetaminophen 325 MG / Hydrocodone Bee trate 5 MG Oral Tablet HYDROcodone- Acetaminophen 5-325 MG HYDROcodone-Acetaminophen 5-325 MG 12/31/2020 12:00:00 AM EDT 1.0 {tablet_as_needed} active eCW1 ([facility]) Acetaminophen 325 MG / Hydrocodone Bee trate 5 MG Oral Tablet HYDROcodone- Acetaminophen 5-325 MG HYDROcodone-Acetaminophen 5-325 MG 12/31/2020 12:00:00 AM EDT 1.0 {tablet_as_needed} suspended HYDROcodone-Acetaminophen 5- 325 MG eCW1 ([facility]) Acetaminophen 325 MG / Hydrocodone Bee trate 5 MG Oral Tablet HYDROcodone- Acetaminophen 5-325 MG HYDROcodone-Acetaminophen 5-325 MG 12/31/2020 12:00:00 AM EDT 1.0 {tablet_as_needed} active HYDROcodone-Acetaminophen 5-325 MG eCW1 ([facility]) Acetaminophen 325 MG / Hydrocodone Bee trate 5 MG Oral Tablet HYDROcodone- Acetaminophen 5-325 MG HYDROcodone-Acetaminophen 5-325 MG 12/31/2020 12:00:00 AM EDT 1.0 {tablet_as_needed} suspended HYDROcodone-Acetaminophen 5- 325 MG eCW1 ([facility]) HYDROcodone Bitartrate ER 10 MG HYDROcodone Bitartrate ER 10 MG 12/31/2020 12:00:00 AM EDT 1.0 {capsule} active HYDROcodone Bitartrate ER 10 MG eCW1 ([facility]) HYDROcodone Bitartrate ER 10 MG HYDROcodone Bitartrate ER 10 MG 12/31/2020 12:00:00 AM EDT 1.0 {capsule} active eCW1 ([facility]) HYDROcodone Bitartrate ER 10 MG HYDROcodone Bitartrate ER 10 MG 12/31/2020 12:00:00 AM EDT 1.0 {capsule} suspended HYDROcodone Bitartrate ER 10 MG eCW1 ([facility]) HYDROcodone Bitartrate ER 10 MG HYDROcodone Bitartrate ER 10 MG 12/31/2020 12:00:00 AM EDT 1.0 {capsule} active HYDROcodone Bitartrate ER 10 MG eCW1 ([facility]) Acetaminophen 325 MG / Hydrocodone Bee trate 5 MG Oral Tablet HYDROcodone- Acetaminophen 5-325 MG HYDROcodone-Acetaminophen 5-325 MG 12/31/2020 12:00:00 AM EDT 1.0 {tablet_as_needed} active HYDROcodone-Acetaminophen 5-325 MG eCW1 ([facility]) Acetaminophen 325 MG / Hydrocodone Bitartrate 5 [...] 1.0 {tablet_as_needed} active HYDROcodone-Acetaminophen 5-325 MG eCW1 ([facility]) HYDROcodone Bitartrate ER 10 MG HYDROcodone Bitartrate ER 10 MG 12/31/2020 12:00:00 AM EDT 1.0 {capsule} active HYDROcodone Bitartrate ER 10 MG eCW1 ([facility]) 100 mg 12/29/2020 12:00:00 AM EDT capsule [...] active Heparin Sodium (Porcine) 5000 UNIT/ML eCW1 ([facility]) heparin sodium, porcine 5000 UNT/ML Inje ctable Solution Heparin Sodium (Porcine) 5000 UNIT/ML Heparin Sodium (Porcine) 5000 UNIT/ML 12/24/2020 12:00:00 AM EDT 1.0 {ml} suspended Heparin Sodiu m (Porcine) 5000 UNIT/ML eCW1 ([facility]) heparin sodium, porcine 5000 UNT/ML Inje ctable Solution Heparin Sodium (Porcine) 5000 UNIT/ML Heparin Sodium (Porcine) 5000 UNIT/ML 12/24/2020 12:00:00 AM EDT 1.0 {ml} active Heparin Sodium (Porcine) 5000 UNIT/ML eCW1 ([facility]) heparin sodium, porcine 5000 UNT/ML Inje ctable Solution Heparin Sodium (Porcine) 5000 UNIT/ML Heparin Sodium (Porcine) 5000 UNIT/ML 12/24/2020 12:00:00 AM EDT 1.0 {ml} suspended Heparin Sodiu m (Porcine) 5000 UNIT/ML eCW1 ([facility]) heparin sodium, porcine 5000 UNT/ML Inje ctable Solution Heparin Sodium (Porcine) 5000 UNIT/ML Heparin Sodium (Porcine) 5000 UNIT/ML 12/24/2020 12:00:00 AM EDT 1.0 {ml} active Heparin Sodium (Porcine) 5000 UNIT/ML eCW1 ([facility]) heparin sodium, porcine 5000 UNT/ML Inje ctable Solution Heparin Sodium (Porcine) 5000 UNIT/ML Heparin Sodium (Porcine) 5000 UNIT/ML 12/24/2020 12:00:00 AM EDT 1.0 {ml} suspended Heparin Sodiu m (Porcine) 5000 UNIT/ML eCW1 ([facility]) heparin sodium, porcine 5000 UNT/ML Inje ctable Solution Heparin Sodium (Porcine) 5000 UNIT/ML Heparin Sodium (Porcine) 5000 UNIT/ML 12/24/2020 12:00:00 AM EDT 1.0 {ml} active Heparin Sodium (Porcine) 5000 UNIT/ML eCW1 ([facility]) heparin sodium, porcine 5000 UNT/ML Inje ctable Solution Heparin Sodium (Porcine) 5000 UNIT/ML Heparin Sodium (Porcine) 5000 UNIT/ML 12/24/2020 12:00:00 AM EDT 1.0 {ml} active Heparin Sodium (Porcine) 5000 UNIT/ML eCW1 ([facility]) heparin sodium, porcine 5000 UNT/ML Inje ctable Solution Heparin Sodium (Porcine) 5000 UNIT/ML Heparin Sodium (Porcine) 5000 UNIT/ML 12/24/2020 12:00:00 AM EDT 1.0 {ml} active Heparin Sodium (Porcine) 5000 UNIT/ML eCW1 ([facility]) heparin sodium, porcine 5000 UNT/ML Inje ctable Solution Heparin Sodium (Porcine) 5000 UNIT/ML Heparin Sodium (Porcine) 5000 UNIT/ML 12/24/2020 12:00:00 AM EDT 1.0 {ml} active Heparin Sodium (Porcine) 5000 UNIT/ML eCW1 ([facility]) heparin sodium, porcine 5000 UNT/ML Inje ctable Solution Heparin Sodium (Porcine) 5000 UNIT/ML Heparin Sodium (Porcine) 5000 UNIT/ML 12/24/2020 12:00:00 AM EDT 1.0 {ml} active eCW1 ([facility]) heparin sodium, porcine 5000 UNT/ML Inje ctable Solution Heparin Sodium (Porcine) 5000 UNIT/ML Heparin Sodium (Porcine) 5000 UNIT/ML 12/24/2020 12:00:00 AM EDT 1.0 {ml} active Heparin Sodium (Porcine) 5000 UNIT/ML eCW1 ([facility]) heparin sodium, porcine 5000 UNT/ML Inje ctable Solution Heparin Sodium (Porcine) 5000 UNIT/ML Heparin Sodium (Porcine) 5000 UNIT/ML 12/24/2020 12:00:00 AM EDT 1.0 {ml} active Heparin Sodium (Porcine) 5000 UNIT/ML eCW1 ([facility]) heparin sodium, porcine 5000 UNT/ML Inje ctable Solution Heparin Sodium (Porcine) 5000 UNIT/ML Heparin Sodium (Porcine) 5000 UNIT/ML 12/24/2020 12:00:00 AM EDT 1.0 {ml} active Heparin Sodium (Porcine) 5000 UNIT/ML eCW1 ([facility]) heparin sodium, porcine 5000 UNT/ML Inje ctable Solution Heparin Sodium (Porcine) 5000 UNIT/ML Heparin Sodium (Porcine) 5000 UNIT/ML 12/24/2020 12:00:00 AM EDT 1.0 {ml} suspended Heparin Sodiu m (Porcine) 5000 UNIT/ML eCW1 ([facility]) heparin sodium, porcine 5000 UNT/ML Inje ctable Solution Heparin Sodium (Porcine) 5000 UNIT/ML Heparin Sodium (Porcine) 5000 UNIT/ML 12/24/2020 12:00:00 AM EDT 1.0 {ml} active Heparin Sodium (Porcine) 5000 UNIT/ML eCW1 ([facility]) heparin sodium, porcine 5000 UNT/ML Inje ctable Solution Heparin Sodium (Porcine) 5000 UNIT/ML Heparin Sodium (Porcine) 5000 UNIT/ML 12/24/2020 12:00:00 AM EDT 1.0 {ml} active Heparin Sodium (Porcine) 5000 UNIT/ML eCW1 ([facility]) Heparin Sodium (Porcine) 5000 unit/mL [facility] 12/18/2020 12:00:00 AM EDT active Heparin Sodium (Porcine) 5000 un it/mL eCW1 ([facility]) Heparin Sodium (Porcine) 5000 unit/mL [facility] 12/18/2020 12:00:00 AM EDT active eCW1 ([facility]) Heparin Sodium (Porcine) 5000 unit/mL [facility] 12/18/2020 12:00:00 AM EDT suspended Heparin Sodium (Porcine) 5000 un it/mL eCW1 ([facility]) Heparin Sodium (Porcine) 5000 unit/mL [facility] 12/18/2020 12:00:00 AM EDT active Heparin Sodium (Porcine) 5000 un it/mL eCW1 ([facility]) Heparin Sodium (Porcine) 5000 unit/mL [facility] 12/18/2020 12:00:00 AM EDT suspended Heparin Sodium (Porcine) 5000 un it/mL eCW1 ([facility]) Heparin Sodium (Porcine) 5000 unit/mL [facility] 12/18/2020 12:00:00 AM EDT active Heparin Sodium (Porcine) 5000 un it/mL eCW1 ([facility]) Heparin Sodium (Porcine) 5000 unit/mL [facility] 12/18/2020 12:00:00 AM EDT active Heparin Sodium (Porcine) 5000 un it/mL eCW1 ([facility]) Heparin Sodium (Porcine) 5000 unit/mL K 12/18/2020 12:00:00 AM EDT active Heparin Sodium (Porcine) 5000 un it/mL eCW1 ([facility]) Heparin Sodium (Porcine) 5000 unit/mL K 12/18/2020 12:00:00 AM EDT active Heparin Sodium (Porcine) 5000 un it/mL eCW1 ([facility]) Heparin Sodium (Porcine) 5000 unit/mL K 12/18/2020 12:00:00 AM EDT suspended Heparin Sodium (Porcine) 5000 un it/mL eCW1 ([facility]) Heparin Sodium (Porcine) 5000 unit/mL [facility] 12/18/2020 12:00:00 AM EDT active Heparin Sodium (Porcine) 5000 un it/mL eCW1 ([facility]) Heparin Sodium (Porcine) 5000 unit/mL [facility] 12/18/2020 12:00:00 AM EDT active Heparin Sodium (Porcine) 5000 un it/mL eCW1 ([facility]) Heparin Sodium (Porcine) 5000 unit/mL [facility] 12/18/2020 12:00:00 AM EDT active Heparin Sodium (Porcine) 5000 un it/mL eCW1 ([facility]) Heparin Sodium (Porcine) 5000 unit/mL K 12/18/2020 12:00:00 AM EDT active Heparin Sodium (Porcine) 5000 un it/mL eCW1 ([facility]) Heparin Sodium (Porcine) 5000 unit/mL K 12/18/2020 12:00:00 AM EDT active Heparin Sodium (Porcine) 5000 un it/mL eCW1 ([facility]) Heparin Sodium (Porcine) 5000 unit/mL K 12/18/2020 12:00:00 AM EDT active Heparin Sodium (Porcine) 5000 un it/mL eCW1 ([facility]) Heparin Sodium (Porcine) 5000 unit/mL K 12/18/2020 12:00:00 AM EDT suspended Heparin Sodium (Porcine) 5000 un it/mL eCW1 ([facility]) Heparin Sodium (Porcine) 5000 unit/mL K 12/18/2020 12:00:00 AM EDT active Heparin Sodium (Porcine) 5000 un it/mL eCW1 ([facility]) 750 mg 12/17/2020 12:00:00 AM EDT tablet [...] Drugs Nystatin 100 UNT/MG Topical Powder Nystatin 888867 UNI T/GM Nystatin 926791 UNIT/GM 11/08/2020 12:00:00 AM EDT 1.0 {application} active Nystatin 818109 UNIT/GM eCW1 ([facility]) Nystatin 100 UNT/MG Topical Powder Nystatin 089810 UNI T/GM Nystatin 970150 UNIT/GM 11/08/2020 12:00:00 AM EDT 1.0 {application} active Nystatin 295869 UNIT/GM eCW1 ([facility]) Nystatin 100 UNT/MG Topical Powder Nystatin 095158 UNI T/GM Nystatin 734923 UNIT/GM 11/08/2020 12:00:00 AM EDT 1.0 {application} active Nystatin [id number] UNIT/GM eCW1 ([facility]) Nystatin 100 UNT/MG Topical Powder Nystatin 815702 UNI T/GM Nystatin 845538 UNIT/GM 11/08/2020 12:00:00 AM EDT 1.0 {application} act ash eCW1 ([facility]) Nystatin 100 UNT/MG Topical Powder Nystatin 483152 UNI T/GM Nystatin 313610 UNIT/GM 11/08/2020 12:00:00 AM EDT 1.0 {application} active Nystatin 097157 UNIT/GM eCW1 ([facility]) Nystatin 100 UNT/MG Topical Powder Nystatin 810176 UNI T/GM Nystatin 893951 UNIT/GM 11/08/2020 12:00:00 AM EDT 1.0 {application} suspended Nystatin 206420 UNIT/GM eCW1 ([facility]) Nystatin 100 UNT/MG Topical Powder Nystatin 820596 UNI T/GM Nystatin 373942 UNIT/GM 11/08/2020 12:00:00 AM EDT 1.0 {application} active Nystatin 316500 UNIT/GM eCW1 ([facility]) Nystatin 100 UNT/MG Topical Powder Nystatin 726634 UNI T/GM Nystatin 241074 UNIT/GM 11/08/2020 12:00:00 AM EDT 1.0 {application} active Nystatin 024132 UNIT/GM eCW1 ([facility]) Nystatin 100 UNT/MG Topical Powder Nystatin 611532 UNI T/GM Nystatin 824021 UNIT/GM 11/08/2020 12:00:00 AM EDT 1.0 {application} active Nystatin 324488 UNIT/GM eCW1 ([facility]) Nystatin 100 UNT/MG Topical Powder Nystatin 353638 UNI T/GM Nystatin 607379 UNIT/GM 11/08/2020 12:00:00 AM EDT 1.0 {application} active Nystatin 323839 UNIT/GM eCW1 ([facility]) Nystatin 100 UNT/MG Topical Powder Nystatin 155460 UNI T/GM Nystatin 273033 UNIT/GM 11/08/2020 12:00:00 AM EDT 1.0 {application} active Nystatin 953442 UNIT/GM eCW1 ([facility]) Nystatin 100 UNT/MG Topical Powder Nystatin 221819 UNI T/GM Nystatin 959230 UNIT/GM 11/08/2020 12:00:00 AM EDT 1.0 {application} active Nystatin 388355 UNIT/GM eCW1 ([facility]) Nystatin 100 UNT/MG Topical Powder Nystatin 468176 UNI T/GM Nystatin 279725 UNIT/GM 11/08/2020 12:00:00 AM EDT 1.0 {application} active Nystatin 097228 UNIT/GM eCW1 ([facility]) Nystatin 100 UNT/MG Topical Powder Nystatin 218636 UNI T/GM Nystatin 598302 UNIT/GM 11/08/2020 12:00:00 AM EDT 1.0 {application} active Nystatin 050341 UNIT/GM eCW1 ([facility]) Nystatin 100 UNT/MG Topical Powder Nystatin 660182 UNI T/GM Nystatin 624265 UNIT/GM 11/08/2020 12:00:00 AM EDT 1.0 {application} active Nystatin 871790 UNIT/GM eCW1 ([facility]) Nystatin 100 UNT/MG Topical Powder Nystatin 855926 UNI T/GM Nystatin 932475 UNIT/GM 11/08/2020 12:00:00 AM EDT 1.0 {application} suspended Nystatin 602437 UNIT/GM eCW1 ([facility]) Nystatin 100 UNT/MG Topical Powder Nystatin 545336 UNI T/GM Nystatin 148210 UNIT/GM 11/08/2020 12:00:00 AM EDT 1.0 {application} suspended Nystatin 702132 UNIT/GM eCW1 ([facility]) Nystatin 100 UNT/MG Topical Powder Nystatin 440572 UNI T/GM Nystatin 721438 UNIT/GM 11/08/2020 12:00:00 AM EDT 1.0 {application} active Nystatin 882207 UNIT/GM eCW1 ([facility]) Nystatin 100 UNT/MG Topical Powder Nystatin 036301 UNI T/GM Nystatin 837496 UNIT/GM 11/08/2020 12:00:00 AM EDT 1.0 {application} active Nystatin 588844 UNIT/GM eCW1 ([facility]) Nystatin 100 UNT/MG Topical Powder Nystatin 464115 UNI T/GM Nystatin 757730 UNIT/GM 11/08/2020 12:00:00 AM EDT 1.0 {application} suspended Nystatin 912970 UNIT/GM eCW1 ([facility]) Nystatin 100 UNT/MG Topical Powder Nystatin 894764 UNI T/GM Nystatin 615345 UNIT/GM 11/08/2020 12:00:00 AM EDT 1.0 {application} active Nystatin 067658 UNIT/GM eCW1 ([facility]) Nystatin 100 UNT/MG Topical Powder Nystatin 205094 UNI T/GM Nystatin 399226 UNIT/GM 11/08/2020 12:00:00 AM EDT 1.0 {application} active Nystatin 894228 UNIT/GM eCW1 ([facility]) Nystatin 100 UNT/MG Topical Powder Nystatin 953801 UNI T/GM Nystatin 502941 UNIT/GM 11/08/2020 12:00:00 AM EDT 1.0 {application} active Nystatin [id number] UNIT/GM eCW1 ([facility]) 25 mg 10/25/2020 12:00:00 AM EDT tablet 30 TAKE ONE TABLET BY MOUTH ONCE DAILY NEEDED FOR ANXIETY TAKE ONE TABLET BY MOUTH ONCE DAILY N EEDED FOR ANXIETY SOLD: 10/25/2020 [facility] Clobetasol Prop Emollient Base 0.05 % Clobetasol Prop Emolli ent Base 0.05 % 10/09/2020 12:00:00 AM EDT active Clobetasol Prop Emollient Base 0.05 % eCW1 ([facility]) Clobetasol Prop Emollient Base 0.05 % Clobetasol Prop Emolli ent Base 0.05 % 10/09/2020 12:00:00 AM EDT active Clobetasol Prop Emollient Base 0.05 % eCW1 ([facility]) Clobetasol Prop Emollient Base 0.05 % Clobetasol Prop Emolli ent Base 0.05 % 10/09/2020 12:00:00 AM EDT active Clobetasol Prop Emollient Base 0.05 % eCW1 ([facility]) Clobetasol Prop Emollient Base 0.05 % Clobetasol Prop Emolli ent Base 0.05 % 10/09/2020 12:00:00 AM EDT suspended Clobetasol Prop Emollient Base 0.05 % eCW1 ([facility]) Clobetasol Prop Emollient Base 0.05 % Clobetasol Prop Emolli ent Base 0.05 % 10/09/2020 12:00:00 AM EDT active Clobetasol Prop Emollient Base 0.05 % eCW1 ([facility]) Clobetasol Prop Emollient Base 0.05 % Clobetasol Prop Emolli ent Base 0.05 % 10/09/2020 12:00:00 AM EDT active Clobetasol Prop Emollient Base 0.05 % eCW1 ([facility]) Clobetasol Prop Emollient Base 0.05 % Clobetasol Prop Emolli ent Base 0.05 % 10/09/2020 12:00:00 AM EDT active eCW1 ([facility]) Clobetasol Prop Emollient Base 0.05 % Clobetasol Prop Emolli ent Base 0.05 % 10/09/2020 12:00:00 AM EDT suspended Clobetasol Prop Emollient Base 0.05 % eCW1 ([facility]) Clobetasol Prop Emollient Base 0.05 % Clobetasol Prop Emolli ent Base 0.05 % 10/09/2020 12:00:00 AM EDT suspended Clobetasol Prop Emollient Base 0.05 % eCW1 ([facility]) Clobetasol Prop Emollient Base 0.05 % Clobetasol Prop Emolli ent Base 0.05 % 10/09/2020 12:00:00 AM EDT active Clobetasol Prop Emollient Base 0.05 % eCW1 ([facility]) Clobetasol Prop Emollient Base 0.05 % Clobetasol Prop Emolli ent Base 0.05 % 10/09/2020 12:00:00 AM EDT active Clobetasol Prop Emollient Base 0.05 % eCW1 ([facility]) Clobetasol Prop Emollient Base 0.05 % Clobetasol Prop Emolli ent Base 0.05 % 10/09/2020 12:00:00 AM EDT active Clobetasol Prop Emollient Base 0.05 % eCW1 ([facility]) Clobetasol Prop Emollient Base 0.05 % Clobetasol Prop Emolli ent Base 0.05 % 10/09/2020 12:00:00 AM EDT active Clobetasol Prop Emollient Base 0.05 % eCW1 ([facility]) Clobetasol Prop Emollient Base 0.05 % Clobetasol Prop Emolli ent Base 0.05 % 10/09/2020 12:00:00 AM EDT active Clobetasol Prop Emollient Base 0.05 % eCW1 ([facility]) Clobetasol Prop Emollient Base 0.05 % Clobetasol Prop Emolli ent Base 0.05 % 10/09/2020 12:00:00 AM EDT active Clobetasol Prop Emollient Base 0.05 % eCW1 ([facility]) Clobetasol Prop Emollient Base 0.05 % Clobetasol Prop Emolli ent Base 0.05 % 10/09/2020 12:00:00 AM EDT active Clobetasol Prop Emollient Base 0.05 % eCW1 ([facility]) Clobetasol Prop Emollient Base 0.05 % Clobetasol Prop Emolli ent Base 0.05 % 10/09/2020 12:00:00 AM EDT active Clobetasol Prop Emollient Base 0.05 % eCW1 ([facility]) Clobetasol Prop Emollient Base 0.05 % Clobetasol Prop Emolli ent Base 0.05 % 10/09/2020 12:00:00 AM EDT active Clobetasol Prop Emollient Base 0.05 % eCW1 ([facility]) Clobetasol Prop Emollient Base 0.05 % Clobetasol Prop Emolli ent Base 0.05 % 10/09/2020 12:00:00 AM EDT active Clobetasol Prop Emollient Base 0.05 % eCW1 ([facility]) Clobetasol Prop Emollient Base 0.05 % Clobetasol Prop Emolli ent Base 0.05 % 10/09/2020 12:00:00 AM EDT active Clobetasol Prop Emollient Base 0.05 % eCW1 ([facility]) Clobetasol Prop Emollient Base 0.05 % Clobetasol Prop Emolli ent Base 0.05 % 10/09/2020 12:00:00 AM EDT active Clobetasol Prop Emollient Base 0.05 % eCW1 ([facility]) Clobetasol Prop Emollient Base 0.05 % Clobetasol Prop Emolli ent Base 0.05 % 10/09/2020 12:00:00 AM EDT active Clobetasol Prop Emollient Base 0.05 % eCW1 ([facility]) 0.05 % 10/09/2020 12:00:00 AM EDT cream 15 APPLY A THIN LAYER TO GROIN TWO TIMES A DAY FOR 7 DAYS APPLY A THIN LAYER TO GROIN TWO TIMES A DAY FOR 7 DAYS SOLD: 10/10/2020 [facility] Clobetasol Prop Emollient Base 0.05 % Clobetasol Prop Emolli ent Base 0.05 % 10/09/2020 12:00:00 AM EDT suspended Clobetasol Prop Emollient Base 0.05 % eCW1 ([facility]) Clobetasol Prop Emollient Base 0.05 % Clobetasol Prop Emolli ent Base 0.05 % 10/09/2020 12:00:00 AM EDT active Clobetasol Prop Emollient Base 0.05 % eCW1 ([facility]) Levaquin 750 MG UNK 09/24/2020 12:00:00 AM EST 1.0 {tablet} active Levaquin 750 MG eCW1 ([facility]) Levaquin 750 MG UNK 09/24/2020 12:00:00 AM EST 1.0 {tablet} active Levaquin 750 MG eCW1 ([facility]) Levaquin 750 MG UNK 09/24/2020 12:00:00 AM EST 1.0 {tablet} active Levaquin 750 MG eCW1 ([facility]) Levaquin 750 MG UNK 09/24/2020 12:00:00 AM EST 1.0 {tablet} active Levaquin 750 MG eCW1 ([facility]) 750 mg 09/24/2020 12:00:00 AM EST tablet 10 TAKE ONE TABLET BY MOUTH EVERY DAY FOR 10 DAYS TAKE ONE TABLET BY MOUTH EVERY DAY FOR 10 DAYS SOLD: 021 [facility] Levaquin 750 MG UNK 09/24/2020 12:00:00 AM EST 1.0 {tablet} active Levaquin 750 MG eCW1 ([facility]) 10-100 mg/5 mL 09/23/2020 12:00:00 AM EST liquid 180 TAKE 10ML BY MOUTH EVERY 4 HOURS NEEDED , MAXIMUM DAILY DOSE = 60ML TAKE 10ML BY MOUTH EVERY 4 HOURS NEEDED , MAXIMUM DAILY DOSE = 60ML SOLD: 09/23/2020 [facility] Cheratussin AC 100-10 MG/5ML UNK 09/23/2020 12:00:00 AM ES T 10.0 {ml_as_needed} active Cheratussin AC 10 0-10 MG/5ML eCW1 ([facility]) Cheratussin AC 100-10 MG/5ML UNK 09/23/2020 12:00:00 AM ES T 10.0 {ml_as_needed} active Cheratussin AC 10 0-10 MG/5ML eCW1 ([facility]) Cheratussin AC 100-10 MG/5ML UNK 09/23/2020 12:00:00 AM ES T 10.0 {ml_as_needed} active Cheratussin AC 10 0-10 MG/5ML eCW1 ([facility]) Cheratussin AC 100-10 MG/5ML UNK 09/23/2020 12:00:00 AM ES T 10.0 {ml_as_needed} active Cheratussin AC 10 0-10 MG/5ML eCW1 ([facility]) Cheratussin AC 100-10 MG/5ML UNK 09/23/2020 12:00:00 AM ES T 10.0 {ml_as_needed} active Cheratussin AC 10 0-10 MG/5ML eCW1 ([facility]) 20 mg 09/16/2020 12:00:00 AM EST tablet [...] AM EST active May Have - eCW1 ([facility]) May Have - UNK 09/10/2020 12:00:00 AM EST active May Have - eCW1 ([facility]) May Have - UNK 09/10/2020 12:00:00 AM EST active May Have - eCW1 ([facility]) May Have - UNK 09/10/2020 12:00:00 AM EST suspend ed May Have - eCW1 ([facility]) May Have - UNK 09/10/2020 12:00:00 AM EST active May Have - eCW1 ([facility]) May Have - UNK 09/10/2020 12:00:00 AM EST active May Have - eCW1 ([facility]) May Have - UNK 09/10/2020 12:00:00 AM EST suspend ed May Have - eCW1 ([facility]) May Have - UNK 09/10/2020 12:00:00 AM EST active May Have - eCW1 ([facility]) May Have - UNK 09/10/2020 12:00:00 AM EST active May Have - eCW1 ([facility]) May Have - UNK 09/10/2020 12:00:00 AM EST active May Have - eCW1 ([facility]) May Have - UNK 09/10/2020 12:00:00 AM EST active May Have - eCW1 ([facility]) May Have - UNK 09/10/2020 12:00:00 AM EST active May Have - eCW1 ([facility]) May Have - UNK 09/10/2020 12:00:00 AM EST suspend ed May Have - eCW1 ([facility]) May Have - UNK 09/10/2020 12:00:00 AM EST active May Have - eCW1 ([facility]) May Have - UNK 09/10/2020 12:00:00 AM EST active May Have - eCW1 ([facility]) May Have - UNK 09/10/2020 12:00:00 AM EST active May Have - eCW1 ([facility]) May Have - UNK 09/10/2020 12:00:00 AM EST suspend ed May Have - eCW1 ([facility]) May Have - UNK 09/10/2020 12:00:00 AM EST active May Have - eCW1 ([facility]) May Have - UNK 09/10/2020 12:00:00 AM EST active May Have - eCW1 ([facility]) May Have - UNK 09/10/2020 12:00:00 AM EST active eCW1 ([facility]) May Have - UNK 09/10/2020 12:00:00 AM EST active May Have - eCW1 ([facility]) May Have - UNK 09/10/2020 12:00:00 AM EST active May Have - eCW1 ([facility]) May Have - UNK 09/10/2020 12:00:00 AM EST active May Have - eCW1 ([facility]) May Have - UNK 09/10/2020 12:00:00 AM EST active May Have - eCW1 ([facility]) May Have - UNK 09/10/2020 12:00:00 AM EST active May Have - eCW1 ([facility]) May Have - UNK 09/10/2020 12:00:00 AM EST active May Have - eCW1 ([facility]) May Have - UNK 09/10/2020 12:00:00 AM EST active May Have - eCW1 ([facility]) May Have - UNK 09/10/2020 12:00:00 AM EST active May Have - eCW1 ([facility]) May Have - UNK 09/10/2020 12:00:00 AM EST active May Have - eCW1 ([facility]) 25 mg 08/29/2020 12:00:00 AM EST tablet 60 TAKE 1/2 TO 1 TABLET BY MOUTH TWO TIMES A DAY NEEDED FOR ANXIETY TAKE 1/2 TO 1 TABLET BY MOUTH TWO TIMES A DAY NEEDED FOR ANXIETY SOLD: 08/30/2020 [facility] atorvastatin 20 MG Oral Tablet ATORVASTATIN CALCIUM [...] {tablet_as_needed} active O xycodone-Acetaminophen 5-325 MG eCW1 ([facility]) Acetaminophen 325 MG / Oxycodone Hydroch loride 5 MG Oral Tablet Oxycodone- Acetaminophen 5-325 MG Oxycodone-Acetaminophen 5-325 MG 07/10/2020 12:00:00 A M EST 1.0 {tablet_as_needed} active O xycodone-Acetaminophen 5-325 MG eCW1 ([facility]) Acetaminophen 325 MG / Oxycodone Hydroch loride 5 MG Oral Tablet Oxycodone- Acetaminophen 5-325 MG Oxycodone-Acetaminophen 5-325 MG 07/10/2020 12:00:00 A M EST 1.0 {tablet_as_needed} active O xycodone-Acetaminophen 5-325 MG eCW1 ([facility]) Acetaminophen 325 MG / Oxycodone Hydroch loride 5 MG Oral Tablet Oxycodone- Acetaminophen 5-325 MG Oxycodone-Acetaminophen 5-325 MG 07/10/2020 12:00:00 A M EST 1.0 {tablet_as_needed} active O xycodone-Acetaminophen 5-325 MG eCW1 ([facility]) Acetaminophen 325 MG / Oxycodone Hydroch loride 5 MG Oral Tablet Oxycodone- Acetaminophen 5-325 MG Oxycodone-Acetaminophen 5-325 MG 07/10/2020 12:00:00 A M EST 1.0 {tablet_as_needed} active O xycodone-Acetaminophen 5-325 MG eCW1 ([facility]) Acetaminophen 325 MG / Oxycodone Hydroch loride 5 MG Oral Tablet Oxycodone- Acetaminophen 5-325 MG Oxycodone-Acetaminophen 5-325 MG 07/10/2020 12:00:00 A M EST 1.0 {tablet_as_needed} active O xycodone-Acetaminophen 5-325 MG eCW1 ([facility]) 5-325 mg 07/10/2020 12:00:00 AM EST tablet [...] {tablet_as_needed} active O xycodone-Acetaminophen 5-325 MG eCW1 ([facility]) Acetaminophen 325 MG / Oxycodone Hydroch loride 5 MG Oral Tablet Oxycodone- Acetaminophen 5-325 MG Oxycodone-Acetaminophen 5-325 MG 07/10/2020 12:00:00 A M EST 1.0 {tablet_as_needed} active O xycodone-Acetaminophen 5-325 MG eCW1 ([facility]) tramadol hydrochloride 50 MG Oral Tablet TRAMADOL [...] MOUTH EVERY DAY AT BEDTIME SOLD: 06/09/2020 [facility] 113-14 mcg/actuation 05/30/2020 12:00:00 AM EST aerosol powdr breath activated 1 INHALE ONE PUFF BY MOUTH TWICE A DAY INHA LE ONE PUFF BY MOUTH TWICE A DAY SOLD: 06/01/2020 [facility] benzonatate 100 MG Oral Capsule [Tessalon Perles] Sophia qasim Perles 100 MG Tessalon Perles 100 MG 05/30/2020 12:00:00 AM EST 1.0 {capsule_as_nee ded} active Tessalon Perles 100 MG eCW1 ([facility]) meloxicam 7.5 MG Oral Tablet Meloxicam 7.5 MG Meloxicam 7.5 MG 05/30/2020 12:00:00 AM EST 1.0 {tablet} suspended Meloxicam 7.5 MG eCW1 ([facility]) 113-14 mcg/actuation 05/30/2020 12:00:00 AM EST aerosol powdr breath activated 1 INHALE ONE PUFF BY MOUTH TWICE A DAY INHA LE ONE PUFF BY MOUTH TWICE A DAY SOLD: 07/06/2020 [facility] benzonatate 100 MG Oral Capsule [Tessalon Perles] Sophia qasim Perles 100 MG Tessalon Perles 100 MG 05/30/2020 12:00:00 AM EST 1.0 {capsule_as_nee ded} suspended Tessalon Perles 100 MG eCW1 ([facility]) meloxicam 7.5 MG Oral Tablet Meloxicam 7.5 MG Meloxicam 7.5 MG 05/30/2020 12:00:00 AM EST 1.0 {tablet} suspended Meloxicam 7.5 MG eCW1 ([facility]) benzonatate 100 MG Oral Capsule [Tessalon Perles] Sophia qasim Perles 100 MG Tessalon Perles 100 MG 05/30/2020 12:00:00 AM EST 1.0 {capsule_as_nee ded} suspended Tessalon Perles 100 MG eCW1 ([facility]) benzonatate 100 MG Oral Capsule BENZONATATE 05/30/2020 [...] ded} suspended Tessalon Perles 100 MG eCW1 ([facility]) 113-14 mcg/actuation 05/30/2020 12:00:00 AM EST aerosol powdr breath activated 1 INHALE ONE PUFF BY MOUTH TWICE A DAY INHA LE ONE PUFF BY MOUTH TWICE A DAY SOLD: 10/25/2020 [facility] meloxicam 7.5 MG Oral Tablet Meloxicam 7.5 MG Meloxicam 7.5 MG 05/30/2020 12:00:00 AM EST 1.0 {tablet} suspended Meloxicam 7.5 MG eCW1 ([facility]) benzonatate 100 MG Oral Capsule [Tessalon Perles] Sophia qasim Perles 100 MG Tessalon Perles 100 MG 05/30/2020 12:00:00 AM EST 1.0 {capsule_as_nee ded} suspended Tessalon Perles 100 MG eCW1 ([facility]) meloxicam 7.5 MG Oral Tablet Meloxicam 7.5 MG Meloxicam 7.5 MG 05/30/2020 12:00:00 AM EST 1.0 {tablet} suspended Meloxicam 7.5 MG eCW1 ([facility]) meloxicam 7.5 MG Oral Tablet Meloxicam 7.5 MG Meloxicam 7.5 MG 05/30/2020 12:00:00 AM EST 1.0 {tablet} suspended Meloxicam 7.5 MG eCW1 ([facility]) meloxicam 7.5 MG Oral Tablet Meloxicam 7.5 MG Meloxicam 7.5 MG 05/30/2020 12:00:00 AM EST 1.0 {tablet} suspended Meloxicam 7.5 MG eCW1 ([facility]) benzonatate 100 MG Oral Capsule [Tessalon Perles] Sophia qasim Perles 100 MG Tessalon Perles 100 MG 05/30/2020 12:00:00 AM EST 1.0 {capsule_as_nee ded} suspended Tessalon Perles 100 MG eCW1 ([facility]) 113-14 mcg/actuation 05/30/2020 12:00:00 AM EST aerosol powdr breath activated 1 INHALE ONE PUFF BY MOUTH TWICE A DAY INHA LE ONE PUFF BY MOUTH TWICE A DAY SOLD: 08/13/2020 [facility] benzonatate 100 MG Oral Capsule [Tessalon Perles] Sophia qasim Perles 100 MG Tessalon Perles 100 MG 05/30/2020 12:00:00 AM EST 1.0 {capsule_as_nee ded} suspended Tessalon Perles 100 MG eCW1 ([facility]) benzonatate 100 MG Oral Capsule [Tessalon Perles] Sophia qasim Perles 100 MG Tessalon Perles 100 MG 05/30/2020 12:00:00 AM EST 1.0 {capsule_as_nee ded} suspended Tessalon Perles 100 MG eCW1 ([facility]) meloxicam 7.5 MG Oral Tablet Meloxicam 7.5 MG Meloxicam 7.5 MG 05/30/2020 12:00:00 AM EST 1.0 {tablet} suspended Meloxicam 7.5 MG eCW1 ([facility]) meloxicam 7.5 MG Oral Tablet Meloxicam 7.5 MG Meloxicam 7.5 MG 05/30/2020 12:00:00 AM EST 1.0 {tablet} active Me loxicam 7.5 MG eCW1 ([facility]) atorvastatin 20 MG Oral Tablet Atorvastatin Calcium 20 MG Atorvastatin Calcium 20 MG 05/14/2020 12:00:00 AM EDT 1.0 {tablet} activ e Atorvastatin Calcium 20 MG eCW1 ([facility]) atorvastatin 20 MG Oral Tablet ATORVASTATIN CALCIUM 05/14/2020 1 2:00:00 AM EDT tablet 30 TAKE ONE TABLET BY MOUTH EVERY D AY TAKE ONE TABLET BY MOUTH EVERY DAY SOLD: 05/17/2020 [facility] atorvastatin 20 MG Oral Tablet Atorvastatin Calcium 20 MG Atorvastatin Calcium 20 MG 05/14/2020 12:00:00 AM EDT 1.0 {tablet} suspe nded Atorvastatin Calcium 20 MG eCW1 ([facility]) atorvastatin 20 MG Oral Tablet Atorvastatin Calcium 20 MG Atorvastatin Calcium 20 MG 05/14/2020 12:00:00 AM EDT 1.0 {tablet} suspe nded Atorvastatin Calcium 20 MG eCW1 ([facility]) atorvastatin 20 MG Oral Tablet Atorvastatin Calcium 20 MG Atorvastatin Calcium 20 MG 05/14/2020 12:00:00 AM EDT 1.0 {tablet} suspe nded Atorvastatin Calcium 20 MG eCW1 ([facility]) atorvastatin 20 MG Oral Tablet Atorvastatin Calcium 20 MG Atorvastatin Calcium 20 MG 05/14/2020 12:00:00 AM EDT 1.0 {tablet} suspe nded Atorvastatin Calcium 20 MG eCW1 ([facility]) atorvastatin 20 MG Oral Tablet Atorvastatin Calcium 20 MG Atorvastatin Calcium 20 MG 05/14/2020 12:00:00 AM EDT 1.0 {tablet} suspe nded Atorvastatin Calcium 20 MG eCW1 ([facility]) atorvastatin 20 MG Oral Tablet Atorvastatin Calcium 20 MG Atorvastatin Calcium 20 MG 05/14/2020 12:00:00 AM EDT 1.0 {tablet} suspe nded Atorvastatin Calcium 20 MG eCW1 ([facility]) atorvastatin 20 MG Oral Tablet Atorvastatin Calcium 20 MG Atorvastatin Calcium 20 MG 05/14/2020 12:00:00 AM EDT 1.0 {tablet} activ e Atorvastatin Calcium 20 MG eCW1 ([facility]) atorvastatin 20 MG Oral Tablet Atorvastatin Calcium 20 MG Atorvastatin Calcium 20 MG 05/14/2020 12:00:00 AM EDT 1.0 {tablet} suspe nded Atorvastatin Calcium 20 MG eCW1 ([facility]) atorvastatin 20 MG Oral Tablet Atorvastatin Calcium 20 MG Atorvastatin Calcium 20 MG 05/14/2020 12:00:00 AM EDT 1.0 {tablet} activ e Atorvastatin Calcium 20 MG eCW1 ([facility]) 40 mg 05/10/2020 12:00:00 AM EDT capsule,delayed [...] type / Coverage type Policy ID Covered constitution party ID Covered constitution party's relationship to dominguez Policy Dominguez Plan Information [facility] COMMUNITY PLAN [id number] SP 1 [id number] [facility] Community Plan Commercial [id number] Self [id number] [facility] [id number] SP [id number] [facility] I [id number] Self [id number] [facility] [id number] SP [id number] [facility]) O [id number] S [id number] [facility]) O [id number] S [id number] MEDICAID [id number] SP [id number] [facility] COMMUNITY PLAN [id number] 18 [id number] [facility]-Medicaid [id number] ANSI-Medicaid [id number] ANSI-Medicaid [id number] ANSI-Medicaid [id number] [facility]LY [facility] [place] [facility] [id number] ANSI-Medicaid [id number] ANSI-Medicaid [id number] ANSI-Medicaid [id number] ANSI-Medicaid [id number] ANSI-Medicaid [id number] ANSI-Medicaid [id number] ANSI-Medicaid [id number] ANSI-Medicaid [id number] ANSI-Medicaid [id number] ANSI-Medicaid [id number] [facility]UNITY [facility] [facility] [id number] SP [id number] ANSI-Medicaid [id number] ANSI-Medicaid [id number] ANSI-Medicaid [id number] [facility] [id number] SP [id number] ANSI-Medicaid [id number] ANSI-Medicaid [id number] ANSI-Medicaid [id number] ANSI-Medicaid [id number] ANSI-Medicaid [id number] ANSI-Medicaid [id number] ANSI-Medicaid [id number] ANSI-Medicaid [id number] ANSI-Medicaid [id number] ANSI-Medicaid [id number] ANSI-Medicaid [id number] ANSI-Medicaid [id number] ANSI-Medicaid [id number] ANSI-Medicaid [id number] ANSI-Medicaid [id number] ANSI-Medicaid [id number] ANSI-Medicaid [id number] ANSI-Medicaid [id number] ANSI-Medicaid [id number] ANSI-Medicaid [id number] ANSI-Medicaid [id number] ANSI-Medicaid [id number] ANSI-Medicaid [id number] ANSI-Medicaid [id number] ANSI-Medicaid [id number] ANSI-Medicaid [id number] ANSI-Medicaid [id number] ANSI-Medicaid [id number] ANSI-Medicaid [id number] ANSI-Medicaid [id number] ANSI-Medicaid [id number] ANSI-Medicaid [id number] [facility] [facility] [id number] SP [id number] ANSI-Medicaid [id number] ANSI-Medicaid [id number] [facility] [id number] SP [id number] [facility] [id number] SP [id number] ANSI-Medicaid [id number] ANSI-Medicaid [id number] ANSI-Medicaid [id number] ANSI-Medicaid [id number] ANSI-Medicaid [id number] ANSI-Medicaid [id number] ANSI-Medicaid [id number] ANSI-Medicaid [id number] ANSI-Medicaid [id number] ANSI-Medicaid [id number] [facility] [id number] 18 [id number] ANSI-Medicaid [id number] ANSI-Medicaid [id number] [facility] Medicaid [id number] Self [id number] MEDICAID [facility] [id number] D [id number] UN COMMUNITY PLAN XIX [id number] 18 [id number] ANSI-Medicaid [id number] ANSI-Medicaid [id number] ANSI-Medicaid [id number] ANSI-Medicaid [id number] ANSI-Medicaid [id number] ANSI-Medicaid [id number] ANSI-Medicaid [id number] ANSI-Medicaid [id number] ANSI-Medicaid [id number] ANSI-Medicaid [id number] ANSI-Medicaid [id number] ANSI-Medicaid [id number] MEDICAID [id number] SP [id number] ANSI-Medicaid [id number] ANSI-Medicaid [id number] ANSI-Medicaid [id number] ANSI-Medicaid [id number] MEDICAID -O/P [id number] [facility]UNITY [facility] [facility] [id number] SP [id number] [facility] [id number] SP [id number] [facility] [id number] SP [id number] [facility] [id number] SP [id number] [facility] [id number] SP [id number] SELF PAY ONLY [id number] SP [id number] [facility] [id number] SP [id number] SELF PAY ONLY [id number] SP [id number] Medicaid [facility] Part B [id number] Self [id number] [facility] MEDICAID [facility] HMO [id number] S [id number] MEDICAID BETTY [id number] UN[employer] AMERICHOICE XIX -O [id number] 18 [id number] MEDICAID -O/P EMERGENCY ROOM [id number] 18 [id number] MEDICAID M [id number] S [id number] Medicaid [facility] Part B [id number] Self [id number] MEDICAID [id number] SP [id number] [facility] [facility] [id number] SP [id number] [facility] [id number] S [id number] [facility] COMMUNITY [facility] [id number] 18 [id number] [facility] [id number] SP [id number] [facility] O [id number] S [id number] [facility] [id number] S [id number] Problems, Conditions, and Diagnoses Code Display Name Description Problem Type Effective Dates Data Source(s) N12595 Personal history of other venous thrombo sis and embolism Personal history of other venous thrombosis and embolism Diagnosis 02/18/2021 02:36:00 PM EDT [facility] Z8541 Personal history of malignant neoplasm o f cervix uteri Personal history of malignant neoplasm of cervix uteri Diagnosis 02/18/2021 02:36:00 PM ED T [facility] Z7901 residential (current) use of anticoagulant s residential (current) use of anticoagulants Diagnosis 02/18/2021 02:36:00 PM EDT [facility] O10297 Nicotine dependence, cigarettes, uncompl icated Nicotine dependence, cigarettes, uncomplicated Diagnosis 02/18/2021 02:36:00 PM EDT [facility] I10 Essential (primary) hypertension Essential (primary) h ypertension Diagnosis 02/18/2021 02:36:00 PM EDT [facility] 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 Diagnosis 02/18/2021 02:36: 00 PM EDT [facility] A68965 Pain in right ankle and joints of right foot Pain in right ankle and joints of right foot Diagnosis 02/18/2021 02:36:[address] [facility] M42494 Unspecified asthma, uncomplicated Unspecified as thma, uncomplicated Diagnosis 02/17/2021 08:20:00 PM EDT [facility] J208 Acute bronchitis due to other specified organisms Acute bronchitis due to other specified organisms Diagnosis 02/17/2021 08:20:00 PM EDT [facility] R0600 Dyspnea, unspecified Dyspnea, unspecified Diagnosis 02/17/2021 08:20:00 PM EDT [facility] R1084 Generalized abdominal pain Generalized abdominal pain Diagnosis 02/10/2021 11:55:00 PM EDT [facility] Z6839 Body mass index [BMI] 39.0-39.9, adult B desi mass index [BMI] 39.0-39.9, adult Diagnosis 12/13/2020 04:26:00 PM EDT [facility] E669 Obesity, unspecified Obesity, unspecified Diagnosis 12/13/2020 04:26:00 PM EDT [facility] G8929 Other chronic pain Other chronic pain Diagnosis 04:26:00 PM EDT [facility] R1031 Right lower quadrant pain Right lower quadrant pain Di agnosis 12/13/2020 04:26:00 PM EDT [facility] Z86.711 [id number] Hx pulmonary embolism Problem 07/02/2020 12: 00:00 AM EST eCW1 ([facility]) F17.200 [id number] Smoker Problem 07/02/2020 12:00:00 AM ES T eCW1 ([facility]) Z79.01 [id number] Chronic anticoagulation Problem 07/02/2020 1 2:00:00 AM EST eCW1 ([facility]) J45.31 [id number] Mild persistent asthma with acute exac erbation Problem 05/30/2020 12:00:00 AM EST eCW1 ([facility]) E78.2 [id number] Hyperlipidemia, mixed Problem 05/14/2020 12: 00:00 AM EDT eCW1 ([facility]) Z86.718 [id number] H/O deep venous thrombosis Problem 0 12:00:00 AM EDT eCW1 ([facility]) Surgeries/Procedures Procedure Description Date Indications Data Source(s) Evaluation AND/OR management - established patient (procedur e) 03/12/2021 12:00:00 [facility] Individual psychotherapy (regime/therapy) 03/03/2021 1 2:00:00 AM EDT [facility] ([facility]) Evaluation AND/OR management - established patient (procedur e) 01/14/2021 12:00:00 AM [facility]) Individual psychotherapy (regime/therapy) 01/02/2021 1 2:00:00 AM EDT [facility] ([facility]) Individual psychotherapy (regime/therapy) 01/02/2021 1 2:00:00 AM EDT [facility] ([facility]) Individual psychotherapy (regime/therapy) 12/03/2020 1 2:00:00 AM EDT [facility] ([facility]) Individual psychotherapy (regime/therapy) 12/03/2020 1 2:00:00 AM EDT [facility] ([facility]) Individual psychotherapy (regime/therapy) 11/18/2020 1 2:00:00 AM [facility]) Individual psychotherapy (regime/therapy) 11/18/2020 1 2:00:00 AM EDT [facility] ([facility]) Individual psychotherapy (regime/therapy) 11/18/2020 1 2:00:00 AM EDT [facility] ([facility]) Evaluation AND/OR management - established patient (procedur e) 11/13/2020 12:00:00 AM [facility]) Evaluation AND/OR management - established patient (procedur e) 11/13/2020 12:00:00 AM EDT [facility] ([facility]) Evaluation AND/OR management - established patient (procedur e) 11/13/2020 12:00:00 AM EDT [facility] ([facility]) Evaluation AND/OR management - established patient (procedur e) 10/16/2020 12:00:00 AM EDT [facility] ([facility]) Evaluation AND/OR management - established patient (procedur e) 10/16/2020 12:00:00 AM EDT [facility] ([facility]) Evaluation AND/OR management - established patient (procedur e) 10/16/2020 12:00:00 AM EDT [facility] ([facility]) Individual psychotherapy (regime/therapy) 10/10/2020 1 2:00:00 AM EDT [facility] ([facility]) Individual psychotherapy (regime/therapy) 10/10/2020 1 2:00:00 AM EDT [facility] ([facility]) Individual psychotherapy (regime/therapy) 10/10/2020 1 2:00:00 AM EDT [facility] ([facility]) Individual psychotherapy (regime/therapy) 09/24/2020 1 2:00:00 AM EST [facility] ([facility]) Individual psychotherapy (regime/therapy) 09/24/2020 1 2:00:00 AM EST [facility] ([facility]) Individual psychotherapy (regime/therapy) 09/24/2020 1 2:00:00 AM EST [facility] ([facility]) Evaluation AND/OR management - established patient (procedur e) 09/16/2020 12:00:00 AM EST [facility] ([facility]) Evaluation AND/OR management - established patient (procedur e) 09/16/2020 12:00:00 AM EST [facility] ([facility]) Evaluation AND/OR management - established patient (procedur e) 09/16/2020 12:00:00 AM EST [facility] ([facility]) Individual psychotherapy (regime/therapy) 09/03/2020 1 2:00:00 AM EST [facility] ([facility]) Individual psychotherapy (regime/therapy) 09/03/2020 1 2:00:00 AM EST [facility] ([facility]) Individual psychotherapy (regime/therapy) 09/03/2020 1 2:00:00 AM EST [facility] ([facility]) Evaluation AND/OR management - established patient (procedur e) 08/29/2020 12:00:00 AM EST [facility] ([facility]) Evaluation AND/OR management - established patient (procedur e) 08/29/2020 12:00:00 AM EST [facility] ([facility]) Evaluation AND/OR management - established patient (procedur e) 08/29/2020 12:00:00 AM EST [facility] ([facility]) ECG ROUTINE ECG W/LEAST 12 LDS W/I&R 07/05/2020 12:00: 00 AM EST eCW1 ([facility]) Evaluation AND/OR management - established patient (procedur e) 06/05/2020 12:00:00 AM EST [facility] ([facility]) Evaluation AND/OR management - established patient (procedur e) 06/05/2020 12:00:00 AM EST [facility] Evaluation AND/OR management - established patient (procedur e) 06/05/2020 12:00:00 AM EST [facility] Evaluation AND/OR management - established patient (procedur e) 04/25/2020 12:00:00 AM EDT [facility] ([facility]) Evaluation AND/OR management - established patient (procedur e) 04/25/2020 12:00:00 AM EDT [facility] ([facility]) Evaluation AND/OR management - established patient (procedur e) 04/25/2020 12:00:00 AM EDT [facility] ([facility]) Individual psychotherapy (regime/therapy) 03/22/2020 1 2:00:00 AM [facility]) Individual psychotherapy (regime/therapy) 03/22/2020 1 2:00:00 AM EDT [facility] ([facility]) Individual psychotherapy (regime/therapy) 03/22/2020 1 2:00:00 AM EDT [facility] ([facility]) Evaluation AND/OR management - established patient (procedur e) 03/18/2020 12:00:00 AM EDT [facility] ([facility]) Evaluation AND/OR management - established patient (procedur e) 03/18/2020 12:00:00 AM EDT [facility] ([facility]) Evaluation AND/OR management - established patient (procedur e) 03/18/2020 12:00:00 AM EDT [facility] ([facility]) Results ID Date Data Source CHLAMYDIA & GC DNA AMPLIFICAT 04/07/2021 12:00:00 AM EDT [facility] ([facility]) Name Value Range Interpretation Code Description Data Rhonda rce(s) Supporting Document(s) Chlamydia trachomatis rRNA [Presence] in Unspecified specimen by Probe and target amplification method NEGATIVE NEGATIVE CHLAMYDIA DNA AMPLIFICATION [facility] ([facility]) ID Date Data Source [id number] 02/20/2021 10:04:00 [place] [address] PHONE: [phone] FAX: [phone] Name .................. : HANANE El Acct Number.................. : [id number] ROOM. ................. : TR-08 Number ................... : [id number] Stay type ............. : E/R Discharge Date......... ... : 02/18/21 Admit Date ......... : 02/18/21 Admit Phys .................... : SUDHA Denis Date of ....... : 1980 Family Phys ................... : MARA Phone .................. : [phone] Age ................................ : 41 Film# .................. .:[id number] Sex ................................. : F Unsigned transcriptions are preliminary reports and do not represent a medical or legal document [place] [id number] COMPLETE:02/18/21 16:30 KNB 09141 Reason(s): Lower Extremity Tingling RIGHT LOWER EXTREMITY [...] By ROSI FALL MD , 02/20/21 10:04, [facility] Transcribe Initials: JB , Transcribe Date: 02/18/21 17:48, Dictation Date: Copy for: MARA MATEUSZ via fax Copy for: EMERGENCY DEPT via [facility] Copy for: 710 MED REC DISCHARGED Page 1 of 1 Name Value Range Interpretation Code Description Data Rhonda rce(s) Supporting Document(s) ID Date Data Source [id number] 02/18/2021 02:36:00 PM EDT [facility] 1 OrderSheet [facility] Emergency Department [address] [place] [address] Phone #: ext- [phone] 02/18/2021 14:35 [id number] Sex: F : 1980 Age: 41yWEIGHT:104.3 kg [...] rce(s) Supporting Document(s) ID Date Data Source [id number] 02/18/2021 02:36:00 PM EDT [facility] 1 Medication Reconciliation Report [facility] Emergency Department [address] [place] [address] Phone #: ext- [phone] 02/18/2021 14:35 Patient: ELGIN KOO Sex: F [...] Value Range Interpretation Code Description Data [facility](s) Supporting Document(s) ID Date Data Source [id number] 02/18/2021 02:36:00 PM EDT [place] [id number] Medication Administration Record [facility] Emergency Department [address] [place] [address] Phone #: ext- [phone] 02/18/2021 14:35 [id number] Sex[facility] F : 1980 Age: 41yWeight: 104.3 kgHeight/Length: 65 inBMI: 38.3ALLERGIES: KOSTA Inhibitors, Acetaminophen, Cephalosporins, Motrin, Penicillins, SudafedDate/Time Medication Administered Medication Ordered Name Value Range Interpretation Code Description Data Rhodna rce(s) Supporting Document(s) ID Date Data Source [id number] 02/18/2021 02:36:00 PM EDT [facility] 1 General Instructions [facility] Emergency Department [address] [place] [address] Phone #: ext- [phone] 02/18/2021 14:35 Patient: ELGIN KOO [facility]#: [id number] Sex: F : 1980 Age: 41yChronic venous insufficiency of the right lower extremity with varicose veins and pain.INSTRUCTIONS(Try Compression stockings available at [employer] or [employer]).Warnings: Further evaluation is necessary. It is very [...] chances of heart attack 2 General Instructions [facility] Emergency Department [address] [place] [address] Phone #: ext- [phone] 02/18/2021 14:35 Patient: ELGIN KOO [facility]#: [id number] Sex: F : 1980 Age: 41yand stroke.Risk [...] program or support group. 3 General Instructions [facility] Emergency Department [address] [place] [address] Phone #: ext- [phone] 02/18/2021 14:35 Patient: ELGIN KOO [facility]#: [id number] Sex: F : 1980 Age: 41y Be [...] more than a few 4 General Instructions [facility] Emergency Department [address] [place] [address] Phone #: ext- [phone] 02/18/2021 14:35 Patient: [...] Sudden, severe headache with no known cause [employer]. [address] [place] [address], [place] [address]. All rights reserved. This information is not intended as asubstitute for professional medical care. Always follow your healthcare professional's instructions. You have been given the following additional information: Peripheral Artery Disease (PAD)(Electronically signed by MOSHE Lux 02/18/2021 22:29) Name Value Range Interpretation Code Description Data Rhonda rce(s) Supporting Document(s) ID Date Data Source [id number] 02/18/2021 02:36:00 PM EDT [facility] 1 Clinical Report - Nurses [facility] Emergency Department [address] [place] [address] Phone #: ext- [phone] 02/18/2021 14:35 Patient: ELGIN KOO Sex: F : 1980 Age: 41yTRIAGEArrived by EMS. Historian: patient. Unaccompanied. ( went to [facility] and told there is a 6 hour wait.drove back and called ambulance to come to [facility] for right lower leg blood clots, numbness paresthesia.).Triage time: 14:46 02/18/2021. Acuity: LEVEL 4.Chief Complaint: RIGHT LOWER EXTREMITY PAIN, NUMBNESS and TINGLING. Location ofsymptoms- right leg and right ankle.14:45 02/18/21. Alert. No acute distress.No injury occurred. This started last night.Treatment PILATES INSTRUCTOR:Seen within the last 24 hours at another [...] Marquez R.N.PROBLEMS:Bronchitis. 2 Clinical Report - Nurses [facility] Emergency Department [address] [place] [address] Phone #: ext- [phone] 02/18/2021 14:35 Patient: [...] record. --14:51 02/18/21SoRaul conde R.N.ADDITIONAL SURGERIES:CERVICAL CANCER..Dental Surgery.Hubbell filter.Partial hysterectomy.Previous Abdominal Surgery. --14:49 02/18/21 Raul Marquez R.N.Kmvuxde40:45 02/18/21.SOCIAL HX: Current every day light tobacco [...] no barriers. 3 Clinical Report - Nurses [facility] Emergency Department [address] [place] [address] Phone #: ext- [phone] 02/18/2021 14:35 Patient: ELGIN KOO Sex: F [...] treatment room. --14:51 02/18/21 Raul Marquez R.N.PHYSICAL [id number] 02/18/21. Ambulatory to room.GENERAL / NEURO / [...] F. Pain level now 0/10. 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 Condition at departure: improved and stable. The goals identified in the patient's plan of care were met. Fall risk assessment completed. No risk factors identified. No learning barriers present. Discharge instructions provided and reviewed with the patient. Reviewed warnings. Reviewed medication(s). Treatments reviewed. Reviewed referral to a primary care physician. Patient verbalized understanding. Written instructions provided in Faroese. The patient was discharged by the physician shipping assistant. She was discharged home. She left ambulatory and via taxi. --16:12 02/18/21 Raul Marquez R.N. 4 Clinical Report - Nurses [facility] Emergency Department [address] [place] [address] Phone #: ext- [phone] 02/18/2021 14:35 Patient: ELGIN KOO Sex: F : 1980 Age: 41yLocked/Released at 02/18/2021 18:47 by Raul Marquez R.N. Name Value Range Interpretation Code Description Data Rhonda rce(s) Supporting Document(s) ID Date Data Source [id number] 02/18/2021 02:36:00 PM EDT [facility] 1 Clinical Report - Physicians/Mid Levels [facility] Emergency Department [address] [place] [address] Phone #: ext [phone] 02/18/2021 14:35 Patient: ELGIN KOO Sex: F : 1980 Age: 41y Time Seen: 14:50 02/18/2021. Arrived- By ambulance. Historian- patient and EMS personnel.HISTORY OF PRESENT ILLNESS Chief Complaint: LOWER EXTREMITY PAIN, SWELLING and ALTERED SENSATION and ; PAIN, SWELLING and ALTERED SENSATION IN THE RIGHT ANKLE and RIGHT FOOT. This started today and is still present (went to [facility] and told there is a 6 hour wait. drove back and called ambulance to come to [facility] for right lower leg blood clots, [...] Additional Surgeries: CERVICAL CANCER. . Dental Surgery. Hubbell filter. Partial hysterectomy. 2 Clinical Report - Physicians/Mid Levels [facility] Emergency Department [address] [place] [address] Phone #: ext- [phone] 02/18/2021 14:35 Patient: ELGIN KOO Sex: F : 1980 Age: 41y Previous Abdominal Surgery. Medications: Abilify Oral (Tablet 5 mg) 1 tablet, daily at bedtime, last dose [id number]. Atorvastatin Calcium Oral (Tablet 20 mg), [...] to 3 Clinical Report - Physicians/Mid Levels [facility] Emergency Department [address] [place] [address] Phone #: ext- [phone] 02/18/2021 14:35 Patient: ELGIN OKO [facility]#: [id number] Sex: F : 1980 Age: 41y follow [...] and pain.INSTRUCTIONS (Try Compression stockings available at [employer]). Warnings: Further evaluation is necessary. It is [...] rce(s) Supporting Document(s) ID Date Data Source [id number] 02/18/2021 01:22:00 [place] [address] PHONE: [phone] FAX: [phone] Name .................. : HANANE El Acct Number.................. : [id number] ROOM. ................. : TR-[id number] MR Number ................... : [id number] Stay type ............. : E/R Discharge Date......... ... : 02/17/21 Admit Date ......... : 02/17/21 Admit Phys .................... : JAYCE YE Date of ....... : 1980 Family Phys ................... : [employer] / TLL Phone .................. : [phone] Age ................................ : 41 Film# .................. .:[id number] Sex ................................. : F Unsigned transcriptions are preliminary reports and do not represent a medical or legal document CHEST 2 VIEWS [id number] COMPLETE:02/17/21 21:29 MWB [id number] Reason(s): Cough FRONTAL AND LATERAL CHEST, 02/17/21: [...] rce(s) Supporting Document(s) ID Date Data Source [id number] 02/17/2021 08:20:00 PM EDT [facility] 1 OrderSheet [facility] Emergency Department [address] [place] [address] Phone #: ext- [phone] 02/17/2021 20:18 Patient: [...] consideration given -- 20:51 02/17/2021 2 OrderSheet [facility] Emergency Department [address] [place] [address] Phone #: ext- [phone] 02/17/2021 20:18 Patient: ELGIN KOO Sex: F : 1980 Age: 41y Mateusz [...] rce(s) Supporting Document(s) ID Date Data Source [id number] 02/17/2021 08:20:00 PM EDT [facility] 1 Medication Reconciliation Report [facility] Emergency Department [address] [place] [address] Phone #: ext- [phone] 02/17/2021 20:18 [...] days -- Dispense 1 pack.Refills: 0. Substitution permitted.[facility] [id number] [place] [address]. FaxNumber: [phone]. 2 Medication Reconciliation Report [facility] Emergency Department [address] [place] [address] Phone #: ext- [phone] 02/17/2021 20:18 Patient: ELGIN KOO Sex: F : 1980 Age: 41yazithromycin 250 mg tablet -- Take one tablet daily for 4 days, Dispense 4 tablet. Refills: 0.Substitution permitted.[facility] [address] [place] [address]. FaxNumber: .albuterol sulfate HFA 90 mcg/actuation aerosol inhaler Inhale 2 puff four times a day -- Dispense 8.5gram. Refills: 0. Substitution permitted.[facility] [address] [place] [address]. FaxNumber: . -- MOSHE Lux Name Value Range Interpretation Code Description Data Rhonda rce(s) Supporting Document(s) ID Date Data Source [id number] 02/17/2021 08:20:00 PM EDT [facility] 1 Medication Administration Record [facility] Emergency Department [address] [place] [address] Phone #: ext- [phone] 02/17/2021 20:18 Patient: ELGIN KOO Sex: F : 1980 Age: 41yWeight: 104.3 kgHeight/Length: 65 inBMI: 38.3ALLERGIES: KOSTA Inhibitors, Acetaminophen, Cephalosporins, Motrin, Penicillins, Sudafed Date/Time Medication Administered Medication OrderedStart NS [IV] NS IV 1000 mL Bolus: : Bolus 125605:[id number] 02/17/2021 Dose: IV Fluids mL (X1)Leo Tavarez [...] rce(s) Supporting Document(s) ID Date Data Source [id number] 02/17/2021 08:20:00 PM EDT [facility] 1 General Instructions [facility] Emergency Department [address] [place] [address] Phone #: ext- [phone] 02/17/2021 20:18 [id number] Sex[facility] F : 1980 Age: 41yAcute bacterial [...] days -- Dispense 1 pack.Refills: 0. Substitution permitted.[facility] [address] [place] [address]. FaxNumber: .azithromycin 250 mg tablet -- Take one tablet daily for 4 days, Dispense 4 tablet. Refills: 0.Substitution permitted.[facility] [id number] [facility] ; [place] [address]. FaxNumber: .albuterol sulfate HFA 90 mcg/actuation aerosol inhaler Inhale 2 puff four times a day -- Dispense 8.5gram. Refills: 0. Substitution permitted.[facility] [address] [facility] [place] [address]. FaxNumber: .Follow-up:Follow up with your doctor in two days. Call for the next available appointment. Reason for referral:evaluation and treatment. Summary of care provided to patient. 2 General Instructions [facility] Emergency Department [address] [place] [address] Phone #: ext- [phone] 02/17/2021 20:18 Patient: ELGIN KOO Sex: F [...] istreated with an antibiotic. 3 General Instructions [facility] Emergency Department [address] [place] [address] Phone #: fye- [phone] 02/17/2021 20:18 Patient: ELGIN KOO Sex: F : 1980 Age: 41yHome careFollow these guidelines when caring for yourself at home: If your symptoms are severe, rest at home for the first 2 to 3 days. When you go back to your usual activities, don't let yourself get too tired. Don't smoke. Also stay away from secondhand smoke. You may use mmsg-jsx-kqajwgk medicines to control fever or pain, unless [...] loosen mucus in your nose and lungs. Ebrb-egc-zovfptl cough, cold, and sore-throat medicines will not [...] or a stiff neck 4 General Instructions [facility] Emergency Department [address] [place] [address] Phone #: ext- [phone] 02/17/2021 20:18 Patient: ELGIN KOO Sex: F : 1980 Age: 41yCall 911Call 911 if any of these occur. Coughing up blood Weakness, drowsiness, headache, or stiff neck that get worse Trouble breathing, wheezing, or pain with breathing [employer]. [address] [place] [address]. All rights reserved. This information is not intended as asubstitute for professional medical care. Always follow your healthcare professional's instructions. You have been given the following additional information: Bronchitis, Antibiotic Treatment (Adult)(Electronically signed by MOSHE Lux 02/17/2021 22:08) Name Value Range Interpretation Code Description Data Rhonda rce(s) Supporting Document(s) ID Date Data Source [id number] 02/17/2021 08:20:00 PM EDT [facility] 1 Clinical Report - Nurses [facility] Emergency Department [address] [place] [address] Phone #: ext- [phone] 02/17/2021 20:18 Patient: [...] and ibuprofen. States she was just at [facility] butdidn't want to wait.).Treatment PILATES INSTRUCTOR:None. --20:22 02/17/21 Johnny Powern20:19 02/17/21. BP: 117/64. HR: 87. RR: 14. O2 saturation: 98%. Temp: 99.3 F. Pain level now 6/10.--20:22 02/17/21 Shanell Poweruity: LEVEL 3.Alert. No acute distress.SEPSIS SCREEN: SIRS SCREEN NEGATIVE. SEPSIS SCREEN NEGATIVE. No suspected or confirmedsigns of infection present. --20:23 02/17/21 Elo Power.Weight: 104.3 kg. Height/Length: 65 inches. BMI: 38.3. --20:19 02/17/21 Elo Power.MedicationsAbilify Oral (Tablet 5 mg) 1 tablet, daily at bedtime, last dose 1999. Atorvastatin Calcium Oral (Tablet 20 mg), daily. Benzonatate Oral (Capsule 100 mg), 3x a day. --20:02/17/21 Elo Power Eliquis Oral (Tablet 5 mg), 2x a day. --20:22 02/17/21 Elo Power.AllergiesACE Inhibitors.Acetaminophen. (SWEELS UP--MUST BE PREMEDICATED WITH BENADRYL)Cephalosporins.Motrin.Penicillins.Sudafed. --20:02/17/21 Elo Power.PROBLEMS:Back Pain. 2 Clinical Report - Nurses [facility] Emergency Department [address] [place] [address] Phone #: ext- [phone] 02/17/2021 20:18 Patient: [...] factors identified. 3 Clinical Report - Nurses [facility] Emergency Department [address] [place] [address] Phone #: ext- [phone] 02/17/2021 20:18 -- [id number] Sex: F : 1980 Age: 41y SKIN [...] by RN. 4 Clinical Report - Nurses [facility] Emergency Department [address] [place] [address] Phone #: ext- [phone] 02/17/2021 20:18 Patient: ELGIN KOO Sex: F [...] bandaid applied. --22:08 02/17/21 Claritza Amezquita R.N. [place] Coma Scale: 15- eyes open- spontaneous (4); [...] The patient was discharged by the physician shipping assistant. She was discharged home and accompanied by financial operations clerk. She left via private vehicle. Media Marketing Director driving. ( PT instructed not to drive [...] Amezquita R.N. 5 Clinical Report - Nurses [facility] Emergency Department [address] [place] [address] Phone #: ext- [phone] 02/17/2021 20:18 Patient: ELGIN KOO Sex: F : 1980 Age: 41y Name Value Range Interpretation Code Description Data Rhonda rce(s) Supporting Document(s) ID Date Data Source [id number] 02/17/2021 08:20:00 PM EDT [facility] 1 Clinical Report - Physicians/Mid Levels [facility] Emergency Department [address] [place] [address] Phone #: ext- [phone] 02/17/2021 20:18 Patient: [...] and ibuprofen. States she was just at [facility] but didn't want to wait). Is [...] Roast Beef Sub on the wayhere from [facility]). The vomiting has occurred twice.PAST HISTORYProblems:Back Pain.Seizure Disorder. (Stress induced)DVT - Deep Venous Thrombosis.Hypertension.Fibromyalgia.Other Disease.Myofascial Strain. Additional Surgeries: CERVICAL CANCER. . Dental Surgery. Hubbell filter. Partial hysterectomy. Previous Abdominal Surgery. 2 Clinical Report - Physicians/Mid [facility] Emergency Department [address] [place] [address] Phone #: ext- [phone] 02/17/2021 20:18 Patient: [...] Clear 3 Clinical Report - Physicians/Mid Levels [facility] Emergency Department [address] [place] [address] Phone #: ext- [phone] 02/17/2021 20:18 Patient: [...] PROCEDURAL CONTROL VALID ){ KIT LOT # [id number] ){ KIT EXP DATE 06/07/21 )The Strep [...] asthma. 4 Clinical Report - Physicians/Mid Levels [facility] Emergency Department [address] [place] [address] Phone #: ext- [phone] 02/17/2021 20:18 Patient: ELGIN KOO Sex: F [...] Dispense 1 pack. Refills: 0. Substitution permitted. [facility] [address] [place] [address]. . azithromycin 250 mg tablet -- Take one tablet daily for 4 days, Dispense 4 tablet. Refills: 0. Substitution permitted. [facility] [address] [place] [address]. . albuterol sulfate HFA 90 mcg/actuation aerosol inhaler Inhale 2 puff four times a day -- Dispense 8.5 gram. Refills: 0. Substitution permitted. [facility] [address] [place] [address] ; [place] [address]. . Follow-up: Follow up with your doctor in two days. Call for the next available appointment. Reason for referral: evaluation and treatment. Summary of care provided to patient. Understanding of the discharge instructions verbalized by patient.(Electronically signed by MOSHE Lux 02/17/2021 22:08) 5Clinical Report - Physicians/Mid Levels [facility] Emergency Department [address] [place] [address] Phone #: ext- [phone] 02/17/2021 20:18 Patient: ELGIN KOO Sex: F : 1980 Age: 41y Name Value Range Interpretation Code Description Data Rhonda rce(s) Supporting Document(s) ID Date Data Source [id number] 02/17/2021 09:13:00 PM EDT [facility] Name Value Range Interpretation Code Description Data Rhonda rce(s) Supporting Document(s) [facility] COL[facility] yellow NORMAL: Yellow [facility] CLARITY clear NORMAL: Clear [facility] Specific gravity of Urine by Test strip 1.015 1.001 - 1.030 [facility] pH 6 5 - 9 [facility] al Glucose [Mass/volume] in Urine by Test strip NORM NORMAL: Negat [facility] Bilirubin.total [Presence] in Urine by Test strip NEG NORMAL: Negative [facility] Ketones [Presence] in Urine by Test strip NEG NORMAL: Negative [facility] Protein [Mass/volume] in Urine by Test strip NEG NORMAL: Negat [facility] Nitrite [Presence] in Urine by Test strip NEG NORMAL: Negative [facility] BLOOD 150 NORMAL: Negative A [facility] LEUK EST NEG NORMAL: Negative [facility] Urobilinogen [Mass/volume] in Urine by Test strip NOR less emily n 1.0 mg/dL [facility] MICROSCOPIC See Below [facility] ital WBC 1 - [address]: [address] [facility] Erythrocytes [#/volume] in Urine by Test strip 0 - 1 NORMAL: NON E SEEN [facility] EPITHELIAL MANY NORMAL: NONE SEEN [facility] Amorphous sediment [Presence] in Urine sediment by Light madi roscopy RARE NORMAL: NONE SEEN [facility] ID Date Data Source [id number] 02/17/2021 09:05:00 PM EDT [facility] Name Value Range Interpretation Code Description Data Rhonda rce(s) Supporting Document(s) RAPID STREP NEGATIVE NORMAL: NEGATIVE [facility] RAPID STREP REENTER NEGATIVE NORMAL: NEGATIVE [facility] { PROCEDURAL CONTROL VALID ){ KIT LOT # [id number] ){ KIT EXP DATE 06/07/21 )The Strep [...] basis for treatment. ID Date Data Source [id number] 02/10/2021 11:55:00 PM EDT [facility] 1 OrderSheet [facility] Emergency Department [address] [place] [address] Phone #: ext- [phone] 02/10/2021 23:55 Patient: ELGIN KOO Sex: F : 1980 Age: 41yWEIGHT:106.5 kg (S)ALLERGIES: KOSTA Inhibitors, Acetaminophen, Cephalosporins, Motrin, Penicillins, SudafedCHIEF COMPLAINT: abdominal painDIAGNOSIS: Abdominal pain, ColitisLAB ORDERSOrder Description Priority Entered Acknowledged InitialedCBC w Diff STAT 23:57 02/10/2021 00:15 02/11/2021 Linda Black MD; Raul Marquez R.N.CMP STAT 23:57 02/10/2021 00:15 02/11/2021 Linad Black MD; Raul Marquez R.N.Lactic Acid STAT [...] STAT 23:57 02/10/2021 00:00 02/11/2021ontrast Only Linda Black MD; Raul Marquez(Oxygen?(No)) R.NAshley(IV?(Yes)) NOTES: generalized Reason for Study: Abdominal PainMEDICATION/IV/DRIP/FLUID ORDERSOrder Description Priority Entered Acknowledged InitialedIV NS 1000 mL 23:57 02/10/2021 00:31 02/11/2021 2 OrderSheet [facility] Emergency Department [address] [place] [address] Phone #: ext- [phone] 02/10/2021 23:55 Patient: ELGIN KOO Sex: F [...] rce(s) Supporting Document(s) ID Date Data Source [id number] 02/10/2021 11:55:00 PM EDT [facility] 1 Medication Reconciliation Report [facility] Emergency Department [address] [place] [address] Phone #: ext- [phone] 02/10/2021 23:55 Patient: [...] -- Dispense 20 tablet. Refills: 0. Substitution permitted.[facility] [id number] [facility] ; [place] [address]. FaxNumber: .Cipro 500 mg tablet Take 1 tablet twice a day as directed for 10 days -- Dispense 20 tablet. Refills: 0.Substitution permitted.[facility] [address] [facility] ; [place] [address]. FaxNumber: . -- Linda Black MD 2 Medication Reconciliation Report [facility] Emergency Department [address] [place] [address] Phone #: ext- [phone] 02/10/2021 23:55 Patient: ELGIN KOO Sex: Jamaal : 1980 Age: 41y Name Value Range Interpretation Code Description Data Rhonda rce(s) Supporting Document(s) ID Date Data Source [id number] 02/10/2021 11:55:00 PM EDT [facility] 1 Medication Administration Record [facility] Emergency Department [address] [place] [address] Phone #: ext- [phone] 02/10/2021 23:55 Patient: ELGIN KOO Sex: F : 1980 Age: 41yWeight: 106.5 kgHeight/Length: 65 inBMI: 39.1ALLERGIES: KOSTA Inhibitors, Acetaminophen, Cephalosporins, Motrin, Penicillins, Sudafed Date/Time Medication Administered Medication OrderedStart NS [IV] IV NS 1000 mL Bolus : Bolus [id number]:31 02/11/2021 Dose: IV Fluids mL (X1)Raul Marquez [...] rce(s) Supporting Document(s) ID Date Data Source [id number] 02/10/2021 11:55:00 PM EDT [facility] 1 General Instructions [facility] Emergency Department [address] [place] [address] Phone #: ext- [phone] 02/10/2021 23:55 Patient: ELGIN KOO Sex: F [...] -- Dispense 20 tablet. Refills: 0. Substitution permitted.[facility] [id number] [facility] ; [place] [address]. FaxNumber: .Cipro 500 mg tablet Take 1 tablet twice a day as directed for 10 days -- Dispense 20 tablet. Refills: 0.Substitution permitted.[facility] [id number] [facility] ; [place] [address]. FaxNumber: .Follow-up:Jamaal knapp up with your doctor in two days even if well. Call for an appointment. Reason for referral: evaluation.Summary of care provided to patient via paper.Understanding of the discharge instructions verbalized.Follow-up with: [facility], , , [address] [place] [address], [facility] Follow up in two days even if well. Call for an appointment. Reason for referral: evaluation. Summary of 2 General Instructions [facility] Emergency Department [address] [place] [address] Phone #: ext- [phone] 02/10/2021 23:55 Patient: ELGIN KOO Sex: F [...] on how things go, 3 General Instructions [facility] Emergency Department [address] [place] [address] Phone #: ext- [phone] 02/10/2021 23:55 Patient: [...] begin to improve in thenext 24 hours.Call [phone] if any of these occur: 4 General Instructions [facility] Emergency Department [address] [place] [address] Phone #: ext- [phone] 02/10/2021 23:55 Patient: ELGIN KOO Sex: F [...] or water and you are getting dehydrated [phone] [employer]. [address] [place] [address]. All rights reserved. This information is not intended as asubstitute for professional medical care. Always follow your healthcare professional's instructions.Irritable Bowel Syndrome 5 General Instructions [facility] [place] [address] Phone #: ext- [phone] 02/10/2021 23:55 Patient: [...] that may help you. 6 General Instructions [facility] Emergency Dep artment [address] [place] [address] Phone #: ext- [phone] 02/10/2021 23:55 [id number] Sex: F : 1980 Age: 41y Eat [...] For acute flare-ups of 7 General Instructions [facility] Emergency Department [address] [place] [address] Phone #: uiu- [phone] 02/10/2021 23:55 Patient: ELGIN KOO Sex: F [...] or as directed by your healthcare provider [phone] [employer]. [address] [place] [address], [place] [address]. All rights reserved. This information is not intended as asubstitute for professional medical care. Always follow your healthcare professional's instructions. You have been given the following additional information: Abdominal Pain, Unknown Cause, (Female) Irritable Bowel Syndrome 8 General Instructions [facility] Emergency Department [address] [place] [address] Phone #: ext- [phone] 02/10/2021 23:55 Patient: ELGIN KOO Sex: F : 1980 Age: 41y(Electronically signed by Linda Black MD 02/11/2021 02:45) Name Value Range Interpretation Code Description Data Rhonda rce(s) Supporting Document(s) ID Date Data Source [id number] 02/10/2021 11:55:00 PM EDT [facility] 1 Clinical Report - Nurses [facility] Emergency Department [address] [place] [address] Phone #: ext [phone] 02/10/2021 23:55 Patient: ELGIN KOO Sex: F : 1980 Age: 41yTRIAGEArrived by private vehicle. Historian: patient. Unaccompanied. ( presents with colitis flare up perpatient).Triage time: 00:02 02/11/2021. Acuity: LEVEL 3.Chief Complaint: ABDOMINAL PAIN, NAUSEA and DIARRHEA.Alert. No acute distress.This started last night.Treatment PILATES INSTRUCTOR:(bath ).SEPSIS SCREEN: SEPSIS SCREEN NEGATIVE. No suspected [...] Venous Thrombosis. 2 Clinical Report - Nurses [facility] Emergency Department [address] [place] [address] Phone #: ext- [phone] 02/10/2021 23:55 [id number] Sex: F : 1980 Age: 41yHypertension.Seizure Disorder: [...] Marquez R.N.Interventions 3 Clinical Report - Nurses [facility] Emergency Department [address] [place] [address] Phone #: ext- [phone] 02/10/2021 23:55 Patient: ELGIN KOO Sex: F : 1980 Age: 41y Identification band on patient. To treatment room. --00:06 02/11/21 Raul Marquez R.N.PHYSICAL [id number]:02/11/21. Ambulatory to room.GENERAL / NEURO / PSYCH: [...] Marquez R.N. 4 Clinical Report - Nurses [facility] Emergency Department [address] [place] [address] Phone #: ext- [phone] 02/10/2021 23:55 Patient: [...] Patient verbalized understanding. Written instructions provided in Faroese. The patient was discharged by the physician. She was discharged home. She left ambulatory and via taxi. --02:56 02/11/21 Raul Marquez R.N.Locked/Released at 02/11/2021 03:31 by Raul Marquez R.N. Name Value Range Interpretation Code Description Data Rhonda rce(s) Supporting Document(s) ID Date Data Source [id number] 02/10/2021 11:55:00 PM EDT [facility] 1 Clinical Report - Physicians/Mid Levels [facility] Emergency Department [address] [place] [address] Phone #: ext- [phone] 02/10/2021 23:55 Patient: [...] 1999. 2 Clinical Report - Physicians/Mid Levels [facility] Emergency Department [address] [place] [address] Phone #: ext- [phone] 02/10/2021 23:55 Patient: ELGIN KOO Sex: F [...] - 101) 3 Clinical Report - Physicians/Mid [facility] Emergency Department [address] [place] [address] Phone #: ext- [phone] 02/10/2021 23:55 Patient: ELGIN KOO Sex: F [...] Male GFR Interprentation 20-49 yrs >60 mL/min Mtknsb54-96 yrs >56 mL/min Normal 60-69 yrs >49 mL/min Normal 70-79yrs>42 mL/min Normal 80 and above >35 mL/min Normal Female GFRInterpretation 20-39 yrs >60 mL/min Normal 40-49 yrs >58 mL/minNormal 50-59 yrs >51 mL/min Normal 60-69 yrs >45 mL/min Kpyogg04-77 yrs >39 mL/min Normal 80 and above >32 mL/min NormalLactic Acid: (JULI: 02/11/2021 00:15) ( MsgRcvd 02/11/2021 00:32) Final results Test Result Flag Units (Reference) LACTIC ACID 1.6 MMOL/L (0.2 - 2.2) 4 Clinical Report - Physicians/Mid [facility] Emergency Department [address] [place] [address] Phone #: ext- [phone] 02/10/2021 23:55 [id number] Sex: F : 1980 Age: 41yLipase: (JULI: 02/11/2021 00:15) ( MsgRcvd 02/11/2021 00:43) Final results Test Result Flag Units (Reference) LIPASE 22 U/L (13 - 60)Magnesium: (JULI: 02/11/2021 00:15) ( MsgRcvd 02/11/2021 00:43) Final results Test Result Flag Units (Reference) MAGNESIUM 1.8 MG/DL (1.7 - 2.2)Urinalysis: (JULI: 02/11/2021 00:25) ( [facility] 02/11/2021 00:37) Final results Test Result [...] IV Contrast Only: (JULI: 02/10/2021 23:57) ( [facility] 02/11/2021 02:21) Finalresults Exam CT ABD //T// PELVIS W/ [place] [address] ---------NAME--------- NUMBER SEX AGE ADMIT DISC. XRAY# F/C TYPE HANANE El [id number] F 41 02/10/21 [id number] E/R DATE OF : 1980 M/R# [id number] #: [id number] TR-04 LOCATION: EMERGENCY DEPT TRANSCRIBED: 02/11/21 2:[address] ABD //T// PELVIS W/ IV ONLY [id number] COMPLETED:02/11/21 1:02 [facility] [id number] Reason(s): Abdominal Pain PHYS ICIAN: COONEYNORM R A D I O L O G Y R E P O R T PATIENT HISTORY: Fazal avalos Joshua - 02/11/2021 12:52:46 AM abd pain accumulated dlp 1298.4 mGy*cm est dlp 1287.5 mGy*cm Isovue 370 75mL lot [id number] NOVEMBER 2022, HYSTERECTOMY 12/27/2020. Time Out performed. Correct patient with 2 identifiers, type and amount of 5 Clinical Report - Physicians/Mid Levels [facility] Emergency Department [address] [place] [address] Phone #: ext- [phone] 02/10/2021 23:55 Patient: ELGIN KOO Sex: F : 1980 Age: 41ycontrast used, correct body part and side all verified prior to examination.-JJH/ ABD/PEL (DICOM Hx)EXAM: CT Abdomen and Pelvis with IV contrastCLINICAL HISTORY: Fazal Avalos Joshua - 02/11/2021 12:52:46 AMabd pain accumulated dlp 1298.4 mGy*cm est dlp 1287.5 mGy*cm Isovue 370 75mL [id number] NOVEMBER 2022, HYSTERECTOMY 12/27/2020. Time Out performed. [...] intravenous contrast. With; Isovue 370 75mL lot [id number]: None provided.FINDINGS:LUNG BASES: The lung bases appear [...] reconstructivetechniques. 6 Clinical Report - Physicians/Mid Levels [facility] Emergency Department [address] [place] [address] Phone #: ext- [phone] 02/10/2021 23:55 Patient: [...] Dispense 20 tablet. Refills: 0. Substitution permitted. [employer] # [address] [place] [address]. . Cipro 500 mg tablet Take 1 tablet twice a day as directed for 10 days -- Dispense 20 tablet. Refills: 0. Substitution permitted. [employer] # [facility] [place] [address]. 7 Clinical Report - Physicians/Mid Levels [facility] Emergency Department [address] [place] [address] Phone #: ext- [phone] 02/10/2021 23:55 Patient: ELGIN KOO Sex: F : 1980 Age: 41y . Follow-up: Follow up with your doctor in two days even if well. Call for an appointment. Reason for referral: evaluation. Summary of care provided to patient via paper. Understanding of the discharge instructions verbalized. Follow-up with: [facility], , , [address] [place] [address], [address] Follow up in two days even if well. Call for an appointment. Reason for referral: evaluation. Summary of care provided to patient via paper.(Electronically signed by Linda Black MD 02/11/2021 02:45) Name Value Range Interpretation Code Description Data Rhonda rce(s) Supporting Document(s) ID Date Data Source [id number] 02/11/2021 02:20:00 AM EDT [address] [address] ---------NAME--------- NUMBER SEX AGE ADMIT DISC. XRAY# F/C TYPE HANANE El [id number] F 41 02/10/21 [id number] [id number] E/R DATE OF : 1980 M/R# [id number] #: [id number] TR-04 LOCATION: EMERGENCY DEPT TRANSCRIBED: 02/11/21 2:[address] ABD //T// PELVIS W/ IV ONLY [id number] COMPLETED:02/11/21 1:02 [facility] [id number] Reason(s): Abdominal Pain PHYSICIAN: ASHOK======= R A D I O L O G Y R E P O R T PATIENT HISTORY:Fazal avalos Joshua - 02/11/2021 12:52:46 AMabd pain accumulated dlp 1298.4 mGy*cm est dlp 1287.5 mGy*cm Isovue 370 75mL [id number] NOVEMBER 2022, HYSTERECTOMY 12/27/2020.Time Out performed. Correct patient with 2 identifiers, type and amount ofcontrast used, correct body part and side all verified prior to examination.-JJH/ ABD/PEL (DICOM Hx)EXAM: CT Abdomen and Pelvis with IV contrastCLINICAL HISTORY: Fazal Avalos Joshua - 02/11/2021 12:52:46 AMabd pain accumulated dlp 1298.4 mGy*cm est dlp 1287.5 mGy*cm Isovue 370 75mL [id number] NOVEMBER 2022, HYSTERECTOMY 12/27/2020. Time Out performed. [...] intravenous contrast. With; Isovue 370 75mL lot [id number] NovemberOMPARISON: None provided.FINDINGS:LUNG BASES: The lung bases [...] rce(s) Supporting Document(s) ID Date Data Source [id number] 02/11/2021 12:36:00 AM EDT [facility] Name Value Range Interpretation Code Description Data Rhonda rce(s) Supporting Document(s) [facility] COL[facility] yellow NORMAL: Yellow [facility] CLARITY hazy NORMAL: Clear [facility] Specific gravity of Urine by Test strip 1.010 1.001 - 1.030 [facility] pH 6 5 - 9 [facility] Glucose [Mass/volume] in Urine by Test strip NORM NORMAL: Negat [facility] Bilirubin.total [Presence] in Urine by Test strip NEG NORMAL: Negative [facility] Ketones [Presence] in Urine by Test strip NEG NORMAL: Negative [facility] Protein [Mass/volume] in Urine by Test strip NEG NORMAL: Negat [facility] Nitrite [Presence] in Urine by Test strip NEG NORMAL: Negative [facility] BLOOD 25 NORMAL: Negative [facility] LEUK EST 25 NORMAL: Negative [facility] Urobilinogen [Mass/volume] in Urine by Test strip NOR less emily n 1.0 mg/dL [facility] MICROSCOPIC See Below [facility] ital WBC 3 - [address]: [address] [facility] Erythrocytes [#/volume] in Urine by Test strip 1 - 3 NORMAL: NON E SEEN [facility] EPITHELIAL MODERATE NORMAL: NONE SEEN [facility] Bacteria [Presence] in Urine sediment by Light microscopy 1+ SMALL NORMAL: NONE SEEN [facility] Mucus [Presence] in Urine sediment by Light microscopy 1+ NOR MAL: NONE SEEN [facility] ID Date Data Source [id number] 02/11/2021 12:47:00 AM EDT [facility] Name Value Range Interpretation Code Description Data Rhonda rce(s) Supporting Document(s) COMPREHENSIVE METABOLIC PANEL [facility] COMPREHENSIVE METABOLIC PANEL Sodium [Moles/volume] in Serum or Plasma 138 mEq/L 134 - 153 [facility] Potassium [Moles/volume] in Serum or Plasma 3.8 mEq/L 3.6 - 5.0 [facility] Chloride [Moles/volume] in Serum or Plasma 106 mEq/L 98 - 107 [facility] Carbon dioxide, total [Moles/volume] in Serum or Plasma 25 MEQ/L 22 - 30 [facility] Glucose [Mass/volume] in Serum or Plasma 101 MG/DL 70 - 99 H [facility] BUN 6 MG/DL 7 - 21 L [facility] al Creatinine [Mass/volume] in Serum or Plasma 0.7 MG/DL 0.7 - 1.5 [facility] BUN/CREAT 9 8 - 27 [facility] Protein [Mass/volume] in Serum or Plasma 6.2 G/DL 6.3 - 8.2 L [facility] Albumin [Mass/volume] in Serum or Plasma 4.2 G/DL 3.9 - 5.0 [facility] Globulin [Mass/volume] in Serum by calculation 2.0 GM/DL 2.4 - 3.2 L [facility] A/G RATIO 2.1 0.8 - 2.0 H [facility] Calcium [Mass/volume] in Serum or Plasma 9.0 MG/DL 8.4 - 10.2 [facility] Bilirubin.total [Mass/volume] in Serum or Plasma <0.7 MG/DL 0.2 - 1.3 [facility] Alkaline phosphatase [Enzymatic activity/volume] in Serum or Plasma 67 U/L 38 - 126 [facility] Aspartate aminotransferase [Enzymatic activity/volume] in Serum or Plasma 11 U/L 5 - 40 [facility] Alanine aminotransferase [Enzymatic activity/volume] in Seru m or Plasma 9 U/L 7 - 56 [facility] Anion gap 3 in Serum or Plasma 7.0 mmol/L 8.0 - 16.0 L [facility] AGE 41 yrs [facility] al NON-AA GFR >60 mL/min [facility] ital AFR AMER GFR >60 mL/min [facility] Male GFR In [...] >32 mL/min Normal ID Date Data Source [id number] 02/11/2021 12:43:00 AM EDT [facility] Name Value Range Interpretation Code Description Data Rhonda rce(s) Supporting Document(s) Magnesium [Mass/volume] in Serum or Plasma 1.8 MG/DL 1.7 - 2.2 [facility] ID Date Data Source [id number] 02/11/2021 12:43:00 AM EDT [facility] Name Value Range Interpretation Code Description Data Rhonda rce(s) Supporting Document(s) Lipase [Enzymatic activity/volume] in Serum or Plasma 22 U/L 13 - 60 [facility] ID Date Data Source [id number] 02/11/2021 12:37:00 AM EDT [facility] Name Value Range Interpretation Code Description Data Rhonda rce(s) Supporting Document(s) CBC W/AUTOMATED DIFF [facility] COMPLETE BLOOD COUNT Leukocytes [#/volume] in Blood by Automated count 5.9 10^3/uL 4.2 - 1 1.0 [facility] Erythrocytes [#/volume] in Blood by Automated count 4.59 10^6/uL 4. 20 - 5.40 [facility] Hemoglobin [Mass/volume] in Blood 14.2 g/dL 12.0 - 16.0 [facility] Hematocrit [Volume Fraction] of Blood by Automated count 39.7 % 3 7.0 - 47.0 [facility] Erythrocyte mean corpuscular volume [Entitic volume] by Auto mated count 86.5 fL 81.0 - 101 [facility] Erythrocyte mean corpuscular hemoglobin [Entitic mass] by Automated count 30.9 pg 27.0 - 34.0 [facility] Erythrocyte mean corpuscular hemoglobin concentration [Mass/volume] by Automated count 35.8 g/dL 31.0 - 36.0 [facility] Erythrocyte distribution width [Ratio] by Automated count 13.0 % 11.5 - 14.5 [facility] Platelets [#/volume] in Blood by Automated count 181 10^3/uL 150 - 45 0 [facility] Platelet mean volume [Entitic volume] in Blood by Automated count 9.9 fL 7.4 - 10.4 [facility] Neutrophils/100 leukocytes in Blood by Automated count 60.6 % 37. 0 - 80.0 [facility] Lymphocytes/100 leukocytes in Blood by Manual count 31.1 % 25.0 - 40.0 [facility] Monocytes/100 leukocytes in Blood by Automated count 5.6 % 3.0 - 8.0 [facility] Eosinophils/100 leukocytes in Blood by Automated count 2.0 % 0.0 - 7.0 [facility] Basophils/100 leukocytes in Blood by Automated count 0.5 % 0.0 - 2.5 [facility] %IG 0.2 % 0.0 - 0.0 H [facility] %NRBC 0.0 % 0.0 - 0.0 [facility] Neutrophils [#/volume] in Blood by Automated count 3.58 10^3/uL 2.00 - 6.90 [facility] Lymphocytes [#/volume] in Blood by Automated count 1.84 10^3/uL 0.60 - 3.40 [facility] Monocytes [#/volume] in Blood by Automated count 0.33 10^3/uL 0.00 - 0.90 [facility] Eosinophils [#/volume] in Blood by Automated count 0.12 10^3/uL 0.00 - 0.70 [facility] Basophils [#/volume] in Blood by Automated count 0.03 10^3/uL 0.00 - 0.20 [facility] #IG 0.01 10^3/uL 0.00 - 0.10 [facility] #NRBC 0.00 10^3/uL 0.00 - 0.00 [facility] MANUAL DIFF NOT INDICATED [facility] RBC MORPH NOT INDICATED [facility] ID Date Data Source [id number] 02/11/2021 12:32:00 AM EDT [facility] Name Value Range Interpretation Code Description Data Rhonda rce(s) Supporting Document(s) Lactate [Moles/volume] in Serum or Plasma 1.6 MMOL/L 0.2 - 2.2 [facility] ID Date Data Source [id number] 12/22/2020 08:20:00 AM EDT [facility] Name Value Range Interpretation Code Description Data Rhonda rce(s) Supporting Document(s) SARS-CoV-2 (COVID-19) RNA [Presence] in Respiratory specimen by MARTA with probe detection Not Detected [facility] This lab was ordered by [facility] and reported by [employer]. ID Date Data Source [id number] 12/13/2020 04:26:00 PM EDT [facility] 1 OrderSheet [facility] Emergency Department [address] [place] [address] Phone #: ext- [phone] 12/13/2020 16:23 Patient: [...] Description Priority Entered Acknowledged Initialed 2 OrderSheet [facility] Emergency Department [address] [place] [address] Phone #: ext- [phone] 12/13/2020 16:23 Patient: ELGIN KOO Sex: F : 1980 Age: 40y[Electronically signed by Deanna Resendez R.N. (18:24 12/13/2020)][Electronically signed by Balaji Garcia (19:47 12/13/2020)][Electronically locked by Deanna Resendez R.N. (18:24 12/13/2020)] Name Value Range Interpretation Code Description Data Rhonda rce(s) Supporting Document(s) ID Date Data Source [id number] 12/13/2020 04:26:00 PM EDT [facility] 1 Medication Reconciliation Report [facility] Emergency Department [address] [place] [address] Phone #: ext- [phone] 12/13/2020 16:23 Patient: [...] rce(s) Supporting Document(s) ID Date Data Source [id number] 12/13/2020 04:26:00 PM EDT [facility] 1 Medication Administration Record [facility] Emergency Department [address] [place] [address] Phone #: ext- [phone] 12/13/2020 16:23 Patient: [...] rce(s) Supporting Document(s) ID Date Data Source [id number] 12/13/2020 04:26:00 PM EDT [facility] 1 General Instructions [facility] Emergency Department [address] [place] [address] Phone #: [phone] srx- [phone] 12/13/2020 16:23 Patient: ELGIN KOO Sex: F [...] of Abdominal Pain (Female) 2 General Instructions [facility] Emergency Department [address] [place] [address] Phone #: ext- [phone] 12/13/2020 16:23 Patient: [...] for taking these medicines. 3 General Instructions [facility] Emergency Department [address] [place] [address] Phone #: ext- [phone] 12/13/2020 16:23 [id number] Sex: F : 1980 [facility]: 40[facility] Rest as much as you [...] begin to improve in thenext 24 hours.Call [phone] if any of these occur: Trouble breathing Confusion Fainting or loss of consciousness Rapid heart rate 4 General Instructions [facility] Emergency Department [address] [place] [address] Phone #: ext- [phone] 12/13/2020 16:23 Patient: ELGIN KOO Sex: F [...] or water and you are getting dehydrated [id number] [employer]. [address] [place] [address]. All rights reserved. This information is not intended as asubstitute for professional medical care. Always follow your healthcare professional's instructions. You have been given the following additional information: Abdominal Pain, Unknown Cause, (Female)(Electronically signed by Garcia Balaji 12/13/2020 19:47) Name Value Range Interpretation Code Description Data Rhonda rce(s) Supporting Document(s) ID Date Data Source [id number] 12/13/2020 04:26:00 PM EDT [facility] 1 Clinical Report - Nurses [facility] Emergency Department [address] [place] [address] Phone #: ext- [phone] 12/13/2020 16:23 Patient: [...] is described as located in the RLQ.Treatment PILATES INSTRUCTOR:None.SEPSIS SCREEN: SIRS SCREEN NEGATIVE. SEPSIS SCREEN NEGATIVE. [...] 1 tablet, daily at bedtime, last dose [id number] 1999. --16:33 12/13/20 Deanna Resendez R.N. Benzonatate [...] Venous Thrombosis.Fibromyalgia. 2 Clinical Report - Nurses [facility] Emergency Department [address] [place] [address] Phone #: ext- [phone] 12/13/2020 16:23 [id number] Sex: F : 1980 Age: 40yBack Pain.Myofascial [...] R.N.FAMILY HX: 3 Clinical Report - Nurses [facility] Emergency Department [address] [place] [address] Phone #: ext- [phone] 12/13/2020 16:23 Patient: ELGIN KOO [facility]#: [id number] Sex: F : 1980 Age: 40y Mother: [...] Patient verbalized understanding. Written instructions provided in Faroese. The patient was discharged home and unaccompanied at time of discharge. She left ambulatory and via private vehicle. Patient driving. --18:24 12/13/20 Deanna Resendez R.N. 4 Clinical Report - Nurses [facility] Emergency Department [address] [place] [address] Phone #: ext- [phone] 12/13/2020 16:23 [id number] Sex: F : 1980 Age: 40y 18:23 12/13/20. BP: 120/74. MAP: 89. HR: 75. RR: 18. O2 saturation: 100%. Temp: 98.6 F. Pain level now: 11/02. --18:24 12/13/20 Deanna Resendez R.N. Departure time: 18:24 12/13/2020. --18:24 12/13/20 Deanna Resendez R.N.Locked/Released at 12/13/2020 18:24 by Deanna Resendez R.N. Name Value Range Interpretation Code Description Data Rhonda rce(s) Supporting Document(s) ID Date Data Source [id number] 12/13/2020 04:26:00 PM EDT [facility] 1 Clinical Report - Physicians/Mid Levels [facility] Emergency Department [address] [place] [address] Phone #: ext- [phone] 12/13/2020 16:23 Patient: ELGIN KOO Sex: F [...] a health care provider. ( Went to [facility] ED but waited too long so she [...] surgery. Additional Surgeries: CERVICAL CANCER. C- Section. Hubbell filter. Partial hysterectomy. 2 Clinical Report - Physicians/Mid Levels [facility] Emergency Department [address] [place] [address] Phone #: ext- [phone] 12/13/2020 16:23 [id number] Sex: F : 1980 Age: 40y Medications: [...] (Reference) 3 Clinical Report - Physicians/Mid Levels [facility] Emergency Department [address] [place] [address] Phone #: ext- [phone] 12/13/2020 16:23 Patient: [...] PRESUMPTIVE POSITIVE CONFIRMATION WILL BE PERFORMED AT [facility].Beta-HCG, Qual Urine: (JULI: 12/13/2020 16:40) ( DegRcvd 12/13/2020 17:38) Final results Test Result Flag Units (Reference) HCG URINE QUAL NEGATIVE (NORMAL: NEGAT HCG URINE QL REENTER NEGATIVE (NORMAL: NEGAT { KIT LOT # [id number] ){ KIT EXP [id number] ){ PROCEDURAL CONTROL VALID)CBC w Diff: (JULI: 12/13/2020 17:20) ( DegRcvd 12/13/2020 17:39) Final results Test Result Flag [...] INDICATED 4 Clinical Report - Physicians/Mid Levels [facility] Emergency Department [address] [place] [address] Phone #: ext- [phone] 12/13/2020 16:23 Patient: ELGIN KOO [facility]#: [id number] Sex: F : 1980 Age: 40y BMP: [...] NONE. 5 Clinical Report - Physicians/Mid Levels [facility] Emergency Department [address] [place] [address] Phone #: ext- [phone] 12/13/2020 16:23 Patient: ELGIN KOO Sex: F : 1980 Age: 40yPROGRESS AND PROCEDURESCourse of Care: 17:16 12/13/20. Right pelvic pain appears to be ongoing for over 3 months. Multipleallergies but she states she hasn't taken anything for pain. Ultrasound done 11/04 shows enlarged uteruswith left renal cyst. normal bilateral ovarian cysts 17:44 12/13/20. Records from [facility] indicate she never had hysterectomy, and in [...] rce(s) Supporting Document(s) ID Date Data Source [id number] 12/13/2020 05:56:00 PM EDT [facility] Name Value Range Interpretation Code Description Data Rhonda rce(s) Supporting Document(s) BASIC METABOLIC PANEL [facility] BASIC METABOLIC PANEL Sodium [Moles/volume] in Serum or Plasma 138 mEq/L 134 - 153 [facility] Potassium [Moles/volume] in Serum or Plasma 4.0 mEq/L 3.6 - 5.0 [facility] Chloride [Moles/volume] in Serum or Plasma 105 mEq/L 98 - 107 [facility] Carbon dioxide, total [Moles/volume] in Serum or Plasma 25 MEQ/L 22 - 30 [facility] Glucose [Mass/volume] in Serum or Plasma 104 MG/DL 70 - 99 H [facility] BUN 8 MG/DL 7 - 21 [facility] Creatinine [Mass/volume] in Serum or Plasma 0.7 MG/DL 0.7 - 1.5 [facility] BUN/CREAT 11 8 - 27 [facility] Calcium [Mass/volume] in Serum or Plasma 9.0 MG/DL 8.4 - 10.2 [facility] Anion gap 3 in Serum or Plasma 8.0 mmol/L 8.0 - 16.0 [facility] AGE 40 yrs [facility] al AFR AMER GFR >60 mL/min [facility] NON-AA GFR >60 mL/min [facility] ital Male GFR Inter prentation 20-49 yrs [...] >32 mL/min Normal ID Date Data Source [id number] 12/13/2020 05:38:00 PM EDT [facility] Name Value Range Interpretation Code Description Data Rhonda rce(s) Supporting Document(s) CBC W/AUTOMATED DIFF [facility] COMPLETE BLOOD COUNT Leukocytes [#/volume] in Blood by Automated count 5.2 10^3/uL 4.2 - 1 1.0 [facility] Erythrocytes [#/volume] in Blood by Automated count 4.30 10^6/uL 4. 20 - 5.40 [facility] Hemoglobin [Mass/volume] in Blood 13.6 g/dL 12.0 - 16.0 [facility] Hematocrit [Volume Fraction] of Blood by Automated count 37.9 % 3 7.0 - 47.0 [facility] Erythrocyte mean corpuscular volume [Entitic volume] by Auto mated count 88.1 fL 81.0 - 101 [facility] Erythrocyte mean corpuscular hemoglobin [Entitic mass] by Automated count 31.6 pg 27.0 - 34.0 [facility] Erythrocyte mean corpuscular hemoglobin concentration [Mass/volume] by Automated count 35.9 g/dL 31.0 - 36.0 [facility] Erythrocyte distribution width [Ratio] by Automated count 13.2 % 11.5 - 14.5 [facility] Platelets [#/volume] in Blood by Automated count 187 10^3/uL 150 - 45 0 [facility] Platelet mean volume [Entitic volume] in Blood by Automated count 9.4 fL 7.4 - 10.4 [facility] Neutrophils/100 leukocytes in Blood by Automated count 57.6 % 37. 0 - 80.0 [facility] Lymphocytes/100 leukocytes in Blood by Manual count 33.8 % 25.0 - 40.0 [facility] Monocytes/100 leukocytes in Blood by Automated count 6.2 % 3.0 - 8.0 [facility] Eosinophils/100 leukocytes in Blood by Automated count 1.6 % 0.0 - 7.0 [facility] Basophils/100 leukocytes in Blood by Automated count 0.6 % 0.0 - 2.5 [facility] %IG 0.2 % 0.0 - [facility] % 0.0 - 0.0 [facility] Neutrophils [#/volume] in Blood by Automated count 2.97 10^3/uL 2.00 - 6.90 [facility] Lymphocytes [#/volume] in Blood by Automated count 1.74 10^3/uL 0.60 - 3.40 [facility] Monocytes [#/volume] in Blood by Automated count 0.32 10^3/uL 0.00 - 0.90 [facility] Eosinophils [#/volume] in Blood by Automated count 0.08 10^3/uL 0.00 - 0.70 [facility] Basophils [#/volume] in Blood by Automated count 0.03 10^3/uL 0.00 - 0.20 [facility] #IG 0.01 10^3/uL 0.00 - 0.10 [facility]ital #NRBC 0.00 10^3/uL 0.00 - 0.00 [facility] MANUAL DIFF NOT INDICATED [facility] RBC MORPH NOT INDICATED [facility] ID Date Data Source [id number] 12/13/2020 06:04:00 PM EDT [facility] Name Value Range Interpretation Code Description Data Rhonda rce(s) Supporting Document(s) DRUG SCREEN URINE [facility] URINE DRUG SCREEN Amphetamine [Presence] in Urine by Screen method NEGATIVE NORMAL: N EGATIVE [facility] BARBITURATES NEGATIVE NORMAL: NEGATIVE [facility] BENZO NEGATIVE NORMAL: NEGATIVE [facility] COCAINE NEGATIVE NORMAL: NEGATIVE [facility] Tetrahydrocannabinol [Presence] in Urine NEGATIVE NORMAL: NEGATIVE [facility] OPIATES NEGATIVE NORMAL: NEGATIVE [facility] Phencyclidine [Presence] in Urine by Screen method NEGATIVE NOR MAL: NEGATIVE [facility] \\BLDo\\URINE DRUG SCR EEN INTERPRETATION\\BLDx\\ THE CUTOFFF LEVELS FOR DETECTION ARE FOLLOWS: AMPHETAMINES 1000 ng/ml BARBITUARATES 200 ng/ml BENZODIAZEPINES 100 ng/ml THC 50 ng/ml PHENCYCLIDINE 25 ng/ml OPIATES 300 ng/ml COCAINE 300 ng/ml ALL POSITIVES ARE CONSIDERED PRESUMPTIVE POSITIVE CONFIRMATION WILL BE PERFORMED AT PHYSICIAN REQUEST. ID Date Data Source [id number] 12/13/2020 05:38:00 PM EDT [facility] Name Value Range Interpretation Code Description Data Rhonda rce(s) Supporting Document(s) HCG URINE QUAL NEGATIVE NORMAL: NEGATIVE [facility] HCG URINE QL REENTER NEGATIVE NORMAL: NEGATIVE [facility] { KIT LOT # [id number] ){ KIT EXP DATE 05-25-22 ){ PROCEDURAL CONTROL VALID ) ID Date Data Source [id number] 12/13/2020 04:56:00 PM EDT [facility] Name Value Range Interpretation Code Description Data Rhonda rce(s) Supporting Document(s) [facility] S[facility] Clean Catch [facility] ital COLOR yellow NORMAL: Yellow [facility] CLARITY clear NORMAL: Clear [facility] Specific gravity of Urine by Test strip 1.015 1.001 - 1.030 [facility] pH 6.5 5 - 9 [facility] Glucose [Mass/volume] in Urine by Test strip NORM NORMAL: Negat [facility] Bilirubin.total [Presence] in Urine by Test strip NEG NORMAL: Negative [facility] Ketones [Presence] in Urine by Test strip NEG NORMAL: Negative [facility] Protein [Mass/volume] in Urine by Test strip NEG NORMAL: Negat [facility] Nitrite [Presence] in Urine by Test strip NEG NORMAL: Negative [facility] BLOOD 50 NORMAL: Negative [facility] Leukocyte esterase [Presence] in Urine by Test strip 25 LINDA L: Negative [facility] Urobilinogen [Mass/volume] in Urine by Test strip NOR less emily n 1.0 mg/dL [facility] MICROSCOPIC See Below [facility] ital WBC 1 - [address]: [address] [facility] Erythrocytes [#/volume] in Urine by Test strip 3 - 5 NORMAL: NON E SEEN [facility] EPITHELIAL MODERATE NORMAL: NONE SEEN [facility] Bacteria [Presence] in Urine sediment by Light microscopy Tr kosta NORMAL: NONE SEEN [facility] ID Date Data Source Pathology Request For Service 11/08/2020 12:00:00 AM EDT eCW 1 ([facility]) Name Value Range Interpretation Code Description Data Rhonda rce(s) Supporting Document(s) GENITOURINARY eCW1 ([facility]) ID Date Data Source WWBC Pelvis non-OB COMPLETE US 11/04/2020 12:00:00 AM EDT eC W1 ([facility]) Name Value Range Interpretation Code Description Data Rhonda rce(s) Supporting Document(s) [facility] Pelvis non-OB COMPLETE US eCW1 ([facility]) ID Date Data Source CHLAMYDIA, GC & TRICH AMP 10/09/2020 12:00:00 AM EDT eCW1 ([facility]) Name Value Range Interpretation Code Description Data Rhonda rce(s) Supporting Document(s) NOT DETECTED NEGATIVE Trichomonas vaginalis ( AMP) eCW1 ([facility]) ID Date Data Source PAP REQUEST FOR SERVICE 10/09/2020 12:00:00 AM EDT eCW1 ([facility]) Name Value Range Interpretation Code Description Data Rhonda rce(s) Supporting Document(s) PAP REQUEST FOR SERVICE eCW1 ( [facility]) ID Date Data Source FREE T4 & TSH PANEL 10/09/2020 12:00:00 AM EDT eCW1 ([facility]) Name Value Range Interpretation Code Description Data Rhonda rce(s) Supporting Document(s) 1.680 0.358-3.740 THYROID STIMULATING HORM ONE eCW1 ([facility]) 1.05 0.76-1.46 FREE T4 eCW1 ([facility]) ID Date Data Source CBC - Complete Blood Count 10/09/2020 12:00:00 AM EDT eCW1 ( [facility]) Name Value Range Interpretation Code Description Data Rhonda rce(s) Supporting Document(s) 5.7 4.0-10.0 WHITE BLOOD COUNT eCW1 ([facility]) 14.8 12.0-15.5 HEMOGLOBIN eCW1 ([facility]) 4.89 4.00-5.40 RED BLOOD COUNT eCW1 ([facility]) 43.4 36.0-47.0 HEMATOCRIT eCW1 ([facility]) 30.3 27.0-33.0 MEAN CORPUSCULAR HEMOGLOB IN eCW1 ([facility]) 88.8 80.0-96.0 MEAN CORPUSCULAR VOLUME e CW1 ([facility]) 34.1 32.0-36.5 MEAN CORPUSCULAR HGB CONC eCW1 ([facility]) 12.9 11.5-14.5 RED CELL DISTRIBUTION WID TH eCW1 ([facility]) 193 150-450 PLATELET COUNT, AUTOMATED eCW1 ([facility]) ID Date Data Source URINE CULTURE 09/24/2020 12:00:00 AM EST eCW1 ([facility]) Name Value Range Interpretation Code Description Data Rhonda rce(s) Supporting Document(s) URINE CULTURE eCW1 ([facility]) ID Date Data Source UA URINALYSIS 09/24/2020 12:00:00 AM EST eCW1 ([facility]) Name Value Range Interpretation Code Description Data Rhonda rce(s) Supporting Document(s) UA URINALYSIS eCW1 ([facility]) ID Date Data Source [id number] 09/23/2020 11:34:00 AM EST [facility] Name Value Range Interpretation Code Description Data Rhonda rce(s) Supporting Document(s) SARS-CoV-2 (COVID 19) NEGATIVE - SARS-CoV-2 (COVID19) [facility] This lab was ordered by [facility] a nd reported by [facility]. ID Date Data Source RESPIRATORY PANEL 09/23/2020 12:00:00 AM EST eCW1 ([facility]) Name Value Range Interpretation Code Description Data Rhonda rce(s) Supporting Document(s) This respiratory PCR panel detects Influenza A H1, H3 and RESPIRATORY PANEL eCW1 ([facility]) ID Date Data Source Basic Metabolic Profile (BMP) 07/05/2020 12:00:00 AM EST eCW 1 ([facility]) Name Value Range Interpretation Code Description Data Rhonda rce(s) Supporting Document(s) 0.91 0.55-1.30 CREATININE FOR GFR eCW1 ([facility]) 6 7-18 BLOOD UREA NITROGEN eCW1 ([facility]) 140 70-100 GLUCOSE, FASTING eCW1 ([facility]) > 60.0 >58 GLOMERULAR FILTRATION RATE eCW 1 ([facility]) 107 98-107 CHLORIDE LEVEL eCW1 ([facility]) 138 136-145 SODIUM LEVEL eCW1 ([facility]) 3.9 3.5-5.1 POTASSIUM SERUM eCW1 ([facility]) 28 21-32 CARBON DIOXIDE LEVEL eCW1 ([facility]) 9.2 8.5-10.1 CALCIUM LEVEL eCW1 ([facility]) ID Date Data Source [id number] 07/04/2020 10:00:00 AM EST [facility] Name Value Range Interpretation Code Description Data Rhonda rce(s) Supporting Document(s) SARS coronavirus 2 RNA [facility] This lab was ordered by [facility] and reported by [facility]. Procedure Social History Code Duration Value Status Description Data Source(s ) Smoking 04/07/2021 12:00:00 AM EDT Current Smoker completed Curre nt Smoker eCW1 ([facility]) Smoking 04/07/2021 12:00:00 AM EDT Current Smoker completed Curre nt Smoker eCW1 ([facility]) Smoking 04/07/2021 12:00:00 AM EDT Current Smoker completed Curre nt Smoker eCW1 ([facility]) Smoking 04/07/2021 12:00:00 AM EDT Current Smoker completed Curre nt Smoker eCW1 ([facility]) Smoking 01/28/2021 12:00:00 AM EDT Current Smoker completed Curre nt Smoker eCW1 ([facility]) Smoking 01/28/2021 12:00:00 AM EDT Current Smoker completed Curre nt Smoker eCW1 ([facility]) Smoking 01/28/2021 12:00:00 AM EDT Current Smoker completed Curre nt Smoker eCW1 ([facility]) Smoking 01/28/2021 12:00:00 AM EDT Current Smoker completed Curre nt Smoker eCW1 ([facility]) Smoking 01/28/2021 12:00:00 AM EDT Current Smoker completed Curre nt Smoker eCW1 ([facility]) Smoking 01/28/2021 12:00:00 AM EDT Current Smoker completed Curre nt Smoker eCW1 ([facility]) Smoking 01/02/2021 12:00:00 AM EDT Current Smoker completed Curre nt Smoker eCW1 ([facility]) Smoking 01/02/2021 12:00:00 AM EDT Current Smoker completed Curre nt Smoker eCW1 ([facility]) Smoking 12/16/2020 12:00:00 AM EDT Current Smoker completed Curre nt Smoker eCW1 ([facility]) Smoking 12/16/2020 12:00:00 AM EDT Current Smoker completed Curre nt Smoker eCW1 ([facility]) Smoking 12/16/2020 12:00:00 AM EDT Current Smoker completed Curre nt Smoker eCW1 ([facility]) Smoking 12/16/2020 12:00:00 AM EDT Current Smoker completed Curre nt Smoker eCW1 ([facility]) Smoking 12/16/2020 12:00:00 AM EDT Current Smoker completed Curre nt Smoker eCW1 ([facility]) Smoking 12/16/2020 12:00:00 AM EDT Current Smoker completed Curre nt Smoker eCW1 ([facility]) Smoking 11/13/2020 12:00:00 AM EDT Current Smoker completed Curre nt Smoker eCW1 ([facility]) Smoking 11/13/2020 12:00:00 AM EDT Current Smoker completed Curre nt Smoker eCW1 ([facility]) Smoking 11/13/2020 12:00:00 AM EDT Current Smoker completed Curre nt Smoker eCW1 ([facility]) Smoking 11/13/2020 12:00:00 AM EDT Current Smoker completed Curre nt Smoker eCW1 ([facility]) Smoking 11/13/2020 12:00:00 AM EDT Current Smoker completed Curre nt Smoker eCW1 ([facility]) Smoking 10/07/2020 12:00:00 AM EDT Current Smoker completed Curre nt Smoker eCW1 ([facility]) Smoking 09/24/2020 12:00:00 AM EST Current Smoker completed Curre nt Smoker eCW1 ([facility]) Smoking 09/24/2020 12:00:00 AM EST Current Smoker completed Curre nt Smoker eCW1 ([facility]) Smoking 09/24/2020 12:00:00 AM EST Current Smoker completed Curre nt Smoker eCW1 ([facility]) Smoking 09/24/2020 12:00:00 AM EST Current Smoker completed Curre nt Smoker eCW1 ([facility]) Smoking 09/03/2020 12:00:00 AM EST Current Smoker completed Curre nt Smoker eCW1 ([facility]) Smoking 09/03/2020 12:00:00 AM EST Current Smoker completed Curre nt Smoker eCW1 ([facility]) Smoking 08/23/2020 12:00:00 AM EST Current Smoker completed Curre nt Smoker eCW1 ([facility]) Smoking 08/23/2020 12:00:00 AM EST Current Smoker completed Curre nt Smoker eCW1 ([facility]) Smoking 08/23/2020 12:00:00 AM EST Current Smoker completed Curre nt Smoker eCW1 ([facility]) Smoking 07/11/2020 12:00:00 AM EST Current Smoker completed Curre nt Smoker eCW1 ([facility]) Smoking 07/11/2020 12:00:00 AM EST Current Smoker completed Curre nt Smoker eCW1 ([facility]) Smoking 07/11/2020 12:00:00 AM EST Current Smoker completed Curre nt Smoker eCW1 ([facility]) Smoking 07/05/2020 12:00:00 AM EST Current Smoker completed Curre nt Smoker eCW1 ([facility]) Smoking 07/05/2020 12:00:00 AM EST Current Smoker completed Curre nt Smoker eCW1 ([facility]) Smoking 07/05/2020 12:00:00 AM EST Current Smoker completed Curre nt Smoker eCW1 ([facility]) Smoking 06/28/2020 12:00:00 AM EST Current Smoker completed Curre nt Smoker eCW1 ([facility]) Smoking 05/30/2020 12:00:00 AM EST Current Smoker completed Curre nt Smoker eCW1 ([facility]) Smoking 05/10/2020 12:00:00 AM EDT Current Smoker completed Curre nt Smoker eCW1 ([facility]) Smoking 05/10/2020 12:00:00 AM EDT Current Smoker completed Curre nt Smoker eCW1 ([facility]) Vital Signs ID Date Data Source UNK Name Value Range Interpretation Code Description Data Source(s) Body weight 226 [lb_av] 226 [lb_av] eCW1 ([facility]) Body height 65.5 [in_i] 65.5 [in_i] eCW1 ([facility]) Body mass index (BMI) [Ratio] 37.03 kg/m2 37.03 kg/m2 eCW1 ([facility]) Systolic blood pressure 122 mm[Hg] 122 mm[Hg] e CW1 ([facility]) Diastolic blood pressure 72 mm[Hg] 72 mm[Hg] eCW1 ([facility]) Body weight 238 [lb_av] 238 [lb_av] eCW1 ([facility]) Body height 65.5 [in_i] 65.5 [in_i] eCW1 ([facility]) Body mass index (BMI) [Ratio] 39 kg/m2 39 kg/ m2 eCW1 ([facility]) Systolic blood pressure 122 mm[Hg] 122 mm[Hg] e CW1 ([facility]) Diastolic blood pressure 78 mm[Hg] 78 mm[Hg] eCW1 ([facility]) Body mass index (BMI) [Ratio] 38.31 kg/m2 38.31 kg/m2 eCW1 ([facility]) Heart rate 106 /min 106 /min eCW1 ([facility]) Respiratory rate 18 /min 18 /min eCW1 ([facility]) Body temperature 97.1 [degF] 97.1 [degF] eCW1 ( [facility]) Systolic blood pressure 110 mm[Hg] 110 mm[Hg] e CW1 ([facility]) Diastolic blood pressure 68 mm[Hg] 68 mm[Hg] eCW1 ([facility]) Body weight 233.8 [lb_av] 233.8 [lb_av] eCW1 ([facility]) Body height 65.5 [in_i] 65.5 [in_i] eCW1 ([facility]) Body weight 237.8 [lb_av] 237.8 [lb_av] eCW1 ([facility]) Body height 65.5 [in_i] 65.5 [in_i] eCW1 ([facility]) Body mass index (BMI) [Ratio] 38.97 kg/m2 38.97 kg/m2 eCW1 ([facility]) Systolic blood pressure 118 mm[Hg] 118 mm[Hg] e CW1 ([facility]) Diastolic blood pressure 78 mm[Hg] 78 mm[Hg] eCW1 ([facility]) Body weight 238.4 [lb_av] 238.4 [lb_av] eCW1 ([facility]) Body height 65.5 [in_i] 65.5 [in_i] eCW1 ([facility]) Body mass index (BMI) [Ratio] 39.06 kg/m2 39.06 kg/m2 eCW1 ([facility]) Systolic blood pressure 118 mm[Hg] 118 mm[Hg] e CW1 ([facility]) Diastolic blood pressure 68 mm[Hg] 68 mm[Hg] eCW1 ([facility]) Body weight 239.2 [lb_av] 239.2 [lb_av] eCW1 ([facility]) Body height 65.5 [in_i] 65.5 [in_i] eCW1 ([facility]) Body mass index (BMI) [Ratio] 39.20 kg/m2 39.20 kg/m2 eCW1 ([facility]) Heart rate 89 /min 89 /min eCW1 ([facility]) Respiratory rate 19 /min 19 /min eCW1 ([facility]) Body temperature 97.0 [degF] 97.0 [degF] eCW1 ( [facility]) Systolic blood pressure 130 mm[Hg] 130 mm[Hg] e CW1 ([facility]) Diastolic blood pressure 50 mm[Hg] 50 mm[Hg] eCW1 ([facility]) Body weight 239.4 [lb_av] 239.4 [lb_av] eCW1 ([facility]) Body height 65.5 [in_i] 65.5 [in_i] eCW1 ([facility]) Body mass index (BMI) [Ratio] 39.23 kg/m2 39.23 kg/m2 eCW1 ([facility]) Systolic blood pressure 112 mm[Hg] 112 mm[Hg] e CW1 ([facility]) Diastolic blood pressure 70 mm[Hg] 70 mm[Hg] eCW1 ([facility]) Body weight 234.2 [lb_av] 234.2 [lb_av] eCW1 ([facility]) Body height 65.5 [in_i] 65.5 [in_i] eCW1 ([facility]) Body mass index (BMI) [Ratio] 38.38 kg/m2 38.38 kg/m2 eCW1 ([facility]) Systolic blood pressure 110 mm[Hg] 110 mm[Hg] e CW1 ([facility]) Diastolic blood pressure 66 mm[Hg] 66 mm[Hg] eCW1 ([facility]) Diastolic blood pressure 72 mm[Hg] 72 mm[Hg] eCW1 ([facility]) Body weight 241 [lb_av] 241 [lb_av] eCW1 ([facility]) Body height 65.5 [in_i] 65.5 [in_i] eCW1 ([facility]) Body mass index (BMI) [Ratio] 39.49 kg/m2 39.49 kg/m2 eCW1 ([facility]) Heart rate 90 /min 90 /min eCW1 ([facility]) Respiratory rate 20 /min 20 /min eCW1 ([facility]) Body temperature 96.9 [degF] 96.9 [degF] eCW1 ( [facility]) Systolic blood pressure 118 mm[Hg] 118 mm[Hg] e CW1 ([facility]) Body weight 239.8 [lb_av] 239.8 [lb_av] eCW1 ([facility]) Body height 65.5 [in_i] 65.5 [in_i] eCW1 ([facility]) Body mass index (BMI) [Ratio] 39.29 kg/m2 39.29 kg/m2 eCW1 ([facility]) Heart rate 90 /min 90 /min eCW1 ([facility]) Respiratory rate 18 /min 18 /min eCW1 ([facility]) Body temperature 97.2 [degF] 97.2 [degF] eCW1 ( [facility]) Systolic blood pressure 110 mm[Hg] 110 mm[Hg] e CW1 ([facility]) Diastolic blood pressure 66 mm[Hg] 66 mm[Hg] eCW1 ([facility]) Body weight 238 [lb_av] 238 [lb_av] eCW1 ([facility]) Body weight 107.95 kg 107.95 kg eCW1 ([facility]) Body height 65.5 [in_i] 65.5 [in_i] eCW1 ([facility]) Body mass index (BMI) [Ratio] 39 kg/m2 39 kg/ m2 eCW1 ([facility]) Heart rate 85 /min 85 /min eCW1 ([facility]) Respiratory rate 18 /min 18 /min eCW1 ([facility]) Body temperature 97.0 [degF] 97.0 [degF] eCW1 ( [facility]) Systolic blood pressure 102 mm[Hg] 102 mm[Hg] e CW1 ([facility]) Diastolic blood pressure 66 mm[Hg] 66 mm[Hg] eCW1 ([facility]) Body weight 238 [lb_av] 238 [lb_av] eCW1 ([facility]) Body height 65.5 [in_i] 65.5 [in_i] eCW1 ([facility]) Body mass index (BMI) [Ratio] 39.00 kg/m2 39.00 kg/m2 eCW1 ([facility]) Heart rate 91 /min 91 /min eCW1 ([facility]) Respiratory rate 18 /min 18 /min eCW1 ([facility]) Body temperature 97.4 [degF] 97.4 [degF] eCW1 ( [facility]) Systolic blood pressure 128 mm[Hg] 128 mm[Hg] e CW1 ([facility]) Diastolic blood pressure 7 mm[Hg] 7 mm[Hg] eCW1 ([facility]) Respiratory rate 18 /min 18 /min eCW1 ([facility]) Body weight 241 [lb_av] 241 [lb_av] eCW1 ([facility]) Body temperature 97.2 [degF] 97.2 [degF] eCW1 ( [facility]) Body weight 109.32 kg 109.32 kg eCW1 ([facility]) Body height 65.5 [in_i] 65.5 [in_i] eCW1 ([facility]) Body mass index (BMI) [Ratio] 39.49 kg/m2 39.49 kg/m2 eCW1 ([facility]) Heart rate 66 /min 66 /min eCW1 ([facility]) Systolic blood pressure 130 mm[Hg] 130 mm[Hg] e CW1 ([facility]) Diastolic blood pressure 68 mm[Hg] 68 mm[Hg] eCW1 ([facility]) Body weight 237 [lb_av] 237 [lb_av] eCW1 ([facility]) Body temperature 96.4 [degF] 96.4 [degF] eCW1 ( [facility]) Body height 65.5 [in_i] 65.5 [in_i] eCW1 ([facility]) Systolic blood pressure 128 mm[Hg] 128 mm[Hg] e CW1 ([facility]) Diastolic blood pressure 70 mm[Hg] 70 mm[Hg] eCW1 ([facility]) Body mass index (BMI) [Ratio] 38.83 kg/m2 38.83 kg/m2 eCW1 ([facility]) Heart rate 100 /min 100 /min eCW1 ([facility]) Respiratory rate 18 /min 18 /min eCW1 ([facility]) Body weight 240 [lb_av] 240 [lb_av] eCW1 ([facility]) Body weight 108.86 kg 108.86 kg eCW1 ([facility]) Systolic blood pressure 124 mm[Hg] 124 mm[Hg] e CW1 ([facility]) Diastolic blood pressure 68 mm[Hg] 68 mm[Hg] eCW1 ([facility]) Body height 65.5 [in_i] 65.5 [in_i] eCW1 ([facility]) Body mass index (BMI) [Ratio] 39.33 kg/m2 39.33 kg/m2 eCW1 ([facility]) Heart rate 80 /min 80 /min eCW1 ([facility]) Respiratory rate 18 /min 18 /min eCW1 ([facility]) Body temperature 97.9 [degF] 97.9 [degF] eCW1 ( [facility]) Body weight 237 [lb_av] 237 [lb_av] eCW1 ([facility]) Body height 65.5 [in_i] 65.5 [in_i] eCW1 ([facility]) Body mass index (BMI) [Ratio] 38.83 kg/m2 38.83 kg/m2 eCW1 ([facility]) Heart rate 92 /min 92 /min eCW1 ([facility]) Respiratory rate 18 /min 18 /min eCW1 ([facility]) Body temperature 96.7 [degF] 96.7 [degF] eCW1 ( [facility]) Systolic blood pressure 120 mm[Hg] 120 mm[Hg] e CW1 ([facility]) Diastolic blood pressure 78 mm[Hg] 78 mm[Hg] eCW1 ([facility]) Heart rate 80 /min 80 /min eCW1 ([facility]) Respiratory rate 17 /min 17 /min eCW1 ([facility]) Body temperature 97.1 [degF] 97.1 [degF] eCW1 ( [facility]) Systolic blood pressure 120 mm[Hg] 120 mm[Hg] e CW1 ([facility]) Diastolic blood pressure 76 mm[Hg] 76 mm[Hg] eCW1 ([facility]) Body weight 232.4 [lb_av] 232.4 [lb_av] eCW1 ([facility]) Body height 65.5 [in_i] 65.5 [in_i] eCW1 ([facility]) Body mass index (BMI) [Ratio] 38.08 kg/m2 38.08 kg/m2 eCW1 ([facility]) Patient Treatment Plan of Care Planned Activity Planned Date Details Description Data Source (s) Fluconazole 150 MG Oral Tablet [Diflucan] 04/07/2021 12:00:00 AM ED T eCW1 ([facility]) Fluconazole 150 MG Oral Tablet [Diflucan] 04/07/2021 12:00:00 AM ED T eCW1 ([facility]) Fluconazole 150 MG Oral Tablet [Diflucan] 04/07/2021 12:00:00 AM ED T eCW1 ([facility]) Fluconazole 150 MG Oral Tablet [Diflucan] 04/07/2021 12:00:00 AM ED T eCW1 ([facility]) Codeine Phosphate 2 MG/ML / Guaifenesin 20 MG/ML Oral Solution 02/19/2021 12:00:00 AM EDT eCW1 ([facility]) Codeine Phosphate 2 MG/ML / Guaifenesin 20 MG/ML Oral Solution 02/19/2021 12:00:00 AM EDT eCW1 ([facility]) Codeine Phosphate 2 MG/ML / Guaifenesin 20 MG/ML Oral Solution 02/19/2021 12:00:00 AM EDT eCW1 ([facility]) Codeine Phosphate 2 MG/ML / Guaifenesin 20 MG/ML Oral Solution 02/19/2021 12:00:00 AM EDT eCW1 ([facility]) Acetaminophen 325 MG / Hydrocodone Bitartrate 5 MG Ora l Tablet 12/31/2020 12:00:00 AM EDT eCW1 ([facility]) HYDROcodone Bitartrate ER 10 MG 12/31/2020 12:00:00 AM EDT eCW1 ([facility]) Acetaminophen 325 MG / Hydrocodone Bitartrate 5 MG Ora l Tablet 12/31/2020 12:00:00 AM EDT eCW1 ([facility]) HYDROcodone Bitartrate ER 10 MG 12/31/2020 12:00:00 AM EDT eCW1 ([facility]) heparin sodium, porcine 5000 UNT/ML Injectable Solutio n 12/24/2020 12:00:00 AM EDT eCW1 ([facility]) heparin sodium, porcine 5000 UNT/ML Injectable Solutio n 12/24/2020 12:00:00 AM EDT eCW1 ([facility]) heparin sodium, porcine 5000 UNT/ML Injectable Solutio n 12/24/2020 12:00:00 AM EDT eCW1 ([facility]) heparin sodium, porcine 5000 UNT/ML Injectable Solutio n 12/24/2020 12:00:00 AM EDT eCW1 ([facility]) heparin sodium, porcine 5000 UNT/ML Injectable Solutio n 12/24/2020 12:00:00 AM EDT eCW1 ([facility]) Heparin Sodium (Porcine) 5000 unit/mL 12/18/2020 12:00:00 AM EDT eCW1 ([facility]) Heparin Sodium (Porcine) 5000 unit/mL 12/18/2020 12:00:00 AM EDT eCW1 ([facility]) Heparin Sodium (Porcine) 5000 unit/mL 12/18/2020 12:00:00 AM EDT eCW1 ([facility]) Heparin Sodium (Porcine) 5000 unit/mL 12/18/2020 12:00:00 AM EDT eCW1 ([facility]) Heparin Sodium (Porcine) 5000 unit/mL 12/18/2020 12:00:00 AM EDT eCW1 ([facility]) Heparin Sodium (Porcine) 5000 unit/mL 12/18/2020 12:00:00 AM EDT eCW1 ([facility]) Clobetasol Prop Emollient Base 0.05 % 10/09/2020 12:00:00 AM EDT eCW1 ([facility]) Levaquin 750 MG 09/24/2020 12:00:00 AM EST eCW1 ([facility]) Levaquin 750 MG 09/24/2020 12:00:00 AM EST eCW1 ([facility]) Levaquin 750 MG 09/24/2020 12:00:00 AM EST eCW1 ([facility]) Levaquin 750 MG 09/24/2020 12:00:00 AM EST eCW1 ([facility]) May Have - 09/10/2020 12:00:00 AM EST e CW1 ([facility]) benzonatate 100 MG Oral Capsule [Qiana Ivey] 05/30/2020 12: 00:00 AM EST eCW1 ([facility]) meloxicam 7.5 MG Oral Tablet 05/30/2020 12:00:00 AM EST eCW1 ([facility]) atorvastatin 20 MG Oral Tablet 05/14/2020 12:00:00 AM EDT eCW1 ([facility]) atorvastatin 20 MG Oral Tablet 05/14/2020 12:00:00 AM EDT eCW1 ([facility]) atorvastatin 20 MG Oral Tablet 05/14/2020 12:00:00 AM EDT eCW1 ([facility])
[2021-05-16] MEDS: LIDOCAINE 5% (LIDODERM) PATCH TD ONE (03:16)
--- NOTE | 2021-05-16 03:35 | REP ---
INDICATION: trauma COMPARISON: None. TECHNIQUE: Frontal view of the chest with multiple views of the left hemithorax. Five total views. FINDINGS: Frontal view of the chest demonstrates no acute cardiopulmonary process, contusion, effusion, or pneumothorax. Multiple views of the hemithorax demonstrates no acute rib fracture/injury or pathology. IMPRESSION: Normal rib series. <Electronically signed by Miguel Merida > 05/16/21 0335
[2021-05-16 03:45] VITALS: BP 97/54
[2021-05-16] MEDS ORDERED: **NOTE PATIENT COMMENT** MISC XX ONE (15:09)
== END 2021-05-16 04:07 | disposition home or self-care (01) ==
LOC: M ED 01:59
DX: S20.229A Contusion of unspecified back wall of thorax, initial encounter (principal); W19.XXXA Unspecified fall, initial encounter; Y92.89 Other specified places as the place of occurrence of the external cause; Y93.89 Activity, other specified; Y99.8 Other external cause status; M51.36 Other intervertebral disc degeneration, lumbar region; Z79.01 Long term (current) use of anticoagulants; Z88.0 Allergy status to penicillin; Z88.8 Allergy status to other drugs, medicaments and biological substances; Z88.2 Allergy status to sulfonamides; Z88.1 Allergy status to other antibiotic agents

== ENCOUNTER 2021-06-18 22:24 | Emergency (ER) | payer OTHER ==
[~2021-06-18] VITALS: Ht 165.1 cm; Wt 102.3 kg
--- OUTSIDE RECORDS SUMMARY | 2021-06-18 22:32 | CCD ---
Author Author [facility] Organization [facility] Address Unknown Phone Unavailable Care Team Providers Care Assistant To The Vice President Name Role Phone Fatimah De La Garza Unavailable PROBLEMS Type Condition ICD9-CM Code SFO15-IQ Code Onset Dates Condition S tatus W/U Status Risk SNOMED Code Notes Problem Degenerative disc disease, cervical M50.30 Acti ve confirmed 02660754 Problem Post traumatic stress disorder (PTSD) F43.10 Ac tive confirmed 76653972 Problem Cervical cancer screening Z12.4 Active confirmed 881648069 Problem Family history of breast cancer Z80.3 Active confi rmed 841375108 Problem Mild persistent asthma without complication J45.30 Active confirmed 213710377 Problem Factor 5 Leiden mutation, heterozygous D68.51 A ctive confirmed 167045781 Problem Gastroesophageal reflux disease with esophagitis K 21.0 Active confirmed 502003549 Problem Constipation, unspecified constipation type K59.00 Active confirmed 44389639 Problem Splenomegaly R16.1 Active confirmed 2660712 9 Problem Seasonal allergic rhinitis due to pollen J30.1 Active confirmed 20527016 Problem Anti-phospholipid syndrome D68.61 Active confirmed 89627368 Problem Adenoma of left adrenal gland D35.02 Active confirm ed 935019450 Problem Nicotine use disorder F17.200 Active confirmed 55312263 Problem Complex cyst of left ovary N83.292 Active confi rmed 86115079815865004 Problem Non-compliant behavior R46.89 Active confirmed 730886436 Problem History of pulmonary embolus (PE) Z86.711 Active confirmed 923313333 Problem Obesity (BMI 30-39.9) E66.9 Active confirmed 114637283 Problem Chronic anticoagulation Z79.01 Active confirmed 099645490 Problem Lumbago with sciatica, right side M54.41 Active confirmed 915313666 Problem Smoker F17.200 Active confirmed 50715006 Problem Paranoid schizophrenia F20.0 Active confirmed 11018167 Problem Menorrhagia with irregular cycle N92.1 Active conf irmed 642045393 Problem Hyperlipidemia, mixed E78.2 Active confirmed 618123190 Problem H/O deep venous thrombosis Z86.718 Active confirmed 649323593 Problem Mild persistent asthma with acute exacerbation J45 .31 Active confirmed 343592705869058 Problem Hx pulmonary embolism Z86.711 Active confirmed 534962489 ALLERGIES Allergen (clinical drug ingredient) Drug/Non Drug Allergy do cumented on EMR Reaction Allergy Type Onset Date Status Penicillin (For Allergies Use Only) swelling Drug Allerg y Active amoxicillin Amoxicillin([facility] Code:[address]-28) swelling Drug Aller gy Active ibuprofen Ibuprofen([facility] Code:[address]-00) ? Drug Allergy Active sulfamethoxazole / trimethoprim Bactrim([facility] Code:[address]-65) swelling Drug Allergy Active Sudafed([facility] Code:[address]-74) ? Drug Allergy Active gabapentin Gabapentin([facility] Code:[address]-75) swelling Drug Allergy Active acetaminophen Acetaminophen([facility] Code:[address]-38) swelling Drug A llergy Active phenazopyridine Pyridium([facility] Code:[address]-26) swelling Drug Nick rgy Active ENCOUNTERS from 1980 to 2021-05-27 Encounter Location Date Provider Diagnosis [place] [address] [facility] [phone] [place] [address] Apr, [facility] IMMUNIZATIONS No Information SOCIAL HISTORY Tobacco Use: Social History Observation Description Date Details (start date - stop date) Current Smoker Sex Assigned At : Social History Observation Description Sex Assigned At Unknown Audit Question Answer Notes Total Score: 0 Interpretation: Alcohol Education Language: Question Answer Notes Languages spoken: Pashto Denominational: Question Answer Notes Denominational 08 Zoroastrianism Drug and Alcohol Question Answer Notes Total [...] Orally bid for 30 days Active Nystatin 950459 UNIT/GM 1 application Externally to groin Twice [...] Information RESULTS No Results REASON FOR VISIT 3rd no show MEDICAL (GENERAL) HISTORY Type Description Date Medical History Paranoid Schizophrenia, PTSD treated in [place] previously-follows [facility] on abilify inj.s Medical History Cervical DDD [...] complex ovarian cyst 65/65 /53 by 02/05/18 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 for malignancy 2013 Surgical History PE Screen 10/2019 Surgical History R nipple/areola breast excisional biopsy 06/2020 Surgical History [facility] 12/27/2020 Hospitalization History [facility] 07/19/2018-07/26 Hospitalization History [facility] 04/2019 Hospitalization History B PE, [...] Next Appt Details Provider Name:Steph Roberts, [birth year] 21[birth year]12 09:00:00 AM, [address], , [place], [address], Insurance Providers Payer Name Payer Address Payer Phone Insured Name Patient Relati onship to Insured Coverage Start Date Coverage End Date [employer] [facility] [employer] [facility] [address] [facility] [phone] ELGIN KOO self
--- OUTSIDE RECORDS SUMMARY | 2021-06-18 22:32 | CCD ---
Author Author [facility] Organization [facility] Address Unknown Phone Unavailable Care Team Providers Care Jewel Bearing Grinder Name Role Phone SonnyBal segovia Unavailable PROBLEMS ALLERGIES ENCOUNTERS from 1980 to 2021-06-09 IMMUNIZATIONS No Information SOCIAL HISTORY REASON FOR REFERRAL No Information VITAL SIGNS MEDICATIONS PROCEDURES No Information RESULTS No Results REASON FOR VISIT MEDICAL (GENERAL) HISTORY Goals Section Health Concerns MEDICAL EQUIPMENT No Information MENTAL STATUS FUNCTIONAL STATUS ASSESSMENTS PLAN OF TREATMENT Insurance Providers
--- OUTSIDE RECORDS SUMMARY | 2021-06-18 22:32 | CCD ---
Author Author [facility] Organization [facility] Address Unknown Phone Unavailable Care Team Providers Care Manufacturing Tech Name Role Phone Catherine Monk Unavailable PROBLEMS Type Condition ICD9-CM Code [id number] Code Onset Dates Condition S tatus W/U Status Risk SNOMED Code Notes Problem Degenerative disc disease, cervical M50.30 Acti ve confirmed 66420614 Problem Post traumatic stress disorder (PTSD) F43.10 Ac tive confirmed 66767482 Problem Cervical cancer screening Z12.4 Active confirmed 658584610 Problem Family history of breast cancer Z80.3 Active confi rmed 750175577 Problem Mild persistent asthma without complication J45.30 Active confirmed 838353173 Problem Factor 5 Leiden mutation, heterozygous D68.51 A ctive confirmed 220582573 Problem Gastroesophageal reflux disease with esophagitis K 21.0 Active confirmed 274646651 Problem Constipation, unspecified constipation type K59.00 Active confirmed 69547257 Problem Splenomegaly R16.1 Active confirmed 1915815 9 Problem Seasonal allergic rhinitis due to pollen J30.1 Active confirmed 57510952 Problem Anti-phospholipid syndrome D68.61 Active confirmed 84977064 Problem Adenoma of left adrenal gland D35.02 Active confirm ed 573699143 Problem Nicotine use disorder F17.200 Active confirmed 01963581 Problem Complex cyst of left ovary N83.292 Active confi rmed 39177772251714458 Problem Non-compliant behavior R46.89 Active confirmed 458898873 Problem History of pulmonary embolus (PE) Z86.711 Active confirmed 421430539 Problem Obesity (BMI 30-39.9) E66.9 Active confirmed 919608814 Problem Chronic anticoagulation Z79.01 Active confirmed 907703904 Problem Lumbago with sciatica, right side M54.41 Active confirmed 436926205 Problem Smoker F17.200 Active confirmed 98523774 Problem Paranoid schizophrenia F20.0 Active confirmed 03472697 Problem Menorrhagia with irregular cycle N92.1 Active conf irmed 481489098 Problem Hyperlipidemia, mixed E78.2 Active confirmed 522513094 Problem H/O deep venous thrombosis Z86.718 Active confirmed 201305882 Problem Mild persistent asthma with acute exacerbation J45 .31 Active confirmed 264308846122038 Problem Hx pulmonary embolism Z86.711 Active confirmed 993864782 ALLERGIES Allergen (clinical drug ingredient) Drug/Non Drug Allergy do cumented on EMR Reaction Allergy Type Onset Date Status Penicillin (For Allergies Use Only) swelling Drug Allerg y Active amoxicillin Amoxicillin([facility] Code:[address]-64) swelling Drug Aller gy Active ibuprofen Ibuprofen([facility] Code:[address]-77) ? Drug Allergy Active sulfamethoxazole / trimethoprim Bactrim([facility] Code:[address]-25) swelling Drug Allergy Active Sudafed([facility] Code:[address]-38) ? Drug Allergy Active gabapentin Gabapentin([facility] Code:[address]-28) swelling Drug Allergy Active acetaminophen Acetaminophen([facility] Code:[address]-96) swelling Drug A llergy Active phenazopyridine Pyridium([facility] Code:[address]-15) swelling Drug Nick rgy Active ENCOUNTERS from 1980 to 2021-06-09 Encounter Location Date Provider Diagnosis [facility] [facility] [phone] [place] [address] May, Catherine Lacho IMMUNIZATIONS No Information SOCIAL HISTORY Tobacco Use: Social History Observation Description Date Details (start date - stop date) Current Smoker Sex Assigned At : Social History Observation Description Sex Assigned At Unknown Audit Question Answer Notes Total Score: 0 Interpretation: Alcohol Education Language: Question Answer Notes Languages spoken: Armenian Restorationism: Question Answer Notes Restorationism 08 Mormonism Drug and Alcohol Question Answer Notes Total [...] 4 hrs for 5 day(s) Jan, Not-Taking Fluticasone Propionate 50 MCG/ACT 1 spray in each nost ril Nasally Once a day for 30 Not-Taking Clobetasol Prop Emollient Base 0.05 % apply a thin lay er to groin Externally Twice a day for 7 day(s) Sep, Not-Suman ing Eliquis 5 MG 1 tab Orally bid for 30 days Active May Have - cane daily daily dx m54.41 for 99 days Aug Not-Taking Diflucan 150 MG 1 tablet Orally once for 1 days If sympt oms persist 72 hours after initial dosing, take second dose. Mar, Active Claritin 10 MG 1 tablet Orally Once a day for 30 days Active Atorvastatin Calcium 20 MG 1 tablet Orally Once a day for 30 Days Not-Taking Albuterol Sulfate HFA 108 (90 Base) MCG/ACT 2 puffs as needed Inhalation every 6 hrs for 90 days Active Heparin Sodium (Porcine) 5000 unit/mL as directed Inje ction subcuticular every 12 hrs for 3 days November, Not-Taking Heparin Sodium (Porcine) 5000 UNIT/ML 1 ml Injection every 1 2 hrs for 5 day(s) Dec, Not-Taking Nystatin 241149 UNIT/GM 1 application Externally to groin Twice a day for 10 day(s) Oct, Not-Taking Abilify 10 MG 1 tablet Orally Daily Active Diflucan 150 MG 1 tablet Orally now and again in 3 days if sympt oms persist May, Active HYDROcodone-Acetaminophen 5-325 MG 1 tablet as needed Orally every 6 hrs for 10 days Dec, Not-Taking AirDuo RespiClick 113/14 113-14 MCG/ACT 1 puff Inhalat ion Twice a day for 90 days Active Methocarbamol 750 MG TAKE ONE TABLET BY MOUTH THREE TIMES A DAY for 3 0 Not-Taking HYDROcodone Bitartrate ER 10 MG 1 capsule Orally every 12 hrs fo r 5 days Dec, Not-Taking PROCEDURES No Information RESULTS No Results REASON FOR VISIT Possible yeast infection MEDICAL (GENERAL) HISTORY Type Description Date Medical History Paranoid Schizophrenia, PTSD treated in [place] previously-follows c 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 for malignancy 2013 Surgical History PE Screen 10/2019 Surgical History R nipple/areola breast excisional biopsy 06/2020 Surgical History [facility] 12/27/[address] [facility] 07/19/2018-07/26 [facility] 04/2019 Hospitalization History B PE, LLE DVT-+ apixaban, dc ed OCP, encouragedd to dc nicotine 06/20- Hospitalization History DVT, PE 10/20/2019 Goals Section No Information Health Concerns No Information MEDICAL EQUIPMENT No Information MENTAL STATUS No Information FUNCTIONAL STATUS No Information ASSESSMENTS No Information PLAN OF TREATMENT Medication Medication Name Sig Start Date Stop Date Albuterol Sulfate HFA 108 (90 Base) MCG/ACT 2 puffs as needed Inhalation every 6 hrs for 90 days AirDuo RespiClick 113/14 113-14 MCG/ACT 1 puff Inhalat ion Twice a day for 90 days Diflucan 150 MG 1 tablet Orally once for 1 days Mar, Claritin 10 MG 1 tablet Orally Once a day for 30 days Diflucan 150 MG 1 tablet Orally now and again in 3 days if symptoms persist May, Insurance Providers Payer Name Payer Address Payer Phone Insured Name Patient Relati onship to Insured Coverage Start Date Coverage End Date [facility] COMM[facility]AN [facility] [address] [facility] [phone] ELGIN KOO self
--- OUTSIDE RECORDS SUMMARY | 2021-06-18 22:34 | CCD ---
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 Public Health law. If you continue you may have access to information: Regarding HIV / AIDS; Provided by facilities licensed or operated by the [facility] Office of Mental Health; or Provided by the [facility] Office for People With Developmental Disabilities. If such information is present, then the following [facility] mandated warning applies: This information has [...] Data Source(s ) Drug allergy pyridium pyridium [facility] Drug allergy penicillin penicillin [facility] Drug allergy bactrim bactrim [facility] Drug allergy Drug allergy [id number] [facility] Propensity to adverse reactions SUDAFED PE COLD & COUGH SUDAFED PE COLD & COUGH [facility] Drug allergy AMOXICILLIN AMOXICILLIN [facility] Family History Family Member Name Family Member Gender Family Member Status Date o f Status Description Data Source(s) Unknown Male Problem [facility] ([facility]) Encounters Encounter Providers Location Date Indications Data Source(s ) Unknown [address] [facility] [address] 06/09/2021 12:00:00 AM EST eCW1 ([facility] Unknown [address] [facility] [address] 06/09/2021 12:00:00 AM EST eCW1 ([facility] Unknown [address] [facility] [place] [address] 05/12/2021 12:00:00 AM EDT eCW1 ([facility]) Unknown [address] [facility] [place] [address] 04/29/2021 12:00:00 AM EDT eCW1 ([facility]) Unknown [address] [facility] [place] [address] 04/16/2021 12:00:00 AM EDT eCW1 ([facility]) Outpatient [address] [facility] [place] [address] 04/07/2021 12:00:00 AM EDT eCW1 ([facility]) Unknown [address] [facility] [place] [address] 04/07/2021 12:00:00 AM EDT eCW1 ([facility]) [facility] 03/12/2021 12:00:00 AM EDT [employer] ([facility]) Unknown [address] [facility] [place] [address] 03/12/2021 12:00:00 AM EDT eCW1 [facility]) Unknown [address] [facility] [place] [address] 02/28/2021 12:00:00 AM EDT eCW1 ([facility]) Emergency Attender: Balaji Garcia MDConsultant: Fatimah MESA 02/18/2021 02:36:00 PM EDT - 02/18/2021 04:45:00 PM EDT [facility] Patient discharged. Unknown [address] [facility] [place] [address] 02/18/2021 12:00:00 AM EDT eCW1 ([facility]) Emergency Attender: JACQUI EDUARDOConsultant: Fatimah MESA 02/17/2021 08:20:00 PM EDT - 02/17/2021 10:10:00 PM EDT [facility] Patient discharged. Emergency Attender: LINDA BLACK MDConsultant: Fatimah MESA 02/10/2021 11:55:00 PM EDT - 02/11/2021 02:57:00 AM EDT [facility] Patient discharged. 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 [address] 12/31/2020 12:00:00 AM EDT eCW1 ([facility]) Unknown [address] [facility] [address] 12/31/2020 12:00:00 AM EDT eCW1 ([facility]) Unknown [address] [facility] [address] 12/24/2020 12:00:00 AM EDT eCW1 ([facility]) Unknown [address] [facility] [address] 12/24/2020 12:00:00 AM EDT eCW1 ([facility]) Unknown [address] 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) Emergency Attender: Balaji Garcia MDConsultant: Fatimah MESA 12/13/2020 04:26:00 PM EDT - 12/13/2020 06:24:00 PM EDT [facility] Patient discharged. Telehealth Physchotherapy 30 Minutes with Patient [facility] 11/18/2020 12:00:00 AM EDT [employer] ([facility]) Unknown [address] [facility] [place] [address] 11/18/2020 12:00:00 AM EDT eCW1 ([facility]) Unknown [address] [facility] [address] 11/14/2020 12:00:00 AM EDT eCW1 ([facility]) Outpatient [address] [facility] [place] [address] 11/13/2020 12:00:00 AM EDT eCW1 ([facility]) Outpatient [address] [facility] [place] [address] 11/11/2020 12:00:00 AM EDT eCW1 ([facility]) (WC PROC) WCenter Procedure [address] [place] [address] 11/08/2020 12:00:00 AM EDT eCW1 ([facility]) Outpatient [address] [facility] [place] [address] 10/09/2020 12:00:00 AM EDT eCW1 ([facility]) Outpatient [address] [facility] [place] [address] 09/24/2020 12:00:00 AM EST eCW1 ([facility]) Unknown [address] [facility] [place] [address] 09/24/2020 12:00:00 AM EST eCW1 ([facility]) Outpatient [address] [facility] [place] [address] 09/23/2020 12:00:00 AM EST eCW1 ([facility]) Unknown [address] [facility] [place] [address] 09/20/2020 12:00:00 AM EST eCW1 ([facility]) Unknown [address] [facility] [place] [address] 09/10/2020 12:00:00 AM EST eCW1 ([facility]) ( FU) Breast Center Follow Up [address] [place] [address] 08/23/2020 12:00:00 AM EST eCW1 ([facility]) Outpatient [address] [facility] [place] [address] 08/20/2020 12:00:00 AM EST eCW1 ([facility]) Unknown [address] [facility] [place] [address] 08/12/2020 12:00:00 AM EST eCW1 ([facility]) Unknown [address] [facility] [place] [address] 08/05/2020 12:00:00 AM EST eCW1 ([facility]) (BC FU) Breast Center Follow Up [address] [place] [address] 07/11/2020 12:00:00 AM EST eCW1 ([facility]) Unknown [address] [facility] [place] [address] 07/10/2020 12:00:00 AM EST eCW1 ([facility]) Unknown [address] [facility] [place] [address] 07/10/2020 12:00:00 AM EST eCW1 ([facility]) Unknown [address] [facility] [place] [address] 07/05/2020 12:00:00 AM EST eCW1 ([facility]) Outpatient [address] [facility] [place] [address] 07/05/2020 12:00:00 AM EST eCW1 ([facility]) Unknown [address] [facility] [place] [address] 07/01/2020 12:00:00 AM EST eCW1 ([facility]) Outpatient [address] [facility] [place] [address] 06/28/2020 12:00:00 AM EST eCW1 ([facility]) Outpatient [address] [facility] [place] [address] 05/30/2020 12:00:00 AM EST eCW1 ([facility]) Unknown [address] [facility] [place] [address] 05/28/2020 12:00:00 AM EST eCW1 ([facility]) Outpatient [address] [facility] [place] [address] 05/10/2020 12:00:00 AM EDT eCW1 ([facility]) Unknown [address] [facility] [place] [address] 04/29/2020 12:00:00 AM EDT eCW1 ([facility]) Unknown [address] [facility] [place] [address] 04/29/2020 12:00:00 AM EDT eCW1 ([facility]) Immunizations Vaccine Date Status Description Data Source(s) INFLUENZA VIRUS VACCINE QUADRIVALENT 2019- (6 MOS AN D UP) 08/23/2020 12:00:00 AM EST completed [facility] Medications Medication Brand Name Start Date Product Form Dose Route Admi nistrative Instructions Pharmacy Instructions Status Indications Reaction Description Data Source(s) 60 ACTUAT Fluticasone propionate 0.113 M G/ACTUAT / Salmeterol xinafoate 0.014 MG/ACTUAT Dry Powder Inhaler 113-14 mcg/actuation FLUTICASONE PROPION/SALMETEROL 06/09/2021 12:00:00 AM EST aerosol powdr breath activated 1 INHALE 1 PUFF TWICE A DAY INHALE 1 PUFF TWICE A DAY SOLD: 06/09/2021 [facility] Fluconazole 150 MG Oral Tablet [Diflucan] Diflucan 150 MG Di flucan 150 MG 06/09/2021 12:00:00 AM EST 1.0 {tablet} active eCW1 ([facility]) 10 mg 06/09/2021 12:00:00 AM EST tablet 30 TAKE ONE TABLET BY MOUTH EVERY DAY TAKE ONE TABLET BY MOUTH EVERY DAY SOLD: 06/09/2021 [facility] Fluconazole 150 MG Oral Tablet [Diflucan] Diflucan 150 MG Di flucan 150 MG 06/09/2021 12:00:00 AM EST 1.0 {tablet} active Diflucan 150 MG eCW1 ([facility]) 150 mg 06/09/2021 12:00:00 AM EST tablet 2 TAKE ONE TABLET BY MOUTH NOW AND TAKE AGAIN IN 3 DAYS IF SYMPTOMS PERSIST TAKE ONE TABLET BY MOUTH NOW AND TAKE AGAIN IN 3 DAYS IF SYMPTOMS PERSIST SOLD: 06/09/2021 [facility] 90 mcg/actuation 06/09/2021 12:00:00 AM EST HFA aerosol inha ler 36 INHALE 2 PUFFS BY MOUTH EVERY 6 HOURS INHALE 2 PUFFS BY MOUTH EVERY 6 HOURS SOLD: 06/09/2021 [facility] 20 mg 05/08/2021 12:00:00 AM EDT tablet [...] NEEDED FOR SLEEP SOLD: 04/11/2021 [facility] Fluconazole 150 MG Oral Tablet [Diflucan] Diflucan 150 MG Di flucan 150 MG 04/07/2021 12:00:00 AM EDT 1.0 {tablet} active Diflucan 150 MG eCW1 ([facility]) Fluconazole 150 MG Oral Tablet [Diflucan] Diflucan 150 MG Di flucan 150 MG 04/07/2021 12:00:00 AM EDT 1.0 {tablet} active eCW1 ([facility]) 150 mg 04/07/2021 12:00:00 AM EDT tablet [...] 1.0 {tablet} active Diflucan 150 MG eCW1 ([facility]) Fluconazole 150 MG Oral Tablet [Diflucan] Diflucan 150 MG Di flucan 150 MG 04/07/2021 12:00:00 AM EDT 1.0 {tablet} active Diflucan 150 MG eCW1 ([facility]) Fluconazole 150 MG Oral Tablet [Diflucan] Diflucan 150 MG Di flucan 150 MG 04/07/2021 12:00:00 AM EDT 1.0 {tablet} active Diflucan 150 MG eCW1 ([facility]) Fluconazole 150 MG Oral Tablet [Diflucan] Diflucan 150 MG Di flucan 150 MG 04/07/2021 12:00:00 AM EDT 1.0 {tablet} active Diflucan 150 MG eCW1 ([facility]) Fluconazole 150 MG Oral Tablet [Diflucan] Diflucan 150 MG Di flucan 150 MG 04/07/2021 12:00:00 AM EDT 1.0 {tablet} active Diflucan 150 MG eCW1 ([facility]) 20 mg 03/17/2021 12:00:00 AM EDT tablet 30 TAKE ONE TABLET BY MOUTH EVERY DAY TAKE ONE TABLET BY MOUTH EVERY DAY SOLD: 03/21/2021 [facility] 10 mg 03/13/2021 12:00:00 AM EDT tablet 60 TAKE ONE TABLET BY MOUTH TWICE A DAY NEEDED ANXIETY/SLEEP TAKE ONE TABLET BY MOUTH TWICE A DAY NEEDED ANXIETY/SLEEP SOLD: 03/14/2021 [facility] 10 mg 03/13/2021 12:00:00 AM EDT tablet 30 TAKE ONE TABLET BY MOUTH EVERY DAY AT BEDTIME TAKE ONE TABLET BY MOUTH EVERY DAY AT BEDTIME SOLD: 03/14/2021 [facility] Codeine Phosphate 2 MG/ML / Guaifenesin 20 MG/ML Oral Solution guaiFENesin AC 100-10 MG/5ML guaiFENesin AC 100-10 MG/5ML 02/19/2021 12:00:00 AM EDT 10.0 {ml_as_needed} suspended guaiFENesin AC 100-10 MG/5ML eCW1 ([facility]) Codeine Phosphate 2 MG/ML / Guaifenesin 20 MG/ML Oral Solution guaiFENesin AC 100-10 MG/5ML guaiFENesin AC 100-10 MG/5ML 02/19/2021 12:00:00 AM EDT 10.0 {ml_as_needed} active guaiFENesin AC 10 0-10 MG/5ML eCW1 ([facility]) Codeine Phosphate 2 MG/ML / Guaifenesin 20 MG/ML Oral Solution guaiFENesin AC 100-10 MG/5ML guaiFENesin AC 100-10 MG/5ML 02/19/2021 12:00:00 AM EDT 10.0 {ml_as_needed} suspended eCW1 ([facility]) Codeine Phosphate 2 MG/ML / Guaifenesin 20 MG/ML Oral Solution guaiFENesin AC 100-10 MG/5ML guaiFENesin AC 100-10 MG/5ML 02/19/2021 12:00:00 AM EDT 10.0 {ml_as_needed} active eCW1 ([facility]) Codeine Phosphate 2 MG/ML / Guaifenesin 20 MG/ML Oral Solution guaiFENesin AC 100-10 MG/5ML guaiFENesin AC 100-10 MG/5ML 02/19/2021 12:00:00 AM EDT 10.0 {ml_as_needed} active guaiFENesin AC 10 0-10 MG/5ML eCW1 ([facility]) Codeine Phosphate 2 MG/ML / Guaifenesin 20 MG/ML Oral Solution guaiFENesin AC 100-10 MG/5ML guaiFENesin AC 100-10 MG/5ML 02/19/2021 12:00:00 AM EDT 10.0 {ml_as_needed} suspended guaiFENesin AC 100-10 MG/5ML eCW1 ([facility]) Codeine Phosphate 2 MG/ML / Guaifenesin 20 MG/ML Oral Solution guaiFENesin AC 100-10 MG/5ML guaiFENesin AC 100-10 MG/5ML 02/19/2021 12:00:00 AM EDT 10.0 {ml_as_needed} suspended guaiFENesin AC 100-10 MG/5ML eCW1 ([facility]) Codeine Phosphate 2 MG/ML / Guaifenesin 20 MG/ML Oral Solution guaiFENesin AC 100-10 MG/5ML guaiFENesin AC 100-10 MG/5ML 02/19/2021 12:00:00 AM EDT 10.0 {ml_as_needed} suspended guaiFENesin AC 100-10 MG/5ML eCW1 ([facility]) Codeine Phosphate 2 MG/ML / Guaifenesin 20 MG/ML Oral Solution guaiFENesin AC 100-10 MG/5ML guaiFENesin AC 100-10 MG/5ML 02/19/2021 12:00:00 AM EDT 10.0 {ml_as_needed} suspended guaiFENesin AC 100-10 MG/5ML eCW1 ([facility]) Codeine Phosphate 2 MG/ML / Guaifenesin 20 MG/ML Oral Solution guaiFENesin AC 100-10 MG/5ML guaiFENesin AC 100-10 MG/5ML 02/19/2021 12:00:00 AM EDT 10.0 {ml_as_needed} suspended guaiFENesin AC 100-10 MG/5ML eCW1 ([facility]) Codeine Phosphate 2 MG/ML / Guaifenesin 20 MG/ML Oral Solution guaiFENesin AC 100-10 MG/5ML guaiFENesin AC 100-10 MG/5ML 02/19/2021 12:00:00 AM EDT 10.0 {ml_as_needed} active guaiFENesin AC 10 0-10 MG/5ML eCW1 ([facility]) 4 mg 02/18/2021 12:00:00 AM EDT tablets,dose [...] active HYDROcodone Bitartrate ER 10 MG eCW1 ([facility]) HYDROcodone Bitartrate ER 10 MG HYDROcodone Bitartrate ER 10 MG 12/31/2020 12:00:00 AM EDT 1.0 {capsule} suspended eCW1 ([facility]) Acetaminophen 325 MG / Hydrocodone Bee trate 5 MG Oral Tablet HYDROcodone- Acetaminophen 5-325 MG HYDROcodone-Acetaminophen 5-325 MG 12/31/2020 12:00:00 AM EDT 1.0 {tablet_as_needed} suspended HYDROcodone-Acetaminophen 5- 325 MG eCW1 ([facility]) Acetaminophen 325 MG / Hydrocodone Bee trate 5 MG Oral Tablet HYDROcodone- Acetaminophen 5-325 MG HYDROcodone-Acetaminophen 5-325 MG 12/31/2020 12:00:00 AM EDT 1.0 {tablet_as_needed} active HYDROcodone-Acetaminophen 5-325 MG eCW1 ([facility]) Acetaminophen 325 MG / Hydrocodone Bee trate 5 MG Oral Tablet HYDROcodone- Acetaminophen 5-325 MG HYDROcodone-Acetaminophen 5-325 MG 12/31/2020 12:00:00 AM EDT 1.0 {tablet_as_needed} active HYDROcodone-Acetaminophen 5-325 MG eCW1 ([facility]) HYDROcodone Bitartrate ER 10 MG HYDROcodone Bitartrate ER 10 MG 12/31/2020 12:00:00 AM EDT 1.0 {capsule} suspended HYDROcodone Bitartrate ER 10 MG eCW1 ([facility]) Acetaminophen 325 MG / Hydrocodone Bee trate 5 MG Oral Tablet HYDROcodone- Acetaminophen 5-325 MG HYDROcodone-Acetaminophen 5-325 MG 12/31/2020 12:00:00 AM EDT 1.0 {tablet_as_needed} suspended HYDROcodone-Acetaminophen 5- 325 MG eCW1 ([facility]) HYDROcodone Bitartrate ER 10 MG HYDROcodone Bitartrate ER 10 MG 12/31/2020 12:00:00 AM EDT 1.0 {capsule} active HYDROcodone Bitartrate ER 10 MG eCW1 ([facility]) Acetaminophen 325 MG / Hydrocodone Bee trate 5 MG Oral Tablet HYDROcodone- Acetaminophen 5-325 MG HYDROcodone-Acetaminophen 5-325 MG 12/31/2020 12:00:00 AM EDT 1.0 {tablet_as_needed} active HYDROcodone-Acetaminophen 5-325 MG eCW1 ([facility]) HYDROcodone Bitartrate ER 10 MG HYDROcodone Bitartrate ER 10 MG 12/31/2020 12:00:00 AM EDT 1.0 {capsule} active HYDROcodone Bitartrate ER 10 MG eCW1 ([facility]) HYDROcodone Bitartrate ER 10 MG HYDROcodone Bitartrate ER 10 MG 12/31/2020 12:00:00 AM EDT 1.0 {capsule} suspended HYDROcodone Bitartrate ER 10 MG eCW1 ([facility]) Acetaminophen 325 MG / Hydrocodone Bee trate 5 MG Oral Tablet HYDROcodone- Acetaminophen 5-325 MG HYDROcodone-Acetaminophen 5-325 MG 12/31/2020 12:00:00 AM EDT 1.0 {tablet_as_needed} active HYDROcodone-Acetaminophen 5-325 MG eCW1 ([facility]) HYDROcodone Bitartrate ER 10 MG HYDROcodone Bitartrate ER 10 MG 12/31/2020 12:00:00 AM EDT 1.0 {capsule} active HYDROcodone Bitartrate ER 10 MG eCW1 ([facility]) HYDROcodone Bitartrate ER 10 MG HYDROcodone Bitartrate ER 10 MG 12/31/2020 12:00:00 AM EDT 1.0 {capsule} suspended HYDROcodone Bitartrate ER 10 MG eCW1 ([facility]) Acetaminophen 325 MG / Hydrocodone Bee trate 5 MG Oral Tablet HYDROcodone- Acetaminophen 5-325 MG HYDROcodone-Acetaminophen 5-325 MG 12/31/2020 12:00:00 AM EDT 1.0 {tablet_as_needed} suspended HYDROcodone-Acetaminophen 5- 325 MG eCW1 ([facility]) HYDROcodone Bitartrate ER 10 MG HYDROcodone Bitartrate ER 10 MG 12/31/2020 12:00:00 AM EDT 1.0 {capsule} suspended HYDROcodone Bitartrate ER 10 MG eCW1 ([facility]) Acetaminophen 325 MG / Hydrocodone Bee trate 5 MG Oral Tablet HYDROcodone- Acetaminophen 5-325 MG HYDROcodone-Acetaminophen 5-325 MG 12/31/2020 12:00:00 AM EDT 1.0 {tablet_as_needed} active HYDROcodone-Acetaminophen 5-325 MG eCW1 ([facility]) Acetaminophen 325 MG / Hydrocodone Bee trate 5 MG Oral Tablet HYDROcodone- Acetaminophen 5-325 MG HYDROcodone-Acetaminophen 5-325 MG 12/31/2020 12:00:00 AM EDT 1.0 {tablet_as_needed} active HYDROcodone-Acetaminophen 5-325 MG eCW1 ([facility]) HYDROcodone Bitartrate ER 10 MG HYDROcodone Bitartrate ER 10 MG 12/31/2020 12:00:00 AM EDT 1.0 {capsule} active HYDROcodone Bitartrate ER 10 MG eCW1 ([facility]) HYDROcodone Bitartrate ER 10 MG HYDROcodone Bitartrate ER 10 MG 12/31/2020 12:00:00 AM EDT 1.0 {capsule} active HYDROcodone Bitartrate ER 10 MG eCW1 ([facility]) Acetaminophen 325 MG / Hydrocodone Bee trate 5 MG Oral Tablet HYDROcodone- Acetaminophen 5-325 MG HYDROcodone-Acetaminophen 5-325 MG 12/31/2020 12:00:00 AM EDT 1.0 {tablet_as_needed} active eCW1 ([facility]) Acetaminophen 325 MG / Hydrocodone Bee trate 5 MG Oral Tablet HYDROcodone- Acetaminophen 5-325 MG HYDROcodone-Acetaminophen 5-325 MG 12/31/2020 12:00:00 AM EDT 1.0 {tablet_as_needed} suspended HYDROcodone-Acetaminophen 5- 325 MG eCW1 ([facility]) Acetaminophen 325 MG / Hydrocodone Bee trate 5 MG Oral Tablet HYDROcodone- Acetaminophen 5-325 MG HYDROcodone-Acetaminophen 5-325 MG 12/31/2020 12:00:00 AM EDT 1.0 {tablet_as_needed} active HYDROcodone-Acetaminophen 5-325 MG eCW1 ([facility]) Acetaminophen 325 MG / Hydrocodone Bee trate 5 MG Oral Tablet HYDROcodone- Acetaminophen 5-325 MG HYDROcodone-Acetaminophen 5-325 MG 12/31/2020 12:00:00 AM EDT 1.0 {tablet_as_needed} suspended HYDROcodone-Acetaminophen 5- 325 MG eCW1 ([facility]) Acetaminophen 325 MG / Hydrocodone Bee trate 5 MG Oral Tablet HYDROcodone- Acetaminophen 5-325 MG HYDROcodone-Acetaminophen 5-325 MG 12/31/2020 12:00:00 AM EDT 1.0 {tablet_as_needed} suspended eCW1 ([facility]) HYDROcodone Bitartrate ER 10 MG HYDROcodone Bitartrate ER 10 MG 12/31/2020 12:00:00 AM EDT 1.0 {capsule} active HYDROcodone Bitartrate ER 10 MG eCW1 ([facility]) HYDROcodone Bitartrate ER 10 MG HYDROcodone Bitartrate ER 10 MG 12/31/2020 12:00:00 AM EDT 1.0 {capsule} active eCW1 ([facility]) HYDROcodone Bitartrate ER 10 MG HYDROcodone Bitartrate ER 10 MG 12/31/2020 12:00:00 AM EDT 1.0 {capsule} suspended HYDROcodone Bitartrate ER 10 MG eCW1 ([facility]) Acetaminophen 325 MG / Hydrocodone Bee trate 5 MG Oral Tablet HYDROcodone- Acetaminophen 5-325 MG HYDROcodone-Acetaminophen 5-325 MG 12/31/2020 12:00:00 AM EDT 1.0 {tablet_as_needed} suspended HYDROcodone-Acetaminophen 5- 325 MG eCW1 ([facility]) HYDROcodone Bitartrate ER 10 MG HYDROcodone Bitartrate ER 10 MG 12/31/2020 12:00:00 AM EDT 1.0 {capsule} active HYDROcodone Bitartrate ER 10 MG eCW1 ([facility]) HYDROcodone Bitartrate ER 10 MG HYDROcodone Bitartrate ER 10 MG 12/31/2020 12:00:00 AM EDT 1.0 {capsule} suspended HYDROcodone Bitartrate ER 10 MG eCW1 ([facility]) Acetaminophen 325 MG / Hydrocodone Bee trate 5 MG Oral Tablet HYDROcodone- Acetaminophen 5-325 MG HYDROcodone-Acetaminophen 5-325 MG 12/31/2020 12:00:00 AM EDT 1.0 {tablet_as_needed} active HYDROcodone-Acetaminophen 5-325 MG eCW1 ([facility]) Acetaminophen 325 MG / Hydrocodone Bitartrate 5 [...] 1.0 {tablet_as_needed} active HYDROcodone-Acetaminophen 5-325 MG eCW1 ([facility]) HYDROcodone Bitartrate ER 10 MG HYDROcodone Bitartrate ER 10 MG 12/31/2020 12:00:00 AM EDT 1.0 {capsule} active HYDROcodone Bitartrate ER 10 MG eCW1 ([facility]) 100 mg 12/29/2020 12:00:00 AM EDT capsule 60 TAKE ONE CAPSULE BY MOUTH TWO TIMES A DAY TAKE ONE CAPSULE BY MOUTH TWO TIMES A DAY SOLD: 12/29/2020 [facility] 17 gram/dose 12/29/2020 12:00:00 AM EDT [...] DAILY DOSE = FOUR TABLETS SOLD: 12/27/2020 [facility] 5,000 unit/mL 12/25/2020 12:00:00 AM EDT [...] active Heparin Sodium (Porcine) 5000 UNIT/ML eCW1 ([facility]) heparin sodium, porcine 5000 UNT/ML Inje ctable Solution Heparin Sodium (Porcine) 5000 UNIT/ML Heparin Sodium (Porcine) 5000 UNIT/ML 12/24/2020 12:00:00 AM EDT 1.0 {ml} suspended eCW1 ([facility]) heparin sodium, porcine 5000 UNT/ML Inje ctable Solution Heparin Sodium (Porcine) 5000 UNIT/ML Heparin Sodium (Porcine) 5000 UNIT/ML 12/24/2020 12:00:00 AM EDT 1.0 {ml} suspended Heparin Sodiu m (Porcine) 5000 UNIT/ML eCW1 ([facility]) heparin sodium, porcine 5000 UNT/ML Inje ctable Solution Heparin Sodium (Porcine) 5000 UNIT/ML Heparin Sodium (Porcine) 5000 UNIT/ML 12/24/2020 12:00:00 AM EDT 1.0 {ml} suspended Heparin Sodiu m (Porcine) 5000 UNIT/ML eCW1 ([facility]) heparin sodium, porcine 5000 UNT/ML Inje ctable Solution Heparin Sodium (Porcine) 5000 UNIT/ML Heparin Sodium (Porcine) 5000 UNIT/ML 12/24/2020 12:00:00 AM EDT 1.0 {ml} active Heparin Sodium (Porcine) 5000 UNIT/ML eCW1 ([facility]) heparin sodium, porcine 5000 UNT/ML Inje ctable Solution Heparin Sodium (Porcine) 5000 UNIT/ML Heparin Sodium (Porcine) 5000 UNIT/ML 12/24/2020 12:00:00 AM EDT 1.0 {ml} suspended Heparin Sodiu m (Porcine) 5000 UNIT/ML eCW1 ([facility]) heparin sodium, porcine 5000 UNT/ML Inje ctable Solution Heparin Sodium (Porcine) 5000 UNIT/ML Heparin Sodium (Porcine) 5000 UNIT/ML 12/24/2020 12:00:00 AM EDT 1.0 {ml} active Heparin Sodium (Porcine) 5000 UNIT/ML eCW1 ([facility]) heparin sodium, porcine 5000 UNT/ML Inje ctable Solution Heparin Sodium (Porcine) 5000 UNIT/ML Heparin Sodium (Porcine) 5000 UNIT/ML 12/24/2020 12:00:00 AM EDT 1.0 {ml} suspended Heparin Sodiu m (Porcine) 5000 UNIT/ML eCW1 ([facility]) heparin sodium, porcine 5000 UNT/ML Inje ctable Solution Heparin Sodium (Porcine) 5000 UNIT/ML Heparin Sodium (Porcine) 5000 UNIT/ML 12/24/2020 12:00:00 AM EDT 1.0 {ml} active Heparin Sodium (Porcine) 5000 UNIT/ML eCW1 ([facility]) heparin sodium, porcine 5000 UNT/ML Inje ctable Solution Heparin Sodium (Porcine) 5000 UNIT/ML Heparin Sodium (Porcine) 5000 UNIT/ML 12/24/2020 12:00:00 AM EDT 1.0 {ml} active Heparin Sodium (Porcine) 5000 UNIT/ML eCW1 ([facility]) heparin sodium, porcine 5000 UNT/ML Inje ctable Solution Heparin Sodium (Porcine) 5000 UNIT/ML Heparin Sodium (Porcine) 5000 UNIT/ML 12/24/2020 12:00:00 AM EDT 1.0 {ml} active Heparin Sodium (Porcine) 5000 UNIT/ML eCW1 ([facility]) heparin sodium, porcine 5000 UNT/ML Inje ctable Solution Heparin Sodium (Porcine) 5000 UNIT/ML Heparin Sodium (Porcine) 5000 UNIT/ML 12/24/2020 12:00:00 AM EDT 1.0 {ml} active Heparin Sodium (Porcine) 5000 UNIT/ML eCW1 ([facility]) heparin sodium, porcine 5000 UNT/ML Inje ctable Solution Heparin Sodium (Porcine) 5000 UNIT/ML Heparin Sodium (Porcine) 5000 UNIT/ML 12/24/2020 12:00:00 AM EDT 1.0 {ml} active eCW1 ([facility]) heparin sodium, porcine 5000 UNT/ML Inje ctable Solution Heparin Sodium (Porcine) 5000 UNIT/ML Heparin Sodium (Porcine) 5000 UNIT/ML 12/24/2020 12:00:00 AM EDT 1.0 {ml} active Heparin Sodium (Porcine) 5000 UNIT/ML eCW1 ([facility]) heparin sodium, porcine 5000 UNT/ML Inje ctable Solution Heparin Sodium (Porcine) 5000 UNIT/ML Heparin Sodium (Porcine) 5000 UNIT/ML 12/24/2020 12:00:00 AM EDT 1.0 {ml} suspended Heparin Sodiu m (Porcine) 5000 UNIT/ML eCW1 ([facility]) heparin sodium, porcine 5000 UNT/ML Inje ctable Solution Heparin Sodium (Porcine) 5000 UNIT/ML Heparin Sodium (Porcine) 5000 UNIT/ML 12/24/2020 12:00:00 AM EDT 1.0 {ml} active Heparin Sodium (Porcine) 5000 UNIT/ML eCW1 ([facility]) heparin sodium, porcine 5000 UNT/ML Inje ctable Solution Heparin Sodium (Porcine) 5000 UNIT/ML Heparin Sodium (Porcine) 5000 UNIT/ML 12/24/2020 12:00:00 AM EDT 1.0 {ml} active Heparin Sodium (Porcine) 5000 UNIT/ML eCW1 ([facility]) heparin sodium, porcine 5000 UNT/ML Inje ctable Solution Heparin Sodium (Porcine) 5000 UNIT/ML Heparin Sodium (Porcine) 5000 UNIT/ML 12/24/2020 12:00:00 AM EDT 1.0 {ml} suspended Heparin Sodiu m (Porcine) 5000 UNIT/ML eCW1 ([facility]) heparin sodium, porcine 5000 UNT/ML Inje ctable Solution Heparin Sodium (Porcine) 5000 UNIT/ML Heparin Sodium (Porcine) 5000 UNIT/ML 12/24/2020 12:00:00 AM EDT 1.0 {ml} active Heparin Sodium (Porcine) 5000 UNIT/ML eCW1 ([facility]) heparin sodium, porcine 5000 UNT/ML Inje ctable Solution Heparin Sodium (Porcine) 5000 UNIT/ML Heparin Sodium (Porcine) 5000 UNIT/ML 12/24/2020 12:00:00 AM EDT 1.0 {ml} active Heparin Sodium (Porcine) 5000 UNIT/ML eCW1 ([facility]) Heparin Sodium (Porcine) 5000 unit/mL [facility] 12/18/2020 12:00:00 AM EDT active Heparin Sodium (Porcine) 5000 un it/mL eCW1 ([facility]) Heparin Sodium (Porcine) 5000 unit/mL [facility] 12/18/2020 12:00:00 AM EDT active eCW1 ([facility]) Heparin Sodium (Porcine) 5000 unit/mL [facility] 12/18/2020 12:00:00 AM EDT suspended Heparin Sodium (Porcine) 5000 un it/mL eCW1 ([facility]) Heparin Sodium (Porcine) 5000 unit/mL [facility] 12/18/2020 12:00:00 AM EDT active Heparin Sodium (Porcine) 5000 un it/mL eCW1 ([facility]) Heparin Sodium (Porcine) 5000 unit/mL K 12/18/2020 12:00:00 AM EDT suspended Heparin Sodium (Porcine) 5000 un it/mL eCW1 ([facility]) Heparin Sodium (Porcine) 5000 unit/mL K 12/18/2020 12:00:00 AM EDT suspended Heparin Sodium (Porcine) 5000 un it/mL eCW1 ([facility]) Heparin Sodium (Porcine) 5000 unit/mL K 12/18/2020 12:00:00 AM EDT active Heparin Sodium (Porcine) 5000 un it/mL eCW1 ([facility]) Heparin Sodium (Porcine) 5000 unit/mL K 12/18/2020 12:00:00 AM EDT active Heparin Sodium (Porcine) 5000 un it/mL eCW1 ([facility]) Heparin Sodium (Porcine) 5000 unit/mL K 12/18/2020 12:00:00 AM EDT active Heparin Sodium (Porcine) 5000 un it/mL eCW1 ([facility]) Heparin Sodium (Porcine) 5000 unit/mL K 12/18/2020 12:00:00 AM EDT suspended Heparin Sodium (Porcine) 5000 un it/mL eCW1 ([facility]) Heparin Sodium (Porcine) 5000 unit/mL [facility] 12/18/2020 12:00:00 AM EDT active Heparin Sodium (Porcine) 5000 un it/mL eCW1 ([facility]) Heparin Sodium (Porcine) 5000 unit/mL [facility] 12/18/2020 12:00:00 AM EDT suspended Heparin Sodium (Porcine) 5000 un it/mL eCW1 ([facility]) Heparin Sodium (Porcine) 5000 unit/mL [facility] 12/18/2020 12:00:00 AM EDT active Heparin Sodium (Porcine) 5000 un it/mL eCW1 ([facility]) Heparin Sodium (Porcine) 5000 unit/mL [facility] 12/18/2020 12:00:00 AM EDT active Heparin Sodium (Porcine) 5000 un it/mL eCW1 ([facility]) Heparin Sodium (Porcine) 5000 unit/mL [facility] 12/18/2020 12:00:00 AM EDT active Heparin Sodium (Porcine) 5000 un it/mL eCW1 ([facility]) Heparin Sodium (Porcine) 5000 unit/mL [facility] 12/18/2020 12:00:00 AM EDT active Heparin Sodium (Porcine) 5000 un it/mL eCW1 ([facility]) Heparin Sodium (Porcine) 5000 unit/mL [facility] 12/18/2020 12:00:00 AM EDT active Heparin Sodium (Porcine) 5000 un it/mL eCW1 ([facility]) Heparin Sodium (Porcine) 5000 unit/mL UNK 12/18/2020 12:00:00 AM EDT active Heparin Sodium (Porcine) 5000 un it/mL eCW1 ([facility]) Heparin Sodium (Porcine) 5000 unit/mL UNK 12/18/2020 12:00:00 AM EDT suspended Heparin Sodium (Porcine) 5000 un it/mL eCW1 ([facility]) Heparin Sodium (Porcine) 5000 unit/mL UNK 12/18/2020 12:00:00 AM EDT active Heparin Sodium (Porcine) 5000 un it/mL eCW1 ([facility]) Heparin Sodium (Porcine) 5000 unit/mL UNK 12/18/2020 12:00:00 AM EDT suspended eCW1 ([facility]) 750 mg 12/17/2020 12:00:00 AM EDT tablet [...] Drugs Nystatin 100 UNT/MG Topical Powder Nystatin 103580 UNI T/GM Nystatin 898227 UNIT/GM 11/08/2020 12:00:00 AM EDT 1.0 {application} active Nystatin 005191 UNIT/GM eCW1 ([facility]) Nystatin 100 UNT/MG Topical Powder Nystatin 341152 UNI T/GM Nystatin 474222 UNIT/GM 11/08/2020 12:00:00 AM EDT 1.0 {application} active Nystatin 783895 UNIT/GM eCW1 ([facility]) Nystatin 100 UNT/MG Topical Powder Nystatin 790542 UNI T/GM Nystatin 958076 UNIT/GM 11/08/2020 12:00:00 AM EDT 1.0 {application} active Nystatin 607905 UNIT/GM eCW1 ([facility]) Nystatin 100 UNT/MG Topical Powder Nystatin 630779 UNI T/GM Nystatin 169559 UNIT/GM 11/08/2020 12:00:00 AM EDT 1.0 {application} act ash eCW1 ([facility]) Nystatin 100 UNT/MG Topical Powder Nystatin 545094 UNI T/GM Nystatin 506150 UNIT/GM 11/08/2020 12:00:00 AM EDT 1.0 {application} active Nystatin 677217 UNIT/GM eCW1 ([facility]) Nystatin 100 UNT/MG Topical Powder Nystatin 344631 UNI T/GM Nystatin 362295 UNIT/GM 11/08/2020 12:00:00 AM EDT 1.0 {application} suspended Nystatin 694031 UNIT/GM eCW1 ([facility]) Nystatin 100 UNT/MG Topical Powder Nystatin 793478 UNI T/GM Nystatin 553410 UNIT/GM 11/08/2020 12:00:00 AM EDT 1.0 {application} suspended Nystatin 849402 UNIT/GM eCW1 ([facility]) Nystatin 100 UNT/MG Topical Powder Nystatin 080570 UNI T/GM Nystatin 802683 UNIT/GM 11/08/2020 12:00:00 AM EDT 1.0 {application} active Nystatin 797402 UNIT/GM eCW1 ([facility]) Nystatin 100 UNT/MG Topical Powder Nystatin 094560 UNI T/GM Nystatin 073017 UNIT/GM 11/08/2020 12:00:00 AM EDT 1.0 {application} active Nystatin 710517 UNIT/GM eCW1 ([facility]) Nystatin 100 UNT/MG Topical Powder Nystatin 101697 UNI T/GM Nystatin 921807 UNIT/GM 11/08/2020 12:00:00 AM EDT 1.0 {application} active Nystatin 277259 UNIT/GM eCW1 ([facility]) Nystatin 100 UNT/MG Topical Powder Nystatin 308102 UNI T/GM Nystatin 764352 UNIT/GM 11/08/2020 12:00:00 AM EDT 1.0 {application} neil pended eCW1 ([facility]) Nystatin 100 UNT/MG Topical Powder Nystatin 008366 UNI T/GM Nystatin 156634 UNIT/GM 11/08/2020 12:00:00 AM EDT 1.0 {application} active Nystatin 565921 UNIT/GM eCW1 ([facility]) Nystatin 100 UNT/MG Topical Powder Nystatin 617667 UNI T/GM Nystatin 172923 UNIT/GM 11/08/2020 12:00:00 AM EDT 1.0 {application} active Nystatin 395494 UNIT/GM eCW1 ([facility]) Nystatin 100 UNT/MG Topical Powder Nystatin 548422 UNI T/GM Nystatin 724883 UNIT/GM 11/08/2020 12:00:00 AM EDT 1.0 {application} active Nystatin 586961 UNIT/GM eCW1 ([facility]) Nystatin 100 UNT/MG Topical Powder Nystatin 516054 UNI T/GM Nystatin 446744 UNIT/GM 11/08/2020 12:00:00 AM EDT 1.0 {application} active Nystatin 574950 UNIT/GM eCW1 ([facility]) Nystatin 100 UNT/MG Topical Powder Nystatin 462307 UNI T/GM Nystatin 224162 UNIT/GM 11/08/2020 12:00:00 AM EDT 1.0 {application} active Nystatin 352676 UNIT/GM eCW1 ([facility]) Nystatin 100 UNT/MG Topical Powder Nystatin 342561 UNI T/GM Nystatin 229605 UNIT/GM 11/08/2020 12:00:00 AM EDT 1.0 {application} active Nystatin 130225 UNIT/GM eCW1 ([facility]) Nystatin 100 UNT/MG Topical Powder Nystatin 721335 UNI T/GM Nystatin 215801 UNIT/GM 11/08/2020 12:00:00 AM EDT 1.0 {application} suspended Nystatin 435633 UNIT/GM eCW1 ([facility]) Nystatin 100 UNT/MG Topical Powder Nystatin 679541 UNI T/GM Nystatin 447832 UNIT/GM 11/08/2020 12:00:00 AM EDT 1.0 {application} suspended Nystatin 688940 UNIT/GM eCW1 ([facility]) Nystatin 100 UNT/MG Topical Powder Nystatin 604736 UNI T/GM Nystatin 581705 UNIT/GM 11/08/2020 12:00:00 AM EDT 1.0 {application} active Nystatin 560863 UNIT/GM eCW1 ([facility]) Nystatin 100 UNT/MG Topical Powder Nystatin 084168 UNI T/GM Nystatin 114869 UNIT/GM 11/08/2020 12:00:00 AM EDT 1.0 {application} active Nystatin 135121 UNIT/GM eCW1 ([facility]) Nystatin 100 UNT/MG Topical Powder Nystatin 453853 UNI T/GM Nystatin 032864 UNIT/GM 11/08/2020 12:00:00 AM EDT 1.0 {application} suspended Nystatin 595214 UNIT/GM eCW1 ([facility]) Nystatin 100 UNT/MG Topical Powder Nystatin 317558 UNI T/GM Nystatin 249547 UNIT/GM 11/08/2020 12:00:00 AM EDT 1.0 {application} active Nystatin 041130 UNIT/GM eCW1 ([facility]) Nystatin 100 UNT/MG Topical Powder Nystatin 596785 UNI T/GM Nystatin 195585 UNIT/GM 11/08/2020 12:00:00 AM EDT 1.0 {application} active Nystatin 654885 UNIT/GM eCW1 ([facility]) Nystatin 100 UNT/MG Topical Powder Nystatin 031960 UNI T/GM Nystatin 887716 UNIT/GM 11/08/2020 12:00:00 AM EDT 1.0 {application} active Nystatin 739011 UNIT/GM eCW1 ([facility]) Nystatin 100 UNT/MG Topical Powder Nystatin 359674 UNI T/GM Nystatin 953086 UNIT/GM 11/08/2020 12:00:00 AM EDT 1.0 {application} suspended Nystatin 669364 UNIT/GM eCW1 ([facility]) 25 mg 10/25/2020 12:00:00 AM EDT tablet 30 TAKE ONE TABLET BY MOUTH ONCE DAILY NEEDED FOR ANXIETY TAKE ONE TABLET BY MOUTH ONCE DAILY N EEDED FOR ANXIETY SOLD: 10/25/2020 [facility] Clobetasol Prop Emollient Base 0.05 % Clobetasol Prop Emolli ent Base 0.05 % 10/09/2020 12:00:00 AM EDT active Clobetasol Prop Emollient Base 0.05 % eCW1 ([facility]) Clobetasol Prop Emollient Base 0.05 % Clobetasol Prop Emolli ent Base 0.05 % 10/09/2020 12:00:00 AM EDT active Clobetasol Prop Emollient Base 0.05 % eCW1 ([facility]) Clobetasol Prop Emollient Base 0.05 % Clobetasol Prop Emolli ent Base 0.05 % 10/09/2020 12:00:00 AM EDT active Clobetasol Prop Emollient Base 0.05 % eCW1 ([facility]) Clobetasol Prop Emollient Base 0.05 % Clobetasol Prop Emolli ent Base 0.05 % 10/09/2020 12:00:00 AM EDT suspended Clobetasol Prop Emollient Base 0.05 % eCW1 ([facility]) Clobetasol Prop Emollient Base 0.05 % Clobetasol Prop Emolli ent Base 0.05 % 10/09/2020 12:00:00 AM EDT active Clobetasol Prop Emollient Base 0.05 % eCW1 ([facility]) Clobetasol Prop Emollient Base 0.05 % Clobetasol Prop Emolli ent Base 0.05 % 10/09/2020 12:00:00 AM EDT active Clobetasol Prop Emollient Base 0.05 % eCW1 ([facility]) Clobetasol Prop Emollient Base 0.05 % Clobetasol Prop Emolli ent Base 0.05 % 10/09/2020 12:00:00 AM EDT active eCW1 ([facility]) Clobetasol Prop Emollient Base 0.05 % Clobetasol Prop Emolli ent Base 0.05 % 10/09/2020 12:00:00 AM EDT suspended Clobetasol Prop Emollient Base 0.05 % eCW1 ([facility]) Clobetasol Prop Emollient Base 0.05 % Clobetasol Prop Emolli ent Base 0.05 % 10/09/2020 12:00:00 AM EDT suspended Clobetasol Prop Emollient Base 0.05 % eCW1 ([facility]) Clobetasol Prop Emollient Base 0.05 % Clobetasol Prop Emolli ent Base 0.05 % 10/09/2020 12:00:00 AM EDT active Clobetasol Prop Emollient Base 0.05 % eCW1 ([facility]) Clobetasol Prop Emollient Base 0.05 % Clobetasol Prop Emolli ent Base 0.05 % 10/09/2020 12:00:00 AM EDT active Clobetasol Prop Emollient Base 0.05 % eCW1 ([facility]) Clobetasol Prop Emollient Base 0.05 % Clobetasol Prop Emolli ent Base 0.05 % 10/09/2020 12:00:00 AM EDT active Clobetasol Prop Emollient Base 0.05 % eCW1 ([facility]) Clobetasol Prop Emollient Base 0.05 % Clobetasol Prop Emolli ent Base 0.05 % 10/09/2020 12:00:00 AM EDT suspended Clobetasol Prop Emollient Base 0.05 % eCW1 ([facility]) Clobetasol Prop Emollient Base 0.05 % Clobetasol Prop Emolli ent Base 0.05 % 10/09/2020 12:00:00 AM EDT active Clobetasol Prop Emollient Base 0.05 % eCW1 ([facility]) Clobetasol Prop Emollient Base 0.05 % Clobetasol Prop Emolli ent Base 0.05 % 10/09/2020 12:00:00 AM EDT active Clobetasol Prop Emollient Base 0.05 % eCW1 ([facility]) Clobetasol Prop Emollient Base 0.05 % Clobetasol Prop Emolli ent Base 0.05 % 10/09/2020 12:00:00 AM EDT active Clobetasol Prop Emollient Base 0.05 % eCW1 ([facility]) Clobetasol Prop Emollient Base 0.05 % Clobetasol Prop Emolli ent Base 0.05 % 10/09/2020 12:00:00 AM EDT suspended Clobetasol Prop Emollient Base 0.05 % eCW1 ([facility]) Clobetasol Prop Emollient Base 0.05 % Clobetasol Prop Emolli ent Base 0.05 % 10/09/2020 12:00:00 AM EDT active Clobetasol Prop Emollient Base 0.05 % eCW1 ([facility]) Clobetasol Prop Emollient Base 0.05 % Clobetasol Prop Emolli ent Base 0.05 % 10/09/2020 12:00:00 AM EDT active Clobetasol Prop Emollient Base 0.05 % eCW1 ([facility]) Clobetasol Prop Emollient Base 0.05 % Clobetasol Prop Emolli ent Base 0.05 % 10/09/2020 12:00:00 AM EDT active Clobetasol Prop Emollient Base 0.05 % eCW1 ([facility]) Clobetasol Prop Emollient Base 0.05 % Clobetasol Prop Emolli ent Base 0.05 % 10/09/2020 12:00:00 AM EDT active Clobetasol Prop Emollient Base 0.05 % eCW1 ([facility]) Clobetasol Prop Emollient Base 0.05 % Clobetasol Prop Emolli ent Base 0.05 % 10/09/2020 12:00:00 AM EDT active Clobetasol Prop Emollient Base 0.05 % eCW1 ([facility]) Clobetasol Prop Emollient Base 0.05 % Clobetasol Prop Emolli ent Base 0.05 % 10/09/2020 12:00:00 AM EDT active Clobetasol Prop Emollient Base 0.05 % eCW1 ([facility]) Clobetasol Prop Emollient Base 0.05 % Clobetasol Prop Emolli ent Base 0.05 % 10/09/2020 12:00:00 AM EDT suspended eCW1 ([facility]) Clobetasol Prop Emollient Base 0.05 % Clobetasol Prop Emolli ent Base 0.05 % 10/09/2020 12:00:00 AM EDT active Clobetasol Prop Emollient Base 0.05 % eCW1 ([facility]) 0.05 % 10/09/2020 12:00:00 AM EDT cream 15 APPLY A THIN LAYER TO GROIN TWO TIMES A DAY FOR 7 DAYS APPLY A THIN LAYER TO GROIN TWO TIMES A DAY FOR 7 DAYS SOLD: 10/10/2020 [facility] Clobetasol Prop Emollient Base 0.05 % Clobetasol Prop Emolli ent Base 0.05 % 10/09/2020 12:00:00 AM EDT suspended Clobetasol Prop Emollient Base 0.05 % eCW1 ([facility]) Clobetasol Prop Emollient Base 0.05 % Clobetasol Prop Emolli ent Base 0.05 % 10/09/2020 12:00:00 AM EDT active Clobetasol Prop Emollient Base 0.05 % eCW1 ([facility]) Levaquin 750 MG UNK 09/24/2020 12:00:00 AM EST 1.0 {tablet} active Levaquin 750 MG eCW1 ([facility]) Levaquin 750 MG UNK 09/24/2020 12:00:00 AM EST 1.0 {tablet} active Levaquin 750 MG eCW1 ([facility]) Levaquin 750 MG UNK 09/24/2020 12:00:00 AM EST 1.0 {tablet} active Levaquin 750 MG eCW1 ([facility]) Levaquin 750 MG UNK 09/24/2020 12:00:00 AM EST 1.0 {tablet} active Levaquin 750 MG eCW1 ([facility]) 750 mg 09/24/2020 12:00:00 AM EST tablet 10 TAKE ONE TABLET BY MOUTH EVERY DAY FOR 10 DAYS TAKE ONE TABLET BY MOUTH EVERY DAY FOR 10 DAYS SOLD: 021 [facility] Levaquin 750 MG UNK 09/24/2020 12:00:00 AM EST 1.0 {tablet} active Levaquin 750 MG eCW1 ([facility]) 10-100 mg/5 mL 09/23/2020 12:00:00 AM EST liquid 180 TAKE 10ML BY MOUTH EVERY 4 HOURS NEEDED , MAXIMUM DAILY DOSE = 60ML TAKE 10ML BY MOUTH EVERY 4 HOURS NEEDED , MAXIMUM DAILY DOSE = 60ML SOLD: 09/23/2020 [facility] Cheratussin AC 100-10 MG/5ML UNK 09/23/2020 12:00:00 AM ES T 10.0 {ml_as_needed} active Cheratussin AC 10 0-10 MG/5ML eCW1 ([facility]) Cheratussin AC 100-10 MG/5ML UNK 09/23/2020 12:00:00 AM ES T 10.0 {ml_as_needed} active Cheratussin AC 10 0-10 MG/5ML eCW1 ([facility]) Cheratussin AC 100-10 MG/5ML UNK 09/23/2020 12:00:00 AM ES T 10.0 {ml_as_needed} active Cheratussin AC 10 0-10 MG/5ML eCW1 ([facility]) Cheratussin AC 100-10 MG/5ML UNK 09/23/2020 12:00:00 AM ES T 10.0 {ml_as_needed} active Cheratussin AC 10 0-10 MG/5ML eCW1 ([facility]) Cheratussin AC 100-10 MG/5ML UNK 09/23/2020 12:00:00 AM ES T 10.0 {ml_as_needed} active Cheratussin AC 10 0-10 MG/5ML eCW1 ([facility]) 20 mg 09/16/2020 12:00:00 AM EST tablet [...] AM EST active May Have - eCW1 ([facility]) May Have - UNK 09/10/2020 12:00:00 AM EST active May Have - eCW1 ([facility]) May Have - UNK 09/10/2020 12:00:00 AM EST active May Have - eCW1 ([facility]) May Have - UNK 09/10/2020 12:00:00 AM EST suspend ed May Have - eCW1 ([facility]) May Have - UNK 09/10/2020 12:00:00 AM EST active May Have - eCW1 ([facility]) May Have - UNK 09/10/2020 12:00:00 AM EST active May Have - eCW1 ([facility]) May Have - UNK 09/10/2020 12:00:00 AM EST suspend ed May Have - eCW1 ([facility]) May Have - UNK 09/10/2020 12:00:00 AM EST active May Have - eCW1 ([facility]) May Have - UNK 09/10/2020 12:00:00 AM EST active May Have - eCW1 ([facility]) May Have - UNK 09/10/2020 12:00:00 AM EST active May Have - eCW1 ([facility]) May Have - UNK 09/10/2020 12:00:00 AM EST suspend ed eCW1 ([facility]) May Have - UNK 09/10/2020 12:00:00 AM EST active May Have - eCW1 ([facility]) May Have - UNK 09/10/2020 12:00:00 AM EST active May Have - eCW1 ([facility]) May Have - UNK 09/10/2020 12:00:00 AM EST suspend ed May Have - eCW1 ([facility]) May Have - UNK 09/10/2020 12:00:00 AM EST active May Have - eCW1 ([facility]) May Have - UNK 09/10/2020 12:00:00 AM EST active May Have - eCW1 ([facility]) May Have - UNK 09/10/2020 12:00:00 AM EST active May Have - eCW1 ([facility]) May Have - UNK 09/10/2020 12:00:00 AM EST suspend ed May Have - eCW1 ([facility]) May Have - UNK 09/10/2020 12:00:00 AM EST active May Have - eCW1 ([facility]) May Have - UNK 09/10/2020 12:00:00 AM EST active May Have - eCW1 ([facility]) May Have - UNK 09/10/2020 12:00:00 AM EST active eCW1 ([facility]) May Have - UNK 09/10/2020 12:00:00 AM EST active May Have - eCW1 ([facility]) May Have - UNK 09/10/2020 12:00:00 AM EST suspend ed May Have - eCW1 ([facility]) May Have - UNK 09/10/2020 12:00:00 AM EST active May Have - eCW1 ([facility]) May Have - UNK 09/10/2020 12:00:00 AM EST suspend ed May Have - eCW1 ([facility]) May Have - UNK 09/10/2020 12:00:00 AM EST active May Have - eCW1 ([facility]) May Have - UNK 09/10/2020 12:00:00 AM EST active May Have - eCW1 ([facility]) May Have - UNK 09/10/2020 12:00:00 AM EST active May Have - eCW1 ([facility]) May Have - UNK 09/10/2020 12:00:00 AM EST active May Have - eCW1 ([facility]) May Have - UNK 09/10/2020 12:00:00 AM EST active May Have - eCW1 ([facility]) May Have - UNK 09/10/2020 12:00:00 AM EST active May Have - eCW1 ([facility]) May Have - UNK 09/10/2020 12:00:00 AM EST active May Have - eCW1 ([facility]) 25 mg 08/29/2020 12:00:00 AM EST tablet 60 TAKE 1/2 TO 1 TABLET BY MOUTH TWO TIMES A DAY NEEDED FOR ANXIETY TAKE 1/2 TO 1 TABLET BY MOUTH TWO TIMES A DAY NEEDED FOR ANXIETY SOLD: 08/30/2020 [facility] atorvastatin 20 MG Oral Tablet ATORVASTATIN CALCIUM [...] DAILY DOSE = FOUR TABLETS SOLD: 07/22/2020 [facility] Acetaminophen 325 MG / Oxycodone Hydroch loride 5 MG Oral Tablet Oxycodone- Acetaminophen 5-325 MG Oxycodone-Acetaminophen 5-325 MG 07/10/2020 12:00:00 A M EST 1.0 {tablet_as_needed} active O xycodone-Acetaminophen 5-325 MG eCW1 ([facility]) Acetaminophen 325 MG / Oxycodone Hydroch loride 5 MG Oral Tablet Oxycodone- Acetaminophen 5-325 MG Oxycodone-Acetaminophen 5-325 MG 07/10/2020 12:00:00 A M EST 1.0 {tablet_as_needed} active O xycodone-Acetaminophen 5-325 MG eCW1 ([facility]) Acetaminophen 325 MG / Oxycodone Hydroch loride 5 MG Oral Tablet Oxycodone- Acetaminophen 5-325 MG Oxycodone-Acetaminophen 5-325 MG 07/10/2020 12:00:00 A M EST 1.0 {tablet_as_needed} active O xycodone-Acetaminophen 5-325 MG eCW1 ([facility]) Acetaminophen 325 MG / Oxycodone Hydroch loride 5 MG Oral Tablet Oxycodone- Acetaminophen 5-325 MG Oxycodone-Acetaminophen 5-325 MG 07/10/2020 12:00:00 A M EST 1.0 {tablet_as_needed} active O xycodone-Acetaminophen 5-325 MG eCW1 ([facility]) Acetaminophen 325 MG / Oxycodone Hydroch loride 5 MG Oral Tablet Oxycodone- Acetaminophen 5-325 MG Oxycodone-Acetaminophen 5-325 MG 07/10/2020 12:00:00 A M EST 1.0 {tablet_as_needed} active O xycodone-Acetaminophen 5-325 MG eCW1 ([facility]) Acetaminophen 325 MG / Oxycodone Hydroch loride 5 MG Oral Tablet Oxycodone- Acetaminophen 5-325 MG Oxycodone-Acetaminophen 5-325 MG 07/10/2020 12:00:00 A M EST 1.0 {tablet_as_needed} active O xycodone-Acetaminophen 5-325 MG eCW1 ([facility]) 5-325 mg 07/10/2020 12:00:00 AM EST tablet [...] {tablet_as_needed} active O xycodone-Acetaminophen 5-325 MG eCW1 ([facility]) Acetaminophen 325 MG / Oxycodone Hydroch loride 5 MG Oral Tablet Oxycodone- Acetaminophen 5-325 MG Oxycodone-Acetaminophen 5-325 MG 07/10/2020 12:00:00 A M EST 1.0 {tablet_as_needed} active O xycodone-Acetaminophen 5-325 MG eCW1 ([facility]) tramadol hydrochloride 50 MG Oral Tablet TRAMADOL [...] MOUTH EVERY DAY AT BEDTIME SOLD: 06/09/2020 [facility] 113-14 mcg/actuation 05/30/2020 12:00:00 AM EST aerosol powdr breath activated 1 INHALE ONE PUFF BY MOUTH TWICE A DAY INHA LE ONE PUFF BY MOUTH TWICE A DAY SOLD: 06/01/2020 [facility] benzonatate 100 MG Oral Capsule [Tessalon Perles] Sophia qasim Perles 100 MG Tessalon Perles 100 MG 05/30/2020 12:00:00 AM EST 1.0 {capsule_as_nee ded} active Tessalon Perles 100 MG eCW1 ([facility]) meloxicam 7.5 MG Oral Tablet Meloxicam 7.5 MG Meloxicam 7.5 MG 05/30/2020 12:00:00 AM EST 1.0 {tablet} suspended Meloxicam 7.5 MG eCW1 ([facility]) 113-14 mcg/actuation 05/30/2020 12:00:00 AM EST aerosol powdr breath activated 1 INHALE ONE PUFF BY MOUTH TWICE A DAY INHA LE ONE PUFF BY MOUTH TWICE A DAY SOLD: 07/06/2020 [facility] benzonatate 100 MG Oral Capsule [Tessalon Perles] Sophia qasim Perles 100 MG Tessalon Perles 100 MG 05/30/2020 12:00:00 AM EST 1.0 {capsule_as_nee ded} suspended Tessalon Perles 100 MG eCW1 ([facility]) meloxicam 7.5 MG Oral Tablet Meloxicam 7.5 MG Meloxicam 7.5 MG 05/30/2020 12:00:00 AM EST 1.0 {tablet} suspended Meloxicam 7.5 MG eCW1 ([facility]) benzonatate 100 MG Oral Capsule [Tessalon Perles] Sophia qasim Perles 100 MG Tessalon Perles 100 MG 05/30/2020 12:00:00 AM EST 1.0 {capsule_as_nee ded} suspended Tessalon Perles 100 MG eCW1 ([facility]) benzonatate 100 MG Oral Capsule BENZONATATE 05/30/2020 12:00:00 AM EST capsule 30 TAKE ONE CAPSULE BY MOUTH THREE TIMES A DAY NEEDED TAKE ONE CAPSULE BY MOUTH THREE TIMES A DAY NEEDED SOLD: 06/01/2020 [facility] benzonatate 100 MG Oral Capsule [Tessalon Perles] Sophia qasim Perles 100 MG Tessalon Perles 100 MG 05/30/2020 12:00:00 AM EST 1.0 {capsule_as_nee ded} suspended Tessalon Perles 100 MG eCW1 ([facility]) 113-14 mcg/actuation 05/30/2020 12:00:00 AM EST aerosol powdr breath activated 1 INHALE ONE PUFF BY MOUTH TWICE A DAY INHA LE ONE PUFF BY MOUTH TWICE A DAY SOLD: 10/25/2020 [facility] meloxicam 7.5 MG Oral Tablet Meloxicam 7.5 MG Meloxicam 7.5 MG 05/30/2020 12:00:00 AM EST 1.0 {tablet} suspended Meloxicam 7.5 MG eCW1 ([facility]) benzonatate 100 MG Oral Capsule [Tessalon Perles] Sophia qasim Perles 100 MG Tessalon Perles 100 MG 05/30/2020 12:00:00 AM EST 1.0 {capsule_as_nee ded} suspended Tessalon Perles 100 MG eCW1 ([facility]) meloxicam 7.5 MG Oral Tablet Meloxicam 7.5 MG Meloxicam 7.5 MG 05/30/2020 12:00:00 AM EST 1.0 {tablet} suspended Meloxicam 7.5 MG eCW1 ([facility]) meloxicam 7.5 MG Oral Tablet Meloxicam 7.5 MG Meloxicam 7.5 MG 05/30/2020 12:00:00 AM EST 1.0 {tablet} suspended Meloxicam 7.5 MG eCW1 ([facility]) meloxicam 7.5 MG Oral Tablet Meloxicam 7.5 MG Meloxicam 7.5 MG 05/30/2020 12:00:00 AM EST 1.0 {tablet} suspended Meloxicam 7.5 MG eCW1 ([facility]) benzonatate 100 MG Oral Capsule [Tessalon Perles] Sophia qasim Perles 100 MG Tessalon Perles 100 MG 05/30/2020 12:00:00 AM EST 1.0 {capsule_as_nee ded} suspended Tessalon Perles 100 MG eCW1 ([facility]) 113-14 mcg/actuation 05/30/2020 12:00:00 AM EST aerosol powdr breath activated 1 INHALE ONE PUFF BY MOUTH TWICE A DAY INHA LE ONE PUFF BY MOUTH TWICE A DAY SOLD: 08/13/2020 [facility] benzonatate 100 MG Oral Capsule [Tessalon Perles] Sophia qasim Perles 100 MG Tessalon Perles 100 MG 05/30/2020 12:00:00 AM EST 1.0 {capsule_as_nee ded} suspended Tessalon Perles 100 MG eCW1 ([facility]) benzonatate 100 MG Oral Capsule [Tessalon Perles] Sophia qasim Perles 100 MG Tessalon Perles 100 MG 05/30/2020 12:00:00 AM EST 1.0 {capsule_as_nee ded} suspended Tessalon Perles 100 MG eCW1 ([facility]) meloxicam 7.5 MG Oral Tablet Meloxicam 7.5 MG Meloxicam 7.5 MG 05/30/2020 12:00:00 AM EST 1.0 {tablet} suspended Meloxicam 7.5 MG eCW1 ([facility]) meloxicam 7.5 MG Oral Tablet Meloxicam 7.5 MG Meloxicam 7.5 MG 05/30/2020 12:00:00 AM EST 1.0 {tablet} active Me loxicam 7.5 MG eCW1 ([facility]) atorvastatin 20 MG Oral Tablet Atorvastatin Calcium 20 MG Atorvastatin Calcium 20 MG 05/14/2020 12:00:00 AM EDT 1.0 {tablet} activ e Atorvastatin Calcium 20 MG eCW1 ([facility]) atorvastatin 20 MG Oral Tablet ATORVASTATIN CALCIUM 05/14/2020 1 2:00:00 AM EDT tablet 30 TAKE ONE TABLET BY MOUTH EVERY D AY TAKE ONE TABLET BY MOUTH EVERY DAY SOLD: 05/17/2020 [facility] atorvastatin 20 MG Oral Tablet Atorvastatin Calcium 20 MG Atorvastatin Calcium 20 MG 05/14/2020 12:00:00 AM EDT 1.0 {tablet} suspe nded Atorvastatin Calcium 20 MG eCW1 ([facility]) atorvastatin 20 MG Oral Tablet Atorvastatin Calcium 20 MG Atorvastatin Calcium 20 MG 05/14/2020 12:00:00 AM EDT 1.0 {tablet} suspe nded Atorvastatin Calcium 20 MG eCW1 ([facility]) atorvastatin 20 MG Oral Tablet Atorvastatin Calcium 20 MG Atorvastatin Calcium 20 MG 05/14/2020 12:00:00 AM EDT 1.0 {tablet} suspe nded Atorvastatin Calcium 20 MG eCW1 ([facility]) atorvastatin 20 MG Oral Tablet Atorvastatin Calcium 20 MG Atorvastatin Calcium 20 MG 05/14/2020 12:00:00 AM EDT 1.0 {tablet} suspe nded Atorvastatin Calcium 20 MG eCW1 ([facility]) atorvastatin 20 MG Oral Tablet Atorvastatin Calcium 20 MG Atorvastatin Calcium 20 MG 05/14/2020 12:00:00 AM EDT 1.0 {tablet} suspe nded Atorvastatin Calcium 20 MG eCW1 ([facility]) atorvastatin 20 MG Oral Tablet Atorvastatin Calcium 20 MG Atorvastatin Calcium 20 MG 05/14/2020 12:00:00 AM EDT 1.0 {tablet} suspe nded Atorvastatin Calcium 20 MG eCW1 ([facility]) atorvastatin 20 MG Oral Tablet Atorvastatin Calcium 20 MG Atorvastatin Calcium 20 MG 05/14/2020 12:00:00 AM EDT 1.0 {tablet} activ e Atorvastatin Calcium 20 MG eCW1 ([facility]) atorvastatin 20 MG Oral Tablet Atorvastatin Calcium 20 MG Atorvastatin Calcium 20 MG 05/14/2020 12:00:00 AM EDT 1.0 {tablet} suspe nded Atorvastatin Calcium 20 MG eCW1 ([facility]) atorvastatin 20 MG Oral Tablet Atorvastatin Calcium 20 MG Atorvastatin Calcium 20 MG 05/14/2020 12:00:00 AM EDT 1.0 {tablet} activ e Atorvastatin Calcium 20 MG eCW1 ([facility]) 40 mg 05/10/2020 12:00:00 AM EDT capsule,delayed [...] A DAY NEEDED FOR ANXIETY SOLD: 04/26/2020 [facility] 20 mg 04/26/2020 12:00:00 AM EDT capsule,delayed release (DR/EC) 60 TAKE TWO CAPSULES BY MOUTH EVERY DAY TAKE TWO CAPSULES BY MOUTH EVERY DAY SOLD: 04/26/2020 [facility] 750 mg 03/01/2020 12:00:00 AM EDT tablet 90 TAKE ONE TABLET BY MOUTH THREE TIMES A DAY TAKE ONE TABLET BY MOUTH THREE TIMES A DAY SOLD: 05/17/2020 [facility] 15 mg 02/25/2020 12:00:00 AM EDT tablet 30 TAKE ONE TABLET BY MOUTH EVERY DAY AT BEDTIME TAKE ONE TABLET BY MOUTH EVERY DAY AT BEDTIME SOLD: 05/14/2020 [facility] 10 mg 01/11/2020 12:00:00 AM [...] TWICE A DAY SOLD: 09/10/2020 [facility] 17 gram/dose 09/20/2019 12:00:00 AM EST powder 510 MIX 17GM (ONE CAPFUL) WITH 8 OUNCES OF FLUID ONCE DAILY MIX 17GM (ONE CAPFUL) WITH 8 OUNCES OF F LUID ONCE DAILY SOLD: 07/06/2020 [facility] 90 mcg/actuation 09/19/2019 12:00:00 AM EST HFA aerosol inha ler 18 INHALE TWO PUFFS BY MOUTH EVERY 6 HOURS NEEDED INHALE TWO PUFFS BY MOUTH EVERY 6 HOURS NEEDED SOLD: 07/06/2020 [facility] Insurance Providers Payer name Policy type / Coverage type Policy ID Covered green party ID Covered green party's relationship to dominguez Policy Dominguez Plan Information [facility] COMMUNITY PLAN [id number] SP [id number] [facility] Plan Commercial [id number] Self [id number] [employer] COMMUNITY PLAN MCDO [id number] SP [id number] [facility] I [id number] Self [id number] [employer] COMMUNITY PLAN MCDO [id number] SP [id number] [facility]) O [id number] S [id number] [facility]) O [id number] S [id number] MEDICAID [id number] SP [id number] [facility] COMMUNITY PLAN [id number] 18 [id number] ANSI-Medicaid [id number] ANSI-Medicaid [id number] ANSI-Medicaid [id number] ANSI-Medicaid [id number] [facility] [id number] SP [id number] ANSI-Medicaid [id number] ANSI-Medicaid [id number] ANSI-Medicaid [id number] ANSI-Medicaid [id number] ANSI-Medicaid [id number] ANSI-Medicaid [id number] ANSI-Medicaid [id number] ANSI-Medicaid [id number] ANSI-Medicaid [id number] ANSI-Medicaid [id number] [facility] COMMUNITY PLAN [facility] [id number] ANSI-Medicaid [id number] ANSI-Medicaid [id number] ANSI-Medicaid [id number] [facility] [id number] ANSI-Medicaid [id number] ANSI-Medicaid [id number] ANSI-Medicaid [id number] ANSI-Medicaid [id number] ANSI-Medicaid [id number] ANSI-Medicaid [id number] ANSI-Medicaid [id number] ANSI-Medicaid [id number] ANSI-Medicaid [id number] ANSI-Medicaid [id number] ANSI-Medicaid [id number] ANSI-Medicaid [id number] ANSI-Medicaid [id number] ANSI-Medicaid [id number] ANSI-Medicaid [id number] ANSI-Medicaid [id number] ANSI-Medicaid [id number] ANSI-Medicaid [id number] ANSI-Medicaid [id number] ANSI-Medicaid [id number] ANSI-Medicaid [id number] ANSI-Medicaid [id number] ANSI-Medicaid [id number] ANSI-Medicaid [id number] ANSI-Medicaid [id number] ANSI-Medicaid [id number] ANSI-Medicaid [id number] ANSI-Medicaid [id number] ANSI-Medicaid [id number] ANSI-Medicaid [id number] ANSI-Medicaid [id number] ANSI-Medicaid [id number] [facility] COMMUNITY PLAN [facility] [id number] SP [id number] ANSI-Medicaid [id number] ANSI-Medicaid [id number] [facility] COMMUNITY [facility] [id number] [facility] [id number] ANSI-Medicaid [id number] ANSI-Medicaid [id number] ANSI-Medicaid [id number] ANSI-Medicaid [id number] ANSI-Medicaid [id number] ANSI-Medicaid [id number] ANSI-Medicaid [id number] ANSI-Medicaid [id number] ANSI-Medicaid [id number] ANSI-Medicaid [id number] [facility] COMMUNTY PLAN [id number] ANSI-Medicaid [id number] ANSI-Medicaid [id number] [facility] Plan Medicaid [id number] Self [id number] [facility]ICAID [facility] [id number] D [id number] HC COMMUNITY PLAN XIX [id number] 18 [id number] ANSI-Medicaid [id number] ANSI-Medicaid [id number] ANSI-Medicaid [id number] ANSI-Medicaid [id number] ANSI-Medicaid [id number] ANSI-Medicaid [id number] ANSI-Medicaid [id number] ANSI-Medicaid [id number] ANSI-Medicaid [id number] ANSI-Medicaid [id number] ANSI-Medicaid [id number] ANSI-Medicaid [id number] MEDICAID [id number] SP [id number] ANSI-Medicaid [id number] ANSI-Medicaid [id number] ANSI-Medicaid [id number] ANSI-Medicaid [id number] MEDICAID -O/P [id number] [employer] COMMUNITY PLAN [facility] [id number] SP [id number] [facility] [id number] SP [id number] [facility] [id number] SP [id number] [facility] [id number] SP [id number] [facility] [id number] SP [id number] SELF PAY ONLY [id number] SP [id number] [facility] [id number] SP [id number] SELF PAY ONLY [id number] SP [id number] Medicaid [place] Medigap Part B [id number] Self [id number] [facility] MEDICAID MCD HMO [id number] S [id number] MEDICAID BETTY [id number] UN [employer] XIX -O [id number] 18 [id number] MEDICAID -O/P EMERGENCY ROOM [id number] MEDICAID M [id number] S [id number] Medicaid [place] Medigap Part B [id number] Self [id number] MEDICAID [id number] SP [id number] [facility] [id number] SP [id number] [facility]) O [id number] S [id number] [facility] COMMUNITY PLAN [id number] 18 [id number] [facility] [id number] SP [id number] [facility]) O [id number] S [id number] 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 Diagnosis 02/18/2021 02:36:00 PM EDT [facility] B17911 Nicotine dependence, cigarettes, uncompl icated Nicotine dependence, cigarettes, uncomplicated Diagnosis 02/18/2021 02:36:00 PM EDT [facility] I10 Essential (primary) hypertension Essential (primary) h ypertension Diagnosis 02/18/2021 02:36:00 PM EDT [facility] 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 Diagnosis 02/18/2021 02:36: 00 PM EDT [facility] F80852 Pain in right ankle and joints of right foot Pain in right ankle and joints of right foot Diagnosis 02/18/2021 02:36:00 PM EDT [facility] F66801 Unspecified asthma, uncomplicated Unspecified as thma, uncomplicated Diagnosis 02/17/2021 08:20:00 PM EDT [facility] J208 Acute bronchitis due to other specified organisms Acute bronchitis due to other specified organisms Diagnosis 02/17/2021 08:20:00 PM EDT [facility] R0600 Dyspnea, unspecified Dyspnea, unspecified Diagnosis 02/17/2021 08:20:00 PM EDT [facility] R1084 Generalized abdominal pain Generalized abdominal pain Diagnosis 02/10/2021 11:55:00 PM EDT [facility] Z6839 Body mass index [BMI] 39.0-39.9, adult B desi mass index [BMI] 39.0-39.9, adult Diagnosis 12/13/2020 04:26:00 PM EDT [facility] E669 Obesity, unspecified Obesity, unspecified Diagnosis 12/13/2020 04:26:00 PM EDT [facility] G8929 Other chronic pain Other chronic pain Diagnosis 04:26:00 PM EDT [facility] R1031 Right lower quadrant pain Right lower quadrant pain Di agnosis 12/13/2020 04:26:00 PM EDT [facility] Z86.711 [id number] Hx pulmonary embolism Problem 07/02/2020 12: 00:00 AM EST eCW1 ([facility]) F17.200 [id number] Smoker Problem 07/02/2020 12:00:00 AM ES T eCW1 ([facility]) Z79.01 [id number] Chronic anticoagulation Problem 07/02/2020 1 2:00:00 AM EST eCW1 ([facility]) J45.31 [id number] Mild persistent asthma with acute exac erbation Problem 05/30/2020 12:00:00 AM EST eCW1 ([facility]) E78.2 [id number] Hyperlipidemia, mixed Problem 05/14/2020 12: 00:00 AM EDT eCW1 ([facility]) Z86.718 [id number] H/O deep venous thrombosis Problem 12:00:00 AM EDT eCW1 ([facility]) Surgeries/Procedures Procedure Description Date Indications Data Source(s) Evaluation AND/OR management - established patient (procedur e) 03/12/2021 12:00:00 AM EDT [facility] ([facility]) Individual psychotherapy (regime/therapy) 03/03/2021 1 2:00:00 AM EDT [facility] ([facility]) Evaluation AND/OR management - established patient (procedur e) 01/14/2021 12:00:00 AM EDT [facility] ([facility]) Individual psychotherapy (regime/therapy) 01/02/2021 1 2:00:00 AM EDT [facility]) Individual psychotherapy (regime/therapy) 01/02/2021 1 2:00:00 AM EDT [facility] ([facility]) Individual psychotherapy (regime/therapy) 12/03/2020 1 2:00:00 AM [facility]) Individual psychotherapy (regime/therapy) 12/03/2020 1 2:00:00 AM EDT [facility] ([facility]) Individual psychotherapy (regime/therapy) 11/18/2020 1 2:00:00 AM EDT [facility] ([facility]) Individual psychotherapy (regime/therapy) 11/18/2020 1 2:00:00 AM EDT [facility] ([facility]) Individual psychotherapy (regime/therapy) 11/18/2020 1 2:00:00 AM EDT [facility] ([facility]) Evaluation AND/OR management - established patient (procedur e) 11/13/2020 12:00:00 AM EDT [facility] ([facility]) Evaluation AND/OR management - established patient (procedur e) 11/13/2020 12:00:00 AM EDT [facility] ([facility]) Evaluation AND/OR management - established patient (procedur e) 11/13/2020 12:00:00 AM EDT [facility] ([facility]) Evaluation AND/OR management - established patient (procedur e) 10/16/2020 12:00:00 AM EDT [facility] ([facility]) Evaluation AND/OR management - established patient (procedur e) 10/16/2020 12:00:00 AM EDT [facility] ([facility]) Evaluation AND/OR management - established patient (procedur e) 10/16/2020 12:00:00 AM EDT [facility] ([facility]) Individual psychotherapy (regime/therapy) 10/10/2020 1 2:00:00 AM EDT [facility] ([facility]) Individual psychotherapy (regime/therapy) 10/10/2020 1 2:00:00 AM EDT [facility] ([facility]) Individual psychotherapy (regime/therapy) 10/10/2020 1 2:00:00 AM EDT [facility] ([facility]) Individual psychotherapy (regime/therapy) 09/24/2020 1 2:00:00 AM EST [facility] ([facility]) Individual psychotherapy (regime/therapy) 09/24/2020 1 2:00:00 AM EST [facility] ([facility]) Individual psychotherapy (regime/therapy) 09/24/2020 1 2:00:00 AM EST [facility] ([facility]) Evaluation AND/OR management - established patient (procedur e) 09/16/2020 12:00:00 AM EST [employer] ([facility]) Evaluation AND/OR management - established patient (procedur e) 09/16/2020 12:00:00 AM EST [employer] ([facility]) Evaluation AND/OR management - established patient (procedur e) 09/16/2020 12:00:00 AM EST [employer] ([facility]) Individual psychotherapy (regime/therapy) 09/03/2020 1 2:00:00 AM EST [employer] ([facility]) Individual psychotherapy (regime/therapy) 09/03/2020 1 2:00:00 AM EST [employer] ([facility]) Individual psychotherapy (regime/therapy) 09/03/2020 1 2:00:00 AM EST [employer] ([facility]) Evaluation AND/OR management - established patient (procedur e) 08/29/2020 12:00:00 AM EST [employer] ([facility]) Evaluation AND/OR management - established patient (procedur e) 08/29/2020 12:00:00 AM EST [employer] ([facility]) Evaluation AND/OR management - established patient (procedur e) 08/29/2020 12:00:00 AM EST [employer] ([facility]) ECG ROUTINE ECG W/LEAST 12 LDS W/I&R 07/05/2020 12:00: 00 AM EST eCW1 ([facility]) Evaluation AND/OR management - established patient (procedur e) 06/05/2020 12:00:00 AM EST [employer] ([facility]) Evaluation AND/OR management - established patient (procedur e) 06/05/2020 12:00:00 AM EST [employer] ([facility]) Evaluation AND/OR management - established patient (procedur e) 06/05/2020 12:00:00 AM EST [employer] ([facility]) Evaluation AND/OR management - established patient (procedur e) 04/25/2020 12:00:00 AM [facility] Evaluation AND/OR management - established patient (procedur e) 04/25/2020 12:00:00 AM EDT [employer] ([facility]) Evaluation AND/OR management - established patient (procedur e) 04/25/2020 12:00:00 AM EDT [facility]) Results ID Date Data Source CHLAMYDIA & GC DNA AMPLIFICAT 04/07/2021 12:00:00 AM EDT eCW 1 ([facility]) Name Value Range Interpretation Code Description Data Rhonda rce(s) Supporting Document(s) Chlamydia trachomatis rRNA [Presence] in Unspecified specimen by Probe and target amplification method NEGATIVE NEGATIVE CHLAMYDIA DNA AMPLIFICATION eCW1 ([facility]) ID Date Data Source [id number] 02/20/2021 10:04:00 [place] [address] PHONE: [phone] FAX: [phone] Name .................. : HANANE El Acct Number.................. : [id number] ROOM. ................. : TR-08 MR Number ................... : [id number] Stay type ............. : E/R Discharge Date......... ... : 02/18/21 Admit Date ......... : 02/18/21 Admit Phys .................... : SUDHA Denis Date of ....... : 1980 Family Phys ................... : MARA Phone .................. : [phone] Age ................................ : 41 Film# .................. .:[id number] Sex ................................. : F Unsigned transcriptions are preliminary reports and do not represent a medical or legal document [place] [id number] COMPLETE:02/18/21 16:30 KNB [id number] Reason(s): Lower Extremity Tingling RIGHT LOWER EXTREMITY [...] By ROSI FALL MD , 02/20/21 10:04, [facility] Transcribe Initials: JB , Transcribe Date: 02/18/21 17:48, Dictation Date: Copy for: MARA SIMMS via fax Copy for: EMERGENCY DEPT via collbranm Copy for: 710 MED REC DISCHARGED Page 1 of 1 Name Value Range Interpretation Code Description Data Rhonda rce(s) Supporting Document(s) ID Date Data Source [id number] 02/18/2021 02:36:00 PM EDT [facility] 1 OrderSheet [facility] Emergency Department [address] [place] [address] Phone #: ext- [phone] 02/18/2021 14:35 Patient: [...] rce(s) Supporting Document(s) ID Date Data Source [id number] 02/18/2021 02:36:00 PM EDT [facility] 1 Medication Reconciliation Report [facility] Emergency Department [address] [place] [address] Phone #: ext- [phone] 02/18/2021 14:35 Patient: [...] rce(s) Supporting Document(s) ID Date Data Source [id number] 02/18/2021 02:36:00 PM EDT [facility] 1 Medication Administration Record [facility] Emergency Department [address] [place] [address] Phone #: ext- [phone] 02/18/2021 14:35 Patient: ELGIN KOO Sex: F : 1980 Age: 41yWeight: 104.3 kgHeight/Length: 65 inBMI: 38.3ALLERGIES: KOSTA Inhibitors, Acetaminophen, Cephalosporins, Motrin, Penicillins, SudafedDate/Time Medication Administered Medication Ordered Name Value Range Interpretation Code Description Data Rhonda rce(s) Supporting Document(s) ID Date Data Source [id number] 02/18/2021 02:36:00 PM EDT [facility] 1 General Instructions [facility] Emergency Department [address] [place] [address] Phone #: ext- [phone] 02/18/2021 14:35 [id number] Sex: F : 1980 Age: 41yChronic venous insufficiency of the right lower extremity with varicose veins and pain.INSTRUCTIONS(Try Compression stockings available at [employer]).Warnings: Further evaluation is necessary. It is very [...] chances of heart attack 2 General Instructions [facility] Emergency Department [address] [place] [address] Phone #: ext- [phone] 02/18/2021 14:35 Patient: ELGIN KOO Sex: F : 1980 Age: 41yand stroke.Risk [...] program or support group. 3 General Instructions [facility] Emergency Department [address] [place] [address] Phone #: ext- [phone] 02/18/2021 14:35 Patient: ELGIN KOO Sex: F : 1980 Age: 41y Be [...] more than a few 4 General Instructions [facility] Emergency Department [address] [place] [address] Phone #: ext- [phone] 02/18/2021 14:35 Patient: ELGIN KOO Sex: F [...] Sudden, severe headache with no known cause [employer]. [address] [place] [address]. All rights reserved. This information is not intended as asubstitute for professional medical care. Always follow your healthcare professional's instructions. You have been given the following additional information: Peripheral Artery Disease (PAD)(Electronically signed by MOSHE Lux 02/18/2021 22:29) Name Value Range Interpretation Code Description Data Rhonda rce(s) Supporting Document(s) ID Date Data Source [id number] 02/18/2021 02:36:00 PM EDT [facility] 1 Clinical Report - Nurses [facility] Emergency Department [address] [place] [address] Phone #: ext- [phone] 02/18/2021 14:35 Patient: ELGIN KOO Sex: F : 1980 Age: 41yTRIAGEArrived by EMS. Historian: patient. Unaccompanied. ( went to [facility] and told there is a 6 hour wait.drove back and called ambulance to come to [facility] for right lower leg blood clots, numbness paresthesia.).Triage time: 14:46 02/18/2021. Acuity: LEVEL 4.Chief Complaint: RIGHT LOWER EXTREMITY PAIN, NUMBNESS and TINGLING. Location ofsymptoms- right leg and right ankle.14:45 02/18/21. Alert. No acute distress.No injury occurred. This started last night.Treatment TECHNOLOGY ARCHITECT:Seen within the last 24 hours at another facility in the ED; seen for similar symptoms. (wait was too long).SEPSIS SCREEN: SEPSIS SCREEN NEGATIVE. No suspected or confirmed signs of infection present.ALDA COMA SCORE: 15- eyes open- spontaneous (4); [...] Marquez R.N.PROBLEMS:Bronchitis. 2 Clinical Report - Nurses [facility] Emergency Department [address] [place] [address] Phone #: ext- [phone] 02/18/2021 14:35 [id number] Sex: F : 1980 Age: 41ySeizure Disorder: (Stress induced).DVT - Deep Venous Thrombosis.Back Pain.Hypertension.Other Disease.Myofascial Strain.Fibromyalgia.Schizophrenia. --14:49 02/18/21 Raul Marquez R.N.The following entry was modified by Raul Marquez R.N., 14:49 02/18/21Anxiety Reaction. --14:49 02/18/21 Raul Marquez R.N.The following entry was modified by Raul Marquez R.N., 14:49 02/18/21PTSD. --14:49 02/18/21 Raul Marquez R.N..14:45 02/18/21. Medication/allergy information source: the patient's previous visit record. --14:51 02/18/21SoRaul conde R.N.ADDITIONAL SURGERIES:CERVICAL CANCER..Dental Surgery.Aysha filter.Partial hysterectomy.Previous Abdominal Surgery. --14:49 02/18/21 Raul Marquez R.N.Ohimked03:45 02/18/21.SOCIAL HX: Current every day light tobacco [...] no barriers. 3 Clinical Report - Nurses [facility] Emergency Department [address] [place] [address] Phone #: ext- [phone] 02/18/2021 14:35 [id number] Sex[facility] F : 1980 Age: 41y FALL RISK ASSESSMENT: Fall risk assessment completed. No risk factors identified. SKIN INTEGRITY ASSESSMENT: Skin integrity risk assessment completed. No skin integrity risk identified. --14:51 02/18/21 Raul Marquez R.N. Assessment 14:45 02/18/21. She states feels the same. --14:51 02/18/21 Raul Marquez R.N. Interventions 14:45 02/18/21. Identification band on patient. To treatment room. --14:51 02/18/21 Raul Marquez R.N.PHYSICAL [id number]:42 02/18/21. Ambulatory to room.GENERAL / NEURO / PSYCH: Oriented X 4. Alert. Appears in no acute distress. Appears anxious.EXTREMITIES: Extremity pulses are within normal limits. Extremities exhibit normal ROM.Neuro-vascular status intact to the extremity. No lower extremity edema. Normal gait. Right medialankle: tenderness, swelling and ecchym osis. No erythema.SKIN: Skin intact. Skin is warm and dry. --14:52 02/18/21 Raul aMrquez R.N.NURSING PROGRESS NOTES14:51 02/18/21. Reassurance given. Two [...] F. Pain level now 0/10. --16:11 02/18/21 [facility] Maximo Fan ER Tech1 16:07 02/18/21. Condition at departure: improved and stable. The goals identified in the patient's plan of care were met. Fall risk assessment completed. No risk factors identified. No learning barriers present. Discharge instructions provided and reviewed with the patient. Reviewed warnings. Reviewed medication(s). Treatments reviewed. Reviewed referral to a primary care physician. Patient verbalized understanding. Written instructions provided in French. The patient was discharged by the physician patent legal assistant. She was discharged home. She left ambulatory and via taxi. --16:12 02/18/21 Raul Marquez R.N. 4 Clinical Report - Nurses [facility] Emergency Department [address] [place] [address] Phone #: ext- [phone] 02/18/2021 14:35 Patient: ELGIN KOO Sex: F : 1980 Age: 41yLocked/Released at 02/18/2021 18:47 by Raul Marquez R.N. Name Value Range Interpretation Code Description Data Rhonda rce(s) Supporting Document(s) ID Date Data Source [id number] 02/18/2021 02:36:00 PM EDT [facility] 1 Clinical Report - Physicians/Mid Levels [facility] Emergency Department [address] [place] [address] Phone #: ext- [phone] 02/18/2021 14:35 Patient: ELGIN KOO Sex: F : 1980 Age: 41y Time Seen: 14:50 02/18/2021. Arrived- By ambulance. Historian- patient and EMS personnel.HISTORY OF PRESENT ILLNESS Chief Complaint: LOWER EXTREMITY PAIN, SWELLING and ALTERED SENSATION and ; PAIN, SWELLING and ALTERED SENSATION IN THE RIGHT ANKLE and RIGHT FOOT. This started today and is still present (went to [facility] and told there is a 6 hour wait. drove back and called ambulance to come to [facility] for right lower leg blood clots, [...] . Dental Surgery. Aysha filter. Partial hysterectomy. 2 Clinical Report - Physicians/Mid Levels [facility] Emergency Department [address] [place] [address] Phone #: ext- [phone] 02/18/2021 14:35 Patient: ELGIN KOO Sex: F : 1980 Age: 41y Previous Abdominal Surgery. Medications: Abilify Oral (Tablet 5 mg) 1 tablet, daily at bedtime, last dose [id number]. Atorvastatin Calcium Oral (Tablet 20 mg), [...] room air.Temp: 98.5 F. Pain level now: 5/10. Have been reviewed as normal. Oxygen saturation [...] to 3 Clinical Report - Physicians/Mid Levels [facility] Emergency Department [address] [place] [address] Phone #: ext- [phone] 02/18/2021 14:35 Patient: ELGIN KOO [facility] [id number] Sex: F : 1980 Age: 41y follow [...] and pain.INSTRUCTIONS (Try Compression stockings available at [employer]). Warnings: Further evaluation is necessary. It is [...] rce(s) Supporting Document(s) ID Date Data Source [id number] 02/18/2021 01:22:00 [place] [address] PHONE: [phone] FAX: [phone] Name .................. : HANANE El Acct Number.................. : [id number] ROOM. ................. : TR-03 MR Number ................... : [id number] Stay type ............. : E/R Discharge Date......... ... : 02/17/21 Admit Date ......... : 02/17/21 Admit Phys .................... : JAYCE YE Date of ....... : 1980 Family Phys ................... : Lockr Phone .................. : [phone] Age ................................ : 41 Film# .................. .:[id number] Sex ................................. : F Unsigned transcriptions are preliminary reports and do not represent a medical or legal document CHEST 2 VIEWS [id number] COMPLETE:02/17/21 21:29 MWB [id number] Reason(s): Cough FRONTAL AND LATERAL CHEST, 02/17/21: [...] MD , 02/18/21 13:22, AML Transcribe Initials: ALFREDO, Transcribe Date: 02/18/21 07:15, Dictation Date: Copy for: MARA SIMMS via fax Copy for: EMERGENCY DEPT via modem Copy for: 710 MED REC DISCHARGED Page 1 of 1 Name Value Range Interpretation Code Description Data Rhonda rce(s) Supporting Document(s) ID Date Data Source [id number] 02/17/2021 08:20:00 PM EDT [facility] 1 OrderSheet [facility] Emergency Department [address] [place] [address] Phone #: ext- [phone] 02/17/2021 20:18 Patient: [...] View STAT 20:51 02/17/2021 20:53 Leo(Oxygen?(No)) Mateusz Swatsworth Tavarez RN PA; Reason for ordering with [...] consideration given -- 20:51 02/17/2021 2 OrderSheet [facility] Emergency Department [address] [place] [address] Phone #: ext- [phone] 02/17/2021 20:18 Patient: [...] mg 21:54 02/17/2021 Cancelled: Physician Order 21:55 FidelHIGH ALERT Mateusz De La Garza PAMEDICATION) MOSHE;traMADol PO 100 21:55 02/17/2021 21:58 Yuko Amezquita R.N.;GENERAL ORDERSOrder Description Priority Entered Acknowledged Initialed[Electronically signed by Mateusz De La Garza (22:08 02/17/2021)][Electronically signed by Claritza Amezquita R.N. (22:11 02/17/2021)][Electronically locked by Claritza Amezquita R.N. (22:11 02/17/2021)] Name Value Range Interpretation Code Description Data Rhonda rce(s) Supporting Document(s) ID Date Data Source [id number] 02/17/2021 08:20:00 PM EDT [facility] 1 Medication Reconciliation Report [facility] Emergency Department [address] [place] [address] Phone #: ext- [phone] 02/17/2021 20:18 [...] Neb TX 2 unit dose, administered: 21:04 1Azithromycin [PO] PO 500 mg, administered: 21:57 02/17/2021Tramadol [PO] PO 100 mg, administered: 21:58 02/17/2021The following Medications were prescribed to the patient:Medrol (Jevon) 4 mg tablets in a dose pack Take 1 tablet as directed for 6 days -- Dispense 1 pack.Refills: 0. Substitution permitted.[facility] [address] - [address] [place] [address]. FaxNumber: [phone]. 2 Medication Reconciliation Report [facility] Emergency Department [address] [place] [address] Phone #: ext- [phone] 02/17/2021 20:18 Patient: ELGIN KOO Sex: F : 1980 Age: 41yazithromycin 250 mg tablet -- Take one tablet daily for 4 days, Dispense 4 tablet. Refills: 0.Substitution permitted.[facility] #19 - [id number] [facility] ; [place] [address]. FaxNumber: .albuterol sulfate HFA 90 mcg/actuation aerosol inhaler Inhale 2 puff four times a day -- Dispense 8.5gram. Refills: 0. Substitution permitted.[facility] #86 - [id number] [facility] ; [place] [address]. FaxNumber: . -- MOSHE Lux Name Value Range Interpretation Code Description Data Rhonda rce(s) Supporting Document(s) ID Date Data Source [id number] 02/17/2021 08:20:00 PM EDT [facility] 1 Medication Administration Record [facility] Emergency Department [address] [place] [address] Phone #: ext- [phone] 02/17/2021 20:18 Patient: ELGIN KOO Sex: F : 1980 Age: 41yWeight: 104.3 kgHeight/Length: 65 inBMI: 38.3ALLERGIES: KOSTA Inhibitors, Acetaminophen, Cephalosporins, Motrin, Penicillins, Sudafed Date/Time Medication Administered Medication OrderedStart NS [IV] NS IV 1000 mL Bolus: : Bolus [id number]:[id number] 02/17/2021 Dose: IV Fluids mL (X1)Leo Tavarez RN Rate: 1000 mL/hr over 1 hour(s)---- Dispensed: 1000 mL bagStop Site: #1 right AC22:06 02/17/2021Claritza Amezquita RAshleyNAshleyGiven SOLU-MEDROL [IVP] SOLU-Medrol 125 mg IV X1 [...] rce(s) Supporting Document(s) ID Date Data Source [id number] 02/17/2021 08:20:00 PM EDT [facility] 1 General Instructions [facility] Emergency Department [address] [place] [address] Phone #: ext- [phone] 02/17/2021 20:18 Patient: ELGIN KOO Sex: F : 1980 Age: 41yAcute bacterial [...] days -- Dispense 1 pack.Refills: 0. Substitution permitted.[facility] #22 - [address] [place] [address]. FaxNumber: .azithromycin 250 mg tablet -- Take one tablet daily for 4 days, Dispense 4 tablet. Refills: 0.Substitution permitted.[facility] #06 - [address] [place] [address]. FaxNumber: .albuterol sulfate HFA 90 mcg/actuation aerosol inhaler Inhale 2 puff four times a day -- Dispense 8.5gram. Refills: 0. Substitution permitted.Pharmacy - [facility] #37 - [address] [facility] ; [place] [id number]. FaxNumber: .Follow-up:Follow up with your doctor in two days. Call for the next available appointment. Reason for referral:evaluation and treatment. Summary of care provided to patient. 2 General Instructions [facility] Emergency Department [address] [place] [address] Phone #: ext- [phone] 02/17/2021 20:18 Patient: [...] istreated with an antibiotic. 3 General Instructions [facility] Emergency Department [address] [place] [address] Phone #: yts- [phone] 02/17/2021 20:18 Patient: ELGIN KOO Sex: F : 1980 Age: 41yHome careFollow these guidelines when caring for yourself at home: If your symptoms are severe, rest at home for the first 2 to 3 days. When you go back to your usual activities, don't let yourself get too tired. Don't smoke. Also stay away from secondhand smoke. You may use tpek-ggh-giconkk medicines to control fever or pain, unless [...] loosen mucus in your nose and lungs. Iaiv-svy-tsmedye cough, cold, and sore-throat medicines will not [...] or a stiff neck 4 General Instructions [facility] Emergency Department [address] [place] [address] Phone #: txk- [phone] 02/17/2021 20:18 Patient: ELGIN KOO Sex: F : 1980 Age: 41yCall 911Call 911 if any of these occur. Coughing up blood Weakness, drowsiness, headache, or stiff neck that get worse Trouble breathing, wheezing, or pain with breathing [phone] [employer]. [address] [place] [address], [place] [address]. All rights reserved. This information is not intended as asubstitute for professional medical care. Always follow your healthcare professional's instructions. You have been given the following additional information: Bronchitis, Antibiotic Treatment (Adult)(Electronically signed by MOSHE Lux 02/17/2021 22:08) Name Value Range Interpretation Code Description Data Rhonda rce(s) Supporting Document(s) ID Date Data Source [id number] 02/17/2021 08:20:00 PM EDT [facility] 1 Clinical Report - Nurses [facility] Emergency Department [address] [place] [address] Phone #: ext- [phone] 02/17/2021 20:18 Patient: [...] and ibuprofen. States she was just at [facility] butdidn't want to wait.).Treatment TECHNOLOGY ARCHITECT:None. --20:22 02/17/21 Johnny Powern20:19 02/17/21. BP: 117/64. [...] Oral (Capsule 100 mg), 3x a day. --20:22 02/17/21 Elo Power Eliquis Oral (Tablet 5 mg), 2x a day. --20:22 02/17/21 Elo Power.AllergiesACE Inhibitors.Acetaminophen. (SWEELS UP--MUST BE PREMEDICATED WITH BENADRYL)Cephalosporins.Motrin.Penicillins.Sudafed. --20:22 02/17/21 Elo Power.PROBLEMS:Back Pain. 2 Clinical Report - Nurses [facility] Emergency Department [address] [place] [address] Phone #: ext- [phone] 02/17/2021 20:18 Patient: ELGIN KOO Sex: F : 1980 Age: 41ySeizure Disorder: (Stress induced).DVT - Deep Venous Thrombosis.Anxiety Reaction.Hypertension.Fibromyalgia.Other Disease.PTSD.Schizophrenia.Myofascial Strain. --20:02/17/21 Jannet Elo.ADDITIONAL SURGERIES:CERVICAL CANCER.C- Section.Dental Surgery.Aysha filter.Partial hysterectomy.Previous Abdominal [...] factors identified. 3 Clinical Report - Nurses [facility] Emergency Department [address] [place] [address] Phone #: ext- [phone] 02/17/2021 20:18 -- Patient: ELGIN KOO Sex: F : 1980 Age: 41y SKIN INTEGRITY ASSESSMENT: Skin integrity risk assessment completed. No skin integrity risk identified. --20:22 02/17/21 Elo Power. Interventions Identification band on patient. --20:02/17/21 Elo Power.PHYSICAL ASSESSMENTAmbulatory to room.GENERAL / NEURO [...] tech and shown to the ED physician. --20:02/17/21 Elo Power 20:31 02/17/2021 Site #1 started via IV in the right antecubital space with an 20g angiocath, with aseptic technique and good blood return; one attempt. Saline lock flushed with 10 mL saline. --20:31 02/17/21 Leo aTvarez RN ( pt does have a dry [...] by RN. 4 Clinical Report - Nurses [facility] Emergency Department [address] [place] [address] Phone #: ext- [phone] 02/17/2021 20:18 Patient: [...] cough, PA notified.). --21:49 02/17/21 Claritza Amezquita R.N. 21:57 02/17/2021 Azithromycin PO Tablets 500 mg [...] bandaid applied. --22:08 02/17/21 Claritza Amezquita R.N. Alda Coma Scale: 15- eyes open- spontaneous (4); [...] The patient was discharged by the physician patent legal assistant. She was discharged home and accompanied by ticket sorter. She left via private vehicle. Exam Proctor driving. ( PT instructed not to drive due to receiving tramadol while in ER. Pt verbalizes understanding.). --22:10 02/17/21 Claritza Amezquita R.N. 22:08 02/17/21. BP: 110/59. MAP: 76. HR: 87. RR: 18. O2 saturation: 98%. Temp: 97.9 F. Pain level now: 12/02. Additional comments: pain worsens with cough. --22:10 02/17/21 Claritza Amezquita R.N.Locked/Released at 02/17/2021 22:11 by Claritza Amezquita R.N. 5 Clinical Report - Nurses [facility] Emergency Department [address] [place] [address] Phone #: ext- [phone] 02/17/2021 20:18 Patient: ELGIN KOO Sex: Jamaal : 1980 Age: 41y Name Value Range Interpretation Code Description Data Rhonda rce(s) Supporting Document(s) ID Date Data Source [id number] 02/17/2021 08:20:00 PM EDT [facility] 1 Clinical Report - Physicians/Mid Levels [facility] Emergency Department [address] [place] [address] Phone #: ext- [phone] 02/17/2021 20:18 Patient: ELGIN KOO Sex: Jamaal : 1980 Age: 41y Time Seen: 20:28 [...] and ibuprofen. States she was just at [facility] but didn't want to wait). Is [...] Roast Beef Sub on the wayhere from [facility]). The vomiting has occurred twice.PAST HISTORYProblems:Back Pain.Seizure Disorder. (Stress induced)DVT - Deep Venous Thrombosis.Hypertension.Fibromyalgia.Other Disease.Myofascial Strain. Additional Surgeries: CERVICAL CANCER. . Dental Surgery. Aysha filter. Partial hysterectomy. Previous Abdominal Surgery. 2 Clinical Report - Physicians/Mid Levels [facility] Emergency Department [address] [place] [address] Phone #: ext- [phone] 02/17/2021 20:18 Patient: ELGIN KOO Sex: F [...] Clear 3 Clinical Report - Physicians/Mid Levels [facility] Emergency Department [address] [place] [address] Phone #: ext- [phone] 02/17/2021 20:18 Patient: ELGIN KOO Sex: F [...] PROCEDURAL CONTROL VALID ){ KIT LOT # [id number] ){ KIT EXP DATE 06/07/21 )The Strep [...] and friend agrees with plan of care. Feb 17 2021. Disposition: Discharged home in good and improved condition (Feb 17 2021).CLINICAL IMPRESSION Acute bacterial bronchitis associated with asthma. 4 Clinical Report - Physicians/Mid Levels [facility] Emergency Department [address] [place] [address] Phone #: ext- [phone] 02/17/2021 20:18 Patient: ELGIN KOO [facility]#: [id number] Sex: F : 1980 Age: 41yINSTRUCTIONS Avoid [...] Dispense 1 pack. Refills: 0. Substitution permitted. [facility] [address] [place] [address]. . azithromycin 250 mg tablet -- Take one tablet daily for 4 days, Dispense 4 tablet. Refills: 0. Substitution permitted. [facility] # [address] [place] [address] ; [place] [address]. . albuterol sulfate HFA 90 mcg/actuation aerosol inhaler Inhale 2 puff four times a day -- Dispense 8.5 gram. Refills: 0. Substitution permitted. [facility] # [address] [place] [address] ; [place] [address]. . Follow-up: Follow up with your doctor in two days. Call for the next available appointment. Reason for referral: evaluation and treatment. Summary of care provided to patient. Understanding of the discharge instructions verbalized by patient.(Electronically signed by MOSHE Lux 02/17/2021 22:08) 5Clinical Report - Physicians/Mid Levels [facility] Emergency Department [address] [place] [address] Phone #: ext- [phone] 02/17/2021 20:18 Patient: ELGIN KOO Sex: F : 1980 Age: 41y Name Value Range Interpretation Code Description Data Rhonda rce(s) Supporting Document(s) ID Date Data Source [id number] 02/17/2021 09:13:00 PM EDT [facility] Name Value Range Interpretation Code Description Data Rhonda rce(s) Supporting Document(s) [facility] R [facility] COLOR yellow NORMAL: Yellow [facility] CLARITY clear NORMAL: Clear [facility] Specific gravity of Urine by Test strip 1.015 1.001 - 1.030 [facility] pH 6 5 - 9 [facility] al Glucose [Mass/volume] in Urine by Test strip NORM NORMAL: Negat [facility] Bilirubin.total [Presence] in Urine by Test strip NEG NORMAL: Negative [facility] Ketones [Presence] in Urine by Test strip NEG NORMAL: Negative [facility] Protein [Mass/volume] in Urine by Test strip NEG NORMAL: Negat [facility] Nitrite [Presence] in Urine by Test strip NEG NORMAL: Negative [facility] BLOOD 150 NORMAL: Negative [facility] LEUK EST NEG NORMAL: Negative [facility] Urobilinogen [Mass/volume] in Urine by Test strip NOR less emily n 1.0 mg/dL [facility] MICROSCOPIC See Below [facility] ital WBC 1 - 3 NORMAL: NONE SEEN [facility] Erythrocytes [#/volume] in Urine by Test strip 0 - 1 NORMAL: NON E SEEN [facility] EPITHELIAL MANY NORMAL: NONE SEEN A [facility] Amorphous sediment [Presence] in Urine sediment by Light madi roscopy RARE NORMAL: NONE SEEN [facility] ID Date Data Source [id number] 02/17/2021 09:05:00 PM EDT [facility] Name Value Range Interpretation Code Description Data Rhonda rce(s) Supporting Document(s) RAPID STREP NEGATIVE NORMAL: NEGATIVE [facility] RAPID STREP REENTER NEGATIVE NORMAL: NEGATIVE [facility] { PROCEDURAL CONTROL VALID ){ KIT LOT # [id number] ){ KIT EXP DATE 06/07/21 )The Strep [...] basis for treatment. ID Date Data Source [id number] 02/10/2021 11:55:00 PM EDT [facility] 1 OrderSheet [facility] Emergency Department [address] [place] [address] Phone #: ext- [phone] 02/10/2021 23:55 Patient: ELGIN KOO Sex: F : 1980 Age: 41yWEIGHT:106.5 kg (S)ALLERGIES: KOSTA Inhibitors, Acetaminophen, Cephalosporins, Motrin, Penicillins, SudafedCHIEF COMPLAINT: abdominal painDIAGNOSIS: Abdominal pain, ColitisLAB ORDERSOrder Description Priority Entered Acknowledged InitialedCBC w Diff STAT 23:57 02/10/2021 00:15 02/11/2021 Linda Black MD; Raul Marquez R.N.CMP STAT 23:57 02/10/2021 00:15 02/11/2021 Lnida Black MD; Raul Marquez R.N.Lactic Acid STAT [...] mL 23:57 02/10/2021 00:31 02/11/2021 2 OrderSheet [facility] Emergency Department [address] [place] [address] Phone #: ext- [phone] 02/10/2021 23:55 Patient: ELGIN KOO Sex: F : 1980 Age: 41yBolus : Bolus 1000 Linda Black MD; Catia Marquez (X1) R.NAshleyDuoNeb Neb Tx 3 00:00 02/11/2021 Cancelled: Physician Order 00:00mL (NOW x1) Linda Black MD; Linda Black MDCipro PO 500 mg 02:02/11/2021 02:35 Dominic Marquez Norma MD; Raul PaytonFlagyl PO 500 mg 02:02/11/2021 02:35 Dominic Marquez Norma MD; Raul PaytonGENERAL ORDERSOrder Description Priority Entered Acknowledged Initialed[Electronically signed by Linda Black MD (02:45 02/11/2021)][Electronically signed by Raul Marquez R.N. (03:02/11/2021)][Electronically locked by Raul Marquez R.N. (02/11/2021)] Name Value Range Interpretation Code Description Data Rhonda rce(s) Supporting Document(s) ID Date Data Source [id number] 02/10/2021 11:55:00 PM EDT [facility] 1 Medication Reconciliation Report [facility] Emergency Department [address] [place] [address] Phone #: ext- [phone] 02/10/2021 23:55 Patient: [...] -- Dispense 20 tablet. Refills: 0. Substitution permitted.[facility] [address] [place] [address]. FaxNumber: .Cipro 500 mg tablet Take 1 tablet twice a day as directed for 10 days -- Dispense 20 tablet. Refills: 0.Substitution permitted.[facility] [address] - [address] [place] [address]. FaxNumber: . -- Linda Black MD 2 Medication Reconciliation Report [facility] Emergency Department [address] [place] [address] Phone #: ext- [phone] 02/10/2021 23:55 Patient: ELGIN KOO Sex: F : 1980 Age: 41y Name Value Range Interpretation Code Description Data Rhonda rce(s) Supporting Document(s) ID Date Data Source [id number] 02/10/2021 11:55:00 PM EDT [facility] 1 Medication Administration Record [facility] Emergency Department [address] [place] [address] Phone #: ext- [phone] 02/10/2021 23:55 Patient: ELGIN KOO Sex: F : 1980 Age: 41yWeight: 106.5 kgHeight/Length: 65 inBMI: 39.1ALLERGIES: KOSTA Inhibitors, Acetaminophen, Cephalosporins, Motrin, Penicillins, Sudafed Date/Time Medication Administered Medication OrderedStart NS [IV] IV NS 1000 mL Bolus : Bolus 505620:31 02/11/2021 Dose: IV Fluids mL (X1)Raul Marquez, R.N. Rate: 1500 mL/hr over 40 minute(s)---- Dispensed: 1000 mL bagStop Site: #1 right AC01:28 02/11/2021Raul hernandez, R.N.Given CIPRO [PO] (CIPROFLOXACIN) Cipro PO 500 mg02:35 02/11/2021 Dose: 500 mg Tablets POSorbRaul angel, R.N.Given FLAGYL [PO] (METRONIDAZOLE) Flagyl PO 500 mg02:35 02/11/2021 Dose: 500 mg Tablets Raul Parnell, R.N. Name Value Range Interpretation Code Description Data Rhonda rce(s) Supporting Document(s) ID Date Data Source [id number] 02/10/2021 11:55:00 PM EDT [facility] 1 General Instructions [facility] Emergency Department [address] [place] [address] Phone #: ext- [phone] 02/10/2021 23:55 Patient: [...] -- Dispense 20 tablet. Refills: 0. Substitution permitted.[facility] [address]18 - [address] [facility] ; [place] [address]. FaxNumber: .Cipro 500 mg tablet Take 1 tablet twice a day as directed for 10 days -- Dispense 20 tablet. Refills: 0.Substitution permitted.[facility] #24 - [address] [facility] ; [place] [address]. FaxNumber: .Follow-up:Jamaal ollow up with your doctor in two days even if well. Call for an appointment. Reason for referral: evaluation.Summary of care provided to patient via paper.Understanding of the discharge instructions verbalized.Follow-up with: [facility], , , [address] [place] [address], [facility]iatric hospital Follow up in two days even if well. Call for an appointment. Reason for referral: evaluation. Summary of 2 General Instructions [facility] Emergency Department [address] [place] [address] Phone #: ext- [phone] 02/10/2021 23:55 Patient: ELGIN KOO Sex: F [...] on how things go, 3 General Instructions [facility] Emergency Department [address] [place] [address] Phone #: ext- [phone] 02/10/2021 23:55 Patient: [...] begin to improve in thenext 24 hours.Call [phone] if any of these occur: 4 General Instructions [facility] Emergency Department [address] [place] [address] Phone #: ext- [phone] 02/10/2021 23:55 Patient: ELGIN KOO Sex: F [...] or water and you are getting dehydrated [id number] [employer]. [address] [place] [address], [place] [address]. All rights reserved. This information is not intended as asubstitute for professional medical care. Always follow your healthcare professional's instructions.Irritable Bowel Syndrome 5 General Instructions [facility] [place] [address] Phone #: ext- [phone] 02/10/2021 23:55 Patient: [...] that may help you. 6 General Instructions [facility] Emergency Dep artment [address] [place] [address] Phone #: ext- [phone] 02/10/2021 23:55 [id number] Sex: F : 1980 Age: 41y Eat [...] For acute flare-ups of 7 General Instructions [facility] Emergency Department [address] [place] [address] Phone #: ext- [phone] 02/10/2021 23:55 [id number] Sex: F : 1980 Age: 41yyour illness, [...] or as directed by your healthcare provider [phone] [employer]. [address] [place] [address], [place] [address]. All rights reserved. This information is not intended as asubstitute for professional medical care. Always follow your healthcare professional's instructions. You have been given the following additional information: Abdominal Pain, Unknown Cause, (Female) Irritable Bowel Syndrome 8 General Instructions [facility] Emergency Department [address] [place] [address] Phone #: ext- [phone] 02/10/2021 23:55 Patient: ELGIN KOO Sex: F : 1980 Age: 41y(Electronically signed by Linda Black MD 02/11/2021 02:45) Name Value Range Interpretation Code Description Data Rhonda rce(s) Supporting Document(s) ID Date Data Source [id number] 02/10/2021 11:55:00 PM EDT [facility] 1 Clinical Report - Nurses [facility] Emergency Department [address] [place] [address] Phone #: ext- [phone] 02/10/2021 23:55 Patient: ELGIN KOO Sex: F : 1980 Age: 41yTRIAGEArrived by private vehicle. Historian: patient. Unaccompanied. ( presents with colitis flare up perpatient).Triage time: 00:02 02/11/2021. Acuity: LEVEL 3.Chief Complaint: ABDOMINAL PAIN, NAUSEA and DIARRHEA.Alert. No acute distress.This started last night.Treatment TECHNOLOGY ARCHITECT:(bath ).SEPSIS SCREEN: SEPSIS SCREEN NEGATIVE. No suspected or confirmed signs of infection present.--00:06 02/11/21 Raul Marquez, RShahida00:02 02/11/21. BP: 119/74. MAP: 89. HR: 74. [...] Venous Thrombosis. 2 Clinical Report - Nurses [facility] Emergency Department [address] [place] [address] Phone #: ext- [phone] 02/10/2021 23:55 Patient: ELGIN KOO Sex: F : 1980 Age: 41yHypertension.Seizure Disorder: (Stress induced).Myofascial Strain. --00:04 02/11/21 Raul Marquez R.N.Abdominal Pain: RuleOut. --02:35 02/11/21 Linda Black MDThe following entry was modified by Raul Marquez R.N., 00:04 02/11/21Anxiety Reaction. --00:04 02/11/21 Raul Marquez R.N.The following entry was modified by Linda Black MD, 02:35 02/11/21Abdominal Pain. --00:04 02/11/21 Raul Marquez R.N.The following entry was modified by Raul aMrquez R.N., 00:04 02/11/21Schizophrenia. --00:04 02/11/21 Raul Marquez R.N.The following entry was modified by Raul Marquez R.N., 00:04 02/11/21PTSD. --00:04 02/11/21 Raul Marquez R.N..Medication/allergy information source: the patient. --00:06 02/11/21 Raul Marquez R.N.ADDITIONAL SURGERIES:CERVICAL CANCER.C- Section.Dental Surgery.Midway filter.Partial hysterectomy.Previous Abdominal Surgery. --00:05 02/11/21 Raul Marquez R.N.HistorySOCIAL HX: Heavy tobacco smoker- [...] risk assessment completed. No risk factors identified. --00:02/11/21Raul Marquez R.N.AssessmentThe patient states feels the same. --00:02/11/21 Raul Marquez R.N.Interventions 3 Clinical Report - Nurses [facility] Emergency Department [address] [place] [address] Phone #: ext- [phone] 02/10/2021 23:55 [id number] Sex[facility] F : 1980 Age: 41y Identification band on patient. To treatment room. --00:02/11/21 Raul Marquez R.N.PHYSICAL [id number]:02/11/21. Ambulatory to room.GENERAL / NEURO / PSYCH: [...] Patient ready forevaluation- ED physician notified. --00:02/11/21 aRul Marquez R.N. 00:15 02/11/2021 Site #1 started [...] Marquez R.N. 4 Clinical Report - Nurses [facility] Emergency Department [address] [place] [address] Phone #: ext- [phone] 02/10/2021 23:55 Patient: ELGIN KOO Sex: F [...] Patient verbalized understanding. Written instructions provided in French. The patient was discharged by the physician. She was discharged home. She left ambulatory and via taxi. --02:56 02/11/21 Raul Marquez R.N.Locked/Released at 02/11/2021 03:31 by Raul Marquez R.N. Name Value Range Interpretation Code Description Data Rhonda rce(s) Supporting Document(s) ID Date Data Source [id number] 02/10/2021 11:55:00 PM EDT [facility] 1 Clinical Report - Physicians/Mid Levels [facility] Emergency Department [address] [place] [address] Phone #: ext- [phone] 02/10/2021 23:55 [id number] Sex: F : 1980 Age: 41y Arrived- [...] 1 tablet, daily at bedtime, last dose [id number] 2000. 2 Clinical Report - Physicians/Mid Levels [facility] Emergency Department [address] [place] [address] Phone #: ext- [phone] 02/10/2021 23:55 Patient: ELGIN KOO Sex: F [...] - 101) 3 Clinical Report - Physicians/Mid Levels [facility] Emergency Department [address] [place] [address] Phone #: ext- [phone] 02/10/2021 23:55 Patient: [...] Male GFR Interprentation 20-49 yrs >60 mL/min Qfkaym78-44 yrs >56 mL/min Normal 60-69 yrs >49 mL/min Normal 70-79yrs>42 mL/min Normal 80 and above >35 mL/min Normal Female GFRInterpretation 20-39 yrs >60 mL/min Normal 40-49 yrs >58 mL/minNormal 50-59 yrs >51 mL/min Normal 60-69 yrs >45 mL/min Znvafo99-10 yrs >39 mL/min Normal 80 and above >32 mL/min NormalLactic Acid: (JULI: 02/11/2021 00:15) ( MsgRcvd 02/11/2021 00:32) Final results Test Result Flag Units (Reference) LACTIC ACID 1.6 MMOL/L (0.2 - 2.2) 4 Clinical Report - Physicians/Mid Levels [facility] Emergency Department [address] [place] [address] Phone #: ext- [phone] 02/10/2021 23:55 Patient: ELGIN KOO Sex: F : 1980 Age: 41yLipase: (JULI: 02/11/2021 00:15) ( MsgRcvd 02/11/2021 00:43) Final results Test Result Flag Units (Reference) LIPASE 22 U/L (13 - 60)Magnesium: (JULI: 02/11/2021 00:15) ( MsgRcvd 02/11/2021 00:43) Final results Test Result Flag Units (Reference) MAGNESIUM 1.8 MG/DL (1.7 - 2.2)Urinalysis: (JULI: 02/11/2021 00:25) ( [facility] 02/11/2021 00:37) Final results Test Result Flag [...] IV Contrast Only: (JULI: 02/10/2021 23:57) ( [facility] 02/11/2021 02:21) Finalresults Exam CT ABD //T// PELVIS W/ [place] [address] ---------NAME--------- NUMBER SEX AGE ADMIT DISC. XRAY# F/C TYPE HANANE El [id number] F 41 02/10/21 [id number] X6B E/R DATE OF : 1980 M/R# [id number] #: [id number] TR-04 LOCATION: EMERGENCY DEPT TRANSCRIBED: 02/11/21 2:[address] ABD //T// PELVIS W/ IV ONLY [id number] COMPLETED:02/11/21 1:02 [facility] [id number] Reason(s): Abdominal Pain PHYS ICIAN: COONEYNORM R A D I O L O G Y R E P O R T PATIENT HISTORY: Fazal avalos Joshua - 02/11/2021 12:52:46 AM abd pain accumulated dlp 1298.4 mGy*cm est dlp 1287.5 mGy*cm Isovue 370 75mL lot [id number] NOVEMBER 2022, HYSTERECTOMY 12/27/2020. Time Out performed. Correct patient with 2 identifiers, type and amount of 5 Clinical Report - Physicians/[facility] Emergency Department [address] [place] [address] Phone #: ext- [phone] 02/10/2021 23:55 Patient: ELGIN KOO Sex: F : 1980 Age: 41ycontrast used, correct body part and side all verified prior to examination.-JJH/ ABD/PEL (DICOM Hx)EXAM: CT Abdomen and Pelvis with IV contrastCLINICAL HISTORY: Fazal Avalos Joshua - 02/11/2021 12:52:46 AMabd pain accumulated dlp 1298.4 mGy*cm est dlp 1287.5 mGy*cm Isovue 370 75mL [id number] NOVEMBER 2022, HYSTERECTOMY 12/27/2020. Time Out performed. [...] intravenous contrast. With; Isovue 370 75mL lot [id number] NovemberOMPARISON: None provided.FINDINGS:LUNG BASES: The lung bases [...] reconstructivetechniques. 6 Clinical Report - Physicians/Mid Levels [facility] Emergency Department [address] [place] [address] Phone #: ext- [phone] 02/10/2021 23:55 Patient: ELGIN KOO Sex: F [...] that have been prescribed to you.). Susanne cooley: Further evaluation is necessary. GENERAL WARNINGS: Return [...] Dispense 20 tablet. Refills: 0. Substitution permitted. [facility] # [address] [place] [address] ; [place] [address]. . Cipro 500 mg tablet Take 1 tablet twice a day as directed for 10 days -- Dispense 20 tablet. Refills: 0. Substitution permitted. [facility] #24 - [address] [facility] ; [place] [address]. 7 Clinical Report - Physicians/Mid Levels [facility] Emergency Department [address] [place] [address] Phone #: ext- [phone] 02/10/2021 23:55 Patient: ELGIN KOO Sex: F : 1980 Age: 41y . Follow-up: Follow up with your doctor in two days even if well. Call for an appointment. Reason for referral: evaluation. Summary of care provided to patient via paper. Understanding of the discharge instructions verbalized. Follow-up with: [facility], , , [address] [facility], , [place], [address] Follow up in two days even if well. Call for an appointment. Reason for referral: evaluation. Summary of care provided to patient via paper.(Electronically signed by Linda Black MD 02/11/2021 02:45) Name Value Range Interpretation Code Description Data Rhonda rce(s) Supporting Document(s) ID Date Data Source [id number] 02/11/2021 02:20:00 AM EDT [facility] [address] [place] [address] ---------NAME--------- NUMBER SEX AGE ADMIT DISC. XRAY# F/C TYPE HNAANE El [id number] F 41 02/10/21 [id number] X6B E/R DATE OF : 1980 M/R# [id number] #: [id number] TR-04 LOCATION: EMERGENCY DEPT TRANSCRIBED: 02/11/21 2:[address] ABD //T// PELVIS W/ IV ONLY 11115 COMPLETED:02/11/21 1:02 [facility] [id number] Reason(s): Abdominal Pain PHYSICIAN: ASHOK======= R A D I O L O G Y R E P O R T PATIENT HISTORY:Fazal avalos Joshua - 02/11/2021 12:52:46 AMabd pain accumulated dlp 1298.4 mGy*cm est dlp 1287.5 mGy*cm Isovue 370 75mL [id number] NOVEMBER 2022, HYSTERECTOMY 12/27/2020.Time Out performed. Correct patient with 2 identifiers, type and amount ofcontrast used, correct body part and side all verified prior to examination.-JJH/ ABD/PEL (DICOM Hx)EXAM: CT Abdomen and Pelvis with IV contrastCLINICAL HISTORY: Fazal Avalos Joshua - 02/11/2021 12:52:46 AMabd pain accumulated dlp 1298.4 mGy*cm est dlp 1287.5 mGy*cm Isovue 370 75mL [id number] NOVEMBER 2022, HYSTERECTOMY 12/27/2020. Time Out performed. [...] intravenous contrast. With; Isovue 370 75mL lot [id number] NovemberOMPARISON: None provided.FINDINGS:LUNG BASES: The lung bases [...] the use of imperative reconstructivetechniques.Electronically Signed By:Mykel Trivedi M.D. , RadiologistDate/Time: 02/11/21 02:20 Name Value Range Interpretation Code Description Data Rhonda rce(s) Supporting Document(s) ID Date Data Source [id number] 02/11/2021 12:36:00 AM EDT [facility] Name Value Range Interpretation Code Description Data Rhonda rce(s) Supporting Document(s) [facility] COL[facility] yellow NORMAL: Yellow [facility] CLARITY hazy NORMAL: Clear [facility] Specific gravity of Urine by Test strip 1.010 1.001 - 1.030 [facility] pH 6 5 - 9 [facility] al Glucose [Mass/volume] in Urine by Test strip NORM NORMAL: Negat [facility] Bilirubin.total [Presence] in Urine by Test strip NEG NORMAL: Negative [facility] Ketones [Presence] in Urine by Test strip NEG NORMAL: Negative [facility] Protein [Mass/volume] in Urine by Test strip NEG NORMAL: Negat [facility] Nitrite [Presence] in Urine by Test strip NEG NORMAL: Negative [facility] BLOOD 25 NORMAL: Negative [facility] LEUK EST 25 NORMAL: Negative [facility] Urobilinogen [Mass/volume] in Urine by Test strip NOR less emily n 1.0 mg/dL [facility] MICROSCOPIC See Below [facility] ital WBC 3 - 5 NORMAL: NONE SEEN [facility] Erythrocytes [#/volume] in Urine by Test strip 1 - 3 NORMAL: NON E SEEN [facility] EPITHELIAL MODERATE NORMAL: NONE SEEN [facility] Bacteria [Presence] in Urine sediment by Light microscopy 1+ SMALL NORMAL: NONE SEEN [facility] Mucus [Presence] in Urine sediment by Light microscopy 1+ NOR MAL: NONE SEEN [facility] ID Date Data Source [id number] 02/11/2021 12:47:00 AM EDT [facility] Name Value Range Interpretation Code Description Data Rhonda rce(s) Supporting Document(s) COMPREHENSIVE METABOLIC PANEL [facility] COMPREHENSIVE METABOLIC PANEL Sodium [Moles/volume] in Serum or Plasma 138 mEq/L 134 - 153 [facility] Potassium [Moles/volume] in Serum or Plasma 3.8 mEq/L 3.6 - 5.0 [facility] Chloride [Moles/volume] in Serum or Plasma 106 mEq/L 98 - 107 [facility] Carbon dioxide, total [Moles/volume] in Serum or Plasma 25 MEQ/L 22 - 30 [facility] Glucose [Mass/volume] in Serum or Plasma 101 MG/DL 70 - 99 H [facility] BUN 6 MG/DL 7 - 21 L [facility] al Creatinine [Mass/volume] in Serum or Plasma 0.7 MG/DL 0.7 - 1.5 [facility] BUN/CREAT 9 8 - 27 [facility] Protein [Mass/volume] in Serum or Plasma 6.2 G/DL 6.3 - 8.2 L [facility] Albumin [Mass/volume] in Serum or Plasma 4.2 G/DL 3.9 - 5.0 [facility] Globulin [Mass/volume] in Serum by calculation 2.0 GM/DL 2.4 - 3.2 L [facility] A/G RATIO 2.1 0.8 - 2.0 H [facility] Calcium [Mass/volume] in Serum or Plasma 9.0 MG/DL 8.4 - 10.2 [facility] Bilirubin.total [Mass/volume] in Serum or Plasma <0.7 MG/DL 0.2 - 1.3 [facility] Alkaline phosphatase [Enzymatic activity/volume] in Serum or Plasma 67 U/L 38 - 126 [facility] Aspartate aminotransferase [Enzymatic activity/volume] in Serum or Plasma 11 U/L 5 - 40 [facility] Alanine aminotransferase [Enzymatic activity/volume] in Seru m or Plasma 9 U/L 7 - 56 [facility] Anion gap 3 in Serum or Plasma 7.0 mmol/L 8.0 - 16.0 L [facility] AGE 41 yrs [facility] NON-AA GFR >60 mL/min [facility] AFR AMER GFR >60 mL/min [facility] Male GFR In terprentation 20-49 [...] >32 mL/min Normal ID Date Data Source [id number] 02/11/2021 12:43:00 AM EDT [facility] Name Value Range Interpretation Code Description Data Rhonda rce(s) Supporting Document(s) Magnesium [Mass/volume] in Serum or Plasma 1.8 MG/DL 1.7 - 2.2 [facility] ID Date Data Source [id number] 02/11/2021 12:43:00 AM EDT [facility] Name Value Range Interpretation Code Description Data Rhonda rce(s) Supporting Document(s) Lipase [Enzymatic activity/volume] in Serum or Plasma 22 U/L 13 - 60 [facility] ID Date Data Source [id number] 02/11/2021 12:37:00 AM EDT [facility] Name Value Range Interpretation Code Description Data Rhonda rce(s) Supporting Document(s) CBC W/AUTOMATED DIFF [facility] COMPLETE BLOOD COUNT Leukocytes [#/volume] in Blood by Automated count 5.9 10^3/uL 4.2 - 1 1.0 [facility] Erythrocytes [#/volume] in Blood by Automated count 4.59 10^6/uL 4. 20 - 5.40 [facility] Hemoglobin [Mass/volume] in Blood 14.2 g/dL 12.0 - 16.0 [facility] Hematocrit [Volume Fraction] of Blood by Automated count 39.7 % 3 7.0 - 47.0 [facility] Erythrocyte mean corpuscular volume [Entitic volume] by Auto mated count 86.5 fL 81.0 - 101 [facility] Erythrocyte mean corpuscular hemoglobin [Entitic mass] by Automated count 30.9 pg 27.0 - 34.0 [facility] Erythrocyte mean corpuscular hemoglobin concentration [Mass/volume] by Automated count 35.8 g/dL 31.0 - 36.0 [facility] Erythrocyte distribution width [Ratio] by Automated count 13.0 % 11.5 - 14.5 [facility] Platelets [#/volume] in Blood by Automated count 181 10^3/uL 150 - 45 0 [facility] Platelet mean volume [Entitic volume] in Blood by Automated count 9.9 fL 7.4 - 10.4 [facility] Neutrophils/100 leukocytes in Blood by Automated count 60.6 % 37. 0 - 80.0 [facility] Lymphocytes/100 leukocytes in Blood by Manual count 31.1 % 25.0 - 40.0 [facility] Monocytes/100 leukocytes in Blood by Automated count 5.6 % 3.0 - 8.0 [facility] Eosinophils/100 leukocytes in Blood by Automated count 2.0 % 0.0 - 7.0 [facility] Basophils/100 leukocytes in Blood by Automated count 0.5 % 0.0 - 2.5 [facility] %IG 0.2 % 0.0 - 0.0 H [facility] al %NRBC 0.0 % 0.0 - 0.0 [facility] al Neutrophils [#/volume] in Blood by Automated count 3.58 10^3/uL 2.00 - 6.90 [facility] Lymphocytes [#/volume] in Blood by Automated count 1.84 10^3/uL 0.60 - 3.40 [facility] Monocytes [#/volume] in Blood by Automated count 0.33 10^3/uL 0.00 - 0.90 [facility] Eosinophils [#/volume] in Blood by Automated count 0.12 10^3/uL 0.00 - 0.70 [facility] Basophils [#/volume] in Blood by Automated count 0.03 10^3/uL 0.00 - 0.20 [facility] #IG 0.01 10^3/uL 0.00 - 0.10 [facility] #NRBC 0.00 10^3/uL 0.00 - 0.00 [facility] MANUAL DIFF NOT INDICATED [facility] RBC MORPH NOT INDICATED [facility] spital ID Date Data Source [id number] 02/11/2021 12:32:00 AM EDT [facility] Name Value Range Interpretation Code Description Data Rhonda rce(s) Supporting Document(s) Lactate [Moles/volume] in Serum or Plasma 1.6 MMOL/L 0.2 - 2.2 [facility] ID Date Data Source [id number] 12/22/2020 08:20:00 AM EDT [facility] Name Value Range Interpretation Code Description Data Rhonda rce(s) Supporting Document(s) SARS-CoV-2 (COVID-19) RNA [Presence] in Respiratory specimen by MARTA with probe detection Not Detected [facility] This lab was ordered by [facility] and reported by [employer]. ID Date Data Source [id number] 12/13/2020 04:26:00 PM EDT [facility] 1 OrderSheet [facility] Emergency Department [address] [place] [address] Phone #: ext- [phone] 12/13/2020 16:23 Patient: [...] 17:03 12/13/2020 17:06 Rick Resendez Jack ; R.N.CBC w Diff STAT 17:03 12/13/2020 17:32 Deanna [...] Description Priority Entered Acknowledged Initialed 2 OrderSheet [facility] Emergency Department [address] [place] [address] Phone #: ext- [phone] 12/13/2020 16:23 Patient: ELGIN KOO Sex: F : 1980 Age: 40y[Electronically signed by Deanna Resendez R.N. (18:24 12/13/2020)][Electronically signed by Balaji Garcia (19:47 12/13/2020)][Electronically locked by Deanna Resendez R.N. (18:24 12/13/2020)] Name Value Range Interpretation Code Description Data Rhonda rce(s) Supporting Document(s) ID Date Data Source [id number] 12/13/2020 04:26:00 PM EDT [facility] 1 Medication Reconciliation Report [facility] Emergency Department [address] [place] [address] Phone #: ext- [phone] 12/13/2020 16:23 [id number] Sex[facility] F : 1980 Age: 40yWeight: 107.5 [...] rce(s) Supporting Document(s) ID Date Data Source [id number] 12/13/2020 04:26:00 PM EDT [facility] 1 Medication Administration Record [facility] Emergency Department [address] [place] [address] Phone #: ext- [phone] 12/13/2020 16:23 [id number] Sex[facility] F : 1980 Age: 40yWeight: 107.5 kgHeight/Length: 65 inBMI: 39.5ALLERGIES: KOSTA Inhibitors, Acetaminophen, Cephalosporins, Motrin, Penicillins, Sudafed Date/Time Medication Administered Medication OrderedGiven MORPHINE [IVP] Morphine IVP 4 mg (NOW x1, HIGH17:11 12/13/2020 Dose: 4 mg IVP ALERT MEDICATION)Deanna Resendez R.N. Site: #1 right Name Value Range Interpretation Code Description Data Rhonda rce(s) Supporting Document(s) ID Date Data Source [id number] 12/13/2020 04:26:00 PM EDT [facility] 1 General Instructions [facility] Emergency Department [address] [place] [address] Phone #: [phone]- [phone] 12/13/2020 16:23 Patient: ELGIN KOO Sex: F [...] of Abdominal Pain (Female) 2 General Instructions [facility] Emergency Department [address] [place] [address] Phone #: ext- [phone] 12/13/2020 16:23 Patient: ELGIN KOO Sex: F [...] for taking these medicines. 3 General Instructions [facility] Emergency Department [address] [place] [address] Phone #: ext- [phone] 12/13/2020 16:23 Patient: ELGIN KOO Sex: F : 1980 Age: 40yGeneral care Rest as much as you can [...] begin to improve in thenext 24 hours.Call [phone] if any of these occur: Trouble breathing Confusion Fainting or loss of consciousness Rapid heart rate 4 General Instructions [facility] Emergency Department [address] [place] [address] Phone #: ext- [phone] 12/13/2020 16:23 Patient: [...] or water and you are getting dehydrated [id number] [employer]. [address] [place] [address], [place] [address]. All rights reserved. This information is not intended as asubstitute for professional medical care. Always follow your healthcare professional's instructions. You have been given the following additional information: Abdominal Pain, Unknown Cause, (Female)(Electronically signed by Balaji Garcia 12/13/2020 19:47) Name Value Range Interpretation Code Description Data Rhonda rce(s) Supporting Document(s) ID Date Data Source [id number] 12/13/2020 04:26:00 PM EDT [facility] 1 Clinical Report - Nurses [facility] Emergency Department [address] [place] [address] Phone #: ext- [phone] 12/13/2020 16:23 Patient: [...] is described as located in the RLQ.Treatment TECHNOLOGY ARCHITECT:None.SEPSIS SCREEN: SIRS SCREEN NEGATIVE. SEPSIS SCREEN NEGATIVE. [...] tablet, daily at bedtime, last dose 1999. --16:33 12/13/20 Deanna Resendez R.N. Benzonatate [...] Venous Thrombosis.Fibromyalgia. 2 Clinical Report - Nurses [facility] Emergency Department [address] [place] [address] Phone #: ext- [phone] 12/13/2020 16:23 Patient: ELGIN KOO Sex: F : 1980 Age: 40yBack Pain.Myofascial [...] R.N.FAMILY HX: 3 Clinical Report - Nurses [facility] Emergency Department [address] [place] [address] Phone #: ext- [phone] 12/13/2020 16:23 Patient: ELGIN KOO [facility]#: [id number] Sex: F : 1980 Age: 40y Mother: Acute Coronary Syndrome. --17:11 12/13/20 Balaji Garcia Father: Diabetes Mellitus. --17:11 12/13/20 Balaji Garcia. Interventions Identification band on patient. To treatment [...] Patient verbalized understanding. Written instructions provided in French. The patient was discharged home and unaccompanied at time of discharge. She left ambulatory and via private vehicle. Patient driving. --18:24 12/13/20 Deanna Resendez R.N. 4 Clinical Report - Nurses [facility] Emergency Department [address] [place] [address] Phone #: ext- [phone] 12/13/2020 16:23 Patient: ELGIN KOO Sex: F : 1980 Age: 40y 18:23 12/13/20. BP: 120/74. MAP: 89. HR: 75. RR: 18. O2 saturation: 100%. Temp: 98.6 F. Pain level now: 11/02. --18:24 12/13/20 Deanna Resendez R.N. Departure time: 18:24 12/13/2020. --18:24 12/13/20 Deanna Resendez R.N.Locked/Released at 12/13/2020 18:24 by Deanna Resendez R.N. Name Value Range Interpretation Code Description Data Rhonda rce(s) Supporting Document(s) ID Date Data Source [id number] 12/13/2020 04:26:00 PM EDT [facility] 1 Clinical Report - Physicians/Mid Levels [facility] Emergency Department [address] [place] [address] Phone #: ext- [phone] 12/13/2020 16:23 Patient: [...] removed and had a partial hysterectomy in 2014. Despite surgery, she still has heavy periods.). Similar symptoms previously. Patient has had similar symptoms many times. Recent medical care: The patient was seen recently by a health care provider. ( Went to [facility] but waited too long so she [...] surgery. Additional Surgeries: CERVICAL CANCER. C- Section. Aysha filter. Partial hysterectomy. 2 Clinical Report - Physicians/Mid Levels [facility] Emergency Department [address] [place] [address] Phone #: ext- [phone] 12/13/2020 16:23 Patient: ELGIN KOO Sex: F : 1980 Age: 40y Medications: [...] (Reference) 3 Clinical Report - Physicians/Mid Levels [facility] Emergency Department [address] [place] [address] Phone #: ext- [phone] 12/13/2020 16:23 Patient: ELGIN KOO Sex: F [...] PRESUMPTIVE POSITIVE CONFIRMATION WILL BE PERFORMED AT [facility].Beta-HCG, Qual Urine: (JULI: 12/13/2020 16:40) ( MsgRcvd 12/13/2020 17:38) Final results Test Result Flag Units (Reference) HCG URINE QUAL NEGATIVE (NORMAL: NEGAT HCG URINE QL REENTER NEGATIVE (NORMAL: NEGAT { KIT LOT # [id number] ){ KIT EXP [id number] ){ PROCEDURAL CONTROL VALID)CBC w Diff: (JULI: 12/13/2020 17:20) ( MsgRcvd 12/13/2020 17:39) Final results Test Result Flag [...] INDICATED 4 Clinical Report - Physicians/Mid Levels [facility] Emergency Department [address] [place] [address] Phone #: ext- [phone] 12/13/2020 16:23 Patient: ELGIN KOO [facility]#: [id number] Sex: F : 1980 Age: 40y BMP: [...] NONE. 5 Clinical Report - Physicians/Mid Levels [facility] Emergency Department [address] [place] [address] Phone #: ext- [phone] 12/13/2020 16:23 Patient: ELGIN KOO Sex: F : 1980 Age: 40yPROGRESS AND PROCEDURESCourse of Care: 17:16 12/13/20. Right pelvic pain appears to be ongoing for over 3 months. Multipleallergies but she states she hasn't taken anything for pain. Ultrasound done 11/04 shows enlarged uteruswith left renal cyst. normal bilateral ovarian cysts 17:44 12/13/20. Records from [facility] indicate she never had hysterectomy, and in [...] rce(s) Supporting Document(s) ID Date Data Source [id number] 12/13/2020 05:56:00 PM EDT [facility] Name Value Range Interpretation Code Description Data Rhonda rce(s) Supporting Document(s) BASIC METABOLIC PANEL [facility] BASIC METABOLIC PANEL Sodium [Moles/volume] in Serum or Plasma 138 mEq/L 134 - 153 [facility] Potassium [Moles/volume] in Serum or Plasma 4.0 mEq/L 3.6 - 5.0 [facility] Chloride [Moles/volume] in Serum or Plasma 105 mEq/L 98 - 107 [facility] Carbon dioxide, total [Moles/volume] in Serum or Plasma 25 MEQ/L 22 - 30 [facility] Glucose [Mass/volume] in Serum or Plasma 104 MG/DL 70 - 99 H [facility] BUN 8 MG/DL 7 - 21 [facility] al Creatinine [Mass/volume] in Serum or Plasma 0.7 MG/DL 0.7 - 1.5 [facility] BUN/CREAT 11 8 - 27 [facility] Calcium [Mass/volume] in Serum or Plasma 9.0 MG/DL 8.4 - 10.2 [facility] Anion gap 3 in Serum or Plasma 8.0 mmol/L 8.0 - 16.0 [facility] AGE 40 yrs [facility] al AFR AMER GFR >60 mL/min [facility] Ho spital NON-AA GFR >60 mL/min [facility] ital Male GFR Inter prentation [...] >32 mL/min Normal ID Date Data Source [id number] 12/13/2020 05:38:00 PM EDT [facility] Name Value Range Interpretation Code Description Data Rhonda rce(s) Supporting Document(s) CBC W/AUTOMATED DIFF [facility] COMPLETE BLOOD COUNT Leukocytes [#/volume] in Blood by Automated count 5.2 10^3/uL 4.2 - 1 1.0 [facility] Erythrocytes [#/volume] in Blood by Automated count 4.30 10^6/uL 4. 20 - 5.40 [facility] Hemoglobin [Mass/volume] in Blood 13.6 g/dL 12.0 - 16.0 [facility] Hematocrit [Volume Fraction] of Blood by Automated count 37.9 % 3 7.0 - 47.0 [facility] Erythrocyte mean corpuscular volume [Entitic volume] by Auto mated count 88.1 fL 81.0 - 101 [facility] Erythrocyte mean corpuscular hemoglobin [Entitic mass] by Automated count 31.6 pg 27.0 - 34.0 [facility] Erythrocyte mean corpuscular hemoglobin concentration [Mass/volume] by Automated count 35.9 g/dL 31.0 - 36.0 [facility] Erythrocyte distribution width [Ratio] by Automated count 13.2 % 11.5 - 14.5 [facility] Platelets [#/volume] in Blood by Automated count 187 10^3/uL 150 - 45 0 [facility] Platelet mean volume [Entitic volume] in Blood by Automated count 9.4 fL 7.4 - 10.4 [facility] Neutrophils/100 leukocytes in Blood by Automated count 57.6 % 37. 0 - 80.0 [facility] Lymphocytes/100 leukocytes in Blood by Manual count 33.8 % 25.0 - 40.0 [facility] Monocytes/100 leukocytes in Blood by Automated count 6.2 % 3.0 - 8.0 [facility] Eosinophils/100 leukocytes in Blood by Automated count 1.6 % 0.0 - 7.0 [facility] Basophils/100 leukocytes in Blood by Automated count 0.6 % 0.0 - 2.5 [facility] %IG 0.2 % 0.0 - 0.[address] [facility] %NRBC 0.0 % 0.0 - 0.0 [facility] al Neutrophils [#/volume] in Blood by Automated count 2.97 10^3/uL 2.00 - 6.90 [facility] Lymphocytes [#/volume] in Blood by Automated count 1.74 10^3/uL 0.60 - 3.40 [facility] Monocytes [#/volume] in Blood by Automated count 0.32 10^3/uL 0.00 - 0.90 [facility] Eosinophils [#/volume] in Blood by Automated count 0.08 10^3/uL 0.00 - 0.70 [facility] Basophils [#/volume] in Blood by Automated count 0.03 10^3/uL 0.00 - 0.20 [facility] #IG 0.01 10^3/uL 0.00 - 0.10 [facility] ospital #NRBC 0.00 10^3/uL 0.00 - 0.00 [facility] ospital MANUAL DIFF NOT INDICATED [facility] RBC MORPH NOT INDICATED [facility] spital ID Date Data Source [id number] 12/13/2020 06:04:00 PM EDT [facility] Name Value Range Interpretation Code Description Data Rhonda rce(s) Supporting Document(s) DRUG SCREEN URINE [facility] URINE DRUG SCREEN Amphetamine [Presence] in Urine by Screen method NEGATIVE NORMAL: N EGATIVE [facility] BARBITURATES NEGATIVE NORMAL: NEGATIVE [facility] BENZO NEGATIVE NORMAL: NEGATIVE [facility] COCAINE NEGATIVE NORMAL: NEGATIVE [facility] Tetrahydrocannabinol [Presence] in Urine NEGATIVE NORMAL: NEGATIVE [facility] OPIATES NEGATIVE NORMAL: NEGATIVE [facility] Phencyclidine [Presence] in Urine by Screen method NEGATIVE NOR MAL: NEGATIVE [facility] \\BLDo\\URINE DRUG SCR EEN INTERPRETATION\\BLDx\\ THE CUTOFFF LEVELS FOR DETECTION ARE FOLLOWS: AMPHETAMINES 1000 ng/ml BARBITUARATES 200 ng/ml BENZODIAZEPINES 100 ng/ml THC 50 ng/ml PHENCYCLIDINE 25 ng/ml OPIATES 300 ng/ml COCAINE 300 ng/ml ALL POSITIVES ARE CONSIDERED PRESUMPTIVE POSITIVE CONFIRMATION WILL BE PERFORMED AT PHYSICIAN REQUEST. ID Date Data Source [id number] 12/13/2020 05:38:00 PM EDT [facility] Name Value Range Interpretation Code Description Data Rhonda rce(s) Supporting Document(s) HCG URINE QUAL NEGATIVE NORMAL: NEGATIVE [facility] HCG URINE QL REENTER NEGATIVE NORMAL: NEGATIVE [facility] { KIT LOT # [id number] ){ KIT EXP DATE 05-25-22 ){ PROCEDURAL CONTROL VALID ) ID Date Data Source [id number] 12/13/2020 04:56:00 PM EDT [facility] Name Value Range Interpretation Code Description Data Rhonda rce(s) Supporting Document(s) URINALYSIS [facility] URINALYSIS SOURCE Clean Catch [facility] ital COLOR yellow NORMAL: Yellow [facility] CLARITY clear NORMAL: Clear [facility] Specific gravity of Urine by Test strip 1.015 1.001 - 1.030 [facility] pH 6.5 5 - 9 [facility] Glucose [Mass/volume] in Urine by Test strip NORM NORMAL: Negat [facility] Bilirubin.total [Presence] in Urine by Test strip NEG NORMAL: Negative [facility] Ketones [Presence] in Urine by Test strip NEG NORMAL: Negative [facility] Protein [Mass/volume] in Urine by Test strip [facility] [Presence] in Urine by Test strip NEG NORMAL: Negative [facility] BLOOD 50 NORMAL: Negative [facility] Leukocyte esterase [Presence] in Urine by Test strip 25 LINDA L: Negative [facility] Urobilinogen [Mass/volume] in Urine by Test strip NOR less emily n 1.0 mg/dL [facility] MICROSCOPIC See Below [facility] ital WBC 1 - 3 NORMAL: NONE SEEN [facility] Erythrocytes [#/volume] in Urine by Test strip 3 - 5 NORMAL: NON E SEEN [facility] EPITHELIAL MODERATE NORMAL: NONE SEEN A [facility] Bacteria [Presence] in Urine sediment by Light microscopy Tr kosta NORMAL: NONE SEEN [facility] ID Date Data Source Pathology Request For Service 11/08/2020 12:00:00 AM EDT eCW 1 ([facility]) Name Value Range Interpretation Code Description Data Rhonda rce(s) Supporting Document(s) GENITOURINARY eCW1 ([facility]) ID Date Data Source [facility] Pelvis non-OB COMPLETE US 11/04/2020 12:00:00 AM EDT eC W1 ([facility]) Name Value Range Interpretation Code Description Data Rhonda rce(s) Supporting Document(s) [facility] Pelvis non-OB COMPLETE US eCW1 ([facility]) ID Date Data Source CHLAMYDIA, GC & TRICH AMP 10/09/2020 12:00:00 AM EDT eCW1 ([facility]) Name Value Range Interpretation Code Description Data Rhonda rce(s) Supporting Document(s) NOT DETECTED NEGATIVE Trichomonas vaginalis ( AMP) eCW1 ([facility]) ID Date Data Source PAP REQUEST FOR SERVICE 10/09/2020 12:00:00 AM EDT eCW1 ([facility]) Name Value Range Interpretation Code Description Data Rhonda rce(s) Supporting Document(s) PAP REQUEST FOR SERVICE eCW1 ( [facility]) ID Date Data Source FREE T4 & TSH PANEL 10/09/2020 12:00:00 AM EDT eCW1 ([facility]) Name Value Range Interpretation Code Description Data Rhonda rce(s) Supporting Document(s) 1.680 0.358-3.740 THYROID STIMULATING HORM ONE eCW1 ([facility]) 1.05 0.76-1.46 FREE T4 eCW1 ([facility]) ID Date Data Source CBC - Complete Blood Count 10/09/2020 12:00:00 AM EDT eCW1 ( [facility]) Name Value Range Interpretation Code Description Data Rhonda rce(s) Supporting Document(s) 5.7 4.0-10.0 WHITE BLOOD COUNT eCW1 ([facility]) 14.8 12.0-15.5 HEMOGLOBIN eCW1 ([facility]) 4.89 4.00-5.40 RED BLOOD COUNT eCW1 ([facility]) 43.4 36.0-47.0 HEMATOCRIT eCW1 ([facility]) 30.3 27.0-33.0 MEAN CORPUSCULAR HEMOGLOB IN eCW1 ([facility]) 88.8 80.0-96.0 MEAN CORPUSCULAR VOLUME e CW1 ([facility]) 34.1 32.0-36.5 MEAN CORPUSCULAR HGB CONC eCW1 ([facility]) 12.9 11.5-14.5 RED CELL DISTRIBUTION WID TH eCW1 ([facility]) 193 150-450 PLATELET COUNT, AUTOMATED eCW1 ([facility]) ID Date Data Source URINE CULTURE 09/24/2020 12:00:00 AM EST eCW1 ([facility]) Name Value Range Interpretation Code Description Data Rhonda rce(s) Supporting Document(s) URINE CULTURE eCW1 ([facility]) ID Date Data Source UA URINALYSIS 09/24/2020 12:00:00 AM EST eCW1 ([facility]) Name Value Range Interpretation Code Description Data Rhonda rce(s) Supporting Document(s) UA URINALYSIS eCW1 ([facility]) ID Date Data Source [id number] 09/23/2020 11:34:00 AM EST [facility] Name Value Range Interpretation Code Description Data Rhonda rce(s) Supporting Document(s) SARS-CoV-2 (COVID 19) NEGATIVE - SARS-CoV-2 (COVID19) [facility] This lab was ordered by [facility] a nd reported by [facility]. ID Date Data Source RESPIRATORY PANEL 09/23/2020 12:00:00 AM EST eCW1 ([facility]) Name Value Range Interpretation Code Description Data Rhonda rce(s) Supporting Document(s) This respiratory PCR panel detects Influenza A H1, H3 and RESPIRATORY PANEL W1 ([facility]) ID Date Data Source Basic Metabolic Profile (BMP) 07/05/2020 12:00:00 AM EST eCW 1 ([facility]) Name Value Range Interpretation Code Description Data Rhonda rce(s) Supporting Document(s) 0.91 0.55-1.30 CREATININE FOR GFR eCW1 ([facility]) 6 7-18 BLOOD UREA NITROGEN eCW1 ([facility]) 140 70-100 GLUCOSE, FASTING eCW1 ([facility]) > 60.0 >58 GLOMERULAR FILTRATION RATE eCW 1 ([facility]) 107 98-107 CHLORIDE LEVEL eCW1 ([facility]) 138 136-145 SODIUM LEVEL eCW1 ([facility]) 3.9 3.5-5.1 POTASSIUM SERUM eCW1 ([facility]) 28 21-32 CARBON DIOXIDE LEVEL eCW1 ([facility]) 9.2 8.5-10.1 CALCIUM LEVEL eCW1 ([facility]) ID Date Data Source [id number] 07/04/2020 10:00:00 AM EST [facility] Name Value Range Interpretation Code Description Data Rhonda rce(s) Supporting Document(s) SARS coronavirus 2 RNA [facility] This lab was ordered by [facility] and reported by [facility]. Procedure Social History Code Duration Value Status Description Data Source(s ) Smoking 05/09/2021 12:00:00 AM EDT Current Smoker completed Curre nt Smoker eCW1 ([facility]) Smoking 05/09/2021 12:00:00 AM EDT Current Smoker completed Curre nt Smoker eCW1 ([facility]) Smoking 05/09/2021 12:00:00 AM EDT Current Smoker completed Curre nt Smoker eCW1 ([facility]) Smoking 04/07/2021 12:00:00 AM EDT Current Smoker completed Curre nt Smoker eCW1 ([facility]) Smoking 04/07/2021 12:00:00 AM EDT Current Smoker completed Curre nt Smoker eCW1 ([facility]) Smoking 04/07/2021 12:00:00 AM EDT Current Smoker completed Curre nt Smoker eCW1 ([facility]) Smoking 04/07/2021 12:00:00 AM EDT Current Smoker completed Curre nt Smoker eCW1 ([facility]) Smoking 01/28/2021 12:00:00 AM EDT Current Smoker completed Curre nt Smoker eCW1 ([facility]) Smoking 01/28/2021 12:00:00 AM EDT Current Smoker completed Curre nt Smoker eCW1 ([facility]) Smoking 01/28/2021 12:00:00 AM EDT Current Smoker completed Curre nt Smoker eCW1 ([facility]) Smoking 01/28/2021 12:00:00 AM EDT Current Smoker completed Curre nt Smoker eCW1 ([facility]) Smoking 01/28/2021 12:00:00 AM EDT Current Smoker completed Curre nt Smoker eCW1 ([facility]) Smoking 01/28/2021 12:00:00 AM EDT Current Smoker completed Curre nt Smoker eCW1 ([facility]) Smoking 01/02/2021 12:00:00 AM EDT Current Smoker completed Curre nt Smoker eCW1 ([facility]) Smoking 01/02/2021 12:00:00 AM EDT Current Smoker completed Curre nt Smoker eCW1 ([facility]) Smoking 12/16/2020 12:00:00 AM EDT Current Smoker completed Curre nt Smoker eCW1 ([facility]) Smoking 12/16/2020 12:00:00 AM EDT Current Smoker completed Curre nt Smoker eCW1 ([facility]) Smoking 12/16/2020 12:00:00 AM EDT Current Smoker completed Curre nt Smoker eCW1 ([facility]) Smoking 12/16/2020 12:00:00 AM EDT Current Smoker completed Curre nt Smoker eCW1 ([facility]) Smoking 12/16/2020 12:00:00 AM EDT Current Smoker completed Curre nt Smoker eCW1 ([facility]) Smoking 12/16/2020 12:00:00 AM EDT Current Smoker completed Curre nt Smoker eCW1 ([facility]) Smoking 11/13/2020 12:00:00 AM EDT Current Smoker completed Curre nt Smoker eCW1 ([facility]) Smoking 11/13/2020 12:00:00 AM EDT Current Smoker completed Curre nt Smoker eCW1 ([facility]) Smoking 11/13/2020 12:00:00 AM EDT Current Smoker completed Curre nt Smoker eCW1 ([facility]) Smoking 11/13/2020 12:00:00 AM EDT Current Smoker completed Curre nt Smoker eCW1 ([facility]) Smoking 11/13/2020 12:00:00 AM EDT Current Smoker completed Curre nt Smoker eCW1 ([facility]) Smoking 10/07/2020 12:00:00 AM EDT Current Smoker completed Curre nt Smoker eCW1 ([facility]) Smoking 09/24/2020 12:00:00 AM EST Current Smoker completed Curre nt Smoker eCW1 ([facility]) Smoking 09/24/2020 12:00:00 AM EST Current Smoker completed Curre nt Smoker eCW1 ([facility]) Smoking 09/24/2020 12:00:00 AM EST Current Smoker completed Curre nt Smoker eCW1 ([facility]) Smoking 09/24/2020 12:00:00 AM EST Current Smoker completed Curre nt Smoker eCW1 ([facility]) Smoking 09/03/2020 12:00:00 AM EST Current Smoker completed Curre nt Smoker eCW1 ([facility]) Smoking 09/03/2020 12:00:00 AM EST Current Smoker completed Curre nt Smoker eCW1 ([facility]) Smoking 08/23/2020 12:00:00 AM EST Current Smoker completed Curre nt Smoker eCW1 ([facility]) Smoking 08/23/2020 12:00:00 AM EST Current Smoker completed Curre nt Smoker eCW1 ([facility]) Smoking 08/23/2020 12:00:00 AM EST Current Smoker completed Curre nt Smoker eCW1 ([facility]) Smoking 07/11/2020 12:00:00 AM EST Current Smoker completed Curre nt Smoker eCW1 ([facility]) Smoking 07/11/2020 12:00:00 AM EST Current Smoker completed Curre nt Smoker eCW1 ([facility]) Smoking 07/11/2020 12:00:00 AM EST Current Smoker completed Curre nt Smoker eCW1 ([facility]) Smoking 07/05/2020 12:00:00 AM EST Current Smoker completed Curre nt Smoker eCW1 ([facility]) Smoking 07/05/2020 12:00:00 AM EST Current Smoker completed Curre nt Smoker eCW1 ([facility]) Smoking 07/05/2020 12:00:00 AM EST Current Smoker completed Curre nt Smoker eCW1 ([facility]) Smoking 06/28/2020 12:00:00 AM EST Current Smoker completed Curre nt Smoker eCW1 ([facility]) Smoking 05/30/2020 12:00:00 AM EST Current Smoker completed Curre nt Smoker eCW1 ([facility]) Smoking 05/10/2020 12:00:00 AM EDT Current Smoker completed Curre nt Smoker eCW1 ([facility]) Smoking 05/10/2020 12:00:00 AM EDT Current Smoker completed Curre nt Smoker eCW1 ([facility]) Vital Signs ID Date Data Source UNK Name Value Range Interpretation Code Description Data Source(s) Body weight 226 [lb_av] 226 [lb_av] W1 ([facility]) Body height 65.5 [in_i] 65.5 [in_i] W1 ([facility]) Body mass index (BMI) [Ratio] 37.03 kg/m2 37.03 kg/m2 W1 ([facility]) Systolic blood pressure 122 mm[Hg] 122 mm[Hg] e CW1 ([facility]) Diastolic blood pressure 72 mm[Hg] 72 mm[Hg] eCW1 ([facility]) Body weight 238 [lb_av] 238 [lb_av] eCW1 ([facility]) Body height 65.5 [in_i] 65.5 [in_i] W1 ([facility]) Body mass index (BMI) [Ratio] 39 kg/m2 39 kg/ m2 W1 ([facility]) Systolic blood pressure 122 mm[Hg] 122 mm[Hg] e CW1 ([facility]) Diastolic blood pressure 78 mm[Hg] 78 mm[Hg] eCW1 ([facility]) Body mass index (BMI) [Ratio] 38.31 kg/m2 38.31 kg/m2 eCW1 ([facility]) Heart rate 106 /min 106 /min eCW1 ([facility]) Respiratory rate 18 /min 18 /min eCW1 ([facility]) Body temperature 97.1 [degF] 97.1 [degF] eCW1 ( [facility]) Systolic blood pressure 110 mm[Hg] 110 mm[Hg] e CW1 ([facility]) Diastolic blood pressure 68 mm[Hg] 68 mm[Hg] eCW1 ([facility]) Body weight 233.8 [lb_av] 233.8 [lb_av] eCW1 ([facility]) Body height 65.5 [in_i] 65.5 [in_i] eCW1 ([facility]) Body weight 237.8 [lb_av] 237.8 [lb_av] eCW1 ([facility]) Body height 65.5 [in_i] 65.5 [in_i] eCW1 ([facility]) Body mass index (BMI) [Ratio] 38.97 kg/m2 38.97 kg/m2 W1 ([facility]) Systolic blood pressure 118 mm[Hg] 118 mm[Hg] e CW1 ([facility]) Diastolic blood pressure 78 mm[Hg] 78 mm[Hg] eCW1 ([facility]) Body weight 238.4 [lb_av] 238.4 [lb_av] eCW1 ([facility]) Body height 65.5 [in_i] 65.5 [in_i] eCW1 ([facility]) Body mass index (BMI) [Ratio] 39.06 kg/m2 39.06 kg/m2 W1 ([facility]) Systolic blood pressure 118 mm[Hg] 118 mm[Hg] e CW1 ([facility]) Diastolic blood pressure 68 mm[Hg] 68 mm[Hg] eCW1 ([facility]) Heart rate 89 /min 89 /min eCW1 ([facility]) Body weight 239.2 [lb_av] 239.2 [lb_av] eCW1 ([facility]) Body height 65.5 [in_i] 65.5 [in_i] eCW1 ([facility]) Body mass index (BMI) [Ratio] 39.20 kg/m2 39.20 kg/m2 eCW1 ([facility]) Respiratory rate 19 /min 19 /min eCW1 ([facility]) Body temperature 97.0 [degF] 97.0 [degF] eCW1 ( [facility]) Systolic blood pressure 130 mm[Hg] 130 mm[Hg] e CW1 ([facility]) Diastolic blood pressure 50 mm[Hg] 50 mm[Hg] eCW1 ([facility]) Body weight 239.4 [lb_av] 239.4 [lb_av] eCW1 ([facility]) Body height 65.5 [in_i] 65.5 [in_i] eCW1 ([facility]) Body mass index (BMI) [Ratio] 39.23 kg/m2 39.23 kg/m2 eCW1 ([facility]) Systolic blood pressure 112 mm[Hg] 112 mm[Hg] e CW1 ([facility]) Diastolic blood pressure 70 mm[Hg] 70 mm[Hg] eCW1 ([facility]) Body weight 234.2 [lb_av] 234.2 [lb_av] eCW1 ([facility]) Body height 65.5 [in_i] 65.5 [in_i] eCW1 ([facility]) Body mass index (BMI) [Ratio] 38.38 kg/m2 38.38 kg/m2 eCW1 ([facility]) Systolic blood pressure 110 mm[Hg] 110 mm[Hg] e CW1 ([facility]) Diastolic blood pressure 66 mm[Hg] 66 mm[Hg] eCW1 ([facility]) Body weight 241 [lb_av] 241 [lb_av] eCW1 ([facility]) Body height 65.5 [in_i] 65.5 [in_i] eCW1 ([facility]) Body mass index (BMI) [Ratio] 39.49 kg/m2 39.49 kg/m2 eCW1 ([facility]) Heart rate 90 /min 90 /min eCW1 ([facility]) Respiratory rate 20 /min 20 /min eCW1 ([facility]) Body temperature 96.9 [degF] 96.9 [degF] eCW1 ( [facility]) Systolic blood pressure 118 mm[Hg] 118 mm[Hg] e CW1 ([facility]) Diastolic blood pressure 72 mm[Hg] 72 mm[Hg] eCW1 ([facility]) Body weight 239.8 [lb_av] 239.8 [lb_av] eCW1 ([facility]) Body height 65.5 [in_i] 65.5 [in_i] eCW1 ([facility]) Body mass index (BMI) [Ratio] 39.29 kg/m2 39.29 kg/m2 eCW1 ([facility]) Heart rate 90 /min 90 /min eCW1 ([facility]) Respiratory rate 18 /min 18 /min eCW1 ([facility]) Body temperature 97.2 [degF] 97.2 [degF] eCW1 ( [facility]) Systolic blood pressure 110 mm[Hg] 110 mm[Hg] e CW1 ([facility]) Diastolic blood pressure 66 mm[Hg] 66 mm[Hg] eCW1 ([facility]) Body weight 238 [lb_av] 238 [lb_av] eCW1 ([facility]) Body weight 107.95 kg 107.95 kg eCW1 ([facility]) Body height 65.5 [in_i] 65.5 [in_i] eCW1 ([facility]) Body mass index (BMI) [Ratio] 39 kg/m2 39 kg/ m2 eCW1 ([facility]) Heart rate 85 /min 85 /min eCW1 ([facility]) Respiratory rate 18 /min 18 /min eCW1 ([facility]) Body temperature 97.0 [degF] 97.0 [degF] eCW1 ( [facility]) Systolic blood pressure 102 mm[Hg] 102 mm[Hg] e CW1 ([facility]) Diastolic blood pressure 66 mm[Hg] 66 mm[Hg] eCW1 ([facility]) Body weight 238 [lb_av] 238 [lb_av] eCW1 ([facility]) Body height 65.5 [in_i] 65.5 [in_i] eCW1 ([facility]) Body mass index (BMI) [Ratio] 39.00 kg/m2 39.00 kg/m2 eCW1 ([facility]) Heart rate 91 /min 91 /min eCW1 ([facility]) Respiratory rate 18 /min 18 /min eCW1 ([facility]) Systolic blood pressure 128 mm[Hg] 128 mm[Hg] e CW1 ([facility]) Diastolic blood pressure 7 mm[Hg] 7 mm[Hg] eCW1 ([facility]) Body temperature 97.4 [degF] 97.4 [degF] eCW1 ( [facility]) Body weight 241 [lb_av] 241 [lb_av] eCW1 ([facility]) Body weight 109.32 kg 109.32 kg eCW1 ([facility]) Body height 65.5 [in_i] 65.5 [in_i] eCW1 ([facility]) Body mass index (BMI) [Ratio] 39.49 kg/m2 39.49 kg/m2 eCW1 ([facility]) Heart rate 66 /min 66 /min eCW1 ([facility]) Respiratory rate 18 /min 18 /min eCW1 ([facility]) Body temperature 97.2 [degF] 97.2 [degF] eCW1 ( [facility]) Systolic blood pressure 130 mm[Hg] 130 mm[Hg] e CW1 ([facility]) Diastolic blood pressure 68 mm[Hg] 68 mm[Hg] eCW1 ([facility]) Body temperature 96.4 [degF] 96.4 [degF] eCW1 ( [facility]) Systolic blood pressure 128 mm[Hg] 128 mm[Hg] e CW1 ([facility]) Diastolic blood pressure 70 mm[Hg] 70 mm[Hg] eCW1 ([facility]) Body weight 237 [lb_av] 237 [lb_av] eCW1 ([facility]) Body height 65.5 [in_i] 65.5 [in_i] eCW1 ([facility]) Body mass index (BMI) [Ratio] 38.83 kg/m2 38.83 kg/m2 eCW1 ([facility]) Heart rate 100 /min 100 /min eCW1 ([facility]) Respiratory rate 18 /min 18 /min eCW1 ([facility]) Body weight 240 [lb_av] 240 [lb_av] eCW1 ([facility]) Systolic blood pressure 124 mm[Hg] 124 mm[Hg] e CW1 ([facility]) Diastolic blood pressure 68 mm[Hg] 68 mm[Hg] eCW1 ([facility]) Body weight 108.86 kg 108.86 kg eCW1 ([facility]) Body height 65.5 [in_i] 65.5 [in_i] eCW1 ([facility]) Body mass index (BMI) [Ratio] 39.33 kg/m2 39.33 kg/m2 eCW1 ([facility]) Heart rate 80 /min 80 /min eCW1 ([facility]) Respiratory rate 18 /min 18 /min eCW1 ([facility]) Body temperature 97.9 [degF] 97.9 [degF] eCW1 ( [facility]) Body weight 237 [lb_av] 237 [lb_av] eCW1 ([facility]) Body height 65.5 [in_i] 65.5 [in_i] eCW1 ([facility]) Body mass index (BMI) [Ratio] 38.83 kg/m2 38.83 kg/m2 eCW1 ([facility]) Heart rate 92 /min 92 /min eCW1 ([facility]) Respiratory rate 18 /min 18 /min eCW1 ([facility]) Body temperature 96.7 [degF] 96.7 [degF] eCW1 ( [facility]) Systolic blood pressure 120 mm[Hg] 120 mm[Hg] e CW1 ([facility]) Diastolic blood pressure 78 mm[Hg] 78 mm[Hg] eCW1 ([facility]) Body weight 232.4 [lb_av] 232.4 [lb_av] eCW1 ([facility]) Body height 65.5 [in_i] 65.5 [in_i] eCW1 ([facility]) Body mass index (BMI) [Ratio] 38.08 kg/m2 38.08 kg/m2 eCW1 ([facility]) Heart rate 80 /min 80 /min eCW1 ([facility]) Respiratory rate 17 /min 17 /min eCW1 ([facility]) Body temperature 97.1 [degF] 97.1 [degF] eCW1 ( [facility]) Systolic blood pressure 120 mm[Hg] 120 mm[Hg] e CW1 ([facility]) Diastolic blood pressure 76 mm[Hg] 76 mm[Hg] eCW1 ([facility]) Patient Treatment Plan of Care Planned Activity Planned Date Details Description Data Source (s) Fluconazole 150 MG Oral Tablet [Diflucan] 06/09/2021 12:00:00 AM ES T eCW1 ([facility]) Fluconazole 150 MG Oral Tablet [Diflucan] 06/09/2021 12:00:00 AM ES T eCW1 ([facility]) Fluconazole 150 MG Oral Tablet [Diflucan] 04/07/2021 12:00:00 AM ED T eCW1 ([facility]) Fluconazole 150 MG Oral Tablet [Diflucan] 04/07/2021 12:00:00 AM ED T eCW1 ([facility]) Fluconazole 150 MG Oral Tablet [Diflucan] 04/07/2021 12:00:00 AM ED T eCW1 ([facility]) Fluconazole 150 MG Oral Tablet [Diflucan] 04/07/2021 12:00:00 AM ED T eCW1 ([facility]) Fluconazole 150 MG Oral Tablet [Diflucan] 04/07/2021 12:00:00 AM ED T eCW1 ([facility]) Fluconazole 150 MG Oral Tablet [Diflucan] 04/07/2021 12:00:00 AM ED T eCW1 ([facility]) Fluconazole 150 MG Oral Tablet [Diflucan] 04/07/2021 12:00:00 AM ED T eCW1 ([facility]) Codeine Phosphate 2 MG/ML / Guaifenesin 20 MG/ML Oral Solution 02/19/2021 12:00:00 AM EDT eCW1 ([facility]) Codeine Phosphate 2 MG/ML / Guaifenesin 20 MG/ML Oral Solution 02/19/2021 12:00:00 AM EDT eCW1 ([facility]) Codeine Phosphate 2 MG/ML / Guaifenesin 20 MG/ML Oral Solution 02/19/2021 12:00:00 AM EDT eCW1 ([facility]) Codeine Phosphate 2 MG/ML / Guaifenesin 20 MG/ML Oral Solution 02/19/2021 12:00:00 AM EDT eCW1 ([facility]) Acetaminophen 325 MG / Hydrocodone Bitartrate 5 MG Ora l Tablet 12/31/2020 12:00:00 AM EDT eCW1 ([facility]) HYDROcodone Bitartrate ER 10 MG 12/31/2020 12:00:00 AM EDT eCW1 ([facility]) Acetaminophen 325 MG / Hydrocodone Bitartrate 5 MG Ora l Tablet 12/31/2020 12:00:00 AM EDT eCW1 ([facility]) HYDROcodone Bitartrate ER 10 MG 12/31/2020 12:00:00 AM EDT eCW1 ([facility]) heparin sodium, porcine 5000 UNT/ML Injectable Solutio n 12/24/2020 12:00:00 AM EDT eCW1 ([facility]) heparin sodium, porcine 5000 UNT/ML Injectable Solutio n 12/24/2020 12:00:00 AM EDT eCW1 ([facility]) heparin sodium, porcine 5000 UNT/ML Injectable Solutio n 12/24/2020 12:00:00 AM EDT eCW1 ([facility]) heparin sodium, porcine 5000 UNT/ML Injectable Solutio n 12/24/2020 12:00:00 AM EDT eCW1 ([facility]) heparin sodium, porcine 5000 UNT/ML Injectable Solutio n 12/24/2020 12:00:00 AM EDT eCW1 ([facility]) Heparin Sodium (Porcine) 5000 unit/mL 12/18/2020 12:00:00 AM EDT eCW1 ([facility]) Heparin Sodium (Porcine) 5000 unit/mL 12/18/2020 12:00:00 AM EDT eCW1 ([facility]) Heparin Sodium (Porcine) 5000 unit/mL 12/18/2020 12:00:00 AM EDT eCW1 ([facility]) Heparin Sodium (Porcine) 5000 unit/mL 12/18/2020 12:00:00 AM EDT eCW1 ([facility]) Heparin Sodium (Porcine) 5000 unit/mL 12/18/2020 12:00:00 AM EDT eCW1 ([facility]) Heparin Sodium (Porcine) 5000 unit/mL 12/18/2020 12:00:00 AM EDT eCW1 ([facility]) Clobetasol Prop Emollient Base 0.05 % 10/09/2020 12:00:00 AM EDT eCW1 ([facility]) Levaquin 750 MG 09/24/2020 12:00:00 AM EST eCW1 ([facility]) Levaquin 750 MG 09/24/2020 12:00:00 AM EST eCW1 ([facility]) Levaquin 750 MG 09/24/2020 12:00:00 AM EST eCW1 ([facility]) Levaquin 750 MG 09/24/2020 12:00:00 AM EST eCW1 ([facility]) May Have - 09/10/2020 12:00:00 AM EST e CW1 ([facility]) benzonatate 100 MG Oral Capsule [Qiana Ivey] 05/30/2020 12: 00:00 AM EST eCW1 ([facility]) meloxicam 7.5 MG Oral Tablet 05/30/2020 12:00:00 AM EST eCW1 ([facility]) atorvastatin 20 MG Oral Tablet 05/14/2020 12:00:00 AM EDT eCW1 ([facility]) atorvastatin 20 MG Oral Tablet 05/14/2020 12:00:00 AM EDT eCW1 ([facility]) atorvastatin 20 MG Oral Tablet 05/14/2020 12:00:00 AM EDT eCW1 ([facility])
[2021-06-18] MEDS ORDERED: LORA-674 PO (22:39)
[2021-06-18] MEDS ORDERED: ALPR1TAB3 PO (22:39)
[2021-06-19 00:16] LABS: HEMATOCRIT 38.8 % (36.0-47.0); HEMOGLOBIN 13.7 g/dl (12.0-15.5); MEAN CORPUSCULAR HEMOGLOBIN 31.8 pg (27.0-33.0); MEAN CORPUSCULAR HGB CONC 35.3 g/dl (32.0-36.5); PLATELET COUNT, AUTOMATED 193 10^3/uL (150-450); RED BLOOD COUNT 4.31 10^6/uL (4.00-5.40); WHITE BLOOD COUNT 6.5 10^3/uL (4.0-10.0)
[2021-06-19 00:34] LABS: AMPHETAMINES LEVEL URINE NEGATIVE (NEGATIVE); BARBITURATES URINE NEGATIVE (NEGATIVE); BENZODIAZEPINES URINE POSITIVE (NEGATIVE); CANNABINOIDS URINE NEGATIVE (NEGATIVE); COCAINE METABOLITE URINE NEGATIVE (NEGATIVE); METHADONE URINE NEGATIVE (NEGATIVE); OPIATES URINE NEGATIVE (NEGATIVE); PHENCYCLIDINE URINE NEGATIVE (NEGATIVE)
[2021-06-19 00:51] LABS: HCG, SERUM QUALITATIVE NEGATIVE (NEGATIVE)
[2021-06-19 00:56] LABS: ACETAMINOPHEN LEVEL < 2.0 UG/ML (10.0-30.0); ALBUMIN 3.5 GM/DL (3.2-5.2); ALT/SGPT 18 U/L (12-78); BILIRUBIN,DIRECT 0.1 MG/DL (0.0-0.2); BILIRUBIN,TOTAL 0.5 MG/DL (0.2-1.0); BLOOD UREA NITROGEN 9 MG/DL (7-18); CALCIUM LEVEL 8.3 MG/DL (8.5-10.1); CARBON DIOXIDE LEVEL 26 MEQ/L (21-32); CHLORIDE LEVEL 109 MEQ/L (98-107); CREATININE FOR GFR 0.89 MG/DL (0.55-1.30); ETHYL ALCOHOL (ETHANOL) < 0.003 % (0.000-0.010); GLOMERULAR FILTRATION RATE > 60.0 (>58); GLUCOSE, FASTING 104 MG/DL (70-100); POTASSIUM SERUM 3.9 MEQ/L (3.5-5.1); SALICYLATE LEVEL 3.7 MG/DL (5.0-30.0); SODIUM LEVEL 140 MEQ/L (136-145); TOTAL PROTEIN 6.7 GM/DL (6.4-8.2)
[2021-06-19 01:14] LABS: RSV AMPLIFICATION NEGATIVE (NEGATIVE)
--- OUTSIDE RECORDS SUMMARY | 2021-06-19 05:42 | CCD ---
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 Public Health law. If you continue you may have access to information: Regarding HIV / AIDS; Provided by facilities licensed or operated by the [facility] Office of Mental Health; or Provided by the [facility] Office for People With Developmental Disabilities. If such information is present, then the following [facility] mandated warning applies: This information has [...] law may result in a fine or correction sentence or both. A general authorization for the release of medical or other information is NOT sufficient authorization for further disc losure. Allergies and Adverse Reactions Type Description Substance Reaction Status Data Source(s ) Drug allergy pyridium pyridium [facility] Drug allergy penicillin penicillin [facility] Drug allergy bactrim bactrim [facility] Drug allergy Drug allergy [id number] [facility] Propensity to adverse reactions SUDAFED PE COLD & COUGH SUDAFED PE COLD & COUGH [facility] Drug allergy AMOXICILLIN AMOXICILLIN [facility] Family History Family Member Name Family Member Gender Family Member Status Date o f Status Description Data Source(s) Unknown Male Problem [facility] ([facility]) Encounters Encounter Providers Location Date Indications Data Source(s ) Unknown [address] [facility] [id number] 06/09/2021 12:00:00 AM EST [facility]CW[facility] Unknown [address] [facility] [id number] 06/09/2021 12:00:00 AM EST [facility]CW[facility] Unknown [address] [facility] [place] [address] 05/12/2021 12:00:00 AM EDT eCW1 ([facility]) Unknown [address] [facility] [place] [address] 04/29/2021 12:00:00 AM EDT eCW1 ([facility]) Unknown [address] [facility] [place] [address] 04/16/2021 12:00:00 AM EDT eCW1 ([facility]) Outpatient [address] [facility] [place] [address] 04/07/2021 12:00:00 AM EDT eCW1 ([facility]) Unknown [address] [facility] [place] [address] 04/07/2021 12:00:00 AM EDT eCW1 ([facility] 03/12/2021 12:00:00 AM EDT [employer] ([facility]) Unknown [address] [facility] [place] [address] 03/12/2021 12:00:00 AM EDT [facility]CW[facility] Unknown [address] [facility] [place] [address] 02/28/2021 12:00:00 AM EDT [facility]CW1 [facility] Emergency Attender: Balaji Garcia MDConsultant: Fatimah MESA 02/18/2021 02:36:00 PM EDT - 02/18/2021 04:45:00 PM EDT [facility] Patient discharged. Unknown [address] [facility] [address] 02/18/2021 12:00:00 AM EDT eCW1 ([facility]) Emergency Attender: JACQUI EDUARDOConsultant: Fatimah MESA 02/17/2021 08:20:00 PM EDT - 02/17/2021 10:10:00 PM EDT [facility] Patient discharged. Emergency Attender: LINDA BLACK MDConsultant: Fatimah MESA 02/10/2021 11:55:00 PM EDT - 02/11/2021 02:57:00 AM EDT [facility] Patient discharged. Unknown [address] [facility] [address] 02/03/2021 12:00:00 AM EDT eCW1 [facility] Unknown [address] [facility] [place] [address] 01/30/2021 12:00:00 AM EDT [facility]CW1 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 Outpatient [address] [facility], [facility] [address] 01/02/2021 12:00:00 AM EDT eCW1 [facility] Telehealth Physchotherapy 30 Minutes with Patient [facility] 01/02/2021 12:00:00 AM EDT [employer] ([facility]) Unknown [address] [facility] [address] 12/31/2020 12:00:00 AM EDT eCW1 [facility] Unknown [address] [facility] [address] 12/31/2020 12:00:00 AM EDT eCW1 [facility] Unknown [address] [facility] [address] 12/24/2020 12:00:00 AM EDT eCW1 ([facility]) Unknown [address] [facility] [address] 12/24/2020 12:00:00 AM EDT eCW1 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 Telehealth Physchotherapy 30 Minutes with Patient [facility] 11/18/2020 12:00:00 AM EDT [employer] ([facility]) Unknown [address] [facility] [place] [address] 11/18/2020 12:00:00 AM EDT eCW1 ([facility]) Unknown [address] [facility] [address] 11/14/2020 12:00:00 AM EDT eCW1 [facility] Outpatient [address] [facility] [address] 11/13/2020 12:00:00 AM EDT eCW1 [facility] Outpatient [address] [facility] [address] 11/11/2020 12:00:00 AM EDT eCW1 [facility] (WC PROC) WCenter Procedure [address] [place] [address] 11/08/2020 12:00:00 AM EDT eCW1 ([facility]) Outpatient [address] [facility] [place] [address] 10/09/2020 12:00:00 AM EDT eCW1 [facility] Outpatient [address] [facility] [address] 09/24/2020 12:00:00 AM EST eCW1 [facility] Unknown [address] [facility] [address] 09/24/2020 12:00:00 AM EST eCW1 [facility] Outpatient [address] [facility] [address] 09/23/2020 12:00:00 AM EST eCW1 [facility] Unknown [address] [facility] [address] 09/20/2020 12:00:00 AM EST eCW1 [facility] Unknown [address] [facility] [address] 09/10/2020 12:00:00 AM EST eCW1 [facility] ( FU) Breast Center Follow Up [address] [place] [address] 08/23/2020 12:00:00 AM EST eCW1 ([facility]) Outpatient [address] [facility] [place] [address] 08/20/2020 12:00:00 AM EST eCW1 ([facility]) Unknown [address] [facility] [address] 08/12/2020 12:00:00 AM EST eCW1 ([facility]) Unknown [address] [facility] [address] 08/05/2020 12:00:00 AM EST eCW1 ([facility]) (BC FU) Breast Center Follow Up [address] [place] [address] 07/11/2020 12:00:00 AM EST eCW1 ([facility]) Unknown [address] [facility] [address] 07/10/2020 12:00:00 AM EST eCW1 ([facility]) Unknown [address] [facility] [address] 07/10/2020 12:00:00 AM EST eCW1 ([facility]) Unknown [address] [facility] [address] 07/05/2020 12:00:00 AM EST eCW1 ([facility]) Outpatient [address] [facility] [address] 07/05/2020 12:00:00 AM EST eCW1 ([facility]) Unknown [address] [facility] [address] 07/01/2020 12:00:00 AM EST eCW1 ([facility]) Outpatient [address] [facility] [address] 06/28/2020 12:00:00 AM EST eCW1 ([facility]) Outpatient [address] [facility] [address] 05/30/2020 12:00:00 AM EST eCW1 ([facility]) Unknown [address] [facility] [address] 05/28/2020 12:00:00 AM EST eCW1 ([facility]) Outpatient [address] [facility] [address] 05/10/2020 12:00:00 AM EDT eCW1 ([facility]) Unknown [address] [facility] [address] 04/29/2020 12:00:00 AM EDT eCW1 ([facility]) Unknown [address] [facility] [address] 04/29/2020 12:00:00 AM EDT eCW1 ([facility]) Immunizations Vaccine Date Status Description Data Source(s) INFLUENZA VIRUS VACCINE QUADRIVALENT 2019- (6 MOS AN D UP) 08/23/2020 12:00:00 AM EST completed [facility] Medications Medication Brand Name Start Date Product Form Dose Route Admi nistrative Instructions Pharmacy Instructions Status Indications Reaction Description Data Source(s) 1 mg 06/17/2021 12:00:00 AM EST tablet 10 TAKE ONE TABLET BY MOUTH EVERY DAY NEEDED FOR ANXIETY , MAXIMUM DAILY DOSE = 1 TABLET TAKE ONE TABLET BY MOUTH EVERY DAY NEEDED FOR ANXIETY , MAXIMUM DAILY DOSE = 1 TABLET SOLD: 06/17/2021 [facility] 60 ACTUAT Fluticasone propionate 0.113 M G/ACTUAT / Salmeterol xinafoate 0.014 MG/ACTUAT Dry Powder Inhaler 113-14 mcg/actuation FLUTICASONE PROPION/SALMETEROL 06/09/2021 12:00:00 AM EST aerosol powdr breath activated 2 INHALE 1 PUFF TWICE A DAY INHALE 1 PUFF TWICE A DAY SOLD: 06/17/2021 [facility] Fluconazole 150 MG Oral Tablet [Diflucan] Diflucan 150 MG Di flucan 150 MG 06/09/2021 12:00:00 AM EST 1.0 {tablet} active eCW1 ([facility]) 10 mg 06/09/2021 12:00:00 AM EST tablet 30 TAKE ONE TABLET BY MOUTH EVERY DAY TAKE ONE TABLET BY MOUTH EVERY DAY SOLD: 06/09/2021 [facility] Fluconazole 150 MG Oral Tablet [Diflucan] Diflucan 150 MG Di flucan 150 MG 06/09/2021 12:00:00 AM EST 1.0 {tablet} active Diflucan 150 MG eCW1 ([facility]) 150 mg 06/09/2021 12:00:00 AM EST tablet [...] 1.0 {tablet} active Diflucan 150 MG eCW1 ([facility]) Fluconazole 150 MG Oral Tablet [Diflucan] Diflucan 150 MG Di flucan 150 MG 04/07/2021 12:00:00 AM EDT 1.0 {tablet} active eCW1 ([facility]) 150 mg 04/07/2021 12:00:00 AM EDT tablet [...] DOSE THEN TAKE 2ND DOSE SOLD: 04/07/2021 [facility] Fluconazole 150 MG Oral Tablet [Diflucan] Diflucan 150 MG Di flucan 150 MG 04/07/2021 12:00:00 AM EDT 1.0 {tablet} active Diflucan 150 MG eCW1 ([facility]) Fluconazole 150 MG Oral Tablet [Diflucan] Diflucan 150 MG Di flucan 150 MG 04/07/2021 12:00:00 AM EDT 1.0 {tablet} active Diflucan 150 MG eCW1 ([facility]) Fluconazole 150 MG Oral Tablet [Diflucan] Diflucan 150 MG Di flucan 150 MG 04/07/2021 12:00:00 AM EDT 1.0 {tablet} active Diflucan 150 MG eCW1 ([facility]) Fluconazole 150 MG Oral Tablet [Diflucan] Diflucan 150 MG Di flucan 150 MG 04/07/2021 12:00:00 AM EDT 1.0 {tablet} active Diflucan 150 MG eCW1 ([facility]) Fluconazole 150 MG Oral Tablet [Diflucan] Diflucan 150 MG Di flucan 150 MG 04/07/2021 12:00:00 AM EDT 1.0 {tablet} active Diflucan 150 MG eCW1 ([facility]) 20 mg 03/17/2021 12:00:00 AM EDT [...] {ml_as_needed} suspended guaiFENesin AC 100-10 MG/5ML eCW1 ([facility]) Codeine Phosphate 2 MG/ML / Guaifenesin 20 MG/ML Oral Solution guaiFENesin AC 100-10 MG/5ML guaiFENesin AC 100-10 MG/5ML 02/19/2021 12:00:00 AM EDT 10.0 {ml_as_needed} active guaiFENesin AC 10 0-10 MG/5ML eCW1 ([facility]) Codeine Phosphate 2 MG/ML / Guaifenesin 20 MG/ML Oral Solution guaiFENesin AC 100-10 MG/5ML guaiFENesin AC 100-10 MG/5ML 02/19/2021 12:00:00 AM EDT 10.0 {ml_as_needed} suspended eCW1 ([facility]) Codeine Phosphate 2 MG/ML / Guaifenesin 20 MG/ML Oral Solution guaiFENesin AC 100-10 MG/5ML guaiFENesin AC 100-10 MG/5ML 02/19/2021 12:00:00 AM EDT 10.0 {ml_as_needed} active eCW1 ([facility]) Codeine Phosphate 2 MG/ML / Guaifenesin 20 MG/ML Oral Solution guaiFENesin AC 100-10 MG/5ML guaiFENesin AC 100-10 MG/5ML 02/19/2021 12:00:00 AM EDT 10.0 {ml_as_needed} active guaiFENesin AC 10 0-10 MG/5ML eCW1 ([facility]) Codeine Phosphate 2 MG/ML / Guaifenesin 20 MG/ML Oral Solution guaiFENesin AC 100-10 MG/5ML guaiFENesin AC 100-10 MG/5ML 02/19/2021 12:00:00 AM EDT 10.0 {ml_as_needed} suspended guaiFENesin AC 100-10 MG/5ML eCW1 ([facility]) Codeine Phosphate 2 MG/ML / Guaifenesin 20 MG/ML Oral Solution guaiFENesin AC 100-10 MG/5ML guaiFENesin AC 100-10 MG/5ML 02/19/2021 12:00:00 AM EDT 10.0 {ml_as_needed} suspended guaiFENesin AC 100-10 MG/5ML eCW1 ([facility]) Codeine Phosphate 2 MG/ML / Guaifenesin 20 MG/ML Oral Solution guaiFENesin AC 100-10 MG/5ML guaiFENesin AC 100-10 MG/5ML 02/19/2021 12:00:00 AM EDT 10.0 {ml_as_needed} suspended guaiFENesin AC 100-10 MG/5ML eCW1 ([facility]) Codeine Phosphate 2 MG/ML / Guaifenesin 20 MG/ML Oral Solution guaiFENesin AC 100-10 MG/5ML guaiFENesin AC 100-10 MG/5ML 02/19/2021 12:00:00 AM EDT 10.0 {ml_as_needed} suspended guaiFENesin AC 100-10 MG/5ML eCW1 ([facility]) Codeine Phosphate 2 MG/ML / Guaifenesin 20 MG/ML Oral Solution guaiFENesin AC 100-10 MG/5ML guaiFENesin AC 100-10 MG/5ML 02/19/2021 12:00:00 AM EDT 10.0 {ml_as_needed} suspended guaiFENesin AC 100-10 MG/5ML eCW1 ([facility]) Codeine Phosphate 2 MG/ML / Guaifenesin 20 MG/ML Oral Solution guaiFENesin AC 100-10 MG/5ML guaiFENesin AC 100-10 MG/5ML 02/19/2021 12:00:00 AM EDT 10.0 {ml_as_needed} active guaiFENesin AC 10 0-10 MG/5ML eCW1 ([facility]) 4 mg 02/18/2021 12:00:00 AM EDT [...] active HYDROcodone Bitartrate ER 10 MG eCW1 ([facility]) HYDROcodone Bitartrate ER 10 MG HYDROcodone Bitartrate ER 10 MG 12/31/2020 12:00:00 AM EDT 1.0 {capsule} suspended eCW1 ([facility]) Acetaminophen 325 MG / Hydrocodone Bee trate 5 MG Oral Tablet HYDROcodone- Acetaminophen 5-325 MG HYDROcodone-Acetaminophen 5-325 MG 12/31/2020 12:00:00 AM EDT 1.0 {tablet_as_needed} suspended HYDROcodone-Acetaminophen 5- 325 MG eCW1 ([facility]) Acetaminophen 325 MG / Hydrocodone Bee trate 5 MG Oral Tablet HYDROcodone- Acetaminophen 5-325 MG HYDROcodone-Acetaminophen 5-325 MG 12/31/2020 12:00:00 AM EDT 1.0 {tablet_as_needed} active HYDROcodone-Acetaminophen 5-325 MG eCW1 ([facility]) Acetaminophen 325 MG / Hydrocodone Bee trate 5 MG Oral Tablet HYDROcodone- Acetaminophen 5-325 MG HYDROcodone-Acetaminophen 5-325 MG 12/31/2020 12:00:00 AM EDT 1.0 {tablet_as_needed} active HYDROcodone-Acetaminophen 5-325 MG eCW1 ([facility]) HYDROcodone Bitartrate ER 10 MG HYDROcodone Bitartrate ER 10 MG 12/31/2020 12:00:00 AM EDT 1.0 {capsule} suspended HYDROcodone Bitartrate ER 10 MG eCW1 ([facility]) Acetaminophen 325 MG / Hydrocodone Bee trate 5 MG Oral Tablet HYDROcodone- Acetaminophen 5-325 MG HYDROcodone-Acetaminophen 5-325 MG 12/31/2020 12:00:00 AM EDT 1.0 {tablet_as_needed} suspended HYDROcodone-Acetaminophen 5- 325 MG eCW1 ([facility]) HYDROcodone Bitartrate ER 10 MG HYDROcodone Bitartrate ER 10 MG 12/31/2020 12:00:00 AM EDT 1.0 {capsule} active HYDROcodone Bitartrate ER 10 MG eCW1 ([facility]) Acetaminophen 325 MG / Hydrocodone Bee trate 5 MG Oral Tablet HYDROcodone- Acetaminophen 5-325 MG HYDROcodone-Acetaminophen 5-325 MG 12/31/2020 12:00:00 AM EDT 1.0 {tablet_as_needed} active HYDROcodone-Acetaminophen 5-325 MG eCW1 ([facility]) HYDROcodone Bitartrate ER 10 MG HYDROcodone Bitartrate ER 10 MG 12/31/2020 12:00:00 AM EDT 1.0 {capsule} active HYDROcodone Bitartrate ER 10 MG eCW1 ([facility]) HYDROcodone Bitartrate ER 10 MG HYDROcodone Bitartrate ER 10 MG 12/31/2020 12:00:00 AM EDT 1.0 {capsule} suspended HYDROcodone Bitartrate ER 10 MG eCW1 ([facility]) Acetaminophen 325 MG / Hydrocodone Bee trate 5 MG Oral Tablet HYDROcodone- Acetaminophen 5-325 MG HYDROcodone-Acetaminophen 5-325 MG 12/31/2020 12:00:00 AM EDT 1.0 {tablet_as_needed} active HYDROcodone-Acetaminophen 5-325 MG eCW1 ([facility]) HYDROcodone Bitartrate ER 10 MG HYDROcodone Bitartrate ER 10 MG 12/31/2020 12:00:00 AM EDT 1.0 {capsule} active HYDROcodone Bitartrate ER 10 MG eCW1 ([facility]) HYDROcodone Bitartrate ER 10 MG HYDROcodone Bitartrate ER 10 MG 12/31/2020 12:00:00 AM EDT 1.0 {capsule} suspended HYDROcodone Bitartrate ER 10 MG eCW1 ([facility]) Acetaminophen 325 MG / Hydrocodone Bee trate 5 MG Oral Tablet HYDROcodone- Acetaminophen 5-325 MG HYDROcodone-Acetaminophen 5-325 MG 12/31/2020 12:00:00 AM EDT 1.0 {tablet_as_needed} suspended HYDROcodone-Acetaminophen 5- 325 MG eCW1 ([facility]) HYDROcodone Bitartrate ER 10 MG HYDROcodone Bitartrate ER 10 MG 12/31/2020 12:00:00 AM EDT 1.0 {capsule} suspended HYDROcodone Bitartrate ER 10 MG eCW1 ([facility]) Acetaminophen 325 MG / Hydrocodone Bee trate 5 MG Oral Tablet HYDROcodone- Acetaminophen 5-325 MG HYDROcodone-Acetaminophen 5-325 MG 12/31/2020 12:00:00 AM EDT 1.0 {tablet_as_needed} active HYDROcodone-Acetaminophen 5-325 MG eCW1 ([facility]) Acetaminophen 325 MG / Hydrocodone Bee trate 5 MG Oral Tablet HYDROcodone- Acetaminophen 5-325 MG HYDROcodone-Acetaminophen 5-325 MG 12/31/2020 12:00:00 AM EDT 1.0 {tablet_as_needed} active HYDROcodone-Acetaminophen 5-325 MG eCW1 ([facility]) HYDROcodone Bitartrate ER 10 MG HYDROcodone Bitartrate ER 10 MG 12/31/2020 12:00:00 AM EDT 1.0 {capsule} active HYDROcodone Bitartrate ER 10 MG eCW1 ([facility]) HYDROcodone Bitartrate ER 10 MG HYDROcodone Bitartrate ER 10 MG 12/31/2020 12:00:00 AM EDT 1.0 {capsule} active HYDROcodone Bitartrate ER 10 MG eCW1 ([facility]) Acetaminophen 325 MG / Hydrocodone Bee trate 5 MG Oral Tablet HYDROcodone- Acetaminophen 5-325 MG HYDROcodone-Acetaminophen 5-325 MG 12/31/2020 12:00:00 AM EDT 1.0 {tablet_as_needed} active eCW1 ([facility]) Acetaminophen 325 MG / Hydrocodone Bee trate 5 MG Oral Tablet HYDROcodone- Acetaminophen 5-325 MG HYDROcodone-Acetaminophen 5-325 MG 12/31/2020 12:00:00 AM EDT 1.0 {tablet_as_needed} suspended HYDROcodone-Acetaminophen 5- 325 MG eCW1 ([facility]) Acetaminophen 325 MG / Hydrocodone Bee trate 5 MG Oral Tablet HYDROcodone- Acetaminophen 5-325 MG HYDROcodone-Acetaminophen 5-325 MG 12/31/2020 12:00:00 AM EDT 1.0 {tablet_as_needed} active HYDROcodone-Acetaminophen 5-325 MG eCW1 ([facility]) Acetaminophen 325 MG / Hydrocodone Bee trate 5 MG Oral Tablet HYDROcodone- Acetaminophen 5-325 MG HYDROcodone-Acetaminophen 5-325 MG 12/31/2020 12:00:00 AM EDT 1.0 {tablet_as_needed} suspended HYDROcodone-Acetaminophen 5- 325 MG eCW1 ([facility]) Acetaminophen 325 MG / Hydrocodone Bee trate 5 MG Oral Tablet HYDROcodone- Acetaminophen 5-325 MG HYDROcodone-Acetaminophen 5-325 MG 12/31/2020 12:00:00 AM EDT 1.0 {tablet_as_needed} suspended eCW1 ([facility]) HYDROcodone Bitartrate ER 10 MG HYDROcodone Bitartrate ER 10 MG 12/31/2020 12:00:00 AM EDT 1.0 {capsule} active HYDROcodone Bitartrate ER 10 MG eCW1 ([facility]) HYDROcodone Bitartrate ER 10 MG HYDROcodone Bitartrate ER 10 MG 12/31/2020 12:00:00 AM EDT 1.0 {capsule} active eCW1 ([facility]) HYDROcodone Bitartrate ER 10 MG HYDROcodone Bitartrate ER 10 MG 12/31/2020 12:00:00 AM EDT 1.0 {capsule} suspended HYDROcodone Bitartrate ER 10 MG eCW1 ([facility]) Acetaminophen 325 MG / Hydrocodone Bee trate 5 MG Oral Tablet HYDROcodone- Acetaminophen 5-325 MG HYDROcodone-Acetaminophen 5-325 MG 12/31/2020 12:00:00 AM EDT 1.0 {tablet_as_needed} suspended HYDROcodone-Acetaminophen 5- 325 MG eCW1 ([facility]) HYDROcodone Bitartrate ER 10 MG HYDROcodone Bitartrate ER 10 MG 12/31/2020 12:00:00 AM EDT 1.0 {capsule} active HYDROcodone Bitartrate ER 10 MG eCW1 ([facility]) HYDROcodone Bitartrate ER 10 MG HYDROcodone Bitartrate ER 10 MG 12/31/2020 12:00:00 AM EDT 1.0 {capsule} suspended HYDROcodone Bitartrate ER 10 MG eCW1 ([facility]) Acetaminophen 325 MG / Hydrocodone Bee trate 5 MG Oral Tablet HYDROcodone- Acetaminophen 5-325 MG HYDROcodone-Acetaminophen 5-325 MG 12/31/2020 12:00:00 AM EDT 1.0 {tablet_as_needed} active HYDROcodone-Acetaminophen 5-325 MG eCW1 ([facility]) Acetaminophen 325 MG / Hydrocodone Bitartrate [...] 1.0 {tablet_as_needed} active HYDROcodone-Acetaminophen 5-325 MG eCW1 ([facility]) HYDROcodone Bitartrate ER 10 MG HYDROcodone Bitartrate ER 10 MG 12/31/2020 12:00:00 AM EDT 1.0 {capsule} active HYDROcodone Bitartrate ER 10 MG eCW1 ([facility]) 100 mg 12/29/2020 12:00:00 AM EDT [...] active Heparin Sodium (Porcine) 5000 UNIT/ML eCW1 ([facility]) heparin sodium, porcine 5000 UNT/ML Inje ctable Solution Heparin Sodium (Porcine) 5000 UNIT/ML Heparin Sodium (Porcine) 5000 UNIT/ML 12/24/2020 12:00:00 AM EDT 1.0 {ml} suspended eCW1 ([facility]) heparin sodium, porcine 5000 UNT/ML Inje ctable Solution Heparin Sodium (Porcine) 5000 UNIT/ML Heparin Sodium (Porcine) 5000 UNIT/ML 12/24/2020 12:00:00 AM EDT 1.0 {ml} suspended Heparin Sodiu m (Porcine) 5000 UNIT/ML eCW1 ([facility]) heparin sodium, porcine 5000 UNT/ML Inje ctable Solution Heparin Sodium (Porcine) 5000 UNIT/ML Heparin Sodium (Porcine) 5000 UNIT/ML 12/24/2020 12:00:00 AM EDT 1.0 {ml} suspended Heparin Sodiu m (Porcine) 5000 UNIT/ML eCW1 ([facility]) heparin sodium, porcine 5000 UNT/ML Inje ctable Solution Heparin Sodium (Porcine) 5000 UNIT/ML Heparin Sodium (Porcine) 5000 UNIT/ML 12/24/2020 12:00:00 AM EDT 1.0 {ml} active Heparin Sodium (Porcine) 5000 UNIT/ML eCW1 ([facility]) heparin sodium, porcine 5000 UNT/ML Inje ctable Solution Heparin Sodium (Porcine) 5000 UNIT/ML Heparin Sodium (Porcine) 5000 UNIT/ML 12/24/2020 12:00:00 AM EDT 1.0 {ml} suspended Heparin Sodiu m (Porcine) 5000 UNIT/ML eCW1 ([facility]) heparin sodium, porcine 5000 UNT/ML Inje ctable Solution Heparin Sodium (Porcine) 5000 UNIT/ML Heparin Sodium (Porcine) 5000 UNIT/ML 12/24/2020 12:00:00 AM EDT 1.0 {ml} active Heparin Sodium (Porcine) 5000 UNIT/ML eCW1 ([facility]) heparin sodium, porcine 5000 UNT/ML Inje ctable Solution Heparin Sodium (Porcine) 5000 UNIT/ML Heparin Sodium (Porcine) 5000 UNIT/ML 12/24/2020 12:00:00 AM EDT 1.0 {ml} suspended Heparin Sodiu m (Porcine) 5000 UNIT/ML eCW1 ([facility]) heparin sodium, porcine 5000 UNT/ML Inje ctable Solution Heparin Sodium (Porcine) 5000 UNIT/ML Heparin Sodium (Porcine) 5000 UNIT/ML 12/24/2020 12:00:00 AM EDT 1.0 {ml} active Heparin Sodium (Porcine) 5000 UNIT/ML eCW1 ([facility]) heparin sodium, porcine 5000 UNT/ML Inje ctable Solution Heparin Sodium (Porcine) 5000 UNIT/ML Heparin Sodium (Porcine) 5000 UNIT/ML 12/24/2020 12:00:00 AM EDT 1.0 {ml} active Heparin Sodium (Porcine) 5000 UNIT/ML eCW1 ([facility]) heparin sodium, porcine 5000 UNT/ML Inje ctable Solution Heparin Sodium (Porcine) 5000 UNIT/ML Heparin Sodium (Porcine) 5000 UNIT/ML 12/24/2020 12:00:00 AM EDT 1.0 {ml} active Heparin Sodium (Porcine) 5000 UNIT/ML eCW1 ([facility]) heparin sodium, porcine 5000 UNT/ML Inje ctable Solution Heparin Sodium (Porcine) 5000 UNIT/ML Heparin Sodium (Porcine) 5000 UNIT/ML 12/24/2020 12:00:00 AM EDT 1.0 {ml} active Heparin Sodium (Porcine) 5000 UNIT/ML eCW1 ([facility]) heparin sodium, porcine 5000 UNT/ML Inje ctable Solution Heparin Sodium (Porcine) 5000 UNIT/ML Heparin Sodium (Porcine) 5000 UNIT/ML 12/24/2020 12:00:00 AM EDT 1.0 {ml} active eCW1 ([facility]) heparin sodium, porcine 5000 UNT/ML Inje ctable Solution Heparin Sodium (Porcine) 5000 UNIT/ML Heparin Sodium (Porcine) 5000 UNIT/ML 12/24/2020 12:00:00 AM EDT 1.0 {ml} active Heparin Sodium (Porcine) 5000 UNIT/ML eCW1 ([facility]) heparin sodium, porcine 5000 UNT/ML Inje ctable Solution Heparin Sodium (Porcine) 5000 UNIT/ML Heparin Sodium (Porcine) 5000 UNIT/ML 12/24/2020 12:00:00 AM EDT 1.0 {ml} suspended Heparin Sodiu m (Porcine) 5000 UNIT/ML eCW1 ([facility]) heparin sodium, porcine 5000 UNT/ML Inje ctable Solution Heparin Sodium (Porcine) 5000 UNIT/ML Heparin Sodium (Porcine) 5000 UNIT/ML 12/24/2020 12:00:00 AM EDT 1.0 {ml} active Heparin Sodium (Porcine) 5000 UNIT/ML eCW1 ([facility]) heparin sodium, porcine 5000 UNT/ML Inje ctable Solution Heparin Sodium (Porcine) 5000 UNIT/ML Heparin Sodium (Porcine) 5000 UNIT/ML 12/24/2020 12:00:00 AM EDT 1.0 {ml} active Heparin Sodium (Porcine) 5000 UNIT/ML eCW1 ([facility]) heparin sodium, porcine 5000 UNT/ML Inje ctable Solution Heparin Sodium (Porcine) 5000 UNIT/ML Heparin Sodium (Porcine) 5000 UNIT/ML 12/24/2020 12:00:00 AM EDT 1.0 {ml} suspended Heparin Sodiu m (Porcine) 5000 UNIT/ML eCW1 ([facility]) heparin sodium, porcine 5000 UNT/ML Inje ctable Solution Heparin Sodium (Porcine) 5000 UNIT/ML Heparin Sodium (Porcine) 5000 UNIT/ML 12/24/2020 12:00:00 AM EDT 1.0 {ml} active Heparin Sodium (Porcine) 5000 UNIT/ML eCW1 ([facility]) heparin sodium, porcine 5000 UNT/ML Inje ctable Solution Heparin Sodium (Porcine) 5000 UNIT/ML Heparin Sodium (Porcine) 5000 UNIT/ML 12/24/2020 12:00:00 AM EDT 1.0 {ml} active Heparin Sodium (Porcine) 5000 UNIT/ML eCW1 ([facility]) Heparin Sodium (Porcine) 5000 unit/mL [facility] 12/18/2020 12:00:00 AM EDT active Heparin Sodium (Porcine) 5000 un it/mL eCW1 ([facility]) Heparin Sodium (Porcine) 5000 unit/mL K 12/18/2020 12:00:00 AM EDT active eCW1 ([facility]) Heparin Sodium (Porcine) 5000 unit/mL K 12/18/2020 12:00:00 AM EDT suspended Heparin Sodium (Porcine) 5000 un it/mL eCW1 ([facility]) Heparin Sodium (Porcine) 5000 unit/mL [facility] 12/18/2020 12:00:00 AM EDT active Heparin Sodium (Porcine) 5000 un it/mL eCW1 ([facility]) Heparin Sodium (Porcine) 5000 unit/mL K 12/18/2020 12:00:00 AM EDT suspended Heparin Sodium (Porcine) 5000 un it/mL eCW1 ([facility]) Heparin Sodium (Porcine) 5000 unit/mL [facility] 12/18/2020 12:00:00 AM EDT suspended Heparin Sodium (Porcine) 5000 un it/mL eCW1 ([facility]) Heparin Sodium (Porcine) 5000 unit/mL [facility] 12/18/2020 12:00:00 AM EDT active Heparin Sodium (Porcine) 5000 un it/mL eCW1 ([facility]) Heparin Sodium (Porcine) 5000 unit/mL [facility] 12/18/2020 12:00:00 AM EDT active Heparin Sodium (Porcine) 5000 un it/mL eCW1 ([facility]) Heparin Sodium (Porcine) 5000 unit/mL [facility] 12/18/2020 12:00:00 AM EDT active Heparin Sodium (Porcine) 5000 un it/mL eCW1 ([facility]) Heparin Sodium (Porcine) 5000 unit/mL [facility] 12/18/2020 12:00:00 AM EDT suspended Heparin Sodium (Porcine) 5000 un it/mL eCW1 ([facility]) Heparin Sodium (Porcine) 5000 unit/mL [facility] 12/18/2020 12:00:00 AM EDT active Heparin Sodium (Porcine) 5000 un it/mL eCW1 ([facility]) Heparin Sodium (Porcine) 5000 unit/mL [facility] 12/18/2020 12:00:00 AM EDT suspended Heparin Sodium (Porcine) 5000 un it/mL eCW1 ([facility]) Heparin Sodium (Porcine) 5000 unit/mL [facility] 12/18/2020 12:00:00 AM EDT active Heparin Sodium (Porcine) 5000 un it/mL eCW1 ([facility]) Heparin Sodium (Porcine) 5000 unit/mL [facility] 12/18/2020 12:00:00 AM EDT active Heparin Sodium (Porcine) 5000 un it/mL eCW1 ([facility]) Heparin Sodium (Porcine) 5000 unit/mL [facility] 12/18/2020 12:00:00 AM EDT active Heparin Sodium (Porcine) 5000 un it/mL eCW1 ([facility]) Heparin Sodium (Porcine) 5000 unit/mL [facility] 12/18/2020 12:00:00 AM EDT active Heparin Sodium (Porcine) 5000 un it/mL eCW1 ([facility]) Heparin Sodium (Porcine) 5000 unit/mL UNK 12/18/2020 12:00:00 AM EDT active Heparin Sodium (Porcine) 5000 un it/mL eCW1 ([facility]) Heparin Sodium (Porcine) 5000 unit/mL UNK 12/18/2020 12:00:00 AM EDT active Heparin Sodium (Porcine) 5000 un it/mL eCW1 ([facility]) Heparin Sodium (Porcine) 5000 unit/mL K 12/18/2020 12:00:00 AM EDT suspended Heparin Sodium (Porcine) 5000 un it/mL eCW1 ([facility]) Heparin Sodium (Porcine) 5000 unit/mL K 12/18/2020 12:00:00 AM EDT active Heparin Sodium (Porcine) 5000 un it/mL eCW1 ([facility]) Heparin Sodium (Porcine) 5000 unit/mL K 12/18/2020 12:00:00 AM EDT suspended eCW1 ([facility]) 750 mg 12/17/2020 12:00:00 AM EDT [...] Drugs Nystatin 100 UNT/MG Topical Powder Nystatin 558661 UNI T/GM Nystatin 473740 UNIT/GM 11/08/2020 12:00:00 AM EDT 1.0 {application} active Nystatin 435228 UNIT/GM eCW1 ([facility]) Nystatin 100 UNT/MG Topical Powder Nystatin 874586 UNI T/GM Nystatin 828132 UNIT/GM 11/08/2020 12:00:00 AM EDT 1.0 {application} active Nystatin 330955 UNIT/GM eCW1 ([facility]) Nystatin 100 UNT/MG Topical Powder Nystatin 174887 UNI T/GM Nystatin 077812 UNIT/GM 11/08/2020 12:00:00 AM EDT 1.0 {application} active Nystatin 685534 UNIT/GM eCW1 ([facility]) Nystatin 100 UNT/MG Topical Powder Nystatin 110652 UNI T/GM Nystatin 988355 UNIT/GM 11/08/2020 12:00:00 AM EDT 1.0 {application} act ash eCW1 ([facility]) Nystatin 100 UNT/MG Topical Powder Nystatin 439949 UNI T/GM Nystatin 950953 UNIT/GM 11/08/2020 12:00:00 AM EDT 1.0 {application} active Nystatin 353047 UNIT/GM eCW1 ([facility]) Nystatin 100 UNT/MG Topical Powder Nystatin 842229 UNI T/GM Nystatin 283983 UNIT/GM 11/08/2020 12:00:00 AM EDT 1.0 {application} suspended Nystatin 836394 UNIT/GM eCW1 ([facility]) Nystatin 100 UNT/MG Topical Powder Nystatin 567264 UNI T/GM Nystatin 997669 UNIT/GM 11/08/2020 12:00:00 AM EDT 1.0 {application} suspended Nystatin 323769 UNIT/GM eCW1 ([facility]) Nystatin 100 UNT/MG Topical Powder Nystatin 105066 UNI T/GM Nystatin 789401 UNIT/GM 11/08/2020 12:00:00 AM EDT 1.0 {application} active Nystatin 330755 UNIT/GM eCW1 ([facility]) Nystatin 100 UNT/MG Topical Powder Nystatin 493655 UNI T/GM Nystatin 195423 UNIT/GM 11/08/2020 12:00:00 AM EDT 1.0 {application} active Nystatin 585243 UNIT/GM eCW1 ([facility]) Nystatin 100 UNT/MG Topical Powder Nystatin 561996 UNI T/GM Nystatin 678841 UNIT/GM 11/08/2020 12:00:00 AM EDT 1.0 {application} active Nystatin 685804 UNIT/GM eCW1 ([facility]) Nystatin 100 UNT/MG Topical Powder Nystatin 782061 UNI T/GM Nystatin 870671 UNIT/GM 11/08/2020 12:00:00 AM EDT 1.0 {application} neil pended eCW1 ([facility]) Nystatin 100 UNT/MG Topical Powder Nystatin 705822 UNI T/GM Nystatin 183696 UNIT/GM 11/08/2020 12:00:00 AM EDT 1.0 {application} active Nystatin 205755 UNIT/GM eCW1 ([facility]) Nystatin 100 UNT/MG Topical Powder Nystatin 285594 UNI T/GM Nystatin 937188 UNIT/GM 11/08/2020 12:00:00 AM EDT 1.0 {application} active Nystatin 599782 UNIT/GM eCW1 ([facility]) Nystatin 100 UNT/MG Topical Powder Nystatin 359349 UNI T/GM Nystatin 761633 UNIT/GM 11/08/2020 12:00:00 AM EDT 1.0 {application} active Nystatin 098371 UNIT/GM eCW1 ([facility]) Nystatin 100 UNT/MG Topical Powder Nystatin 727506 UNI T/GM Nystatin 445435 UNIT/GM 11/08/2020 12:00:00 AM EDT 1.0 {application} active Nystatin 042598 UNIT/GM eCW1 ([facility]) Nystatin 100 UNT/MG Topical Powder Nystatin 452595 UNI T/GM Nystatin 095557 UNIT/GM 11/08/2020 12:00:00 AM EDT 1.0 {application} active Nystatin 581630 UNIT/GM eCW1 ([facility]) Nystatin 100 UNT/MG Topical Powder Nystatin 322401 UNI T/GM Nystatin 095071 UNIT/GM 11/08/2020 12:00:00 AM EDT 1.0 {application} active Nystatin 369425 UNIT/GM eCW1 ([facility]) Nystatin 100 UNT/MG Topical Powder Nystatin 436725 UNI T/GM Nystatin 525304 UNIT/GM 11/08/2020 12:00:00 AM EDT 1.0 {application} suspended Nystatin 754605 UNIT/GM eCW1 ([facility]) Nystatin 100 UNT/MG Topical Powder Nystatin 314591 UNI T/GM Nystatin 056415 UNIT/GM 11/08/2020 12:00:00 AM EDT 1.0 {application} suspended Nystatin 495797 UNIT/GM eCW1 ([facility]) Nystatin 100 UNT/MG Topical Powder Nystatin 126903 UNI T/GM Nystatin 934561 UNIT/GM 11/08/2020 12:00:00 AM EDT 1.0 {application} active Nystatin 092473 UNIT/GM eCW1 ([facility]) Nystatin 100 UNT/MG Topical Powder Nystatin 777899 UNI T/GM Nystatin 244523 UNIT/GM 11/08/2020 12:00:00 AM EDT 1.0 {application} active Nystatin 169929 UNIT/GM eCW1 ([facility]) Nystatin 100 UNT/MG Topical Powder Nystatin 135011 UNI T/GM Nystatin 988068 UNIT/GM 11/08/2020 12:00:00 AM EDT 1.0 {application} suspended Nystatin 968973 UNIT/GM eCW1 ([facility]) Nystatin 100 UNT/MG Topical Powder Nystatin 825728 UNI T/GM Nystatin 613206 UNIT/GM 11/08/2020 12:00:00 AM EDT 1.0 {application} active Nystatin 085092 UNIT/GM eCW1 ([facility]) Nystatin 100 UNT/MG Topical Powder Nystatin 854419 UNI T/GM Nystatin 114568 UNIT/GM 11/08/2020 12:00:00 AM EDT 1.0 {application} active Nystatin 755191 UNIT/GM eCW1 ([facility]) Nystatin 100 UNT/MG Topical Powder Nystatin 491182 UNI T/GM Nystatin 970134 UNIT/GM 11/08/2020 12:00:00 AM EDT 1.0 {application} active Nystatin 314326 UNIT/GM eCW1 ([facility]) Nystatin 100 UNT/MG Topical Powder Nystatin 248841 UNI T/GM Nystatin 745345 UNIT/GM 11/08/2020 12:00:00 AM EDT 1.0 {application} suspended Nystatin 941130 UNIT/GM eCW1 ([facility]) 25 mg 10/25/2020 12:00:00 AM EDT tablet 30 TAKE ONE TABLET BY MOUTH ONCE DAILY NEEDED FOR ANXIETY TAKE ONE TABLET BY MOUTH ONCE DAILY N EEDED FOR ANXIETY SOLD: 10/25/2020 [facility] Clobetasol Prop Emollient Base 0.05 % Clobetasol Prop Emolli ent Base 0.05 % 10/09/2020 12:00:00 AM EDT active Clobetasol Prop Emollient Base 0.05 % eCW1 ([facility]) Clobetasol Prop Emollient Base 0.05 % Clobetasol Prop Emolli ent Base 0.05 % 10/09/2020 12:00:00 AM EDT active Clobetasol Prop Emollient Base 0.05 % eCW1 ([facility]) Clobetasol Prop Emollient Base 0.05 % Clobetasol Prop Emolli ent Base 0.05 % 10/09/2020 12:00:00 AM EDT active Clobetasol Prop Emollient Base 0.05 % eCW1 ([facility]) Clobetasol Prop Emollient Base 0.05 % Clobetasol Prop Emolli ent Base 0.05 % 10/09/2020 12:00:00 AM EDT suspended Clobetasol Prop Emollient Base 0.05 % eCW1 ([facility]) Clobetasol Prop Emollient Base 0.05 % Clobetasol Prop Emolli ent Base 0.05 % 10/09/2020 12:00:00 AM EDT active Clobetasol Prop Emollient Base 0.05 % eCW1 ([facility]) Clobetasol Prop Emollient Base 0.05 % Clobetasol Prop Emolli ent Base 0.05 % 10/09/2020 12:00:00 AM EDT active Clobetasol Prop Emollient Base 0.05 % eCW1 ([facility]) Clobetasol Prop Emollient Base 0.05 % Clobetasol Prop Emolli ent Base 0.05 % 10/09/2020 12:00:00 AM EDT active eCW1 ([facility]) Clobetasol Prop Emollient Base 0.05 % Clobetasol Prop Emolli ent Base 0.05 % 10/09/2020 12:00:00 AM EDT suspended Clobetasol Prop Emollient Base 0.05 % eCW1 ([facility]) Clobetasol Prop Emollient Base 0.05 % Clobetasol Prop Emolli ent Base 0.05 % 10/09/2020 12:00:00 AM EDT suspended Clobetasol Prop Emollient Base 0.05 % eCW1 ([facility]) Clobetasol Prop Emollient Base 0.05 % Clobetasol Prop Emolli ent Base 0.05 % 10/09/2020 12:00:00 AM EDT active Clobetasol Prop Emollient Base 0.05 % eCW1 ([facility]) Clobetasol Prop Emollient Base 0.05 % Clobetasol Prop Emolli ent Base 0.05 % 10/09/2020 12:00:00 AM EDT active Clobetasol Prop Emollient Base 0.05 % eCW1 ([facility]) Clobetasol Prop Emollient Base 0.05 % Clobetasol Prop Emolli ent Base 0.05 % 10/09/2020 12:00:00 AM EDT active Clobetasol Prop Emollient Base 0.05 % eCW1 ([facility]) Clobetasol Prop Emollient Base 0.05 % Clobetasol Prop Emolli ent Base 0.05 % 10/09/2020 12:00:00 AM EDT suspended Clobetasol Prop Emollient Base 0.05 % eCW1 ([facility]) Clobetasol Prop Emollient Base 0.05 % Clobetasol Prop Emolli ent Base 0.05 % 10/09/2020 12:00:00 AM EDT active Clobetasol Prop Emollient Base 0.05 % eCW1 ([facility]) Clobetasol Prop Emollient Base 0.05 % Clobetasol Prop Emolli ent Base 0.05 % 10/09/2020 12:00:00 AM EDT active Clobetasol Prop Emollient Base 0.05 % eCW1 ([facility]) Clobetasol Prop Emollient Base 0.05 % Clobetasol Prop Emolli ent Base 0.05 % 10/09/2020 12:00:00 AM EDT active Clobetasol Prop Emollient Base 0.05 % eCW1 ([facility]) Clobetasol Prop Emollient Base 0.05 % Clobetasol Prop Emolli ent Base 0.05 % 10/09/2020 12:00:00 AM EDT suspended Clobetasol Prop Emollient Base 0.05 % eCW1 ([facility]) Clobetasol Prop Emollient Base 0.05 % Clobetasol Prop Emolli ent Base 0.05 % 10/09/2020 12:00:00 AM EDT active Clobetasol Prop Emollient Base 0.05 % eCW1 ([facility]) Clobetasol Prop Emollient Base 0.05 % Clobetasol Prop Emolli ent Base 0.05 % 10/09/2020 12:00:00 AM EDT active Clobetasol Prop Emollient Base 0.05 % eCW1 ([facility]) Clobetasol Prop Emollient Base 0.05 % Clobetasol Prop Emolli ent Base 0.05 % 10/09/2020 12:00:00 AM EDT active Clobetasol Prop Emollient Base 0.05 % eCW1 ([facility]) Clobetasol Prop Emollient Base 0.05 % Clobetasol Prop Emolli ent Base 0.05 % 10/09/2020 12:00:00 AM EDT active Clobetasol Prop Emollient Base 0.05 % eCW1 ([facility]) Clobetasol Prop Emollient Base 0.05 % Clobetasol Prop Emolli ent Base 0.05 % 10/09/2020 12:00:00 AM EDT active Clobetasol Prop Emollient Base 0.05 % eCW1 ([facility]) Clobetasol Prop Emollient Base 0.05 % Clobetasol Prop Emolli ent Base 0.05 % 10/09/2020 12:00:00 AM EDT active Clobetasol Prop Emollient Base 0.05 % eCW1 ([facility]) Clobetasol Prop Emollient Base 0.05 % Clobetasol Prop Emolli ent Base 0.05 % 10/09/2020 12:00:00 AM EDT suspended eCW1 ([facility]) Clobetasol Prop Emollient Base 0.05 % Clobetasol Prop Emolli ent Base 0.05 % 10/09/2020 12:00:00 AM EDT active Clobetasol Prop Emollient Base 0.05 % eCW1 ([facility]) 0.05 % 10/09/2020 12:00:00 AM EDT [...] Clobetasol Prop Emollient Base 0.05 % eCW1 ([facility]) Clobetasol Prop Emollient Base 0.05 % Clobetasol Prop Emolli ent Base 0.05 % 10/09/2020 12:00:00 AM EDT active Clobetasol Prop Emollient Base 0.05 % eCW1 ([facility]) Levaquin 750 MG UNK 09/24/2020 12:00:00 AM EST 1.0 {tablet} active Levaquin 750 MG eCW1 ([facility]) Levaquin 750 MG UNK 09/24/2020 12:00:00 AM EST 1.0 {tablet} active Levaquin 750 MG eCW1 ([facility]) Levaquin 750 MG UNK 09/24/2020 12:00:00 AM EST 1.0 {tablet} active Levaquin 750 MG eCW1 ([facility]) Levaquin 750 MG UNK 09/24/2020 12:00:00 AM EST 1.0 {tablet} active Levaquin 750 MG eCW1 ([facility]) 750 mg 09/24/2020 12:00:00 AM EST tablet 10 TAKE ONE TABLET BY MOUTH EVERY DAY FOR 10 DAYS TAKE ONE TABLET BY MOUTH EVERY DAY FOR 10 DAYS SOLD: 021 [facility] Levaquin 750 MG UNK 09/24/2020 12:00:00 AM EST 1.0 {tablet} active Levaquin 750 MG eCW1 ([facility]) 10-100 mg/5 mL 09/23/2020 12:00:00 AM EST liquid 180 TAKE 10ML BY MOUTH EVERY 4 HOURS NEEDED , MAXIMUM DAILY DOSE = 60ML TAKE 10ML BY MOUTH EVERY 4 HOURS NEEDED , MAXIMUM DAILY DOSE = 60ML SOLD: 09/23/2020 [facility] Cheratussin AC 100-10 MG/5ML UNK 09/23/2020 12:00:00 AM ES T 10.0 {ml_as_needed} active Cheratussin AC 10 0-10 MG/5ML eCW1 ([facility]) Cheratussin AC 100-10 MG/5ML UNK 09/23/2020 12:00:00 AM ES T 10.0 {ml_as_needed} active Cheratussin AC 10 0-10 MG/5ML eCW1 ([facility]) Cheratussin AC 100-10 MG/5ML UNK 09/23/2020 12:00:00 AM ES T 10.0 {ml_as_needed} active Cheratussin AC 10 0-10 MG/5ML eCW1 ([facility]) Cheratussin AC 100-10 MG/5ML UNK 09/23/2020 12:00:00 AM ES T 10.0 {ml_as_needed} active Cheratussin AC 10 0-10 MG/5ML eCW1 ([facility]) Cheratussin AC 100-10 MG/5ML UNK 09/23/2020 12:00:00 AM ES T 10.0 {ml_as_needed} active Cheratussin AC 10 0-10 MG/5ML eCW1 ([facility]) 20 mg 09/16/2020 12:00:00 AM EST [...] AM EST active May Have - eCW1 ([facility]) May Have - UNK 09/10/2020 12:00:00 AM EST active May Have - eCW1 ([facility]) May Have - UNK 09/10/2020 12:00:00 AM EST active May Have - eCW1 ([facility]) May Have - UNK 09/10/2020 12:00:00 AM EST suspend ed May Have - eCW1 ([facility]) May Have - UNK 09/10/2020 12:00:00 AM EST active May Have - eCW1 ([facility]) May Have - UNK 09/10/2020 12:00:00 AM EST active May Have - eCW1 ([facility]) May Have - UNK 09/10/2020 12:00:00 AM EST suspend ed May Have - eCW1 ([facility]) May Have - UNK 09/10/2020 12:00:00 AM EST active May Have - eCW1 ([facility]) May Have - UNK 09/10/2020 12:00:00 AM EST active May Have - eCW1 ([facility]) May Have - UNK 09/10/2020 12:00:00 AM EST active May Have - eCW1 ([facility]) May Have - UNK 09/10/2020 12:00:00 AM EST suspend ed eCW1 ([facility]) May Have - UNK 09/10/2020 12:00:00 AM EST active May Have - eCW1 ([facility]) May Have - UNK 09/10/2020 12:00:00 AM EST active May Have - eCW1 ([facility]) May Have - UNK 09/10/2020 12:00:00 AM EST suspend ed May Have - eCW1 ([facility]) May Have - UNK 09/10/2020 12:00:00 AM EST active May Have - eCW1 ([facility]) May Have - UNK 09/10/2020 12:00:00 AM EST active May Have - eCW1 ([facility]) May Have - UNK 09/10/2020 12:00:00 AM EST active May Have - eCW1 ([facility]) May Have - UNK 09/10/2020 12:00:00 AM EST suspend ed May Have - eCW1 ([facility]) May Have - UNK 09/10/2020 12:00:00 AM EST active May Have - eCW1 ([facility]) May Have - UNK 09/10/2020 12:00:00 AM EST active May Have - eCW1 ([facility]) May Have - UNK 09/10/2020 12:00:00 AM EST active eCW1 ([facility]) May Have - UNK 09/10/2020 12:00:00 AM EST active May Have - eCW1 ([facility]) May Have - UNK 09/10/2020 12:00:00 AM EST suspend ed May Have - eCW1 ([facility]) May Have - UNK 09/10/2020 12:00:00 AM EST active May Have - eCW1 ([facility]) May Have - UNK 09/10/2020 12:00:00 AM EST suspend ed May Have - eCW1 ([facility]) May Have - UNK 09/10/2020 12:00:00 AM EST active May Have - eCW1 ([facility]) May Have - UNK 09/10/2020 12:00:00 AM EST active May Have - eCW1 ([facility]) May Have - UNK 09/10/2020 12:00:00 AM EST active May Have - eCW1 ([facility]) May Have - UNK 09/10/2020 12:00:00 AM EST active May Have - eCW1 ([facility]) May Have - UNK 09/10/2020 12:00:00 AM EST active May Have - eCW1 ([facility]) May Have - UNK 09/10/2020 12:00:00 AM EST active May Have - eCW1 ([facility]) May Have - UNK 09/10/2020 12:00:00 AM EST active May Have - eCW1 ([facility]) 25 mg 08/29/2020 12:00:00 AM EST tablet 60 TAKE 1/2 TO 1 TABLET BY MOUTH TWO TIMES A DAY NEEDED FOR ANXIETY TAKE 1/2 TO 1 TABLET BY MOUTH TWO TIMES A DAY NEEDED FOR ANXIETY SOLD: 08/30/2020 [facility] atorvastatin 20 MG Oral Tablet ATORVASTATIN CALCIUM [...] {tablet_as_needed} active O xycodone-Acetaminophen 5-325 MG eCW1 ([facility]) Acetaminophen 325 MG / Oxycodone Hydroch loride 5 MG Oral Tablet Oxycodone- Acetaminophen 5-325 MG Oxycodone-Acetaminophen 5-325 MG 07/10/2020 12:00:00 A M EST 1.0 {tablet_as_needed} active O xycodone-Acetaminophen 5-325 MG eCW1 ([facility]) Acetaminophen 325 MG / Oxycodone Hydroch loride 5 MG Oral Tablet Oxycodone- Acetaminophen 5-325 MG Oxycodone-Acetaminophen 5-325 MG 07/10/2020 12:00:00 A M EST 1.0 {tablet_as_needed} active O xycodone-Acetaminophen 5-325 MG eCW1 ([facility]) Acetaminophen 325 MG / Oxycodone Hydroch loride 5 MG Oral Tablet Oxycodone- Acetaminophen 5-325 MG Oxycodone-Acetaminophen 5-325 MG 07/10/2020 12:00:00 A M EST 1.0 {tablet_as_needed} active O xycodone-Acetaminophen 5-325 MG eCW1 ([facility]) Acetaminophen 325 MG / Oxycodone Hydroch loride 5 MG Oral Tablet Oxycodone- Acetaminophen 5-325 MG Oxycodone-Acetaminophen 5-325 MG 07/10/2020 12:00:00 A M EST 1.0 {tablet_as_needed} active O xycodone-Acetaminophen 5-325 MG eCW1 ([facility]) Acetaminophen 325 MG / Oxycodone Hydroch loride 5 MG Oral Tablet Oxycodone- Acetaminophen 5-325 MG Oxycodone-Acetaminophen 5-325 MG 07/10/2020 12:00:00 A M EST 1.0 {tablet_as_needed} active O xycodone-Acetaminophen 5-325 MG eCW1 ([facility]) 5-325 mg 07/10/2020 12:00:00 AM EST tablet 5 TAKE ONE TABLET BY MOUTH EVERY 6 HOURS NEEDED , MAXIMUM DAILY DOSE = 4 TABLETS TAKE ONE TABLET BY MOUTH EVERY 6 HOURS NEEDED , MAXIMUM DAILY DOSE = 4 TABLETS SOLD: 07/10/2020 [facility] Acetaminophen 325 MG / Oxycodone Hydroch loride 5 MG Oral Tablet Oxycodone- Acetaminophen 5-325 MG Oxycodone-Acetaminophen 5-325 MG 07/10/2020 12:00:00 A M EST 1.0 {tablet_as_needed} active O xycodone-Acetaminophen 5-325 MG eCW1 ([facility]) Acetaminophen 325 MG / Oxycodone Hydroch loride 5 MG Oral Tablet Oxycodone- Acetaminophen 5-325 MG Oxycodone-Acetaminophen 5-325 MG 07/10/2020 12:00:00 A M EST 1.0 {tablet_as_needed} active O xycodone-Acetaminophen 5-325 MG eCW1 ([facility]) tramadol hydrochloride 50 MG Oral Tablet [...] MOUTH EVERY DAY AT BEDTIME SOLD: 06/09/2020 [facility] 113-14 mcg/actuation 05/30/2020 12:00:00 AM EST aerosol powdr breath activated 1 INHALE ONE PUFF BY MOUTH TWICE A DAY INHA LE ONE PUFF BY MOUTH TWICE A DAY SOLD: 06/01/2020 [facility] benzonatate 100 MG Oral Capsule [Tessalon Perles] Sophia qasim Perles 100 MG Tessalon Perles 100 MG 05/30/2020 12:00:00 AM EST 1.0 {capsule_as_nee ded} active Tessalon Perles 100 MG eCW1 ([facility]) meloxicam 7.5 MG Oral Tablet Meloxicam 7.5 MG Meloxicam 7.5 MG 05/30/2020 12:00:00 AM EST 1.0 {tablet} suspended Meloxicam 7.5 MG eCW1 ([facility]) 113-14 mcg/actuation 05/30/2020 12:00:00 AM EST aerosol powdr breath activated 1 INHALE ONE PUFF BY MOUTH TWICE A DAY INHA LE ONE PUFF BY MOUTH TWICE A DAY SOLD: 07/06/2020 [facility] benzonatate 100 MG Oral Capsule [Tessalon Perles] Sophia qasim Perles 100 MG Tessalon Perles 100 MG 05/30/2020 12:00:00 AM EST 1.0 {capsule_as_nee ded} suspended Tessalon Perles 100 MG eCW1 ([facility]) meloxicam 7.5 MG Oral Tablet Meloxicam 7.5 MG Meloxicam 7.5 MG 05/30/2020 12:00:00 AM EST 1.0 {tablet} suspended Meloxicam 7.5 MG eCW1 ([facility]) benzonatate 100 MG Oral Capsule [Tessalon Perles] Sophia qasim Perles 100 MG Tessalon Perles 100 MG 05/30/2020 12:00:00 AM EST 1.0 {capsule_as_nee ded} suspended Tessalon Perles 100 MG eCW1 ([facility]) benzonatate 100 MG Oral Capsule BENZONATATE [...] ded} suspended Tessalon Perles 100 MG eCW1 ([facility]) 113-14 mcg/actuation 05/30/2020 12:00:00 AM EST aerosol powdr breath activated 1 INHALE ONE PUFF BY MOUTH TWICE A DAY INHA LE ONE PUFF BY MOUTH TWICE A DAY SOLD: 10/25/2020 [facility] meloxicam 7.5 MG Oral Tablet Meloxicam 7.5 MG Meloxicam 7.5 MG 05/30/2020 12:00:00 AM EST 1.0 {tablet} suspended Meloxicam 7.5 MG eCW1 ([facility]) benzonatate 100 MG Oral Capsule [Tessalon Perles] Sophia qasim Perles 100 MG Tessalon Perles 100 MG 05/30/2020 12:00:00 AM EST 1.0 {capsule_as_nee ded} suspended Tessalon Perles 100 MG eCW1 ([facility]) meloxicam 7.5 MG Oral Tablet Meloxicam 7.5 MG Meloxicam 7.5 MG 05/30/2020 12:00:00 AM EST 1.0 {tablet} suspended Meloxicam 7.5 MG eCW1 ([facility]) meloxicam 7.5 MG Oral Tablet Meloxicam 7.5 MG Meloxicam 7.5 MG 05/30/2020 12:00:00 AM EST 1.0 {tablet} suspended Meloxicam 7.5 MG eCW1 ([facility]) meloxicam 7.5 MG Oral Tablet Meloxicam 7.5 MG Meloxicam 7.5 MG 05/30/2020 12:00:00 AM EST 1.0 {tablet} suspended Meloxicam 7.5 MG eCW1 ([facility]) benzonatate 100 MG Oral Capsule [Tessalon Perles] Sophia qasim Perles 100 MG Tessalon Perles 100 MG 05/30/2020 12:00:00 AM EST 1.0 {capsule_as_nee ded} suspended Tessalon Perles 100 MG eCW1 ([facility]) 113-14 mcg/actuation 05/30/2020 12:00:00 AM EST aerosol powdr breath activated 1 INHALE ONE PUFF BY MOUTH TWICE A DAY INHA LE ONE PUFF BY MOUTH TWICE A DAY SOLD: 08/13/2020 [facility] benzonatate 100 MG Oral Capsule [Tessalon Perles] Sophia qasim Perles 100 MG Tessalon Perles 100 MG 05/30/2020 12:00:00 AM EST 1.0 {capsule_as_nee ded} suspended Tessalon Perles 100 MG eCW1 ([facility]) benzonatate 100 MG Oral Capsule [Tessalon Perles] Sophia qasim Perles 100 MG Tessalon Perles 100 MG 05/30/2020 12:00:00 AM EST 1.0 {capsule_as_nee ded} suspended Tessalon Perles 100 MG eCW1 ([facility]) meloxicam 7.5 MG Oral Tablet Meloxicam 7.5 MG Meloxicam 7.5 MG 05/30/2020 12:00:00 AM EST 1.0 {tablet} suspended Meloxicam 7.5 MG eCW1 ([facility]) meloxicam 7.5 MG Oral Tablet Meloxicam 7.5 MG Meloxicam 7.5 MG 05/30/2020 12:00:00 AM EST 1.0 {tablet} active Me loxicam 7.5 MG eCW1 ([facility]) atorvastatin 20 MG Oral Tablet Atorvastatin Calcium 20 MG Atorvastatin Calcium 20 MG 05/14/2020 12:00:00 AM EDT 1.0 {tablet} activ e Atorvastatin Calcium 20 MG eCW1 ([facility]) atorvastatin 20 MG Oral Tablet ATORVASTATIN CALCIUM 05/14/2020 1 2:00:00 AM EDT tablet 30 TAKE ONE TABLET BY MOUTH EVERY D AY TAKE ONE TABLET BY MOUTH EVERY DAY SOLD: 05/17/2020 [facility] atorvastatin 20 MG Oral Tablet Atorvastatin Calcium 20 MG Atorvastatin Calcium 20 MG 05/14/2020 12:00:00 AM EDT 1.0 {tablet} suspe nded Atorvastatin Calcium 20 MG eCW1 ([facility]) atorvastatin 20 MG Oral Tablet Atorvastatin Calcium 20 MG Atorvastatin Calcium 20 MG 05/14/2020 12:00:00 AM EDT 1.0 {tablet} suspe nded Atorvastatin Calcium 20 MG eCW1 ([facility]) atorvastatin 20 MG Oral Tablet Atorvastatin Calcium 20 MG Atorvastatin Calcium 20 MG 05/14/2020 12:00:00 AM EDT 1.0 {tablet} suspe nded Atorvastatin Calcium 20 MG eCW1 ([facility]) atorvastatin 20 MG Oral Tablet Atorvastatin Calcium 20 MG Atorvastatin Calcium 20 MG 05/14/2020 12:00:00 AM EDT 1.0 {tablet} suspe nded Atorvastatin Calcium 20 MG eCW1 ([facility]) atorvastatin 20 MG Oral Tablet Atorvastatin Calcium 20 MG Atorvastatin Calcium 20 MG 05/14/2020 12:00:00 AM EDT 1.0 {tablet} suspe nded Atorvastatin Calcium 20 MG eCW1 ([facility]) atorvastatin 20 MG Oral Tablet Atorvastatin Calcium 20 MG Atorvastatin Calcium 20 MG 05/14/2020 12:00:00 AM EDT 1.0 {tablet} suspe nded Atorvastatin Calcium 20 MG eCW1 ([facility]) atorvastatin 20 MG Oral Tablet Atorvastatin Calcium 20 MG Atorvastatin Calcium 20 MG 05/14/2020 12:00:00 AM EDT 1.0 {tablet} activ e Atorvastatin Calcium 20 MG eCW1 ([facility]) atorvastatin 20 MG Oral Tablet Atorvastatin Calcium 20 MG Atorvastatin Calcium 20 MG 05/14/2020 12:00:00 AM EDT 1.0 {tablet} suspe nded Atorvastatin Calcium 20 MG eCW1 ([facility]) atorvastatin 20 MG Oral Tablet Atorvastatin Calcium 20 MG Atorvastatin Calcium 20 MG 05/14/2020 12:00:00 AM EDT 1.0 {tablet} activ e Atorvastatin Calcium 20 MG eCW1 ([facility]) 40 mg 05/10/2020 12:00:00 AM EDT [...] DAY NEEDED FOR ANXIETY SOLD: 04/26/2020 [facility] 20 mg 04/26/2020 12:00:00 AM EDT [...] relationship to dominguez Policy Dominguez Plan Information [facility] COMMUNITY PLAN [id number] SP [id number] [facility] Community Plan Commercial [id number] Self [id number] [facility]LY [facility] COMMUNITY PLAN MCDO [id number] SP [id number] [facility] I [id number] Self [id number] FORMERLY [facility] COMMUNITY PLAN MCDO [id number] SP [id number] [facility]) O [id number] S [id number] [facility]) O [id number] S [id number] MEDICAID [id number] SP [id number] [facility] PLAN [id number] 18 [id number] [facility]-Medicaid [id number] [facility]-Medicaid [id number] [facility]-Medicaid [id number] [facility]-Medicaid [id number] [facility] [id number] SP [id number] [facility]I-Medicaid [id number] ANSI-Medicaid [id number] ANSI-Medicaid [id number] ANSI-Medicaid [id number] ANSI-Medicaid [id number] ANSI-Medicaid [id number] ANSI-Medicaid [id number] ANSI-Medicaid [id number] ANSI-Medicaid [id number] ANSI-Medicaid [id number] FORMERLY [facility] COMMUNITY PLAN [facility] [id number] SP [id number] ANSI-Medicaid [id number] ANSI-Medicaid [id number] ANSI-Medicaid [id number] [facility] [id number] ANSI-Medicaid [id number] ANSI-Medicaid [id number] ANSI-Medicaid [id number] ANSI-Medicaid [id number] ANSI-Medicaid [id number] ANSI-Medicaid [id number] ANSI-Medicaid [id number] ANSI-Medicaid [id number] ANSI-Medicaid [id number] ANSI-Medicaid [id number] ANSI-Medicaid [id number] ANSI-Medicaid [id number] ANSI-Medicaid [id number] ANSI-Medicaid [id number] ANSI-Medicaid [id number] ANSI-Medicaid [id number] ANSI-Medicaid [id number] ANSI-Medicaid [id number] ANSI-Medicaid [id number] ANSI-Medicaid [id number] ANSI-Medicaid [id number] ANSI-Medicaid [id number] ANSI-Medicaid [id number] ANSI-Medicaid [id number] ANSI-Medicaid [id number] ANSI-Medicaid [id number] ANSI-Medicaid [id number] ANSI-Medicaid [id number] ANSI-Medicaid [id number] ANSI-Medicaid [id number] ANSI-Medicaid [id number] ANSI-Medicaid [id number] FORMERLY [facility] COMMUNITY PLAN [facility] [id number] ANSI-Medicaid [id number] ANSI-Medicaid [id number] [facility] [id number] [facility] [id number] ANSI-Medicaid [id number] ANSI-Medicaid [id number] ANSI-Medicaid [id number] ANSI-Medicaid [id number] ANSI-Medicaid [id number] ANSI-Medicaid [id number] ANSI-Medicaid [id number] ANSI-Medicaid [id number] ANSI-Medicaid [id number] ANSI-Medicaid [id number] [facility] COMMUNTY PLAN [id number] ANSI-Medicaid [id number] ANSI-Medicaid [id number] [facility] Communty Plan Medicaid [id number] Self [id number] MEDICAID [facility] [id number] HC COMMUNITY PLAN XIX [id number] 18 [id number] ANSI-Medicaid [id number] ANSI-Medicaid [id number] ANSI-Medicaid [id number] ANSI-Medicaid [id number] ANSI-Medicaid [id number] ANSI-Medicaid [id number] ANSI-Medicaid [id number] ANSI-Medicaid [id number] ANSI-Medicaid [id number] ANSI-Medicaid [id number] ANSI-Medicaid [id number] ANSI-Medicaid [id number] MEDICAID [id number] SP [id number] ANSI-Medicaid [id number] ANSI-Medicaid [id number] ANSI-Medicaid [id number] ANSI-Medicaid [id number] MEDICAID -O/P [id number] UN COMMUNITY PLAN [facility] [id number] SP [id number] [facility] [id number] SP [id number] [facility] [id number] SP [id number] [facility] [id number] SP [id number] [facility] [id number] SP [id number] SELF PAY ONLY [id number] SP [id number] [facility] [id number] SP [id number] SELF PAY ONLY [id number] SP [id number] Medicaid [facility] Part B [id number] Self [id number] [facility] [id number] S [id number] MEDICAID BETTY [id number] UN AMERICHOICE XIX -HMO [id number] MEDICAID -O/P EMERGENCY ROOM [id number] MEDICAID M [id number] S [id number] Medicaid [facility] [id number] Self [id number] MEDICAID [id number] SP [id number] FORMERLY [facility] [id number] SP [id number] [facility]) O [id number] S [id number] [facility] COMMUNITY PLAN [id number] 18 [id number] [facility] [id number] SP [id number] [facility]) O [id number] S [id number] [facility] [id number] S [id number] Problems, Conditions, and Diagnoses Code Display Name Description Problem Type Effective Dates Data Source(s) R05516 Personal history of other venous thrombo sis and embolism Personal history of other venous thrombosis and embolism Diagnosis 02/18/2021 02:36:00 PM EDT [facility] Z8541 Personal history of malignant neoplasm o f cervix uteri Personal history of malignant neoplasm of cervix uteri Diagnosis 02/18/2021 02:36:00 PM ED T [facility] 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 [facility] (current) use of anticoagulants Diagnosis 02/18/2021 02:36:00 PM EDT [facility] [id number] Nicotine dependence, cigarettes, uncompl icated Nicotine dependence, cigarettes, uncomplicated Diagnosis 02/18/2021 02:36:00 PM EDT [facility] I10 Essential (primary) hypertension Essential (primary) h ypertension Diagnosis 02/18/2021 02:36:00 PM EDT [facility] 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 Diagnosis 02/18/2021 02:36: 00 PM EDT [facility] X25509 Pain in right ankle and joints of right foot Pain in right ankle and joints of right foot Diagnosis 02/18/2021 02:36:00 PM EDT [facility] E06289 Unspecified asthma, uncomplicated Unspecified as thma, uncomplicated Diagnosis 02/17/2021 08:20:00 PM EDT [facility] J208 Acute bronchitis due to other specified organisms Acute bronchitis due to other specified organisms Diagnosis 02/17/2021 08:20:00 PM EDT [facility] R0600 Dyspnea, unspecified Dyspnea, unspecified Diagnosis 02/17/2021 08:20:00 PM EDT [facility] R1084 Generalized abdominal pain Generalized abdominal pain Diagnosis 02/10/2021 11:55:00 PM EDT [facility] Z6839 Body mass index [BMI] 39.0-39.9, adult B desi mass index [BMI] 39.0-39.9, adult Diagnosis 12/13/2020 04:26:00 PM EDT [facility] E669 Obesity, unspecified Obesity, unspecified Diagnosis 12/13/2020 04:26:00 PM EDT [facility] G8929 Other chronic pain Other chronic pain Diagnosis 04:26:00 PM EDT [facility] R1031 Right lower quadrant pain Right lower quadrant pain Di agnosis 12/13/2020 04:26:00 PM EDT [facility] Z86.711 [id number] Hx pulmonary embolism Problem 07/02/2020 12: 00:00 AM EST eCW1 ([facility]) F17.200 [id number] Smoker Problem 07/02/2020 12:00:00 AM ES T eCW1 ([facility]) Z79.01 [id number] Chronic anticoagulation Problem 07/02/2020 1 2:00:00 AM EST eCW1 ([facility]) J45.31 [id number] Mild persistent asthma with acute exac erbation Problem 05/30/2020 12:00:00 AM EST eCW1 ([facility]) E78.2 [id number] Hyperlipidemia, mixed Problem 05/14/2020 12: 00:00 AM EDT eCW1 ([facility]) Z86.718 [id number] H/O deep venous thrombosis Problem 0 12:00:00 AM EDT eCW1 ([facility]) Surgeries/Procedures Procedure Description Date Indications Data Source(s) Evaluation AND/OR management - established patient (procedur e) 03/12/2021 12:00:00 AM EDT [facility] Individual psychotherapy (regime/therapy) 03/03/2021 1 2:00:00 AM EDT [facility] ([facility]) Evaluation AND/OR management - established patient (procedur e) 01/14/2021 12:00:00 AM EDT [facility]) Individual psychotherapy (regime/therapy) 01/02/2021 1 2:00:00 AM EDT [facility] ([facility]) Individual psychotherapy (regime/therapy) 01/02/2021 1 2:00:00 AM [facility]) Individual psychotherapy (regime/therapy) 12/03/2020 1 2:00:00 AM EDT [facility] ([facility]) Individual psychotherapy (regime/therapy) 12/03/2020 1 2:00:00 AM EDT [facility] ([facility]) Individual psychotherapy (regime/therapy) 11/18/2020 1 2:00:00 AM EDT [facility] ([facility]) Individual psychotherapy (regime/therapy) 11/18/2020 1 2:00:00 AM EDT [facility] ([facility]) Individual psychotherapy (regime/therapy) 11/18/2020 1 2:00:00 AM EDT [facility] ([facility]) Evaluation AND/OR management - established patient (procedur e) 11/13/2020 12:00:00 AM EDT [facility]) Evaluation AND/OR management - established patient (procedur e) 11/13/2020 12:00:00 AM EDT [facility] ([facility]) Evaluation AND/OR management - established patient (procedur e) 11/13/2020 12:00:00 AM EDT [facility]) Evaluation AND/OR management - established patient (procedur e) 10/16/2020 12:00:00 AM EDT [facility]) Evaluation AND/OR management - established patient (procedur e) 10/16/2020 12:00:00 AM EDT [facility] ([facility]) Evaluation AND/OR management - established patient (procedur e) 10/16/2020 12:00:00 AM EDT [facility]) Individual psychotherapy (regime/therapy) 10/10/2020 1 2:00:00 AM EDT [facility] ([facility]) Individual psychotherapy (regime/therapy) 10/10/2020 1 2:00:00 AM EDT [facility] ([facility]) Individual psychotherapy (regime/therapy) 10/10/2020 1 2:00:00 AM EDT [facility] ([facility]) Individual psychotherapy (regime/therapy) 09/24/2020 1 2:00:00 AM EST [facility] ([facility]) Individual psychotherapy (regime/therapy) 09/24/2020 1 2:00:00 AM EST [facility] ([facility]) Individual psychotherapy (regime/therapy) 09/24/2020 1 2:00:00 AM EST [facility] ([facility]) Evaluation AND/OR management - established patient (procedur e) 09/16/2020 12:00:00 AM EST [facility] ([facility]) Evaluation AND/OR management - established patient (procedur e) 09/16/2020 12:00:00 AM EST [employer] ([facility]) Evaluation AND/OR management - established patient (procedur e) 09/16/2020 12:00:00 AM EST [employer] ([facility]) Individual psychotherapy (regime/therapy) 09/03/2020 1 2:00:00 AM EST [employer] ([facility]) Individual psychotherapy (regime/therapy) 09/03/2020 1 2:00:00 AM EST [employer] ([facility]) Individual psychotherapy (regime/therapy) 09/03/2020 1 2:00:00 AM EST [employer] ([facility]) Evaluation AND/OR management - established patient (procedur e) 08/29/2020 12:00:00 AM EST [employer] ([facility]) Evaluation AND/OR management - established patient (procedur e) 08/29/2020 12:00:00 AM EST [employer] ([facility]) Evaluation AND/OR management - established patient (procedur e) 08/29/2020 12:00:00 [facility] ECG ROUTINE ECG W/LEAST 12 LDS W/I&R 07/05/2020 12:00: 00 AM EST eCW1 ([facility]) Evaluation AND/OR management - established patient (procedur e) 06/05/2020 12:00:00 AM EST [employer] ([facility]) Evaluation AND/OR management - established patient (procedur e) 06/05/2020 12:00:00 AM EST [employer] ([facility]) Evaluation AND/OR management - established patient (procedur e) 06/05/2020 12:00:00 AM EST [employer] ([facility]) Evaluation AND/OR management - established patient (procedur e) 04/25/2020 12:00:00 AM EDT [employer] ([facility] Evaluation AND/OR management - established patient (procedur e) 04/25/2020 12:00:00 AM EDT [employer] ([facility]) Evaluation AND/OR management - established patient (procedur e) 04/25/2020 12:00:00 AM EDT [employer] ([facility]) Results ID Date Data Source CHLAMYDIA & GC DNA AMPLIFICAT 04/07/2021 12:00:00 AM EDT eCW 1 ([facility]) Name Value Range Interpretation Code Description Data Rhonda rce(s) Supporting Document(s) Chlamydia trachomatis rRNA [Presence] in Unspecified specimen by Probe and target amplification method NEGATIVE NEGATIVE CHLAMYDIA DNA AMPLIFICATION eCW1 ([facility]) ID Date Data Source [id number] 02/20/2021 10:04:00 [place] [address] PHONE: [phone] FAX: [phone] Name .................. : HANANE El Acct Number.................. : [id number] ROOM. ................. : TR-08 MR Number ................... : [id number] Stay type ............. : E/R Discharge Date......... ... : 02/18/21 Admit Date ......... : 02/18/21 Admit Phys .................... : SUDHA Denis Date of ....... : 1980 Family Phys ................... : MARA Phone .................. : [phone] Age ................................ : 41 Film# .................. .:[id number] Sex ................................. : F Unsigned transcriptions are preliminary reports and do not represent a medical or legal document [place] [id number] COMPLETE:02/18/21 16:30 KNB [id number] Reason(s): Lower Extremity Tingling RIGHT LOWER EXTREMITY [...] ROSI FALL MD , 02/20/21 10:04, [facility] Transcribe Initials: JB , Transcribe Date: 02/18/21 17:48, Dictation Date: Copy for: MARA SIMMS via fax Copy for: EMERGENCY DEPT via astatul[employer] Copy for: 710 MED REC DISCHARGED Page 1 of 1 Name Value Range Interpretation Code Description Data Rhonda rce(s) Supporting Document(s) ID Date Data Source [id number] 02/18/2021 02:36:00 PM EDT [facility] 1 OrderSheet [facility] Emergency Department [address] [place] [address] Phone #: ext- [phone] 02/18/2021 14:35 Patient: [...] rce(s) Supporting Document(s) ID Date Data Source [id number] 02/18/2021 02:36:00 PM EDT [facility] 1 Medication Reconciliation Report [facility] Emergency Department [address] [place] [address] Phone #: ext- [phone] 02/18/2021 14:35 Patient: [...] Name Value Range Interpretation Code Description Data [facility] Supporting Document(s) ID Date Data Source [id number] 02/18/2021 02:36:00 PM EDT [facility] 1 Medication Administration Record [facility] Emergency Department [address] [place] [address] Phone #: ext- [phone] 02/18/2021 14:35 Patient: ELGIN KOO Sex: F : 1980 Age: 41yWeight: 104.3 kgHeight/Length: 65 inBMI: 38.3ALLERGIES: KOSTA Inhibitors, Acetaminophen, Cephalosporins, Motrin, Penicillins, SudafedDate/Time Medication Administered Medication Ordered Name Value Range Interpretation Code Description Data Rhonda rce(s) Supporting Document(s) ID Date Data Source [id number] 02/18/2021 02:36:00 PM EDT [facility] 1 General Instructions [facility] Emergency Department [address] [place] [address] Phone #: ext- [phone] 02/18/2021 14:35 Patient: ELGIN KOO Sex: F : 1980 Age: 41yChronic venous insufficiency of the right lower extremity with varicose veins and pain.INSTRUCTIONS(Try Compression stockings available at [employer] or [employer] [place]).Warnings: Further evaluation is necessary. It is very [...] chances of heart attack 2 General Instructions [facility] Emergency Department [address] [place] [address] Phone #: ext- [phone] 02/18/2021 14:35 Patient: [...] program or support group. 3 General Instructions [facility] Emergency Department [address] [place] [address] Phone #: ext- [phone] 02/18/2021 14:35 [id number] Sex: F : 1980 Age: 41y Be [...] more than a few 4 General Instructions [facility] Emergency Department [address] [place] [address] Phone #: ext- [phone] 02/18/2021 14:35 Patient: ELGIN KOO Sex: F [...] Sudden, severe headache with no known cause [id number] [employer] [place] [address]. All rights reserved. This information is not intended as asubstitute for professional medical care. Always follow your healthcare professional's instructions. You have been given the following additional information: Peripheral Artery Disease (PAD)(Electronically signed by MOSHE Lux 02/18/2021 22:29) Name Value Range Interpretation Code Description Data Rhonda rce(s) Supporting Document(s) ID Date Data Source [id number] 02/18/2021 02:36:00 PM EDT [facility] 1 Clinical Report - Nurses [facility] Emergency Department [address] [place] [address] Phone #: ext- [phone] 02/18/2021 14:35 Patient: ELGIN KOO Sex: F : 1980 Age: 41yTRIAGEArrived by EMS. Historian: patient. Unaccompanied. ( went to [facility] and told there is a 6 hour wait.drove back and called ambulance to come to [facility] for right lower leg blood clots, numbness paresthesia.).Triage time: 14:46 02/18/2021. Acuity: LEVEL 4.Chief Complaint: RIGHT LOWER EXTREMITY PAIN, NUMBNESS and TINGLING. Location ofsymptoms- right leg and right ankle.14:45 02/18/21. Alert. No acute distress.No injury occurred. 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 2 Clinical Report - Nurses [facility] Emergency Department [address] [place] [address], [place] [address] Phone #: ext- [phone] 02/18/2021 14:35 Patient: ELGIN KOO Sex: F [...] hysterectomy.Previous Abdominal Surgery. --14:49 02/18/21 Raul Marquez R.N.Vpfxttf69:45 02/18/21.SOCIAL HX: Current every day light tobacco [...] no barriers. 3 Clinical Report - Nurses [facility] Emergency Department [address] [place] [address] Phone #: ext- [phone] 02/18/2021 14:35 Patient: [id number] Sex: F : 1980 Age: 41y FALL RISK ASSESSMENT: Fall risk assessment completed. No risk factors identified. SKIN INTEGRITY ASSESSMENT: Skin integrity risk assessment completed. No skin integrity risk identified. --14:51 02/18/21 Raul Marquez R.N. Assessment 14:45 02/18/21. She states feels the same. --14:51 02/18/21 Raul Marquez R.N. Interventions 14:45 02/18/21. Identification band on patient. To treatment room. --14:51 02/18/21 Raul Maqruez R.N.PHYSICAL [id number] 02/18/21. Ambulatory to room.GENERAL / NEURO / [...] F. Pain level now 0/10. --16:11 02/18/21 [facility] Maximo Fan ER Tech1 16:07 02/18/21. Condition at departure: improved and stable. The goals identified in the patient's plan of care were met. Fall risk assessment completed. No risk factors identified. No learning barriers present. Discharge instructions provided and reviewed with the patient. Reviewed warnings. Reviewed medication(s). Treatments reviewed. Reviewed referral to a primary care physician. Patient verbalized understanding. Written instructions provided in [place]. The patient was discharged by the physician financial sales assistant. She was discharged home. She left ambulatory and via taxi. --16:12 02/18/21 Raul Marquez R.N. 4 Clinical Report - Nurses [facility] Emergency Department [address] [place] [address] Phone #: ext- [phone] 02/18/2021 14:35 [facility]: [id number] Sex: F : 1980 Age: 41yLocked/Released at 02/18/2021 18:47 by Raul Marquez R.N. Name Value Range Interpretation Code Description Data Rhonda rce(s) Supporting Document(s) ID Date Data Source [id number] 02/18/2021 02:36:00 PM EDT [facility] 1 Clinical Report - Physicians/Mid Levels [facility] Emergency Department [address] [place] [address] Phone #: ext- [phone] 02/18/2021 14:35 Patient: ELGIN KOO Sex: F : 1980 Age: 41y Time Seen: 14:50 02/18/2021. Arrived- By ambulance. Historian- patient and EMS personnel.HISTORY OF PRESENT ILLNESS Chief Complaint: LOWER EXTREMITY PAIN, SWELLING and ALTERED SENSATION and ; PAIN, SWELLING and ALTERED SENSATION IN THE RIGHT ANKLE and RIGHT FOOT. This started today and is still present (went to [facility] and told there is a 6 hour wait. drove back and called ambulance to come to [facility] for right lower leg blood clots, [...] hysterectomy. 2 Clinical Report - Physicians/Mid Levels [facility] Emergency Department [address] [place] [address] Phone #: ext- [phone] 02/18/2021 14:35 Patient: ELGIN KOO [facility]#: [id number] Sex: F : 1980 Age: 41y Previous [...] time: 15:59 02/18/2021.PROGRESS AND PROCEDURESCourse of Care: 16:Feb 18 2021. Evaluation after observation. (Discussed neg US and pt needs to 3 Clinical Report - Physicians/Mid Levels [facility] Emergency Department [address] [place] [address] Phone #: ext- [phone] 02/18/2021 14:35 Patient: [facility]OO [id number] Sex: F : 1980 Age: 41y follow [...] and pain.INSTRUCTIONS (Try Compression stockings available at [employer] or [employer] [place]). Warnings: Further evaluation is necessary. It is [...] rce(s) Supporting Document(s) ID Date Data Source [id number] 02/18/2021 01:22:00 PM EDT [facility] [address] [place] [address] PHONE: [phone] FAX: [phone] Name .................. : HANANE El Acct Number.................. : [id number] ROOM. ................. : TR-03 MR Number ................... : [id number] Stay type ............. : E/R Discharge Date......... ... : 02/17/21 Admit Date ......... : 02/17/21 Admit Phys .................... : JAYCE YE Date of ....... : 1980 Family Phys ................... : [employer] ([employer]) Phone .................. : [phone] Age ................................ : 41 Film# .................. .:[id number] Sex ................................. : F Unsigned transcriptions are preliminary reports and do not represent a medical or legal document CHEST 2 VIEWS [id number] COMPLETE:02/17/21 21:29 MWB [id number] Reason(s): Cough FRONTAL AND LATERAL CHEST, 02/17/21: [...] rce(s) Supporting Document(s) ID Date Data Source [id number] 02/17/2021 08:20:00 PM EDT [facility] 1 OrderSheet [facility] Emergency Department [address] [place] [address] Phone #: ext- [phone] 02/17/2021 20:18 Patient: ELGIN KOO Sex: F : 1980 Age: 41yWEIGHT:104.3 kg HEIGHT:65 inches BMI:38.3ALLERGIES: KOSTA Inhibitors, Acetaminophen, Cephalosporins, Motrin, Penicillins, SudafedCHIEF COMPLAINT: dyspneaDIAGNOSIS: BronchitisLAB ORDERSOrder Description Priority Entered Acknowledged Init ialedUrinalysis (Clean STAT 20:51 02/17/2021 20:53 Minoo MESA; Reason for ordering with alerts: Clinical consideration given -- 20:51 02/17/2021 Mateusz De La Garza PARapid Strep Screen STAT 20:51 02/17/2021 20:53 Leo MESA; Reason for ordering with alerts: Clinical consideration [...] consideration given -- 20:51 02/17/2021 2 OrderSheet [facility] Emergency Department [address] [place] [address] Phone #: ext- [phone] 02/17/2021 20:18 Patient: ELGIN KOO Sex: F : 1980 Age: 41y Mateusz De La Garza PADuoNeb 3 mL X2 20:51 02/17/2021 21:04 PeterDoses (Filtered): 6 Mateusz Tavarez RNmL (3 mL X2 PA;Doses) Reason for ordering with alerts: Clinical consideration given -- 20:51 02/17/2021 Mateusz De La Garza PAPromethazine w 21:48 02/17/2021 Cancelled: Unavailable/Mat/Equip 21:54Codeine PO 10 mL Mateusz De La Garza PA PA;Azithromycin PO 21:49 02/17/2021 21:58 Claritza Amezquita500 mg X1 Dose: Mateusz De La Garza R.N.500 mg (NOW x1) MOSHE;Morphine IVP 4 mg 21:54 02/17/2021 Cancelled: Physician Order 21:55 Mateusz(HIGH ALERT Mateusz De La Garza PAMEDICATION) MOSHE;traMADol PO 100 21:55 02/17/2021 21:58 Claritza Amezquitamg Mateusz MESA;GENERAL ORDERSOrder Description Priority Entered Acknowledged Initialed[Electronically signed by Mateusz De La Garza (22:08 02/17/2021)][Electronically signed by Claritza Amezqiuta R.N. (22:11 02/17/2021)][Electronically locked by Claritza Amezquita R.N. (22:11 02/17/2021)] Name Value Range Interpretation Code Description Data Rhonda rce(s) Supporting Document(s) ID Date Data Source [id number] 02/17/2021 08:20:00 PM EDT [facility] 1 Medication Reconciliation Report [facility] Emergency Department [address] [place] [address] Phone #: ext- [phone] 02/17/2021 20:18 [...] Neb TX 2 unit dose, administered: 21:04 02/17/2021zithromycin [PO] PO 500 mg, administered: 21:57 02/17/2021Tramadol [PO] PO 100 mg, administered: 21:58 02/17/2021The following Medications were prescribed to the patient:Medrol (Jevon) 4 mg tablets in a dose pack Take 1 tablet as directed for 6 days -- Dispense 1 pack.Refills: 0. Substitution permitted.[facility] - [address] [place] [address]. FaxNumber: [phone]. 2 Medication Reconciliation Report [facility] Emergency Department [address] [place] [address] Phone #: ext- [phone] 02/17/2021 20:18 Patient: ELGIN KOO Sex: F : 1980 Age: 41yazithromycin 250 mg tablet -- Take one tablet daily for 4 days, Dispense 4 tablet. Refills: 0.Substitution permitted.[facility] - [address] ; [place] [address]. FaxNumber: .albuterol sulfate HFA 90 mcg/actuation aerosol inhaler Inhale 2 puff four times a day -- Dispense 8.5gram. Refills: 0. Substitution permitted.[facility] - [address] ; [place] [address]. FaxNumber: . -- MOSHE Lux Name Value Range Interpretation Code Description Data Rhonda rce(s) Supporting Document(s) ID Date Data Source [id number] 02/17/2021 08:20:00 PM EDT [facility] 1 Medication Administration Record [facility] Emergency Department [address] [place] [address] Phone #: ext- [phone] 02/17/2021 20:18 Patient: ELGIN KOO Sex: F : 1980 Age: 41yWeight: 104.3 kgHeight/Length: 65 inBMI: 38.3ALLERGIES: KOSTA Inhibitors, Acetaminophen, Cephalosporins, Motrin, Penicillins, Sudafed Date/Time Medication Administered Medication OrderedStart NS [IV] NS IV 1000 mL Bolus: : Bolus [id number] 02/17/2021 Dose: IV Fluids mL (X1)Leo Tavarez RN Rate: 1000 mL/hr over 1 hour(s)---- Dispensed: 1000 mL bagStop Site: #1 right AC22:06 02/17/2021Claritza Amezquita, R.NAshleyGiven SOLU-MEDROL [IVP] SOLU-Medrol 125 mg IV X1 [...] mg Tablets PO 500 mg (NOW x1)Claritza Amezquita, R.N.Given TRAMADOL [PO] traMADol PO 100 mg21:58 02/17/2021 Dose: 100 mg Tablets Claritza Bingham R.N. Name Value Range Interpretation Code Description Data Rhonda e(s) Supporting Document(s) ID Date Data Source [id number] 02/17/2021 08:20:00 PM EDT [facility] 1 General Instructions [facility] Emergency Department [address] [place] [address] Phone #: ext- [phone] 02/17/2021 20:18 Patient: ELGIN KOO Sex: F [...] days -- Dispense 1 pack.Refills: 0. Substitution permitted.[facility] - [address] ; [place] [address]. FaxNumber: .azithromycin 250 mg tablet -- Take one tablet daily for 4 days, Dispense 4 tablet. Refills: 0.Substitution permitted.[facility] - [address] ; [place] [address]. FaxNumber: .albuterol sulfate HFA 90 mcg/actuation aerosol inhaler Inhale 2 puff four times a day -- Dispense 8.5gram. Refills: 0. Substitution permitted.Pharmacy - [facility] - [address] ; [place] [address]. FaxNumber: .Follow-up:Follow up with your doctor in two days. Call for the next available appointment. Reason for referral:evaluation and treatment. Summary of care provided to patient. 2 General Instructions [facility] Emergency Department [address] [place] [address] Phone #: ext- [phone] 02/17/2021 20:18 Patient: [...] istreated with an antibiotic. 3 General Instructions [facility] Emergency Department [address] [place] [address] Phone #: hrk- [phone] 02/17/2021 20:18 [facility]: [id number] Sex: F : 1980 Age: 41yHome careFollow these guidelines when caring for yourself at home: If your symptoms are severe, rest at home for the first 2 to 3 days. When you go back to your usual activities, don't let yourself get too tired. Don't smoke. Also stay away from secondhand smoke. You may use noqn-ndw-qwjhrsp medicines to control fever or pain, unless [...] loosen mucus in your nose and lungs. Baoh-glp-ddxoymi cough, cold, and sore-throat medicines will not [...] or a stiff neck 4 General Instructions [facility] Emergency Department [address] [place] [address] Phone #: ext- [phone] 02/17/2021 20:18 Patient: ELGIN KOO Sex: F : 1980 Age: 41yCall 911Call 911 if any of these occur. Coughing up blood Weakness, drowsiness, headache, or stiff neck that get worse Trouble breathing, wheezing, or pain with breathing [id number] [employer]. [address] [place] [address]. All rights reserved. This information is not intended as asubstitute for professional medical care. Always follow your healthcare professional's instructions. You have been given the following additional information: Bronchitis, Antibiotic Treatment (Adult)(Electronically signed by MOSHE Lux 02/17/2021 22:08) Name Value Range Interpretation Code Description Data Rhonda rce(s) Supporting Document(s) ID Date Data Source [id number] 02/17/2021 08:20:00 PM EDT [facility] 1 Clinical Report - Nurses [facility] Emergency Department [address] [place] [address] Phone #: ext- [phone] 02/17/2021 20:18 Patient: ELGIN KOO Sex: F [...] and ibuprofen. States she was just at 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 --20:22 02/17/21 Johnny Powern20:19 02/17/21. BP: 117/64. HR: 87. RR: 14. O2 saturation: 98%. Temp: 99.3 F. Pain level now 01/02.--20:22 02/17/21 Shanell Poweruity: LEVEL 3.Alert. No acute [...] Power.PROBLEMS:Back Pain. 2 Clinical Report - Nurses [facility] Emergency Department [address] [place] [address], [place] [address] Phone #: ext- [phone] 02/17/2021 20:18 [facility]: [id number] Sex: F : 1980 Age: 41ySeizure Disorder: (Stress induced).DVT - Deep Venous Thrombosis.Anxiety Reaction.Hypertension.Fibromyalgia.Other Disease.PTSD.Schizophrenia.Myofascial Strain. --20:02/17/21 Elo Power.ADDITIONAL SURGERIES:CERVICAL CANCER.C- Section.Dental Surgery.[place] filter.Partial hysterectomy.Previous Abdominal Surgery. --20:02/17/21 Elo Power.HistoryPAST [...] factors identified. 3 Clinical Report - Nurses [facility] Emergency Department [address] [place] [address] Phone #: ext- [phone] 02/17/2021 20:18 -- Patient: ELGIN KOO [facility]#: [id number] Sex: F : 1980 Age: 41y SKIN INTEGRITY ASSESSMENT: Skin integrity risk assessment completed. No skin integrity risk identified. --20:02/17/21 Elo Power. Interventions Identification band on patient. [...] Saline lock flushed with 10 mL saline. --20:02/17/21 Leo Tavarez RN ( pt does have a dry hacking cough along with redness to her posterior throat). --20:42 02/17/21 Leo Tavarez RN 20:56 02/17/21. Patient ID band checked for patient name and birthdate: patient confirmed. Throat swab obtained by MOSHE for rapid strep; labeled in the presence [...] by RN. 4 Clinical Report - Nurses [facility] Emergency Department [address] [place] [address] Phone #: ext- [phone] 02/17/2021 20:18 Patient: ELGIN KOO Sex: F : 1980 Age: 41y Information reviewed with patient including reason for taking this medication. Verbalizes understanding. --20:59 02/17/21 Leo Tavarez RN 21:02/17/2021 Duoneb Neb TX Nebulizer 2 unit dose given. Given by the nurse. Allergies verified and confirmed 5 rights. Information reviewed with patient including reason for taking this medication. Verbalizes understanding. --21:02/17/21 Leo Tavarez RN 21:02/17/21. BP: 100/70. MAP: 80. HR: 82. RR: [...] bandaid applied. --22:08 02/17/21 Claritza Amezquita R.N. [place] Coma Scale: 15- eyes open- spontaneous (4); [...] The patient was discharged by the physician financial sales assistant. She was discharged home and accompanied by chaser apprentice. She left via private vehicle. Faceter driving. ( PT instructed not to drive [...] Amezquita R.N. 5 Clinical Report - Nurses [facility] Emergency Department [address] [place] [address] Phone #: ext- [phone] 02/17/2021 20:18 Patient: ELGIN KOO Sex: F : 1980 Age: 41y Name Value Range Interpretation Code Description Data Rhonda rce(s) Supporting Document(s) ID Date Data Source [id number] 02/17/2021 08:20:00 PM EDT [facility] 1 Clinical Report - Physicians/Mid Levels [facility] Emergency Department [address] [place] [address] Phone #: ext- [phone] 02/17/2021 20:18 Patient: [...] and ibuprofen. States she was just at [facility] but didn't want to wait). Is still [...] Roast Beef Sub on the wayhere from [facility]). The vomiting has occurred twice.PAST HISTORYProblems:Back Pain.Seizure Disorder. (Stress induced)DVT - Deep Venous Thrombosis.Hypertension.Fibromyalgia.Other Disease.Myofascial Strain. Additional Surgeries: CERVICAL CANCER. . Dental Surgery. Ays[place] filter. Partial hysterectomy. Previous Abdominal Surgery. 2 Clinical Report - Physicians/Mid Levels [facility] Emergency Department [address] [place] [address] Phone #: ext- [phone] 02/17/2021 20:18 Patient: ELGIN KOO Sex: F [...] Clear 3 Clinical Report - Physicians/Mid Levels [facility] Emergency Department [address] [place] [address] Phone #: ext- [phone] 02/17/2021 20:18 Patient: ELGIN KOO Sex: F [...] Rapid Strep Screen: (JULI: 02/17/2021 20:50) ( DcgRcvd 02/17/2021 21:07) Final results Test Result Flag Units (Reference) RAPID STREP NEGATIVE (NORMAL: NEGAT RAPID STREP REENTER NEGATIVE (NORMAL: NEGAT { PROCEDURAL CONTROL VALID ){ KIT LOT # [id number] ){ KIT EXP DATE 06/07/21 )The Strep [...] Chest 2 View: (JULI: 02/17/2021 20:51) ( DcgRcvd 21:29) In Progress CHEST 2 VIEWS Reason(s): [...] asthma. 4 Clinical Report - Physicians/Mid Levels [facility] Emergency Department [address] [place] [address] Phone #: ext- [phone] 02/17/2021 20:18 Patient: ELGIN KOO Sex: F [...] Dispense 1 pack. Refills: 0. Substitution permitted. [facility] [address] [place] [address]. . azithromycin 250 mg tablet -- Take one tablet daily for 4 days, Dispense 4 tablet. Refills: 0. Substitution permitted. [facility] [address] [place] [address]. . albuterol sulfate HFA 90 mcg/actuation aerosol inhaler Inhale 2 puff four times a day -- Dispense 8.5 gram. Refills: 0. Substitution permitted. [facility] - [address] [facility] ; [place] [address]. . Follow-up: Follow up with your doctor in two days. Call for the next available appointment. Reason for referral: evaluation and treatment. Summary of care provided to patient. Understanding of the discharge instructions verbalized by patient.(Electronically signed by MOSHE Lux 02/17/2021 22:08) 5Clinical Report - Physicians/Mid Levels [facility] Emergency Department [address] [place] [address] Phone #: ext- [phone] 02/17/2021 20:18 Patient: ELGIN KOO Sex: F : 1980 Age: 41y Name Value Range Interpretation Code Description Data Rhonda rce(s) Supporting Document(s) ID Date Data Source [id number] 02/17/2021 09:13:00 PM EDT [facility] Name Value Range Interpretation Code Description Data [facility] rce(s) Supporting Document(s) [facility] SOURCE R [facility] COLOR yellow NORMAL: Yellow [facility] CLARITY clear NORMAL: Clear [facility] Specific gravity of Urine by Test strip 1.015 1.001 - 1.030 [facility] pH 6 5 - 9 [facility] Glucose [Mass/volume] in Urine by Test strip NORM NORMAL: Negat [facility] Bilirubin.total [Presence] in Urine by Test strip NEG NORMAL: Negative [facility] Ketones [Presence] in Urine by Test strip NEG NORMAL: Negative [facility] Protein [Mass/volume] in Urine by Test strip NEG NORMAL: Negat ash [facility] Nitrite [Presence] in Urine by Test strip NEG NORMAL: Negative [facility] BLOOD 150 NORMAL: Negative A [facility] LEUK EST NEG NORMAL: Negative [facility] Urobilinogen [Mass/volume] in Urine by Test strip NOR less emily n 1.0 mg/dL [facility] MICROSCOPIC See Below [facility] ital WBC 1 - 3 NORMAL: NONE SEEN [facility] Erythrocytes [#/volume] in Urine by Test strip 0 - 1 NORMAL: NON E SEEN [facility] EPITHELIAL MANY NORMAL: NONE SEEN [facility] Amorphous sediment [Presence] in Urine sediment by Light madi roscopy RARE NORMAL: NONE SEEN [facility] ID Date Data Source [id number] 02/17/2021 09:05:00 PM EDT [facility] Name Value Range Interpretation Code Description Data Rhonda rce(s) Supporting Document(s) RAPID STREP NEGATIVE NORMAL: NEGATIVE [facility] RAPID STREP REENTER NEGATIVE NORMAL: NEGATIVE [facility] [place] [facility] { PROCEDURAL CONTROL VALID ){ KIT LOT # [id number] ){ KIT EXP DATE 06/07/21 )The Strep [...] basis for treatment. ID Date Data Source [id number] 02/10/2021 11:55:00 PM EDT [facility] 1 OrderSheet [facility] Emergency Department [address] [place] [address] Phone #: ext- [phone] 02/10/2021 23:55 Patient: ELGIN KOO Sex: F [...] 02/11/2021ontrast Only Linda Black MD; Raul Marquez(Oxygen?(No)) Fito(IV?(Yes)) NOTES: generalized Reason for Study: Abdominal PainMEDICATION/IV/DRIP/FLUID ORDERSOrder Description Priority Entered Acknowledged InitialedIV NS 1000 mL 23:57 02/10/2021 00:31 02/11/2021 2 OrderSheet [facility] Emergency Department [address] [place] [address] Phone #: ext- [phone] 02/10/2021 23:55 Patient: ELGIN KOO Sex: F : 1980 Age: 41yBolus : Bolus 1000 Linda Black MD; Catia Marquez (X1) FitoDuoNeb Neb Tx 3 00:00 02/11/2021 Cancelled: Physician Order 00:00mL (NOW x1) Linda Black MD; Linda Black MDCipro PO 500 mg 02:02/11/2021 02:35 Dominic Marquez Norma MD; Raul PaytonFlagyl PO 500 mg 02:02/11/2021 02:35 Dominci Marquez Norma MD; Raul PaytonGENERAL ORDERSOrder Description Priority Entered Acknowledged Initialed[Electronically signed by Linda Black MD (02:45 02/11/2021)][Electronically signed by Raul Marquez R.N. (03:02/11/2021)][Electronically locked by Raul Marquez R.N. (03:02/11/2021)] Name Value Range Interpretation Code Description Data Rhonda rce(s) Supporting Document(s) ID Date Data Source [id number] 02/10/2021 11:55:00 PM EDT [facility] 1 Medication Reconciliation Report [facility] Emergency Department [address] [place] [address] Phone #: ext- [phone] 02/10/2021 23:55 Patient: [...] -- Dispense 20 tablet. Refills: 0. Substitution permitted.[facility] [address] [place] [address]. FaxNumber: .Cipro 500 mg tablet Take 1 tablet twice a day as directed for 10 days -- Dispense 20 tablet. Refills: 0.Substitution permitted.[facility] # [address] [place] [address]. FaxNumber: . -- Linda Black MD 2 Medication Reconciliation Report [facility] Emergency Department [address] [place] [address] Phone #: ext- [phone] 02/10/2021 23:55 Patient: ELGIN KOO Sex: F : 1980 Age: 41y Name Value Range Interpretation Code Description Data Rhonda rce(s) Supporting Document(s) ID Date Data Source [id number] 02/10/2021 11:55:00 PM EDT [facility] 1 Medication Administration Record [facility] Emergency Department [address] [place] [address] Phone #: ext- [phone] 02/10/2021 23:55 Patient: ELGIN KOO Sex: F : 1980 Age: 41yWeight: 106.5 kgHeight/Length: 65 inBMI: 39.1ALLERGIES: KOSTA Inhibitors, Acetaminophen, Cephalosporins, Motrin, Penicillins, Sudafed Date/Time Medication Administered Medication OrderedStart NS [IV] IV NS 1000 mL Bolus : Bolus 587180:[id number] 02/11/2021 Dose: IV Fluids mL (X1)Raul Marquez, R.N. Rate: 1500 mL/hr over 40 minute(s)---- Dispensed: 1000 mL bagStop Site: #1 right AC01:28 02/11/2021Raul hernandez, R.N.Given CIPRO [PO] (CIPROFLOXACIN) Cipro PO 500 mg02:35 02/11/2021 Dose: 500 mg Tablets POSRaul hernandez, R.N.Given FLAGYL [PO] (METRONIDAZOLE) Flagyl PO 500 mg02:35 02/11/2021 Dose: 500 mg Tablets Raul Parnell, R.N. Name Value Range Interpretation Code Description Data Rhonda rce(s) Supporting Document(s) ID Date Data Source [id number] 02/10/2021 11:55:00 PM EDT [facility] 1 General Instructions [facility] Emergency Department [address] [place] [address] Phone #: ext- [phone] 02/10/2021 23:55 Patient: ELGIN KOO Sex: F [...] -- Dispense 20 tablet. Refills: 0. Substitution permitted.[facility] [address] [facility] ; [place] [address]. FaxNumber: .Cipro 500 mg tablet Take 1 tablet twice a day as directed for 10 days -- Dispense 20 tablet. Refills: 0.Substitution permitted.[facility] [address] - [address] [facility] ; [place] [address]. faxNumber: .Follow-up:Jamaal peñalow up with your doctor in two days even if well. Call for an appointment. Reason for referral: evaluation.Summary of care provided to patient via paper.Understanding of the discharge instructions verbalized.Follow-up with: [facility], , , [address] [place], [address] Follow up in two days even if well. Call for an appointment. Reason for referral: evaluation. Summary of 2 General Instructions [facility] Emergency Department [address] [place] [address] Phone #: ext- [phone] 02/10/2021 23:55 Patient: ELGIN KOO Sex: F [...] on how things go, 3 General Instructions [facility] Emergency Department [address] [place] [address] Phone #: ext- [phone] 02/10/2021 23:55 Patient: [...] begin to improve in thenext 24 hours.Call [phone] if any of these occur: 4 General Instructions [facility] Emergency Department [address] [place] [address] Phone #: ext- [phone] 02/10/2021 23:55 Patient: ELGIN KOO Sex: F [...] or water and you are getting dehydrated [id number] [employer]. [address] [place] [address]. All rights reserved. This information is not intended as asubstitute for professional medical care. Always follow your healthcare professional's instructions.Irritable Bowel Syndrome 5 General Instructions [facility] Emergency D epartment [address] [place] [address] Phone #: ext- [phone] 02/10/2021 23:55 Patient: [...] that may help you. 6 General Instructions [facility] Emergency Dep artment [address] [place] [address] Phone #: ext- [phone] 02/10/2021 23:55 Patient: ELGIN KOO Sex: F : 1980 Age: 41y Eat [...] For acute flare-ups of 7 General Instructions [facility] Emergency Department [address] [place] [address] Phone #: non- [phone] 02/10/2021 23:55 Patient: [id number] Sex: F : 1980 Age: 41yyour illness, [...] or as directed by your healthcare provider [phone] [employer]. [address] [place] [address], [place] [address]. All rights reserved. This information is not intended as asubstitute for professional medical care. Always follow your healthcare professional's instructions. You have been given the following additional information: Abdominal Pain, Unknown Cause, (Female) Irritable Bowel Syndrome 8 General Instructions [facility] Emergency Department [address] [place] [address] Phone #: ext- [phone] 02/10/2021 23:55 Patient: ELGIN KOO Sex: F : 1980 Age: 41y(Electronically signed by Linda Black MD 02/11/2021 02:45) Name Value Range Interpretation Code Description Data Rhonda rce(s) Supporting Document(s) ID Date Data Source [id number] 02/10/2021 11:55:00 PM EDT [facility] 1 Clinical Report - Nurses [facility] Emergency Department [address] [place] [address] Phone #: ext- [phone] 02/10/2021 23:55 Patient: ELGIN KOO Sex: F : 1980 Age: 41yTRIAGEArrived by private vehicle. Historian: patient. Unaccompanied. ( presents with colitis flare up perpatient).Triage time: 00:02 02/11/2021. Acuity: LEVEL 3.Chief Complaint: ABDOMINAL PAIN, NAUSEA and DIARRHEA.Alert. 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 No suspected [...] Venous Thrombosis. 2 Clinical Report - Nurses [facility] Emergency Department [address] [place] [address] Phone #: ext- [phone] 02/10/2021 23:55 Patient: [...] modified by Raul Marquez R.N., 00:04 02/11/21Schizophrenia. --00:04 02/11/21 Raul Marquez R.N.The following entry was modified by Raul Marquez R.N., 00:04 02/11/21PTSD. --00:04 02/11/21 Raul Marquez R.N..Medication/allergy information source: the patient. --00:06 02/11/21 Raul Marquez R.N.ADDITIONAL SURGERIES:CERVICAL CANCER.C- Section.Dental Surgery.[place] filter.Partial hysterectomy.Previous Abdominal Surgery. --00:05 02/11/21 Raul [...] assessment completed. No risk factors identified. --00:06 02/11/21SoRaul conde R.N.AssessmentThe patient states feels the same. --00:06 02/11/21 Raul Marquez R.N.Interventions 3 Clinical Report - Nurses [facility] Emergency Department [address] [place] [address], [place] [address] Phone #: ext- [phone] 02/10/2021 23:55 Patient: ELGIN KOO Sex: F : 1980 Age: 41y Identification band on patient. To treatment room. --00:02/11/21 Raul Marquez R.N.PHYSICAL [id number]:02/11/21. Ambulatory to room.GENERAL / NEURO / PSYCH: Alert. Oriented X 4. Appears in no acute distress. HEENT: Mucous membranes are pink.RESPIRATORY: Respirations not labored. Breath sounds within normal limits.CVS: Capillary refill less than 2 seconds.GI / : Abdomen soft and nontender. Bowel sounds within normal limits.SKIN: Skin is warm and dry. --00:07 02/11/21 Raul Marquez R.N.NURSING PROGRESS NOTES00:02/11/21. Patient gowned. Reassurance given. Two patient identifiers checked. Call lightplaced in reach. Side rails up x 2. Bed placed in lowest position. Brakes of bed on. Patient ready forevaluation- ED physician notified. --00:07 02/11/21 Raul Marquez R.N. 00:15 02/11/2021 Site #1 [...] of allergic reaction and precautions. Verbalizes understanding. --00:31 02/11/21 Raul Marquez R.N. 01:28 02/11/2021 IV Fluids [...] Marquez R.N. 4 Clinical Report - Nurses [facility] Emergency Department [address] [place] [address] Phone #: ext- [phone] 02/10/2021 23:55 Patient: ELGIN KOO Sex: F [...] Patient verbalized understanding. Written instructions provided in [place] Island[place]. The patient was discharged by the physician. She was discharged home. She left ambulatory and via taxi. --02:56 02/11/21 Raul Marquez R.N.Locked/Released at 02/11/2021 03:31 by Raul Marquez R.N. Name Value Range Interpretation Code Description Data Rhonda rce(s) Supporting Document(s) ID Date Data Source [id number] 02/10/2021 11:55:00 PM EDT [facility] 1 Clinical Report - Physicians/Mid Levels [facility] Emergency Department [address] [place] [address] Phone #: ext- [phone] 02/10/2021 23:55 Patient: ELGIN KOO Sex: F [...] Additional Surgeries: CERVICAL CANCER. . Dental Surgery. [place] filter. Partial hysterectomy. Previous Abdominal Surgery. Medications: Abilify Oral (Tablet 5 mg) 1 tablet, daily at bedtime, last dose 1999. 2 Clinical Report - Physicians/Mid Levels [facility] Emergency Department [address] [place] [address] Phone #: ext- [phone] 02/10/2021 23:55 Patient: [...] 101) 3 Clinical Report - Physicians/Mid Levels [facility] Emergency Department [address] [place] [address] Phone #: ext- [phone] 02/10/2021 23:55 Patient: [...] Male GFR Interprentation 20-49 yrs >60 mL/min Cyzbzn73-75 yrs >56 mL/min Normal 60-69 yrs >49 mL/min Normal 70-79yrs>42 mL/min Normal 80 and above >35 mL/min Normal Female GFRInterpretation 20-39 yrs >60 mL/min Normal 40-49 yrs >58 mL/minNormal 50-59 yrs >51 mL/min Normal 60-69 yrs >45 mL/min Zouukg37-94 yrs >39 mL/min Normal 80 and above >32 mL/min NormalLactic Acid: (JULI: 02/11/2021 00:15) ( MsgRcvd 02/11/2021 00:32) Final results Test Result Flag Units (Reference) LACTIC ACID 1.6 MMOL/L (0.2 - 2.2) 4 Clinical Report - Physicians/Mid Levels [facility] Emergency Department [address] [place] [address] Phone #: ext- [phone] 02/10/2021 23:55 Patient: ELGIN KOO Sex: F : 1980 Age: 41yLipase: (JULI: 02/11/2021 00:15) ( MsgRcvd 02/11/2021 00:43) Final results Test Result Flag Units (Reference) LIPASE 22 U/L (13 - 60)Magnesium: (JULI: 02/11/2021 00:15) ( [facility] 02/11/[facility] 00:43) Final results Test Result Flag Units (Reference) MAGNESIUM 1.8 MG/DL (1.7 - 2.2)Urinalysis: (JULI: 02/11/2021 00:25) ( [facility] 02/11/2021 00:37) Final results Test Result Flag [...] IV Contrast Only: (JULI: 02/10/2021 23:57) ( [facility] 02/11/2021 02:21) Finalresults Exam CT ABD //T// PELVIS W/ IV ONLY [facility] [address] [place] [address] ---------NAME--------- NUMBER SEX AGE ADMIT DISC. XRAY# F/C TYPE HANANE El [id number] F 41 02/10/21 [id number] E/R DATE OF : 1980 M/R# [id number] #: [id number] TR-04 LOCATION: EMERGENCY DEPT TRANSCRIBED: 02/11/21 2:[address] ABD //T// PELVIS W/ IV ONLY [id number] COMPLETED:02/11/21 1:02 [facility] [id number] Reason(s): Abdominal Pain PHYS ICIAN: COONEYNORM R A D I O L O G Y R E P O R T PATIENT HISTORY: yaraMonaFazalBryan ann - 02/11/2021 12:52:46 AM abd pain accumulated dlp 1298.4 mGy*cm est dlp 1287.5 mGy*cm Isovue 370 75mL lot [id number] NOVEMBER 2022, HYSTERECTOMY 12/27/2020. Time Out performed. Correct patient with 2 identifiers, type and amount of 5 Clinical Report - Physicians/Mid Levels [facility] Emergency Department [address] [place] [address] Phone #: ext- [phone] 02/10/2021 23:55 Patient: ELGIN KOO Sex: F : 1980 Age: 41ycontrast used, correct body part and side all verified prior to examination.-JJH/ ABD/PEL (DICOM Hx)EXAM: CT Abdomen and Pelvis with IV contrastCLINICAL HISTORY: YaraMonaFazalBryan ann - 02/11/2021 12:52:46 AMabd pain accumulated dlp 1298.4 mGy*cm est dlp 1287.5 mGy*cm Isovue 370 75mL [id number] NOVEMBER 2022, HYSTERECTOMY 12/27/2020. Time Out performed. [...] intravenous contrast. With; Isovue 370 75mL lot [id number] NovemberOMPARISON: None provided.FINDINGS:LUNG BASES: The lung bases [...] reconstructivetechniques. 6 Clinical Report - Physicians/Mid Levels [facility] Emergency Department [address] [place] [address] Phone #: ext- [phone] 02/10/2021 23:55 Patient: [...] Dispense 20 tablet. Refills: 0. Substitution permitted. [facility] [address] [place] [address]. . Cipro 500 mg tablet Take 1 tablet twice a day as directed for 10 days -- Dispense 20 tablet. Refills: 0. Substitution permitted. [facility] [address] [place] [address]. 7 Clinical Report - Physicians/Mid Levels [facility] Emergency Department [address] [place] [address] Phone #: ext- [phone] 02/10/2021 23:55 Patient: ELGIN KOO Sex: F : 1980 Age: 41y . Follow-up: Follow up with your doctor in two days even if well. Call for an appointment. Reason for referral: evaluation. Summary of care provided to patient via paper. Understanding of the discharge instructions verbalized. Follow-up with: [facility], , , [address] [facility], , [place], [address] Follow up in two days even if well. Call for an appointment. Reason for referral: evaluation. Summary of care provided to patient via paper.(Electronically signed by Linda Black MD 02/11/2021 02:45) Name Value Range Interpretation Code Description Data Rhonda rce(s) Supporting Document(s) ID Date Data Source [id number] 02/11/2021 02:20:00 AM EDT [address] [place] [address] ---------NAME--------- NUMBER SEX AGE ADMIT DISC. XRAY# F/C TYPE HANANE El [id number] F 41 02/10/21 [id number] X6B E/R DATE OF : 1980 M/R# [id number] #: [id number] TR-04 LOCATION: EMERGENCY DEPT TRANSCRIBED: 02/11/21 2:[address] ABD //T// PELVIS W/ IV ONLY [id number] COMPLETED:02/11/21 1:02 [facility] [id number] Reason(s): Abdominal Pain PHYSICIAN: ASHOK======= R A D I O L O G Y R E P O R T PATIENT HISTORY:Fazal avalos Joshua - 02/11/2021 12:52:46 AMabd pain accumulated dlp 1298.4 mGy*cm est dlp 1287.5 mGy*cm Isovue 370 75mL [id number] NOVEMBER 2022, HYSTERECTOMY 12/27/2020.Time Out performed. Correct patient with 2 identifiers, type and amount ofcontrast used, correct body part and side all verified prior to examination.-JJH/ ABD/PEL (DICOM Hx)EXAM: CT Abdomen and Pelvis with IV contrastCLINICAL HISTORY: Fazal Avalos Joshua - 02/11/2021 12:52:46 AMabd pain accumulated dlp 1298.4 mGy*cm est dlp 1287.5 mGy*cm Isovue 370 75mL [id number] NOVEMBER 2022, HYSTERECTOMY 12/27/2020. Time Out performed. [...] intravenous contrast. With; Isovue 370 75mL lot [id number] NovemberOMPARISON: None provided.FINDINGS:LUNG BASES: The lung bases [...] rce(s) Supporting Document(s) ID Date Data Source [id number] 02/11/2021 12:36:00 AM EDT [facility] Name Value Range Interpretation Code Description Data [facility] rce(s) Supporting Document(s) [facility] UR[facility]ALYSIS SOURCE R [facility] COLOR yellow NORMAL: Yellow [facility] CLARITY hazy NORMAL: Clear [facility] Specific gravity of Urine by Test strip 1.010 1.001 - 1.030 [facility] pH 6 5 - 9 [facility] al Glucose [Mass/volume] in Urine by Test strip NORM NORMAL: Negat [facility] Bilirubin.total [Presence] in Urine by Test strip NEG NORMAL: Negative [facility] Ketones [Presence] in Urine by Test strip NEG NORMAL: Negative [facility] Protein [Mass/volume] in Urine by Test strip NEG NORMAL: Negat [facility] Nitrite [Presence] in Urine by Test strip NEG NORMAL: Negative [facility] BLOOD 25 NORMAL: Negative [facility] LEUK EST 25 NORMAL: Negative [facility] Urobilinogen [Mass/volume] in Urine by Test strip NOR less emily n 1.0 mg/dL [facility] MICROSCOPIC See Below [facility] ital WBC 3 - 5 NORMAL: NONE SEEN [facility] Erythrocytes [#/volume] in Urine by Test strip 1 - 3 NORMAL: NON E SEEN [facility] EPITHELIAL MODERATE NORMAL: NONE SEEN [facility] Bacteria [Presence] in Urine sediment by Light microscopy 1+ SMALL NORMAL: NONE SEEN [facility] Mucus [Presence] in Urine sediment by Light microscopy 1+ NOR MAL: NONE SEEN [facility] ID Date Data Source [id number] 02/11/2021 12:47:00 AM EDT [facility] Name Value Range Interpretation Code Description Data Rhonda rce(s) Supporting Document(s) COMPREHENSIVE METABOLIC PANEL [facility] COMPREHENSIVE METABOLIC PANEL Sodium [Moles/volume] in Serum or Plasma 138 mEq/L 134 - 153 [facility] Potassium [Moles/volume] in Serum or Plasma 3.8 mEq/L 3.6 - 5.0 [facility] Chloride [Moles/volume] in Serum or Plasma 106 mEq/L 98 - 107 [facility] Carbon dioxide, total [Moles/volume] in Serum or Plasma 25 MEQ/L 22 - 30 [facility] Glucose [Mass/volume] in Serum or Plasma 101 MG/DL 70 - 99 H [facility] BUN 6 MG/DL 7 - [address] [facility] Creatinine [Mass/volume] in Serum or Plasma 0.7 MG/DL 0.7 - 1.5 [facility] BUN/CREAT 9 8 - 27 [facility] Protein [Mass/volume] in Serum or Plasma 6.2 G/DL 6.3 - 8.2 L [facility] Albumin [Mass/volume] in Serum or Plasma 4.2 G/DL 3.9 - 5.0 [facility] Globulin [Mass/volume] in Serum by calculation 2.0 GM/DL 2.4 - 3.2 L [facility] A/G RATIO 2.1 0.8 - 2.0 [facility] Calcium [Mass/volume] in Serum or Plasma 9.0 MG/DL 8.4 - 10.2 [facility] Bilirubin.total [Mass/volume] in Serum or Plasma <0.7 MG/DL 0.2 - 1.3 [facility] Alkaline phosphatase [Enzymatic activity/volume] in Serum or Plasma 67 U/L 38 - 126 [facility] Aspartate aminotransferase [Enzymatic activity/volume] in Serum or Plasma 11 U/L 5 - 40 [facility] Alanine aminotransferase [Enzymatic activity/volume] in Seru m or Plasma 9 U/L 7 - 56 [facility] Anion gap 3 in Serum or Plasma 7.0 mmol/L 8.0 - 16.0 L [facility] AGE 41 yrs [facility] NON-AA GFR >60 mL/min [facility] ital AFR AMER GFR >60 mL/min [facility] Male GFR In terprentation [...] >32 mL/min Normal ID Date Data Source [id number] 02/11/2021 12:43:00 AM EDT [facility] Name Value Range Interpretation Code Description Data Rhonda rce(s) Supporting Document(s) Magnesium [Mass/volume] in Serum or Plasma 1.8 MG/DL 1.7 - 2.2 [facility] ID Date Data Source [id number] 02/11/2021 12:43:00 AM EDT [facility] Name Value Range Interpretation Code Description Data Rhonda rce(s) Supporting Document(s) Lipase [Enzymatic activity/volume] in Serum or Plasma 22 U/L 13 - 60 [facility] ID Date Data Source [id number] 02/11/2021 12:37:00 AM EDT [facility] Name Value Range Interpretation Code Description Data Rhonda rce(s) Supporting Document(s) CBC W/AUTOMATED DIFF [facility] COMPLETE BLOOD COUNT Leukocytes [#/volume] in Blood by Automated count 5.9 10^3/uL 4.2 - 1 1.0 [facility] Erythrocytes [#/volume] in Blood by Automated count 4.59 10^6/uL 4. 20 - 5.40 [facility] Hemoglobin [Mass/volume] in Blood 14.2 g/dL 12.0 - 16.0 [facility] Hematocrit [Volume Fraction] of Blood by Automated count 39.7 % 3 7.0 - 47.0 [facility] Erythrocyte mean corpuscular volume [Entitic volume] by Auto mated count 86.5 fL 81.0 - 101 [facility] Erythrocyte mean corpuscular hemoglobin [Entitic mass] by Automated count 30.9 pg 27.0 - 34.0 [facility] Erythrocyte mean corpuscular hemoglobin concentration [Mass/volume] by Automated count 35.8 g/dL 31.0 - 36.0 [facility] Erythrocyte distribution width [Ratio] by Automated count 13.0 % 11.5 - 14.5 [facility] Platelets [#/volume] in Blood by Automated count 181 10^3/uL 150 - 45 0 [facility] Platelet mean volume [Entitic volume] in Blood by Automated count 9.9 fL 7.4 - 10.4 [facility] Neutrophils/100 leukocytes in Blood by Automated count 60.6 % 37. 0 - 80.0 [facility] Lymphocytes/100 leukocytes in Blood by Manual count 31.1 % 25.0 - 40.0 [facility] Monocytes/100 leukocytes in Blood by Automated count 5.6 % 3.0 - 8.0 [facility] Eosinophils/100 leukocytes in Blood by Automated count 2.0 % 0.0 - 7.0 [facility] Basophils/100 leukocytes in Blood by Automated count 0.5 % 0.0 - 2.5 [facility] %IG 0.2 % 0.0 - 0.[address] [facility] al %NRBC 0.0 % 0.0 - 0.0 [facility] al Neutrophils [#/volume] in Blood by Automated count 3.58 10^3/uL 2.00 - 6.90 [facility] Lymphocytes [#/volume] in Blood by Automated count 1.84 10^3/uL 0.60 - 3.40 [facility] Monocytes [#/volume] in Blood by Automated count 0.33 10^3/uL 0.00 - 0.90 [facility] Eosinophils [#/volume] in Blood by Automated count 0.12 10^3/uL 0.00 - 0.70 [facility] Basophils [#/volume] in Blood by Automated count 0.03 10^3/uL 0.00 - 0.20 [facility] #IG 0.01 10^3/uL 0.00 - 0.10 [facility] #NRBC 0.00 10^3/uL 0.00 - 0.00 [facility] MANUAL DIFF NOT INDICATED [facility] RBC MORPH NOT INDICATED [facility] spital ID Date Data Source [id number] 02/11/2021 12:32:00 AM EDT [facility] Name Value Range Interpretation Code Description Data Rhonda rce(s) Supporting Document(s) Lactate [Moles/volume] in Serum or Plasma 1.6 MMOL/L 0.2 - 2.2 [facility] ID Date Data Source [id number] 12/22/2020 08:20:00 AM EDT [facility] Name Value Range Interpretation Code Description Data Rhonda rce(s) Supporting Document(s) SARS-CoV-2 (COVID-19) RNA [Presence] in Respiratory specimen by MARTA with probe detection Not Detected [facility] This lab was ordered by [facility] and reported by [employer]. ID Date Data Source [id number] 12/13/2020 04:26:00 PM EDT [facility] 1 OrderSheet [facility] Emergency Department [address] [place] [address] Phone #: ext- [phone] 12/13/2020 16:23 Patient: [...] Description Priority Entered Acknowledged Initialed 2 OrderSheet [facility] Emergency Department [address] [place] [address] Phone #: ext- [phone] 12/13/2020 16:23 Patient: ELGIN KOO Sex: F : 1980 Age: 40y[Electronically signed by Deanna Resendez R.N. (18:24 12/13/2020)][Electronically signed by Balaji Garcia (19:47 12/13/2020)][Electronically locked by Deanna Resendez R.N. (18:24 12/13/2020)] Name Value Range Interpretation Code Description Data Rhonda rce(s) Supporting Document(s) ID Date Data Source [id number] 12/13/2020 04:26:00 PM EDT [facility] 1 Medication Reconciliation Report [facility] Emergency Department [address] [place] [address] Phone #: ext [phone] 12/13/2020 16:23 Patient: ELGIN KOO Sex: F [...] rce(s) Supporting Document(s) ID Date Data Source [id number] 12/13/2020 04:26:00 PM EDT [facility] 1 Medication Administration Record [facility] Emergency Department [address] [place] [address] Phone #: ext- [phone] 12/13/2020 16:23 Patient: [...] rce(s) Supporting Document(s) ID Date Data Source [id number] 12/13/2020 04:26:00 PM EDT [facility] 1 General Instructions [facility] Emergency Department [address] [place] [address] Phone #: [phone]- [phone] 12/13/2020 16:23 Patient: ELGIN KOO Sex: F [...] of Abdominal Pain (Female) 2 General Instructions [facility] Emergency Department [address] [place] [address] Phone #: ext- [phone] 12/13/2020 16:23 Patient: [...] for taking these medicines. 3 General Instructions [facility] Emergency Department [address] [place] [address] Phone #: ext- [phone] 12/13/2020 16:23 Patient: [...] begin to improve in thenext 24 hours.Call [phone] if any of these occur: Trouble breathing Confusion Fainting or loss of consciousness Rapid heart rate 4 General Instructions [facility] Emergency Department [address] [place] [address] Phone #: ext- [phone] 12/13/2020 16:23 Patient: ELGIN KOO Sex: F [...] or water and you are getting dehydrated [id number] [employer]. [address] [place] [address]. All rights reserved. This information is not intended as asubstitute for professional medical care. Always follow your healthcare professional's instructions. You have been given the following additional information: Abdominal Pain, Unknown Cause, (Female)(Electronically signed by Balaji Garcia 12/13/2020 19:47) Name Value Range Interpretation Code Description Data Rhonda rce(s) Supporting Document(s) ID Date Data Source [id number] 12/13/2020 04:26:00 PM EDT [facility] 1 Clinical Report - Nurses [facility] Emergency Department [address] [place] [address] Phone #: ext- [phone] 12/13/2020 16:23 Patient: EGLIN KOO Sex: F : 1980 Age: 40yTRIAGEArrived by private vehicle. Historian: patient. Unaccompanied. ( 3 days ago started with lower right,was at the ED for 2 hours and left and came here, surgery schedule for december 27 for hysterectomy, [facility] and was told to go to ED).Acuity: LEVEL 3.Chief Complaint: ABDOMINAL PAIN.Alert.Onset. (3 dyas). She has had abdominal pain. The pain is described as located in the RLQ.Treatment [employer] BALANCING TECHNICIAN:None.SEPSIS SCREEN: SIRS SCREEN NEGATIVE. SEPSIS SCREEN NEGATIVE. [...] Venous Thrombosis.Fibromyalgia. 2 Clinical Report - Nurses [facility] Emergency Department [address] [place] [address] Phone #: ext- [phone] 12/13/2020 16:23 Patient: ELGIN KOO Sex: F : 1980 Age: 40yBack Pain.Myofascial Strain.Seizure Disorder: (Stress induced). --16:35 12/13/20 Deanna Resendez R.N.The following entry was modified by Deanna Resendez R.N., 16:35 12/13/20Schizophrenia. --16:34 12/13/20 Deanna Resendez R.N.The following entry was modified by Deanna Resendez R.N., 16:35 12/13/20PTSD. --16:34 12/13/20 Deanna Resendez R.N..ADDITIONAL SURGERIES:CERVICAL CANCER..Dental Surgery.[place] filter. --16:35 12/13/20 Deanna Resendez R.N.Partial hysterectomy. [...] completed. No skin integrity riskidentified. --16:37 12/13/20 Mal, Deanna, R.N.FAMILY HX: 3 Clinical Report - Nurses [facility] Emergency Department [address] [place] [address] Phone #: ext- [phone] 12/13/2020 16:23 [id number] Sex: F : 1980 Age: 40y Mother: [...] of bed on. Patient ready for evaluation. --16:385 Deanna Resendez R.N. Patient ID band checked [...] Verbalizes understanding. --17:12 12/13/20 Deanna Resendez R.N. 17:12/13/20. BP: 120/76. MAP: 90. HR: 77. RR: 16. O2 saturation: 95%. --17:54 12/13/20 Deanna Resendez R.N. late entry - 17:12/13/20. ( resting quietly). --17:54 12/13/20 Deanna Resendez R.N. 18:12/13/2020 Site #1 removed upon discharge. Pressure dressing applied. --18:22 12/13/20 Deanna Resendez R.N.DISPOSITION / DISCHARGE Condition at departure: improved. No learning barriers present. Patient verbalized understanding. Written instructions provided in [place]. The patient was discharged home and unaccompanied at time of discharge. She left ambulatory and via private vehicle. Patient driving. --18:24 12/13/20 Deanna Resendez R.N. 4 Clinical Report - Nurses [facility] Emergency Department [address] [place] [address] Phone #: ext- [phone] 12/13/2020 16:23 Patient: ELGIN KOO Sex: F [...] rce(s) Supporting Document(s) ID Date Data Source [id number] 12/13/2020 04:26:00 PM EDT [facility] 1 Clinical Report - Physicians/Mid Levels [facility] Emergency Department [address] [place] [address] Phone #: ext- [phone] 12/13/2020 16:23 Patient: [...] a health care provider. ( [facility] too [facility] so she [...] surgery. Additional Surgeries: CERVICAL CANCER. C- Section. [place] filter. Partial hysterectomy. 2 Clinical Report - Physicians/Mid Levels [facility] Emergency Department [address] [place] [address] Phone #: ext- [phone] 12/13/2020 16:23 Patient: ELGIN KOO Sex: F [...] Flag Units (Reference) 3 Clinical Report - Physicians/[facility] Emergency Department [address] [place] [address] Phone #: ext- [phone] 12/13/2020 16:23 Patient: [...] PRESUMPTIVE POSITIVE CONFIRMATION WILL BE PERFORMED AT [facility].Beta-HCG, Qual Urine: (JULI: 12/13/2020 16:40) ( MsgRcvd 12/13/2020 17:38) Final results Test Result Flag Units (Reference) HCG URINE QUAL NEGATIVE (NORMAL: NEGAT HCG URINE QL REENTER NEGATIVE (NORMAL: NEGAT { KIT LOT # [id number] ){ KIT EXP [id number] ){ PROCEDURAL CONTROL VALID)CBC w Diff: (JULI: [...] INDICATED 4 Clinical Report - Physicians/Mid Levels [facility] Emergency Department [address] [place] [address] Phone #: ext- [phone] 12/13/2020 16:23 [id number] Sex: F : 1980 Age: 40y BMP: [...] NONE. 5 Clinical Report - Physicians/Mid Levels [facility] Emergency Department [address] [place] [address] Phone #: ext- [phone] 12/13/2020 16:23 Patient: ELGIN KOO Sex: F : 1980 Age: 40yPROGRESS AND PROCEDURESCourse of Care: 17:16 12/13/20. Right pelvic pain appears to be ongoing for over 3 months. Multipleallergies but she states she hasn't taken anything for pain. Ultrasound done 11/04 shows enlarged uteruswith left renal cyst. normal bilateral ovarian cysts 17:44 12/13/20. Records from PATIENT ACCESS SPECIALIST indicate she never had hysterectomy, and in [...] rce(s) Supporting Document(s) ID Date Data Source [id number] 12/13/2020 05:56:00 PM EDT [facility] Name Value Range Interpretation Code Description Data Rhonda rce(s) Supporting Document(s) BASIC METABOLIC PANEL [facility] BASIC METABOLIC PANEL Sodium [Moles/volume] in Serum or Plasma 138 mEq/L 134 - 153 [facility] Potassium [Moles/volume] in Serum or Plasma 4.0 mEq/L 3.6 - 5.0 [facility] Chloride [Moles/volume] in Serum or Plasma 105 mEq/L 98 - 107 [facility] Carbon dioxide, total [Moles/volume] in Serum or Plasma 25 MEQ/L 22 - 30 [facility] Glucose [Mass/volume] in Serum or Plasma 104 MG/DL 70 - 99 H [facility] BUN 8 MG/DL 7 - 21 [facility] Creatinine [Mass/volume] in Serum or Plasma 0.7 MG/DL 0.7 - 1.5 [facility] BUN/CREAT 11 8 - 27 [facility] Calcium [Mass/volume] in Serum or Plasma 9.0 MG/DL 8.4 - 10.2 [facility] Anion gap 3 in Serum or Plasma 8.0 mmol/L 8.0 - 16.0 [facility] AGE [address] [facility] al AFR AMER GFR >60 mL/min [facility] spital NON-AA GFR >60 mL/min [facility] ital Male GFR Inter prentation 20-49 yrs [...] >32 mL/min Normal ID Date Data Source [id number] 12/13/2020 05:38:00 PM EDT [facility] Name Value Range Interpretation Code Description Data Rhonda rce(s) Supporting Document(s) CBC W/AUTOMATED DIFF [facility] COMPLETE BLOOD COUNT Leukocytes [#/volume] in Blood by Automated count 5.2 10^3/uL 4.2 - 1 1.0 [facility] Erythrocytes [#/volume] in Blood by Automated count 4.30 10^6/uL 4. 20 - 5.40 [facility] Hemoglobin [Mass/volume] in Blood 13.6 g/dL 12.0 - 16.0 [facility] Hematocrit [Volume Fraction] of Blood by Automated count 37.9 % 3 7.0 - 47.0 [facility] Erythrocyte mean corpuscular volume [Entitic volume] by Auto mated count 88.1 fL 81.0 - 101 [facility] Erythrocyte mean corpuscular hemoglobin [Entitic mass] by Automated count 31.6 pg 27.0 - 34.0 [facility] Erythrocyte mean corpuscular hemoglobin concentration [Mass/volume] by Automated count 35.9 g/dL 31.0 - 36.0 [facility] Erythrocyte distribution width [Ratio] by Automated count 13.2 % 11.5 - 14.5 [facility] Platelets [#/volume] in Blood by Automated count 187 10^3/uL 150 - 45 0 [facility] Platelet mean volume [Entitic volume] in Blood by Automated count 9.4 fL 7.4 - 10.4 [facility] Neutrophils/100 leukocytes in Blood by Automated count 57.6 % 37. 0 - 80.0 [facility] Lymphocytes/100 leukocytes in Blood by Manual count 33.8 % 25.0 - 40.0 [facility] Monocytes/100 leukocytes in Blood by Automated count 6.2 % 3.0 - 8.0 [facility] Eosinophils/100 leukocytes in Blood by Automated count 1.6 % 0.0 - 7.0 [facility] Basophils/100 leukocytes in Blood by Automated count 0.6 % 0.0 - 2.5 [facility] %IG 0.2 % 0.0 - 0.0 H [facility] al %NRBC 0.0 % 0.0 - 0.0 [facility] al Neutrophils [#/volume] in Blood by Automated count 2.97 10^3/uL 2.00 - 6.90 [facility] Lymphocytes [#/volume] in Blood by Automated count 1.74 10^3/uL 0.60 - 3.40 [facility] Monocytes [#/volume] in Blood by Automated count 0.32 10^3/uL 0.00 - 0.90 [facility] Eosinophils [#/volume] in Blood by Automated count 0.08 10^3/uL 0.00 - 0.70 [facility] Basophils [#/volume] in Blood by Automated count 0.03 10^3/uL 0.00 - 0.20 [facility] #IG 0.01 10^3/uL 0.00 - 0.10 [facility] #NRBC 0.00 10^3/uL 0.00 - 0.00 [facility] MANUAL DIFF NOT INDICATED [facility] RBC MORPH NOT INDICATED [facility] spital ID Date Data Source [id number] 12/13/2020 06:04:00 PM EDT [facility] Name Value Range Interpretation Code Description Data Rhonda e(s) Supporting Document(s) DRUG SCREEN URINE [facility] URINE DRUG SCREEN Amphetamine [Presence] in Urine by Screen method NEGATIVE NORMAL: N EGATIVE [facility] BARBITURATES NEGATIVE NORMAL: NEGATIVE [facility] BENZO NEGATIVE NORMAL: NEGATIVE [facility] COCAINE NEGATIVE NORMAL: NEGATIVE [facility] Tetrahydrocannabinol [Presence] in Urine NEGATIVE NORMAL: NEGATIVE [facility] OPIATES NEGATIVE NORMAL: NEGATIVE [facility] Phencyclidine [Presence] in Urine by Screen method NEGATIVE NOR MAL: NEGATIVE [facility] \\BLDo\\URINE DRUG SCR EEN INTERPRETATION\\BLDx\\ THE CUTOFFF LEVELS FOR DETECTION ARE FOLLOWS: AMPHETAMINES 1000 ng/ml BARBITUARATES 200 ng/ml BENZODIAZEPINES 100 ng/ml THC 50 ng/ml PHENCYCLIDINE 25 ng/ml OPIATES 300 ng/ml COCAINE 300 ng/ml ALL POSITIVES ARE CONSIDERED PRESUMPTIVE POSITIVE CONFIRMATION WILL BE PERFORMED AT PHYSICIAN REQUEST. ID Date Data Source [id number] 12/13/2020 05:38:00 PM EDT [facility] Name Value Range Interpretation Code Description Data Rhonda rce(s) Supporting Document(s) HCG URINE QUAL NEGATIVE NORMAL: NEGATIVE [facility] HCG URINE QL REENTER NEGATIVE NORMAL: NEGATIVE [facility] { KIT LOT # [id number] ){ KIT EXP DATE 05-25-22 ){ PROCEDURAL CONTROL VALID ) ID Date Data Source [id number] 12/13/2020 04:56:00 PM EDT [facility] Name Value Range Interpretation Code Description Data Rhonda rce(s) Supporting Document(s) [facility] S[facility] Clean Catch [facility] ital COLOR yellow NORMAL: Yellow [facility] CLARITY clear NORMAL: Clear [facility] Specific gravity of Urine by Test strip 1.015 1.001 - 1.030 [facility] pH 6.5 5 - 9 [facility] Glucose [Mass/volume] in Urine by Test strip NORM [facility]: [facility] Bilirubin.total [Presence] in Urine by Test strip NEG NORMAL: Negative [facility] Ketones [Presence] in Urine by Test strip NEG NORMAL: Negative [facility] Protein [Mass/volume] in Urine by Test strip NEG [facility]AL[facility] Nitrite [Presence] in Urine by Test strip NEG NORMAL: Negative [facility] BLOOD 50 NORMAL: Negative [facility] Leukocyte esterase [Presence] in Urine by Test strip 25 LINDA L: Negative [facility] Urobilinogen [Mass/volume] in Urine by Test strip NOR less emily n 1.0 mg/dL [facility] MICROSCOPIC See Below [facility] ital WBC 1 - 3 NORMAL: NONE SEEN [facility] Erythrocytes [#/volume] in Urine by Test strip 3 - 5 NORMAL: NON E SEEN [facility] EPITHELIAL MODERATE NORMAL: NONE SEEN A [facility] Bacteria [Presence] in Urine sediment by Light microscopy Tr kosta NORMAL: NONE SEEN [facility] ID Date Data Source Pathology Request For Service 11/08/2020 12:00:00 AM EDT eCW 1 ([facility]) Name Value Range Interpretation Code Description Data Rhonda rce(s) Supporting Document(s) GENITOURINARY eCW1 ([facility]) ID Date Data Source [employer] Pelvis non-OB COMPLETE US 11/04/2020 12:00:00 AM EDT eC W1 ([facility]) Name Value Range Interpretation Code Description Data Rhonda rce(s) Supporting Document(s) [employer] Pelvis non-OB COMPLETE US eCW1 ([facility]) ID Date Data Source CHLAMYDIA, GC & TRICH AMP 10/09/2020 12:00:00 AM EDT eCW1 ([facility]) Name Value Range Interpretation Code Description Data Rhonda rce(s) Supporting Document(s) NOT DETECTED NEGATIVE Trichomonas vaginalis ( AMP) eCW1 ([facility]) ID Date Data Source PAP REQUEST FOR SERVICE 10/09/2020 12:00:00 AM EDT eCW1 ([facility]) Name Value Range Interpretation Code Description Data Rhonad rce(s) Supporting Document(s) PAP REQUEST FOR SERVICE eCW1 ( [facility]) ID Date Data Source FREE T4 & TSH PANEL 10/09/2020 12:00:00 AM EDT eCW1 ([facility]) Name Value Range Interpretation Code Description Data Rhonda rce(s) Supporting Document(s) 1.680 0.358-3.740 THYROID STIMULATING HORM ONE eCW1 ([facility]) 1.05 0.76-1.46 FREE T4 eCW1 ([facility] ID Date Data Source CBC - Complete Blood Count 10/09/2020 12:00:00 AM EDT eCW1 ( [facility]) Name Value Range Interpretation Code Description Data Rhonda rce(s) Supporting Document(s) 5.7 4.0-10.0 WHITE BLOOD COUNT eCW1 ([facility]) 14.8 12.0-15.5 HEMOGLOBIN eCW1 ([facility]) 4.89 4.00-5.40 RED BLOOD COUNT eCW1 ([facility]) 43.4 36.0-47.0 HEMATOCRIT eCW1 ([facility]) 30.3 27.0-33.0 MEAN CORPUSCULAR HEMOGLOB IN eCW1 ([facility]) 88.8 80.0-96.0 MEAN CORPUSCULAR VOLUME e CW1 ([facility]) 34.1 32.0-36.5 MEAN CORPUSCULAR HGB CONC eCW1 ([facility]) 12.9 11.5-14.5 RED CELL DISTRIBUTION WID TH eCW1 ([facility]) 193 150-450 PLATELET COUNT, AUTOMATED eCW1 ([facility]) ID Date Data Source URINE CULTURE 09/24/2020 12:00:00 AM EST eCW1 ([facility]) Name Value Range Interpretation Code Description Data Rhonda rce(s) Supporting Document(s) URINE CULTURE eCW1 ([facility]) ID Date Data Source UA URINALYSIS 09/24/2020 12:00:00 AM EST eCW1 ([facility]) Name Value Range Interpretation Code Description Data Rhonda rce(s) Supporting Document(s) UA URINALYSIS eCW1 ([facility]) ID Date Data Source [id number] 09/23/2020 11:34:00 AM EST [facility] Name Value Range Interpretation Code Description Data Rhonda rce(s) Supporting Document(s) SARS-CoV-2 (COVID 19) NEGATIVE - SARS-CoV-2 (COVID19) [facility] This lab was ordered by [facility] a nd reported by [facility]. ID Date Data Source RESPIRATORY PANEL 09/23/2020 12:00:00 AM EST eCW1 ([facility]) Name Value Range Interpretation Code Description Data Rhonda rce(s) Supporting Document(s) This respiratory PCR panel detects Influenza A H1, H3 and RESPIRATORY PANEL eCW1 ([facility]) ID Date Data Source Basic Metabolic Profile (BMP) 07/05/2020 12:00:00 AM EST eCW 1 ([facility]) Name Value Range Interpretation Code Description Data Rhonda rce(s) Supporting Document(s) 0.91 0.55-1.30 CREATININE FOR GFR eCW1 ([facility]) 6 7-18 BLOOD UREA NITROGEN eCW1 (Count includes the [facility]) 140 70-100 GLUCOSE, FASTING eCW1 ([facility]) > 60.0 >58 GLOMERULAR FILTRATION RATE eCW 1 ([facility]) 107 98-107 CHLORIDE LEVEL eCW1 ([facility]) 138 136-145 SODIUM LEVEL eCW1 ([facility]) 3.9 3.5-5.1 POTASSIUM SERUM eCW1 ([facility]) 28 21-32 CARBON DIOXIDE LEVEL eCW1 ([facility]) 9.2 8.5-10.1 CALCIUM LEVEL eCW1 ([facility]) ID Date Data Source [id number] 07/04/2020 10:00:00 AM EST [facility] Name Value Range Interpretation Code Description Data Rhonda rce(s) Supporting Document(s) SARS coronavirus 2 [facility] This lab was ordered by [facility] and reported by [facility]. Procedure Social History Code Duration Value Status Description Data Source(s ) Smoking 05/09/2021 12:00:00 AM EDT Current Smoker completed Curre nt Smoker eCW1 ([facility]) Smoking 05/09/2021 12:00:00 AM EDT Current Smoker completed Curre nt Smoker eCW1 ([facility]) Smoking 05/09/2021 12:00:00 AM EDT Current Smoker completed Curre nt Smoker eCW1 ([facility]) Smoking 04/07/2021 12:00:00 AM EDT Current Smoker completed Curre nt Smoker eCW1 ([facility]) Smoking 04/07/2021 12:00:00 AM EDT Current Smoker completed Curre nt Smoker eCW1 ([facility]) Smoking 04/07/2021 12:00:00 AM EDT Current Smoker completed Curre nt Smoker eCW1 ([facility]) Smoking 04/07/2021 12:00:00 AM EDT Current Smoker completed Curre nt Smoker eCW1 ([facility]) Smoking 01/28/2021 12:00:00 AM EDT Current Smoker completed Curre nt Smoker eCW1 ([facility]) Smoking 01/28/2021 12:00:00 AM EDT Current Smoker completed Curre nt Smoker eCW1 ([facility]) Smoking 01/28/2021 12:00:00 AM EDT Current Smoker completed Curre nt Smoker eCW1 ([facility]) Smoking 01/28/2021 12:00:00 AM EDT Current Smoker completed Curre nt Smoker eCW1 ([facility]) Smoking 01/28/2021 12:00:00 AM EDT Current Smoker completed Curre nt Smoker eCW1 ([facility]) Smoking 01/28/2021 12:00:00 AM EDT Current Smoker completed Curre nt Smoker eCW1 ([facility]) Smoking 01/02/2021 12:00:00 AM EDT Current Smoker completed Curre nt Smoker eCW1 ([facility]) Smoking 01/02/2021 12:00:00 AM EDT Current Smoker completed Curre nt Smoker eCW1 ([facility]) Smoking 12/16/2020 12:00:00 AM EDT Current Smoker completed Curre nt Smoker eCW1 ([facility]) Smoking 12/16/2020 12:00:00 AM EDT Current Smoker completed Curre nt Smoker eCW1 ([facility]) Smoking 12/16/2020 12:00:00 AM EDT Current Smoker completed Curre nt Smoker eCW1 ([facility]) Smoking 12/16/2020 12:00:00 AM EDT Current Smoker completed Curre nt Smoker eCW1 ([facility]) Smoking 12/16/2020 12:00:00 AM EDT Current Smoker completed Curre nt Smoker eCW1 ([facility]) Smoking 12/16/2020 12:00:00 AM EDT Current Smoker completed Curre nt Smoker eCW1 ([facility]) Smoking 11/13/2020 12:00:00 AM EDT Current Smoker completed Curre nt Smoker eCW1 ([facility]) Smoking 11/13/2020 12:00:00 AM EDT Current Smoker completed Curre nt Smoker eCW1 ([facility]) Smoking 11/13/2020 12:00:00 AM EDT Current Smoker completed Curre nt Smoker eCW1 ([facility]) Smoking 11/13/2020 12:00:00 AM EDT Current Smoker completed Curre nt Smoker eCW1 ([facility]) Smoking 11/13/2020 12:00:00 AM EDT Current Smoker completed Curre nt Smoker eCW1 ([facility]) Smoking 10/07/2020 12:00:00 AM EDT Current Smoker completed Curre nt Smoker eCW1 ([facility]) Smoking 09/24/2020 12:00:00 AM EST Current Smoker completed Curre nt Smoker eCW1 ([facility]) Smoking 09/24/2020 12:00:00 AM EST Current Smoker completed Curre nt Smoker eCW1 ([facility]) Smoking 09/24/2020 12:00:00 AM EST Current Smoker completed Curre nt Smoker eCW1 ([facility]) Smoking 09/24/2020 12:00:00 AM EST Current Smoker completed Curre nt Smoker eCW1 ([facility]) Smoking 09/03/2020 12:00:00 AM EST Current Smoker completed Curre nt Smoker eCW1 ([facility]) Smoking 09/03/2020 12:00:00 AM EST Current Smoker completed Curre nt Smoker eCW1 ([facility]) Smoking 08/23/2020 12:00:00 AM EST Current Smoker completed Curre nt Smoker eCW1 ([facility]) Smoking 08/23/2020 12:00:00 AM EST Current Smoker completed Curre nt Smoker eCW1 ([facility]) Smoking 08/23/2020 12:00:00 AM EST Current Smoker completed Curre nt Smoker eCW1 ([facility]) Smoking 07/11/2020 12:00:00 AM EST Current Smoker completed Curre nt Smoker eCW1 ([facility]) Smoking 07/11/2020 12:00:00 AM EST Current Smoker completed Curre nt Smoker eCW1 ([facility]) Smoking 07/11/2020 12:00:00 AM EST Current Smoker completed Curre nt Smoker eCW1 ([facility]) Smoking 07/05/2020 12:00:00 AM EST Current Smoker completed Curre nt Smoker eCW1 ([facility]) Smoking 07/05/2020 12:00:00 AM EST Current Smoker completed Curre nt Smoker eCW1 ([facility]) Smoking 07/05/2020 12:00:00 AM EST Current Smoker completed Curre nt Smoker eCW1 ([facility]) Smoking 06/28/2020 12:00:00 AM EST Current Smoker completed Curre nt Smoker eCW1 ([facility]) Smoking 05/30/2020 12:00:00 AM EST Current Smoker completed Curre nt Smoker eCW1 ([facility]) Smoking 05/10/2020 12:00:00 AM EDT Current Smoker completed Curre nt Smoker eCW1 ([facility]) Smoking 05/10/2020 12:00:00 AM EDT Current Smoker completed Curre nt Smoker eCW1 ([facility]) Vital Signs ID Date Data Source UNK Name Value Range Interpretation Code Description Data Source(s) Body weight 226 [lb_av] 226 [lb_av] W1 ([facility]) Body height 65.5 [in_i] 65.5 [in_i] W1 ([facility]) Body mass index (BMI) [Ratio] 37.03 kg/m2 37.03 kg/m2 eCW1 ([facility]) Systolic blood pressure 122 mm[Hg] 122 mm[Hg] e CW1 ([facility]) Diastolic blood pressure 72 mm[Hg] 72 mm[Hg] eCW1 ([facility]) Body weight 238 [lb_av] 238 [lb_av] eCW1 ([facility]) Body height 65.5 [in_i] 65.5 [in_i] W1 ([facility]) Body mass index (BMI) [Ratio] 39 kg/m2 39 kg/ m2 eCW1 ([facility]) Systolic blood pressure 122 mm[Hg] 122 mm[Hg] e CW1 ([facility]) Diastolic blood pressure 78 mm[Hg] 78 mm[Hg] eCW1 ([facility]) Body mass index (BMI) [Ratio] 38.31 kg/m2 38.31 kg/m2 eCW1 ([facility]) Body weight 233.8 [lb_av] 233.8 [lb_av] eCW1 ([facility]) Body height 65.5 [in_i] 65.5 [in_i] eCW1 ([facility]) Heart rate 106 /min 106 /min eCW1 ([facility]) Respiratory rate 18 /min 18 /min eCW1 ([facility]) Body temperature 97.1 [degF] 97.1 [degF] eCW1 ( [facility]) Systolic blood pressure 110 mm[Hg] 110 mm[Hg] e CW1 ([facility]) Diastolic blood pressure 68 mm[Hg] 68 mm[Hg] eCW1 ([facility]) Body weight 237.8 [lb_av] 237.8 [lb_av] eCW1 ([facility]) Body height 65.5 [in_i] 65.5 [in_i] eCW1 ([facility]) Body mass index (BMI) [Ratio] 38.97 kg/m2 38.97 kg/m2 eCW1 ([facility]) Systolic blood pressure 118 mm[Hg] 118 mm[Hg] e CW1 ([facility]) Diastolic blood pressure 78 mm[Hg] 78 mm[Hg] eCW1 ([facility]) Body weight 238.4 [lb_av] 238.4 [lb_av] eCW1 ([facility]) Body height 65.5 [in_i] 65.5 [in_i] eCW1 ([facility]) Body mass index (BMI) [Ratio] 39.06 kg/m2 39.06 kg/m2 eCW1 ([facility]) Systolic blood pressure 118 mm[Hg] 118 mm[Hg] e CW1 ([facility]) Diastolic blood pressure 68 mm[Hg] 68 mm[Hg] eCW1 ([facility]) Body weight 239.2 [lb_av] 239.2 [lb_av] eCW1 ([facility]) Body height 65.5 [in_i] 65.5 [in_i] eCW1 ([facility]) Body mass index (BMI) [Ratio] 39.20 kg/m2 39.20 kg/m2 eCW1 ([facility]) Heart rate 89 /min 89 /min eCW1 ([facility]) Respiratory rate 19 /min 19 /min eCW1 ([facility]) Body temperature 97.0 [degF] 97.0 [degF] eCW1 ( [facility]) Systolic blood pressure 130 mm[Hg] 130 mm[Hg] e CW1 ([facility]) Diastolic blood pressure 50 mm[Hg] 50 mm[Hg] eCW1 ([facility]) Body weight 239.4 [lb_av] 239.4 [lb_av] eCW1 ([facility]) Body height 65.5 [in_i] 65.5 [in_i] eCW1 ([facility]) Body mass index (BMI) [Ratio] 39.23 kg/m2 39.23 kg/m2 eCW1 ([facility]) Systolic blood pressure 112 mm[Hg] 112 mm[Hg] e CW1 ([facility]) Diastolic blood pressure 70 mm[Hg] 70 mm[Hg] eCW1 ([facility]) Systolic blood pressure 110 mm[Hg] 110 mm[Hg] e CW1 ([facility]) Diastolic blood pressure 66 mm[Hg] 66 mm[Hg] eCW1 ([facility]) Body weight 234.2 [lb_av] 234.2 [lb_av] eCW1 ([facility]) Body height 65.5 [in_i] 65.5 [in_i] eCW1 ([facility]) Body mass index (BMI) [Ratio] 38.38 kg/m2 38.38 kg/m2 eCW1 ([facility]) Body weight 241 [lb_av] 241 [lb_av] eCW1 ([facility]) Body height 65.5 [in_i] 65.5 [in_i] eCW1 ([facility]) Body mass index (BMI) [Ratio] 39.49 kg/m2 39.49 kg/m2 eCW1 ([facility]) Heart rate 90 /min 90 /min eCW1 ([facility]) Respiratory rate 20 /min 20 /min eCW1 ([facility]) Body temperature 96.9 [degF] 96.9 [degF] eCW1 ( [facility]) Systolic blood pressure 118 mm[Hg] 118 mm[Hg] e CW1 ([facility]) Diastolic blood pressure 72 mm[Hg] 72 mm[Hg] eCW1 ([facility]) Body weight 239.8 [lb_av] 239.8 [lb_av] eCW1 ([facility]) Body height 65.5 [in_i] 65.5 [in_i] eCW1 ([facility]) Body mass index (BMI) [Ratio] 39.29 kg/m2 39.29 kg/m2 eCW1 ([facility]) Heart rate 90 /min 90 /min eCW1 ([facility]) Respiratory rate 18 /min 18 /min eCW1 ([facility]) Body temperature 97.2 [degF] 97.2 [degF] eCW1 ( [facility]) Systolic blood pressure 110 mm[Hg] 110 mm[Hg] e CW1 ([facility]) Diastolic blood pressure 66 mm[Hg] 66 mm[Hg] eCW1 ([facility]) Body weight 238 [lb_av] 238 [lb_av] eCW1 ([facility]) Body weight 107.95 kg 107.95 kg eCW1 ([facility]) Body height 65.5 [in_i] 65.5 [in_i] eCW1 ([facility]) Body mass index (BMI) [Ratio] 39 kg/m2 39 kg/ m2 eCW1 ([facility]) Heart rate 85 /min 85 /min eCW1 ([facility]) Respiratory rate 18 /min 18 /min eCW1 ([facility]) Body temperature 97.0 [degF] 97.0 [degF] eCW1 ( [facility]) Systolic blood pressure 102 mm[Hg] 102 mm[Hg] e CW1 ([facility]) Diastolic blood pressure 66 mm[Hg] 66 mm[Hg] eCW1 ([facility]) Systolic blood pressure 128 mm[Hg] 128 mm[Hg] e CW1 ([facility]) Body temperature 97.4 [degF] 97.4 [degF] eCW1 ( [facility]) Body weight 238 [lb_av] 238 [lb_av] eCW1 ([facility]) Body height 65.5 [in_i] 65.5 [in_i] eCW1 ([facility]) Body mass index (BMI) [Ratio] 39.00 kg/m2 39.00 kg/m2 eCW1 ([facility]) Heart rate 91 /min 91 /min eCW1 ([facility]) Respiratory rate 18 /min 18 /min eCW1 ([facility]) Diastolic blood pressure 7 mm[Hg] 7 mm[Hg] eCW1 ([facility]) Respiratory rate 18 /min 18 /min eCW1 ([facility]) Body weight 241 [lb_av] 241 [lb_av] eCW1 ([facility]) Body weight 109.32 kg 109.32 kg eCW1 ([facility]) Body height 65.5 [in_i] 65.5 [in_i] eCW1 ([facility]) Body temperature 97.2 [degF] 97.2 [degF] eCW1 ( [facility]) Body mass index (BMI) [Ratio] 39.49 kg/m2 39.49 kg/m2 eCW1 ([facility]) Heart rate 66 /min 66 /min eCW1 ([facility]) Systolic blood pressure 130 mm[Hg] 130 mm[Hg] e CW1 ([facility]) Diastolic blood pressure 68 mm[Hg] 68 mm[Hg] eCW1 ([facility]) Body weight 237 [lb_av] 237 [lb_av] eCW1 ([facility]) Body temperature 96.4 [degF] 96.4 [degF] eCW1 ( [facility]) Body height 65.5 [in_i] 65.5 [in_i] eCW1 ([facility]) Systolic blood pressure 128 mm[Hg] 128 mm[Hg] e CW1 ([facility]) Diastolic blood pressure 70 mm[Hg] 70 mm[Hg] eCW1 ([facility]) Body mass index (BMI) [Ratio] 38.83 kg/m2 38.83 kg/m2 eCW1 ([facility]) Heart rate 100 /min 100 /min eCW1 ([facility]) Respiratory rate 18 /min 18 /min eCW1 ([facility]) Body weight 240 [lb_av] 240 [lb_av] eCW1 ([facility]) Systolic blood pressure 124 mm[Hg] 124 mm[Hg] e CW1 ([facility]) Body weight 108.86 kg 108.86 kg eCW1 ([facility]) Diastolic blood pressure 68 mm[Hg] 68 mm[Hg] eCW1 ([facility]) Body height 65.5 [in_i] 65.5 [in_i] eCW1 ([facility]) Body mass index (BMI) [Ratio] 39.33 kg/m2 39.33 kg/m2 eCW1 ([facility]) Heart rate 80 /min 80 /min eCW1 ([facility]) Respiratory rate 18 /min 18 /min eCW1 ([facility]) Body temperature 97.9 [degF] 97.9 [degF] eCW1 ( [facility]) Body weight 237 [lb_av] 237 [lb_av] eCW1 ([facility]) Body height 65.5 [in_i] 65.5 [in_i] eCW1 ([facility]) Body mass index (BMI) [Ratio] 38.83 kg/m2 38.83 kg/m2 eCW1 ([facility]) Heart rate 92 /min 92 /min eCW1 ([facility]) Respiratory rate 18 /min 18 /min eCW1 ([facility]) Body temperature 96.7 [degF] 96.7 [degF] eCW1 ( [facility]) Systolic blood pressure 120 mm[Hg] 120 mm[Hg] e CW1 ([facility]) Diastolic blood pressure 78 mm[Hg] 78 mm[Hg] eCW1 ([facility]) Heart rate 80 /min 80 /min eCW1 ([facility]) Respiratory rate 17 /min 17 /min eCW1 ([facility]) Body temperature 97.1 [degF] 97.1 [degF] eCW1 ( [facility]) Systolic blood pressure 120 mm[Hg] 120 mm[Hg] e CW1 ([facility]) Diastolic blood pressure 76 mm[Hg] 76 mm[Hg] eCW1 ([facility]) Body weight 232.4 [lb_av] 232.4 [lb_av] eCW1 ([facility]) Body height 65.5 [in_i] 65.5 [in_i] eCW1 ([facility]) Body mass index (BMI) [Ratio] 38.08 kg/m2 38.08 kg/m2 W1 ([facility]) Patient Treatment Plan of Care Planned Activity Planned Date Details Description Data Source (s) Fluconazole 150 MG Oral Tablet [Diflucan] 06/09/2021 12:00:00 AM ES T eCW1 ([facility]) Fluconazole 150 MG Oral Tablet [Diflucan] 06/09/2021 12:00:00 AM ES T eCW1 ([facility]) Fluconazole 150 MG Oral Tablet [Diflucan] 04/07/2021 12:00:00 AM ED T eCW1 ([facility]) Fluconazole 150 MG Oral Tablet [Diflucan] 04/07/2021 12:00:00 AM ED T eCW1 ([facility]) Fluconazole 150 MG Oral Tablet [Diflucan] 04/07/2021 12:00:00 AM ED T eCW1 ([facility]) Fluconazole 150 MG Oral Tablet [Diflucan] 04/07/2021 12:00:00 AM ED T eCW1 ([facility]) Fluconazole 150 MG Oral Tablet [Diflucan] 04/07/2021 12:00:00 AM ED T eCW1 ([facility]) Fluconazole 150 MG Oral Tablet [Diflucan] 04/07/2021 12:00:00 AM ED T eCW1 ([facility]) Fluconazole 150 MG Oral Tablet [Diflucan] 04/07/2021 12:00:00 AM ED T eCW1 ([facility]) Codeine Phosphate 2 MG/ML / Guaifenesin 20 MG/ML Oral Solution 02/19/2021 12:00:00 AM EDT eCW1 [facility] Codeine Phosphate 2 MG/ML / Guaifenesin 20 MG/ML Oral Solution 02/19/2021 12:00:00 AM EDT eCW1 ([facility]) Codeine Phosphate 2 MG/ML / Guaifenesin 20 MG/ML Oral Solution 02/19/2021 12:00:00 AM EDT eCW1 ([facility]) Codeine Phosphate 2 MG/ML / Guaifenesin 20 MG/ML Oral Solution 02/19/2021 12:00:00 AM EDT eCW1 ([facility]) Acetaminophen 325 MG / Hydrocodone Bitartrate 5 MG Ora l Tablet 12/31/2020 12:00:00 AM EDT eCW1 ([facility]) HYDROcodone Bitartrate ER 10 MG 12/31/2020 12:00:00 AM EDT eCW1 ([facility]) Acetaminophen 325 MG / Hydrocodone Bitartrate 5 MG Ora l Tablet 12/31/2020 12:00:00 AM EDT eCW1 ([facility]) HYDROcodone Bitartrate ER 10 MG 12/31/2020 12:00:00 AM EDT eCW1 ([facility]) heparin sodium, porcine 5000 UNT/ML Injectable Solutio n 12/24/2020 12:00:00 AM EDT eCW1 ([facility]) heparin sodium, porcine 5000 UNT/ML Injectable Solutio n 12/24/2020 12:00:00 AM EDT eCW1 ([facility]) heparin sodium, porcine 5000 UNT/ML Injectable Solutio n 12/24/2020 12:00:00 AM EDT eCW1 ([facility]) heparin sodium, porcine 5000 UNT/ML Injectable Solutio n 12/24/2020 12:00:00 AM EDT eCW1 ([facility]) heparin sodium, porcine 5000 UNT/ML Injectable Solutio n 12/24/2020 12:00:00 AM EDT eCW1 ([facility]) Heparin Sodium (Porcine) 5000 unit/mL 12/18/2020 12:00:00 AM EDT eCW1 ([facility]) Heparin Sodium (Porcine) 5000 unit/mL 12/18/2020 12:00:00 AM EDT eCW1 ([facility]) Heparin Sodium (Porcine) 5000 unit/mL 12/18/2020 12:00:00 AM EDT eCW1 ([facility]) Heparin Sodium (Porcine) 5000 unit/mL 12/18/2020 12:00:00 AM EDT eCW1 ([facility]) Heparin Sodium (Porcine) 5000 unit/mL 12/18/2020 12:00:00 AM EDT eCW1 ([facility]) Heparin Sodium (Porcine) 5000 unit/mL 12/18/2020 12:00:00 AM EDT eCW1 ([facility]) Clobetasol Prop Emollient Base 0.05 % 10/09/2020 12:00:00 AM EDT eCW1 ([facility]) Levaquin 750 MG 09/24/2020 12:00:00 AM EST eCW1 ([facility]) Levaquin 750 MG 09/24/2020 12:00:00 AM EST eCW1 ([facility]) Levaquin 750 MG 09/24/2020 12:00:00 AM EST eCW1 ([facility]) Levaquin 750 MG 09/24/2020 12:00:00 AM EST eCW1 ([facility]) May Have - 09/10/2020 12:00:00 AM EST e CW1 ([facility]) benzonatate 100 MG Oral Capsule [Qiana Ivey] 05/30/2020 12: 00:00 AM EST eCW1 ([facility]) meloxicam 7.5 MG Oral Tablet 05/30/2020 12:00:00 AM EST eCW1 ([facility]) atorvastatin 20 MG Oral Tablet 05/14/2020 12:00:00 AM EDT eCW1 ([facility]) atorvastatin 20 MG Oral Tablet 05/14/2020 12:00:00 AM EDT eCW1 ([facility]) atorvastatin 20 MG Oral Tablet 05/14/2020 12:00:00 AM EDT eCW1 ([facility])
[2021-06-19] MEDS ORDERED: PALI1TAB PO (18:29)
[2021-06-19] MEDS ORDERED: PROAAER10 INH (18:29)
[2021-06-19] MEDS ORDERED: FLUT1INH2 INH (18:29)
[2021-06-19] MEDS ORDERED: HOME MED LIST COMPLETE! XX SCH (18:30)
--- NOTE | 2021-06-19 20:51 | ECGEPIP ---
[facility] - ED Test Date: 2021-06-19 Pat Name: ELGIN KOO Department: Room: - Gender: Female Clerk Of Works: JOSE DAVID : 1980 Requested By: Monica Christy Order Number: [id number] Reading MD: Tony Yu Measurements Intervals [place] Rate: 77 P: 61 SD: 148 QRS: 65 QRSD: 72 T: 36 QT: 418 QTc: 473 Interpretive Statements Normal sinus rhythm SIMILAR TO 04/08/20 Electronically Signed on 06-19-2021 20:51:07 EST by Tony Yu
[2021-06-19] MEDS ORDERED: APIXABAN 5 MG TAB (ELIQUIS) PO ONE (21:10)
[2021-06-19] MEDS ORDERED: ALPRAZolam 0.5 MG TAB PO ONE (21:10)
[2021-06-20 05:09] VITALS: BP 112/61
== END 2021-06-20 05:13 ==
LOC: M ED 22:24
DX: R45.851 Suicidal ideations (principal); Z76.5 Malingerer [conscious simulation]; F17.200 Nicotine dependence, unspecified, uncomplicated; Z79.01 Long term (current) use of anticoagulants; Z88.0 Allergy status to penicillin; Z88.6 Allergy status to analgesic agent; Z88.8 Allergy status to other drugs, medicaments and biological substances; Z88.2 Allergy status to sulfonamides

== ENCOUNTER → 2021-07-11 | Outpatient (CLI) | payer OTHER ==
[~2021-07-11] MED LIST changes: +ALPR1TAB3 PO; -OMEP-221; -OMEP-221 PO; +OMEP40CA5; +OMEP40CA5 PO; +PALI1TAB PO; -PHEN15CA PO; +PHEN15CA6 PO; +TIZA10TA PO; -TIZA4TAB4 PO
[2021-07-11 13:59] LABS: APPEARANCE, URINE CLEAR (CLEAR); BACTERIA, URINE AUTO NEGATIVE (NEGATIVE); BILIRUBIN, URINE AUTO NEGATIVE (NEGATIVE); BLOOD, URINE BLOOD 1+ (NEGATIVE); COLOR, URINE YELLOW (YELLOW); GLUCOSE, URINE (UA) AUTO NEGATIVE (NEGATIVE); KETONE, URINE AUTO NEGATIVE (NEGATIVE); LEUKOCYTE ESTERASE, URINE AUTO NEGATIVE (NEGATIVE); NITRITE, URINE AUTO NEGATIVE (NEGATIVE); PROTEIN, URINE AUTO NEGATIVE (NEGATIVE); RBC, URINE AUTO 0 /HPF (0-3); SPECIFIC GRAVITY URINE AUTO 1.004 (1.002-1.035); SQUAMOUS EPITHELIAL CELL UR AU 4 /HPF (0-6); UROBILINOGEN, URINE AUTO 0.2 mg/dL (0.0-2.0); WBC, URINE AUTO 1 /HPF (0-3)
[2021-07-11 15:23] LABS: HEPATITIS B CORE ANTIBODY IGM NEGATIVE (NEGATIVE); HEPATITIS C VIRUS ABY INDEX 0.3 INDEX (<0.8); HIV 1&2 SCREEN CENTAUR NEGATIVE (NEGATIVE)
[2021-07-11 15:51] LABS: GC DNA AMPLIFICATION NEGATIVE (NEGATIVE)
== END ==
LOC: M PLALAB 10:23
PROVIDERS: ATTEND Obstetrics & Gynecology
DX: Z11.3 Encounter for screening for infections with a predominantly sexual mode of transmission (principal); R30.0 Dysuria

== ENCOUNTER → 2021-07-11 | Outpatient (CLI) | payer OTHER ==
[2021-07-11 14:31] LABS: ALBUMIN 4.1 GM/DL (3.2-5.2); ALT/SGPT 22 U/L (12-78); BILIRUBIN,TOTAL 0.5 MG/DL (0.2-1.0); BLOOD UREA NITROGEN 10 MG/DL (7-18); CALCIUM LEVEL 8.9 MG/DL (8.5-10.1); CARBON DIOXIDE LEVEL 28 MEQ/L (21-32); CHLORIDE LEVEL 109 MEQ/L (98-107); CHOLESTEROL LEVEL 206 MG/DL (<200); CHOLESTEROL RISK RATIO 5.421 (<5); GLOMERULAR FILTRATION RATE > 60.0 (>58); GLUCOSE, FASTING 95 MG/DL (70-100); HDL CHOLESTEROL 38 MG/DL (>40); LDL CHOLESTEROL 144 MG/DL (<100); NON-HDL-C 168 MG/DL; POTASSIUM SERUM 4.2 MEQ/L (3.5-5.1); SODIUM LEVEL 141 MEQ/L (136-145); TOTAL PROTEIN 7.1 GM/DL (6.4-8.2); TRIGLYCERIDES LEVEL 122 MG/DL (<150)
== END ==
LOC: M PLALAB 10:25
PROVIDERS: ATTEND Physician Assistant Medical
DX: E78.2 Mixed hyperlipidemia (principal)

== ENCOUNTER → 2021-09-03 | Outpatient (CLI) | payer OTHER | LOC: M PLAIMG 11:22 | PROVIDERS: ATTEND Physician Assistant Medical | DX: M54.41 Lumbago with sciatica, right side (principal) ==

== ENCOUNTER 2021-11-05 20:34 | Emergency (ER) | payer OTHER ==
[~2021-11-05] VITALS: Ht 165.1 cm; Wt 106.8 kg
[2021-11-05 20:35] VITALS: BP 116/77
[2021-11-05 22:08] LABS: HEMATOCRIT 44.4 % (36.0-47.0); MEAN CORPUSCULAR HEMOGLOBIN 32.1 pg (27.0-33.0); PLATELET COUNT, AUTOMATED 192 10^3/uL (150-450); RED BLOOD COUNT 4.99 10^6/uL (4.00-5.40); WHITE BLOOD COUNT 7.2 10^3/uL (4.0-10.0)
[2021-11-05 22:33] LABS: ALT/SGPT 23 U/L (12-78); BILIRUBIN,TOTAL 0.7 MG/DL (0.2-1.0); BLOOD UREA NITROGEN 8 MG/DL (7-18); CALCIUM LEVEL 8.8 MG/DL (8.5-10.1); CARBON DIOXIDE LEVEL 26 MEQ/L (21-32); CHLORIDE LEVEL 108 MEQ/L (98-107); CREATININE FOR GFR 0.83 MG/DL (0.55-1.30); GLOMERULAR FILTRATION RATE > 60.0 (>58); GLUCOSE, FASTING 108 MG/DL (70-100); POTASSIUM SERUM 3.8 MEQ/L (3.5-5.1); SODIUM LEVEL 140 MEQ/L (136-145); TOTAL PROTEIN 6.8 GM/DL (6.4-8.2)
== END 2021-11-05 22:54 | disposition left against medical advice (07) ==
LOC: M ED 20:34
DX: Z53.21 Procedure and treatment not carried out due to patient leaving prior to being seen by health care provider (principal)

== ENCOUNTER 2021-12-03 22:25 | Emergency (ER) | payer OTHER ==
[~2021-12-03] VITALS: Ht 165.1 cm; Wt 102.3 kg
[2021-12-03 22:25] VITALS: BP 132/84
== END 2021-12-03 22:29 | disposition left against medical advice (07) ==
LOC: M ED 22:25
DX: Z53.21 Procedure and treatment not carried out due to patient leaving prior to being seen by health care provider (principal)

== ENCOUNTER → 2021-12-03 | Outpatient (CLI) | payer OTHER ==
[2021-12-03 17:28] LABS: BASO % 0.5 % (0.0-1.0); EOS # 0.1 10^3/uL (0.0-0.5); EOS % 1.2 % (0.0-3.0); HEMATOCRIT 45.2 % (36.0-47.0); HEMOGLOBIN 16.4 g/dl (12.0-15.5); LYMPH # 2.1 10^3/uL (1.5-5.0); MEAN CORPUSCULAR HEMOGLOBIN 32.3 pg (27.0-33.0); MEAN CORPUSCULAR HGB CONC 36.3 g/dl (32.0-36.5); MONO # 0.5 10^3/uL (0.0-0.8); MONO % 7.1 % (2.0-8.0); NEUTROPHILS # 4.8 10^3/uL (1.5-8.5); NEUTROPHILS % 62.9 % (36.0-66.0); PLATELET COUNT, AUTOMATED 194 10^3/uL (150-450); RED BLOOD COUNT 5.08 10^6/uL (4.00-5.40); WHITE BLOOD COUNT 7.6 10^3/uL (4.0-10.0)
[2021-12-03 17:38] LABS: ALBUMIN 4.3 GM/DL (3.2-5.2); ALT/SGPT 17 U/L (12-78); BILIRUBIN,TOTAL 0.6 MG/DL (0.2-1.0); BLOOD UREA NITROGEN 6 MG/DL (7-18); CALCIUM LEVEL 9.4 MG/DL (8.5-10.1); CARBON DIOXIDE LEVEL 28 MEQ/L (21-32); CHLORIDE LEVEL 108 MEQ/L (98-107); CHOLESTEROL LEVEL 193 MG/DL (<200); CHOLESTEROL RISK RATIO 6.433 (<5); CREATININE FOR GFR 0.84 MG/DL (0.55-1.30); FREE T4 1.05 NG/DL (0.76-1.46); GLOMERULAR FILTRATION RATE > 60.0 (>58); GLUCOSE, FASTING 109 MG/DL (70-100); HDL CHOLESTEROL 30 MG/DL (>40); LDL CHOLESTEROL 115 MG/DL (<100); NON-HDL-C 163 MG/DL; POTASSIUM SERUM 4.6 MEQ/L (3.5-5.1); SODIUM LEVEL 140 MEQ/L (136-145); TOTAL PROTEIN 7.5 GM/DL (6.4-8.2); TRIGLYCERIDES LEVEL 241 MG/DL (<150)
[2021-12-03 17:50] LABS: HEMOGLOBIN A1c 5.1 %
== END ==
LOC: M PLALAB 14:47
PROVIDERS: ATTEND Physician Assistant Medical
DX: E66.9 Obesity, unspecified (principal)

== ENCOUNTER → 2022-02-09 | Outpatient (CLI) | payer OTHER ==
[~2022-02-09] MED LIST changes: +ALBU8.5H; +ATOR1TAB21; +FLUTISP; +HYDR-3713; +MELO7.5T35; +METH-1165; +MIRT-10; +NORT10CA2; +PALI1TAB2
== END ==
LOC: M LABSMTC 10:04
PROVIDERS: ATTEND Anesthesiology
DX: Z01.812 Encounter for preprocedural laboratory examination (principal)

== ENCOUNTER 2022-02-12 07:38 | Day surgery (SDC) | payer OTHER ==
[~2022-02-12] VITALS: Ht 165.1 cm; Wt 100.9 kg
[~2022-02-12 07:38] MED LIST changes: -ATOR1TAB21; +HYDR-3363 PO; -MELO7.5T35; -METH-1165; +METH-1165 PO; -MIRT-10; +MIRT-10 PO; -NORT10CA2; +NORT10CA2 PO; +NS 1,000 ML IV ONE; +OMEP10CASR PO; -PALI1TAB2; +PALI1TAB2 PO
[2022-02-12] MEDS ORDERED: propofoL 200 MG/20 ML VIAL As Ordered ONE ×2 (09:11→09:27)
[2022-02-12] MEDS ORDERED: fentaNYL 100 MCG/2 ML INJECTION As Ordered ONE (09:11)
[2022-02-12] MEDS ORDERED: LIDOCAINE 2% 100MG/5ML SDV (FOR ANES.) As Ordered ONE (09:11)
[2022-02-12 10:25] VITALS: BP 140/89
== END 2022-02-12 10:38 | disposition home or self-care (01) ==
LOC: M OPP 07:38
PROVIDERS: ATTEND Internal Medicine Gastroenterology
DX: K63.5 Polyp of colon (principal); K64.8 Other hemorrhoids; K92.1 Melena; K22.81 Esophageal polyp; K21.00 Gastro-esophageal reflux disease with esophagitis, without bleeding; R13.10 Dysphagia, unspecified; Z79.01 Long term (current) use of anticoagulants; Z79.02 Long term (current) use of antithrombotics/antiplatelets; Z79.899 Other long term (current) drug therapy
CPT/HCPCS: 43239; 45385; 88305; J3010

== ENCOUNTER 2022-02-17 17:17 | Emergency (ER) | payer OTHER ==
[~2022-02-17] VITALS: Ht 165.1 cm; Wt 102.3 kg
[~2022-02-17 17:17] MED LIST changes: -NS 1,000 ML IV ONE
[2022-02-17] MEDS ORDERED: METR-265 (18:05)
[2022-02-17 21:09] LABS: BASO % 0.4 % (0.0-1.0); EOS # 0.1 10^3/uL (0.0-0.5); EOS % 1.2 % (0.0-3.0); HEMATOCRIT 43.9 % (36.0-47.0); HEMOGLOBIN 15.8 g/dl (12.0-15.5); LYMPH # 2.5 10^3/uL (1.5-5.0); LYMPH % 32.8 % (24.0-44.0); MEAN CORPUSCULAR HEMOGLOBIN 31.6 pg (27.0-33.0); MEAN CORPUSCULAR VOLUME 87.8 fl (80.0-96.0); MONO # 0.5 10^3/uL (0.0-0.8); MONO % 5.9 % (2.0-8.0); NEUTROPHILS # 4.6 10^3/uL (1.5-8.5); NEUTROPHILS % 59.4 % (36.0-66.0); PLATELET COUNT, AUTOMATED 167 10^3/uL (150-450); WHITE BLOOD COUNT 7.7 10^3/uL (4.0-10.0)
[2022-02-17] MEDS ORDERED: MORPHINE 4 MG/ML 1ML VIAL/SYRINGE IV ONE ×2 (21:20→23:40)
[2022-02-17] MEDS ORDERED: ONDANSETRON 4MG 2ML VIAL IV ONE (21:20)
[2022-02-17] MEDS ORDERED: NS 1,000 ML IV ONE (21:20)
[2022-02-17 21:29] LABS: ALBUMIN 4.1 GM/DL (3.2-5.2); ALT/SGPT 14 U/L (12-78); BILIRUBIN,DIRECT 0.2 MG/DL (0.0-0.2); BILIRUBIN,TOTAL 0.7 MG/DL (0.2-1.0); BLOOD UREA NITROGEN 7 MG/DL (7-18); CALCIUM LEVEL 9.2 MG/DL (8.5-10.1); CARBON DIOXIDE LEVEL 22 MEQ/L (21-32); CHLORIDE LEVEL 110 MEQ/L (98-107); CREATININE FOR GFR 0.82 MG/DL (0.55-1.30); GLOMERULAR FILTRATION RATE > 60.0 (>58); GLUCOSE, FASTING 99 MG/DL (70-100); LIPASE 84 U/L (73-393); POTASSIUM SERUM 3.8 MEQ/L (3.5-5.1); SODIUM LEVEL 142 MEQ/L (136-145)
[2022-02-18] MEDS ORDERED: ISOVUE-370 76% 100ML VIAL As Ordered ONE (01:16)
[2022-02-18] MEDS ORDERED: METOCLOPRAMIDE INJ 10MG/2ML VIAL (J2765 PER 1) IV ONE (02:00)
[2022-02-18 02:11] LABS: RSV AMPLIFICATION NEGATIVE (NEGATIVE)
[2022-02-18] MEDS ORDERED: ONDA4TAB6 PO (02:17)
[2022-02-18] MEDS ORDERED: PERC5TAB12 PO (02:17)
[2022-02-18] MEDS ORDERED: PROM25TA12 PO (02:20)
[2022-02-18] MEDS ORDERED: OXYCODONE/APAP 5MG/325MG(HOME DOSE PACK) PO ONE (02:25)
[2022-02-18 02:35] VITALS: BP 136/74
[2022-02-18 03:06] LABS: GC DNA AMPLIFICATION NEGATIVE (NEGATIVE)
== END 2022-02-18 03:06 | disposition home or self-care (01) ==
LOC: M ED 17:17
DX: N83.02 Follicular cyst of left ovary (principal); N83.202 Unspecified ovarian cyst, left side; T18.4XXA Foreign body in colon, initial encounter; E11.9 Type 2 diabetes mellitus without complications; K21.9 Gastro-esophageal reflux disease without esophagitis; E78.5 Hyperlipidemia, unspecified; R56.9 Unspecified convulsions; J45.909 Unspecified asthma, uncomplicated; J44.9 Chronic obstructive pulmonary disease, unspecified; K58.9 Irritable bowel syndrome, unspecified; Z86.718 Personal history of other venous thrombosis and embolism; F17.200 Nicotine dependence, unspecified, uncomplicated; Z79.01 Long term (current) use of anticoagulants; Z79.899 Other long term (current) drug therapy; Z88.0 Allergy status to penicillin; Z88.6 Allergy status to analgesic agent; Z88.2 Allergy status to sulfonamides; Z88.8 Allergy status to other drugs, medicaments and biological substances
CPT/HCPCS: 74177; 76856; 80048; 80076; 81001; 83605; 83690; 85025; 87631; 87661; 87810; 87850; 93976; 96361; 96374; 96375; 96376; 99284; J2270; J2405; J2765; Q9967

== ENCOUNTER → 2022-02-25 | Outpatient (REF) | payer OTHER ==
[~2022-02-25] MED LIST changes: +METR-265; +NYST-13 TOP; -NYST10CR TOP; +ONDA4TAB6 PO; +PERC5TAB12 PO; +PROM25TA12 PO
== END ==
LOC: M SFHCPLAZ 12:54
PROVIDERS: ATTEND Physician Assistant Medical
DX: M54.31 Sciatica, right side (principal)

== ENCOUNTER → 2022-03-02 | Outpatient (CLI) | payer OTHER | LOC: M WHC 13:13 | PROVIDERS: ATTEND Surgery | DX: N64.4 Mastodynia (principal); N63.11 Unspecified lump in the right breast, upper outer quadrant; N60.12 Diffuse cystic mastopathy of left breast ==

== ENCOUNTER 2022-04-30 00:40 | Emergency (ER) | payer OTHER ==
[~2022-04-30] VITALS: Ht 165.1 cm; Wt 102.3 kg
[~2022-04-30 00:40] MED LIST changes: -ALBU8.5H; +ALBU8.5H PO
[2022-04-30 01:01] LABS: BASO % 0.4 % (0.0-1.0); EOS # 0.1 10^3/uL (0.0-0.5); EOS % 1.3 % (0.0-3.0); HEMATOCRIT 41.8 % (36.0-47.0); HEMOGLOBIN 14.9 g/dl (12.0-15.5); LYMPH % 41.5 % (24.0-44.0); MEAN CORPUSCULAR HEMOGLOBIN 31.6 pg (27.0-33.0); MEAN CORPUSCULAR HGB CONC 35.6 g/dl (32.0-36.5); MEAN CORPUSCULAR VOLUME 88.7 fl (80.0-96.0); MONO # 0.4 10^3/uL (0.0-0.8); MONO % 5.1 % (2.0-8.0); NEUTROPHILS # 3.7 10^3/uL (1.5-8.5); NEUTROPHILS % 51.6 % (36.0-66.0); PLATELET COUNT, AUTOMATED 191 10^3/uL (150-450); RED BLOOD COUNT 4.71 10^6/uL (4.00-5.40); WHITE BLOOD COUNT 7.1 10^3/uL (4.0-10.0)
[2022-04-30 02:31] LABS: ALT/SGPT 17 U/L (12-78); BILIRUBIN,DIRECT 0.1 MG/DL (0.0-0.2); BILIRUBIN,TOTAL 0.5 MG/DL (0.2-1.0); BLOOD UREA NITROGEN 9 MG/DL (7-18); CALCIUM LEVEL 8.7 MG/DL (8.5-10.1); CARBON DIOXIDE LEVEL 26 MEQ/L (21-32); CHLORIDE LEVEL 108 MEQ/L (98-107); CREATININE FOR GFR 0.94 MG/DL (0.55-1.30); GLOMERULAR FILTRATION RATE > 60.0 (>58); GLUCOSE, FASTING 96 MG/DL (70-100); LIPASE 129 U/L (73-393); POTASSIUM SERUM 3.9 MEQ/L (3.5-5.1); SODIUM LEVEL 138 MEQ/L (136-145)
[2022-04-30] MEDS ORDERED: MORPHINE 4 MG/ML 1ML VIAL/SYRINGE As Ordered ONE (02:33)
[2022-04-30] MEDS ORDERED: ONDANSETRON 4MG 2ML VIAL As Ordered ONE (02:33)
[2022-04-30] MEDS ORDERED: diphenhydrAMINE 50MG/ML VIAL (J1200) As Ordered ONE (02:51)
[2022-04-30] MEDS ORDERED: MORPHINE 4 MG/ML 1ML VIAL/SYRINGE IV ONE (04:55)
[2022-04-30] MEDS ORDERED: NS 1,000 ML IV ONE (06:25)
[2022-04-30] MEDS ORDERED: traMADol 50 MG TAB PO ONE (07:45)
[2022-04-30 09:05] VITALS: BP 127/80
== END 2022-04-30 09:19 | disposition home or self-care (01) ==
LOC: M ED 00:40
DX: N83.299 Other ovarian cyst, unspecified side (principal); R31.9 Hematuria, unspecified; E27.8 Other specified disorders of adrenal gland
CPT/HCPCS: 74176; 76856; 80048; 80076; 81000; 81015; 83690; 85025; 96361; 96374; 99284; J2270

== ENCOUNTER 2022-05-02 17:31 | Observation (INO) | payer OTHER ==
[~2022-05-02] VITALS: Ht 165.1 cm; Wt 112.2 kg
[2022-05-02] MEDS ORDERED: NS 1,000 ML IV SCH (18:05)
[2022-05-02] MEDS ORDERED: MORPHINE 4 MG/ML 1ML VIAL/SYRINGE IV ONE ×2 (18:05→21:15)
[2022-05-02 18:53] LABS: BASO % 0.5 % (0.0-1.0); EOS # 0.1 10^3/uL (0.0-0.5); EOS % 1.8 % (0.0-3.0); HEMOGLOBIN 15.3 g/dl (12.0-15.5); LYMPH # 1.8 10^3/uL (1.5-5.0); LYMPH % 31.6 % (24.0-44.0); MEAN CORPUSCULAR HEMOGLOBIN 31.9 pg (27.0-33.0); MEAN CORPUSCULAR HGB CONC 36.4 g/dl (32.0-36.5); MEAN CORPUSCULAR VOLUME 87.7 fl (80.0-96.0); MONO # 0.3 10^3/uL (0.0-0.8); MONO % 5.4 % (2.0-8.0); NEUTROPHILS # 3.5 10^3/uL (1.5-8.5); NEUTROPHILS % 60.7 % (36.0-66.0); PLATELET COUNT, AUTOMATED 171 10^3/uL (150-450); RED BLOOD COUNT 4.79 10^6/uL (4.00-5.40); WHITE BLOOD COUNT 5.7 10^3/uL (4.0-10.0)
[2022-05-02] MEDS ORDERED: ISOVUE-370 76% 100ML VIAL As Ordered ONE (19:04)
[2022-05-02 19:17] LABS: PLATELET CLUMPS SMALL AMT; PLATELET ESTIMATE NORMAL (NORMAL)
[2022-05-02 19:21] LABS: HCG, SERUM QUALITATIVE NEGATIVE (NEGATIVE)
[2022-05-02 19:34] LABS: ALBUMIN 3.9 GM/DL (3.2-5.2); ALT/SGPT 17 U/L (12-78); BILIRUBIN,DIRECT < 0.1 MG/DL (0.0-0.2); BILIRUBIN,TOTAL 0.6 MG/DL (0.2-1.0); BLOOD UREA NITROGEN 7 MG/DL (7-18); CALCIUM LEVEL 8.8 MG/DL (8.5-10.1); CARBON DIOXIDE LEVEL 22 MEQ/L (21-32); CHLORIDE LEVEL 109 MEQ/L (98-107); GLOMERULAR FILTRATION RATE > 60.0 (>58); GLUCOSE, FASTING 121 MG/DL (70-100); LIPASE 74 U/L (73-393); POTASSIUM SERUM 4.8 MEQ/L (3.5-5.1); SODIUM LEVEL 138 MEQ/L (136-145)
[2022-05-02] MEDS ORDERED: NS 1,000 ML IV ONE (20:35)
[2022-05-02] MEDS ORDERED: MELOXICAM (MOBIC) 7.5 MG TAB PO SCH (21:00)
[2022-05-02 21:30] LABS: GC DNA AMPLIFICATION NEGATIVE (NEGATIVE)
[2022-05-02] MEDS ORDERED: FLUT1INH2 PO (21:58)
[2022-05-02] MEDS ORDERED: HOME MED LIST COMPLETE! XX SCH (22:00)
[2022-05-02] MEDS ORDERED: MORPHINE 2 MG/ML 1ML VIAL IV PRN (23:20)
[2022-05-02] MEDS ORDERED: ALBUTEROL 90 MCG/ACT 8GM HFA INHALER INH PRN (23:20)
[2022-05-02 23:30] LABS: RSV AMPLIFICATION NEGATIVE (NEGATIVE)
[2022-05-03] VITALS (10 sets, daily range): BP systolic 91–113; BP diastolic 57–76; O2SAT 92–94
[2022-05-03] MEDS: APIXABAN 5 MG TAB (ELIQUIS) PO SCH ×3 (00:44→20:17)
[2022-05-03 00:48] LABS: INR 0.98; PARTIAL THROMBOPLASTIN TIME 27.8 SECONDS (25.9-37.0); PROTHROMBIN TIME 13.4 SECONDS (12.7-14.5)
[2022-05-03] MEDS ORDERED: ONDANSETRON 4MG 2ML VIAL IV PRN (00:55)
[2022-05-03 01:24] LABS: HEMOGLOBIN A1c 4.9 %
[2022-05-03] MEDS: NS 1,000 ML IV SCH ×4 (01:54→21:01)
[2022-05-03 02:00] LABS: AMYLASE 21 U/L (25-115); ETHYL ALCOHOL (ETHANOL) < 0.003 % (0.000-0.010); SALICYLATE LEVEL 2.8 MG/DL (5.0-30.0); THYROID STIMULATING HORMONE 0.803 uIU/ML (0.358-3.740)
[2022-05-03] MEDS: methocarbamoL 750 MG TAB PO PRN ×2 (05:03→20:17)
[2022-05-03 06:30] LABS: HEMATOCRIT 38.9 % (36.0-47.0); HEMOGLOBIN 13.6 g/dl (12.0-15.5); MEAN CORPUSCULAR HEMOGLOBIN 31.6 pg (27.0-33.0); MEAN CORPUSCULAR VOLUME 90.3 fl (80.0-96.0); PLATELET COUNT, AUTOMATED 164 10^3/uL (150-450); RED BLOOD COUNT 4.31 10^6/uL (4.00-5.40)
[2022-05-03 07:00] LABS: ERYTHROCYTE SEDIMENTATION RATE 6 mm/hr (0-20)
[2022-05-03 07:04] LABS: ALBUMIN 3.2 GM/DL (3.2-5.2); ALT/SGPT 15 U/L (12-78); BILIRUBIN,TOTAL 0.7 MG/DL (0.2-1.0); BLOOD UREA NITROGEN 5 MG/DL (7-18); CALCIUM LEVEL 8.3 MG/DL (8.5-10.1); CARBON DIOXIDE LEVEL 24 MEQ/L (21-32); CHLORIDE LEVEL 110 MEQ/L (98-107); CREATININE FOR GFR 0.66 MG/DL (0.55-1.30); GLOMERULAR FILTRATION RATE > 60.0 (>58); GLUCOSE, FASTING 109 MG/DL (70-100); MAGNESIUM LEVEL 1.9 MG/DL (1.8-2.4); POTASSIUM SERUM 3.7 MEQ/L (3.5-5.1); SODIUM LEVEL 138 MEQ/L (136-145); TOTAL PROTEIN 5.7 GM/DL (6.4-8.2)
[2022-05-03] MEDS ORDERED: KETOROLAC 30 MG/ML 1ML VIAL IV PRN (08:05)
[2022-05-03] MEDS ORDERED: NS 1,000 ML IV ONE ×2 (08:30→11:20)
[2022-05-03] MEDS ORDERED: ATORVASTATIN 20 MG TAB PO SCH ×2 (09:00)
[2022-05-03] MEDS ORDERED: FLUTICASONE PROP 0.05% NASAL SPRAY 16 GM (FLONASE) SCH (09:00)
[2022-05-03] MEDS ORDERED: LORATADINE 10 MG TAB PO SCH (09:00)
[2022-05-03] MEDS ORDERED: traMADol 50 MG TAB PO PRN (12:20)
[2022-05-03] MEDS: ADVAIR HFA 230/21MCG INHALER INH SCH ×2 (13:53→19:59)
[2022-05-03] MEDS ORDERED: NORCO, ANEXSIA 5/325MG TABLET (HYDROcodone/ACETAMINOPHEN) PO PRN (20:00)
[2022-05-03] MEDS ORDERED: LIDOCAINE 5% (LIDODERM) PATCH TD SCH (21:00)
[2022-05-03] MEDS ORDERED: METOCLOPRAMIDE INJ 10MG/2ML VIAL (J2765 PER 1) IV ONE (21:00)
[2022-05-04 02:21] VITALS: O2SAT 93
[2022-05-04 05:23] VITALS: BP_SYST 100; BP_SYST 114; BP_DIAS 65; BP_DIAS 70; BP_DIAS 75
[2022-05-04 05:57] VITALS: BP 100/66
[2022-05-04] MEDS: NS 1,000 ML IV SCH (06:01)
[2022-05-04 07:57] LABS: CHOLESTEROL RISK RATIO 5.064 (<5)
[2022-05-04] MEDS ORDERED: **NOTE PATIENT COMMENT** MISC XX SCH (09:00)
[2022-05-05] MEDS ORDERED: RA M10TA PO (05:54)
== END 2022-05-04 07:19 | disposition left against medical advice (07) ==
LOC: M ED 17:31 → EDBD 17:31 → M ED INP 17:32 → ENRESERV 05-03 00:18 → M MSPAV 05-03 01:13
PROVIDERS: ADMIT Family Medicine; ATTEND Internal Medicine
DX: I95.1 Orthostatic hypotension (principal); R10.9 Unspecified abdominal pain; R31.29 Other microscopic hematuria; G47.30 Sleep apnea, unspecified; J44.9 Chronic obstructive pulmonary disease, unspecified; E78.5 Hyperlipidemia, unspecified; M79.7 Fibromyalgia; F41.9 Anxiety disorder, unspecified; F32.A Depression, unspecified; R91.8 Other nonspecific abnormal finding of lung field; K21.9 Gastro-esophageal reflux disease without esophagitis; Z79.01 Long term (current) use of anticoagulants; Z79.899 Other long term (current) drug therapy; Z86.718 Personal history of other venous thrombosis and embolism; Z88.8 Allergy status to other drugs, medicaments and biological substances; Z88.0 Allergy status to penicillin; F17.210 Nicotine dependence, cigarettes, uncomplicated
CPT/HCPCS: 36415; 70450; 71046; 72125; 74177; 76775; 76856; 80047; 80048; 80053; 80061; 80076; 80179; 81000; 81015; 82077; 82150; 82550; 83036; 83605; 83690; 83735; 84443; 84703; 85025; 85027; 85610; 85652; 85730; 86140; 87631; 87810; 87850; 93005; 93041; 93976; 94640; 96361; 96374; 96375; 96376; 97161; 99285; J2270; J2405; J2765; Q9967

== ENCOUNTER 2022-05-04 21:47 | Observation (INO) | payer OTHER ==
[~2022-05-04] VITALS: Ht 165.1 cm; Wt 102.3 kg
[~2022-05-04 21:47] MED LIST changes: +FLUT1INH2 PO
[2022-05-04 22:48] LABS: BASO % 0.4 % (0.0-1.0); EOS # 0.1 10^3/uL (0.0-0.5); HEMATOCRIT 39.4 % (36.0-47.0); HEMOGLOBIN 13.8 g/dl (12.0-15.5); LYMPH # 1.9 10^3/uL (1.5-5.0); LYMPH % 26.4 % (24.0-44.0); MEAN CORPUSCULAR HEMOGLOBIN 31.6 pg (27.0-33.0); MEAN CORPUSCULAR VOLUME 90.2 fl (80.0-96.0); MONO # 0.3 10^3/uL (0.0-0.8); MONO % 4.6 % (2.0-8.0); NEUTROPHILS # 4.8 10^3/uL (1.5-8.5); NEUTROPHILS % 67.3 % (36.0-66.0); PLATELET COUNT, AUTOMATED 178 10^3/uL (150-450); RED BLOOD COUNT 4.37 10^6/uL (4.00-5.40); WHITE BLOOD COUNT 7.1 10^3/uL (4.0-10.0)
[2022-05-04 23:12] LABS: HCG, SERUM QUALITATIVE NEGATIVE (NEGATIVE)
[2022-05-04 23:21] LABS: BLOOD UREA NITROGEN 3 MG/DL (7-18); CALCIUM LEVEL 8.7 MG/DL (8.5-10.1); CARBON DIOXIDE LEVEL 25 MEQ/L (21-32); CHLORIDE LEVEL 108 MEQ/L (98-107); CREATININE FOR GFR 0.76 MG/DL (0.55-1.30); GLOMERULAR FILTRATION RATE > 60.0 (>58); GLUCOSE, FASTING 121 MG/DL (70-100); SODIUM LEVEL 139 MEQ/L (136-145)
[2022-05-04 23:22] LABS: POTASSIUM SERUM 3.6 MEQ/L (3.5-5.1)
[2022-05-04] MEDS ORDERED: METOCLOPRAMIDE INJ 10MG/2ML VIAL (J2765 PER 1) IV ONE (23:45)
[2022-05-04] MEDS ORDERED: KETOROLAC 30 MG/ML 1ML VIAL IV ONE (23:45)
[2022-05-04] MEDS ORDERED: NS 1,000 ML IV ONE (23:45)
[2022-05-05] MEDS ORDERED: LIDOCAINE 5% (LIDODERM) PATCH TD ONE
[2022-05-05 00:20] LABS: APPEARANCE, URINE MANUAL CLEAR (CLEAR); COLOR, URINE MANUAL YELLOW (YELLOW)
[2022-05-05 00:23] LABS: BILIRUBIN, URINE MANUAL NEGATIVE (NEGATIVE); BLOOD URINE MANUAL POSITIVE (NEGATIVE); GLUCOSE, URINE (UA) MANUAL NEGATIVE (NEGATIVE); KETONE, URINE MANUAL NEGATIVE (NEGATIVE); LEUKOCYTE ESTERASE, URINE MAN NEGATIVE (NEGATIVE); NITRITE, URINE MANUAL NEGATIVE (NEGATIVE); PROTEIN, URINE MANUAL NEGATIVE (NEGATIVE); UROBILINOGEN, URINE MANUAL NORMAL (NORMAL)
[2022-05-05 00:23] LABS: FREE THYROXINE INDEX 2.8 % (1.3-4.8); T UPTAKE 30 % (30-39); THYROXINE (T4) 9.3 UG/DL (4.5-12.0)
[2022-05-05] MEDS ORDERED: ONDANSETRON 4MG 2ML VIAL IV ONE (00:30)
[2022-05-05 00:32] LABS: BACTERIA, URINE SMALL AMOUNT; HYALINE CAST, URINE NONE SEEN /lpf (0-1); MUCUS, URINE SMALL AMOUNT (NEGATIVE); SQUAMOUS EPITHELIAL CELL URINE SMALL AMOUNT /hpf (SMALL AMT); WBC, URINE 0-1 /hpf (0-3)
[2022-05-05] MEDS ORDERED: KETOROLAC 30 MG/ML 1ML VIAL IV PRN (04:55)
[2022-05-05] MEDS ORDERED: ONDANSETRON 4MG 2ML VIAL IV PRN (04:55)
[2022-05-05] MEDS ORDERED: NS 1,000 ML IV SCH (04:55)
[2022-05-05] MEDS ORDERED: traMADol 50 MG TAB PO PRN (04:55)
[2022-05-05 05:04] LABS: RSV AMPLIFICATION NEGATIVE (NEGATIVE)
[2022-05-05] MEDS ORDERED: HOME MED LIST COMPLETE! XX SCH (05:50)
[2022-05-05] MEDS ORDERED: RA M10TA PO (05:54)
[2022-05-05] MEDS: METOCLOPRAMIDE INJ 10MG/2ML VIAL (J2765 PER 1) IV SCH ×2 (05:55→12:37)
[2022-05-05] MEDS ORDERED: ALBUTEROL 90 MCG/ACT 8GM HFA INHALER INH PRN (06:15)
[2022-05-05 08:34] LABS: HEMATOCRIT 36.3 % (36.0-47.0); HEMOGLOBIN 13.2 g/dl (12.0-15.5); MEAN CORPUSCULAR HEMOGLOBIN 32.2 pg (27.0-33.0); MEAN CORPUSCULAR HGB CONC 36.4 g/dl (32.0-36.5); MEAN CORPUSCULAR VOLUME 88.5 fl (80.0-96.0); PLATELET COUNT, AUTOMATED 151 10^3/uL (150-450); WHITE BLOOD COUNT 4.3 10^3/uL (4.0-10.0)
[2022-05-05 08:52] LABS: INR 1.05; PROTHROMBIN TIME 13.9 SECONDS (12.5-14.5)
[2022-05-05 08:53] LABS: PARTIAL THROMBOPLASTIN TIME 30.3 SECONDS (24.8-34.2)
[2022-05-05 08:55] LABS: D-DIMER QUANT 496.15 ng/ml (<500)
[2022-05-05] MEDS ORDERED: FLUTICASONE PROP 0.05% NASAL SPRAY 16 GM (FLONASE) SCH (09:00)
[2022-05-05] MEDS ORDERED: APIXABAN 5 MG TAB (ELIQUIS) PO SCH (09:00)
[2022-05-05] MEDS ORDERED: PANTOPRAZOLE 40MG VIAL IV SCH (09:00)
[2022-05-05] MEDS ORDERED: ATORVASTATIN 20 MG TAB PO SCH (09:00)
[2022-05-05 09:13] LABS: ALBUMIN 3.3 GM/DL (3.2-5.2); ALT/SGPT 14 U/L (12-78); BILIRUBIN,TOTAL 0.8 MG/DL (0.2-1.0); BLOOD UREA NITROGEN 3 MG/DL (7-18); CALCIUM LEVEL 8.2 MG/DL (8.5-10.1); CARBON DIOXIDE LEVEL 24 MEQ/L (21-32); CHLORIDE LEVEL 111 MEQ/L (98-107); CREATININE FOR GFR 0.66 MG/DL (0.55-1.30); GLOMERULAR FILTRATION RATE > 60.0 (>58); GLUCOSE, FASTING 98 MG/DL (70-100); LIPASE 74 U/L (73-393); MAGNESIUM LEVEL 1.7 MG/DL (1.8-2.4); POTASSIUM SERUM 3.5 MEQ/L (3.5-5.1); SODIUM LEVEL 139 MEQ/L (136-145); TOTAL PROTEIN 5.6 GM/DL (6.4-8.2)
[2022-05-05] MEDS ORDERED: BACLOFEN 10 MG TAB GT ONE (10:00)
[2022-05-05] MEDS ORDERED: PILL CUTTER 1 EACH XX PRN (10:00)
[2022-05-05] MEDS ORDERED: **NOTE PATIENT COMMENT** MISC XX SCH ×2 (12:00→21:00)
[2022-05-05] MEDS ORDERED: INFLUENZA QUADRIVALENT PF VACCINE 0.5ML SYRINGE IM.IMMUN ONE (12:00)
[2022-05-05 13:16] VITALS: BP 106/69
[2022-05-05] MEDS ORDERED: LIDOCAINE 5% (LIDODERM) PATCH TD SCH (21:00)
== END 2022-05-05 15:23 | disposition home or self-care (01) ==
LOC: M ED 21:47 → M ED INP 21:48 → ENRESERV 05-05 12:32 → M MSPAV 05-05 13:16
PROVIDERS: ADMIT Family Medicine; ATTEND Internal Medicine
DX: I95.1 Orthostatic hypotension (principal); R10.9 Unspecified abdominal pain; M54.9 Dorsalgia, unspecified; R31.29 Other microscopic hematuria; D64.9 Anemia, unspecified; M79.7 Fibromyalgia; F41.9 Anxiety disorder, unspecified; F32.A Depression, unspecified; R91.8 Other nonspecific abnormal finding of lung field; K21.9 Gastro-esophageal reflux disease without esophagitis; G47.30 Sleep apnea, unspecified; J44.9 Chronic obstructive pulmonary disease, unspecified; Z79.01 Long term (current) use of anticoagulants; Z88.8 Allergy status to other drugs, medicaments and biological substances; Z79.899 Other long term (current) drug therapy; Z88.0 Allergy status to penicillin
CPT/HCPCS: 36415; 72110; 74176; 76376; 76856; 80048; 80053; 81000; 83036; 83690; 83735; 84436; 84443; 84479; 84703; 85025; 85027; 85379; 85610; 85730; 87631; 93005; 93306; 93356; 93976; 96374; 96375; 96376; 97161; 99285; C9113; J1885; J2405; J2765

== ENCOUNTER 2022-05-11 01:51 | Emergency (ER) | payer OTHER ==
[~2022-05-11] VITALS: Ht 165.1 cm; Wt 102.3 kg
[~2022-05-11 01:51] MED LIST changes: +RA M10TA PO
[2022-05-11 02:31] VITALS: BP 133/70
[2022-05-11 02:33] LABS: BASO % 0.5 % (0.0-1.0); EOS # 0.1 10^3/uL (0.0-0.5); HEMATOCRIT 41.9 % (36.0-47.0); LYMPH # 2.6 10^3/uL (1.5-5.0); LYMPH % 30.9 % (24.0-44.0); MEAN CORPUSCULAR HEMOGLOBIN 31.7 pg (27.0-33.0); MEAN CORPUSCULAR HGB CONC 35.8 g/dl (32.0-36.5); MEAN CORPUSCULAR VOLUME 88.6 fl (80.0-96.0); MONO # 0.4 10^3/uL (0.0-0.8); MONO % 5.1 % (2.0-8.0); NEUTROPHILS # 5.2 10^3/uL (1.5-8.5); NEUTROPHILS % 62.3 % (36.0-66.0); PLATELET COUNT, AUTOMATED 197 10^3/uL (150-450); RED BLOOD COUNT 4.73 10^6/uL (4.00-5.40); WHITE BLOOD COUNT 8.4 10^3/uL (4.0-10.0)
[2022-05-11 03:04] LABS: INR 0.92; PROTHROMBIN TIME 12.6 SECONDS (12.5-14.5)
[2022-05-11 03:15] LABS: CPK CREATINE PHOSPHOKINASE 43 U/L (26-192)
[2022-05-11 03:16] LABS: HCG, SERUM QUALITATIVE NEGATIVE (NEGATIVE)
[2022-05-11 03:21] LABS: ALBUMIN 3.9 GM/DL (3.2-5.2); ALT/SGPT 18 U/L (12-78); BILIRUBIN,DIRECT 0.2 MG/DL (0.0-0.2); BILIRUBIN,TOTAL 0.5 MG/DL (0.2-1.0); BLOOD UREA NITROGEN 10 MG/DL (7-18); CALCIUM LEVEL 8.4 MG/DL (8.5-10.1); CARBON DIOXIDE LEVEL 22 MEQ/L (21-32); CHLORIDE LEVEL 108 MEQ/L (98-107); CREATININE FOR GFR 0.83 MG/DL (0.55-1.30); GLOMERULAR FILTRATION RATE > 60.0 (>58); GLUCOSE, FASTING 112 MG/DL (70-100); LIPASE 110 U/L (73-393); NT-PRO BNP 14 PG/ML (<125); POTASSIUM SERUM 3.7 MEQ/L (3.5-5.1); SODIUM LEVEL 137 MEQ/L (136-145); TOTAL PROTEIN 6.9 GM/DL (6.4-8.2)
[2022-05-11 05:38] LABS: CPK CREATINE PHOSPHOKINASE 38 U/L (26-192)
[2022-05-11] MEDS ORDERED: predniSONE 20 MG TAB PO ONE (06:50)
[2022-05-11] MEDS ORDERED: PRED10TA2 PO (06:52)
== END 2022-05-11 07:51 | disposition home or self-care (01) ==
LOC: M ED 01:51
DX: J44.1 Chronic obstructive pulmonary disease with (acute) exacerbation (principal); H65.02 Acute serous otitis media, left ear; K21.9 Gastro-esophageal reflux disease without esophagitis; R56.9 Unspecified convulsions; Z86.73 Personal history of transient ischemic attack (TIA), and cerebral infarction without residual deficits; M79.7 Fibromyalgia; M54.50 Low back pain, unspecified; F43.10 Post-traumatic stress disorder, unspecified; F20.9 Schizophrenia, unspecified; Z90.710 Acquired absence of both cervix and uterus; F17.210 Nicotine dependence, cigarettes, uncomplicated; Z88.0 Allergy status to penicillin; Z88.1 Allergy status to other antibiotic agents; Z88.2 Allergy status to sulfonamides; Z88.6 Allergy status to analgesic agent; Z88.8 Allergy status to other drugs, medicaments and biological substances; Z79.899 Other long term (current) drug therapy; Z79.01 Long term (current) use of anticoagulants; Z79.51 Long term (current) use of inhaled steroids
CPT/HCPCS: 36415; 71046; 80048; 80076; 82550; 83690; 83880; 84443; 84703; 85025; 85610; 87486; 87581; 87633; 87798; 93005; 99284; J7512

== ENCOUNTER → 2022-06-02 | Outpatient (CLI) | payer OTHER ==
[~2022-06-02] MED LIST changes: +NEOM1SOL13; +PRED10TA2 PO
== END ==
LOC: M LABSMTC 10:15
PROVIDERS: ATTEND Anesthesiology
DX: Z01.812 Encounter for preprocedural laboratory examination (principal); Z20.822 Contact with and (suspected) exposure to COVID-19

== ENCOUNTER 2022-06-05 09:50 | Day surgery (SDC) | payer OTHER ==
[~2022-06-05] VITALS: Ht 165.1 cm; Wt 98.9 kg
[~2022-06-05 09:50] MED LIST changes: +LR 1,000 ML IV SCH
[2022-06-05 10:26] LABS: HEMATOCRIT 41.2 % (36.0-47.0); HEMOGLOBIN 14.4 g/dl (12.0-15.5); MEAN CORPUSCULAR HEMOGLOBIN 31.6 pg (27.0-33.0); MEAN CORPUSCULAR VOLUME 90.4 fl (80.0-96.0); PLATELET COUNT, AUTOMATED 167 10^3/uL (150-450); RED BLOOD COUNT 4.56 10^6/uL (4.00-5.40); WHITE BLOOD COUNT 5.7 10^3/uL (4.0-10.0)
[2022-06-05] MEDS ORDERED: propofoL 200 MG/20 ML VIAL As Ordered ONE (12:44)
[2022-06-05] MEDS ORDERED: LIDOCAINE 2% 100MG/5ML SDV (FOR ANES.) As Ordered ONE (12:44)
[2022-06-05] MEDS ORDERED: MIDAZOLAM INJ 2MG/2ML VIAL (J2250 PER 1MG) As Ordered ONE (13:26)
[2022-06-05] MEDS ORDERED: dexameTHASONE 4 MG/ML 1ML VIAL (J1100 PER 1MG) As Ordered ONE (13:26)
[2022-06-05] MEDS ORDERED: ROCURONIUM BROMIDE 50 MG/5 ML VIAL As Ordered ONE (13:26)
[2022-06-05] MEDS ORDERED: fentaNYL 100 MCG/2 ML INJECTION As Ordered ONE ×2 (13:26→14:19)
[2022-06-05] MEDS ORDERED: OXYC-517 PO (13:31)
[2022-06-05] MEDS ORDERED: ONDANSETRON 4MG 2ML VIAL As Ordered ONE (13:53)
[2022-06-05] MEDS ORDERED: BUPIVACAINE HCL 0.25% 10ML VIAL As Ordered ONE (14:02)
[2022-06-05] MEDS ORDERED: SUGAMMADEX SODIUM 500 MG/5 ML VIAL (BRIDION) As Ordered ONE (14:16)
[2022-06-05] MEDS ORDERED: METOPROLOL 5 MG/5 ML VIAL As Ordered ONE (14:22)
[2022-06-05] MEDS ORDERED: fentaNYL 100 MCG/2 ML INJECTION IV PRN (14:35)
[2022-06-05] MEDS ORDERED: ONDANSETRON 4MG 2ML VIAL IV PRN (14:35)
[2022-06-05] MEDS ORDERED: LR 1,000 ML IV SCH ×2 (14:35→15:20)
[2022-06-05] MEDS ORDERED: MORPHINE 2 MG/ML 1ML VIAL IV PRN (14:35)
[2022-06-05] MEDS ORDERED: oxyCODONE 5MG TAB PO PRN (15:25)
[2022-06-05] MEDS ORDERED: METOCLOPRAMIDE INJ 10MG/2ML VIAL (J2765 PER 1) IV PRN (15:35)
[2022-06-05] MEDS: oxyCODONE 5MG TAB PO PRN ×2 (15:36→16:04)
[2022-06-05 17:40] VITALS: BP 108/53
[2022-06-06] MEDS ORDERED: ONDA4TAB6 PO (20:21)
== END 2022-06-05 13:40 | disposition home or self-care (01) ==
LOC: M SDC 09:50
PROVIDERS: ATTEND Specialist
DX: N83.201 Unspecified ovarian cyst, right side (principal); N83.10 Corpus luteum cyst of ovary, unspecified side; N83.00 Follicular cyst of ovary, unspecified side; R10.2 Pelvic and perineal pain; K21.9 Gastro-esophageal reflux disease without esophagitis; D64.9 Anemia, unspecified; F41.9 Anxiety disorder, unspecified; F32.A Depression, unspecified; F43.10 Post-traumatic stress disorder, unspecified; I73.9 Peripheral vascular disease, unspecified; E78.5 Hyperlipidemia, unspecified; E11.9 Type 2 diabetes mellitus without complications; Z79.899 Other long term (current) drug therapy; F17.210 Nicotine dependence, cigarettes, uncomplicated; F14.11 Cocaine abuse, in remission; J44.9 Chronic obstructive pulmonary disease, unspecified; G40.909 Epilepsy, unspecified, not intractable, without status epilepticus; F20.0 Paranoid schizophrenia; Z79.51 Long term (current) use of inhaled steroids; Z88.0 Allergy status to penicillin; Z88.2 Allergy status to sulfonamides; Z88.8 Allergy status to other drugs, medicaments and biological substances
CPT/HCPCS: 36415; 58661; 85027; 86850; 86900; 86901; 88305; J1100; J2250; J2405; J2765; J3010

== ENCOUNTER 2022-06-06 00:12 | Emergency (ER) | payer OTHER ==
[~2022-06-06] VITALS: Ht 165.1 cm; Wt 95.5 kg
[~2022-06-06 00:12] MED LIST changes: -LR 1,000 ML IV SCH
[2022-06-06 00:19] VITALS: BP 133/79
[2022-06-06] MEDS ORDERED: ONDA4TAB6 PO (20:21)
== END 2022-06-06 00:34 | disposition left against medical advice (07) ==
LOC: M ED 00:12 → EDBD 00:12 → M ED 00:34
DX: Z53.21 Procedure and treatment not carried out due to patient leaving prior to being seen by health care provider (principal)

== ENCOUNTER 2022-08-10 20:50 | Emergency (ER) | payer OTHER ==
[~2022-08-10] VITALS: Ht 165.1 cm; Wt 102.2 kg
[2022-08-10 21:16] VITALS: BP 116/68
[2022-08-10] MEDS ORDERED: METF500T13 PO (21:31)
== END 2022-08-11 01:35 | disposition left against medical advice (07) ==
LOC: EDBD 20:50 → M ED 20:50
DX: Z53.21 Procedure and treatment not carried out due to patient leaving prior to being seen by health care provider (principal)

== ENCOUNTER 2022-08-20 20:35 | Emergency (ER) | payer OTHER ==
[~2022-08-20] VITALS: Ht 165.1 cm; Wt 96.6 kg
[~2022-08-20 20:35] MED LIST changes: +METF500T13 PO
[2022-08-20] MEDS ORDERED: MORPHINE 4 MG/ML 1ML VIAL IV ONE (21:25)
[2022-08-20 21:56] LABS: BASO % 0.7 % (0.0-1.0); EOS # 0.1 10^3/uL (0.0-0.5); EOS % 1.4 % (0.0-3.0); HEMATOCRIT 44.1 % (36.0-47.0); HEMOGLOBIN 16.1 g/dl (12.0-15.5); LYMPH # 1.7 10^3/uL (1.5-5.0); LYMPH % 28.7 % (24.0-44.0); MEAN CORPUSCULAR HGB CONC 36.5 g/dl (32.0-36.5); MEAN CORPUSCULAR VOLUME 87.7 fl (80.0-96.0); MONO # 0.4 10^3/uL (0.0-0.8); MONO % 6.6 % (2.0-8.0); NEUTROPHILS # 3.6 10^3/uL (1.5-8.5); NEUTROPHILS % 62.4 % (36.0-66.0); PLATELET COUNT, AUTOMATED 181 10^3/uL (150-450); RED BLOOD COUNT 5.03 10^6/uL (4.00-5.40); WHITE BLOOD COUNT 5.7 10^3/uL (4.0-10.0)
[2022-08-20] MEDS ORDERED: ONDANSETRON 4MG 2ML VIAL IV ONE (22:00)
[2022-08-20 22:19] LABS: LIPASE 34 U/L (12-53)
[2022-08-20 22:20] LABS: BILIRUBIN,DIRECT 0.2 MG/DL (<0.4)
[2022-08-20 22:21] LABS: ALBUMIN 4.3 G/DL (3.2-5.2); ALKALINE PHOSPHATASE 72 U/L (46-116); ALT/SGPT 15 U/L (7.0-40); AST/SGOT 25 U/L (<34); BILIRUBIN,TOTAL 0.9 MG/DL (0.3-1.2); BLOOD UREA NITROGEN 11 MG/DL (9-23); CALCIUM LEVEL 8.9 MG/DL (8.5-10.1); CARBON DIOXIDE LEVEL 22 MMOL/L (20-31); CHLORIDE LEVEL 107 MMOL/L (98-107); CREATININE FOR GFR 0.72 MG/DL (0.55-1.30); GLOMERULAR FILTRATION RATE > 60.0 (>58); GLUCOSE, FASTING 103 MG/DL (60-100); POTASSIUM SERUM 4.5 MMOL/L (3.5-5.1); SODIUM LEVEL 136 MMOL/L (136-145); TOTAL PROTEIN 7.5 G/DL (5.7-8.2)
[2022-08-20] MEDS ORDERED: ISOVUE-370 76% 100ML VIAL As Ordered ONE (22:27)
[2022-08-20 23:53] VITALS: BP 117/74
== END 2022-08-20 23:55 | disposition home or self-care (01) ==
LOC: M ED 20:35
DX: N83.202 Unspecified ovarian cyst, left side (principal); F43.10 Post-traumatic stress disorder, unspecified; F20.0 Paranoid schizophrenia; M51.36 Other intervertebral disc degeneration, lumbar region; G40.89 Other seizures; K58.9 Irritable bowel syndrome, unspecified; F17.200 Nicotine dependence, unspecified, uncomplicated; Z86.718 Personal history of other venous thrombosis and embolism; Z88.0 Allergy status to penicillin; Z88.1 Allergy status to other antibiotic agents; Z88.2 Allergy status to sulfonamides; Z88.6 Allergy status to analgesic agent; Z88.8 Allergy status to other drugs, medicaments and biological substances; Z79.52 Long term (current) use of systemic steroids; Z79.01 Long term (current) use of anticoagulants; Z79.899 Other long term (current) drug therapy; Z79.4 Long term (current) use of insulin
CPT/HCPCS: 51701; 74177; 80048; 80076; 81000; 81015; 83605; 83690; 85025; 93041; 96374; 96375; 99284; J2405

== ENCOUNTER 2022-08-24 12:32 | Emergency (ER) | payer OTHER ==
[~2022-08-24] VITALS: Ht 165.1 cm; Wt 92.8 kg
[2022-08-24] MEDS ORDERED: MORPHINE 4 MG/ML 1ML VIAL IV ONE (13:45)
[2022-08-24 13:46] LABS: BASO % 0.5 % (0.0-1.0); EOS # 0.1 10^3/uL (0.0-0.5); EOS % 1.4 % (0.0-3.0); HEMATOCRIT 41.7 % (36.0-47.0); HEMOGLOBIN 15.1 g/dl (12.0-15.5); LYMPH # 3.3 10^3/uL (1.5-5.0); MEAN CORPUSCULAR HEMOGLOBIN 32.1 pg (27.0-33.0); MEAN CORPUSCULAR HGB CONC 36.2 g/dl (32.0-36.5); MEAN CORPUSCULAR VOLUME 88.7 fl (80.0-96.0); MONO # 0.5 10^3/uL (0.0-0.8); MONO % 5.7 % (2.0-8.0); NEUTROPHILS # 4.5 10^3/uL (1.5-8.5); NEUTROPHILS % 53.2 % (36.0-66.0); PLATELET COUNT, AUTOMATED 199 10^3/uL (150-450); WHITE BLOOD COUNT 8.4 10^3/uL (4.0-10.0)
[2022-08-24 14:13] LABS: CK-MB VALUE MASS < 1.0 NG/ML (<3.6)
[2022-08-24 14:15] LABS: BLOOD UREA NITROGEN 8 MG/DL (9-23); CALCIUM LEVEL 8.8 MG/DL (8.5-10.1); CARBON DIOXIDE LEVEL 23 MMOL/L (20-31); CHLORIDE LEVEL 108 MMOL/L (98-107); CPK CREATINE PHOSPHOKINASE 37 U/L (34-145); CREATININE FOR GFR 0.76 MG/DL (0.55-1.30); GLOMERULAR FILTRATION RATE > 60.0 (>58); GLUCOSE, FASTING 97 MG/DL (60-100); POTASSIUM SERUM 3.5 MMOL/L (3.5-5.1); SODIUM LEVEL 139 MMOL/L (136-145)
[2022-08-24] MEDS ORDERED: ISOVUE-370 76% 100ML VIAL As Ordered ONE (14:37)
[2022-08-24] MEDS ORDERED: ACETAMINOPHEN TAB 650MG DOSE (2X325MG) PO ONE (15:55)
[2022-08-24] MEDS ORDERED: diphenhydrAMINE 50MG CAP PO ONE (15:55)
[2022-08-24 16:17] LABS: CK-MB VALUE MASS < 1.0 NG/ML (<3.6); CPK CREATINE PHOSPHOKINASE 36 U/L (34-145); MB/CK RELATIVE INDEX 2.77 (< OR =4)
[2022-08-24 16:32] VITALS: O2SAT 100
[2022-08-24 16:48] VITALS: BP 132/72
== END 2022-08-24 16:57 | disposition home or self-care (01) ==
LOC: M ED 12:32
DX: S20.20XA Contusion of thorax, unspecified, initial encounter (principal); W01.0XXA Fall on same level from slipping, tripping and stumbling without subsequent striking against object, initial encounter; F20.9 Schizophrenia, unspecified; F43.10 Post-traumatic stress disorder, unspecified; F17.200 Nicotine dependence, unspecified, uncomplicated; Z86.718 Personal history of other venous thrombosis and embolism; Z88.0 Allergy status to penicillin; Z88.1 Allergy status to other antibiotic agents; Z88.2 Allergy status to sulfonamides; Z88.8 Allergy status to other drugs, medicaments and biological substances; Z79.01 Long term (current) use of anticoagulants; Z79.52 Long term (current) use of systemic steroids; Z79.4 Long term (current) use of insulin; Z79.899 Other long term (current) drug therapy

== ENCOUNTER 2022-08-24 22:20 | Emergency (ER) | payer OTHER ==
[~2022-08-24] VITALS: Ht 165.1 cm; Wt 98.2 kg
[2022-08-24 22:21] VITALS: BP 128/69
== END 2022-08-25 01:06 | disposition left against medical advice (07) ==
LOC: M ED 22:20
DX: Z53.21 Procedure and treatment not carried out due to patient leaving prior to being seen by health care provider (principal)

== ENCOUNTER → 2022-08-24 | Outpatient (CLI) | payer OTHER | LOC: M PAIN 08:00 | PROVIDERS: ATTEND Nurse Practitioner Family | DX: M54.50 Low back pain, unspecified (principal); G89.29 Other chronic pain; E11.9 Type 2 diabetes mellitus without complications; F17.210 Nicotine dependence, cigarettes, uncomplicated; Z86.711 Personal history of pulmonary embolism; Z86.718 Personal history of other venous thrombosis and embolism; Z88.0 Allergy status to penicillin; Z88.1 Allergy status to other antibiotic agents; Z88.6 Allergy status to analgesic agent; Z88.8 Allergy status to other drugs, medicaments and biological substances; Z79.01 Long term (current) use of anticoagulants; Z79.84 Long term (current) use of oral hypoglycemic drugs; Z79.899 Other long term (current) drug therapy ==

== ENCOUNTER → 2022-08-26 | Outpatient (CLI) | payer OTHER ==
[2022-08-26 15:00] LABS: APPEARANCE, URINE MANUAL CLEAR (CLEAR); BILIRUBIN, URINE MANUAL NEGATIVE (NEGATIVE); BLOOD URINE MANUAL TRACE (NEGATIVE); COLOR, URINE MANUAL YELLOW (YELLOW); GLUCOSE, URINE (UA) MANUAL NEGATIVE (NEGATIVE); KETONE, URINE MANUAL NEGATIVE (NEGATIVE); LEUKOCYTE ESTERASE, URINE MAN NEGATIVE (NEGATIVE); NITRITE, URINE MANUAL NEGATIVE (NEGATIVE); PH,URINE MAN 5.5 UNITS (5.0 - 7.0); PROTEIN, URINE MANUAL TRACE mg/dL (NEGATIVE); UROBILINOGEN, URINE MANUAL NORMAL (NORMAL)
[2022-08-26 15:03] LABS: CHOLESTEROL RISK RATIO 5.46 (<5); HDL CHOLESTEROL 33.3 MG/DL (>40); LDL CHOLESTEROL 110.1 MG/DL (<100)
[2022-08-26 15:18] LABS: BACTERIA, URINE SMALL AMOUNT; HYALINE CAST, URINE NONE SEEN /lpf (0-1); MUCUS, URINE SMALL AMOUNT (NEGATIVE); SQUAMOUS EPITHELIAL CELL URINE SMALL AMOUNT /hpf (SMALL AMT); WBC, URINE 0-1 /hpf (0-3)
[2022-08-26 16:13] LABS: HEMOGLOBIN A1c 4.5 % (4.0-6.0)
== END ==
LOC: M PLALAB 10:04
PROVIDERS: ATTEND Physician Assistant Medical
DX: R31.29 Other microscopic hematuria (principal); E11.9 Type 2 diabetes mellitus without complications

== ENCOUNTER 2022-09-04 12:59 | Emergency (ER) | payer OTHER ==
[~2022-09-04] VITALS: Ht 165.1 cm; Wt 100.0 kg
[2022-09-04 13:00] VITALS: BP 125/74
== END 2022-09-04 16:00 | disposition left against medical advice (07) ==
LOC: M ED 12:59
DX: Z53.21 Procedure and treatment not carried out due to patient leaving prior to being seen by health care provider (principal)

== ENCOUNTER → 2022-09-16 | Outpatient (CLI) | payer OTHER ==
[2022-09-16 13:56] LABS: BLOOD UREA NITROGEN 10 MG/DL (9-23); CALCIUM LEVEL 9.8 MG/DL (8.5-10.1); CARBON DIOXIDE LEVEL 26 MMOL/L (20-31); CHLORIDE LEVEL 106 MMOL/L (98-107); CREATININE FOR GFR 0.77 MG/DL (0.55-1.30); GLOMERULAR FILTRATION RATE > 60.0 (>58); GLUCOSE, FASTING 89 MG/DL (60-100); POTASSIUM SERUM 4.6 MMOL/L (3.5-5.1); SODIUM LEVEL 140 MMOL/L (136-145)
== END ==
LOC: M PLALAB 08:07
PROVIDERS: ATTEND Nurse Practitioner Women's Health
DX: Z01.812 Encounter for preprocedural laboratory examination (principal); Z12.39 Encounter for other screening for malignant neoplasm of breast; Z80.3 Family history of malignant neoplasm of breast; Z91.89 Other specified personal risk factors, not elsewhere classified

== ENCOUNTER 2022-09-17 05:59 | Emergency (ER) | payer OTHER ==
[~2022-09-17] VITALS: Ht 165.1 cm; Wt 90.9 kg
[2022-09-17 06:31] LABS: BASO % 0.5 % (0.0-1.0); EOS # 0.1 10^3/uL (0.0-0.5); EOS % 1.4 % (0.0-3.0); HEMATOCRIT 41.3 % (36.0-47.0); HEMOGLOBIN 14.7 g/dl (12.0-15.5); LYMPH # 2.9 10^3/uL (1.5-5.0); LYMPH % 43.8 % (24.0-44.0); MEAN CORPUSCULAR HEMOGLOBIN 31.7 pg (27.0-33.0); MEAN CORPUSCULAR HGB CONC 35.6 g/dl (32.0-36.5); MONO # 0.5 10^3/uL (0.0-0.8); MONO % 6.9 % (2.0-8.0); NEUTROPHILS # 3.1 10^3/uL (1.5-8.5); NEUTROPHILS % 47.2 % (36.0-66.0); PLATELET COUNT, AUTOMATED 174 10^3/uL (150-450); RED BLOOD COUNT 4.64 10^6/uL (4.00-5.40); WHITE BLOOD COUNT 6.6 10^3/uL (4.0-10.0)
[2022-09-17 06:37] LABS: ABG pH (ARTERIAL) 7.466 UNITS (7.350-7.450)
[2022-09-17 06:38] LABS: ABG BASE EXCESS -1.4 (-2.0-2.0); ABG O2 SATURATION 98.2 % (95.0-99.0); ABG PARTIAL PRESSURE CO2 29.8 mmHg (35.0-45.0); ABG PARTIAL PRESSURE O2 115.3 mmHg (75.0-100.0); ABG STANDARD HCO3 23.3 MEQ/L (22.0-26.0); ABG TOTAL CO2 21.9 MEQ/L (22.0-29.0)
[2022-09-17 06:41] LABS: INR 0.91; PROTHROMBIN TIME 12.5 SECONDS (12.5-14.5)
[2022-09-17 07:16] LABS: HCG, SERUM QUALITATIVE NEGATIVE (NEGATIVE)
[2022-09-17] MEDS ORDERED: ALBUTEROL SULFATE 2.5MG/0.5ML INH NEB SOLN INH ONE ×2 (07:35→12:05)
[2022-09-17] MEDS ORDERED: IPRATROPIUM 0.5MG/ALBUTEROL 2.5MG INH SOL UD 3ML (DUONEB) NEB ONE (07:35)
[2022-09-17 07:38] LABS: CK-MB VALUE MASS < 1.0 NG/ML (<3.6); THYROID STIMULATING HORMONE 2.059 uIU/ML (0.55-4.78); THYROXINE (T4) 11.2 UG/DL (4.5-10.9)
[2022-09-17 07:42] LABS: CPK CREATINE PHOSPHOKINASE 37 U/L (34-145)
[2022-09-17 07:47] LABS: ALBUMIN 3.7 G/DL (3.2-5.2); ALKALINE PHOSPHATASE 63 U/L (46-116); ALT/SGPT 11 U/L (7.0-40); AST/SGOT 8 U/L (<34); BILIRUBIN,DIRECT 0.1 MG/DL (<0.4); BILIRUBIN,TOTAL 0.5 MG/DL (0.3-1.2); BLOOD UREA NITROGEN 7 MG/DL (9-23); CALCIUM LEVEL 8.9 MG/DL (8.5-10.1); CARBON DIOXIDE LEVEL 20 MMOL/L (20-31); CHLORIDE LEVEL 108 MMOL/L (98-107); CREATININE FOR GFR 0.72 MG/DL (0.55-1.30); GLOMERULAR FILTRATION RATE > 60.0 (>58); GLUCOSE, FASTING 114 MG/DL (60-100); POTASSIUM SERUM 3.5 MMOL/L (3.5-5.1); SODIUM LEVEL 137 MMOL/L (136-145); TOTAL PROTEIN 6.2 G/DL (5.7-8.2)
[2022-09-17 08:23] LABS: CK-MB VALUE MASS < 1.0 NG/ML (<3.6)
[2022-09-17 08:25] LABS: CPK CREATINE PHOSPHOKINASE 37 U/L (34-145)
[2022-09-17] MEDS ORDERED: LIDOCAINE 5% (LIDODERM) PATCH TD ONE (08:45)
[2022-09-17] MEDS ORDERED: ISOVUE-370 76% 100ML VIAL As Ordered ONE (12:12)
[2022-09-17 14:00] VITALS: BP 140/69
[2022-09-17] MEDS ORDERED: PRED10TA2 PO (14:21)
== END 2022-09-17 14:31 | disposition left against medical advice (07) ==
LOC: M ED 05:59
DX: R06.02 Shortness of breath (principal); E11.9 Type 2 diabetes mellitus without complications; E78.5 Hyperlipidemia, unspecified; F20.9 Schizophrenia, unspecified; F17.200 Nicotine dependence, unspecified, uncomplicated; Z88.0 Allergy status to penicillin; Z88.1 Allergy status to other antibiotic agents; Z88.6 Allergy status to analgesic agent; Z88.8 Allergy status to other drugs, medicaments and biological substances; Z79.4 Long term (current) use of insulin; Z79.52 Long term (current) use of systemic steroids; Z79.01 Long term (current) use of anticoagulants; Z79.899 Other long term (current) drug therapy; Z53.9 Procedure and treatment not carried out, unspecified reason

== ENCOUNTER → 2022-09-28 | Outpatient (CLI) | payer OTHER ==
[~2022-09-28] MED LIST changes: +E-Z-GAS II EFFERVESCENT PACKET (SODIUM BICARB./CITRIC ACID/SIMETHICONE) As Ordered ONE; +E-Z-HD 98% w/w 340GM SUSP BTL As Ordered ONE; +E-Z-PAQUE 96% w/w SUSP 176GM BTL As Ordered ONE
== END ==
LOC: M RAD 07:27
PROVIDERS: ATTEND Internal Medicine Gastroenterology
DX: R13.10 Dysphagia, unspecified (principal); K44.9 Diaphragmatic hernia without obstruction or gangrene

== ENCOUNTER → 2022-10-12 | Outpatient (CLI) | payer OTHER ==
[~2022-10-12] MED LIST changes: -E-Z-GAS II EFFERVESCENT PACKET (SODIUM BICARB./CITRIC ACID/SIMETHICONE) As Ordered ONE; -E-Z-HD 98% w/w 340GM SUSP BTL As Ordered ONE; -E-Z-PAQUE 96% w/w SUSP 176GM BTL As Ordered ONE
== END ==
LOC: M RAD 08:07
PROVIDERS: ATTEND Nurse Practitioner Family
DX: M51.16 Intervertebral disc disorders with radiculopathy, lumbar region (principal)

== ENCOUNTER 2022-11-07 00:47 | Inpatient (IN) | payer MEDICAID, OTHER ==
[~2022-11-07] VITALS: Ht 165.1 cm; Wt 98.2 kg
[~2022-11-07 00:47] MED LIST changes: +FLUT50SP17; +FLUT50SP17 INH; -FLUTISP; -FLUTISP INH
[2022-11-07 01:51] LABS: HEMATOCRIT 41.8 % (36.0-47.0); MEAN CORPUSCULAR HEMOGLOBIN 32.3 pg (27.0-33.0); MEAN CORPUSCULAR HGB CONC 35.9 g/dl (32.0-36.5); MEAN CORPUSCULAR VOLUME 90.1 fl (80.0-96.0); PLATELET COUNT, AUTOMATED 184 10^3/uL (150-450); RED BLOOD COUNT 4.64 10^6/uL (4.00-5.40); WHITE BLOOD COUNT 8.1 10^3/uL (4.0-10.0)
[2022-11-07 02:13] LABS: AMPHETAMINES LEVEL URINE NEGATIVE (NEGATIVE); BARBITURATES URINE NEGATIVE (NEGATIVE); BENZODIAZEPINES URINE NEGATIVE (NEGATIVE); CANNABINOIDS URINE NEGATIVE (NEGATIVE); COCAINE METABOLITE URINE NEGATIVE (NEGATIVE); METHADONE URINE NEGATIVE (NEGATIVE); OPIATES URINE NEGATIVE (NEGATIVE); PHENCYCLIDINE URINE NEGATIVE (NEGATIVE)
[2022-11-07 02:28] LABS: ETHYL ALCOHOL (ETHANOL) < 0.003 % (0.000-0.010)
[2022-11-07 02:29] LABS: ACETAMINOPHEN LEVEL < 2.0 UG/ML (10.0-20.0); SALICYLATE LEVEL < 3.0 MG/DL (<30)
[2022-11-07 02:30] LABS: ALBUMIN 3.9 G/DL (3.2-5.2); ALKALINE PHOSPHATASE 68 U/L (46-116); ALT/SGPT 15 U/L (7.0-40); AST/SGOT 12 U/L (<34); BILIRUBIN,DIRECT 0.2 MG/DL (<0.4); BILIRUBIN,TOTAL 0.7 MG/DL (0.3-1.2); BLOOD UREA NITROGEN 19 MG/DL (9-23); CALCIUM LEVEL 8.6 MG/DL (8.5-10.1); CARBON DIOXIDE LEVEL 26 MMOL/L (20-31); CHLORIDE LEVEL 107 MMOL/L (98-107); CREATININE FOR GFR 0.82 MG/DL (0.55-1.30); GLOMERULAR FILTRATION RATE > 60.0 (>58); GLUCOSE, FASTING 84 MG/DL (60-100); POTASSIUM SERUM 4.1 MMOL/L (3.5-5.1); SODIUM LEVEL 138 MMOL/L (136-145); TOTAL PROTEIN 6.8 G/DL (5.7-8.2)
[2022-11-07 02:32] LABS: THYROID STIMULATING HORMONE 1.576 uIU/ML (0.55-4.78)
[2022-11-07 03:02] LABS: HCG, SERUM QUALITATIVE NEGATIVE (NEGATIVE)
[2022-11-07] MEDS ORDERED: MAALOX 30 ML SUSP *UDC PO PRN (05:05)
[2022-11-07] MEDS ORDERED: MOM 30ML SUSPENSION UDC PO PRN (05:05)
[2022-11-07] MEDS ORDERED: traZODone 50 MG TAB PO PRN (05:05)
[2022-11-07 05:17] VITALS: BP 126/69
[2022-11-07] MEDS: OLANZapine ORAL DISINTEGRATING TAB 5MG PO PRN ×2 (09:20→22:03)
[2022-11-07] MEDS ORDERED: METF-838 PO (11:11)
[2022-11-07] MEDS ORDERED: MELO7.5T35 PO (11:11)
[2022-11-07] MEDS ORDERED: ATIV1TAB10 PO (11:11)
[2022-11-07] MEDS ORDERED: METH-1165 PO (11:11)
[2022-11-07] MEDS ORDERED: HOME MED LIST COMPLETE! XX SCH (11:20)
[2022-11-07] MEDS ORDERED: DEXTROSE 50% 50ML SYRINGE IV PRN (12:35)
[2022-11-07] MEDS ORDERED: GLUCOSE 4GM CHEW TABLET PO PRN (12:35)
[2022-11-07] MEDS ORDERED: LORATADINE 10 MG TAB PO PRN (12:35)
[2022-11-07] MEDS ORDERED: GLUCAGON INJ 1MG VIAL SC PRN (12:35)
[2022-11-07] MEDS ORDERED: ALBUTEROL 90 MCG/ACT 8GM HFA INHALER INH PRN (12:35)
[2022-11-07] MEDS: ATORVASTATIN 20 MG TAB PO SCH (14:31)
[2022-11-07] MEDS: APIXABAN 5 MG TAB (ELIQUIS) PO SCH ×2 (14:31→21:00)
[2022-11-07 16:32] VITALS: BP 113/67
[2022-11-07] MEDS: INSULIN LISPRO (NovoLOG) PER UNIT SC SCH ×2 (16:53→20:51)
[2022-11-07] MEDS: metFORMIN XR 500MG TAB *GLUCOPHAGE XR PO SCH (21:00)
[2022-11-07] MEDS: methocarbamoL 750 MG TAB PO SCH (21:00)
[2022-11-08] MEDS: INSULIN LISPRO (NovoLOG) PER UNIT SC SCH ×4 (06:52→21:00)
[2022-11-08] MEDS: APIXABAN 5 MG TAB (ELIQUIS) PO SCH ×2 (08:14→21:18)
[2022-11-08] MEDS: PALIPERIDONE 3MG ER TAB (INVEGA) PO SCH (08:14)
[2022-11-08] MEDS: ATORVASTATIN 20 MG TAB PO SCH (08:14)
[2022-11-08] MEDS: FLUTICASONE PROP 0.05% NASAL SPRAY 16 GM (FLONASE) SCH (08:15)
[2022-11-08] MEDS: MELOXICAM (MOBIC) 7.5 MG TAB PO SCH (08:15)
[2022-11-08] MEDS ORDERED: ACETAMINOPHEN 325 MG TAB PO PRN (15:20)
[2022-11-08] MEDS: LIDOCAINE 5% (LIDODERM) PATCH TD SCH (15:53)
[2022-11-08 18:45] VITALS: BP 135/86
[2022-11-08] MEDS: methocarbamoL 750 MG TAB PO SCH (21:18)
[2022-11-08] MEDS: metFORMIN XR 500MG TAB *GLUCOPHAGE XR PO SCH (21:19)
[2022-11-09 06:00] VITALS: BP 119/56
[2022-11-09] MEDS: INSULIN LISPRO (NovoLOG) PER UNIT SC SCH ×2 (06:24→12:00)
[2022-11-09] MEDS: FLUTICASONE PROP 0.05% NASAL SPRAY 16 GM (FLONASE) SCH (08:23)
[2022-11-09] MEDS: MELOXICAM (MOBIC) 7.5 MG TAB PO SCH (08:25)
[2022-11-09] MEDS: LIDOCAINE 5% (LIDODERM) PATCH TD SCH (08:25)
[2022-11-09] MEDS: PALIPERIDONE 3MG ER TAB (INVEGA) PO SCH (08:25)
[2022-11-09] MEDS: ATORVASTATIN 20 MG TAB PO SCH (08:25)
[2022-11-09] MEDS: APIXABAN 5 MG TAB (ELIQUIS) PO SCH (08:25)
[2022-11-09] MEDS ORDERED: PALI1TAB2 PO (11:08)
[2022-11-09] MEDS ORDERED: HUMA100I3 SC ×2 (11:08→12:32)
== END 2022-11-09 11:44 | disposition home or self-care (01) | DRG 750 ==
LOC: M ED 00:47 → M PSY 04:49
PROVIDERS: ADMIT Psychiatry & Neurology Psychiatry; ATTEND Psychiatry & Neurology Psychiatry
DX: F20.0 Paranoid schizophrenia (principal); F43.10 Post-traumatic stress disorder, unspecified; R45.851 Suicidal ideations; Z88.0 Allergy status to penicillin; Z88.6 Allergy status to analgesic agent; Z88.2 Allergy status to sulfonamides; Z88.8 Allergy status to other drugs, medicaments and biological substances; Z79.899 Other long term (current) drug therapy; Z79.4 Long term (current) use of insulin; E11.9 Type 2 diabetes mellitus without complications; D68.2 Hereditary deficiency of other clotting factors; Z86.711 Personal history of pulmonary embolism; Z79.01 Long term (current) use of anticoagulants; Z86.718 Personal history of other venous thrombosis and embolism; M51.26 Other intervertebral disc displacement, lumbar region; M54.2 Cervicalgia; F17.200 Nicotine dependence, unspecified, uncomplicated; E78.5 Hyperlipidemia, unspecified

== ENCOUNTER 2022-11-11 13:45 | Outpatient (RCR) | payer OTHER ==
[~2022-11-11 13:45] MED LIST changes: +ATIV1TAB10 PO; +HUMA100I3 SC; +METF-838 PO
== END 2022-11-22 ==
LOC: M PT 13:45
PROVIDERS: ATTEND Nurse Practitioner Family
DX: M54.41 Lumbago with sciatica, right side (principal)

== ENCOUNTER 2022-11-19 23:14 | Emergency (ER) | payer OTHER ==
[2022-11-19 23:22] VITALS: BP 123/67
== END 2022-11-20 00:20 | disposition left against medical advice (07) ==
LOC: M ED 23:14 → EDBD 23:14 → M ED 11-20 00:20
DX: Z53.21 Procedure and treatment not carried out due to patient leaving prior to being seen by health care provider (principal)

== ENCOUNTER → 2022-11-23 | Outpatient (CLI) | payer OTHER | LOC: M PAIN 15:15 | PROVIDERS: ATTEND Nurse Practitioner Family | DX: M54.50 Low back pain, unspecified (principal); G89.29 Other chronic pain; E11.9 Type 2 diabetes mellitus without complications; F17.210 Nicotine dependence, cigarettes, uncomplicated; Z86.59 Personal history of other mental and behavioral disorders; Z88.0 Allergy status to penicillin; Z88.1 Allergy status to other antibiotic agents; Z88.6 Allergy status to analgesic agent; Z88.8 Allergy status to other drugs, medicaments and biological substances; Z79.01 Long term (current) use of anticoagulants; Z79.4 Long term (current) use of insulin; Z79.84 Long term (current) use of oral hypoglycemic drugs; Z79.899 Other long term (current) drug therapy ==

== ENCOUNTER 2022-11-24 21:15 | Emergency (ER) | payer OTHER ==
[~2022-11-24] VITALS: Ht 165.1 cm; Wt 95.5 kg
[2022-11-24 21:22] VITALS: BP 120/74
== END 2022-11-25 00:39 | disposition left against medical advice (07) ==
LOC: M ED 21:15 → EDBD 21:15 → M ED 11-25 00:39
DX: Z53.21 Procedure and treatment not carried out due to patient leaving prior to being seen by health care provider (principal)

== ENCOUNTER 2022-12-18 00:43 | Inpatient (IN) | payer OTHER ==
[~2022-12-18] VITALS: Ht 170.2 cm; Wt 100.9 kg
[2022-12-18] MEDS ORDERED: NS 1,000 ML IV ONE (00:55)
[2022-12-18] MEDS ORDERED: DEXTROSE 50% 50ML SYRINGE IV ONE (00:55)
[2022-12-18] MEDS ORDERED: D10W/0.45% SODIUM CHLORIDE 1,000 ML IV SCH (01:00)
[2022-12-18 01:25] LABS: BASO % 0.3 % (0.0-1.0); EOS # 0.1 10^3/uL (0.0-0.5); EOS % 0.8 % (0.0-3.0); HEMATOCRIT 40.5 % (36.0-47.0); HEMOGLOBIN 14.7 g/dl (12.0-15.5); LYMPH # 1.7 10^3/uL (1.5-5.0); MEAN CORPUSCULAR HEMOGLOBIN 32.1 pg (27.0-33.0); MEAN CORPUSCULAR HGB CONC 36.3 g/dl (32.0-36.5); MEAN CORPUSCULAR VOLUME 88.4 fl (80.0-96.0); MONO # 0.4 10^3/uL (0.0-0.8); NEUTROPHILS # 6.3 10^3/uL (1.5-8.5); NEUTROPHILS % 73.4 % (36.0-66.0); PLATELET COUNT, AUTOMATED 178 10^3/uL (150-450); RED BLOOD COUNT 4.58 10^6/uL (4.00-5.40); WHITE BLOOD COUNT 8.6 10^3/uL (4.0-10.0)
[2022-12-18 01:40] LABS: ETHYL ALCOHOL (ETHANOL) < 0.003 % (0.000-0.010)
[2022-12-18 01:41] LABS: SALICYLATE LEVEL < 3.0 MG/DL (<30)
[2022-12-18 01:42] LABS: ACETAMINOPHEN LEVEL < 2.0 UG/ML (10.0-20.0); ALBUMIN 3.9 G/DL (3.2-5.2); ALKALINE PHOSPHATASE 66 U/L (46-116); ALT/SGPT 13 U/L (7.0-40); AST/SGOT 11 U/L (<34); BILIRUBIN,DIRECT 0.2 MG/DL (<0.4); BILIRUBIN,TOTAL 0.6 MG/DL (0.3-1.2); BLOOD UREA NITROGEN 16 MG/DL (9-23); CALCIUM LEVEL 8.7 MG/DL (8.5-10.1); CARBON DIOXIDE LEVEL 23 MMOL/L (20-31); CHLORIDE LEVEL 108 MMOL/L (98-107); CK-MB VALUE MASS < 1.0 NG/ML (<3.6); CPK CREATINE PHOSPHOKINASE 48 U/L (34-145); GLOMERULAR FILTRATION RATE > 60.0 (>58); GLUCOSE, FASTING 75 MG/DL (60-100); MB/CK RELATIVE INDEX 2.08 (< OR =4); POTASSIUM SERUM 3.4 MMOL/L (3.5-5.1); SODIUM LEVEL 140 MMOL/L (136-145); TOTAL PROTEIN 6.5 G/DL (5.7-8.2)
[2022-12-18 01:44] LABS: THYROID STIMULATING HORMONE 2.135 uIU/ML (0.55-4.78)
[2022-12-18 01:51] LABS: AMPHETAMINES LEVEL URINE NEGATIVE (NEGATIVE); BARBITURATES URINE NEGATIVE (NEGATIVE); BENZODIAZEPINES URINE NEGATIVE (NEGATIVE); CANNABINOIDS URINE NEGATIVE (NEGATIVE); COCAINE METABOLITE URINE NEGATIVE (NEGATIVE); METHADONE URINE NEGATIVE (NEGATIVE); OPIATES URINE NEGATIVE (NEGATIVE); PHENCYCLIDINE URINE NEGATIVE (NEGATIVE); RSV AMPLIFICATION NEGATIVE (NEGATIVE)
[2022-12-18] MEDS ORDERED: ISOVUE-370 76% 100ML VIAL As Ordered ONE (02:08)
[2022-12-18] MEDS ORDERED: ONDANSETRON 4MG 2ML VIAL As Ordered ONE (02:30)
[2022-12-18 02:34] LABS: VENOUS BASE EXCESS -2.2 (-2.0-2.0); VENOUS HCO3 21.6 MMOL/L (23.0-27.0); VENOUS O2 SATURATION 98.5 % (60.0-80.0); VENOUS PARTIAL PRESSURE CO2 34.4 mmHg (38.0-50.0); VENOUS PARTIAL PRESSURE O2 166.6 mmHg (30.0-50.0); VENOUS PH 7.415 UNITS (7.330-7.430); VENOUS STANDARD HCO3 22.7 MMOL/L; VENOUS TOTAL CO2 22.6 MMOL/L (24.0-28.0)
[2022-12-18] MEDS ORDERED: DEXTROSE 50% 50ML SYRINGE IV STA ×2 (02:43→03:50)
[2022-12-18] MEDS ORDERED: ONDANSETRON 4MG 2ML VIAL IV ONE (02:45)
[2022-12-18] MEDS ORDERED: D5W/0.45% SODIUM CHLORIDE 1,000 ML IV SCH (04:30)
[2022-12-18] MEDS ORDERED: DEXTROSE 50% 50ML SYRINGE IV PRN (04:35)
[2022-12-18] MEDS ORDERED: GLUCAGON INJ 1MG VIAL SC PRN (04:35)
[2022-12-18] MEDS ORDERED: GLUCOSE 4GM CHEW TABLET PO PRN (04:35)
[2022-12-18] MEDS ORDERED: POTASSIUM CHLORIDE 10% LIQ 20MEQ/15ML UDC PO ONE (05:00)
[2022-12-18 05:17] VITALS: BP 97/52
[2022-12-18 05:45] LABS: HEMOGLOBIN A1c 4.6 % (4.0-6.0)
[2022-12-18] MEDS ORDERED: HOME MED LIST COMPLETE! XX SCH (05:50)
[2022-12-18 06:00] VITALS: BP 114/58
[2022-12-18 07:33] LABS: HEMATOCRIT 38.9 % (36.0-47.0); MEAN CORPUSCULAR HEMOGLOBIN 32.6 pg (27.0-33.0); MEAN CORPUSCULAR VOLUME 90.5 fl (80.0-96.0); PLATELET COUNT, AUTOMATED 180 10^3/uL (150-450); WHITE BLOOD COUNT 6.8 10^3/uL (4.0-10.0)
[2022-12-18 07:59] LABS: BLOOD UREA NITROGEN 12 MG/DL (9-23); CALCIUM LEVEL 7.9 MG/DL (8.5-10.1); CARBON DIOXIDE LEVEL 27 MMOL/L (20-31); CHLORIDE LEVEL 107 MMOL/L (98-107); CREATININE FOR GFR 0.76 MG/DL (0.55-1.30); GLOMERULAR FILTRATION RATE > 60.0 (>58); GLUCOSE, FASTING 65 MG/DL (60-100); POTASSIUM SERUM 4.4 MMOL/L (3.5-5.1); SODIUM LEVEL 140 MMOL/L (136-145)
[2022-12-18 08:00] VITALS: BP 104/66
[2022-12-18] MEDS: APIXABAN 5 MG TAB (ELIQUIS) PO SCH ×2 (08:12→21:05)
[2022-12-18] MEDS ORDERED: ALBUTEROL 90 MCG/ACT 8GM HFA INHALER INH PRN (08:45)
[2022-12-18] MEDS ORDERED: PANTOPRAZOLE 20 MG TAB PO SCH (09:00)
[2022-12-18 12:00] VITALS: BP 119/68
[2022-12-18] MEDS ORDERED: MAG SULF 1GM/100ML (MAG RUN) 1 GM in IV 1 EA IV ONE (12:00)
[2022-12-18 13:14] VITALS: BP 104/72
[2022-12-18] MEDS ORDERED: SEMA0.257 SQ (13:30)
[2022-12-18] MEDS ORDERED: PROMETHAZINE 25MG/ML 1ML VIAL IV PRN (13:30)
[2022-12-18] MEDS ORDERED: METF500T13 PO (13:33)
[2022-12-18] MEDS ORDERED: METOCLOPRAMIDE INJ 10MG/2ML VIAL IV ONE (13:45)
[2022-12-18] MEDS ORDERED: LORATADINE 10 MG TAB PO PRN (13:55)
[2022-12-18] MEDS ORDERED: LORazepam 0.5 MG TAB PO PRN (13:55)
[2022-12-18] MEDS ORDERED: RIZATRIPTAN MLT 10 MG TAB PO ONE (15:00)
[2022-12-18 20:00] VITALS: BP 120/59
[2022-12-18] MEDS ORDERED: methocarbamoL 750 MG TAB PO SCH (21:00)
[2022-12-18] MEDS ORDERED: ATORVASTATIN 20 MG TAB PO SCH (21:00)
[2022-12-18] MEDS ORDERED: MELOXICAM (MOBIC) 7.5 MG TAB PO SCH (21:00)
[2022-12-19 08:10] LABS: C-PEPTIDE 1.5 ng/mL (1.1-4.4); INSULIN LEVEL 10.1 uIU/mL (2.6-24.9)
== END 2022-12-18 22:03 | disposition left against medical advice (07) | DRG 420 ==
LOC: EDBD 00:43 → M ED 00:43 → M ED INP 04:45 → M ICU 05:17 → M MSPAV 13:11
PROVIDERS: ADMIT Internal Medicine Pulmonary Disease; ATTEND General Practice
DX: E11.649 Type 2 diabetes mellitus with hypoglycemia without coma (principal); G93.41 Metabolic encephalopathy; D68.51 Activated protein C resistance; F20.0 Paranoid schizophrenia; F43.10 Post-traumatic stress disorder, unspecified; F41.9 Anxiety disorder, unspecified; F32.A Depression, unspecified; K21.9 Gastro-esophageal reflux disease without esophagitis; E78.5 Hyperlipidemia, unspecified; F17.210 Nicotine dependence, cigarettes, uncomplicated; Z99.3 Dependence on wheelchair; Z86.711 Personal history of pulmonary embolism; Z86.718 Personal history of other venous thrombosis and embolism; Z79.01 Long term (current) use of anticoagulants; Z79.4 Long term (current) use of insulin; Z79.84 Long term (current) use of oral hypoglycemic drugs; Z79.899 Other long term (current) drug therapy; Z88.0 Allergy status to penicillin; Z88.1 Allergy status to other antibiotic agents; Z88.2 Allergy status to sulfonamides; Z88.6 Allergy status to analgesic agent; Z88.8 Allergy status to other drugs, medicaments and biological substances

== ENCOUNTER → 2022-12-28 | Outpatient (CLI) | payer OTHER ==
[~2022-12-28] MED LIST changes: +SEMA0.257 SQ
== END ==
LOC: M RAD 07:53
PROVIDERS: ATTEND Nurse Practitioner Family
DX: R10.9 Unspecified abdominal pain (principal); Z13.6 Encounter for screening for cardiovascular disorders; R16.0 Hepatomegaly, not elsewhere classified

== ENCOUNTER → 2023-01-07 | Outpatient (REF) | payer OTHER ==
[2023-01-07 17:39] LABS: FOLATE 16.9 NG/ML (>5.4)
[2023-01-07 17:41] LABS: VITAMIN B12 LEVEL 278 PG/ML (211-911)
[2023-01-07 18:50] LABS: HEMOGLOBIN A1c 4.6 % (4.0-6.0)
== END ==
LOC: M LAB REF 16:34
PROVIDERS: ATTEND Nurse Practitioner Family
DX: R20.2 Paresthesia of skin (principal)

== ENCOUNTER 2023-02-16 03:52 | Observation (INO) | payer OTHER ==
[~2023-02-16] VITALS: Ht 165.1 cm; Wt 99.3 kg
[2023-02-16] MEDS ORDERED: DEXTROSE 50% 50ML SYRINGE IV STA ×2 (04:08→04:53)
[2023-02-16] MEDS ORDERED: DEXTROSE 50% 50ML SYRINGE As Ordered ONE (04:09)
[2023-02-16] MEDS ORDERED: NORT10CA2 PO (04:20)
[2023-02-16 04:38] LABS: BASO % 0.3 % (0.0-1.0); EOS # 0.1 10^3/uL (0.0-0.5); EOS % 1.1 % (0.0-3.0); HEMATOCRIT 44.3 % (36.0-47.0); HEMOGLOBIN 16.4 g/dl (12.0-15.5); LYMPH # 3.9 10^3/uL (1.5-5.0); LYMPH % 36.2 % (24.0-44.0); MEAN CORPUSCULAR HEMOGLOBIN 32.2 pg (27.0-33.0); MEAN CORPUSCULAR VOLUME 86.9 fl (80.0-96.0); MONO # 0.4 10^3/uL (0.0-0.8); MONO % 4.1 % (2.0-8.0); NEUTROPHILS # 6.3 10^3/uL (1.5-8.5); NEUTROPHILS % 58.1 % (36.0-66.0); PLATELET COUNT, AUTOMATED 218 10^3/uL (150-450); WHITE BLOOD COUNT 10.8 10^3/uL (4.0-10.0)
[2023-02-16 04:39] LABS: VENOUS BASE EXCESS -3.9 (-2.0-2.0); VENOUS HCO3 18.2 MMOL/L (23.0-27.0); VENOUS O2 SATURATION 97.4 % (60.0-80.0); VENOUS PARTIAL PRESSURE CO2 27.1 mmHg (38.0-50.0); VENOUS PARTIAL PRESSURE O2 95.8 mmHg (30.0-50.0); VENOUS PH 7.446 UNITS (7.330-7.430); VENOUS STANDARD HCO3 21.3 MMOL/L; VENOUS TOTAL CO2 19.1 MMOL/L (24.0-28.0)
[2023-02-16 04:58] LABS: LIPASE 39 U/L (12-53)
[2023-02-16 05:00] LABS: ALBUMIN 4.2 G/DL (3.2-5.2); ALKALINE PHOSPHATASE 60 U/L (46-116); ALT/SGPT 11 U/L (7.0-40); AST/SGOT < 8 U/L (<34); BILIRUBIN,DIRECT 0.2 MG/DL (<0.4); BILIRUBIN,TOTAL 0.6 MG/DL (0.3-1.2); OSMOLALITY SERUM 276 MOSM/KG (275-295); TOTAL PROTEIN 6.8 G/DL (5.7-8.2)
[2023-02-16 05:01] LABS: ACETONE/KETONE 0.07 MMOL/L (0.02-0.27)
[2023-02-16 05:10] LABS: HEMOGLOBIN A1c 4.5 % (4.0-6.0)
[2023-02-16 06:17] LABS: BLOOD UREA NITROGEN 8 MG/DL (9-23); CALCIUM LEVEL 8.9 MG/DL (8.5-10.1); CARBON DIOXIDE LEVEL 18 MMOL/L (20-31); CHLORIDE LEVEL 110 MMOL/L (98-107); CREATININE FOR GFR 0.68 MG/DL (0.55-1.30); GLOMERULAR FILTRATION RATE > 60.0 (>58); GLUCOSE, FASTING 42 MG/DL (60-100); POTASSIUM SERUM 2.8 MMOL/L (3.5-5.1); SODIUM LEVEL 141 MMOL/L (136-145)
[2023-02-16] MEDS ORDERED: D5W/0.45% SODIUM CHLORIDE 1,000 ML IV SCH ×2 (06:20→11:30)
[2023-02-16] MEDS ORDERED: KCL 10MEQ/100ML SWI (KRUN) 10 MEQ in IV 1 EA IV ONE ×2 (06:20→08:00)
[2023-02-16] MEDS ORDERED: MED REC IN PROGRESS XX SCH (08:45)
[2023-02-16] MEDS ORDERED: BUDE180INH INH (09:13)
[2023-02-16] MEDS ORDERED: MONT10TA97 PO (09:13)
[2023-02-16] MEDS ORDERED: METF500T13 PO (09:13)
[2023-02-16] MEDS ORDERED: HOME MED LIST COMPLETE! XX SCH (09:15)
[2023-02-16 10:27] LABS: APPEARANCE, URINE CLEAR (CLEAR); BACTERIA, URINE AUTO 1+ (NEGATIVE); BILIRUBIN, URINE AUTO NEGATIVE (NEGATIVE); BLOOD, URINE BLOOD 2+ (NEGATIVE); COLOR, URINE YELLOW (YELLOW); GLUCOSE, URINE (UA) AUTO NEGATIVE (NEGATIVE); KETONE, URINE AUTO NEGATIVE (NEGATIVE); LEUKOCYTE ESTERASE, URINE AUTO NEGATIVE (NEGATIVE); NITRITE, URINE AUTO NEGATIVE (NEGATIVE); PROTEIN, URINE AUTO NEGATIVE (NEGATIVE); RBC, URINE AUTO 1 /HPF (0-3); SPECIFIC GRAVITY URINE AUTO 1.005 (1.002-1.035); SQUAMOUS EPITHELIAL CELL UR AU 4 /HPF (0-6); UROBILINOGEN, URINE AUTO 0.2 mg/dL (0.0-2.0); WBC, URINE AUTO 1 /HPF (0-3)
[2023-02-16] MEDS ORDERED: POTASSIUM CHLORIDE 10MEQ SR TABLET PO ONE (11:00)
[2023-02-16] MEDS ORDERED: ALBUTEROL 90 MCG/ACT 8GM HFA INHALER INH PRN (11:05)
[2023-02-16] MEDS ORDERED: MONTELUKAST 10 MG TAB PO SCH (11:30)
[2023-02-16] MEDS ORDERED: APIXABAN 5 MG TAB (ELIQUIS) PO SCH (11:30)
[2023-02-16 14:50] VITALS: BP 132/80; TEMP 97.6; O2SAT 96
[2023-02-16 15:49] LABS: BLOOD UREA NITROGEN 8 MG/DL (9-23); CALCIUM LEVEL 8.8 MG/DL (8.5-10.1); CARBON DIOXIDE LEVEL 20 MMOL/L (20-31); CHLORIDE LEVEL 109 MMOL/L (98-107); CREATININE FOR GFR 0.59 MG/DL (0.55-1.30); GLOMERULAR FILTRATION RATE > 60.0 (>58); GLUCOSE, FASTING 216 MG/DL (60-100); POTASSIUM SERUM 4.6 MMOL/L (3.5-5.1); SODIUM LEVEL 137 MMOL/L (136-145)
[2023-02-16] MEDS ORDERED: DEXTROSE 50% 50ML SYRINGE IV PRN (15:50)
[2023-02-16] MEDS ORDERED: GLUCOSE 4GM CHEW TABLET PO PRN (15:50)
[2023-02-16] MEDS ORDERED: GLUCAGON INJ 1MG VIAL SC PRN (15:50)
[2023-02-16] MEDS ORDERED: MAG SULF 1GM/100ML (MAG RUN) 100 ML IV SCH (18:30)
[2023-02-16] MEDS ORDERED: BUDESONIDE 180MCG INHALER (PULMICORT FLEXHALER) INH SCH (20:00)
[2023-02-16] MEDS ORDERED: NORTRIPTYLINE 10 MG CAP PO SCH (21:00)
[2023-02-16] MEDS ORDERED: MELOXICAM (MOBIC) 7.5 MG TAB PO SCH (21:00)
[2023-02-16] MEDS ORDERED: ATORVASTATIN 20 MG TAB PO SCH (21:00)
[2023-02-16] MEDS ORDERED: methocarbamoL 750 MG TAB PO SCH (21:00)
== END 2023-02-16 18:15 | disposition left against medical advice (07) ==
LOC: M ED 03:52 → M ED INP 09:45 → M PCU 14:38
PROVIDERS: ADMIT Internal Medicine; ATTEND Internal Medicine
DX: E87.6 Hypokalemia (principal); E16.2 Hypoglycemia, unspecified; T38.3X5A Adverse effect of insulin and oral hypoglycemic [antidiabetic] drugs, initial encounter; D68.2 Hereditary deficiency of other clotting factors; E78.5 Hyperlipidemia, unspecified; K21.9 Gastro-esophageal reflux disease without esophagitis; M25.569 Pain in unspecified knee; N83.202 Unspecified ovarian cyst, left side; F20.0 Paranoid schizophrenia; F43.10 Post-traumatic stress disorder, unspecified; F41.9 Anxiety disorder, unspecified; F32.A Depression, unspecified; Z79.01 Long term (current) use of anticoagulants; Z79.84 Long term (current) use of oral hypoglycemic drugs; Z79.4 Long term (current) use of insulin; Z79.899 Other long term (current) drug therapy; Z88.0 Allergy status to penicillin; Z88.8 Allergy status to other drugs, medicaments and biological substances

== ENCOUNTER → 2023-02-18 | Outpatient (REF) | payer OTHER ==
[~2023-02-18] MED LIST changes: +BUDE180INH INH; +MONT10TA97 PO
[2023-02-18 17:50] LABS: CREATININE, URINE 151.4 MG/DL; MAU/CREAT RATIO 1.9 MCG/MG (0.0-30.0)
[2023-02-18 18:49] LABS: BLOOD UREA NITROGEN 9 MG/DL (9-23); CALCIUM LEVEL 8.6 MG/DL (8.5-10.1); CARBON DIOXIDE LEVEL 25 MMOL/L (20-31); CHLORIDE LEVEL 106 MMOL/L (98-107); CREATININE FOR GFR 0.68 MG/DL (0.55-1.30); GLOMERULAR FILTRATION RATE > 60.0 (>58); GLUCOSE, FASTING 96 MG/DL (60-100); MAGNESIUM LEVEL 1.6 MG/DL (1.8-2.4); POTASSIUM SERUM 3.6 MMOL/L (3.5-5.1); SODIUM LEVEL 138 MMOL/L (136-145)
== END ==
LOC: M LAB REF 16:47
PROVIDERS: ATTEND Nurse Practitioner Family
DX: R44.8 Other symptoms and signs involving general sensations and perceptions (principal); R31.29 Other microscopic hematuria; E87.6 Hypokalemia

== ENCOUNTER 2023-03-12 00:49 | Emergency (ER) | payer OTHER ==
[~2023-03-12] VITALS: Ht 165.1 cm; Wt 94.7 kg
[~2023-03-12 00:49] MED LIST changes: -GABA-283 PO; +GABA-284 PO; +LORA-1041 PO; -LORA-674 PO
[2023-03-12 00:57] VITALS: BP 139/66; TEMP 97.1; O2SAT 97
[2023-03-13] MEDS ORDERED: DOXY-443 PO (15:34)
== END 2023-03-12 04:06 | disposition left against medical advice (07) ==
LOC: M ED 00:49
DX: Z53.21 Procedure and treatment not carried out due to patient leaving prior to being seen by health care provider (principal)

== ENCOUNTER 2023-03-13 13:17 | Emergency (ER) | payer OTHER ==
[~2023-03-13] VITALS: Ht 165.1 cm; Wt 96.2 kg
[~2023-03-13 13:17] MED LIST changes: -LORA-1041 PO; +LORA-674 PO
[2023-03-13] MEDS ORDERED: TETRACAINE 0.5% OPHTH SOLN 4ML OD ONE (15:05)
[2023-03-13] MEDS ORDERED: DOXYCYCLINE HYCLATE 100MG TABLET PO ONE (15:05)
[2023-03-13] MEDS ORDERED: FLUORESCEIN OPHTH 1MG STRIP OD ONE (15:05)
[2023-03-13] MEDS ORDERED: DOXY-443 PO (15:34)
[2023-03-13 15:42] VITALS: BP 119/82; TEMP 98.2; O2SAT 98
== END 2023-03-13 15:41 | disposition home or self-care (01) ==
LOC: M ED 13:17
DX: L03.213 Periorbital cellulitis (principal); E11.9 Type 2 diabetes mellitus without complications; F17.200 Nicotine dependence, unspecified, uncomplicated; Z79.01 Long term (current) use of anticoagulants; Z79.4 Long term (current) use of insulin; Z79.899 Other long term (current) drug therapy; Z88.0 Allergy status to penicillin; Z88.6 Allergy status to analgesic agent; Z88.2 Allergy status to sulfonamides; Z88.8 Allergy status to other drugs, medicaments and biological substances

== ENCOUNTER 2023-03-21 21:35 | Inpatient (IN) | payer OTHER ==
[~2023-03-21] VITALS: Ht 165.1 cm; Wt 100.0 kg
[~2023-03-21 21:35] MED LIST changes: +DOXY-443 PO
[2023-03-21 22:00] VITALS: TEMP 97.7
[2023-03-21] MEDS ORDERED: D10W/0.45% SODIUM CHLORIDE 1,000 ML IV SCH (22:30)
[2023-03-21 22:46] LABS: BASO % 0.3 % (0.0-1.0); EOS # 0.1 10^3/uL (0.0-0.5); EOS % 1.1 % (0.0-3.0); HEMATOCRIT 41.9 % (36.0-47.0); HEMOGLOBIN 15.1 g/dl (12.0-15.5); LYMPH # 2.4 10^3/uL (1.5-5.0); LYMPH % 38.6 % (24.0-44.0); MEAN CORPUSCULAR HEMOGLOBIN 31.9 pg (27.0-33.0); MEAN CORPUSCULAR VOLUME 88.4 fl (80.0-96.0); MONO # 0.2 10^3/uL (0.0-0.8); MONO % 3.5 % (2.0-8.0); NEUTROPHILS # 3.6 10^3/uL (1.5-8.5); NEUTROPHILS % 56.2 % (36.0-66.0); PLATELET COUNT, AUTOMATED 160 10^3/uL (150-450); RED BLOOD COUNT 4.74 10^6/uL (4.00-5.40); WHITE BLOOD COUNT 6.3 10^3/uL (4.0-10.0)
[2023-03-21 22:56] LABS: BLOOD UREA NITROGEN 7 MG/DL (9-23); CALCIUM LEVEL 8.8 MG/DL (8.5-10.1); CARBON DIOXIDE LEVEL 22 MMOL/L (20-31); CHLORIDE LEVEL 111 MMOL/L (98-107); CREATININE FOR GFR 0.67 MG/DL (0.55-1.30); GLOMERULAR FILTRATION RATE > 60.0 (>58); GLUCOSE, FASTING 59 MG/DL (60-100); MAGNESIUM LEVEL 1.4 MG/DL (1.8-2.4); POTASSIUM SERUM 2.9 MMOL/L (3.5-5.1); SODIUM LEVEL 140 MMOL/L (136-145)
[2023-03-21 23:09] LABS: HEMOGLOBIN A1c 4.6 % (4.0-6.0)
[2023-03-21] MEDS ORDERED: MAG SULF 1GM/100ML (MAG RUN) 1 GM in IV 1 EA IV ONE (23:30)
[2023-03-21] MEDS ORDERED: DEXTROSE 50% 50ML SYRINGE As Ordered ONE (23:57)
[2023-03-21] MEDS ORDERED: DOXY100C3 PO (23:58)
[2023-03-22] MEDS ORDERED: SUCR1ORA PO
[2023-03-22] MEDS ORDERED: METF-838 PO
[2023-03-22] MEDS ORDERED: DEXTROSE 50% 50ML SYRINGE IV STA
[2023-03-22] MEDS ORDERED: OMEP-173 PO
[2023-03-22] MEDS ORDERED: POTASSIUM CHLORIDE 10MEQ SR TABLET PO ONE
[2023-03-22] MEDS ORDERED: KCL 10MEQ/100ML SWI (KRUN) 10 MEQ in IV 1 EA IV ONE ×2
[2023-03-22] MEDS ORDERED: MONT10TA97 PO (00:01)
[2023-03-22] MEDS ORDERED: ALBU2.5V10 PO (00:03)
[2023-03-22] MEDS ORDERED: PULM90IN INH (00:03)
[2023-03-22] MEDS ORDERED: SEMA0.257 INJ (00:04)
[2023-03-22] MEDS ORDERED: HOME MED LIST COMPLETE! XX SCH (00:05)
[2023-03-22 02:02] LABS: LIPASE 31 U/L (12-53)
[2023-03-22] MEDS ORDERED: ISOVUE-370 76% 100ML VIAL As Ordered ONE (02:03)
[2023-03-22 02:04] LABS: AMYLASE 38 U/L (30-118)
[2023-03-22] MEDS ORDERED: DEXTROSE 50% 50ML SYRINGE IV PRN (02:20)
[2023-03-22] MEDS ORDERED: GLUCAGON INJ 1MG VIAL SC PRN (02:20)
[2023-03-22] MEDS ORDERED: GLUCOSE 4GM CHEW TABLET PO PRN (02:20)
[2023-03-22] MEDS ORDERED: ONDANSETRON 4MG 2ML VIAL IV PRN (03:15)
[2023-03-22] MEDS ORDERED: ALBUTEROL 90 MCG/ACT 8GM HFA INHALER INH PRN (03:15)
[2023-03-22] MEDS ORDERED: KETOROLAC 30 MG/ML 1ML VIAL IV PRN (03:15)
[2023-03-22] MEDS ORDERED: D10W/0.45% SODIUM CHLORIDE 1,000 ML IV SCH (03:15)
[2023-03-22 06:15] VITALS: O2SAT 95
[2023-03-22 06:31] VITALS: BP 121/63
[2023-03-22 07:40] LABS: BLOOD UREA NITROGEN < 5 MG/DL (9-23); CALCIUM LEVEL 8.6 MG/DL (8.5-10.1); CARBON DIOXIDE LEVEL 24 MMOL/L (20-31); CHLORIDE LEVEL 113 MMOL/L (98-107); CREATININE FOR GFR 0.57 MG/DL (0.55-1.30); GLOMERULAR FILTRATION RATE > 60.0 (>58); GLUCOSE, FASTING 99 MG/DL (60-100); POTASSIUM SERUM 4.2 MMOL/L (3.5-5.1); SODIUM LEVEL 141 MMOL/L (136-145)
[2023-03-22] MEDS ORDERED: BUDESONIDE 180MCG INHALER (PULMICORT FLEXHALER) INH SCH (08:00)
[2023-03-22] MEDS ORDERED: APIXABAN 5 MG TAB (ELIQUIS) PO SCH (09:00)
[2023-03-22] MEDS ORDERED: PANTOPRAZOLE 40MG VIAL IV SCH (09:00)
[2023-03-22] MEDS ORDERED: SUCRALFATE SUSP 1GM/10ML UD PO SCH (09:00)
[2023-03-22] MEDS ORDERED: E-Z-PAQUE 96% w/w SUSP 176GM BTL As Ordered ONE (10:05)
[2023-03-22] MEDS ORDERED: E-Z-GAS II EFFERVESCENT PACKET (SODIUM BICARB./CITRIC ACID/SIMETHICONE) As Ordered ONE (10:05)
[2023-03-22] MEDS ORDERED: E-Z-HD 98% w/w 340GM SUSP BTL As Ordered ONE (10:05)
[2023-03-22] MEDS ORDERED: CREON-12 CAPSULE PO SCH (12:30)
[2023-03-22] MEDS ORDERED: OMEPRAZOLE 20MG CAP PO SCH (21:00)
[2023-03-22] MEDS ORDERED: NORTRIPTYLINE 10 MG CAP PO SCH (21:00)
[2023-03-22] MEDS ORDERED: methocarbamoL 750 MG TAB PO SCH (21:00)
[2023-03-22] MEDS ORDERED: ATORVASTATIN 20 MG TAB PO SCH (21:00)
[2023-03-22] MEDS ORDERED: MONTELUKAST 10 MG TAB PO SCH (21:00)
== END 2023-03-22 10:58 | disposition left against medical advice (07) | DRG 420 ==
LOC: M ED 21:35 → M ED INP 03-22 03:13
PROVIDERS: ADMIT Internal Medicine; ATTEND Internal Medicine
DX: E11.649 Type 2 diabetes mellitus with hypoglycemia without coma (principal); E87.6 Hypokalemia; D68.2 Hereditary deficiency of other clotting factors; Z86.718 Personal history of other venous thrombosis and embolism; J45.909 Unspecified asthma, uncomplicated; E78.00 Pure hypercholesterolemia, unspecified; M54.9 Dorsalgia, unspecified; F17.210 Nicotine dependence, cigarettes, uncomplicated; R11.2 Nausea with vomiting, unspecified; R10.12 Left upper quadrant pain; R19.7 Diarrhea, unspecified; F14.21 Cocaine dependence, in remission; T38.3X5A Adverse effect of insulin and oral hypoglycemic [antidiabetic] drugs, initial encounter; Z79.01 Long term (current) use of anticoagulants; Z79.84 Long term (current) use of oral hypoglycemic drugs; Z79.899 Other long term (current) drug therapy; Z88.0 Allergy status to penicillin; Z88.2 Allergy status to sulfonamides; Z88.6 Allergy status to analgesic agent; Z88.8 Allergy status to other drugs, medicaments and biological substances; K86.1 Other chronic pancreatitis; Z79.85 Long-term (current) use of injectable non-insulin antidiabetic drugs; Z79.4 Long term (current) use of insulin

== ENCOUNTER → 2023-04-13 | Outpatient (REF) | payer OTHER, MEDICAID ==
[~2023-04-13] MED LIST changes: +ALBU2.5V10 PO; +DOXY100C3 PO; +LORA-1041 PO; -LORA-674 PO; +OMEP-173 PO; +PULM90IN INH; +SEMA0.257 INJ; +SUCR1ORA PO
== END ==
LOC: M LAB REF 11:56
PROVIDERS: ATTEND Nurse Practitioner Family
DX: K52.9 Noninfective gastroenteritis and colitis, unspecified (principal)

== ENCOUNTER 2023-04-30 06:08 | Day surgery (SDC) | payer OTHER ==
[~2023-04-30] VITALS: Ht 165.1 cm; Wt 97.9 kg
[~2023-04-30 06:08] MED LIST changes: +MAGN250T11 PO; +SEMA0.257 SC
[2023-04-30] MEDS ORDERED: METHYLENE BLUE 0.5% (5MG/ML) 10 ML AMP (PROVAYBLUE) As Ordered ONE (06:35)
[2023-04-30 06:58] LABS: HEMATOCRIT 41.8 % (36.0-47.0); HEMOGLOBIN 15.1 g/dl (12.0-15.5); MEAN CORPUSCULAR HEMOGLOBIN 32.4 pg (27.0-33.0); MEAN CORPUSCULAR HGB CONC 36.1 g/dl (32.0-36.5); MEAN CORPUSCULAR VOLUME 89.7 fl (80.0-96.0); PLATELET COUNT, AUTOMATED 169 10^3/uL (150-450); RED BLOOD COUNT 4.66 10^6/uL (4.00-5.40); WHITE BLOOD COUNT 6.1 10^3/uL (4.0-10.0)
[2023-04-30] MEDS ORDERED: INDOCYANINE GREEN 25MG VIAL (IC-GREEN) As Ordered ONE ×2 (07:04→08:27)
[2023-04-30] MEDS ORDERED: ISOVUE-300 61% 100ML VIAL As Ordered ONE (07:07)
[2023-04-30] MEDS ORDERED: LR 1,000 ML IV SCH ×2 (07:25→10:25)
[2023-04-30] MEDS ORDERED: dexmedeTOMIDine (4MCG/ML)200MCG/50ML BTL (PRECEDEX) As Ordered ONE (09:13)
[2023-04-30] MEDS ORDERED: SUGAMMADEX SODIUM 500 MG/5 ML VIAL (BRIDION) As Ordered ONE (09:13)
[2023-04-30] MEDS ORDERED: MIDAZOLAM INJ 2MG/2ML VIAL As Ordered ONE (09:13)
[2023-04-30] MEDS ORDERED: LIDOCAINE 2% 100MG/5ML SDV (FOR ANES.) As Ordered ONE (09:13)
[2023-04-30] MEDS ORDERED: fentaNYL 100 MCG/2 ML INJECTION As Ordered ONE (09:13)
[2023-04-30] MEDS ORDERED: KETAMINE HCL 200MG/20ML VIAL As Ordered ONE (09:13)
[2023-04-30] MEDS ORDERED: ROCURONIUM BROMIDE 50MG/5ML VIAL As Ordered ONE ×2 (09:13→09:14)
[2023-04-30] MEDS ORDERED: propofoL 200 MG/20 ML VIAL As Ordered ONE (09:13)
[2023-04-30] MEDS ORDERED: ONDANSETRON 4MG 2ML VIAL As Ordered ONE (09:13)
[2023-04-30] MEDS ORDERED: PHENYLephrine 500MCG 5ML (100MCG/ML) SYRINGE As Ordered ONE (09:14)
[2023-04-30] MEDS ORDERED: VASOPRESSIN INJ 20UNITS/ML 1ML VIAL As Ordered ONE (09:55)
[2023-04-30] MEDS ORDERED: ONDANSETRON 4MG 2ML VIAL IV PRN (10:25)
[2023-04-30] MEDS ORDERED: oxyCODONE 5MG TAB PO PRN (10:25)
[2023-04-30] MEDS ORDERED: HYDROMORPHONE HCL 0.5 MG/ 0.5 ML SYRINGE IV PRN (10:25)
[2023-04-30] MEDS ORDERED: fentaNYL 100 MCG/2 ML INJECTION IV PRN (10:25)
[2023-04-30] MEDS ORDERED: EPINEPHrine 1MG/10ML SYRINGE 1.5IN As Ordered ONE (10:45)
[2023-04-30 13:05] VITALS: BP 100/62; TEMP 96.8; O2SAT 94
== END 2023-04-30 13:05 | disposition home or self-care (01) ==
LOC: M SDC 06:08
PROVIDERS: ATTEND Specialist
DX: N83.02 Follicular cyst of left ovary (principal); E11.9 Type 2 diabetes mellitus without complications; E78.5 Hyperlipidemia, unspecified; K21.9 Gastro-esophageal reflux disease without esophagitis; M79.7 Fibromyalgia; G43.909 Migraine, unspecified, not intractable, without status migrainosus; G40.909 Epilepsy, unspecified, not intractable, without status epilepticus; F43.10 Post-traumatic stress disorder, unspecified; F41.9 Anxiety disorder, unspecified; F32.A Depression, unspecified; Z86.711 Personal history of pulmonary embolism; Z86.718 Personal history of other venous thrombosis and embolism; J44.9 Chronic obstructive pulmonary disease, unspecified; Z92.3 Personal history of irradiation; D68.51 Activated protein C resistance; F17.218 Nicotine dependence, cigarettes, with other nicotine-induced disorders; Z88.0 Allergy status to penicillin; Z88.1 Allergy status to other antibiotic agents; Z79.899 Other long term (current) drug therapy; Z79.84 Long term (current) use of oral hypoglycemic drugs; Z79.51 Long term (current) use of inhaled steroids
CPT/HCPCS: 36415; 52332; 58661; 85027; 88305; C1769; C1894; C2617; J0171; J0665; J1100; J2250; J2371; J2405; J2598; J3010; Q9968; S2900

== ENCOUNTER → 2023-05-03 | Outpatient (REF) | payer OTHER | LOC: M SFHCWAGY 09:56 | PROVIDERS: ATTEND Specialist | DX: N39.0 Urinary tract infection, site not specified (principal) ==

== ENCOUNTER → 2023-05-05 | Outpatient (CLI) | payer OTHER | LOC: M WHC 08:44 | PROVIDERS: ATTEND Specialist | DX: N12 Tubulo-interstitial nephritis, not specified as acute or chronic (principal) ==

== ENCOUNTER 2023-05-07 21:34 | Emergency (ER) | payer OTHER ==
[~2023-05-07] VITALS: Ht 165.1 cm; Wt 97.4 kg
[2023-05-07 22:23] LABS: CPK CREATINE PHOSPHOKINASE 31 U/L (34-145)
[2023-05-07 22:32] LABS: BLOOD UREA NITROGEN 13 MG/DL (9-23); CALCIUM LEVEL 8.8 MG/DL (8.5-10.1); CARBON DIOXIDE LEVEL 21 MMOL/L (20-31); CHLORIDE LEVEL 111 MMOL/L (98-107); CK-MB VALUE MASS < 1.0 NG/ML (<3.6); CREATININE FOR GFR 0.68 MG/DL (0.55-1.30); GLOMERULAR FILTRATION RATE > 60.0 (>58); GLUCOSE, FASTING 50 MG/DL (60-100); MB/CK RELATIVE INDEX 3.22 (< OR =4); POTASSIUM SERUM 2.8 MMOL/L (3.5-5.1); SODIUM LEVEL 142 MMOL/L (136-145)
[2023-05-07] MEDS ORDERED: POTASSIUM CHLORIDE 10MEQ SR TABLET PO ONE (22:35)
[2023-05-07 22:42] LABS: BASO % 0.5 % (0.0-1.0); EOS # 0.3 10^3/uL (0.0-0.5); EOS % 3.7 % (0.0-3.0); HEMATOCRIT 43.9 % (36.0-47.0); HEMOGLOBIN 16.3 g/dl (12.0-15.5); LYMPH # 3.5 10^3/uL (1.5-5.0); LYMPH % 41.1 % (24.0-44.0); MEAN CORPUSCULAR HEMOGLOBIN 32.9 pg (27.0-33.0); MEAN CORPUSCULAR HGB CONC 37.1 g/dl (32.0-36.5); MEAN CORPUSCULAR VOLUME 88.7 fl (80.0-96.0); MONO # 0.4 10^3/uL (0.0-0.8); MONO % 4.8 % (2.0-8.0); NEUTROPHILS # 4.2 10^3/uL (1.5-8.5); NEUTROPHILS % 49.5 % (36.0-66.0); PLATELET COUNT, AUTOMATED 230 10^3/uL (150-450); RED BLOOD COUNT 4.95 10^6/uL (4.00-5.40); WHITE BLOOD COUNT 8.6 10^3/uL (4.0-10.0)
[2023-05-07] MEDS ORDERED: DEXTROSE 50% 50ML SYRINGE IV STA (22:48)
[2023-05-07] MEDS ORDERED: KETOROLAC 30 MG/ML 1ML VIAL IV ONE (22:50)
[2023-05-07 22:52] LABS: MAGNESIUM LEVEL 1.7 MG/DL (1.8-2.4)
[2023-05-07] MEDS ORDERED: ISOVUE-370 76% 100ML VIAL As Ordered ONE (22:57)
[2023-05-07] MEDS ORDERED: MAGNESIUM OXIDE 400MG TAB (MAG-OX) PO ONE (23:40)
[2023-05-08 00:32] LABS: CK-MB VALUE MASS < 1.0 NG/ML (<3.6)
[2023-05-08 00:33] LABS: CPK CREATINE PHOSPHOKINASE 35 U/L (34-145); MB/CK RELATIVE INDEX 2.85 (< OR =4)
[2023-05-08 00:45] VITALS: BP 103/57; TEMP 98; O2SAT 95
== END 2023-05-08 00:58 | disposition home or self-care (01) ==
LOC: M ED 21:34
DX: R07.89 Other chest pain (principal); E87.6 Hypokalemia; E11.9 Type 2 diabetes mellitus without complications; Z86.718 Personal history of other venous thrombosis and embolism; F17.200 Nicotine dependence, unspecified, uncomplicated; Z88.0 Allergy status to penicillin; Z88.8 Allergy status to other drugs, medicaments and biological substances; Z88.2 Allergy status to sulfonamides; Z79.51 Long term (current) use of inhaled steroids; Z79.84 Long term (current) use of oral hypoglycemic drugs; Z79.899 Other long term (current) drug therapy
CPT/HCPCS: 70450; 71045; 71275; 80048; 82550; 82553; 83735; 83880; 85025; 93005; 93041; 94760; 96374; 96375; 99285; J1885; Q9967

== ENCOUNTER → 2023-06-11 | Outpatient (REF) | payer OTHER ==
[~2023-06-11] MED LIST changes: +ALBU2.5V10 INH; +CICL6.6S EXT; +ESSE250T PO; -FLUT50SP17; -FLUT50SP17 INH; +FLUTISP; +FLUTISP INH
== END ==
LOC: M SFHCWAGY 15:30
PROVIDERS: ATTEND Specialist
DX: N39.0 Urinary tract infection, site not specified (principal)

== ENCOUNTER 2023-06-15 18:50 | Emergency (ER) | payer OTHER ==
[~2023-06-15] VITALS: Ht 165.1 cm; Wt 95.3 kg
[~2023-06-15 18:50] MED LIST changes: -ALBU2.5V10 INH; -CICL6.6S EXT; -ESSE250T PO; +FLUT50SP17; +FLUT50SP17 INH; -FLUTISP; -FLUTISP INH
[2023-06-15 22:19] VITALS: BP 131/77; TEMP 97.8; O2SAT 99
== END 2023-06-15 22:21 | disposition home or self-care (01) ==
LOC: M ED 18:50
DX: F43.0 Acute stress reaction (principal); J44.9 Chronic obstructive pulmonary disease, unspecified; F20.9 Schizophrenia, unspecified; F41.9 Anxiety disorder, unspecified; F43.10 Post-traumatic stress disorder, unspecified; K58.9 Irritable bowel syndrome, unspecified; F17.200 Nicotine dependence, unspecified, uncomplicated; Z88.0 Allergy status to penicillin; Z88.1 Allergy status to other antibiotic agents; Z88.2 Allergy status to sulfonamides; Z88.8 Allergy status to other drugs, medicaments and biological substances; Z79.52 Long term (current) use of systemic steroids; Z79.02 Long term (current) use of antithrombotics/antiplatelets; Z79.83 Long term (current) use of bisphosphonates; Z79.899 Other long term (current) drug therapy

== ENCOUNTER 2023-06-29 20:32 | Emergency (ER) | payer OTHER ==
[~2023-06-29] VITALS: Ht 165.1 cm; Wt 96.0 kg
[~2023-06-29 20:32] MED LIST changes: -FLUT50SP17; -FLUT50SP17 INH; +FLUTISP; +FLUTISP INH
[2023-06-29 20:33] VITALS: BP 121/74; TEMP 96.6; O2SAT 97
== END 2023-06-29 21:20 | disposition left against medical advice (07) ==
LOC: M ED 20:32
DX: Z53.21 Procedure and treatment not carried out due to patient leaving prior to being seen by health care provider (principal)

== ENCOUNTER 2023-07-22 20:30 | Inpatient (IN) | payer OTHER ==
[~2023-07-22] VITALS: Ht 165.1 cm; Wt 96.2 kg
[2023-07-22] MEDS ORDERED: DEXTROSE 50% 50ML SYRINGE IV STA ×2 (20:47→21:32)
[2023-07-22 21:15] LABS: VENOUS BASE EXCESS -1.8 (-2.0-2.0); VENOUS HCO3 22.7 MMOL/L (23.0-27.0); VENOUS PARTIAL PRESSURE CO2 38.2 mmHg (38.0-50.0); VENOUS PARTIAL PRESSURE O2 54.9 mmHg (30.0-50.0); VENOUS PH 7.392 UNITS (7.330-7.430); VENOUS STANDARD HCO3 22.8 MMOL/L; VENOUS TOTAL CO2 23.9 MMOL/L (24.0-28.0)
[2023-07-22 21:19] LABS: BASO % 0.1 % (0.0-1.0); EOS # 0.2 10^3/uL (0.0-0.5); EOS % 2.7 % (0.0-3.0); HEMATOCRIT 41.9 % (36.0-47.0); HEMOGLOBIN 15.3 g/dl (12.0-15.5); LYMPH # 3.5 10^3/uL (1.5-5.0); LYMPH % 43.9 % (24.0-44.0); MEAN CORPUSCULAR HEMOGLOBIN 32.8 pg (27.0-33.0); MEAN CORPUSCULAR HGB CONC 36.5 g/dl (32.0-36.5); MEAN CORPUSCULAR VOLUME 89.9 fl (80.0-96.0); MONO # 0.2 10^3/uL (0.0-0.8); MONO % 2.5 % (2.0-8.0); NEUTROPHILS % 50.5 % (36.0-66.0); PLATELET COUNT, AUTOMATED 186 10^3/uL (150-450); RED BLOOD COUNT 4.66 10^6/uL (4.00-5.40); WHITE BLOOD COUNT 7.9 10^3/uL (4.0-10.0)
[2023-07-22] MEDS: D10W/0.45% SODIUM CHLORIDE 1,000 ML IV SCH ×2 (21:40→22:30)
[2023-07-22 21:58] LABS: CK-MB VALUE MASS < 1.0 NG/ML (<3.6); LIPASE 27 U/L (12-53)
[2023-07-22 22:02] LABS: THYROID STIMULATING HORMONE 1.308 uIU/ML (0.55-4.78)
[2023-07-22 22:05] LABS: ALBUMIN 3.7 G/DL (3.2-5.2); ALKALINE PHOSPHATASE 54 U/L (46-116); ALT/SGPT 13 U/L (7.0-40); AST/SGOT 10 U/L (<34); BILIRUBIN,DIRECT 0.1 MG/DL (<0.4); BILIRUBIN,TOTAL 0.4 MG/DL (0.3-1.2); BLOOD UREA NITROGEN 8 MG/DL (9-23); CALCIUM LEVEL 8.3 MG/DL (8.5-10.1); CARBON DIOXIDE LEVEL 23 MMOL/L (20-31); CHLORIDE LEVEL 109 MMOL/L (98-107); CPK CREATINE PHOSPHOKINASE 26 U/L (34-145); CREATININE FOR GFR 0.64 MG/DL (0.55-1.30); GLOMERULAR FILTRATION RATE > 60.0 (>58); GLUCOSE, FASTING 182 MG/DL (60-100); MB/CK RELATIVE INDEX 3.84 (< OR =4); POTASSIUM SERUM 2.9 MMOL/L (3.5-5.1); SODIUM LEVEL 138 MMOL/L (136-145); TOTAL PROTEIN 5.9 G/DL (5.7-8.2)
[2023-07-22] MEDS ORDERED: POTASSIUM CHLORIDE 10MEQ SR TABLET PO ONE (23:10)
[2023-07-22] MEDS ORDERED: KCL 10MEQ/100ML SWI (KRUN) 10 MEQ in IV 1 EA IV ONE (23:10)
[2023-07-22 23:51] LABS: CK-MB VALUE MASS < 1.0 NG/ML (<3.6)
[2023-07-22 23:52] LABS: CPK CREATINE PHOSPHOKINASE 26 U/L (34-145); MB/CK RELATIVE INDEX 3.84 (< OR =4)
[2023-07-23] MEDS ORDERED: KCL 10MEQ/100ML SWI (KRUN) 10 MEQ in IV 1 EA IV ONE ×3 (01:00)
[2023-07-23] MEDS ORDERED: MOM 30ML SUSPENSION UDC PO PRN (01:25)
[2023-07-23] MEDS ORDERED: GLUCOSE 4GM CHEW TABLET PO PRN (01:25)
[2023-07-23] MEDS ORDERED: ACETAMINOPHEN TAB 650MG DOSE (2X325MG) PO PRN (01:25)
[2023-07-23] MEDS ORDERED: GLUCAGON INJ 1MG VIAL SC PRN (01:25)
[2023-07-23] MEDS ORDERED: MAALOX 30 ML SUSP *UDC PO PRN (01:25)
[2023-07-23] MEDS: DEXTROSE 50% 50ML SYRINGE IV PRN ×2 (02:08→03:56)
[2023-07-23] MEDS ORDERED: ESSE250T PO (02:09)
[2023-07-23] MEDS ORDERED: MONT10TA97 PO (02:09)
[2023-07-23] MEDS ORDERED: ALBU8.5H INH (02:09)
[2023-07-23] MEDS ORDERED: ATOR1TAB21 PO (02:09)
[2023-07-23] MEDS ORDERED: METF-838 PO (02:09)
[2023-07-23] MEDS ORDERED: OMEP-173 PO (02:09)
[2023-07-23] MEDS ORDERED: ALBU2.5V10 INH (02:09)
[2023-07-23] MEDS ORDERED: CICL6.6S EXT (02:09)
[2023-07-23] MEDS ORDERED: ELIQ5TAB PO (02:18)
[2023-07-23] MEDS ORDERED: HOME MED LIST COMPLETE! XX SCH (02:20)
[2023-07-23] MEDS ORDERED: ALBUTEROL 90 MCG/ACT 8GM HFA INHALER INH PRN (03:00)
[2023-07-23] MEDS ORDERED: ALBUTEROL SULFATE 2.5MG/0.5ML INH NEB SOLN INH PRN (03:00)
[2023-07-23 03:54] VITALS: BP 100/58; TEMP 96.7; O2SAT 98
[2023-07-23] MEDS: POTASSIUM CHLORIDE INJ 20 MEQ in D10W/0.45% SODIUM CHLORIDE 1,000 ML IV SCH ×2 (05:07→10:18)
[2023-07-23] MEDS ORDERED: DEXTROSE 50% 50ML SYRINGE IV STA (06:16)
[2023-07-23 06:33] LABS: BLOOD UREA NITROGEN 8 MG/DL (9-23); CARBON DIOXIDE LEVEL 24 MMOL/L (20-31); CHLORIDE LEVEL 113 MMOL/L (98-107); GLOMERULAR FILTRATION RATE > 60.0 (>58); GLUCOSE, FASTING 67 MG/DL (60-100); MAGNESIUM LEVEL 1.9 MG/DL (1.8-2.4); POTASSIUM SERUM 4.4 MMOL/L (3.5-5.1); SODIUM LEVEL 141 MMOL/L (136-145)
[2023-07-23] MEDS: INSULIN LISPRO (NovoLOG) PER UNIT SC SCH ×2 (07:30→12:00)
[2023-07-23 07:57] VITALS: BP 105/69; TEMP 97.9; O2SAT 98
[2023-07-23] MEDS ORDERED: APIXABAN 5 MG TAB (ELIQUIS) PO SCH (09:00)
[2023-07-23] MEDS ORDERED: MAGNESIUM OXIDE 400MG TAB (MAG-OX) PO SCH (09:00)
[2023-07-23] MEDS ORDERED: DOCUSATE SODIUM 100MG CAPSULE PO SCH (09:00)
[2023-07-23] MEDS ORDERED: ENOXAPARIN 40MG/0.4ML SYRINGE (J1650 PER 10MG) SC SCH (09:00)
[2023-07-23 11:47] VITALS: BP 108/57; TEMP 98; O2SAT 94
[2023-07-23 14:33] VITALS: BP 115/62; TEMP 97.5; O2SAT 97
[2023-07-23] MEDS ORDERED: INSULIN LISPRO (NovoLOG) PER UNIT SC SCH (21:00)
[2023-07-23] MEDS ORDERED: OMEPRAZOLE 20MG CAP PO SCH (21:00)
[2023-07-23] MEDS ORDERED: ATORVASTATIN 20 MG TAB PO SCH (21:00)
[2023-07-23] MEDS ORDERED: MONTELUKAST 10 MG TAB PO SCH (21:00)
== END 2023-07-23 16:08 | disposition left against medical advice (07) | DRG 420 ==
LOC: M ED 20:30 → EDBD 20:30 → M ED INP 07-23 01:22 → M ICU 07-23 03:44 → M MSPAV 07-23 14:31
PROVIDERS: ADMIT Internal Medicine; ATTEND Internal Medicine
DX: E11.649 Type 2 diabetes mellitus with hypoglycemia without coma (principal); F20.0 Paranoid schizophrenia; F68.10 Factitious disorder imposed on self, unspecified; J44.9 Chronic obstructive pulmonary disease, unspecified; J45.909 Unspecified asthma, uncomplicated; K21.9 Gastro-esophageal reflux disease without esophagitis; D68.51 Activated protein C resistance; Z79.01 Long term (current) use of anticoagulants; E78.5 Hyperlipidemia, unspecified; Z86.718 Personal history of other venous thrombosis and embolism; Z86.711 Personal history of pulmonary embolism; N83.202 Unspecified ovarian cyst, left side; F41.9 Anxiety disorder, unspecified; F32.A Depression, unspecified; F43.10 Post-traumatic stress disorder, unspecified; E87.6 Hypokalemia; Z91.128 Patient's intentional underdosing of medication regimen for other reason; Z88.0 Allergy status to penicillin; Z88.8 Allergy status to other drugs, medicaments and biological substances; Z79.899 Other long term (current) drug therapy; F17.210 Nicotine dependence, cigarettes, uncomplicated; E78.00 Pure hypercholesterolemia, unspecified

== ENCOUNTER 2023-10-06 21:14 | Emergency (ER) | payer OTHER ==
[~2023-10-06] VITALS: Ht 165.1 cm; Wt 95.5 kg
[2023-10-06 21:14] VITALS: BP 121/79; TEMP 97.7; O2SAT 95
[~2023-10-06 21:14] MED LIST changes: +ALBU2.5V10 INH; +CICL6.6S EXT; +ESSE250T PO; -KLON0.5T PO; +KLON0.5T8 PO; -RISP-7 PO; +RISP0.5T82 PO
== END 2023-10-07 00:08 | disposition left against medical advice (07) ==
LOC: M ED 21:14
DX: Z53.21 Procedure and treatment not carried out due to patient leaving prior to being seen by health care provider (principal)

== ENCOUNTER 2023-11-25 23:12 | Emergency (ER) | payer OTHER ==
[~2023-11-25] VITALS: Ht 165.1 cm; Wt 100.0 kg
[~2023-11-25 23:12] MED LIST changes: +DOXY-323 PO; -DOXY-443 PO
[2023-11-25 23:24] VITALS: TEMP 98
[2023-11-25] MEDS ORDERED: FAMOTIDINE 20MG/2ML VIAL As Ordered ONE (23:47)
[2023-11-25] MEDS: FAMOTIDINE 20MG/2ML VIAL IVP ONE (23:48)
[2023-11-26 00:01] VITALS: BP 108/73; O2SAT 94
[2023-11-26 00:06] LABS: CPK CREATINE PHOSPHOKINASE 50 U/L (34-145)
[2023-11-26 00:07] LABS: BLOOD UREA NITROGEN 8 MG/DL (9-23); CARBON DIOXIDE LEVEL 25 MMOL/L (20-31); CHLORIDE LEVEL 107 MMOL/L (98-107); CK-MB VALUE MASS < 1.0 NG/ML (<3.6); CREATININE FOR GFR 0.69 MG/DL (0.55-1.30); GLOMERULAR FILTRATION RATE > 60.0 (>58); GLUCOSE, FASTING 92 MG/DL (60-100); HCG, SERUM QUALITATIVE NEGATIVE (NEGATIVE); POTASSIUM SERUM 3.8 MMOL/L (3.5-5.1); SODIUM LEVEL 138 MMOL/L (136-145)
[2023-11-26 00:10] LABS: THYROID STIMULATING HORMONE 1.911 uIU/ML (0.55-4.78)
[2023-11-26 00:12] LABS: BASO % 0.6 % (0.0-1.0); EOS # 0.1 10^3/uL (0.0-0.5); EOS % 1.6 % (0.0-3.0); HEMATOCRIT 42.8 % (36.0-47.0); HEMOGLOBIN 15.4 g/dl (12.0-15.5); LYMPH # 2.3 10^3/uL (1.5-5.0); LYMPH % 32.8 % (24.0-44.0); MEAN CORPUSCULAR HEMOGLOBIN 32.2 pg (27.0-33.0); MEAN CORPUSCULAR VOLUME 89.5 fl (80.0-96.0); MONO # 0.4 10^3/uL (0.0-0.8); MONO % 5.4 % (2.0-8.0); NEUTROPHILS # 4.2 10^3/uL (1.5-8.5); NEUTROPHILS % 58.8 % (36.0-66.0); PLATELET COUNT, AUTOMATED 178 10^3/uL (150-450); RED BLOOD COUNT 4.78 10^6/uL (4.00-5.40); WHITE BLOOD COUNT 7.1 10^3/uL (4.0-10.0)
[2023-11-26 01:02] LABS: CK-MB VALUE MASS < 1.0 NG/ML (<3.6)
[2023-11-26 01:11] LABS: CPK CREATINE PHOSPHOKINASE 40 U/L (34-145)
== END 2023-11-26 00:56 | disposition left against medical advice (07) ==
LOC: M ED 23:12
DX: Z53.21 Procedure and treatment not carried out due to patient leaving prior to being seen by health care provider (principal)
CPT/HCPCS: 71045; 80048; 82550; 82553; 84443; 84703; 85025; 93041; 94760; 99284; S0028

== ENCOUNTER 2023-12-06 04:29 | Emergency (ER) | payer OTHER ==
[~2023-12-06] VITALS: Ht 165.1 cm; Wt 96.9 kg
[2023-12-06 05:39] LABS: BASO % 0.4 % (0.0-1.0); EOS # 0.1 10^3/uL (0.0-0.5); EOS % 1.1 % (0.0-3.0); HEMATOCRIT 42.4 % (36.0-47.0); HEMOGLOBIN 15.5 g/dl (12.0-15.5); LYMPH # 2.8 10^3/uL (1.5-5.0); LYMPH % 37.8 % (24.0-44.0); MEAN CORPUSCULAR HEMOGLOBIN 32.2 pg (27.0-33.0); MEAN CORPUSCULAR VOLUME 88.1 fl (80.0-96.0); MONO # 0.5 10^3/uL (0.0-0.8); MONO % 6.1 % (2.0-8.0); NEUTROPHILS % 54.3 % (36.0-66.0); PLATELET COUNT, AUTOMATED 179 10^3/uL (150-450); RED BLOOD COUNT 4.81 10^6/uL (4.00-5.40); WHITE BLOOD COUNT 7.4 10^3/uL (4.0-10.0)
[2023-12-06 05:39] LABS: APPEARANCE, URINE HAZY (CLEAR); BACTERIA, URINE AUTO 1+ (NEGATIVE); BILIRUBIN, URINE AUTO NEGATIVE (NEGATIVE); BLOOD, URINE BLOOD 2+ (NEGATIVE); COLOR, URINE YELLOW (YELLOW); GLUCOSE, URINE (UA) AUTO NEGATIVE (NEGATIVE); KETONE, URINE AUTO NEGATIVE (NEGATIVE); LEUKOCYTE ESTERASE, URINE AUTO NEGATIVE (NEGATIVE); MUCUS, URINE SMALL (NEGATIVE); NITRITE, URINE AUTO NEGATIVE (NEGATIVE); PROTEIN, URINE AUTO NEGATIVE (NEGATIVE); RBC, URINE AUTO 8 /HPF (0-3); SQUAMOUS EPITHELIAL CELL UR AU 4 /HPF (0-6); WBC, URINE AUTO 1 /HPF (0-3)
[2023-12-06 05:50] LABS: MEAN CORPUSCULAR HGB CONC 36.6 g/dl (32.0-36.5)
[2023-12-06 05:59] LABS: LIPASE 34 U/L (12-53)
[2023-12-06 06:02] LABS: ALBUMIN 3.9 G/DL (3.2-5.2); ALKALINE PHOSPHATASE 65 U/L (46-116); ALT/SGPT 9 U/L (7.0-40); AST/SGOT < 8 U/L (<34); BILIRUBIN,DIRECT 0.2 MG/DL (<0.4); BILIRUBIN,TOTAL 0.5 MG/DL (0.3-1.2); BLOOD UREA NITROGEN 10 MG/DL (9-23); CALCIUM LEVEL 8.9 MG/DL (8.5-10.1); CARBON DIOXIDE LEVEL 24 MMOL/L (20-31); CHLORIDE LEVEL 110 MMOL/L (98-107); CREATININE FOR GFR 0.67 MG/DL (0.55-1.30); GLOMERULAR FILTRATION RATE > 60.0 (>58); GLUCOSE, FASTING 105 MG/DL (60-100); POTASSIUM SERUM 3.6 MMOL/L (3.5-5.1); SODIUM LEVEL 141 MMOL/L (136-145); TOTAL PROTEIN 6.6 G/DL (5.7-8.2)
[2023-12-06] MEDS ORDERED: ISOVUE-370 76% 100ML VIAL As Ordered ONE (06:51)
[2023-12-06] MEDS: ONDANSETRON 4MG 2ML VIAL IV ONE (06:59)
[2023-12-06] MEDS: MORPHINE 2 MG/ML 1ML VIAL IV ONE (06:59)
[2023-12-06 07:52] VITALS: BP 111/59; TEMP 97.4; O2SAT 93
== END 2023-12-06 08:49 | disposition home or self-care (01) ==
LOC: M ED 04:29
DX: R10.9 Unspecified abdominal pain (principal); N83.292 Other ovarian cyst, left side; M32.9 Systemic lupus erythematosus, unspecified; F17.200 Nicotine dependence, unspecified, uncomplicated; Z86.79 Personal history of other diseases of the circulatory system; Z86.718 Personal history of other venous thrombosis and embolism; Z79.01 Long term (current) use of anticoagulants; Z88.0 Allergy status to penicillin; Z88.1 Allergy status to other antibiotic agents; Z88.5 Allergy status to narcotic agent; Z88.6 Allergy status to analgesic agent; Z88.8 Allergy status to other drugs, medicaments and biological substances; Z79.52 Long term (current) use of systemic steroids; Z79.02 Long term (current) use of antithrombotics/antiplatelets; Z79.4 Long term (current) use of insulin; Z79.899 Other long term (current) drug therapy
CPT/HCPCS: 74177; 80048; 80076; 81001; 83690; 85025; 96374; 99284; J2405; Q9967

== ENCOUNTER → 2023-12-07 | Outpatient (CLI) | payer OTHER ==
[2023-12-07 18:31] LABS: BASO % 0.5 % (0.0-1.0); EOS # 0.1 10^3/uL (0.0-0.5); EOS % 1.2 % (0.0-3.0); HEMOGLOBIN 15.6 g/dl (12.0-15.5); LYMPH # 2.1 10^3/uL (1.5-5.0); MEAN CORPUSCULAR HEMOGLOBIN 32.6 pg (27.0-33.0); MEAN CORPUSCULAR HGB CONC 36.3 g/dl (32.0-36.5); MEAN CORPUSCULAR VOLUME 89.8 fl (80.0-96.0); MONO # 0.5 10^3/uL (0.0-0.8); MONO % 5.7 % (2.0-8.0); NEUTROPHILS # 5.4 10^3/uL (1.5-8.5); NEUTROPHILS % 66.4 % (36.0-66.0); PLATELET COUNT, AUTOMATED 196 10^3/uL (150-450); RED BLOOD COUNT 4.79 10^6/uL (4.00-5.40); WHITE BLOOD COUNT 8.1 10^3/uL (4.0-10.0)
[2023-12-07 19:12] LABS: ALBUMIN 4.1 G/DL (3.2-5.2); ALKALINE PHOSPHATASE 65 U/L (46-116); ALT/SGPT 11 U/L (7.0-40); AST/SGOT 10 U/L (<34); BILIRUBIN,TOTAL 0.5 MG/DL (0.3-1.2); BLOOD UREA NITROGEN 10 MG/DL (9-23); CALCIUM LEVEL 9.3 MG/DL (8.5-10.1); CARBON DIOXIDE LEVEL 24 MMOL/L (20-31); CHLORIDE LEVEL 105 MMOL/L (98-107); CHOLESTEROL LEVEL 219 MG/DL (<200); CHOLESTEROL RISK RATIO 5.82 (<5); GLOMERULAR FILTRATION RATE > 60.0 (>58); GLUCOSE, FASTING 111 MG/DL (60-100); HDL CHOLESTEROL 37.6 MG/DL (>40); LDL CHOLESTEROL 150.6 MG/DL (<100); NON-HDL-C 181.4 MG/DL; SODIUM LEVEL 136 MMOL/L (136-145); TOTAL PROTEIN 6.8 G/DL (5.7-8.2); TRIGLYCERIDES LEVEL 154 MG/DL (<150)
[2023-12-07 19:14] LABS: THYROID STIMULATING HORMONE 1.723 uIU/ML (0.55-4.78)
== END ==
LOC: M PLALAB 15:10
PROVIDERS: ATTEND Nurse Practitioner Family
DX: M32.9 Systemic lupus erythematosus, unspecified (principal)

== ENCOUNTER → 2023-12-07 | Outpatient (CLI) | payer OTHER ==
[2023-12-07 19:13] LABS: FOLLICLE STIMULATING HORMONE 7.6 mIU/ML; LUTEINIZING HORMONE 11.2 mIU/ML
== END ==
LOC: M PLALAB 15:13
PROVIDERS: ATTEND Specialist
DX: N95.9 Unspecified menopausal and perimenopausal disorder (principal)

== ENCOUNTER 2024-01-07 11:59 | Observation (INO) | payer OTHER ==
[2024-01-07] VITALS (8 sets, daily range): BP systolic 95–111; BP diastolic 54–72; TEMP 96.4–97.8; O2SAT 93–100
[~2024-01-07] VITALS: Ht 165.1 cm; Wt 95.1 kg
[~2024-01-07 11:59] MED LIST changes: +FLUO-96 PO; +NORE5TAB PO; +ONDA-282 PO; -ONDA4TAB6 PO; +OXYC5CAP56 PO; +TRAZ-186 PO
[2024-01-07] MEDS: LR 1,000 ML IV SCH ×2 (13:01→20:53)
[2024-01-07] MEDS ORDERED: ROCURONIUM BROMIDE 50MG/5ML VIAL As Ordered ONE (13:02)
[2024-01-07] MEDS ORDERED: fentaNYL 100 MCG/2 ML INJECTION As Ordered ONE (13:02)
[2024-01-07] MEDS ORDERED: LIDOCAINE 2% 100MG/5ML SDV (FOR ANES.) As Ordered ONE (13:02)
[2024-01-07] MEDS ORDERED: MIDAZOLAM INJ 2MG/2ML VIAL As Ordered ONE (13:02)
[2024-01-07] MEDS ORDERED: propofoL 200 MG/20 ML VIAL As Ordered ONE (13:02)
[2024-01-07] MEDS: INDOCYANINE GREEN 25MG VIAL (IC-GREEN) As Ordered ONE (15:15)
[2024-01-07] MEDS: METHYLENE BLUE 0.5% (5MG/ML) 10 ML AMP (PROVAYBLUE) As Ordered ONE (15:16)
[2024-01-07] MEDS ORDERED: GLYCOPYRROLATE INJ 0.2 MG/ML 2 ML VIAL As Ordered ONE (15:31)
[2024-01-07] MEDS ORDERED: dexmedeTOMIDine (4MCG/ML)200MCG/50ML BTL (PRECEDEX) As Ordered ONE (16:11)
[2024-01-07] MEDS ORDERED: KETOROLAC 60MG 2ML VIAL As Ordered ONE (16:17)
[2024-01-07] MEDS ORDERED: SUGAMMADEX SODIUM 500 MG/5 ML VIAL (BRIDION) As Ordered ONE (16:19)
[2024-01-07] MEDS ORDERED: fentaNYL 100 MCG/2 ML INJECTION IV PRN (16:35)
[2024-01-07] MEDS ORDERED: oxyCODONE 5MG TAB PO PRN (16:35)
[2024-01-07] MEDS ORDERED: ONDANSETRON 4MG 2ML VIAL IV PRN (16:35)
[2024-01-07] MEDS: KETOROLAC 30 MG/ML 1ML VIAL IV ONE (17:02)
[2024-01-07] MEDS ORDERED: HYDROMORPHONE HCL 0.5 MG/ 0.5 ML SYRINGE IV PRN (17:05)
[2024-01-07] MEDS: ONDANSETRON 4MG 2ML VIAL IV PRN (18:51)
[2024-01-07] MEDS: oxyCODONE 5MG TAB PO PRN (18:52)
[2024-01-07] MEDS ORDERED: CETI-24 PO (19:00)
[2024-01-07] MEDS ORDERED: HEPA500023 SC (19:00)
[2024-01-07] MEDS ORDERED: FLUT15.820 NARES (19:00)
[2024-01-07] MEDS ORDERED: HOME MED LIST COMPLETE! XX SCH (19:05)
[2024-01-07] MEDS: FLUoxetine 20MG CAP PO SCH (20:53)
[2024-01-07] MEDS: DOCUSATE SODIUM 100MG CAPSULE PO SCH (20:54)
[2024-01-07] MEDS: FLUTICASONE PROP 0.05% NASAL SPRAY 16 GM (FLONASE) NARES SCH (20:54)
[2024-01-07] MEDS ORDERED: methocarbamoL 750 MG TAB PO SCH (21:00)
[2024-01-07] MEDS ORDERED: NORTRIPTYLINE 10 MG CAP PO SCH (21:00)
[2024-01-07] MEDS ORDERED: MELOXICAM (MOBIC) 7.5 MG TAB PO SCH (21:00)
[2024-01-07] MEDS ORDERED: LORazepam 0.5 MG TAB PO SCH (21:00)
[2024-01-07] MEDS: SIMETHICONE 80MG CHEW TAB PO PRN (23:46)
[2024-01-08 04:00] VITALS: BP 103/55; TEMP 97.8; O2SAT 95
[2024-01-08 06:47] VITALS: BP 100/54; TEMP 97.8; O2SAT 94
[2024-01-08 08:00] VITALS: BP 105/59; TEMP 98.1; O2SAT 94
[2024-01-08] MEDS: APIXABAN 5 MG TAB (ELIQUIS) PO SCH (08:34)
[2024-01-08] MEDS ORDERED: SERTRALINE HCL 25 MG TABLET PO SCH (09:00)
[2024-01-08] MEDS: CETIRIZINE (ZyrTEC) 10 MG TAB PO SCH (09:00)
[2024-01-08] MEDS ORDERED: LORATADINE 10 MG TAB PO SCH (09:00)
[2024-01-08 12:00] VITALS: BP 104/60; TEMP 97.9; O2SAT 92
[2024-01-08] MEDS ORDERED: OXYC-517 PO (16:09)
[2024-01-08] MEDS ORDERED: COLA100C5 PO (16:09)
== END 2024-01-08 16:22 | disposition home or self-care (01) ==
LOC: M SDC 11:59 → M ED INP 16:54 → M OBS 17:40 → M MSPAV 18:18
PROVIDERS: ADMIT Specialist; ATTEND Specialist
DX: N83.202 Unspecified ovarian cyst, left side (principal); R10.2 Pelvic and perineal pain; M32.9 Systemic lupus erythematosus, unspecified; F43.10 Post-traumatic stress disorder, unspecified; E78.5 Hyperlipidemia, unspecified; M79.7 Fibromyalgia; Z85.3 Personal history of malignant neoplasm of breast; Z86.711 Personal history of pulmonary embolism; G43.909 Migraine, unspecified, not intractable, without status migrainosus; F41.9 Anxiety disorder, unspecified; F32.A Depression, unspecified; Z79.51 Long term (current) use of inhaled steroids; Z79.899 Other long term (current) drug therapy; Z88.0 Allergy status to penicillin; Z88.8 Allergy status to other drugs, medicaments and biological substances; J44.9 Chronic obstructive pulmonary disease, unspecified
CPT/HCPCS: 52332; 58662; 88305; 96361; 96374; C1751; C1769; J0665; J1100; J1885; J2250; J2405; J3010; Q9968; S2900

== ENCOUNTER → 2024-02-18 | Outpatient (CLI) | payer OTHER ==
[~2024-02-18] MED LIST changes: +CETI-24 PO; +FLUT15.820 NARES; +HEPA500023 SC
== END ==
LOC: M WHC 09:25
PROVIDERS: ATTEND Nurse Practitioner Family
DX: Z12.31 Encounter for screening mammogram for malignant neoplasm of breast (principal); R92.323 Mammographic fibroglandular density, bilateral breasts; Z80.3 Family history of malignant neoplasm of breast

== ENCOUNTER → 2024-02-18 | Outpatient (REF) | payer OTHER | LOC: M SFHCWAGY 12:33 | PROVIDERS: ATTEND Nurse Practitioner Family | DX: Z12.72 Encounter for screening for malignant neoplasm of vagina (principal); N89.8 Other specified noninflammatory disorders of vagina ==

== ENCOUNTER 2024-04-09 00:46 | Emergency (ER) | payer OTHER ==
[~2024-04-09] VITALS: Ht 165.1 cm; Wt 93.7 kg
[2024-04-09 00:47] VITALS: BP 121/78; TEMP 97.4; O2SAT 95
== END 2024-04-09 01:45 | disposition left against medical advice (07) ==
LOC: M ED 00:46
DX: Z53.21 Procedure and treatment not carried out due to patient leaving prior to being seen by health care provider (principal)

== ENCOUNTER → 2024-05-19 | Outpatient (CLI) | payer OTHER ==
[~2024-05-19] MED LIST changes: -ARIP10TA32 PO; +ARIP10TA63 PO; -DOXY-323 PO; +DOXY-441 PO
== END ==
LOC: M RAD 11:33
PROVIDERS: ATTEND Internal Medicine Rheumatology
DX: M32.9 Systemic lupus erythematosus, unspecified (principal); M46.1 Sacroiliitis, not elsewhere classified

== ENCOUNTER → 2024-08-28 | Outpatient (CLI) | payer OTHER ==
[~2024-08-28] MED LIST changes: +BUDE180A2 INH; -BUDE180INH INH; +BUDE90AE INH; -LIDO1CRE2 TOP; +LIDO4CRE12 TOP; -LIDO4CRE4 EXT; +LIDO5CRE7 EXT; -NEOM1SOL13; +NEOM1SOL21; -PULM90IN INH
[2024-08-28 11:36] LABS: APPEARANCE, URINE HAZY (CLEAR); BACTERIA, URINE AUTO 3+ (NEGATIVE); BILIRUBIN, URINE AUTO NEGATIVE (NEGATIVE); BLOOD, URINE BLOOD 2+ (NEGATIVE); COLOR, URINE YELLOW (YELLOW); GLUCOSE, URINE (UA) AUTO NEGATIVE (NEGATIVE); KETONE, URINE AUTO NEGATIVE (NEGATIVE); LEUKOCYTE ESTERASE, URINE AUTO NEGATIVE (NEGATIVE); NITRITE, URINE AUTO NEGATIVE (NEGATIVE); PROTEIN, URINE AUTO NEGATIVE (NEGATIVE); RBC, URINE AUTO 1 /HPF (0-3); SPECIFIC GRAVITY URINE AUTO 1.004 (1.002-1.035); SQUAMOUS EPITHELIAL CELL UR AU 5 /HPF (0-6); UROBILINOGEN, URINE AUTO 0.2 mg/dL (0.0-2.0); WBC, URINE AUTO 1 /HPF (0-3)
[2024-08-28 11:40] LABS: BASO % 0.5 % (0.0-1.0); EOS # 0.1 10^3/uL (0.0-0.5); HEMATOCRIT 45.2 % (36.0-47.0); LYMPH % 31.2 % (24.0-44.0); MEAN CORPUSCULAR HEMOGLOBIN 32.4 pg (27.0-33.0); MEAN CORPUSCULAR HGB CONC 35.4 g/dl (32.0-36.5); MEAN CORPUSCULAR VOLUME 91.5 fl (80.0-96.0); MONO # 0.4 10^3/uL (0.0-0.8); NEUTROPHILS # 3.9 10^3/uL (1.5-8.5); PLATELET COUNT, AUTOMATED 185 10^3/uL (150-450); RED BLOOD COUNT 4.94 10^6/uL (4.00-5.40); WHITE BLOOD COUNT 6.5 10^3/uL (4.0-10.0)
[2024-08-28 12:03] LABS: HEMOGLOBIN A1c 5.2 % (4.0-6.0)
[2024-08-28 12:06] LABS: CREATININE, URINE 36.5 MG/DL; MALB URINE SIEMENS < 3.0 MG/L
[2024-08-28 12:08] LABS: FERRITIN 30.2 NG/ML (7.3-270.7); THYROID STIMULATING HORMONE 4.314 uIU/ML (0.55-4.78)
[2024-08-28 12:10] LABS: TOTAL 25(OH) VITAMIN D 20.5 NG/ML (20.0-100.0)
[2024-08-28 12:12] LABS: VITAMIN B12 LEVEL 245 PG/ML (211-911)
[2024-08-28 12:14] LABS: ALKALINE PHOSPHATASE 56 U/L (35-104); ALT/SGPT 18 U/L (7.0-40); AST/SGOT 11 U/L (<34); BILIRUBIN,TOTAL 0.4 MG/DL (0.3-1.2); BLOOD UREA NITROGEN 7 MG/DL (9-23); CALCIUM LEVEL 8.9 MG/DL (8.5-10.1); CARBON DIOXIDE LEVEL 24 MMOL/L (20-31); CHLORIDE LEVEL 112 MMOL/L (98-107); CHOLESTEROL LEVEL 190 MG/DL (<200); CHOLESTEROL RISK RATIO 5.01 (<5); GLOMERULAR FILTRATION RATE > 60.0 (>58); GLUCOSE, FASTING 106 MG/DL (60-100); HDL CHOLESTEROL 37.9 MG/DL (>40); IRON (FE) 46 UG/DL (50-170); LDL CHOLESTEROL 132.5 MG/DL (<100); NON-HDL-C 152.1 MG/DL; PERCENT SATURATION 15.2 % (13.2-45.0); POTASSIUM SERUM 4.1 MMOL/L (3.5-5.1); SODIUM LEVEL 143 MMOL/L (136-145); TOTAL IRON BINDING CAPACITY 302 UG/DL (250-425); TOTAL PROTEIN 7.1 G/DL (5.7-8.2); TRIGLYCERIDES LEVEL 98 MG/DL (<150)
[2024-08-28 12:15] LABS: FOLATE 18.21 NG/ML (>5.4)
== END ==
LOC: M PLALAB 08:38
PROVIDERS: ATTEND Nurse Practitioner Family
DX: E78.5 Hyperlipidemia, unspecified (principal); F41.8 Other specified anxiety disorders; E66.9 Obesity, unspecified; R31.9 Hematuria, unspecified

== ENCOUNTER → 2024-10-11 | Emergency (ER) | payer OTHER ==
[~2024-10-11] VITALS: Ht 165.1 cm; Wt 113.6 kg
[~2024-10-11] MED LIST changes: +BUSP1TAB; +CORTOTSO; -NEOM1SOL21
[2024-10-11 01:52] VITALS: BP 127/76; TEMP 97.8; O2SAT 100
== END | disposition left against medical advice (07) ==
LOC: M ED 01:49
DX: Z53.21 Procedure and treatment not carried out due to patient leaving prior to being seen by health care provider (principal)

== ENCOUNTER 2024-10-19 22:48 | Emergency (ER) | payer OTHER ==
[~2024-10-19] VITALS: Ht 165.1 cm; Wt 110.0 kg
[~2024-10-19 22:48] MED LIST changes: -BUSP1TAB
[2024-10-19 23:00] VITALS: BP 121/60; TEMP 97.3; O2SAT 96
[2024-10-19] MEDS ORDERED: BUSP1TAB (23:10)
== END 2024-10-19 23:45 | disposition left against medical advice (07) ==
LOC: EDBD 22:48 → M ED 22:48 → EDUNIT# 22:48 → M ED 23:45
DX: Z53.21 Procedure and treatment not carried out due to patient leaving prior to being seen by health care provider (principal)

== ENCOUNTER → 2025-01-30 | Outpatient (REF) | payer OTHER ==
[~2025-01-30] MED LIST changes: -ABIL400I IM; +ARIP400S IM; +BUSP1TAB PO; -ESSE250T PO; +HYDR200T46 PO; +LIDO1ADH93 TOP; -LIDO5DIS41 TOP; +MAGN250T17 PO; -NYST-13 TOP; +NYST0.1C TOP; +POLY510P14 PO; +PREG300C2 PO
[2025-01-30 13:43] LABS: APPEARANCE, URINE CLEAR (CLEAR); BACTERIA, URINE AUTO NEGATIVE (NEGATIVE); BILIRUBIN, URINE AUTO NEGATIVE (NEGATIVE); BLOOD, URINE BLOOD 2+ (NEGATIVE); GLUCOSE, URINE (UA) AUTO NEGATIVE (NEGATIVE); KETONE, URINE AUTO NEGATIVE (NEGATIVE); LEUKOCYTE ESTERASE, URINE AUTO NEGATIVE (NEGATIVE); MUCUS, URINE SMALL (NEGATIVE); NITRITE, URINE AUTO NEGATIVE (NEGATIVE); PROTEIN, URINE AUTO 2+ mg/dL (NEGATIVE); RBC, URINE AUTO 52 /HPF (0-3); SPECIFIC GRAVITY URINE AUTO 1.006 (1.002-1.035); SQUAMOUS EPITHELIAL CELL UR AU 1 /HPF (0-6); UROBILINOGEN, URINE AUTO 0.2 mg/dL (0.0-2.0); WBC, URINE AUTO 2 /HPF (0-3)
== END ==
LOC: M SMT 12:41
PROVIDERS: ATTEND Nurse Practitioner Family
DX: R33.9 Retention of urine, unspecified (principal)

== ENCOUNTER 2025-03-19 06:12 | Inpatient (IN) | payer OTHER, MEDICAID ==
[~2025-03-19] VITALS: Ht 165.1 cm; Wt 102.1 kg
[2025-03-19] VITALS (8 sets, daily range): BP systolic 97–113; BP diastolic 50–75; TEMP 97.3–97.7; O2SAT 94–96
[2025-03-19 06:37] LABS: PLATELET COUNT, AUTOMATED 173 10^3/uL (150-450)
[2025-03-19] MEDS ORDERED: ONDANSETRON 4MG 2ML VIAL As Ordered ONE (06:57)
[2025-03-19] MEDS ORDERED: ROCURONIUM BROMIDE 50MG/5ML VIAL As Ordered ONE (06:57)
[2025-03-19] MEDS ORDERED: MIDAZOLAM INJ 2 MG/2 ML VIAL As Ordered ONE (06:57)
[2025-03-19] MEDS ORDERED: LIDOCAINE 2% INJ 100 MG/5 ML SYRINGE As Ordered ONE (06:57)
[2025-03-19] MEDS ORDERED: dexAMETHasone 4 MG/ML 1 ML VIAL As Ordered ONE (06:57)
[2025-03-19] MEDS: LR 1,000 ML IV SCH ×3 (07:19→12:03)
[2025-03-19] MEDS ORDERED: HYDROmorphone HCL 2 MG/ML 1 ML VIAL As Ordered ONE (07:51)
[2025-03-19] MEDS ORDERED: ALBUTEROL 6.7 GM INHALER **FOR ANES. CART/OMNICELL ONLY As Ordered ONE (08:01)
[2025-03-19] MEDS: INDOCYANINE GREEN 25 MG VIAL As Ordered ONE (08:18)
[2025-03-19] MEDS: METHYLENE BLUE 0.5% (5 MG/ML) 10 ML AMP As Ordered ONE (08:27)
[2025-03-19] MEDS ORDERED: SUGAMMADEX SODIUM 200 MG/2 ML VIAL As Ordered ONE (08:39)
[2025-03-19] MEDS ORDERED: KETAMINE HCL 200 MG/20 ML VIAL As Ordered ONE (09:01)
[2025-03-19] MEDS: HYDROMORPHONE HCL 0.5 MG/0.5 ML SYRINGE IV PRN (10:37)
[2025-03-19] MEDS: ONDANSETRON 4MG 2ML VIAL IV PRN ×2 (10:37→20:03)
[2025-03-19] MEDS: KETOROLAC 30 MG/ML 1 ML VIAL IV PRN (10:39)
[2025-03-19] MEDS: DOCUSATE SODIUM 100 MG CAPSULE PO SCH (12:03)
[2025-03-19] MEDS ORDERED: HOME MED LIST COMPLETE! XX SCH (22:50)
[2025-03-20 07:12] VITALS: O2SAT 95
[2025-03-20 07:32] LABS: BASO # 0.0 10^3/uL (0.0-0.2); BASO % 0.3 % (0.0-1.0); EOS # 0.1 10^3/uL (0.0-0.5); EOS % 1.2 % (0.0-3.0); LYMPH # 1.2 10^3/uL (1.5-5.0); LYMPH % 16.9 % (24.0-44.0); MONO # 0.5 10^3/uL (0.0-0.8); MONO % 6.8 % (2.0-8.0); NEUTROPHILS # 5.1 10^3/uL (1.5-8.5); NEUTROPHILS % 74.4 % (36.0-66.0); PLATELET COUNT, AUTOMATED 139 10^3/uL (150-450)
[2025-03-20 07:54] LABS: ALT/SGPT 19.0 U/L (7.0-40); AST/SGOT 18.0 U/L (<34); CALCIUM LEVEL 8.3 MG/DL (8.5-10.1); CARBON DIOXIDE LEVEL 24.0 MMOL/L (20-31); CHLORIDE LEVEL 112.0 MMOL/L (98-107); CREATININE FOR GFR 0.85 MG/DL (0.55-1.30); GLOMERULAR FILTRATION RATE 86.1 (>58); POTASSIUM SERUM 4.0 MMOL/L (3.5-5.1); SODIUM LEVEL 144.0 MMOL/L (136-145)
[2025-03-20] MEDS: APIXABAN 5 MG TAB PO ONE (12:44)
== END 2025-03-20 13:00 | disposition home or self-care (01) | DRG 513 ==
LOC: M SDC 06:12 → M RR INP 10:04 → M MS5PR 12:00
PROVIDERS: ADMIT Specialist; ATTEND Specialist
PROC: 8E0W4CZ Robotic Assisted Procedure of Trunk Region, Percutaneous Endoscopic Approach (ICD-10-PCS; 2025-03-19)
PROC: 0UB74ZX Excision of Bilateral Fallopian Tubes, Percutaneous Endoscopic Approach, Diagnostic (ICD-10-PCS; principal; 2025-03-19 07:30)
PROC: 0UT14ZZ Resection of Left Ovary, Percutaneous Endoscopic Approach (ICD-10-PCS; 2025-03-19 07:30)
DX: N83.202 Unspecified ovarian cyst, left side (principal); R10.2 Pelvic and perineal pain; Z88.0 Allergy status to penicillin; Z88.6 Allergy status to analgesic agent; Z88.8 Allergy status to other drugs, medicaments and biological substances; Z79.899 Other long term (current) drug therapy